=== PATIENT | male | born 1955 | race Caucasian/White ===

== ENCOUNTER 2016-12-11 03:25 | Emergency (ER) | payer OTHER ==
[2016-12-11 03:57] VITALS: BP 148/87; PULSE 76; TEMP 98.3; BMI 23.0
--- NOTE | 2016-12-11 05:20 | PDOC ---
History of Present Illness - General History Source: Patient Exam Limitations: No Limitations - History of Present Illness Initial Comments: 12/11/16 05:32 The patient is a 61 year old male with a PMHx of HTN, AFib, diabetes, hypercholesterolemia who presents to the ED with urinary frequency and dysuria for three days. The patient also reports constipation. He denies change in diet. He denies chest pain, SOB, headache, dizziness. He denies hematuria. He denies fever, chills, nausea, vomiting. <Ramila Hernandez - Last Filed: 12/11/16 05:32> <Kate Mcdonough - Last Filed: 12/11/16 07:34> - General Chief Complaint: Urinary Problem Stated Complaint: PROBLEM WITH URINATION Time Seen by Provider: 12/11/16 04:26 Past History <Ramila Hernandez - Last Filed: 12/11/16 05:32> - Past Medical History Cardiac Disorders: Yes (A-fib) Diabetes: Yes Disorders: Yes (urinary retention) HTN: Yes Hypercholesterolemia: Yes - Surgical History Abdominal Surgery: Yes (Hernia repair) - Immunization History Immunization Up to Date: Yes - Psycho/Social/Smoking Cessation Hx Suicidal Ideation: No Smoking History: Unknown if ever smoked Substance Use Type: None <Kate Mcdonough - Last Filed: 12/11/16 07:34> - Past Medical History Allergies/Adverse Reactions: Allergies Allergy/AdvReac Type Severity Reaction Status Date / Time No Known Allergies Allergy Verified 03/01/15 09:54 Home Medications: Ambulatory Orders Aspirin [ASA -] 81 mg PO DAILY 12/11/16 Glipizide Xl [Glucotrol Xl -] 5 mg PO DAILY 12/11/16 Insulin (Novolog 70/30) [Novolog Mix 70/30 Flexpen -] 0 units SQ DAILY 12/11/16 Insulin Detemir [Levemir Flextouch] 100 unit SQ ASDIR 12/11/16 Lisinopril/Hydrochlorothiazide [Lisinopril-Hctz 20-25 mg Tab] 1 each PO DAILY Metoprolol Succinate [Toprol Xl -] 25 mg PO DAILY 12/11/16 Oxybutynin Chloride [Oxybutynin Chloride ER] 10 mg PO DAILY 12/11/16 Phenazopyridine HCl [Pyridium] 100 mg PO TID #12 tablet 12/11/16 Prasugrel HCl [Effient] 10 mg PO DAILY 12/11/16 Simvastatin [Zocor -] 20 mg PO DAILY 12/11/16 Sulfamethoxazole/Trimethoprim [Bactrim Ds -] 1 tab PO BID #14 tablet 12/11/16 Tamsulosin HCl [Flomax] 0.4 mg PO DAILY 12/11/16 Review of Systems - Review of Systems Comments:: 12/11/16 05:32 GENERAL/CONSTITUTIONAL: No fever or chills. No weakness. HEAD, EYES, EARS, NOSE AND THROAT: No change in vision. No ear pain or discharge. No sore throat. CARDIOVASCULAR: No chest pain or shortness of breath. RESPIRATORY: No cough, wheezing, or hemoptysis. GASTROINTESTINAL: + constipation. No nausea, vomiting, diarrhea GENITOURINARY: + dysuria, frequency MUSCULOSKELETAL: No joint or muscle swelling or pain. No neck or back pain. SKIN: No rash NEUROLOGIC: No headache, vertigo, loss of consciousness, or change in strength/ sensation. ENDOCRINE: No increased thirst. No abnormal weight change. HEMATOLOGIC/LYMPHATIC: No anemia, easy bleeding, or history of blood clots. ALLERGIC/IMMUNOLOGIC: No hives or skin allergy. <Ramila Hernandez - Last Filed: 12/11/16 05:32> *Physical Exam - Vital Signs Last Vital Signs Temp Pulse Resp BP Pulse Ox 98.3 F 76 18 148/87 100 12/11/16 03:54 12/11/16 03:54 12/11/16 03:54 12/11/16 03:54 12/11/16 03:54 - Physical Exam Comments: 12/11/16 05:33 GENERAL: Awake, alert, and fully oriented, in no acute distress HEAD: No signs of trauma EYES: PERRLA, EOMI, sclera anicteric, conjunctiva clear ENT: Auricles normal inspection, hearing grossly normal, nares patent, oropharynx clear without exudates. Moist mucosa NECK: Normal ROM, supple, no lymphadenopathy, JVD, or masses LUNGS: Breath sounds equal, clear to auscultation bilaterally. No wheezes, and no crackles HEART: Regular rate and rhythm, normal S1 and S2, no murmurs, rubs or gallops ABDOMEN: Soft, nontender, normoactive bowel sounds. No guarding, no rebound. No masses EXTREMITIES: Normal range of motion, no edema. No clubbing or cyanosis. No cords, erythema, or tenderness NEUROLOGICAL: Cranial nerves II through XII grossly intact. Normal speech, normal gait SKIN: Warm, Dry, normal turgor, no rashes or lesions noted. <Ramila Hernandez - Last Filed: 12/11/16 05:32> - Vital Signs Last Vital Signs Temp Pulse Resp BP Pulse Ox 98.3 F 76 18 148/87 100 12/11/16 03:54 12/11/16 03:54 12/11/16 03:54 12/11/16 03:54 12/11/16 03:54 <Kate Mcdonough - Last Filed: 12/11/16 07:34> Medical Decision Making - Medical Decision Making 12/11/16 07:33 Pt comes with dysuria; no retention. He has a UTI. He will be treated with bactrim and pyridium; he can follow with Dr. Maurice, as needed. He wears contact lenses and understands that they may be stained by the pyridium. <Kate Mcdonough - Last Filed: 12/11/16 07:34> *DC/Admit/Observation/Transfer - Attestations Scribe Attestion: 12/11/16 05:33 Documentation prepared by Ramila Hernandez, acting as medical oncologist for Kate Mcdonough MD. <Ramila Hernandez - Last Filed: 12/11/16 05:32> - Discharge Dispostion Admit: No <Kate Mcdonough - Last Filed: 12/11/16 07:34> Diagnosis at time of Disposition: UTI (urinary tract infection) - Discharge Dispostion Disposition: HOME Condition at time of disposition: Stable - Prescriptions Prescriptions: Sulfamethoxazole/Trimethoprim [Bactrim Ds -] 1 tab PO BID #14 tablet Phenazopyridine HCl [Pyridium] 100 mg PO TID #12 tablet - Referrals Referrals: Saleem Harvey MD [Staff Physician] - - Patient Instructions Printed Discharge Instructions: DI for Urinary Tract Infection (UTI)
[2016-12-11] MEDS ORDERED: ACETAMINOPHEN 325 MG TABLET (FP) PO ONE (05:31)
[2016-12-11] MEDS ORDERED: SULFAMETHOXAZOLE/TRIMETHOPRIM 800MG/160MG D.S. TABLET PO ONE (05:31)
[2016-12-11] MEDS ORDERED: ACETAMINOPHEN 325 MG TABLET (FP) ONE (05:39)
[2016-12-11] MEDS ORDERED: SULFAMETHOXAZOLE/TRIMETHOPRIM 800MG/160MG D.S. TABLET ONE (05:39)
[2016-12-11 06:04] LABS: URINE APPEARANCE TURBID; URINE BILIRUBIN NEGATIVE (NEGATIVE); URINE COLOR YELLOW; URINE GLUCOSE (UA) 3+ (NEGATIVE); URINE KETONE NEGATIVE (NEGATIVE); URINE NITRITE NEGATIVE (NEGATIVE); URINE UROBILINOGEN NEGATIVE E.U./dl (0.2-1.0)
[2016-12-11 06:50] LABS: URINE BLOOD 3+ (NEGATIVE); URINE LEUK ESTERASE 3+ (NEGATIVE); URINE PROTEIN 2+ (NEGATIVE)
[2016-12-11 06:55] LABS: URINE BACTERIA FEW /hpf (NONE SEEN); URINE MUCUS FEW; URINE RBC 280 /hpf (0-3); URINE WBC 3164 /hpf (3-5); YEAST MANY
[2016-12-11] MEDS ORDERED: PHENAZOPYRIDINE HCL 100 MG TABLET (FP) PO ONE (07:01)
== END 2016-12-11 08:07 | disposition home or self-care (01) ==
LOC: JER 03:25
DX: N39.0 Urinary tract infection, site not specified (principal); I10 Essential (primary) hypertension; E11.9 Type 2 diabetes mellitus without complications; Z79.4 Long term (current) use of insulin; Z79.84 Long term (current) use of oral hypoglycemic drugs; E78.00 Pure hypercholesterolemia, unspecified; I48.91 Unspecified atrial fibrillation
CPT/HCPCS: 81003; 81015; 87086; 87186; 99282-25

== ENCOUNTER 2017-04-25 21:41 | Inpatient (IN) | payer OTHER ==
[2017-04-25] MEDS ORDERED: ALBUTEROL SO4 2.5/IPRATROPIUM 0.5 INH SOL 3 ML VIAL.NEB. NEB STA ×2 (22:17→22:18)
--- NOTE | 2017-04-25 22:17 | PDOC ---
History of Present Illness - General History Source: Patient <Cristobal Sanchez - Last Filed: 04/26/17 01:27> - General History Source: Patient Exam Limitations: No Limitations - History of Present Illness Initial Comments: 04/25/17 22:31 The patient is a 62 year old male with significant past medical history of a-fib , hypertension, hyperlipidemia, and diabetes who presents to the ED for several days of SOB and productive cough. Patient reports productive cough with yellow sputum. Denies conversational dyspnea or dyspnea on exertion. No exacerbating or alleviating factors. Patient also has complaints of chest congestion. Denies chest pain, lightheadedness, diaphoresis, jaw pain, shoulder pain, arm pain, leg swelling, nausea, or vomiting. No h/o of asthma or COPD reported. Denies any recent travels or sick contacts. The patient denies fever, chills, abdominal pain, and diarrhea. Allergies: NKDA Social History: Current smoker (half ppd). No alcohol or drug use reported. Past Surgical History: hernia repair PCP: Dr. Harinder Hardy Urologist: Dr. Romulo Candelario <Anjali Jaime - Last Filed: 04/26/17 02:45> - General Chief Complaint: Shortness of Breath Stated Complaint: SHORTNESS OF BREATH Time Seen by Provider: 04/25/17 22:02 Past History - Past Medical History Cardiac Disorders: Yes (A-fib) Diabetes: Yes Disorders: Yes (urinary retention) HTN: Yes Hypercholesterolemia: Yes - Surgical History Abdominal Surgery: Yes (Hernia repair) - Immunization History Immunization Up to Date: Yes - Psycho/Social/Smoking Cessation Hx Suicidal Ideation: No Smoking History: Current every day smoker Have you smoked in the past 12 months: Yes Number of Cigarettes Smoked Daily: 4 Information on smoking cessation initiated: No Hx Alcohol Use: No Drug/Substance Use Hx: No Substance Use Type: None <Cristobal Sanchez - Last Filed: 04/26/17 01:27> <Anjali Jaime - Last Filed: 04/26/17 02:45> - Past Medical History Allergies/Adverse Reactions: Allergies Allergy/AdvReac Type Severity Reaction Status Date / Time No Known Allergies Allergy Verified 04/25/17 22:01 Home Medications: Ambulatory Orders Aspirin [ASA -] 81 mg PO DAILY 12/11/16 Insulin (Novolog 70/30) [Novolog Mix 70/30 Flexpen -] 0 units SQ DAILY 12/11/16 Insulin Detemir [Levemir Flextouch] 100 unit SQ ASDIR 12/11/16 Lisinopril/Hydrochlorothiazide [Lisinopril-Hctz 20-25 mg Tab] 1 each PO DAILY Metoprolol Succinate [Toprol Xl -] 25 mg PO DAILY 12/11/16 Oxybutynin Chloride [Oxybutynin Chloride ER] 10 mg PO DAILY 12/11/16 Prasugrel HCl [Effient] 10 mg PO DAILY 12/11/16 Simvastatin [Zocor -] 20 mg PO DAILY 12/11/16 Tamsulosin HCl [Flomax] 0.4 mg PO DAILY 12/11/16 Glimepiride [Amaryl -] 4 mg PO DAILY@0700 03/01/17 Levofloxacin [Levaquin] 750 mg PO DAILY #9 tablet 03/02/17 Review of Systems - Review of Systems Able to Perform ROS?: Yes Comments:: 04/25/17 22:31 CONSTITUTIONAL: Absent: fever, chills, diaphoresis, generalized weakness, malaise, loss of appetite HEENT: Absent: rhinorrhea, nasal congestion, throat pain, throat swelling, difficulty swallowing, mouth swelling, ear pain, eye pain, visual Changes CARDIOVASCULAR: Absent: chest pain, syncope, palpitations, irregular heart rate, lightheadedness , peripheral edema RESPIRATORY: +productive cough with yellow sputum, SOB, chest congestion Absent: dyspnea with exertion, orthopnea, wheezing, stridor, hemoptysis GASTROINTESTINAL: Absent: abdominal pain, abdominal distension, nausea, vomiting, diarrhea, constipation, melena, hematochezia GENITOURINARY: Absent: dysuria, frequency, urgency, hesitancy, hematuria, flank pain, genital pain MUSCULOSKELETAL: Absent: myalgia, arthralgia, joint swelling SKIN: Absent: rash, itching, pallor NEUROLOGIC: Absent: headache, focal weakness or paresthesias, dizziness, unsteady gait, seizure, mental status changes, bladder or bowel incontinence <Anjali Jaime - Last Filed: 04/26/17 02:45> *Physical Exam - Vital Signs Last Vital Signs Temp Pulse Resp BP Pulse Ox 98.5 F 88 18 162/97 89 L 04/25/17 21:59 04/25/17 21:59 04/25/17 21:59 04/25/17 21:59 04/25/17 21:59 <Cristobal Sanchez - Last Filed: 04/26/17 01:27> - Vital Signs Last Vital Signs Temp Pulse Resp BP Pulse Ox 98.5 F 88 18 162/97 89 L 04/25/17 21:59 04/25/17 21:59 04/25/17 21:59 04/25/17 21:59 04/25/17 21:59 - Physical Exam Comments: 04/25/17 22:31 GENERAL: Well developed, well nourished. Awake and alert. No acute distress. HEENT: Normocephalic, atraumatic. PERRLA, EOMI. No conjunctival pallor. Sclera are non- icteric. Moist mucous membranes. Oropharynx is clear. NECK: Supple. Full ROM. No JVD. Carotid pulses 2+ and symmetric, without bruits. No thyromegaly. No lymphadenopathy. CARDIOVASCULAR: Regular rate and rhythm. No murmurs, rubs, or gallops. Distal pulses are 2+ and symmetric. PULMONARY: Mild respiratory distress. Decreased breath sounds with scattered wheezing. No conversational dyspnea. No retractions. No rales or rhonchi. ABDOMINAL: Soft. Non-tender. Non-distended. No rebound or guarding. No organomegaly. Normoactive bowel sounds. MUSCULOSKELETAL Normal range of motion at all joints. No bony deformities or tenderness. No CVA tenderness. EXTREMITIES: No cyanosis. No clubbing. No edema. No calf tenderness. SKIN: Warm and dry. Normal capillary refill. No rashes. No jaundice. NEUROLOGICAL: Alert, awake, appropriate. Cranial nerves 2-12 intact. Moving all extremities. No gross neurological deficits. <Anjali Jaime - Last Filed: 04/26/17 02:45> Heart Score/ECG Review - ECG Impressions Comment:: 04/26/17 01:29 NSR @89bpm <Anjali Jaime - Last Filed: 04/26/17 02:45> ED Treatment Course - LABORATORY CBC & Chemistry Diagram: 04/26/17 00:12 04/26/17 00:12 <Cristobal Sanchez - Last Filed: 04/26/17 01:27> - LABORATORY CBC & Chemistry Diagram: 04/26/17 00:12 04/26/17 00:12 - RADIOLOGY Radiograph Interpretation: 04/26/17 00:09 EXAM: X-ray chest Reviewed by Imaging calibration laboratory technician: FINDINGS: Heart size is normal. Bilateral interstitial opacities likely represents mild pulmonary edema. Right-sided calcified granulomas are also noted. There is a trace left pleural effusion. Bones and soft tissues are normal. IMPRESSION: Mild pulmonary edema and trace left pleural effusion, although an interstitial pneumonia is also considered. - Medications Given in the ED: ED Medications Discontinued Medications Generic Name Dose Route Start Last Admin Trade Name Freq PRN Reason Stop Dose Admin Azithromycin 500 mg 04/25/17 22:18 04/25/17 22:26 Zithromax - PO 04/25/17 22:19 500 mg ONCE STA Administration Prednisone 60 mg 04/25/17 22:18 04/25/17 22:26 Deltasone - PO 04/25/17 22:19 60 mg ONCE ONE Administration <Anjali Jaime - Last Filed: 04/26/17 02:45> Medical Decision Making - Medical Decision Making 04/26/17 01:27 Dr. Sanchez: The scribe's documentation has been prepared under my direction and personally reviewed by me in its entirery. I confirm that the note above accurately reflects all work, treatment, procedures, and medical decision making performed by me. <Cristobal Sanchez - Last Filed: 04/26/17 01:27> - Medical Decision Making 04/26/17 01:[address] Aisha Amaya (via answering service) Awaiting call back 04/26/17 01:46 Second call placed to Dr. Amaya (via answering service) Awaiting call back 04/26/17 02:44 Third call placed to Dr. Amaya (via answering service) and patient's case was discussed. <Anjali Jaime - Last Filed: 04/26/17 02:45> *DC/Admit/Observation/Transfer - Discharge Dispostion Admit: Yes <Cristobal Sanchez - Last Filed: 04/26/17 01:27> - Attestations Scribe Attestion: 04/25/17 22:31 Documentation prepared by Anjali Jaime, acting as spanish medical interpreter for Cristobal Sanchez MD/. <Anjali Jaime - Last Filed: 04/26/17 02:45> Diagnosis at time of Disposition: Elevated troponin Pneumonia Qualifiers: Pneumonia type: due to unspecified organism Laterality: left Lung location: lower lobe of lung Qualified Code(s): J18.1 - Lobar pneumonia, unspecified organism Dyspnea Qualifiers: Dyspnea type: shortness of breath Qualified Code(s): R06.02 - Shortness of breath - Referrals
[2017-04-25] MEDS ORDERED: predniSONE 20 MG TABLET (UD) PO ONE (22:18)
[2017-04-25] MEDS ORDERED: AZITHROMYCIN 250 MG TABLET (FP) PO STA (22:18)
[2017-04-25] MEDS ORDERED: AZITHROMYCIN 250 MG TABLET (FP) ONE (22:23)
[2017-04-25] MEDS ORDERED: predniSONE 20 MG TABLET (UD) ONE (22:23)
[2017-04-26] MEDS ORDERED: ALBUTEROL SO4 2.5/IPRATROPIUM 0.5 INH SOL 3 ML VIAL.NEB. NEB STA ×2 (00:01→00:45)
[2017-04-26] MEDS ORDERED: MAGNESIUM SULF 50% (8.12 MEQ/2 ML-1 GM VIAL) IVPB ONE (00:03)
[2017-04-26] MEDS ORDERED: MAGNESIUM SULF 50% (8.12 MEQ/2 ML-1 GM VIAL) ONE (00:06)
[2017-04-26] MEDS ORDERED: CEFTRIAXONE 50 ML ONE (00:07)
[2017-04-26 00:31] LABS: BASOPHIL 0.6 % (0-2.0); EOSINOPHIL 0.8 % (0-4.5); MCH 26.5 pg (25.7-33.7); MCHC 32.2 g/dl (32.0-35.9); MEAN CELL VOLUME 82.4 fl (80-96); MEAN PLT VOLUME 9.7 fl (7.5-11.1); NEUTROPHILS 79.4 % (42.8-82.8); PLATELET COUNT 228 K/MM3 (134-434); RDW 13.5 % (11.9-15.9); WHITE BLOOD COUNT 11.1 K/mm3 (4.0-10.0)
[2017-04-26 00:44] LABS: INR 1.12 (0.82-1.09); PROTHROMBIN TIME (PATIENT) 12.3 SEC (9.98-11.88)
[2017-04-26 00:55] LABS: ALBUMIN 3.4 g/dl (3.4-5.0); ANION GAP 8 (8-16); BILIRUBIN,TOTAL 3.1 mg/dL (0.2-1.0); CALCIUM 8.6 mg/dL (8.5-10.1); CO2 29 mmol/L (21-32); CREATININE 1.3 mg/dL (0.7-1.3); SGOT/AST 21 U/L (15-37); SGPT/ALT 45 U/L (12-78); TOT PROT 6.6 g/dl (6.4-8.2)
[2017-04-26 00:57] LABS: ALK PHOS 79 U/L (45-117); TROPONIN I 0.21 ng/ml (0.00-0.05)
[2017-04-26 01:00] LABS: GLUCOSE,RANDOM 400 mg/dL (74-106)
[2017-04-26] MEDS ORDERED: INSULIN REGULAR HUMAN 100 UNITS/ML *VIAL IVPUSH ONE (01:08)
[2017-04-26 05:15] VITALS: BMI 22.9
[2017-04-26] MEDS ORDERED: ACETAMINOPHEN 325 MG TABLET (FP) PO PRN (07:55)
[2017-04-26] MEDS ORDERED: INSULIN (NOVOLOG) ASPART 100 UNITS/ML 10ML VIAL ONE ×2 (08:55→22:30)
[2017-04-26] MEDS ORDERED: PT OWN MED DRAWER 7, Y5N ONE (09:01)
[2017-04-26] MEDS: LISINOPRIL 10 MG TABLET (FP) PO SCH (09:14)
[2017-04-26] MEDS: OXYBUTYNIN CHLORIDE 5 MG TABLET PO SCH ×2 (09:14→22:32)
[2017-04-26] MEDS: INSULIN SLIDING SCALE (NOVOLOG) 1 VIAL SQ SCH ×4 (09:14→22:36)
[2017-04-26] MEDS: TAMSULOSIN HCL 0.4 MG CAP.ER.24H (FP) PO SCH (09:14)
[2017-04-26] MEDS: ASPIRIN 81 MG CHEWABLE TABLETS PO SCH (09:14)
[2017-04-26] MEDS ORDERED: METOPROLOL SUCCINATE 25 MG TAB.SR.24H (FP) PO SCH (10:00)
[2017-04-26 10:57] LABS: TROPONIN I 0.16 ng/ml (0.00-0.05)
--- NOTE | 2017-04-26 11:29 | EKG ---
Test Reason : Blood Pressure : / mmHG Vent. Rate : 089 BPM Atrial Rate : 089 BPM P-R Int : 198 ms QRS Dur : 076 ms QT Int : 378 ms P-R-T Axes : 066 033 071 degrees QTc Int : 459 ms NORMAL SINUS RHYTHM NORMAL ECG NO PREVIOUS ECGS AVAILABLE Confirmed by AMELIA OLMSTEAD MD ([id number]) on 04/26/2017 11:28:26 AM Referred By: Confirmed By:AMELIA OLMSTEAD MD
--- NOTE | 2017-04-26 11:44 | HP ---
Admitting History and Physical - Primary Care Physician PCP: Aisha Amaya - Admission Chief Complaint: CHEST PAIN History of Present Illness: The patient is a 62 year old male with significant past medical history of a-fib , hypertension, hyperlipidemia, and diabetes who presents to the ED for several days of SOB and productive cough. Patient reports productive cough with yellow sputum. Denies conversational dyspnea or dyspnea on exertion. No exacerbating or alleviating factors. Patient also has complaints of chest congestion. Denies chest pain, lightheadedness, diaphoresis, jaw pain, shoulder pain, arm pain, leg swelling, nausea, or vomiting. No h/o of asthma or COPD reported. Denies any recent travels or sick contacts. The patient denies fever, chills, abdominal pain, and diarrhea. History Source: Patient, Medical Record - Smoking History Smoking history: Current every day smoker Have you smoked in the past 12 months: Yes Aproximately how many cigarettes per day: 4 - Alcohol/Substance Use Hx Alcohol Use: No Home Medications - Allergies Allergies/Adverse Reactions: Allergies Allergy/AdvReac Type Severity Reaction Status Date / Time No Known Allergies Allergy Verified 04/25/17 22:01 - Home Medications Home Medications: Ambulatory Orders Aspirin [ASA -] 81 mg PO DAILY 12/11/16 Insulin (Novolog 70/30) [Novolog Mix 70/30 Flexpen -] 0 units SQ DAILY 12/11/16 Insulin Detemir [Levemir Flextouch] 100 unit SQ ASDIR 12/11/16 Lisinopril/Hydrochlorothiazide [Lisinopril-Hctz 20-25 mg Tab] 1 each PO DAILY Metoprolol Succinate [Toprol Xl -] 25 mg PO DAILY 12/11/16 Oxybutynin Chloride [Oxybutynin Chloride ER] 10 mg PO DAILY 12/11/16 Prasugrel HCl [Effient] 10 mg PO DAILY 12/11/16 Simvastatin [Zocor -] 20 mg PO DAILY 12/11/16 Tamsulosin HCl [Flomax] 0.4 mg PO DAILY 12/11/16 Glimepiride [Amaryl -] 4 mg PO DAILY@0700 03/01/17 Levofloxacin [Levaquin] 750 mg PO DAILY #9 tablet 03/02/17 Review of Systems - Review of Systems Constitutional: reports: No Symptoms Eyes: reports: No Symptoms HENT: reports: No Symptoms Neck: reports: No Symptoms Cardiovascular: reports: Chest Pain Respiratory: reports: No Symptoms Gastrointestinal: reports: No Symptoms Genitourinary: reports: No Symptoms Musculoskeletal: reports: No Symptoms Integumentary: reports: No Symptoms Hematology/Lymphatic: reports: No Symptoms Psychiatric: reports: No Symptoms Physical Examination Vital Signs: Vital Signs Temperature 98.4 F 04/26/17 09:00 Pulse Rate 80 04/26/17 09:00 Respiratory Rate 20 04/26/17 09:00 Blood Pressure 143/91 04/26/17 09:00 O2 Sat by Pulse Oximetry (%) 95 04/26/17 09:00 Constitutional: Yes: Mild Distress Eyes: Yes: WNL HENT: Yes: WNL Neck: Yes: WNL Cardiovascular: Yes: WNL Respiratory: Yes: WNL Gastrointestinal: Yes: WNL Renal/: Yes: WNL Musculoskeletal: Yes: WNL Extremities: Yes: WNL Edema: No Peripheral Pulses WNL: Yes Integumentary: Yes: WNL Wound/Incision: Yes: Clean/Dry Neurological: Yes: WNL ...Motor Strength: WNL Psychiatric: Yes: WNL Problem List - Problems (1) Dyspnea Code(s): R06.00 - DYSPNEA, UNSPECIFIED Qualifiers: Dyspnea type: shortness of breath Qualified Code(s): R06.02 - Shortness of breath (2) Elevated troponin Code(s): R74.8 - ABNORMAL LEVELS OF OTHER SERUM ENZYMES (3) Uncontrolled diabetes mellitus Code(s): E11.65 - TYPE 2 DIABETES MELLITUS WITH HYPERGLYCEMIA Qualifiers: Diabetes mellitus type: type 2 Diabetes mellitus complication status: with unspecified complications (4) H/O heart artery stent Code(s): Z95.5 - PRESENCE OF CORONARY ANGIOPLASTY IMPLANT AND GRAFT Assessment/Plan CARDIOLOGY WORKUP LABS TELE CARDIO CONSULT ENDOCRINE CONSULT
[2017-04-26] MEDS ORDERED: MAGNESIUM HYDROX 2400MG/30ML ORAL SUSPENSION 30 ML CUP PO ONE (13:30)
[2017-04-26] MEDS: PRASUGREL HCL 10 MG TAB PO SCH (13:39)
--- NOTE | 2017-04-26 13:53 | CON.CARD ---
Consult Consult Specialty:: Cardiology Referred by:: Dr Amaya Reason for Consultation:: nstemi, chf - History of Present Illness Chief Complaint: sob History of Present Illness: 62M history of PAF, HTN, NIDDM poorly controlled, hyperlipidemia, smoker, CAD s/ p stent unknown vessel at [facility] 2014 (after abnormal stress test with small area IW ischemia normal EF) now admitted with sudden onset of SOB, orthopnea without chest pain. Noted with bilateral interstitial infiltrates and with elevated troponin. No ecg changes. Last EF 2014 was normal. - History Source History Provided By: Patient, Medical Record Limitations to Obtaining History: No Limitations - Past Medical History Cardio/Vascular: Yes: AFIB (paroxysmal), CAD, HTN, Hyperlipdemia Endocrine: Yes: Diabetes Mellitus - Alcohol/Substance Use Hx Alcohol Use: No - Smoking History Smoking history: Current every day smoker Have you smoked in the past 12 months: Yes Aproximately how many cigarettes per day: 4 Home Medications - Allergies Allergies/Adverse Reactions: Allergies Allergy/AdvReac Type Severity Reaction Status Date / Time No Known Allergies Allergy Verified 04/25/17 22:01 - Home Medications Home Medications: Ambulatory Orders Aspirin [ASA -] 81 mg PO DAILY 12/11/16 Insulin (Novolog 70/30) [Novolog Mix 70/30 Flexpen -] 0 units SQ DAILY 12/11/16 Insulin Detemir [Levemir Flextouch] 100 unit SQ ASDIR 12/11/16 Lisinopril/Hydrochlorothiazide [Lisinopril-Hctz 20-25 mg Tab] 1 each PO DAILY Metoprolol Succinate [Toprol Xl -] 25 mg PO DAILY 12/11/16 Oxybutynin Chloride [Oxybutynin Chloride ER] 10 mg PO DAILY 12/11/16 Prasugrel HCl [Effient] 10 mg PO DAILY 12/11/16 Simvastatin [Zocor -] 20 mg PO DAILY 12/11/16 Tamsulosin HCl [Flomax] 0.4 mg PO DAILY 12/11/16 Glimepiride [Amaryl -] 4 mg PO DAILY@0700 03/01/17 Levofloxacin [Levaquin] 750 mg PO DAILY #9 tablet 03/02/17 Review of Systems - Review of Systems Constitutional: reports: No Symptoms Eyes: reports: No Symptoms HENT: reports: No Symptoms Neck: reports: No Symptoms Cardiovascular: reports: Shortness of Breath Respiratory: reports: SOB, SOB on Exertion Gastrointestinal: reports: No Symptoms Genitourinary: reports: No Symptoms - Risk Factors Known Risk Factors: Yes: Diabetes Mellitus, Hypercholesterolemia, Smoking Vital Signs: Vital Signs Temperature 98.4 F 04/26/17 09:00 Pulse Rate 80 04/26/17 09:00 Respiratory Rate 20 04/26/17 09:00 Blood Pressure 143/91 04/26/17 09:00 O2 Sat by Pulse Oximetry (%) 95 04/26/17 09:00 Constitutional: Yes: Well Nourished, No Distress Eyes: Yes: Conjunctiva Clear, EOM Intact HENT: Yes: Atraumatic, Normocephalic Neck: Yes: Supple, Trachea Midline Respiratory: Yes: Rales (bilat bases) Gastrointestinal: Yes: Normal Bowel Sounds Cardiovascular: Yes: Regular Rate and Rhythm JVD: Yes Carotid Bruit: No PMI: Non-Displaced Heart Sounds: Yes: S1, S2 Musculoskeletal: Yes: WNL Extremities: Yes: WNL Edema: No Peripheral Pulses WNL: Yes Neurological: Yes: WNL - Other Data Labs, Other Data: INR, PTT INR 1.12 (0.82-1.09) 04/26/17 00:12 Troponin, BNP 04/26/17 08:25 Troponin I 0.16 H Troponin, BNP 04/26/17 08:25 Troponin I 0.16 H nsr, nl axis, intervals, no st or t wave changes. Ejection Fraction %: LVEF > or = 40 % Imaging - Results Chest X-ray: Report Reviewed (bilat inc markings, small nodules.) EKG: Report Reviewed (normal ecg) Problem List - Problems (1) Elevated troponin Assessment/Plan: He has known CAD and likely elevated tnI is due to small nstemi. continue asa and effient for now. continue home medications. Plan is for transfer to [facility] for cardiac cath poss PCI 04/27/17. Code(s): R74.8 - ABNORMAL LEVELS OF OTHER SERUM ENZYMES (2) Dyspnea Assessment/Plan: he is in mild chf on examination. check bnp, start low dose lasix. needs cardiac cath to evaluate nstemi in the setting of chf and known CAD. Code(s): R06.00 - DYSPNEA, UNSPECIFIED Qualifiers: Dyspnea type: shortness of breath Qualified Code(s): R06.02 - Shortness of breath (3) PAF (paroxysmal atrial fibrillation) Assessment/Plan: NSR at present. no AC for now. Code(s): I48.0 - PAROXYSMAL ATRIAL FIBRILLATION
[2017-04-26] MEDS ORDERED: METOPROLOL SUCCINATE 25 MG TAB.SR.24H (FP) PO ONE (15:14)
[2017-04-26] MEDS ORDERED: INSULIN DETEMIR 100 UNITS/ML MDV SQ SCH (22:00)
[2017-04-26] MEDS ORDERED: ATORVASTATIN CA 20 MG TABLET (FP) PO SCH (22:00)
[2017-04-27] MEDS: INSULIN SLIDING SCALE (NOVOLOG) 1 VIAL SQ SCH ×2 (06:33→11:06)
[2017-04-27] MEDS ORDERED: GLIMEPIRIDE 4 MG TABLET (FP) PO SCH (07:00)
[2017-04-27 07:25] LABS: MCH 27.3 pg (25.7-33.7); MCHC 33.3 g/dl (32.0-35.9); MEAN PLT VOLUME 9.5 fl (7.5-11.1); PLATELET COUNT 224 K/MM3 (134-434); RDW 13.5 % (11.9-15.9)
[2017-04-27 08:00] LABS: ALBUMIN 2.9 g/dl (3.4-5.0); ANION GAP 8 (8-16); CALCIUM 8.6 mg/dL (8.5-10.1); CO2 29 mmol/L (21-32); GLUCOSE,RANDOM 105 mg/dL (74-106)
[2017-04-27 08:05] LABS: ALK PHOS 63 U/L (45-117); BILIRUBIN,TOTAL 3.3 mg/dL (0.2-1.0); CREATININE 0.6 mg/dL (0.7-1.3); SGOT/AST 12 U/L (15-37); SGPT/ALT 34 U/L (12-78); TOT PROT 5.5 g/dl (6.4-8.2)
[2017-04-27] MEDS: LISINOPRIL 10 MG TABLET (FP) PO SCH ×2 (08:43→10:56)
[2017-04-27] MEDS: OXYBUTYNIN CHLORIDE 5 MG TABLET PO SCH ×2 (08:43→10:56)
[2017-04-27] MEDS: METOPROLOL SUCCINATE 25 MG TAB.SR.24H (FP) PO SCH ×2 (08:43→10:56)
[2017-04-27] MEDS: TAMSULOSIN HCL 0.4 MG CAP.ER.24H (FP) PO SCH (08:43)
[2017-04-27] MEDS: ASPIRIN 81 MG CHEWABLE TABLETS PO SCH ×2 (08:44→10:56)
[2017-04-27] MEDS: PRASUGREL HCL 10 MG TAB PO SCH ×2 (08:44→10:56)
--- NOTE | 2017-04-27 10:52 | DS ---
Physical Examination Vital Signs: Vital Signs Temperature 98.4 F 04/27/17 08:30 Pulse Rate 73 04/27/17 08:30 Respiratory Rate 20 04/27/17 08:30 Blood Pressure 140/81 04/27/17 08:30 O2 Sat by Pulse Oximetry (%) 94 L 04/27/17 09:00 Constitutional: Yes: Mild Distress Eyes: Yes: WNL HENT: Yes: WNL Neck: Yes: WNL Cardiovascular: Yes: WNL Respiratory: Yes: WNL Gastrointestinal: Yes: WNL Renal/: Yes: WNL Musculoskeletal: Yes: WNL Extremities: Yes: WNL Edema: No Peripheral Pulses WNL: Yes Integumentary: Yes: WNL Wound/Incision: Yes: Clean/Dry Neurological: Yes: WNL ...Motor Strength: WNL Psychiatric: Yes: WNL Labs: CBC, BMP 04/27/17 06:07 04/27/17 06:07 Discharge Summary Reason For Visit: PNEUMONIA ELEVATED TROPONIN Current Active Problems Dyspnea (Acute) Elevated troponin (Acute) H/O heart artery stent (Acute) PAF (paroxysmal atrial fibrillation) (Acute) Pneumonia (Acute) Uncontrolled diabetes mellitus (Acute) Procedures: Principal: LABS Hospital Course: ADMITTED TO TELEMETRY AND POSITIVE ACUTE CORONARY SYNDROME DIAGNOSED, TRANSFER TO [facility] FOR CARDIAC CATH Condition: Fair - Instructions Diet, Activity, Other Instructions: LOW SODIUM/FAT Referrals: Harinder Hardy MD [Primary Care Provider] - Disposition: TRANSFER ACUTE CARE/OTHER HOSP - Home Medications Comprehensive Discharge Medication List: Ambulatory Orders Aspirin [ASA -] 81 mg PO DAILY 12/11/16 Insulin (Novolog 70/30) [Novolog Mix 70/30 Flexpen -] 0 units SQ DAILY 12/11/16 Insulin Detemir [Levemir Flextouch] 100 unit SQ ASDIR 12/11/16 Lisinopril/Hydrochlorothiazide [Lisinopril-Hctz 20-25 mg Tab] 1 each PO DAILY Metoprolol Succinate [Toprol Xl -] 25 mg PO DAILY 12/11/16 Oxybutynin Chloride [Oxybutynin Chloride ER] 10 mg PO DAILY 12/11/16 Prasugrel HCl [Effient] 10 mg PO DAILY 12/11/16 Simvastatin [Zocor -] 20 mg PO DAILY 12/11/16 Tamsulosin HCl [Flomax] 0.4 mg PO DAILY 12/11/16 Glimepiride [Amaryl -] 4 mg PO DAILY@0700 03/01/17 Levofloxacin [Levaquin] 750 mg PO DAILY #9 tablet 03/02/17
[2017-04-27 13:58] VITALS: BP 132/79; PULSE 76; TEMP 98.5
== END 2017-04-27 14:35 | disposition short-term general hospital (02) | DRG 139 ==
LOC: JER 21:41 → JERBED 04-26 01:25 → J4W 04-26 04:47
PROVIDERS: ADMIT Family Medicine; ATTEND Family Medicine
DX: J18.1 Lobar pneumonia, unspecified organism (principal); E11.65 Type 2 diabetes mellitus with hyperglycemia; Z79.4 Long term (current) use of insulin; E78.00 Pure hypercholesterolemia, unspecified; I10 Essential (primary) hypertension; Z72.0 Tobacco use; I25.10 Atherosclerotic heart disease of native coronary artery without angina pectoris; Z95.5 Presence of coronary angioplasty implant and graft; I21.4 Non-ST elevation (NSTEMI) myocardial infarction; I48.0 Paroxysmal atrial fibrillation; J90 Pleural effusion, not elsewhere classified; Z79.82 Long term (current) use of aspirin
CPT/HCPCS: 36415; 71020-TC; 80053; 80061; 82550; 82553; 83036; 83721; 84484; 85025; 85027; 85610; 87040; 93005; 93010; 99285-25

== ENCOUNTER 2017-05-04 01:45 | Emergency (ER) | payer OTHER ==
[2017-05-04 01:52] VITALS: TEMP 97.8; BMI 24.5
[2017-05-04] MEDS ORDERED: ASPIRIN 81 MG CHEWABLE TABLETS PO ONE (01:55)
--- NOTE | 2017-05-04 01:55 | PDOC ---
History of Present Illness - General History Source: Patient Exam Limitations: No Limitations - History of Present Illness Initial Comments: 05/04/17 02:29 The patient is a 62 year old male, with significant past medical history of a- fib, hypertension, hyperlipidemia, and diabetes, who presents to the ED with shortness of breath and cough. Pt was seen in the ED on 04/25/17 for several days of shortness of breath and productive cough. He was a smoker at the time. He has no diagnosed history of asthma or copd. Pt was admitted for suspicion of pneumonia and elevation of troponins (nstemi [place]). Pt was transferred to [facility] for cardiac catheterization and was told that everything was negative. He was discharged a few days later. He presents to the ED today with continued shortness of breath. Pt has not smoked since. Pt denies having any chest pain or fever. He reports that his cough is now nonproductive. Pt denies any recent travel or sick contacts. <Melanie Perkins - Last Filed: 05/04/17 03:48> - General History Source: Patient <Cristobal Sanchez - Last Filed: 05/04/17 05:45> - General Chief Complaint: Shortness of Breath Stated Complaint: DIFFICULTY BREATHING Time Seen by Provider: 05/04/17 01:47 Past History <Melanie Perkins - Last Filed: 05/04/17 03:48> - Past Medical History Anemia: No Asthma: No Cancer: No Cardiac Disorders: Yes (A-fib) CVA: No COPD: No CHF: No Dementia: Yes (TYPE 2) Diabetes: Yes GI Disorders: No Disorders: Yes (urinary retention) HTN: Yes Hypercholesterolemia: Yes Liver Disease: Yes (CHI JOHN SYNDROME) Seizures: No Thyroid Disease: No - Surgical History Abdominal Surgery: Yes (Hernia repair) Appendectomy: No Cardiac Surgery: Yes (1 STENT 1/2 YRS AGO) Cholecystectomy: No Lung Surgery: No Neurologic Surgery: No Orthopedic Surgery: No - Immunization History Immunization Up to Date: Yes - Psycho/Social/Smoking Cessation Hx Suicidal Ideation: No Smoking History: Former smoker Have you smoked in the past 12 months: No Number of Cigarettes Smoked Daily: 4 If you are a former smoker, when did you quit?: 2 weeks Information on smoking cessation initiated: No Hx Alcohol Use: No Drug/Substance Use Hx: No Substance Use Type: None Hx Substance Use Treatment: No <Cristobal Sanchez - Last Filed: 05/04/17 05:45> - Past Medical History Allergies/Adverse Reactions: Allergies Allergy/AdvReac Type Severity Reaction Status Date / Time No Known Allergies Allergy Verified 05/04/17 01:49 Home Medications: Ambulatory Orders Aspirin [ASA -] 81 mg PO DAILY 12/11/16 Insulin (Novolog 70/30) [Novolog Mix 70/30 Flexpen -] 0 units SQ DAILY 12/11/16 Insulin Detemir [Levemir Flextouch] 100 unit SQ ASDIR 12/11/16 Lisinopril/Hydrochlorothiazide [Lisinopril-Hctz 20-25 mg Tab] 1 each PO DAILY Metoprolol Succinate [Toprol XL -] 25 mg PO DAILY 12/11/16 Oxybutynin Chloride [Oxybutynin Chloride ER] 10 mg PO DAILY 12/11/16 Prasugrel HCl [Effient] 10 mg PO DAILY 12/11/16 Simvastatin [Zocor -] 20 mg PO DAILY 12/11/16 Tamsulosin HCl [Flomax -] 0.4 mg PO DAILY 12/11/16 Glimepiride [Amaryl -] 4 mg PO DAILY@0700 03/01/17 Albuterol Sulfate Inhaler - [Ventolin HFA Inhaler -] 2 inh IH Q6H #1 inh Azithromycin [Zithromax -] 250 mg PO UTDICT #6 tab 05/04/17 Methylprednisolone [Medrol Dose Cas] 4 mg PO ASDIR #21 tablet 05/04/17 Tadalafil [Cialis] 5 mg PO DAILY 05/04/17 Review of Systems - Review of Systems Comments:: 05/04/17 02:32 CONSTITUTIONAL: Absent: fever, no chills, no fatigue EYES: Absent: visual changes ENT: Absent: ear pain, no sore throat CARDIOVASCULAR: Absent: chest pain, no palpitations RESPIRATORY: Present: cough, no SOB GI: Absent: abdominal pain, no nausea, no vomiting, no constipation, no diarrhea GENITOURINARY: Absent: dysuria, no frequency, no hematuria MUSKULOSKELETAL: Absent: back pain, no arthralgia, no myalgia SKIN: Absent: rash NEURO: Absent: headache <Melanie Perkins - Last Filed: 05/04/17 03:48> *Physical Exam - Vital Signs Last Vital Signs Temp Pulse Resp BP Pulse Ox 97.8 F 78 24 163/93 93 L 05/04/17 01:49 05/04/17 01:49 05/04/17 01:49 05/04/17 01:49 05/04/17 01:49 - Physical Exam Comments: 05/04/17 02:32 GENERAL: Well-appearing, well-nourished. No apparent distress. HEENT: Normocephalic, atraumatic. PERRL, EOM intact. CARDIOVASCULAR: Normal S1, S2. Regular rate and rhythm. PULMONARY: +Decreased breath sounds at the bases. ABDOMEN: Soft, non-distended, non-tender. EXTREMITIES: Normal ROM in all four extremities. No gross deformities. SKIN: Warm, dry. No rash NEUROLOGICAL: No focal neurological deficits. <Melanie Perkins - Last Filed: 05/04/17 03:48> - Vital Signs Last Vital Signs Temp Pulse Resp BP Pulse Ox 97.8 F 78 24 163/93 93 L 05/04/17 01:49 05/04/17 01:49 05/04/17 01:49 05/04/17 01:49 05/04/17 01:49 <Cristobal Sanchez - Last Filed: 05/04/17 05:45> Heart Score/ECG Review - ECG Intrepretation Comment:: 05/04/17 03:48 EKG was reviewed by Dr. Sanchez a 3:14. Impression: Normal sinus rhythm. <Melanie Perkins - Last Filed: 05/04/17 03:48> ED Treatment Course - LABORATORY CBC & Chemistry Diagram: 05/04/17 02:03 05/04/17 02:03 - ADDITIONAL ORDERS Additional order review: 05/04/17 02:03 RBC 4.24 MCV 82.5 MCHC 32.5 RDW 13.9 MPV 9.1 Neutrophils % 61.1 D Lymphocytes % 27.9 D Monocytes % 8.1 Eosinophils % 2.0 D Basophils % 0.9 <Melanie Perkins - Last Filed: 05/04/17 03:48> - LABORATORY CBC & Chemistry Diagram: 05/04/17 02:03 05/04/17 02:03 <Cristobal Sanchez Last Filed: 05/04/17 05:45> Medical Decision Making - Medical Decision Making 05/04/17 05:44 Dr. Sanchez: The scribe's documentation has been prepared under my direction and personally reviewed by me in its entirery. I confirm that the note above accurately reflects all work, treatment, procedures, and medical decision making performed by me. Patient feels better and would like to go home. Pt to follow up with Dr. Amaya on Sunday for re-evaluation. Pt troponin has improved since his last admission last week. <Cristobal Sanchez - Last Filed: 05/04/17 05:45> *DC/Admit/Observation/Transfer - Attestations Scribe Attestion: 05/04/17 02:3 Documentation prepared by Melanie Perkins, acting as medical editor for Cristobal Sanchez MD. <Melanie Perkins - Last Filed: 05/04/17 03:48> - Discharge Dispostion Admit: No <Cristobal Sanchez - Last Filed: 05/04/17 05:45> Diagnosis at time of Disposition: Dyspnea - Discharge Dispostion Disposition: HOME Condition at time of disposition: Stable - Prescriptions Prescriptions: Methylprednisolone [Medrol Dose Cas] 4 mg PO ASDIR #21 tablet Albuterol Sulfate Inhaler - [Ventolin HFA Inhaler -] 2 inh IH Q6H #1 inh Azithromycin [Zithromax -] 250 mg PO UTDICT #6 tab - Referrals Referrals: Harinder Hardy MD [Primary Care Provider] - Emil Scherer MD [Staff Physician] - Aisha Amaya MD [Staff Physician] - - Patient Instructions Printed Discharge Instructions: DI for Shortness of Breath
[2017-05-04] MEDS ORDERED: ALBUTEROL SO4 2.5/IPRATROPIUM 0.5 INH SOL 3 ML VIAL.NEB. NEB STA (01:59)
[2017-05-04] MEDS ORDERED: MAGNESIUM SULF 50% (8.12 MEQ/2 ML-1 GM VIAL) IVPB ONE (01:59)
[2017-05-04] MEDS ORDERED: methylPREDNISolone NA SUCC 125 MG/2 ML VIAL IVPB ONE (01:59)
[2017-05-04] MEDS ORDERED: MAGNESIUM SULF 50% (8.12 MEQ/2 ML-1 GM VIAL) ONE (02:08)
[2017-05-04] MEDS ORDERED: ASPIRIN 81 MG CHEWABLE TABLETS ONE (02:08)
[2017-05-04] MEDS ORDERED: ALBUTEROL SO4 2.5/IPRATROPIUM 0.5 INH SOL 3 ML VIAL.NEB. NEB ONE (02:09)
[2017-05-04] MEDS ORDERED: methylPREDNISolone NA SUCC 125 MG/2 ML VIAL ONE (02:09)
[2017-05-04 02:11] LABS: BASOPHIL 0.9 % (0-2.0); MCH 26.8 pg (25.7-33.7); MCHC 32.5 g/dl (32.0-35.9); MEAN CELL VOLUME 82.5 fl (80-96); MEAN PLT VOLUME 9.1 fl (7.5-11.1); NEUTROPHILS 61.1 % (42.8-82.8); PLATELET COUNT 280 K/MM3 (134-434); RDW 13.9 % (11.9-15.9)
[2017-05-04 02:27] LABS: INR 1.06 (0.82-1.09); PROTHROMBIN TIME (PATIENT) 11.7 SEC (9.98-11.88)
[2017-05-04 02:37] LABS: ALBUMIN 3.2 g/dl (3.4-5.0); ANION GAP 10 (8-16); CALCIUM 8.5 mg/dL (8.5-10.1); CO2 26 mmol/L (21-32); CREATININE 1.1 mg/dL (0.7-1.3); MAGNESIUM 1.8 mg/dL (1.8-2.4); SGOT/AST 27 U/L (15-37); SGPT/ALT 49 U/L (12-78); TOT PROT 6.2 g/dl (6.4-8.2)
[2017-05-04 02:40] LABS: ALK PHOS 68 U/L (45-117); TROPONIN I 0.07 ng/ml (0.00-0.05)
[2017-05-04 02:51] LABS: GLUCOSE,RANDOM 399 mg/dL (74-106)
[2017-05-04 03:18] LABS: URINE APPEARANCE CLEAR; URINE BILIRUBIN NEGATIVE (NEGATIVE); URINE BLOOD NEGATIVE (NEGATIVE); URINE COLOR YELLOW; URINE GLUCOSE (UA) 3+ (NEGATIVE); URINE KETONE NEGATIVE (NEGATIVE); URINE LEUK ESTERASE NEGATIVE (NEGATIVE); URINE NITRITE NEGATIVE (NEGATIVE)
[2017-05-04 03:23] LABS: URINE PROTEIN 1+ (NEGATIVE)
[2017-05-04 03:26] LABS: URINE BACTERIA RARE /hpf (NONE SEEN); URINE HYALINE CAST 1 /lpf; URINE MUCUS RARE; URINE RBC 1 /hpf (0-3); URINE WBC 1 /hpf (3-5)
[2017-05-04 05:14] VITALS: BP 156/89; PULSE 80
--- NOTE | 2017-05-04 09:13 | EKG ---
Test Reason : Blood Pressure : / mmHG Vent. Rate : 075 BPM Atrial Rate : 075 BPM P-R Int : 206 ms QRS Dur : 084 ms QT Int : 404 ms P-R-T Axes : 083 036 059 degrees QTc Int : 451 ms NORMAL SINUS RHYTHM RSR' OR QR PATTERN IN V1 SUGGESTS RIGHT VENTRICULAR CONDUCTION DELAY WHEN COMPARED WITH ECG OF 26-APR-2017 01:13, NO SIGNIFICANT CHANGE WAS FOUND Confirmed by JOLENE KELLEY MD ([id number]) on 05/04/2017 9:12:54 AM Referred By: Confirmed By:JOLENE KELLEY MD
== END 2017-05-04 05:57 | disposition home or self-care (01) ==
LOC: JER 01:45
PROC: 3E0F7GC Introduction of Other Therapeutic Substance into Respiratory Tract, Via Natural or Artificial Opening (ICD-10-PCS; principal; 2017-05-04)
PROC: 3E0333Z Introduction of Anti-inflammatory into Peripheral Vein, Percutaneous Approach (ICD-10-PCS; 2017-05-04)
PROC: 3E033GC Introduction of Other Therapeutic Substance into Peripheral Vein, Percutaneous Approach (ICD-10-PCS; 2017-05-04)
DX: R06.02 Shortness of breath (principal); I25.10 Atherosclerotic heart disease of native coronary artery without angina pectoris; I10 Essential (primary) hypertension; Z95.5 Presence of coronary angioplasty implant and graft; Z87.891 Personal history of nicotine dependence; I48.91 Unspecified atrial fibrillation; E11.9 Type 2 diabetes mellitus without complications; Z79.4 Long term (current) use of insulin; E78.5 Hyperlipidemia, unspecified; R33.8 Other retention of urine; E80.6 Other disorders of bilirubin metabolism
CPT/HCPCS: 36415; 71020-TC; 80053; 81003; 81015; 82550; 82553; 83735; 84484; 85025; 85610; 93005; 93010; 94640; 96374; 96375; 99284-25

== ENCOUNTER 2017-05-15 10:07 | Emergency (ER) | payer OTHER ==
[2017-05-15 10:14] VITALS: TEMP 98; BMI 24.5
--- NOTE | 2017-05-15 11:43 | PDOC ---
*Physical Exam - Vital Signs Last Vital Signs Temp Pulse Resp BP Pulse Ox 98 F 82 18 149/96 97 05/15/17 10:09 05/15/17 10:09 05/15/17 10:09 05/15/17 10:09 05/15/17 10:09 ED Treatment Course - LABORATORY CBC & Chemistry Diagram: 05/15/17 11:23 05/15/17 11:23 Medical Decision Making - Medical Decision Making 05/15/17 11:43 Pt seen by the Advanced Practice Provider under my direct supervision Ancillary studies reviewed I agree with plan as outlined by the Advanced Practice Provider GRADY Mccoy *DC/Admit/Observation/Transfer Diagnosis at time of Disposition: Cough - Discharge Dispostion Disposition: AGAINST MEDICAL ADVICE Condition at time of disposition: Fair - Referrals Referrals: Willian Lund MD [Staff Physician] - - Patient Instructions Printed Discharge Instructions: DI for Emphysema, Emphysema: How You Get It and How to Fight It Additional Instructions: Today, you are signing out AGAINST MEDICAL ADVICE I do want you to follow up with referred compressor service technician. Please also notify your physician of today's visit and today's findings. Please bring copy of your CAT scan report with you.
[2017-05-15 11:55] LABS: CALCIUM 9.3 mg/dL (8.5-10.1)
[2017-05-15 12:02] LABS: ALBUMIN 3.3 g/dl (3.4-5.0); ANION GAP 7 (8-16); BILIRUBIN,TOTAL 2.6 mg/dL (0.2-1.0); CO2 30 mmol/L (21-32); CREATININE 0.8 mg/dL (0.7-1.3); GLUCOSE,RANDOM 255 mg/dL (74-106); SGOT/AST 30 U/L (15-37); SGPT/ALT 51 U/L (12-78); TOT PROT 6.2 g/dl (6.4-8.2)
[2017-05-15 12:04] LABS: ALK PHOS 66 U/L (45-117)
--- NOTE | 2017-05-15 12:12 | PDOC ---
History of Present Illness - General Chief Complaint: Shortness of Breath Stated Complaint: CONGESTION Time Seen by Provider: 05/15/17 10:38 History Source: Patient Exam Limitations: No Limitations - History of Present Illness Initial Comments: 05/15/17 11:07 62-year-old male with history of diabetes, A. fib, and ex-smoker (4 weeks ago ) presents with continual dry cough causing him difficulty taking a deep breath and mild shortness of breath during coughing episodes. Patient states symptoms are not worse at a certain time of the day and is not aggravated by certain activity. Patient denies lower extremity edema, chest pain, palpitations, fever , productive cough, abdominal pain, back pain, or weakness. Patient does state has had intermittent chills since onset which began approximately 4 weeks ago. Patient states was treated with IV antibiotics initially due to a pneumonia and then treated with antibiotics by mouth for bronchitis which he completed including the prednisone. Timing/Duration: reports: changing over time Severity: reports: mild Possible Cause: Yes: occasional episodes Associated Symptoms: reports: cough, fever/chills (chills only), shortness of breath. denies: wheezing Past History - Travel Traveled outside of the country in the last 30 days: No Close contact w/someone who was outside of country & ill: No - Past Medical History Allergies/Adverse Reactions: Allergies Allergy/AdvReac Type Severity Reaction Status Date / Time No Known Allergies Allergy Verified 05/15/17 10:14 Home Medications: Ambulatory Orders Aspirin [ASA -] 81 mg PO DAILY 12/11/16 Insulin (Novolog 70/30) [Novolog Mix 70/30 Flexpen -] 0 units SQ DAILY 12/11/16 Insulin Detemir [Levemir Flextouch] 100 unit SQ ASDIR 12/11/16 Lisinopril/Hydrochlorothiazide [Lisinopril-Hctz 20-25 mg Tab] 1 each PO DAILY Metoprolol Succinate [Toprol XL -] 25 mg PO DAILY 12/11/16 Oxybutynin Chloride [Oxybutynin Chloride ER] 10 mg PO DAILY 12/11/16 Prasugrel HCl [Effient] 10 mg PO DAILY 12/11/16 Simvastatin [Zocor -] 20 mg PO DAILY 12/11/16 Tamsulosin HCl [Flomax -] 0.4 mg PO DAILY 12/11/16 Glimepiride [Amaryl -] 4 mg PO DAILY@0700 03/01/17 Albuterol Sulfate Inhaler - [Ventolin HFA Inhaler -] 2 inh IH Q6H #1 inh Azithromycin [Zithromax -] 250 mg PO UTDICT #6 tab 05/04/17 Methylprednisolone [Medrol Dose Cas] 4 mg PO ASDIR #21 tablet 05/04/17 Tadalafil [Cialis] 5 mg PO DAILY 05/04/17 Anemia: No Asthma: No Cancer: No Cardiac Disorders: Yes (A-fib) CVA: No COPD: No CHF: No Dementia: Yes (TYPE 2) Diabetes: Yes GI Disorders: No Disorders: Yes (urinary retention) HTN: Yes Hypercholesterolemia: Yes Liver Disease: Yes (CHI JOHN SYNDROME) Seizures: No Thyroid Disease: No - Surgical History Abdominal Surgery: Yes (Hernia repair) Appendectomy: No Cardiac Surgery: Yes (1 STENT 1/2 YRS AGO) Cholecystectomy: No Lung Surgery: No Neurologic Surgery: No Orthopedic Surgery: No - Immunization History Immunization Up to Date: Yes - Psycho/Social/Smoking Cessation Hx Suicidal Ideation: No Smoking History: Current every day smoker Have you smoked in the past 12 months: Yes Number of Cigarettes Smoked Daily: 4 If you are a former smoker, when did you quit?: 2 weeks Information on smoking cessation initiated: No Hx Alcohol Use: No Drug/Substance Use Hx: No Substance Use Type: None Hx Substance Use Treatment: No Patient Lives Alone: No Respiratory Specific PMHX - Complaint Specific PMHX Bronchitis: Yes Pneumonia: Yes Review of Systems - Review of Systems Able to Perform ROS?: Yes Constitutional: Yes: Chills HEENTM: No: Symptoms Reported Respiratory: Yes: Cough. No: Orthopnea, Wheezing Cardiac (ROS): No: Symptoms Reported ABD/GI: No: Symptoms Reported : No: Symptoms Reported Musculoskeletal: No: Symptoms Reported Integumentary: No: Symptoms Reported Neurological: No: Symptoms reported *Physical Exam - Vital Signs Last Vital Signs Temp Pulse Resp BP Pulse Ox 98 F 82 18 149/96 97 05/15/17 10:09 05/15/17 10:09 05/15/17 10:09 05/15/17 10:05/15/17 10:09 - Physical Exam General Appearance: Yes: Nourished, Appropriately Dressed. No: Apparent Distress HEENT: positive: EOMI, LAINE, TMs Normal, Pharynx Normal. negative: Pale Conjunctivae Neck: positive: Supple Respiratory/Chest: positive: Lungs Clear, Normal Breath Sounds. negative: Respiratory Distress, Accessory Muscle Use Cardiovascular: positive: Regular Rhythm, Regular Rate. negative: Murmur Gastrointestinal/Abdominal: negative: Distended, Tenderness Extremity: positive: Normal Capillary Refill. negative: Pedal Edema Integumentary: positive: Normal Color, Warm, Moist Neurologic: positive: Motor Strength 5/5 (ambulatory) ED Treatment Course - LABORATORY CBC & Chemistry Diagram: 05/15/17 11:23 05/15/17 11:23 - ADDITIONAL ORDERS Additional order review: Laboratory Results 05/15/17 11:23 Sodium 139 Potassium 4.2 Chloride 102 Carbon Dioxide 30 Anion Gap 7 L BUN 20 H Creatinine 0.8 D Creat Clearance w eGFR > 60 Random Glucose 255 H D Calcium 9.3 Total Bilirubin 2.6 H D AST 30 ALT 51 Alkaline Phosphatase 66 Creatine Kinase 239 Troponin I 0.10 H D Total Protein 6.2 L Albumin 3.3 L - RADIOLOGY Radiology Studies Ordered: Category Date Time Status CHEST CT WITHOUT CONTRAST [CT] Stat CT Scan 05/15/17 11:04 Taken Medical Decision Making - Medical Decision Making 05/15/17 12:00 Patient with continual dry cough despite being on antibiotics 2. Patient on exam had a normal O2 sat of 98% on room air with no lower extremity edema or abnormal lung sounds. Patient's previous chest x-ray reviewed and labs were improved. Patient ordered for CT of the chest without contrast. Patient also ordered for labs including troponin and EKG. 05/15/17 13:11 Laboratory Tests 04/26/17 05/04/17 05/15/17 08:25 02:03 11:23 WBC 8.5 Hgb 12.1 Hct 36.4 Plt Count 237 Neutrophils % 73.2 Sodium Potassium Chloride Carbon Dioxide Anion Gap BUN Creatinine Random Glucose 399 H* D Calcium Total Bilirubin AST ALT CK-MB (CK-2) 2.53 Troponin I 0.16 H 0.07 H D 05/15/17 11:23 WBC Hgb Hct Plt Count Neutrophils % Sodium 139 Potassium 4.2 Chloride 102 Carbon Dioxide 30 Anion Gap 7 L BUN 20 H Creatinine 0.8 D Random Glucose 255 H D Calcium 9.3 Total Bilirubin 2.6 H D AST 30 ALT 51 CK-MB (CK-2) 5.912 H Troponin I 0.10 H D 05/15/17 13:[address] Amaya to admit for Dr. Emanuel 05/15/17 13:49 CT of the chest shows emphysema changes to the central lobular region. There is also mild bronchiolectasis present at the bases. There is noted fine granuloma in the right base right middle lobe and right upper lobe. Patient also noncalcified 4.9 mm nodule present within the left upper lobe. A 3.8 mm subpleural nodule noted in the left upper lobe and a 4.4 mm subpleural nodule noted within the lateral segment of the right middle lobe. Is also noted a small pleural effusions present bilateral larger on the right. Patient will be given a DuoNeb and will be admitted for COPD exacerbation and elevated troponin. 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 Patient states cannot loose this income. Patient stands he has to sign out AGAINST MEDICAL ADVICE and is fully aware that he may develop respiratory distress and then he has elevated troponins. Patient will complete the AMA forms. *DC/Admit/Observation/Transfer Diagnosis at time of Disposition: Cough - Discharge Dispostion Disposition: AGAINST MEDICAL ADVICE Condition at time of disposition: Fair - Referrals Referrals: Willian Lund MD [Staff Physician] - - Patient Instructions Printed Discharge Instructions: DI for Emphysema, Emphysema: How You Get It and How to Fight It Additional Instructions: Today, you are signing out AGAINST MEDICAL ADVICE I do want you to follow up with referred veterinarian helper. Please also notify your physician of today's visit and today's findings. Please bring copy of your CAT scan report with you.
[2017-05-15 12:13] LABS: MEAN PLT VOLUME 9.8 fl (7.5-11.1); WHITE BLOOD COUNT 8.5 K/mm3 (4.0-10.0)
[2017-05-15 12:15] LABS: BASOPHIL 0.6 % (0-2.0); EOSINOPHIL 1.3 % (0-4.5); MCH 27.4 pg (25.7-33.7); MCHC 33.3 g/dl (32.0-35.9); MEAN CELL VOLUME 82.3 fl (80-96); NEUTROPHILS 73.2 % (42.8-82.8); PLATELET COUNT 237 K/MM3 (134-434); RDW 14.2 % (11.9-15.9)
[2017-05-15 12:37] LABS: CK INDEX FOR DOBBS 2.5 % (0.0-5.0)
[2017-05-15] MEDS ORDERED: ALBUTEROL SO4 2.5/IPRATROPIUM 0.5 INH SOL 3 ML VIAL.NEB. NEB ONE ×2 (13:42→13:49)
--- NOTE | 2017-05-15 13:46 | EKG ---
Test Reason : Blood Pressure : / mmHG Vent. Rate : 075 BPM Atrial Rate : 075 BPM P-R Int : 200 ms QRS Dur : 078 ms QT Int : 390 ms P-R-T Axes : 082 032 079 degrees QTc Int : 435 ms NORMAL SINUS RHYTHM RSR' INV1-V2 COMPATIBLE WITH INCOMPLETE RBBB LEFT ATRIAL ABNORMALITY ABNORMAL ECG WHEN COMPARED WITH ECG OF 04-MAY-2017 03:14, NO SIGNIFICANT CHANGE WAS FOUND Confirmed by MARISABEL CHANCE MD ([id number]) on 05/15/2017 1:46:07 PM Referred By: Confirmed By:MARISABEL CHANCE MD
[2017-05-15 15:10] VITALS: BP 150/70; PULSE 80
== END 2017-05-15 15:09 | disposition left against medical advice (07) ==
LOC: JER 10:07
PROC: 3E0F7GC Introduction of Other Therapeutic Substance into Respiratory Tract, Via Natural or Artificial Opening (ICD-10-PCS; principal; 2017-05-15)
DX: J43.8 Other emphysema (principal); Z87.891 Personal history of nicotine dependence; Z79.4 Long term (current) use of insulin; Z79.84 Long term (current) use of oral hypoglycemic drugs; I10 Essential (primary) hypertension; I48.91 Unspecified atrial fibrillation; R33.8 Other retention of urine; Z95.5 Presence of coronary angioplasty implant and graft
CPT/HCPCS: 36415; 71250-TC; 80053; 82550; 82553; 84484; 85025; 93005; 93010; 94640; 99282-25

== ENCOUNTER 2017-07-09 08:41 | Observation (INO) | payer OTHER ==
--- NOTE | 2017-07-09 09:02 | PDOC ---
History of Present Illness - General Chief Complaint: Shortness of Breath Stated Complaint: DIFFICULTY BREATHING, LEG PAIN Time Seen by Provider: 07/09/17 09:01 - History of Present Illness Initial Comments: The patient is a 62 year old male, with significant past medical history of a- fib, hypertension, hyperlipidemia, and diabetes who presents to the ED with shortness of breath and cough for the past few weeks that has progressively worsening. States that he has also had orthopnea and has been sleeping on more pillows than usual. Denies PND. His SOB has decreased his walking capacity from over a mile to less than a block. 07/09/17 09:06 Past History - Past Medical History Allergies/Adverse Reactions: Allergies Allergy/AdvReac Type Severity Reaction Status Date / Time No Known Allergies Allergy Verified 07/09/17 08:47 Home Medications: Ambulatory Orders Aspirin [ASA -] 81 mg PO DAILY 12/11/16 Insulin (Novolog 70/30) [Novolog Mix 70/30 Flexpen -] 0 units SQ DAILY 12/11/16 Lisinopril/Hydrochlorothiazide [Lisinopril-Hctz 20-25 mg Tab] 1 each PO DAILY Metoprolol Succinate [Toprol XL -] 25 mg PO DAILY 12/11/16 Oxybutynin Chloride [Oxybutynin Chloride ER] 10 mg PO DAILY 12/11/16 Prasugrel HCl [Effient] 10 mg PO DAILY 12/11/16 Simvastatin [Zocor -] 20 mg PO DAILY 12/11/16 Tamsulosin HCl [Flomax -] 0.4 mg PO DAILY 12/11/16 Glimepiride [Amaryl -] 4 mg PO DAILY@0700 03/01/17 Albuterol Sulfate Inhaler - [Ventolin HFA Inhaler -] 2 inh IH Q6H #1 inh Tadalafil [Cialis] 5 mg PO DAILY 05/04/17 Insulin Glargine,Hum.rec.anlog [Basaglar Kwikpen U-100] 30 unit SQ HS 07/09/17 Anemia: No Asthma: No Cancer: No Cardiac Disorders: Yes (A-fib) CVA: No COPD: No CHF: No Dementia: Yes (TYPE 2) Diabetes: Yes GI Disorders: No Disorders: Yes (urinary retention) HTN: Yes Hypercholesterolemia: Yes Liver Disease: Yes (CHI JOHN SYNDROME) Seizures: No Thyroid Disease: No - Surgical History Abdominal Surgery: Yes (Hernia repair) Appendectomy: No Cardiac Surgery: Yes (1 STENT) Cholecystectomy: Yes Lung Surgery: No Neurologic Surgery: No Orthopedic Surgery: No - Immunization History Immunization Up to Date: Yes - Suicide/Smoking/Psychosocial Hx Anxiety: No Suicidal Ideation: No Smoking History: Former smoker Have you smoked in the past 12 months: Yes Number of Cigarettes Smoked Daily: 4 If you are a former smoker, when did you quit?: 2 weeks Information on smoking cessation initiated: Yes 'Breaking Loose' booklet given: 07/09/17 Hx Alcohol Use: No Drug/Substance Use Hx: No Substance Use Type: None Hx Substance Use Treatment: No *Physical Exam - Vital Signs Last Vital Signs Temp Pulse Resp BP Pulse Ox 98.3 F 69 18 152/100 100 07/09/17 08:48 07/09/17 08:48 07/09/17 08:48 07/09/17 08:48 07/09/17 08:48 ED Treatment Course - LABORATORY CBC & Chemistry Diagram: 07/09/17 09:30 07/09/17 09:30 Medical Decision Making - Medical Decision Making 62 ear old male with signs of volume overload. BNP returned at 3500 with electrolytes WNL. Gave 20 IV lasix and 40 meq of oral potassium. Will reevaluate in an hour. 07/09/17 12:14 Patient had 1.5 Liter output within 2 hours and pitting edema improved with subjective SOB improvement. However, troponin returned at 0.21 which it has been elevated to in the past but will touch base with Dr. Hardy regarding admission. 07/09/17 14:13 07/09/17 14:[address] Amaya are OK with admittign the patient under tele obs. 07/09/17 14:36 *DC/Admit/Observation/Transfer Diagnosis at time of Disposition: Elevated troponin - Discharge Dispostion Condition at time of disposition: Stable Admit: Yes - Referrals Referrals: Harinder Hardy MD [Primary Care Provider] -
--- NOTE | 2017-07-09 09:14 | PDOC ---
Attending Attestation - Resident Resident Name: Diana Conteh - ED Attending Attestation I have performed the following: I have examined & evaluated the patient, The case was reviewed & discussed with the resident, I agree w/resident's findings & plan, Exceptions are as noted - HPI HPI: 07/15/17 09:49 62 yo with A-Fib and CHF presents with PICKETT and orthopnea - Physicial Exam PE: 07/15/17 09:50 VSS, Oxygenating well, JVD and Rales - Medical Decision Making 07/15/17 09:[address] Conteh's assessment and plan
[2017-07-09 09:54] LABS: BASOPHIL 0.8 % (0-2.0); EOSINOPHIL 1.7 % (0-4.5); MCH 26.4 pg (25.7-33.7); MCHC 32.7 g/dl (32.0-35.9); MEAN CELL VOLUME 80.9 fl (80-96); MEAN PLT VOLUME 9.3 fl (7.5-11.1); NEUTROPHILS 66.7 % (42.8-82.8); PLATELET COUNT 208 K/MM3 (134-434); RDW 14.4 % (11.9-15.9); WHITE BLOOD COUNT 6.9 K/mm3 (4.0-10.0)
[2017-07-09 10:22] LABS: ALBUMIN 3.1 g/dl (3.4-5.0); ANION GAP 6 (8-16); BILIRUBIN,TOTAL 3.3 mg/dL (0.2-1.0); CALCIUM 8.3 mg/dL (8.5-10.1); CO2 29 mmol/L (21-32); CREATININE 0.8 mg/dL (0.7-1.3); GLUCOSE,RANDOM 182 mg/dL (74-106); MAGNESIUM 1.8 mg/dL (1.8-2.4); PHOSPHOROUS 3.6 mg/dL (2.5-4.9); SGOT/AST 22 U/L (15-37); SGPT/ALT 45 U/L (12-78); TOT PROT 5.9 g/dl (6.4-8.2)
[2017-07-09 10:25] LABS: ALK PHOS 72 U/L (45-117)
[2017-07-09] MEDS ORDERED: FUROSEMIDE 40 MG/4 ML INJECTABLE VIAL IVPUSH ONE (11:11)
[2017-07-09] MEDS ORDERED: POTASSIUM CHLORIDE TABS 20 MEQ TABLET.ER (FP) PO ONE ×2 (11:13→11:29)
[2017-07-09 11:25] LABS: CPK 252 IU/L (39-308)
[2017-07-09 11:26] LABS: TROPONIN I 0.21 ng/ml (0.00-0.05)
[2017-07-09] MEDS ORDERED: FUROSEMIDE 40 MG/4 ML INJECTABLE VIAL ONE (11:29)
[2017-07-09 12:57] LABS: URINE APPEARANCE CLEAR; URINE BILIRUBIN NEGATIVE (NEGATIVE); URINE BLOOD 1+ (NEGATIVE); URINE COLOR YELLOW; URINE GLUCOSE (UA) 1+ (NEGATIVE); URINE KETONE NEGATIVE (NEGATIVE); URINE LEUK ESTERASE NEGATIVE (NEGATIVE); URINE NITRITE NEGATIVE (NEGATIVE); URINE UROBILINOGEN NEGATIVE mg/dL (0.2-1.0)
[2017-07-09 12:58] LABS: URINE PROTEIN 2+ (NEGATIVE)
[2017-07-09 13:00] LABS: URINE MUCUS RARE; URINE RBC 5 /hpf (0-3); URINE WBC 1 /hpf (3-5)
--- NOTE | 2017-07-09 13:52 | EKG ---
Test Reason : Blood Pressure : / mmHG Vent. Rate : 092 BPM Atrial Rate : 108 BPM P-R Int : 000 ms QRS Dur : 076 ms QT Int : 366 ms P-R-T Axes : 000 018 019 degrees QTc Int : 452 ms ATRIAL FIBRILLATION NONSPECIFIC T WAVE ABNORMALITY ABNORMAL ECG WHEN COMPARED WITH ECG OF 15-MAY-2017 11:18, ATRIAL FIBRILLATION HAS REPLACED SINUS RHYTHM T WAVE VARIATION Confirmed by DO LILLY MD ([id number]) on 07/09/2017 1:51:40 PM Referred By: Confirmed By:DO LILLY MD
[2017-07-09] MEDS ORDERED: BACITRACIN 0.9 GM PACKET ONE (15:39)
[2017-07-09 16:09] LABS: TROPONIN I 0.2 ng/ml (0.00-0.05)
[2017-07-09 16:15] VITALS: BMI 25.0
--- NOTE | 2017-07-09 17:57 | HP ---
Admitting History and Physical - Primary Care Physician PCP: Aisha Amaya - Admission Chief Complaint: DYSPNEA/RESP DISTRESS History of Present Illness: The patient is a 62 year old male, with significant past medical history of a- fib, hypertension, hyperlipidemia, and diabetes who presents to the ED with shortness of breath and cough for the past few weeks that has progressively worsening. States that he has also had orthopnea and has been sleeping on more pillows than usual. Denies PND. His SOB has decreased his walking capacity from over a mile to less than a block. History Source: Patient - Past Medical History Cardiovascular: Yes: AFIB (paroxysmal), CAD, HTN, Hyperlipdemia Endocrine: Yes: Diabetes Mellitus - Smoking History Smoking history: Former smoker Have you smoked in the past 12 months: Yes Aproximately how many cigarettes per day: 4 If you are a former smoker, when did you quit?: 2 weeks - Alcohol/Substance Use Hx Alcohol Use: No Home Medications - Allergies Allergies/Adverse Reactions: Allergies Allergy/AdvReac Type Severity Reaction Status Date / Time No Known Allergies Allergy Verified 07/09/17 08:47 - Home Medications Home Medications: Ambulatory Orders Aspirin [ASA -] 81 mg PO DAILY 12/11/16 Insulin (Novolog 70/30) [Novolog Mix 70/30 Flexpen -] 0 units SQ DAILY 12/11/16 Lisinopril/Hydrochlorothiazide [Lisinopril-Hctz 20-25 mg Tab] 1 each PO DAILY Metoprolol Succinate [Toprol XL -] 25 mg PO DAILY 12/11/16 Oxybutynin Chloride [Oxybutynin Chloride ER] 10 mg PO DAILY 12/11/16 Prasugrel HCl [Effient] 10 mg PO DAILY 12/11/16 Simvastatin [Zocor -] 20 mg PO DAILY 12/11/16 Tamsulosin HCl [Flomax -] 0.4 mg PO DAILY 12/11/16 Glimepiride [Amaryl -] 4 mg PO DAILY@0700 03/01/17 Albuterol Sulfate Inhaler - [Ventolin HFA Inhaler -] 2 inh IH Q6H #1 inh Tadalafil [Cialis] 5 mg PO DAILY 05/04/17 Insulin Glargine,Hum.rec.anlog [Basaglar Kwikpen U-100] 30 unit SQ HS 07/09/17 Review of Systems - Review of Systems Constitutional: reports: Weakness Eyes: reports: No Symptoms HENT: reports: No Symptoms Neck: reports: No Symptoms Cardiovascular: reports: No Symptoms Respiratory: reports: Cough, SOB on Exertion Gastrointestinal: reports: No Symptoms Genitourinary: reports: No Symptoms Musculoskeletal: reports: No Symptoms Integumentary: reports: No Symptoms Neurological: reports: No Symptoms Endocrine: reports: No Symptoms Hematology/Lymphatic: reports: No Symptoms Psychiatric: reports: No Symptoms Physical Examination Vital Signs: Vital Signs Temperature 98.8 F 07/09/17 17:11 Pulse Rate 92 H 07/09/17 17:11 Respiratory Rate 18 07/09/17 17:11 Blood Pressure 158/105 07/09/17 17:11 O2 Sat by Pulse Oximetry (%) 98 07/09/17 16:15 Constitutional: Yes: Mild Distress Eyes: Yes: WNL HENT: Yes: WNL Neck: Yes: WNL Cardiovascular: Yes: WNL Respiratory: Yes: Cough, On Nasal O2, Poor Air Entry, Rhonchi Gastrointestinal: Yes: WNL Renal/: Yes: WNL Musculoskeletal: Yes: Muscle Weakness Extremities: Yes: WNL Edema: No Peripheral Pulses WNL: Yes Integumentary: Yes: WNL Wound/Incision: Yes: Clean/Dry Neurological: Yes: WNL ...Motor Strength: WNL Psychiatric: Yes: WNL Imaging - Results Chest X-ray: Report Reviewed Problem List - Problems (1) Elevated troponin Code(s): R74.8 - ABNORMAL LEVELS OF OTHER SERUM ENZYMES (2) Cough Code(s): R05 - COUGH (3) Dyspnea Code(s): R06.00 - DYSPNEA, UNSPECIFIED (4) H/O heart artery stent Code(s): Z95.5 - PRESENCE OF CORONARY ANGIOPLASTY IMPLANT AND GRAFT (5) Acute exacerbation of chronic obstructive pulmonary disease (COPD) Code(s): J44.1 - CHRONIC OBSTRUCTIVE PULMONARY DISEASE W (ACUTE) EXACERBATION Assessment/Plan IV ABX NEBS PULM EVAL CARDIO EVAL DIABETIC SSI
[2017-07-09] MEDS ORDERED: ACETAMINOPHEN 325 MG TABLET (FP) PO PRN (18:00)
[2017-07-09] MEDS ORDERED: cefTRIAXone SODIUM 1 GM VIAL ONE (18:48)
[2017-07-09] MEDS ORDERED: DEXTROSE 5%-WATER - 50 ML IVPB ONE (18:48)
[2017-07-09] MEDS: methylPREDNISolone NA SUCC 40 MG/1 ML VIAL IVPB SCH (18:52)
[2017-07-09] MEDS: CEFTRIAXONE 1 GM in DEXTROSE 5%-WATER - 50 ML IVPB SCH (18:53)
[2017-07-09] MEDS ORDERED: PT OWN MED DRAWER 7, Y5N ONE ×2 (19:27→21:02)
[2017-07-09] MEDS ORDERED: INSULIN (NOVOLOG) ASPART 100 UNITS/ML 10ML VIAL ONE (21:03)
[2017-07-09] MEDS: ATORVASTATIN CA 10 MG TABLET (FP) PO SCH (21:14)
[2017-07-09] MEDS: OXYBUTYNIN CHLORIDE 5 MG TABLET PO SCH (21:14)
[2017-07-09] MEDS: AZITHROMYCIN 500 MG TABLET PO SCH (21:15)
[2017-07-09] MEDS: INSULIN SLIDING SCALE (NOVOLOG) 1 VIAL SQ SCH (21:19)
[2017-07-09] MEDS: traMADol HCL 50 MG TABLET PO PRN (22:10)
[2017-07-09] MEDS: ALBUTEROL SO4 2.5/IPRATROPIUM 0.5 INH SOL 3 ML VIAL.NEB. NEB PRN (23:00)
[2017-07-10] MEDS: methylPREDNISolone NA SUCC 40 MG/1 ML VIAL IVPB SCH ×2 (02:14→09:29)
[2017-07-10] MEDS: GLIMEPIRIDE 4 MG TABLET (FP) PO SCH (06:28)
[2017-07-10] MEDS: INSULIN SLIDING SCALE (NOVOLOG) 1 VIAL SQ SCH ×4 (06:29→23:39)
[2017-07-10] MEDS ORDERED: INSULIN (NOVOLOG MIX 70/30) 100 UNITS/ML MDV SQ SCH (07:00)
[2017-07-10 08:25] LABS: MCH 26.3 pg (25.7-33.7); MCHC 32.6 g/dl (32.0-35.9); MEAN CELL VOLUME 80.7 fl (80-96); MEAN PLT VOLUME 10.4 fl (7.5-11.1); PLATELET COUNT 207 K/MM3 (134-434); RDW 14.1 % (11.9-15.9); WHITE BLOOD COUNT 8.5 K/mm3 (4.0-10.0)
[2017-07-10] MEDS ORDERED: TAMSULOSIN HCL 0.4 MG CAP.ER.24H (FP) PO SCH (08:30)
[2017-07-10 09:00] LABS: ALBUMIN 3.2 g/dl (3.4-5.0); ALK PHOS 77 U/L (45-117); ANION GAP 8 (8-16); BILIRUBIN,TOTAL 4.1 mg/dL (0.2-1.0); CHOLESTEROL 95 mg/dL (50-200); CO2 27 mmol/L (21-32); CREATININE 0.9 mg/dL (0.7-1.3); SGOT/AST 21 U/L (15-37); SGPT/ALT 43 U/L (12-78); TOT PROT 6.2 g/dl (6.4-8.2)
[2017-07-10] MEDS ORDERED: PT OWN MED DRAWER 7, Y5N ONE (09:22)
[2017-07-10] MEDS ORDERED: DEXTROSE 5%-WATER - 50 ML IVPB ONE (09:22)
[2017-07-10] MEDS ORDERED: cefTRIAXone SODIUM 1 GM VIAL ONE (09:22)
[2017-07-10 09:27] LABS: GLUCOSE,RANDOM 371 mg/dL (74-106)
[2017-07-10] MEDS: FUROSEMIDE 40 MG/4 ML INJECTABLE VIAL IVPB SCH (09:29)
[2017-07-10] MEDS: ASPIRIN COATED 81 MG TABLET.EC PO SCH (09:29)
[2017-07-10] MEDS: CEFTRIAXONE 1 GM in DEXTROSE 5%-WATER - 50 ML IVPB SCH (09:29)
[2017-07-10] MEDS: OXYBUTYNIN CHLORIDE 5 MG TABLET PO SCH ×2 (09:29→22:46)
[2017-07-10] MEDS: LISINOPRIL 10 MG TABLET (FP) PO SCH (09:30)
[2017-07-10] MEDS: METOPROLOL SUCCINATE 25 MG TAB.SR.24H (FP) PO SCH (09:30)
[2017-07-10] MEDS: traMADol HCL 50 MG TABLET PO PRN ×2 (09:30→18:48)
[2017-07-10] MEDS: AZITHROMYCIN 500 MG TABLET PO SCH (09:31)
[2017-07-10] MEDS: PRASUGREL HCL 10 MG TAB PO SCH (09:31)
[2017-07-10] MEDS ORDERED: methylPREDNISolone NA SUCC 40 MG/1 ML VIAL IVPB SCH ×2 (10:00→22:00)
[2017-07-10] MEDS: ALBUTEROL SO4 2.5/IPRATROPIUM 0.5 INH SOL 3 ML VIAL.NEB. NEB PRN ×2 (10:41→21:30)
[2017-07-10] MEDS ORDERED: INSULIN (NOVOLOG) ASPART 100 UNITS/ML 10ML VIAL ONE ×4 (12:14→22:33)
--- NOTE | 2017-07-10 13:47 | CONSULT ---
Consult Consult Specialty:: Nephrology Reason for Consultation:: proteinuria - History of Present Illness Chief Complaint: shortness of breath History of Present Illness: Pt is a 62 year old male with pmhx of a-fib, HTN, chol and DM who presents to the ER with shortness of breath and cough. He also complains of lower extremity edema. He says he needs several pillows under his head to breath comfortably at night. He denies chest pain or palpitations. He was found to have proteinuria and I was called to evaluate him. He denies history of CKD. He says his father was on dialysis. He denies nsaid use. - History Source History Provided By: Patient, Medical Record - Past Medical History Cardio/Vascular: Yes: AFIB (paroxysmal), CAD, HTN, Hyperlipdemia Endocrine: Yes: Diabetes Mellitus - Alcohol/Substance Use Hx Alcohol Use: No - Smoking History Smoking history: Former smoker Have you smoked in the past 12 months: Yes Aproximately how many cigarettes per day: 4 If you are a former smoker, when did you quit?: 2 weeks Home Medications - Allergies Allergies/Adverse Reactions: Allergies Allergy/AdvReac Type Severity Reaction Status Date / Time No Known Allergies Allergy Verified 07/09/17 08:47 - Home Medications Home Medications: Ambulatory Orders Aspirin [ASA -] 81 mg PO DAILY 12/11/16 Insulin (Novolog 70/30) [Novolog Mix 70/30 Flexpen -] 0 units SQ DAILY 12/11/16 Lisinopril/Hydrochlorothiazide [Lisinopril-Hctz 20-25 mg Tab] 1 each PO DAILY Metoprolol Succinate [Toprol XL -] 25 mg PO DAILY 12/11/16 Oxybutynin Chloride [Oxybutynin Chloride ER] 10 mg PO DAILY 12/11/16 Prasugrel HCl [Effient] 10 mg PO DAILY 12/11/16 Simvastatin [Zocor -] 20 mg PO DAILY 12/11/16 Tamsulosin HCl [Flomax -] 0.4 mg PO DAILY 12/11/16 Glimepiride [Amaryl -] 4 mg PO DAILY@0700 03/01/17 Albuterol Sulfate Inhaler - [Ventolin HFA Inhaler -] 2 inh IH Q6H #1 inh Tadalafil [Cialis] 5 mg PO DAILY 05/04/17 Insulin Glargine,Hum.rec.anlog [[place] U-100] 30 unit SQ HS 07/09/17 Family Disease History - Family Disease History Family Disease History: Other: Father (dialysis) Review of Systems - Review of Systems Constitutional: reports: No Symptoms Eyes: reports: No Symptoms HENT: reports: No Symptoms Neck: reports: No Symptoms Cardiovascular: reports: Edema, Shortness of Breath Respiratory: reports: Cough, SOB, SOB on Exertion Gastrointestinal: reports: No Symptoms Genitourinary: reports: No Symptoms Musculoskeletal: reports: No Symptoms Integumentary: reports: No Symptoms Neurological: reports: No Symptoms Endocrine: reports: No Symptoms Hematology/Lymphatic: reports: No Symptoms Psychiatric: reports: No Symptoms Physical Exam Vital Signs: Vital Signs Temperature 98.6 F 07/10/17 10:00 Pulse Rate 98 H 07/10/17 10:00 Respiratory Rate 18 07/10/17 10:00 Blood Pressure 158/90 07/10/17 10:00 O2 Sat by Pulse Oximetry (%) 95 07/10/17 09:00 Constitutional: Yes: Calm Eyes: Yes: Conjunctiva Clear HENT: Yes: Atraumatic Cardiovascular: Yes: S1, S2 Respiratory: Yes: CTA Bilaterally Gastrointestinal: Yes: Normal Bowel Sounds, Soft Renal/: Yes: WNL Musculoskeletal: Yes: WNL Edema: Yes Edema: LLE: 1+, RLE: 1+ Neurological: Yes: Oriented Psychiatric: Yes: Oriented Labs: CBC, BMP 07/10/17 06:00 07/10/17 06:00 Laboratory Tests 07/09/17 07/09/17 07/09/17 09:30 09:30 12:50 WBC Hgb 12.3 Sodium Potassium Chloride Carbon Dioxide Anion Gap BUN Creatinine 0.8 Urine Protein 2+ H Urine Glucose (UA) 1+ H Urine Blood 1+ H 07/10/17 07/10/17 06:00 06:00 WBC 8.5 Hgb 12.8 Sodium 136 Potassium 4.3 Chloride 101 Carbon Dioxide 27 Anion Gap 8 BUN 21 H D Creatinine 0.9 Urine Protein Urine Glucose (UA) Urine Blood Imaging - Results Ultrasound: Report Reviewed Problem List - Problems (1) Acute exacerbation of chronic obstructive pulmonary disease (COPD) Code(s): J44.1 - CHRONIC OBSTRUCTIVE PULMONARY DISEASE W (ACUTE) EXACERBATION (2) Diabetes mellitus Code(s): E11.9 - TYPE 2 DIABETES MELLITUS WITHOUT COMPLICATIONS (3) Proteinuria Code(s): R80.9 - PROTEINURIA, UNSPECIFIED Assessment/Plan Current Medications Generic Name Dose Route Start Last Admin Trade Name Freq PRN Reason Stop Dose Admin Acetaminophen 650 mg 07/09/17 18:00 Tylenol - PO Q6H PRN FEVER OR PAIN Albuterol/Ipratropium 1 amp 07/09/17 18:00 07/10/17 10:41 Duoneb - NEB 1 amp Q6H PRN Administration SHORTNESS OF BREATH Aspirin 81 mg 07/10/17 10:00 07/10/17 09:29 Ecotrin - PO 81 mg DAILY KENYON Administration Atorvastatin Calcium 10 mg 07/09/17 22:00 07/09/17 21:14 Lipitor - PO 10 mg HS KENYON Administration Azithromycin 500 mg 07/09/17 18:00 07/10/17 09:31 Azithromycin PO 07/11/17 10:01 500 mg DAILY KENYON Administration Furosemide 40 mg 07/10/17 10:00 07/10/17 09:29 Lasix Injection - IVPB 40 mg DAILY KENYON Administration Glimepiride 4 mg 07/10/17 07:00 07/10/17 06:28 Amaryl - PO 4 mg DAILY@0700 KENYON Administration Ceftriaxone Sodium 1 gm/ 50 mls @ 100 mls/hr 07/09/17 18:00 07/10/17 09:29 Dextrose IVPB 100 mls/hr DAILY KENYON Administration Insulin Aspart 1 vial 07/09/17 22:00 07/10/17 12:17 Novolog Vial Sliding Scale - SQ 6 units ACHS KENYON Administration Protocol Insulin Aspart 25 units 07/10/17 16:30 Novolog Mix 70/30 Vial SQ BIDAC [facility]ON Lisinopril 10 mg 07/10/17 10:00 07/10/17 09:30 Prinivil PO 10 mg DAILY K[facility]YON Administration Methylprednisolone Sodium Succinate 40 mg 07/10/17 22:00 Solu-Medrol - IVPB BID K[facility]YON Metoprolol Succinate 25 mg 07/10/17 10:00 07/10/17 09:30 Toprol Xl - PO 25 mg DAILY [facility] Administration Oxybutynin Chloride 5 mg 07/09/17 22:00 07/10/17 09:29 Ditropan - PO 5 mg BID [facility] Administration Prasugrel 10 mg 07/10/17 10:00 07/10/17 09:31 Effient - PO 10 mg DAILY [facility] Administration Tamsulosin HCl 0.4 mg 07/10/17 08:30 07/10/17 09:30 Flomax - PO 0.4 mg DAILY@0830 [facility] Administration Tramadol HCl 50 mg 07/09/17 21:59 07/10/17 09:30 Ultram - PO 50 mg Q6H PRN Administration Impression 1. proteinuria 2. DM 3. HTN 4. COPD 5. high post void residual Plan - urology eval for elevated PVR, can increase flomax to 0.8 - will need ckd workup as outpt - check urine prt to organ assembler ration to quantify proteinuria - cont with lasix - renal ultrasound reviewed - cont with lisinopril Dr Munguia
--- NOTE | 2017-07-10 14:07 | CON.CARD ---
Consult Consult Specialty:: cardiology Referred by:: Jose Luis Reason for Consultation:: CHF, atrial fibrillation - History of Present Illness Chief Complaint: Shortness of breath or leg edema History of Present Illness: The patient is a 62-year-old man, with a history of hypertension, diabetes, paroxysmal atrial fibrillation, not on anticoagulation (?), Coronary artery disease and prior LAD stent, now presenting with shortness of breath and leg edema. The patient denies chest pains, and palpitations. The patient is back in atrial fibrillation. Cardiac catheterization 04/27/2017 showed a patent LAD stent, with nonobstructive disease of the RCA and circumflex arteries, a small radius intermedius with a 95% narrowing. No intervention was needed. 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: No: Alzheimer's, CVA, Dementia, Migraine, Multiple Sclerosis, Peripheral Neuropathy, Parkinson's, Seizure, Syncope, TIA, Vertigo, Other Cardio/Vascular: Yes: AFIB (paroxysmal), CAD, CHF, HTN, Hyperlipdemia Gastrointestinal: No: Ascites, Cancer, Constipation, Crohn's Disease, Diverticulitis, Diverticulosis, Esophageal Varices, Gastritis, GERD, GI Bleed, Hemorrhoids, Hiatal Hernia, Inflamatory Bowel Disease, Irritable Bowel Disease, Pancreatitis, Peptic Ulcer Disease, Ulcerative Colitis, Other Hepatobiliary: No: Cirrhosis, Cholelithiasis, Cholecystitis, Choledocholithiasis , Hepatitis A, Hepatitis B, Hepatitis C, Other Renal/: No: Renal Failure, Renal Inusuff, BPH, Cancer, Hematuria, Hemodialysis , Neurogenic Bladder, Renal Calculi, UTI, Other Heme/Onc: No: Anemia, B12 Deficiency, Bleeding Disorder, Cancer, Current Chemotherapy, Current Radiation Therapy, Hemochromatosis, Hypercoaguable State, Myeloproliferative Synd, Sickle Cell Disease, Sickle Cell Trait, Thrombocytopenia, Other Infectious Disease: No: AIDS, C-Diff, Herpes Zoster, HIV, MRSA, STD's, Tuberculosis, VREF, Other Psych: No: Addictions, Anxiety, Bipolar, Depression, Panic, Psychosis, Schizophrenia, Other Musculoskeletal: No: Bursitis, Chronic low back pain, Hemiparesis, Hemiplegia, Osteoarthritis, Paraplegia, Other Endocrine: Yes: Diabetes Mellitus - Alcohol/Substance Use Hx Alcohol Use: No - Smoking History Smoking history: Former smoker Have you smoked in the past 12 months: Yes Aproximately how many cigarettes per day: 4 If you are a former smoker, when did you quit?: 2 weeks Home Medications - Allergies Allergies/Adverse Reactions: Allergies Allergy/AdvReac Type Severity Reaction Status Date / Time No Known Allergies Allergy Verified 07/09/17 08:47 - Home Medications Home Medications: Ambulatory Orders Aspirin [ASA -] 81 mg PO DAILY 12/11/16 Insulin (Novolog 70/30) [Novolog Mix 70/30 Flexpen -] 0 units SQ DAILY 12/11/16 Lisinopril/Hydrochlorothiazide [Lisinopril-Hctz 20-25 mg Tab] 1 each PO DAILY Metoprolol Succinate [Toprol XL -] 25 mg PO DAILY 12/11/16 Oxybutynin Chloride [Oxybutynin Chloride ER] 10 mg PO DAILY 12/11/16 Prasugrel HCl [Effient] 10 mg PO DAILY 12/11/16 Simvastatin [Zocor -] 20 mg PO DAILY 12/11/16 Tamsulosin HCl [Flomax -] 0.4 mg PO DAILY 12/11/16 Glimepiride [Amaryl -] 4 mg PO DAILY@0700 03/01/17 Albuterol Sulfate Inhaler - [Ventolin HFA Inhaler -] 2 inh IH Q6H #1 inh Tadalafil [Cialis] 5 mg PO DAILY 05/04/17 Insulin Glargine,Hum.rec.anlog [Basaglar Kwikpen U-100] 30 unit SQ HS 07/09/17 Family Disease History - Family Disease History Family Disease History: Other: Father (dialysis) Review of Systems - Review of Systems Constitutional: reports: No Symptoms Eyes: reports: No Symptoms HENT: reports: No Symptoms Neck: reports: No Symptoms Cardiovascular: reports: Edema, Shortness of Breath Respiratory: reports: SOB Gastrointestinal: reports: No Symptoms Genitourinary: reports: No Symptoms Breasts: reports: No Symptoms Reported Musculoskeletal: reports: No Symptoms Integumentary: reports: No Symptoms Neurological: reports: No Symptoms Endocrine: reports: No Symptoms Hematology/Lymphatic: reports: No Symptoms Psychiatric: reports: No Symptoms Vital Signs: Vital Signs Temperature 98.9 F 07/10/17 13:44 Pulse Rate 72 07/10/17 13:44 Respiratory Rate 18 09/19/17 13:44 Blood Pressure 113/58 07/10/17 13:44 O2 Sat by Pulse Oximetry (%) 95 07/10/17 09:00 Constitutional: Yes: Well Nourished, No Distress, Calm Eyes: Yes: WNL HENT: Yes: WNL, Atraumatic, Normocephalic Neck: Yes: WNL, Supple Respiratory: Yes: WNL, Regular Gastrointestinal: Yes: WNL, Normal Bowel Sounds, Soft Renal/: Yes: WNL Cardiovascular: Yes: Pulse Irregular JVD: No Carotid Bruit: No PMI: Non-Displaced Heart Sounds: Yes: S1, S2 Murmur: Yes: Systolic Murmur, Grade 2 Musculoskeletal: Yes: WNL Edema: Yes Edema: LLE: 1+, RLE: 1+ Peripheral Pulses WNL: Yes Integumentary: Yes: WNL Neurological: Yes: WNL ...Motor Strength: WNL Psychiatric: Yes: WNL - Other Data Labs, Other Data: CBC, BMP 07/10/17 06:00 07/10/17 06:00 Troponin, BNP 07/09/17 15:24 Troponin I 0.20 H Troponin, BNP 07/09/17 15:24 Troponin I 0.20 H Assessment/Plan 62-year-old man with a history of diabetes, hypertension, hyperlipidemia, coronary artery disease and prior stent, paroxysmal atrial fibrillation, not on anticoagulation, now presenting with shortness of breath and mild acute on chronic diastolic heart failure, in atrial fibrillation. The patient reports no chest pains nor palpitations. Respiratory status and leg edema improved. Continue Lasix and metoprolol as currently. May increase lisinopril to 20 mg daily. The patient needs anticoagulation, in addition to Effient, for paroxysmal atrial fibrillation, unless contraindicated. There is no need for further cardiac workup at this point. The patient is comfortable and stable. Please do not hesitate to call us PRN.
--- NOTE | 2017-07-10 14:27 | PN ---
Progress Note, Physician Chief Complaint: AWAKE ALERT BREATHING BETTER ON 02 NC - Current Medication List Current Medications: Active Medications Acetaminophen (Tylenol -) 650 mg PO Q6H PRN PRN Reason: FEVER OR PAIN Albuterol/Ipratropium (Duoneb -) 1 amp NEB Q6H PRN PRN Reason: SHORTNESS OF BREATH Last Admin: 07/10/17 10:41 Dose: 1 amp Aspirin (Ecotrin -) 81 mg PO DAILY [facility] Last Admin: 07/10/17 09:29 Dose: 81 mg Atorvastatin Calcium (Lipitor -) 10 mg PO HS [facility] Last Admin: 07/09/17 21:14 Dose: 10 mg Azithromycin (Azithromycin) 500 mg PO DAILY [facility] Stop: 07/11/17 10:01 Last Admin: 07/10/17 09:31 Dose: 500 mg Furosemide (Lasix Injection -) 40 mg IVPB DAILY [facility] Last Admin: 07/10/17 09:29 Dose: 40 mg Glimepiride (Amaryl -) 4 mg PO DAILY@0700 [facility] Last Admin: 07/10/17 06:28 Dose: 4 mg Ceftriaxone Sodium 1 gm/ (Dextrose) 50 mls @ 100 mls/hr IVPB DAILY [facility] Last Admin: 07/10/17 09:29 Dose: 100 mls/hr Insulin Aspart (Novolog Vial Sliding Scale -) 1 vial SQ ACHS [facility] PRN Reason: Protocol Last Admin: 07/10/17 12:17 Dose: 6 units Insulin Aspart (Novolog Mix 70/30 Vial) 25 units SQ BIDAC [facility] Lisinopril (Prinivil) 10 mg PO DAILY [facility] Last Admin: 07/10/17 09:30 Dose: 10 mg Methylprednisolone Sodium Succinate (Solu-Medrol -) 40 mg IVPB BID [facility] Metoprolol Succinate (Toprol Xl -) 25 mg PO DAILY [facility] Last Admin: 07/10/17 09:30 Dose: 25 mg Oxybutynin Chloride (Ditropan -) 5 mg PO BID [facility] Last Admin: 07/10/17 09:29 Dose: 5 mg Prasugrel (Effient -) 10 mg PO DAILY [facility] Last Admin: 07/10/17 09:31 Dose: 10 mg Tamsulosin HCl (Flomax -) 0.8 mg PO DAILY@0830 [facility] Tramadol HCl (Ultram -) 50 mg PO Q6H PRN Last Admin: 07/10/17 09:30 Dose: 50 mg - Objective Vital Signs: Vital Signs Temperature 98.9 F 07/10/17 13:44 Pulse Rate 72 07/10/17 13:44 Respiratory Rate 18 07/10/17 13:44 Blood Pressure 113/58 07/10/17 13:44 O2 Sat by Pulse Oximetry (%) 95 07/10/17 09:00 Constitutional: Yes: Mild Distress Eyes: Yes: WNL HENT: Yes: WNL Neck: Yes: WNL Cardiovascular: Yes: WNL Respiratory: Yes: On Nasal O2, Rhonchi Gastrointestinal: Yes: WNL Genitourinary: Yes: WNL Musculoskeletal: Yes: WNL Extremities: Yes: WNL Edema: No Peripheral Pulses WNL: Yes Integumentary: Yes: WNL Wound/Incision: Yes: Clean/Dry Neurological: Yes: WNL ...Motor Strength: WNL Psychiatric: Yes: WNL Labs: CBC, BMP 07/10/17 06:00 07/10/17 06:00 Problem List - Problems (1) Elevated troponin Code(s): R74.8 - ABNORMAL LEVELS OF OTHER SERUM ENZYMES (2) Cough Code(s): R05 - COUGH (3) Dyspnea Code(s): R06.00 - DYSPNEA, UNSPECIFIED (4) H/O heart artery stent Code(s): Z95.5 - PRESENCE OF CORONARY ANGIOPLASTY IMPLANT AND GRAFT (5) Acute exacerbation of chronic obstructive pulmonary disease (COPD) Code(s): J44.1 - CHRONIC OBSTRUCTIVE PULMONARY DISEASE W (ACUTE) EXACERBATION (6) Proteinuria Code(s): R80.9 - PROTEINURIA, UNSPECIFIED Qualifiers: Isolated proteinuria type: with unspecified morphologic lesion (7) Hematuria Code(s): R31.9 - HEMATURIA, UNSPECIFIED Qualifiers: Hematuria type: unspecified type Qualified Code(s): R31.9 - Hematuria, unspecified Assessment/Plan RENAL SONO SHOWS CHRONIC KIDNEY DISEASE WITH PROTEINUREA/HEMATUREA ON NIC INHIBITOR STEROIDS BID IV WITH SSI AND BID 70/30 NOVOLOG OOB TO CHAIR PULM/CARDIO EVAL APPRECIATED CHANGE PO PREDNISONE AND DC PLANNING FOR TOMORROW
[2017-07-10] MEDS ORDERED: MAGNESIUM HYDROX 2400MG/30ML ORAL SUSPENSION 30 ML CUP PO PRN (14:37)
[2017-07-10] MEDS: POLYETHYLENE GLYCOL 3350 119 GM BTL PO SCH (15:26)
[2017-07-10 16:11] LABS: URINE CREATININE 20.4 mg/dL (20-370)
[2017-07-10] MEDS: INSULIN (NOVOLOG MIX 70/30) 100 UNITS/ML MDV SQ SCH (17:09)
[2017-07-10] MEDS ORDERED: SENNOSIDES 8.6MG TABLET (FP) PO SCH (22:00)
[2017-07-10] MEDS: ATORVASTATIN CA 10 MG TABLET (FP) PO SCH (22:46)
--- NOTE | 2017-07-11 | CONSULT ---
Consult Consult Specialty:: endocrine Referred by:: dr.rabadi cisse Reason for Consultation:: hyperglycmeia - History of Present Illness Chief Complaint: high sugar History of Present Illness: 62 y m diabetes mellitus,htn,hyperlipidemia,admitted with progressive dyspnea, cough,wheezing and chest heaviness,elevated blood sugars,denies nausea, vomiting fever or chill. 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: No: Alzheimer's, CVA, Dementia, Migraine, Multiple Sclerosis, Peripheral Neuropathy, Parkinson's, Seizure, Syncope, TIA, Vertigo, Other Cardio/Vascular: Yes: AFIB (paroxysmal), CAD, CHF, HTN, Hyperlipdemia Gastrointestinal: No: Ascites, Cancer, Constipation, Crohn's Disease, Diverticulitis, Diverticulosis, Esophageal Varices, Gastritis, GERD, GI Bleed, Hemorrhoids, Hiatal Hernia, Inflamatory Bowel Disease, Irritable Bowel Disease, Pancreatitis, Peptic Ulcer Disease, Ulcerative Colitis, Other Hepatobiliary: No: Cirrhosis, Cholelithiasis, Cholecystitis, Choledocholithiasis , Hepatitis A, Hepatitis B, Hepatitis C, Other Renal/: No: Renal Failure, Renal Inusuff, BPH, Cancer, Hematuria, Hemodialysis , Neurogenic Bladder, Renal Calculi, UTI, Other Infectious Disease: No: AIDS, C-Diff, Herpes Zoster, HIV, MRSA, STD's, Tuberculosis, VREF, Other Psych: No: Addictions, Anxiety, Bipolar, Depression, Panic, Psychosis, Schizophrenia, Other Musculoskeletal: No: Bursitis, Chronic low back pain, Hemiparesis, Hemiplegia, Osteoarthritis, Paraplegia, Other Endocrine: Yes: Diabetes Mellitus - Alcohol/Substance Use Hx Alcohol Use: No - Smoking History Smoking history: Former smoker Have you smoked in the past 12 months: Yes Aproximately how many cigarettes per day: 4 If you are a former smoker, when did you quit?: 2 weeks Home Medications - Allergies Allergies/Adverse Reactions: Allergies Allergy/AdvReac Type Severity Reaction Status Date / Time No Known Allergies Allergy Verified 07/09/17 08:47 - Home Medications Home Medications: Ambulatory Orders Aspirin [ASA -] 81 mg PO DAILY 12/11/16 Insulin (Novolog 70/30) [Novolog Mix 70/30 Flexpen -] 0 units SQ DAILY 12/11/16 Lisinopril/Hydrochlorothiazide [Lisinopril-Hctz 20-25 mg Tab] 1 each PO DAILY Metoprolol Succinate [Toprol XL -] 25 mg PO DAILY 12/11/16 Oxybutynin Chloride [Oxybutynin Chloride ER] 10 mg PO DAILY 12/11/16 Prasugrel HCl [Effient] 10 mg PO DAILY 12/11/16 Simvastatin [Zocor -] 20 mg PO DAILY 12/11/16 Tamsulosin HCl [Flomax -] 0.4 mg PO DAILY 12/11/16 Glimepiride [Amaryl -] 4 mg PO DAILY@0700 03/01/17 Albuterol Sulfate Inhaler - [Ventolin HFA Inhaler -] 2 inh IH Q6H #1 inh Tadalafil [Cialis] 5 mg PO DAILY 05/04/17 Insulin Glargine,Hum.rec.anlog [Basaglar Kwikpen U-100] 30 unit SQ HS 07/09/17 Family Disease History - Family Disease History Family Disease History: Other: Father (dialysis) Review of Systems - Review of Systems Constitutional: reports: Lethargy, Weakness Eyes: reports: No Symptoms HENT: reports: No Symptoms Neck: reports: No Symptoms Cardiovascular: reports: Shortness of Breath Respiratory: reports: Exercise Intolerance, SOB, SOB on Exertion Gastrointestinal: reports: Constipation Genitourinary: reports: No Symptoms Breasts: reports: No Symptoms Reported Musculoskeletal: reports: No Symptoms Integumentary: reports: Incision Neurological: reports: No Symptoms Endocrine: reports: Unexplained Weight Gain Hematology/Lymphatic: reports: No Symptoms Psychiatric: reports: No Symptoms Physical Exam Vital Signs: Vital Signs Temperature 98.6 F 07/10/17 22:00 Pulse Rate 74 07/10/17 22:00 Respiratory Rate 18 07/10/17 22:00 Blood Pressure 152/64 07/10/17 22:00 O2 Sat by Pulse Oximetry (%) 100 07/10/17 22:00 Constitutional: Yes: Anxious Eyes: Yes: EOM Intact HENT: Yes: Normocephalic Neck: Yes: Trachea Midline Cardiovascular: Yes: Tachycardia Respiratory: Yes: Cough, Rhonchi, Tachypnea, Wheezes Gastrointestinal: Yes: Normal Bowel Sounds ...Rectal Exam: Yes: Deferred Renal/: Yes: WNL Breast(s): Yes: WNL Musculoskeletal: Yes: WNL Extremities: Yes: WNL Neurological: Yes: Alert, Oriented ...Motor Strength: WNL Psychiatric: Yes: WNL, Alert Labs: CBC, BMP 07/10/17 06:00 07/10/17 06:00 Problem List - Problems (1) Acute exacerbation of chronic obstructive pulmonary disease (COPD) Code(s): J44.1 - CHRONIC OBSTRUCTIVE PULMONARY DISEASE W (ACUTE) EXACERBATION (2) Diabetes mellitus Code(s): E11.9 - TYPE 2 DIABETES MELLITUS WITHOUT COMPLICATIONS (3) Elevated troponin Code(s): R74.8 - ABNORMAL LEVELS OF OTHER SERUM ENZYMES (4) Cough Code(s): R05 - COUGH (5) Dyspnea Code(s): R06.00 - DYSPNEA, UNSPECIFIED Assessment/Plan Current Active Problems Acute exacerbation of chronic obstructive pulmonary disease (COPD) (Acute) Diabetes mellitus (Acute) Elevated troponin (Acute) Hematuria (Acute) Proteinuria (Acute) diabetic neuropathy hyperglycemia,insulin resistant Abnormal Lab Results 07/09/17 07/10/17 07/10/17 19:10 06:00 15:15 BUN 21 H D Random Glucose 371 H* D Hemoglobin A1c % 10.0 H D Total Bilirubin 4.1 H D Total Protein 6.2 L Albumin 3.2 L U Random Total Protein 88 H Laboratory Results - last 24 hr 07/09/17 07/10/17 07/10/17 19:10 06:00 06:00 WBC 8.5 RBC 4.89 Hgb 12.8 Hct 39.5 MCV 80.7 MCH 26.3 MCHC 32.6 RDW 14.1 Plt Count 207 MPV 10.4 D Sodium 136 Potassium 4.3 Chloride 101 Carbon Dioxide 27 Anion Gap 8 BUN 21 H D Creatinine 0.9 Creat Clearance w eGFR > 60 POC Glucometer Random Glucose 371 H* D Hemoglobin A1c % 10.0 H D Calcium 9.0 Total Bilirubin 4.1 H D AST 21 ALT 43 Alkaline Phosphatase 77 Total Protein 6.2 L Albumin 3.2 L Triglycerides 75 D Cholesterol 95 D Total LDL Cholesterol 48 D HDL Cholesterol 44 U Random Total Protein Urine Creatinine 07/10/17 07/10/17 07/10/17 06:20 12:11 15:15 WBC RBC Hgb Hct MCV MCH MCHC RDW Plt Count MPV Sodium Potassium Chloride Carbon Dioxide Anion Gap BUN Creatinine Creat Clearance w eGFR POC Glucometer 372 309 Random Glucose Hemoglobin A1c % Calcium Total Bilirubin AST ALT Alkaline Phosphatase Total Protein Albumin Triglycerides Cholesterol Total LDL Cholesterol HDL Cholesterol U Random Total Protein 88 H Urine Creatinine 20.4 07/10/17 07/10/17 16:38 22:44 WBC RBC Hgb Hct MCV MCH MCHC RDW Plt Count MPV Sodium Potassium Chloride Carbon Dioxide Anion Gap BUN Creatinine Creat Clearance w eGFR POC Glucometer 382 188 Random Glucose Hemoglobin A1c % Calcium Total Bilirubin AST ALT Alkaline Phosphatase Total Protein Albumin Triglycerides Cholesterol Total LDL Cholesterol HDL Cholesterol U Random Total Protein Urine Creatinine plan: bgm qid novolog scale novolog 70/30 bid dosing Current Medications Generic Name Dose Route Start Last Admin Trade Name Freq PRN Reason Stop Dose Admin Acetaminophen 650 mg 07/09/17 18:00 Tylenol - PO Q6H PRN FEVER OR PAIN Albuterol/Ipratropium 1 amp 07/09/17 18:00 07/10/17 10:41 Duoneb - NEB 1 amp Q6H PRN Administration SHORTNESS OF BREATH Aspirin 81 mg 07/10/17 10:00 07/10/17 09:29 Ecotrin - PO 81 mg DAILY KENYON Administration Atorvastatin Calcium 10 mg 07/09/17 22:00 07/10/17 22:46 Lipitor - PO 10 mg HS KENYON Administration Azithromycin 500 mg 07/09/17 18:00 07/10/17 09:31 Azithromycin PO 07/11/17 10:01 500 mg DAILY KENYON Administration Furosemide 40 mg 07/10/17 10:00 07/10/17 09:29 Lasix Injection - IVPB 40 mg DAILY KENYON Administration Glimepiride 4 mg 07/10/17 07:00 07/10/17 06:28 Amaryl - PO 4 mg DAILY@0700 KENYON Administration Ceftriaxone Sodium 1 gm/ 50 mls @ 100 mls/hr 07/09/17 18:00 07/10/17 09:29 Dextrose IVPB 100 mls/hr DAILY KENYON Administration Insulin Aspart 25 units 07/10/17 16:30 07/10/17 17:09 Novolog Mix 70/30 Vial SQ 25 units BIDAC KENYON Administration Insulin Aspart 1 vial 07/10/17 23:53 Novolog Vial Sliding Scale - SQ ACHS KENYON Protocol Lisinopril 10 mg 07/10/17 10:00 07/10/17 09:30 Prinivil PO 10 mg DAILY KENYON Administration Magnesium Hydroxide 30 ml 07/10/17 14:37 07/10/17 18:48 Milk Of Magnesia - PO 30 ml Q8H PRN Administration INDIGESTION Methylprednisolone Sodium Succinate 40 mg 07/10/17 22:00 07/10/17 22:47 Solu-Medrol - IVPB 40 mg BID KENYON Administration Metoprolol Succinate 25 mg 07/10/17 10:00 07/10/17 09:30 Toprol Xl - PO 25 mg DAILY KENYON Administration Oxybutynin Chloride 5 mg 07/09/17 22:00 07/10/17 22:46 Ditropan - PO 5 mg BID KENYON Administration Polyethylene Glycol 17 gm 07/10/17 14:45 07/10/17 15:26 Miralax (For Daily Use) - PO 17 gm DAILY KENYON Administration Prasugrel 10 mg 07/10/17 10:00 07/10/17 09:31 Effient - PO 10 mg DAILY KENYON Administration Senna 1 tab 07/10/17 22:00 07/10/17 22:47 Senna - PO 1 tab HS KENYON Administration Tamsulosin HCl 0.8 mg 07/11/17 08:30 Flomax - PO DAILY@0830 KENYON Tramadol HCl 50 mg 07/09/17 21:59 07/10/17 18:48 Ultram - PO 50 mg Q6H PRN Administration ck [id number]
[2017-07-11] MEDS: traMADol HCL 50 MG TABLET PO PRN (01:03)
[2017-07-11] MEDS: INSULIN SLIDING SCALE (NOVOLOG) 1 VIAL SQ SCH ×2 (06:54→11:36)
[2017-07-11] MEDS: GLIMEPIRIDE 4 MG TABLET (FP) PO SCH (06:54)
[2017-07-11] MEDS: INSULIN (NOVOLOG MIX 70/30) 100 UNITS/ML MDV SQ SCH (06:54)
[2017-07-11] MEDS ORDERED: TAMSULOSIN HCL 0.4 MG CAP.ER.24H (FP) PO SCH (08:30)
[2017-07-11] MEDS ORDERED: predniSONE 20 MG TABLET (UD) PO SCH (10:00)
[2017-07-11] MEDS ORDERED: DEXTROSE 5%-WATER - 50 ML IVPB ONE (10:03)
[2017-07-11] MEDS ORDERED: cefTRIAXone SODIUM 1 GM VIAL ONE (10:03)
[2017-07-11] MEDS: FUROSEMIDE 40 MG/4 ML INJECTABLE VIAL IVPB SCH (10:08)
[2017-07-11] MEDS: ASPIRIN COATED 81 MG TABLET.EC PO SCH (10:08)
[2017-07-11] MEDS: OXYBUTYNIN CHLORIDE 5 MG TABLET PO SCH (10:08)
[2017-07-11] MEDS: METOPROLOL SUCCINATE 25 MG TAB.SR.24H (FP) PO SCH (10:08)
[2017-07-11] MEDS: LISINOPRIL 10 MG TABLET (FP) PO SCH (10:08)
[2017-07-11] MEDS: POLYETHYLENE GLYCOL 3350 119 GM BTL PO SCH (10:09)
[2017-07-11] MEDS: CEFTRIAXONE 1 GM in DEXTROSE 5%-WATER - 50 ML IVPB SCH (10:09)
[2017-07-11] MEDS: PRASUGREL HCL 10 MG TAB PO SCH (10:11)
--- NOTE | 2017-07-11 10:44 | DS ---
Physical Examination Vital Signs: Vital Signs Temperature 98 F 07/11/17 06:00 Pulse Rate 104 H 07/11/17 06:00 Respiratory Rate 18 07/11/17 06:00 Blood Pressure 158/97 07/11/17 06:00 O2 Sat by Pulse Oximetry (%) 100 07/10/17 22:00 Constitutional: Yes: No Distress Eyes: Yes: WNL HENT: Yes: WNL Neck: Yes: WNL Cardiovascular: Yes: WNL Respiratory: Yes: WNL Gastrointestinal: Yes: WNL Renal/: Yes: WNL Musculoskeletal: Yes: WNL Extremities: Yes: WNL Edema: No Peripheral Pulses WNL: Yes Integumentary: Yes: WNL Wound/Incision: Yes: Clean/Dry Neurological: Yes: WNL ...Motor Strength: WNL Psychiatric: Yes: WNL Labs: CBC, BMP 07/10/17 06:00 07/10/17 06:00 Discharge Summary Reason For Visit: SOB; ELEVATED TROPONIN LEVEL Current Active Problems Acute exacerbation of chronic obstructive pulmonary disease (COPD) (Acute) Diabetes mellitus (Acute) Elevated troponin (Acute) Hematuria (Acute) Proteinuria (Acute) Procedures: Principal: CHEST XRAY Other Procedures: SONO RENAL AND BLADDER Hospital Course: ADMITTED FOR ACUTE ASTHMA/COPD EXACERBATION AND PROTEINUREA/HEMATUREA WORKERD UP IV STEROIDS, IV ABX, BERNA CAN CONTINUE AZITHROMYCIN FOR 3 DAYS, AND PREDNISONE FOR 6 DAYS TAPER 20MG DAILY FOR 3 DAYS THEN 10MG DAILY FOR 3 DAYS Condition: Stable - Instructions Diet, Activity, Other Instructions: PREDNISONE 20MG DAILY FOR 3 DAYS THEN 1/2 TABLET FOR 3 DAYS THEN STOP DIABETIC LOW SODIUM Referrals: Harinder Hardy MD [Primary Care Provider] - Disposition: [facility] - Home Medications Comprehensive Discharge Medication List: Ambulatory Orders Albuterol Sulfate Inhaler - [Ventolin HFA Inhaler -] 2 inh IH Q6H #1 inh Insulin Glargine,Hum.rec.anlog [Basaglar Kwikpen U-100] 30 unit SQ HS 07/09/17 Acetaminophen [Tylenol .Regular Strength -] 650 mg PO Q6H PRN #0 tablet Albuterol 2.5/Ipratropium 0.5 [Duoneb -] 1 amp NEB Q6H PRN #0 amp 07/11/17 Aspirin Coated [Ecotrin -] 81 mg PO DAILY tab 07/11/17 Aspirin [ASA -] 81 mg PO DAILY #0 tab 07/11/17 Azithromycin 250 mg PO DAILY #3 tablet 07/11/17 Azithromycin 250 mg PO DAILY 3 Days 07/11/17 Glimepiride [Amaryl -] 4 mg PO DAILY@0700 tablet 07/11/17 Glimepiride [Amaryl -] 4 mg PO DAILY@0700 #0 tab 07/11/17 Insulin (Novolog 70/30) [Novolog Mix 70/30 Vial -] 25 units SQ BIDAC vial 07/11 Insulin Sliding Scale [Novolog Vial Sliding Scale -] 1 vial SQ ACHS units 07/11 Lisinopril/Hydrochlorothiazide [Lisinopril-Hctz 20-25 mg Tab] 1 each PO DAILY # 0 tab 07/11/17 Magnesium Hydrox 2400MG/30Ml [Milk of Magnesia -] 30 ml PO Q8H PRN #360 bottle 07/11/17 Metoprolol Succinate [Toprol XL -] 25 mg PO DAILY #0 tab 07/11/17 Oxybutynin Chloride [Oxybutynin Chloride ER] 10 mg PO DAILY #0 tab 07/11/17 Polyethylene Glycol 3350 [Miralax 119 gm Btl -] 17 gm PO DAILY #1 bottle Prasugrel HCl [Effient] 10 mg PO DAILY #0 tab 07/11/17 Prasugrel Hydrochloride [Effient -] 10 mg PO DAILY tab 07/11/17 Prednisone [Deltasone -] 20 mg PO DAILY #6 tablet 07/11/17 Sennosides [Senna -] 1 tab PO HS #30 tablet 07/11/17 Simvastatin [Zocor -] 20 mg PO DAILY #0 tab 07/11/17 Tadalafil [Cialis] 5 mg PO DAILY #0 tab 07/11/17 Tamsulosin HCl [Flomax -] 0.8 mg PO DAILY #0 tab 07/11/17 Tamsulosin HCl [Flomax -] 0.8 mg PO DAILY@0830 tab 07/11/17 Tramadol HCl [Ultram -] 50 mg PO Q6H PRN #0 tablet MDD 3 07/11/17
[2017-07-11 11:13] VITALS: BP 147/81; PULSE 89; TEMP 98.6
[2017-07-11] MEDS: AZITHROMYCIN 500 MG TABLET PO SCH (11:23)
== END 2017-07-11 11:42 | disposition home or self-care (01) ==
LOC: JER 08:41 → JERBED 14:49 → J4S 16:44
PROVIDERS: ADMIT Family Medicine; ATTEND Family Medicine
PROC: 3E033GC Introduction of Other Therapeutic Substance into Peripheral Vein, Percutaneous Approach (ICD-10-PCS; principal; 2017-07-09)
PROC: 3E013VG Introduction of Insulin into Subcutaneous Tissue, Percutaneous Approach (ICD-10-PCS; 2017-07-09)
PROC: 3E0F7GC Introduction of Other Therapeutic Substance into Respiratory Tract, Via Natural or Artificial Opening (ICD-10-PCS; 2017-07-09)
DX: R77.8 Other specified abnormalities of plasma proteins (principal); J44.1 Chronic obstructive pulmonary disease with (acute) exacerbation; I48.0 Paroxysmal atrial fibrillation; I10 Essential (primary) hypertension; I50.9 Heart failure, unspecified; E78.5 Hyperlipidemia, unspecified; E11.9 Type 2 diabetes mellitus without complications; F03.90 Unspecified dementia, unspecified severity, without behavioral disturbance, psychotic disturbance, mood disturbance, and anxiety; E80.6 Other disorders of bilirubin metabolism; R80.9 Proteinuria, unspecified; R31.9 Hematuria, unspecified; R05 Cough; R06.00 Dyspnea, unspecified; Z79.82 Long term (current) use of aspirin; Z79.4 Long term (current) use of insulin; Z95.5 Presence of coronary angioplasty implant and graft; Z87.891 Personal history of nicotine dependence
CPT/HCPCS: 36415; 71020-TC; 76775-TC; 76856-TC; 80053; 80061; 81003; 81015; 82553; 82570; 83036; 83721; 83735; 83880; 84100; 84156; 84484; 85025; 85027; 87086; 93005; 93010; 94640; 99285-25; G0378

== ENCOUNTER 2017-10-26 12:20 | Inpatient (IN) | payer OTHER ==
--- NOTE | 2017-10-26 14:01 | PDOC ---
History of Present Illness - History of Present Illness Initial Comments: 10/26/17 16:13 The patient is a 62 year old male, with a significant past medical history of a- fib, hypertension, hyperlipidemia, COPD and diabetes mellitus, who presents to the emergency department with, productive cough and congestion for approx. 2-3 days and progressively worsening shortness of breath. The patent reports he was diagnosed with COPD in April of 2017 and states he can walk approx. 10 steps before feeling short of breath. He states in the past couple of days he can only walk 3-4 steps now before feeling short of breath. The patient reports associated symptoms of chest tightness when coughing and palpitations. He denies chest pain. The patient reports leg swelling beginning approx. 4 months ago with slight increase in the past couple days. Patient reports he is compliant with his Xarelto medication. He denies any recent fevers, chills, headache or dizziness. He denies any recent nausea, vomit, diarrhea or constipation. Allergies: NKA Primary Care Physician: Dr. Hardy <Allan Garcia - Last Filed: 10/26/17 18:56> - General History Source: Patient Exam Limitations: No Limitations <Que Loza - Last Filed: 10/26/17 19:39> - General Chief Complaint: Shortness of Breath Stated Complaint: SOB Time Seen by Provider: 10/26/17 13:20 Past History <Allan Garcia - Last Filed: 10/26/17 18:56> - Past Medical History Anemia: No Asthma: No Cancer: No Cardiac Disorders: Yes (A-fib) CVA: No COPD: Yes CHF: No Dementia: Yes (TYPE 2) Diabetes: Yes (niddm) GI Disorders: No Disorders: Yes (urinary retention) HTN: Yes Hypercholesterolemia: Yes Liver Disease: Yes (CHI JOHN SYNDROME) Seizures: No Thyroid Disease: No - Surgical History Abdominal Surgery: Yes (Hernia repair x2) Appendectomy: No Cardiac Surgery: Yes (1 STENT) Cholecystectomy: Yes Lung Surgery: No Neurologic Surgery: No Orthopedic Surgery: No - Immunization History Immunization Up to Date: Yes - Suicide/Smoking/Psychosocial Hx Smoking History: Former smoker Have you smoked in the past 12 months: Yes Number of Cigarettes Smoked Daily: 4 If you are a former smoker, when did you quit?: 04/2017 Information on smoking cessation initiated: Yes 'Breaking Loose' booklet given: 10/26/17 Hx Alcohol Use: No Drug/Substance Use Hx: No Substance Use Type: None Hx Substance Use Treatment: No <Que Loza - Last Filed: 10/26/17 19:39> - Past Medical History Allergies/Adverse Reactions: Allergies Allergy/AdvReac Type Severity Reaction Status Date / Time No Known Allergies Allergy Verified 10/26/17 12:21 Home Medications: Ambulatory Orders Insulin Glargine,Hum.rec.anlog [Basaglar Kwikpen U-100] 30 unit SQ HS 07/09/17 Aspirin [ASA -] 81 mg PO DAILY #0 tab 07/11/17 Glimepiride [Amaryl -] 4 mg PO DAILY@0700 #0 tab 07/11/17 Simvastatin [Zocor -] 20 mg PO DAILY #0 tab 07/11/17 Furosemide [Lasix] 40 mg PO BID 10/26/17 Gabapentin 300 mg PO DAILY 10/26/17 Insulin (Novolog 70/30) [Novolog Mix 70/30 Vial -] 10 units SQ BIDAC 10/26/17 Metoprolol Succinate [Toprol XL -] 100 mg PO DAILY 10/26/17 Rivaroxaban [Xarelto -] 20 mg PO DAILY 10/26/17 Sacubitril/Valsartan [Entresto 24 mg-26 mg Tablet] 1 each PO BID 10/26/17 Tamsulosin HCl [Flomax -] 0.4 mg PO DAILY 10/26/17 Respiratory Specific PMHX - Complaint Specific PMHX Bronchitis: Yes Pneumonia: Yes <Que Loza - Last Filed: 10/26/17 19:39> Review of Systems - Review of Systems Comments:: 10/26/17 16:13 Constitutional - Pt denies Fever, Chills, weakness, HEENT: +Congestion. denies vision changes, sore throat Respiratory: +Cough. +Shortness of breath. No hemoptysis Cardiac: denies chest pain, light headedness, Abd/GI: denies abd pain, nausea, vomiting, blood per rectum, melena, diarrhea : denies dysuria, frequency, discharge Musculskelatal: denies back pain, joint swelling skin - denies bruising, erythema, rash neurological: denies headache, numbness, focal weakness, tingling, ataxia, weakness hematologic: denies anemia, easy bruising, easy bleeding <Allan Garcia - Last Filed: 10/26/17 18:56> *Physical Exam - Vital Signs Last Vital Signs Temp Pulse Resp BP Pulse Ox 98.0 F 102 H 22 142/89 98 10/26/17 12:22 10/26/17 14:18 10/26/17 14:18 10/26/17 14:18 10/26/17 14:18 - Physical Exam Comments: 10/26/17 16:13 GENERAL: The patient is awake, alert, and fully oriented, Nontoxic - in no acute distress. HEAD: Normocephalic, atraumatic. EYES: extraocular movements intact, sclera anicteric, conjunctiva clear. ENT: Normal voice, Moist mucous membranes. NECK: Normal range of motion, supple without lymphadenopathy, JVD, or masses. LUNGS: Breath sounds equal, clear to auscultation bilaterally. No wheezes, no crackles, no rales. HEART: Regular rate and rhythm, normal S1 and S2 without murmur, rub or gallop. ABDOMEN: Soft, nontender, normoactive bowel sounds. No guarding, no rebound. No masses. EXTREMITIES: +Bilateral pedal edema no calf tenderness. Normal range of motion. NEUROLOGICAL: No facial assymetry, Normal speech, normal gait. PSYCH: Normal mood, normal affect. SKIN: Warm, Dry, normal turgor, no rashes or lesions noted. <Allan Garcia - Last Filed: 10/26/17 18:56> - Vital Signs Last Vital Signs Temp Pulse Resp BP Pulse Ox 98.0 F 101 H 18 164/104 98 10/26/17 12:22 10/26/17 12:22 10/26/17 12:22 10/26/17 12:22 10/26/17 13:33 <Que Loza - Last Filed: 10/26/17 19:39> Heart Score/ECG Review - ECG Impressions Comment:: 10/26/17 14:48 Twelve-lead EKG was performed and reviewed by me. Irregularly irregular Rate of 104 Nonspecific T wave abnormality Impression a flutter with variable AV block <Que oLza - Last Filed: 10/26/17 19:39> ED Treatment Course - LABORATORY CBC & Chemistry Diagram: 10/26/17 14:00 10/26/17 14:00 - ADDITIONAL ORDERS Additional order review: Laboratory Results 10/26/17 10/26/17 14:06 14:00 Sodium 141 Potassium 4.2 Chloride 102 Carbon Dioxide 30 Anion Gap 9 BUN 23 H Creatinine 0.8 Creat Clearance w eGFR > 60 POC Glucometer 118.95068 Random Glucose 102 D Calcium 8.5 Total Bilirubin 4.5 H AST 34 D ALT 46 Alkaline Phosphatase 194 H D B-Natriuretic Peptide 9039.23 H Total Protein 6.4 Albumin 2.7 L 10/26/17 10/26/17 14:06 14:00 RBC 4.69 MCV 77.4 L MCHC 31.5 L RDW 18.2 H D MPV 9.1 D Neutrophils % 74.1 Lymphocytes % 12.8 D Monocytes % 8.6 Eosinophils % 1.5 Basophils % 3.0 H D POC Glucometer 118.68659 - RADIOLOGY Radiograph Interpretation: 10/26/17 15:46 EXAM#: TYPE/EXAM: RESULT: [id number] RAD/CHEST X-RAY PORTABLE* EXAM: Chest x-ray - single AP portable view INDICATION: Shortness of breath. COMPARISON: 07/09/2017 chest x-ray. FINDINGS: New opacity in the right lower lobe. Calcified granulomas in the right midlung and right lung base are unchanged. Stable enlargement of the cardiac silhouette. There is no significant pulmonary vascular congestion or pleural effusion. There is no definable pneumothorax. IMPRESSION: Consolidative opacity in the right lower lobe is compatible with pneumonia in the proper clinical setting. Follow-up 2 view chest x-ray is recommended after completion of therapy to exclude other processes. Reported By: Elif England DO <Allan Garcia - Last Filed: 10/26/17 18:56> - LABORATORY CBC & Chemistry Diagram: 10/26/17 14:00 10/26/17 14:00 - RADIOLOGY Radiology Studies Ordered: Category Date Time Status CHEST X-RAY PORTABLE* [RAD] Stat Radiology 10/26/17 14:00 Ordered <Que Loza - Last Filed: 10/26/17 19:39> Medical Decision Making - Medical Decision Making 10/26/17 18:[address] Hardy at 6:13 pm. Pending call back. Second page sent to Dr. Hardy at 6:35 pm. Page returned at 6:55 pm. <Allan Garcia - Last Filed: 10/26/17 18:56> - Medical Decision Making 10/26/17 14:37 62y M hx of afib on xeralto, copd, dm, HTN, HL, chi john syndrome presents with complaint of sob, cough x 3 days, no associated fever/chills, pt does endorse some tightness with his cough. no increased leg swelling, hemoptysis, pleuritic cp. pts exam unremarkable beside irregular HR Differential for the patient's shortness of breath includes COPD, CHF, viral syndrome, pneumonia Will obtain blood work including a BNP, will check a chest x-ray The patient's vital signs unremarkable Will reassess A portion of this note was documented by scribe services under my direction. I have reviewed the details of the note, within reason, and agree with the documentation with the following case summary and management plan written by me 10/26/17 16:09 labs reviewed cxr noted for consolidated process will treat with azithromycin will ambulate the pt and check his sats - if hypoxic will admit for further management 10/26/17 18:02 pts stil feels very sob after ambulating. HR increases to 120s after ambuating. will give nebs labs noted for +bnp suspect chf/copd exacerbation will give some lasix will dw dr. hardy regarding admission for further management 10/26/17 19:[address] hardy - requests admission under dr. belle - who admits to hospitalists dw [employer] Lyndsay Ball. agree with management and accpeted under dr. Rider service. stable for med/surg <Que Loza - Last Filed: 10/26/17 19:39> *DC/Admit/Observation/Transfer - Attestations Scribe Attestion: 10/26/17 15:47 Documentation prepared by Allan Garcia, acting as medical insurance coder for Que Loza MD. <Allan Garcia - Last Filed: 10/26/17 18:56> - Discharge Dispostion Admit: Yes <Que Loza - Last Filed: 10/26/17 19:39> Diagnosis at time of Disposition: COPD (chronic obstructive pulmonary disease) Qualifiers: COPD type: unspecified COPD Qualified Code(s): J44.9 - Chronic obstructive pulmonary disease, unspecified CHF (congestive heart failure) Qualifiers: Congestive heart failure type: unspecified congestive heart failure type Congestive heart failure chronicity: acute on chronic Qualified Code(s): I50.9 - Heart failure, unspecified Atrial fibrillation Qualifiers: Atrial fibrillation type: chronic Qualified Code(s): I48.2 - Chronic atrial fibrillation - Discharge Dispostion Condition at time of disposition: Guarded - Referrals Referrals: Harinder Hardy MD [Primary Care Provider] -
[2017-10-26 14:14] LABS: EOS % 1.5 % (0-4.5); HEMATOCRIT 36.2 % (35.4-49); HEMOGLOBIN 11.4 GM/dL (11.7-16.9); LYMPH % 12.8 % (8-40); MCH 24.3 pg (25.7-33.7); MCHC 31.5 g/dl (32.0-35.9); MEAN CELL VOLUME 77.4 fl (80-96); MEAN PLT VOLUME 9.1 fl (7.5-11.1); MONO % 8.6 % (3.8-10.2); NEUT % 74.1 % (42.8-82.8); PLATELET COUNT 364 K/MM3 (134-434); RBC 4.69 M/mm3 (4.00-5.60); RDW 18.2 % (11.9-15.9); WHITE BLOOD COUNT 10.5 K/mm3 (4.0-10.0)
[2017-10-26 14:37] LABS: ALBUMIN 2.7 g/dl (3.4-5.0); ANION GAP 9 (8-16); BILIRUBIN,TOTAL 4.5 mg/dL (0.2-1.0); BLOOD UREA NITROGEN 23 mg/dL (7-18); CALCIUM 8.5 mg/dL (8.5-10.1); CHLORIDE 102 mmol/L (98-107); CO2 30 mmol/L (21-32); CREATININE 0.8 mg/dL (0.7-1.3); GLUCOSE,RANDOM 102 mg/dL (74-106); POTASSIUM 4.2 mmol/L (3.5-5.1); SGOT/AST 34 U/L (15-37); SGPT/ALT 46 U/L (12-78); SODIUM 141 mmol/L (136-145); TOT PROT 6.4 g/dl (6.4-8.2)
[2017-10-26 14:40] LABS: ALK PHOS 194 U/L (45-117); N-TERMINAL BNP 9039.23 pg/ml (5-125)
[2017-10-26] MEDS ORDERED: AZITHROMYCIN IVPB 500 MG in DEXTROSE 5%-WATER - 250 ML IVPB ONE (16:15)
[2017-10-26] MEDS ORDERED: AZITHROMYCIN IVPB 250 ML IVPB ONE (16:43)
[2017-10-26] MEDS ORDERED: FUROSEMIDE 40 MG/4 ML INJECTABLE VIAL IVPUSH ONE (18:01)
[2017-10-26] MEDS ORDERED: ALBUTEROL SO4 2.5/IPRATROPIUM 0.5 INH SOL 3 ML VIAL.NEB. NEB ONE ×2 (18:02→18:29)
[2017-10-26] MEDS ORDERED: FUROSEMIDE 40 MG/4 ML INJECTABLE VIAL ONE (18:26)
[2017-10-26] MEDS ORDERED: traMADol HCL 50 MG TABLET PO ONE (18:40)
[2017-10-26] MEDS ORDERED: traMADol HCL 50 MG TABLET ONE (18:49)
[2017-10-26] MEDS ORDERED: methylPREDNISolone NA SUCC 125 MG/2 ML VIAL IVPUSH ONE (18:56)
[2017-10-26] MEDS ORDERED: methylPREDNISolone NA SUCC 125 MG/2 ML VIAL ONE (19:07)
--- NOTE | 2017-10-26 20:13 | HP ---
Admitting History and Physical - Primary Care Physician PCP: Aisha Amaya - Admission Chief Complaint: SOB, Productive Cough History of Present Illness: This is a 62 y/o man with a significant past medical history of Afib (on Eliquis ), COPD, HTN, HLD, DM. Who presents to the ED with SOB, PICKETT, Orthopnea, and a productive cough x 2-3 days. Patient reports having increased SOB, worse after taking 5 steps. Patient reports having chest tightness after coughing. He reports having increased b/l leg swelling x 4 months worse over the last few days. Patient denies fever, dizziness, RUIZ, CP, AP, N/V/D, constipation, dysuria. History Source: Patient, Medical Record Limitations to Obtaining History: No Limitations - Past Medical History Cardiovascular: Yes: AFIB (paroxysmal), CAD, CHF, HTN, Hyperlipdemia Endocrine: Yes: Diabetes Mellitus - Past Surgical History Past Surgical History: Yes: Cholecystectomy, Hernia Repair (x2), Stent Additional Past Surgical History: Cardiac Ablation - Smoking History Smoking history: Former smoker Have you smoked in the past 12 months: Yes Aproximately how many cigarettes per day: 4 If you are a former smoker, when did you quit?: 04/2017 - Alcohol/Substance Use Hx Alcohol Use: No History of Substance Use: reports: None - Social History Usual Living Arrangement: Yes: With Spouse ADL: Independent 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, 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 History of Recent Travel: No Home Medications - Allergies Allergies/Adverse Reactions: Allergies Allergy/AdvReac Type Severity Reaction Status Date / Time No Known Allergies Allergy Verified 10/26/17 12:21 - Home Medications Home Medications: Ambulatory Orders Insulin Glargine,Hum.rec.anlog [Basaglar Kwikpen U-100] 30 unit SQ HS 07/09/17 Aspirin [ASA -] 81 mg PO DAILY #0 tab 07/11/17 Glimepiride [Amaryl -] 4 mg PO DAILY@0700 #0 tab 07/11/17 Simvastatin [Zocor -] 20 mg PO DAILY #0 tab 07/11/17 Furosemide [Lasix] 40 mg PO BID 10/26/17 Gabapentin 300 mg PO DAILY 10/26/17 Insulin (Novolog 70/30) [Novolog Mix 70/30 Vial -] 10 units SQ BIDAC 10/26/17 Metoprolol Succinate [Toprol XL -] 100 mg PO DAILY 10/26/17 Rivaroxaban [Xarelto -] 20 mg PO DAILY 10/26/17 Sacubitril/Valsartan [Entresto 24 mg-26 mg Tablet] 1 each PO BID 10/26/17 Tamsulosin HCl [Flomax -] 0.4 mg PO DAILY 10/26/17 Family Disease History - Family Disease History Family Disease History: Other: Father (dialysis) Review of Systems - Review of Systems Constitutional: reports: Chills Eyes: reports: No Symptoms HENT: reports: No Symptoms Neck: reports: No Symptoms Cardiovascular: reports: Edema, Shortness of Breath Respiratory: reports: Cough, SOB, SOB on Exertion Gastrointestinal: reports: No Symptoms Genitourinary: reports: No Symptoms Breasts: reports: No Symptoms Reported Musculoskeletal: reports: No Symptoms Integumentary: reports: No Symptoms Neurological: reports: No Symptoms Endocrine: reports: No Symptoms Hematology/Lymphatic: reports: No Symptoms Psychiatric: reports: No Symptoms Physical Examination Vital Signs: Vital Signs Temperature 98.3 F 10/26/17 18:40 Pulse Rate 102 H 10/26/17 18:37 Respiratory Rate 22 10/26/17 18:37 Blood Pressure 138/92 10/26/17 18:37 O2 Sat by Pulse Oximetry (%) 98 10/26/17 18:37 Constitutional: Yes: Well Nourished, Mild Distress Eyes: Yes: WNL, Conjunctiva Clear, EOM Intact, PERRL HENT: Yes: WNL, Atraumatic, Normocephalic Neck: Yes: WNL, Supple, Trachea Midline Cardiovascular: Yes: Pulse Irregular, S1, S2 Respiratory: Yes: Diminished (RLL), On Nasal O2, Rhonchi, SOB, Wheezes Gastrointestinal: Yes: WNL, Normal Bowel Sounds, Soft ...Rectal Exam: Yes: Deferred Renal/: Yes: WNL Breast(s): Yes: WNL Musculoskeletal: Yes: WNL Edema: Yes Edema: LLE: 2+, RLE: 2+ Peripheral Pulses WNL: Yes Integumentary: Yes: Venous Stasis Changes (b/l lower legs) Neurological: Yes: WNL, Alert, Oriented, Cran Nerves II-XII Intact ...Motor Strength: WNL Psychiatric: Yes: WNL, Alert, Oriented Labs: CBC, BMP 10/26/17 14:00 10/26/17 14:00 Imaging - Results Chest X-ray: Report Reviewed, Image Reviewed EKG: Image Reviewed Problem List - Problems (1) CHF (congestive heart failure) Code(s): I50.9 - HEART FAILURE, UNSPECIFIED Qualifiers: Congestive heart failure type: unspecified congestive heart failure type Congestive heart failure chronicity: acute on chronic Qualified Code(s): I50.9 - Heart failure, unspecified (2) Pneumonia Code(s): J18.9 - PNEUMONIA, UNSPECIFIED ORGANISM Qualifiers: Pneumonia type: due to unspecified organism Laterality: left Lung location: lower lobe of lung Qualified Code(s): J18.1 - Lobar pneumonia, unspecified organism (3) Acute exacerbation of chronic obstructive pulmonary disease (COPD) Code(s): J44.1 - CHRONIC OBSTRUCTIVE PULMONARY DISEASE W (ACUTE) EXACERBATION (4) Dyspnea Code(s): R06.00 - DYSPNEA, UNSPECIFIED (5) Cough Code(s): R05 - COUGH (6) PAF (paroxysmal atrial fibrillation) Code(s): I48.0 - PAROXYSMAL ATRIAL FIBRILLATION (7) Diabetes mellitus Code(s): E11.9 - TYPE 2 DIABETES MELLITUS WITHOUT COMPLICATIONS (8) H/O heart artery stent Code(s): Z95.5 - PRESENCE OF CORONARY ANGIOPLASTY IMPLANT AND GRAFT Assessment/Plan This is a 62 y/o man with a PMHx of: Afib (Eliquis), COPD, DM, HTN, HLD. Admitted for CHF Exacerbation, Pneumonia, COPD Exacerbation. Plan: 1. Acute CHF Exacerbation- Lasix given in ED, will continue. Appreciate Cardiology Consult, Strict INOs, Elevate extremities, BNP 9039 greater than baseline 3424- 06/2017, Chest Xray reviewed. 2. Community Acquired Pneumonia- [id number] Score- 1, Chest xray report- consolidative opacity RLL- consistent with Pneumonia calcified granulomas right midlung and right lung base unchanged. Azithromycin given in ED. Will add Ceftriaxone and continue for CAP. Blood Cultures-pending, Urine Legionella, Appreciate ID Consult. Monitor CBC, Monitor vitals. Visit type - Emergency Visit Emergency Visit: Yes ED Registration Date: 10/26/17 Care time: The patient presented to the Emergency Department on the above date and was hospitalized for further evaluation of their emergent condition. - New Patient This patient is new to me today: Yes Date on this admission: 10/26/17 - Critical Care Critical Care patient: No
[2017-10-26] MEDS: SACUBITRIL/VALSARTAN 24 MG-26 MG TABLET PO SCH (23:05)
[2017-10-27 00:16] VITALS: BMI 28.8
[2017-10-27] MEDS ORDERED: CEFTRIAXONE 1 G/50 ML PREMIX 50 ML IVPB ONE (02:24)
[2017-10-27] MEDS: methylPREDNISolone NA SUCC 40 MG/1 ML VIAL IVPUSH SCH ×4 (02:59→21:35)
[2017-10-27] MEDS ORDERED: METOPROLOL TARTRATE 25 MG TABLET (FP) PO ONE (03:14)
[2017-10-27] MEDS ORDERED: HEPARIN NA (PORCINE) 5,000 UNITS/ML 1ML VIAL SQ SCH (06:00)
[2017-10-27] MEDS: FUROSEMIDE 40 MG/4 ML INJECTABLE VIAL IVPUSH SCH ×2 (06:09→15:08)
[2017-10-27] MEDS: IPRATROPIUM BR 0.02% 0.5 MG/2.5 ML VIAL.NEB. NEB SCH ×4 (06:17→23:45)
[2017-10-27] MEDS: INSULIN SLIDING SCALE (NOVOLOG) 1 VIAL SQ SCH ×3 (06:46→16:57)
--- NOTE | 2017-10-27 08:03 | PN ---
Progress Note, Physician History of Present Illness: 62 y/o man with a significant past medical history of Afib (on Eliquis), COPD, HTN, HLD, DM. Who presents to the ED with SOB, PICKETT, Orthopnea, and a productive cough x 2-3 days. Patient reports having increased SOB, worse after taking 5 steps. Patient reports having chest tightness after coughing. He reports having increased b/l leg swelling x 4 months worse over the last few days. - Current Medication List Current Medications: Active Medications Aspirin (Asa -) 81 mg PO DAILY [facility] Atorvastatin Calcium (Lipitor -) 10 mg PO HS [facility] Furosemide (Lasix Injection -) 40 mg IVPUSH BID@0600,1400 [facility] Last Admin: 10/27/17 06:09 Dose: 40 mg Gabapentin (Neurontin -) 300 mg PO DAILY [facility] Insulin Aspart (Novolog Vial Sliding Scale -) 1 vial SQ ACHS [facility] PRN Reason: Protocol Last Admin: 10/27/17 06:46 Dose: 8 units Ipratropium [place] (Atrovent 0.02% Nebulizer -) 1 amp NEB QIDR [facility] Last Admin: 10/27/17 06:17 Dose: 1 amp Methylprednisolone Sodium Succinate (Solu-Medrol -) 40 mg IVPUSH Q6H-IV [facility] Last Admin: 10/27/17 02:59 Dose: 40 mg Metoprolol Succinate (Toprol Xl -) 100 mg PO DAILY [facility] Rivaroxaban (Xarelto -) 20 mg PO DAILY [facility] Tamsulosin HCl (Flomax -) 0.4 mg PO DAILY@0830 [facility] - Objective Vital Signs: Vital Signs Temperature 97.9 F 10/27/17 06:00 Pulse Rate 97 H 10/27/17 06:00 Respiratory Rate 20 10/27/17 06:00 Blood Pressure 170/110 10/27/17 06:00 O2 Sat by Pulse Oximetry (%) 96 10/26/17 23:56 Cardiovascular: Yes: Pulse Irregular, S1, S2 Respiratory: Yes: Rales Gastrointestinal: Yes: Normal Bowel Sounds, Soft Edema: Yes Labs: CBC, BMP 10/26/17 14:00 10/26/17 14:00 Assessment/Plan - Problems (1) CHF (congestive heart failure) IV LASIX MONITOR LABS CARDIOLOGY CONSULT Code(s): I50.9 - HEART FAILURE, UNSPECIFIED Qualifiers: Congestive heart failure type: unspecified congestive heart failure type Congestive heart failure chronicity: acute on chronic Qualified Code(s): I50.9 - Heart failure, unspecified (2) Pneumonia IV ABX ID CONSULT CULTURES Code(s): J18.9 - PNEUMONIA, UNSPECIFIED ORGANISM Qualifiers: Pneumonia type: due to unspecified organism Laterality: left Lung location: lower lobe of lung Qualified Code(s): J18.1 - Lobar pneumonia, unspecified organism (3) Acute exacerbation of chronic obstructive pulmonary disease (COPD) NEBS PULM CONSULT Code(s): J44.1 - CHRONIC OBSTRUCTIVE PULMONARY DISEASE W (ACUTE) EXACERBATION (4) Dyspnea Code(s): R06.00 - DYSPNEA, UNSPECIFIED (5) Cough Code(s): R05 - COUGH (6) PAF (paroxysmal atrial fibrillation) ON ELIQUIS MONITOR RATE Code(s): I48.0 - PAROXYSMAL ATRIAL FIBRILLATION (7) Diabetes mellitus BGM WITH SS ENDO Code(s): E11.9 - TYPE 2 DIABETES MELLITUS WITHOUT COMPLICATIONS (8) H/O heart artery stent FOLLOW CE EKG CARDIO Code(s): Z95.5 - PRESENCE OF CORONARY ANGIOPLASTY IMPLANT AND GRAFT
--- NOTE | 2017-10-27 08:04 | PN ---
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 Known COPD history of cardiac ablation [facility] weeks ago. States had a productive couph for few days before coming in now but no fever or chills Selected Entries 10/27/17 06:00 Temperature 97.9 F Pulse Rate 97 H Respiratory 20 Rate Blood Pressure 170/110 Laboratory Tests 10/26/17 10/26/17 14:00 14:00 WBC 10.5 H Hgb 11.4 L D Hct 36.2 Plt Count 364 D BUN 23 H Creatinine 0.8 Assessment ? Pneumonia RLL would give benefit of doubt though cannot rule out CHF COPD ( smoker) Atrial fibrillation post ablation [facility] DM Plan Screen for Influenza Cardiology evaluation Reasonable to give Ceftriaxone for day or 2 HIV testing Shanon MORE Problem List - Problems (1) Atrial fibrillation Code(s): I48.91 - UNSPECIFIED ATRIAL FIBRILLATION Qualifiers: Atrial fibrillation type: chronic Qualified Code(s): I48.2 - Chronic atrial fibrillation (2) CHF (congestive heart failure) Code(s): I50.9 - HEART FAILURE, UNSPECIFIED Qualifiers: Congestive heart failure type: unspecified congestive heart failure type Congestive heart failure chronicity: acute on chronic Qualified Code(s): I50.9 - Heart failure, unspecified (3) COPD (chronic obstructive pulmonary disease) Code(s): J44.9 - CHRONIC OBSTRUCTIVE PULMONARY DISEASE, UNSPECIFIED Qualifiers: COPD type: unspecified COPD Qualified Code(s): J44.9 - Chronic obstructive pulmonary disease, unspecified (4) Pneumonia Code(s): J18.9 - PNEUMONIA, UNSPECIFIED ORGANISM Qualifiers: Pneumonia type: due to unspecified organism Laterality: left Lung location: lower lobe of lung Qualified Code(s): J18.1 - Lobar pneumonia, unspecified organism
[2017-10-27 08:15] LABS: BASO % 0.2 % (0-2.0); HEMATOCRIT 37.4 % (35.4-49); HEMOGLOBIN 11.8 GM/dL (11.7-16.9); LYMPH % 9.5 % (8-40); MCH 24.2 pg (25.7-33.7); MCHC 31.4 g/dl (32.0-35.9); MEAN CELL VOLUME 76.9 fl (80-96); MEAN PLT VOLUME 9.9 fl (7.5-11.1); MONO % 1.3 % (3.8-10.2); PLATELET COUNT 376 K/MM3 (134-434); RBC 4.86 M/mm3 (4.00-5.60); RDW 17.9 % (11.9-15.9); WHITE BLOOD COUNT 9.4 K/mm3 (4.0-10.0)
--- NOTE | 2017-10-27 08:50 | CONS ---
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 He also noted associated cough which he said was productive but not associated with any fever, chills, body aches or other systemic complaints. He was unable to move more than 5 steps before becoming short of breath and apparently experienced some chest tightness after coughing. He has also had increasing leg edema over the last 4 months. He has a history of known coronary artery disease with congestive heart failure, hypertension, hyperlipidemia, diabetes and paroxysmal atrial fibrillation, noting that he underwent a cardiac ablative procedure at [facility] several weeks ago. Here a chest x-ray showed a possible infiltrate in the right lower lobe. I do not see where blood cultures were drawn on admission, but he was given a dose of ceftriaxone and azithromycin and currently is lying in bed appearing quite comfortable and without any fever since admission. PAST MEDICAL HISTORY: As noted above. Additionally cholecystectomy, hernia repair, coronary stents. MEDICATIONS: Insulin, aspirin, Amaryl, Zocor, Lasix, gabapentin, metoprolol, Xarelto, Entresto, Flomax. ALLERGIES: None known. SOCIAL HISTORY: Lives with friends. States has children but not . HIV status unknown. 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 No recent travel. Pets include a dog. Many years of smoking, including still now. No alcohol or substance abuse. FAMILY HISTORY: Noncontributory, though has a father on dialysis. REVIEW OF SYSTEMS:Respiratory: Exertional dyspnea with productive cough. No hemoptysis. Cardiac: Positive chest pain, none currently. No palpitations, syncope. History of atrial fibrillation with ablation. Gastrointestinal: No nausea, abdominal pain, weight loss, diarrhea, vomiting. Genitourinary: No dysuria, hematuria, urinary frequency. PHYSICAL EXAMINATION:General: He was an alert male, lying in bed in no acute distress. Vital Signs: The temperature was 98, pulse 102, blood pressure 138/92, respirations 20, oxygen saturation 98%. Neck: Supple. No adenopathy. Lungs: With diminished breath sounds. No rales or rhonchi. Heart: S1, S2 irregular. No audible murmur. Abdomen: Soft, nontender, without hepatosplenomegaly. Extremities: Reveal bilateral edema in the lower legs. LABORATORY DATA: The white count is 10.5, hemoglobin 11.4, platelets 364 with a normal differential. The BUN 23, creatinine 0.8, bilirubin 4.5, AST 34, ALT 46, alkaline phosphatase 194. Chest x-ray shows possible infiltrate in the right lower lobe. ASSESSMENT: A 62-year-old male with history of diabetes, heart failure, hypertension, atrial fibrillation with recent ablation procedure, presents with severe exertional dyspnea consistent with a diagnosis of exacerbation of chronic obstructive pulmonary disease. A possible underlying precipitating cause of congestive heart failure considered with possible pneumonia as the reason, thought the x-ray findings could also be consistent with congestive heart failure. He has no fever or other signs of toxicity. He does have elevated liver functions noted and the absence of any abdominal pain. Would suggest treating him with ceftriaxone 1 g daily. Obtain influenza screening. As he has been already treated with antibiotics, I would not get blood cultures at this point. Will order a sonogram of the liver and Cardiology evaluation. SONYA KASPER M.D. [id number]
[2017-10-27 08:54] LABS: ANION GAP 14 (8-16); BLOOD UREA NITROGEN 31 mg/dL (7-18); CALCIUM 8.4 mg/dL (8.5-10.1); CHLORIDE 98 mmol/L (98-107); CO2 24 mmol/L (21-32); PHOSPHOROUS 4.3 mg/dL (2.5-4.9); POTASSIUM 4.7 mmol/L (3.5-5.1); SODIUM 136 mmol/L (136-145)
[2017-10-27] MEDS: TAMSULOSIN HCL 0.4 MG CAP.ER.24H (FP) PO SCH (08:54)
[2017-10-27] MEDS: INSULIN DETEMIR 100 UNITS/ML MDV SQ SCH ×3 (08:54→23:02)
[2017-10-27] MEDS ORDERED: PT OWN MED DRAWER 7, Y5N ONE ×3 (09:12→19:00)
[2017-10-27 09:32] LABS: GLUCOSE,RANDOM 359 mg/dL (74-106)
[2017-10-27] MEDS: ASPIRIN 81 MG CHEWABLE TABLETS PO SCH (09:36)
[2017-10-27] MEDS: GABAPENTIN 300 MG CAPSULE (FP) PO SCH (09:36)
[2017-10-27] MEDS: SACUBITRIL/VALSARTAN 24 MG-26 MG TABLET PO SCH ×2 (09:36→21:36)
[2017-10-27] MEDS: RIVAROXABAN 20 MG TABLET PO SCH (09:37)
[2017-10-27] MEDS ORDERED: METOPROLOL SUCCINATE 100 MG TAB.SR.24H (FP) PO SCH (10:00)
[2017-10-27] MEDS ORDERED: VALSARTAN 160 MG TABLET (UD) PO SCH ×2 (10:00)
[2017-10-27 10:40] LABS: URINE APPEARANCE CLEAR; URINE BILIRUBIN NEGATIVE (NEGATIVE); URINE BLOOD 1+ (NEGATIVE); URINE COLOR YELLOW; URINE GLUCOSE (UA) 3+ (NEGATIVE); URINE KETONE 1+ (NEGATIVE); URINE LEUK ESTERASE NEGATIVE (NEGATIVE); URINE NITRITE NEGATIVE (NEGATIVE); URINE UROBILINOGEN NEGATIVE mg/dL (0.2-1.0)
[2017-10-27 10:58] LABS: URINE PROTEIN 2+ (NEGATIVE)
[2017-10-27] MEDS: CEFTRIAXONE 1 GM in DEXTROSE 5%-WATER - 50 ML IVPB SCH (11:21)
[2017-10-27 11:47] LABS: URINE HYALINE CAST 1 /lpf; URINE MUCUS RARE
--- NOTE | 2017-10-27 13:25 | EKG ---
Test Reason : Blood Pressure : / mmHG Vent. Rate : 117 BPM Atrial Rate : 249 BPM P-R Int : 000 ms QRS Dur : 084 ms QT Int : 308 ms P-R-T Axes : 086 -04 077 degrees QTc Int : 429 ms ATRIAL FLUTTER WITH VARIABLE A-V BLOCK WITH PREMATURE VENTRICULAR OR ABERRANTLY CONDUCTED COMPLEXES NONSPECIFIC T WAVE ABNORMALITY ABNORMAL ECG WHEN COMPARED WITH ECG OF 26-OCT-2017 13:08, NO SIGNIFICANT CHANGE WAS FOUND Confirmed by JOLENE KELLEY MD ([id number]) on 10/27/2017 1:25:19 PM Referred By: Confirmed By:JOLENE KELLEY MD
--- NOTE | 2017-10-27 13:31 | EKG ---
Test Reason : Blood Pressure : / mmHG Vent. Rate : 104 BPM Atrial Rate : 258 BPM P-R Int : 000 ms QRS Dur : 082 ms QT Int : 366 ms P-R-T Axes : 000 009 071 degrees QTc Int : 481 ms ATRIAL FLUTTER WITH VARIABLE A-V BLOCK NONSPECIFIC T WAVE ABNORMALITY ABNORMAL ECG WHEN COMPARED WITH ECG OF 09-JUL-2017 08:58, ATRIAL FLUTTER HAS REPLACED ATRIAL FIBRILLATION NONSPECIFIC T WAVE ABNORMALITY, IMPROVED IN INFERIOR LEADS Confirmed by JOLENE KELLEY MD ([id number]) on 10/27/2017 1:31:29 PM Referred By: Confirmed By:JOLENE KELLEY MD
--- NOTE | 2017-10-27 13:44 | PN ---
Progress Note (short form) - Note Progress Note: PULMONARY CONSULTATION DICTATED 10/27/17 IMP DYSPNEA PNEUMONIA ACUTE ON CHRONIC CHF ASHD S/P STENT AFIB S/P RECENT ABLATION DM + TROPONIN PLAN IV ANTIBIOTICS LASIX TREND TROPONINS O2 INHALED BRONCHODILATORS CARDIOLOGY EVAL CHEST CT F/U CHEST X-RAYS DR GOMEZ Problem List - Problems (1) Atrial fibrillation Code(s): I48.91 - UNSPECIFIED ATRIAL FIBRILLATION Qualifiers: Atrial fibrillation type: chronic Qualified Code(s): I48.2 - Chronic atrial fibrillation (2) CHF (congestive heart failure) Code(s): I50.9 - HEART FAILURE, UNSPECIFIED Qualifiers: Congestive heart failure type: unspecified congestive heart failure type Congestive heart failure chronicity: acute on chronic Qualified Code(s): I50.9 - Heart failure, unspecified (3) COPD (chronic obstructive pulmonary disease) Code(s): J44.9 - CHRONIC OBSTRUCTIVE PULMONARY DISEASE, UNSPECIFIED Qualifiers: COPD type: unspecified COPD Qualified Code(s): J44.9 - Chronic obstructive pulmonary disease, unspecified (4) Acute exacerbation of chronic obstructive pulmonary disease (COPD) Code(s): J44.1 - CHRONIC OBSTRUCTIVE PULMONARY DISEASE W (ACUTE) EXACERBATION (5) Cough Code(s): R05 - COUGH (6) Diabetes mellitus Code(s): E11.9 - TYPE 2 DIABETES MELLITUS WITHOUT COMPLICATIONS (7) Elevated troponin Code(s): R74.8 - ABNORMAL LEVELS OF OTHER SERUM ENZYMES (8) H/O heart artery stent Code(s): Z95.5 - PRESENCE OF CORONARY ANGIOPLASTY IMPLANT AND GRAFT (9) Pneumonia Code(s): J18.9 - PNEUMONIA, UNSPECIFIED ORGANISM Qualifiers: Pneumonia type: due to unspecified organism Laterality: left Lung location: lower lobe of lung Qualified Code(s): J18.1 - Lobar pneumonia, unspecified organism (10) Dyspnea Code(s): R06.00 - DYSPNEA, UNSPECIFIED
--- NOTE | 2017-10-27 14:11 | CONS ---
PULMONARY CONSULTATION DATE OF CONSULTATION: 10/27/2017 REFERRING PHYSICIAN: Britany Weaver MD HISTORY OF PRESENT ILLNESS: The patient is a 62-year-old male known to me from previous office visit with past medical history of atrial fibrillation status post recent ablation, hypertension, hyperlipidemia, COPD, diabetes, history of tobacco use, about 1-1/2 packs every 2 weeks since age 4, quit recently, admitted to [facility] with complaint of 2-3 day history of increased shortness of breath, cough, and chest congestion. Patient denied any fever, chills. He states that he can only walk a few steps he is short of breath. The past couple of days, though, he stated 3-4 steps, feels short of breath. Denies any chest pain complains of chest tightness and coughing with palpitations. Denies any nausea, vomiting, or diaphoresis. Denied hemoptysis. There is no history of recent travel. He denies any history of DVT or PE in the past. Patient presented to the emergency room. In the ER, he had chest x-ray performed which revealed a new right lower lobe consolidation. He was admitted to floor and started on broad-spectrum antibiotics for possible pneumonia. PAST MEDICAL HISTORY: Again includes COPD, atrial fibrillation status post recent ablation, hypertension, hyperlipidemia, diabetes, ASHD status post stent. REVIEW OF SYSTEMS: Positive shortness of breath. Positive cough. Positive chest congestion. No fever. No chills. No hemoptysis. No abdominal pain. No lower extremity edema. SOCIAL HISTORY: No occupational exposures. History of smoking, quit April 2017. CURRENT MEDICATIONS: Include Solu-Medrol, Flomax, ceftriaxone, Xarelto, Neurontin, Toprol, Atrovent, Lipitor, NovoLog, Levemir, Lasix, aspirin, Amaryl. PHYSICAL EXAMINATION: General: The patient is a thin male, well developed, awake, alert, in no acute distress. Vital Signs: He is currently afebrile. Heart rate is 84. Blood pressure 150/97, respiratory rate is 20, O2 saturation is 93% on room air. HEENT: Normocephalic, atraumatic. Neck: Supple. Heart: Irregular, irregular. Normal S1, S2. Chest: A few crackles at the right base. Abdomen: Soft. Bowel sounds are positive. Extremities: No signs of edema. LABORATORY DATA: WBC is 9.4, hemoglobin 11.8, hematocrit 37.4, and a platelet count of 376,000. INR is 1.06. BUN 31, creatinine 1.0. Troponin 0.17. BNP is 9039. Chest x-ray: Right lower lobe consolidation. IMPRESSION: 1. Dyspnea, shortness of breath, multiple factors; rule out pneumonia, right lower lobe. 2. Congestive heart failure. 3. Atrial fibrillation status post ablation. 4. Diabetes mellitus. PLAN: IV antibiotics, supplemental O2, diuretics, CT scan of the chest, obtain cultures, cardiology evaluation. KISHAN GOMEZ M.D. [id number]
--- NOTE | 2017-10-27 19:28 | CON.CARD ---
Consult Consult Specialty:: Cardiology Referred by:: Dr. Weaver Reason for Consultation:: CHF and atrial flutter - History of Present Illness Chief Complaint: Shortness of breath and palpitation History of Present Illness: 62 year-old man with a PMH of paroxysmal atrial fibrillation, s/p atrial fibrillation in 10/04/2017 at [facility], COPD, HTN, HLD, DM and CAD s/p LAD PCI/stent in 2014, NSTEMI s/p cardiac cath at [facility] 05/07/2017 which revealed patent LAD stent, non-obstructive LCx and RCA. But the small ramus has severre 95% stenosis, not amendable for PCI because of the size of the vessel admitted 2017 for pneumonia and CHF. The patient had SOB, PICKETT, orthopnea, and a productive cough x 2-3 days. Patient reports having increased SOB, worse after taking 5 steps. Patient reports palpitation, chest tightness and b/l leg swelling x 4 months worse over the last few days. Patient denies fever, dizziness, RUIZ, CP, AP, N/V/D, constipation , dysuria. He was seen by Pulmonary for pneumonia and receiving Lasix for CHF. Tele shows atrial flutter with variable AV block and rapid VR. He is ruling in for NSTEMI. - History Source History Provided By: Patient Limitations to Obtaining History: No Limitations - Past Medical History Cardio/Vascular: Yes: AFIB (paroxysmal), CAD, CHF, HTN, Hyperlipdemia Endocrine: Yes: Diabetes Mellitus - Past Surgical History Past Surgical History: Yes: Cholecystectomy, Hernia Repair (x2), Stent - Alcohol/Substance Use Hx Alcohol Use: No History of Substance Use: reports: None - Smoking History Smoking history: Former smoker Have you smoked in the past 12 months: Yes Aproximately how many cigarettes per day: 4 If you are a former smoker, when did you quit?: 04/2017 - Social History ADL: Independent 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, 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 History of Recent Travel: No Home Medications - Allergies Allergies/Adverse Reactions: Allergies Allergy/AdvReac Type Severity Reaction Status Date / Time No Known Allergies Allergy Verified 10/26/17 12:21 - Home Medications Home Medications: Ambulatory Orders Insulin Glargine,Hum.rec.anlog [[place] U-100] 30 unit SQ HS 07/09/17 Aspirin [ASA -] 81 mg PO DAILY #0 tab 07/11/17 Glimepiride [Amaryl -] 4 mg PO DAILY@0700 #0 tab 07/11/17 Simvastatin [Zocor -] 20 mg PO DAILY #0 tab 07/11/17 Furosemide [Lasix] 40 mg PO BID 10/26/17 Gabapentin 300 mg PO DAILY 10/26/17 Insulin (Novolog 70/30) [Novolog Mix 70/30 Vial -] 10 units SQ BIDAC 10/26/17 Metoprolol Succinate [Toprol XL -] 100 mg PO DAILY 10/26/17 Rivaroxaban [Xarelto -] 20 mg PO DAILY 10/26/17 Sacubitril/Valsartan [Entresto 24 mg-26 mg Tablet] 1 each PO BID 10/26/17 Tamsulosin HCl [Flomax -] 0.4 mg PO DAILY 10/26/17 Family Disease History - Family Disease History Family Disease History: Other: Father (dialysis) Review of Systems - Review of Systems Constitutional: reports: Chills, Fever Eyes: reports: No Symptoms HENT: reports: No Symptoms Neck: reports: No Symptoms Cardiovascular: reports: Chest Pain, Edema, Palpitations, Shortness of Breath Respiratory: reports: Cough, Exercise Intolerance, Orthopnea, PND, SOB, SOB on Exertion Gastrointestinal: reports: No Symptoms Genitourinary: reports: No Symptoms Musculoskeletal: reports: No Symptoms Neurological: reports: No Symptoms Endocrine: reports: No Symptoms Hematology/Lymphatic: reports: No Symptoms Psychiatric: reports: No Symptoms - Risk Factors Known Risk Factors: Yes: Age, Diabetes Mellitus Vital Signs: Vital Signs Temperature 97.5 F L 10/27/17 17:23 Pulse Rate 92 H 10/27/17 17:23 Respiratory Rate 20 10/27/17 17:23 Blood Pressure 154/94 10/27/17 17:23 O2 Sat by Pulse Oximetry (%) 93 L 10/27/17 09:00 Constitutional: Yes: Well Nourished, No Distress, Calm Eyes: Yes: Conjunctiva Clear, EOM Intact HENT: Yes: Atraumatic, Normocephalic Neck: Yes: Supple, Trachea Midline Respiratory: Yes: Regular, Diminished, Dullness, Rales, SOB Gastrointestinal: Yes: Normal Bowel Sounds, Soft Cardiovascular: Yes: Tachycardia, Pulse Irregular JVD: No Carotid Bruit: No Heart Sounds: Yes: S1, S2 Murmur: Yes: Systolic Murmur, Grade 2 Musculoskeletal: Yes: WNL Edema: Yes Edema: LLE: 1+, RLE: Trace Peripheral Pulses WNL: No - Other Data Labs, Other Data: CBC, BMP 10/27/17 07:47 Troponin, BNP 10/27/17 09:00 Troponin I 0.17 H D Troponin, BNP 10/27/17 09:00 Troponin I 0.17 H D Atrial flutter with variable AVB. Normal axis. Non-specific T wave abnormalities. Imaging - Results EKG: Image Reviewed (Atrial flutter with variable AVB. Normal axis. Non- specific T wave abnormalities.) Assessment/Plan 62 year-old man with a PMH of paroxysmal atrial fibrillation, s/p atrial fibrillation in 10/04/2017 at [facility], COPD, HTN, HLD, DM and CAD s/p LAD PCI/stent in 2014, NSTEMI s/p cardiac cath at [facility] 05/07/2017 which revealed patent LAD stent, non-obstructive LCx and RCA. But the small ramus has severre 95% stenosis, not amendable for PCI because of the size of the vessel admitted 2017 for pneumonia and CHF. He was seen by Pulmonary for pneumonia and receiving Lasix for CHF. Tele shows atrial flutter with variable AV block and rapid VR. He is ruling in for NSTEMI. 1) CHF, likely acute diastolic CHF with physical signs of fluid overload and elevated pro-BNP. Increase IV Lasix to 40 mg q12 hours to keep Os > Is. Monitor electrolytes and renal function. Obtain an echo 2) Atrial fibrillation and flutter: S/p atrial fibrillation in 10/04/2017 at [facility]. Now he has atrial flutter with rapid VR. VR control: Transfer to tele Increase Metoprolol succinate to 150 mg daily Add Digoxin 0.25 mg daily for 4 days and decrease it 0.125 mg daily Continue Xarelto for stroke prevention. 3) NSTEMI: likely type II CA with underline CAD with tight small ramus. Conservative cardiac care. Add Imdur 30 mg daily. Continue Aspirin 81 mg daily, Metoprolol and restart simvastatin. VR control as above. We will follow with you.
[2017-10-27] MEDS: ATORVASTATIN CA 10 MG TABLET (FP) PO SCH (21:36)
[2017-10-27] MEDS: traMADol HCL 50 MG TABLET PO PRN (21:46)
[2017-10-28] MEDS: MELATONIN 5 MG TABLETS PO PRN ×2 (00:29→23:19)
[2017-10-28] MEDS: INSULIN SLIDING SCALE (NOVOLOG) 1 VIAL SQ SCH ×5 (00:32→23:18)
[2017-10-28] MEDS: methylPREDNISolone NA SUCC 40 MG/1 ML VIAL IVPUSH SCH ×4 (02:14→21:30)
[2017-10-28] MEDS: IPRATROPIUM BR 0.02% 0.5 MG/2.5 ML VIAL.NEB. NEB SCH ×4 (06:23→23:31)
[2017-10-28] MEDS: FUROSEMIDE 40 MG/4 ML INJECTABLE VIAL IVPUSH SCH ×2 (06:25→14:39)
[2017-10-28] MEDS ORDERED: GLIMEPIRIDE 4 MG TABLET (FP) PO SCH (07:00)
[2017-10-28 07:18] LABS: BASO % 0.1 % (0-2.0); HEMOGLOBIN 11.3 GM/dL (11.7-16.9); LYMPH % 5.5 % (8-40); MCH 24.5 pg (25.7-33.7); MCHC 32.3 g/dl (32.0-35.9); MEAN CELL VOLUME 75.7 fl (80-96); MEAN PLT VOLUME 9.7 fl (7.5-11.1); MONO % 2.2 % (3.8-10.2); NEUT % 92.2 % (42.8-82.8); PLATELET COUNT 419 K/MM3 (134-434); RBC 4.63 M/mm3 (4.00-5.60); RDW 18.1 % (11.9-15.9)
[2017-10-28 08:51] LABS: ALBUMIN 2.2 g/dl (3.4-5.0); ANION GAP 6 (8-16); BILIRUBIN,TOTAL 4.2 mg/dL (0.2-1.0); BLOOD UREA NITROGEN 35 mg/dL (7-18); CALCIUM 8.3 mg/dL (8.5-10.1); CHLORIDE 98 mmol/L (98-107); CO2 31 mmol/L (21-32); CREATININE 1.1 mg/dL (0.7-1.3); GLUCOSE,RANDOM 278 mg/dL (74-106); POTASSIUM 4.4 mmol/L (3.5-5.1); SGOT/AST 15 U/L (15-37); SGPT/ALT 35 U/L (12-78); SODIUM 135 mmol/L (136-145)
[2017-10-28 08:55] LABS: ALK PHOS 166 U/L (45-117); TOT PROT 5.8 g/dl (6.4-8.2)
--- NOTE | 2017-10-28 09:41 | PN ---
Progress Note, Physician History of Present Illness: 62 y/o man with a significant past medical history of Afib (on Eliquis), COPD, HTN, HLD, DM. Who presents to the ED with SOB, PICKETT, Orthopnea, and a productive cough x 2-3 days. Patient reports having increased SOB, worse after taking 5 steps. Patient reports having chest tightness after coughing. He reports having increased b/l leg swelling x 4 months worse over the last few days. feels better this am - Current Medication List Current Medications: Active Medications Aspirin (Asa -) 81 mg PO DAILY [facility] Last Admin: 10/27/17 09:36 Dose: 81 mg Atorvastatin Calcium (Lipitor -) 10 mg PO HS [facility] Last Admin: 10/27/17 21:36 Dose: 10 mg Digoxin (Lanoxin -) 0.25 mg PO DAILY [facility] Furosemide (Lasix Injection -) 40 mg IVPUSH BID@0600,1400 [facility] Last Admin: 10/28/17 06:25 Dose: 40 mg Gabapentin (Neurontin -) 300 mg PO DAILY [facility] Last Admin: 10/27/17 09:36 Dose: 300 mg Glimepiride (Amaryl -) 4 mg PO DAILY@0700 [facility] Last Admin: 10/28/17 06:25 Dose: 4 mg Ceftriaxone Sodium 1 gm/ (Dextrose) 50 mls @ 100 mls/hr IVPB DAILY [facility] Stop: 10/30/17 10:59 Last Admin: 10/27/17 11:21 Dose: 100 mls/hr Insulin Aspart (Novolog Vial Sliding Scale -) 1 vial SQ ACHS [facility] PRN Reason: Protocol Last Admin: 10/28/17 06:24 Dose: 6 units Insulin Detemir (Levemir Vial) 15 units SQ BID [facility] Last Admin: 10/27/17 23:02 Dose: 15 units Ipratropium [place] (Atrovent 0.02% Nebulizer -) 1 amp NEB QIDR [facility] Last Admin: 10/28/17 06:23 Dose: 1 amp Melatonin (Melatonin) 5 mg PO PRN PRN Reason: INSOMNIA Last Admin: 10/28/17 00:29 Dose: 5 mg Methylprednisolone Sodium Succinate (Solu-Medrol -) 40 mg IVPUSH Q6H-IV [facility] Last Admin: 10/28/17 02:14 Dose: 40 mg Metoprolol Succinate (Toprol Xl -) 150 mg PO DAILY [facility] Rivaroxaban (Xarelto -) 20 mg PO DAILY [facility] Last Admin: 10/27/17 09:37 Dose: 20 mg Tamsulosin HCl (Flomax -) 0.4 mg PO DAILY@0830 [facility] Last Admin: 10/27/17 08:54 Dose: 0.4 mg Tramadol HCl (Ultram -) 50 mg PO Q6H PRN Last Admin: 10/27/17 21:46 Dose: 50 mg - Objective Vital Signs: Vital Signs Temperature 97.7 F 10/28/17 05:00 Pulse Rate 93 H 10/28/17 05:00 Respiratory Rate 20 10/28/17 05:00 Blood Pressure 147/98 10/28/17 05:00 O2 Sat by Pulse Oximetry (%) 93 L 10/27/17 21:00 Cardiovascular: Yes: S1, S2 Respiratory: Yes: Diminished, Rhonchi Gastrointestinal: Yes: Normal Bowel Sounds, Soft Edema: Yes Labs: CBC, BMP 10/28/17 06:17 10/28/17 06:17 Assessment/Plan - Problems (1) CHF (congestive heart failure) IV LASIX MONITOR LABS CARDIOLOGY CONSULT TELE Code(s): I50.9 - HEART FAILURE, UNSPECIFIED Qualifiers: Congestive heart failure type: unspecified congestive heart failure type Congestive heart failure chronicity: acute on chronic Qualified Code(s): I50.9 - Heart failure, unspecified (2) Pneumonia IV ABX ID CONSULT CULTURES Code(s): J18.9 - PNEUMONIA, UNSPECIFIED ORGANISM Qualifiers: Pneumonia type: due to unspecified organism Laterality: left Lung location: lower lobe of lung Qualified Code(s): J18.1 - Lobar pneumonia, unspecified organism (3) Acute exacerbation of chronic obstructive pulmonary disease (COPD) NEBS PULM CONSULT IV STEROIDS Code(s): J44.1 - CHRONIC OBSTRUCTIVE PULMONARY DISEASE W (ACUTE) EXACERBATION (4) Dyspnea Code(s): R06.00 - DYSPNEA, UNSPECIFIED (5) Cough Code(s): R05 - COUGH (6) PAF (paroxysmal atrial fibrillation) ON XARELTO INCREASE [id number] DIG ADDED CARDIO ON BOARD MONITOR RATE Code(s): I48.0 - PAROXYSMAL ATRIAL FIBRILLATION (7) Diabetes mellitus BGM WITH SS ENDO Code(s): E11.9 - TYPE 2 DIABETES MELLITUS WITHOUT COMPLICATIONS (8) H/O heart artery stent FOLLOW CE EKG CARDIO Code(s): Z95.5 - PRESENCE OF CORONARY ANGIOPLASTY IMPLANT AND GRAFT
[2017-10-28] MEDS: INSULIN DETEMIR 100 UNITS/ML MDV SQ SCH ×2 (10:04→22:13)
[2017-10-28] MEDS: RIVAROXABAN 20 MG TABLET PO SCH (10:05)
[2017-10-28] MEDS: GABAPENTIN 300 MG CAPSULE (FP) PO SCH (10:05)
[2017-10-28] MEDS: TAMSULOSIN HCL 0.4 MG CAP.ER.24H (FP) PO SCH (10:05)
[2017-10-28] MEDS: ASPIRIN 81 MG CHEWABLE TABLETS PO SCH (10:05)
[2017-10-28] MEDS: CEFTRIAXONE 1 GM in DEXTROSE 5%-WATER - 50 ML IVPB SCH (10:06)
--- NOTE | 2017-10-28 10:13 | PN ---
Progress Note, Physician Chief Complaint: ID Steroids and Ceftraixone day 2 Exertional dyspnea improved able to ambulate - Current Medication List Current Medications: Active Medications Aspirin (Asa -) 81 mg PO DAILY [facility] Last Admin: 10/27/17 09:36 Dose: 81 mg Atorvastatin Calcium (Lipitor -) 10 mg PO HS [facility] Last Admin: 10/27/17 21:36 Dose: 10 mg Digoxin (Lanoxin -) 0.25 mg PO DAILY [facility] Furosemide (Lasix Injection -) 40 mg IVPUSH BID@0600,1400 [facility] Last Admin: 10/28/17 06:25 Dose: 40 mg Gabapentin (Neurontin -) 300 mg PO DAILY [facility] Last Admin: 10/27/17 09:36 Dose: 300 mg Glimepiride (Amaryl -) 4 mg PO DAILY@0700 [facility] Last Admin: 10/28/17 06:25 Dose: 4 mg Ceftriaxone Sodium 1 gm/ (Dextrose) 50 mls @ 100 mls/hr IVPB DAILY [facility] Stop: 10/30/17 10:59 Last Admin: 10/27/17 11:21 Dose: 100 mls/hr Insulin Aspart (Novolog Vial Sliding Scale -) 1 vial SQ ACHS [facility] PRN Reason: Protocol Last Admin: 10/28/17 06:24 Dose: 6 units Insulin Detemir (Levemir Vial) 15 units SQ BID [facility] Last Admin: 10/27/17 23:02 Dose: 15 units Ipratropium [place] (Atrovent 0.02% Nebulizer -) 1 amp NEB QIDR [facility] Last Admin: 10/28/17 06:23 Dose: 1 amp Melatonin (Melatonin) 5 mg PO PRN PRN Reason: INSOMNIA Last Admin: 10/28/17 00:29 Dose: 5 mg Methylprednisolone Sodium Succinate (Solu-Medrol -) 40 mg IVPUSH Q6H-IV [facility] Last Admin: 10/28/17 02:14 Dose: 40 mg Metoprolol Succinate (Toprol Xl -) 150 mg PO DAILY [facility] Rivaroxaban (Xarelto -) 20 mg PO DAILY [facility] Last Admin: 10/27/17 09:37 Dose: 20 mg Tamsulosin HCl (Flomax -) 0.4 mg PO DAILY@0830 [facility] Last Admin: 10/27/17 08:54 Dose: 0.4 mg Tramadol HCl (Ultram -) 50 mg PO Q6H PRN Last Admin: 10/27/17 21:46 Dose: 50 mg - Objective Vital Signs: Vital Signs Temperature 97.7 F 10/28/17 05:00 Pulse Rate 93 H 10/28/17 05:00 Respiratory Rate 20 10/28/17 05:00 Blood Pressure 147/98 10/28/17 05:00 O2 Sat by Pulse Oximetry (%) 93 L 10/27/17 21:00 Constitutional: Yes: No Distress Neck: Yes: WNL, Supple Cardiovascular: Yes: Regular Rate and Rhythm, S1, S2 Respiratory: Yes: WNL, Regular, CTA Bilaterally. No: Rales, Rhonchi Gastrointestinal: Yes: WNL, Normal Bowel Sounds, Soft. No: Tenderness, Tenderness, Epigastrium Edema: Yes (LE ) Labs: CBC, BMP 10/28/17 06:17 10/28/17 06:17 Problem List - Problems (1) Atrial fibrillation Code(s): I48.91 - UNSPECIFIED ATRIAL FIBRILLATION Qualifiers: Atrial fibrillation type: chronic Qualified Code(s): I48.2 - Chronic atrial fibrillation (2) CHF (congestive heart failure) Code(s): I50.9 - HEART FAILURE, UNSPECIFIED Qualifiers: Congestive heart failure type: unspecified congestive heart failure type Congestive heart failure chronicity: acute on chronic Qualified Code(s): I50.9 - Heart failure, unspecified (3) COPD (chronic obstructive pulmonary disease) Code(s): J44.9 - CHRONIC OBSTRUCTIVE PULMONARY DISEASE, UNSPECIFIED Qualifiers: COPD type: unspecified COPD Qualified Code(s): J44.9 - Chronic obstructive pulmonary disease, unspecified (4) Pneumonia Code(s): J18.9 - PNEUMONIA, UNSPECIFIED ORGANISM Qualifiers: Pneumonia type: due to unspecified organism Laterality: left Lung location: lower lobe of lung Qualified Code(s): J18.1 - Lobar pneumonia, unspecified organism Assessment/Plan Microbiology 10/27/17 12:25 Nasopharyngeal Swab Influenza Types A,B Antigen (KRIS) - Final 10/27/17 12:25 Nasopharyngeal Swab - Final 10/27/17 06:50 Urine For Antigen Detection Legionella Antigen - Final 10/27/17 06:50 Urine For Antigen Detection Streptococcus pneumoniae Antigen (M - Final 10/27/17 06:25 Blood - Peripheral Venous Blood Culture - Preliminary NO GROWTH OBTAINED AFTER 24 HOURS, INCUBATION TO CONTINUE FOR 4 DAYS. 10/27/17 06:25 Blood - Peripheral Venous Blood Culture - Preliminary NO GROWTH OBTAINED AFTER 24 HOURS, INCUBATION TO CONTINUE FOR 4 DAYS. Laboratory Tests 10/27/17 10/27/17 10/27/17 09:00 09:00 17:45 WBC Hgb Plt Count BUN Creatinine Random Glucose 404 H* Hepatitis C Antibody 0.1 HIV 1&2 Antibody Screen Negative HIV P24 Antigen Negative 10/27/17 10/28/17 10/28/17 23:00 06:17 06:17 WBC 20.0 H D Hgb 11.3 L Plt Count 419 BUN 35 H Creatinine 1.1 Random Glucose 449 H* Hepatitis C Antibody HIV 1&2 Antibody Screen HIV P24 Antigen Assessment Pneumonia CHF COPD Atrial fibrillation Plan Continue current antibiotic as ordered Shanon MORE
[2017-10-28] MEDS: METOPROLOL SUCCINATE 100 MG TAB.SR.24H (FP) PO SCH (10:34)
[2017-10-28] MEDS: DIGOXIN 0.25 MG TABLET (FP) PO SCH (10:34)
[2017-10-28] MEDS ORDERED: PT OWN MED DRAWER 7, Y5N ONE ×3 (10:36→23:17)
[2017-10-28] MEDS: SACUBITRIL/VALSARTAN 24 MG-26 MG TABLET PO SCH ×2 (10:36→21:59)
--- NOTE | 2017-10-28 10:36 | PN ---
Progress Note, Physician History of Present Illness: PULMONARY ALERT,FEELING BETTER,LESS DYSPNEIC,+COUGH.TRANSFERRED TO TELEMETRY +TROPONINS - Current Medication List Current Medications: Active Medications Aspirin (Asa -) 81 mg PO DAILY [facility] Last Admin: 10/28/17 10:05 Dose: 81 mg Atorvastatin Calcium (Lipitor -) 10 mg PO HS [facility] Last Admin: 10/27/17 21:36 Dose: 10 mg Digoxin (Lanoxin -) 0.25 mg PO DAILY [facility] Furosemide (Lasix Injection -) 40 mg IVPUSH BID@0600,1400 [facility] Last Admin: 10/28/17 06:25 Dose: 40 mg Gabapentin (Neurontin -) 300 mg PO DAILY [facility] Last Admin: 10/28/17 10:05 Dose: 300 mg Glimepiride (Amaryl -) 4 mg PO DAILY@0700 [facility] Last Admin: 10/28/17 06:25 Dose: 4 mg Ceftriaxone Sodium 1 gm/ (Dextrose) 50 mls @ 100 mls/hr IVPB DAILY [facility] Stop: 10/30/17 10:59 Last Admin: 10/28/17 10:06 Dose: 100 mls/hr Insulin Aspart (Novolog Vial Sliding Scale -) 1 vial SQ ACHS [facility] PRN Reason: Protocol Last Admin: 10/28/17 06:24 Dose: 6 units Insulin Detemir (Levemir Vial) 15 units SQ BID [facility] Last Admin: 10/28/17 10:04 Dose: 15 units Ipratropium [place] (Atrovent 0.02% Nebulizer -) 1 amp NEB QIDR [facility] Last Admin: 10/28/17 06:23 Dose: 1 amp Melatonin (Melatonin) 5 mg PO PRN PRN Reason: INSOMNIA Last Admin: 10/28/17 00:29 Dose: 5 mg Methylprednisolone Sodium Succinate (Solu-Medrol -) 40 mg IVPUSH Q6H-IV [facility] Last Admin: 10/28/17 10:04 Dose: 40 mg Metoprolol Succinate (Toprol Xl -) 150 mg PO DAILY [facility] Rivaroxaban (Xarelto -) 20 mg PO DAILY [facility] Last Admin: 10/28/17 10:05 Dose: 20 mg Tamsulosin HCl (Flomax -) 0.4 mg PO DAILY@0830 [facility] Last Admin: 10/28/17 10:05 Dose: 0.4 mg Tramadol HCl (Ultram -) 50 mg PO Q6H PRN Last Admin: 10/27/17 21:46 Dose: 50 mg - Objective Vital Signs: Vital Signs Temperature 97.7 F 10/28/17 05:00 Pulse Rate 93 H 10/28/17 05:00 Respiratory Rate 20 10/28/17 05:00 Blood Pressure 147/98 10/28/17 05:00 O2 Sat by Pulse Oximetry (%) 93 L 10/27/17 21:00 Constitutional: Yes: Well Nourished, Calm Eyes: Yes: WNL HENT: Yes: WNL Neck: Yes: WNL Cardiovascular: Yes: Pulse Irregular, S1, S2 Respiratory: Yes: Diminished Gastrointestinal: Yes: Normal Bowel Sounds, Soft Extremities: Yes: WNL Edema: Yes Labs: CBC, BMP 10/28/17 06:17 10/28/17 06:17 Problem List - Problems (1) Atrial fibrillation Code(s): I48.91 - UNSPECIFIED ATRIAL FIBRILLATION Qualifiers: Atrial fibrillation type: chronic Qualified Code(s): I48.2 - Chronic atrial fibrillation (2) CHF (congestive heart failure) Code(s): I50.9 - HEART FAILURE, UNSPECIFIED Qualifiers: Congestive heart failure type: unspecified congestive heart failure type Congestive heart failure chronicity: acute on chronic Qualified Code(s): I50.9 - Heart failure, unspecified (3) COPD (chronic obstructive pulmonary disease) Code(s): J44.9 - CHRONIC OBSTRUCTIVE PULMONARY DISEASE, UNSPECIFIED Qualifiers: COPD type: unspecified COPD Qualified Code(s): J44.9 - Chronic obstructive pulmonary disease, unspecified (4) Acute exacerbation of chronic obstructive pulmonary disease (COPD) Code(s): J44.1 - CHRONIC OBSTRUCTIVE PULMONARY DISEASE W (ACUTE) EXACERBATION (5) Cough Code(s): R05 - COUGH (6) Diabetes mellitus Code(s): E11.9 - TYPE 2 DIABETES MELLITUS WITHOUT COMPLICATIONS (7) Elevated troponin Code(s): R74.8 - ABNORMAL LEVELS OF OTHER SERUM ENZYMES (8) H/O heart artery stent Code(s): Z95.5 - PRESENCE OF CORONARY ANGIOPLASTY IMPLANT AND GRAFT (9) Pneumonia Code(s): J18.9 - PNEUMONIA, UNSPECIFIED ORGANISM Qualifiers: Pneumonia type: due to unspecified organism Laterality: left Lung location: lower lobe of lung Qualified Code(s): J18.1 - Lobar pneumonia, unspecified organism (10) Dyspnea Code(s): R06.00 - DYSPNEA, UNSPECIFIED Assessment/Plan IMP DYSPNEA IMPROVING PNEUMONIA ACUTE ON CHRONIC CHF ASHD S/P STENT AFIB S/P RECENT ABLATION DM + TROPONIN PLAN IV ANTIBIOTICS PER ID LASIX TREND TROPONINS O2 INHALED BRONCHODILATORS CHEST CT F/U CHEST X-RAYS DAILY WTS DR GOMEZ Problem List - Problems (1) Atrial fibrillation Code(s): I48.91 - UNSPECIFIED ATRIAL FIBRILLATION Qualifiers: Atrial fibrillation type: chronic Qualified Code(s): I48.2 - Chronic atrial fibrillation (2) CHF (congestive heart failure) Code(s): I50.9 - HEART FAILURE, UNSPECIFIED Qualifiers: Congestive heart failure type: unspecified congestive heart failure type Congestive heart failure chronicity: acute on chronic Qualified Code(s): I50.9 - Heart failure, unspecified (3) COPD (chronic obstructive pulmonary disease) Code(s): J44.9 - CHRONIC OBSTRUCTIVE PULMONARY DISEASE, UNSPECIFIED Qualifiers: COPD type: unspecified COPD Qualified Code(s): J44.9 - Chronic obstructive pulmonary disease, unspecified (4) Acute exacerbation of chronic obstructive pulmonary disease (COPD) Code(s): J44.1 - CHRONIC OBSTRUCTIVE PULMONARY DISEASE W (ACUTE) EXACERBATION (5) Cough Code(s): R05 - COUGH (6) Diabetes mellitus Code(s): E11.9 - TYPE 2 DIABETES MELLITUS WITHOUT COMPLICATIONS (7) Elevated troponin Code(s): R74.8 - ABNORMAL LEVELS OF OTHER SERUM ENZYMES (8) H/O heart artery stent Code(s): Z95.5 - PRESENCE OF CORONARY ANGIOPLASTY IMPLANT AND GRAFT (9) Pneumonia Code(s): J18.9 - PNEUMONIA, UNSPECIFIED ORGANISM Qualifiers: Pneumonia type: due to unspecified organism Laterality: left Lung location: lower lobe of lung Qualified Code(s): J18.1 - Lobar pneumonia, unspecified organism (10) Dyspnea Code(s): R06.00 - DYSPNEA, UNSPECIFIED
--- NOTE | 2017-10-28 18:27 | PN ---
Progress Note, Physician Chief Complaint: Patient has improved SOB. No recurrent chest pain or palpitation. Tele shows persistent atrial flutter with improved VR control and rare VPCs. History of Present Illness: 62 year-old man with a PMH of paroxysmal atrial fibrillation, s/p atrial fibrillation in 10/04/2017 at [facility], COPD, HTN, HLD, DM and CAD s/p LAD PCI/stent in 2014, NSTEMI s/p cardiac cath at [facility] 05/07/2017 which revealed patent LAD stent, non-obstructive LCx and RCA. But the small ramus has severre 95% stenosis, not amendable for PCI because of the size of the vessel admitted 2017 for pneumonia and CHF. The patient had SOB, PICKETT, orthopnea, and a productive cough x 2-3 days. Patient reports having increased SOB, worse after taking 5 steps. Patient reports palpitation, chest tightness and b/l leg swelling x 4 months worse over the last few days. Patient denies fever, dizziness, RUIZ, CP, AP, N/V/D, constipation , dysuria. He was seen by Pulmonary for pneumonia and receiving Lasix for CHF. Tele shows atrial flutter with variable AV block and rapid VR. He is ruling in for NSTEMI. - Current Medication List Current Medications: Active Medications Aspirin (Asa -) 81 mg PO DAILY [facility] Last Admin: 10/28/17 10:05 Dose: 81 mg Atorvastatin Calcium (Lipitor -) 10 mg PO HS [facility] Last Admin: 10/27/17 21:36 Dose: 10 mg Digoxin (Lanoxin -) 0.25 mg PO DAILY [facility] Last Admin: 10/28/17 10:34 Dose: 0.25 mg Furosemide (Lasix Injection -) 40 mg IVPUSH BID@0600,1400 [facility] Last Admin: 10/28/17 14:39 Dose: 40 mg Gabapentin (Neurontin -) 300 mg PO DAILY [facility] Last Admin: 10/28/17 10:05 Dose: 300 mg Glimepiride (Amaryl -) 4 mg PO DAILY@0700 [facility] Last Admin: 10/28/17 06:25 Dose: 4 mg Ceftriaxone Sodium 1 gm/ (Dextrose) 50 mls @ 100 mls/hr IVPB DAILY [facility] Stop: 10/30/17 10:59 Last Admin: 10/28/17 10:06 Dose: 100 mls/hr Insulin Aspart (Novolog Vial Sliding Scale -) 1 vial SQ ACHS [facility] PRN Reason: Protocol Last Admin: 10/28/17 16:50 Dose: 6 units Insulin Detemir (Levemir Vial) 15 units SQ BID [facility] Last Admin: 10/28/17 10:04 Dose: 15 units Ipratropium [place] (Atrovent 0.02% Nebulizer -) 1 amp NEB QIDR [facility] Last Admin: 10/28/17 12:00 Dose: 1 amp Melatonin (Melatonin) 5 mg PO HS PRN PRN Reason: INSOMNIA Last Admin: 10/28/17 00:29 Dose: 5 mg Methylprednisolone Sodium Succinate (Solu-Medrol -) 40 mg IVPUSH Q6H-IV [facility] Last Admin: 10/28/17 15:17 Dose: 40 mg Metoprolol Succinate (Toprol Xl -) 150 mg PO DAILY [facility] Last Admin: 10/28/17 10:34 Dose: 150 mg Rivaroxaban (Xarelto -) 20 mg PO DAILY [facility] Last Admin: 10/28/17 10:05 Dose: 20 mg Tamsulosin HCl (Flomax -) 0.4 mg PO DAILY@0830 [facility] Last Admin: 10/28/17 10:05 Dose: 0.4 mg Tramadol HCl (Ultram -) 50 mg PO Q6H PRN Last Admin: 10/27/17 21:46 Dose: 50 mg - Objective Vital Signs: Vital Signs Temperature 97.8 F 10/28/17 17:00 Pulse Rate 99 H 10/28/17 17:00 Respiratory Rate 20 10/28/17 17:00 Blood Pressure 144/96 10/28/17 17:00 O2 Sat by Pulse Oximetry (%) 93 L 10/28/17 09:00 Constitutional: Yes: Well Nourished, No Distress, Calm Eyes: Yes: Conjunctiva Clear, EOM Intact HENT: Yes: Atraumatic, Normocephalic Neck: Yes: Supple, Trachea Midline Cardiovascular: Yes: Pulse Irregular Respiratory: Yes: Regular, Diminished, Rhonchi Gastrointestinal: Yes: Normal Bowel Sounds, Soft ...Rectal Exam: Yes: Deferred Edema: Yes Edema: LLE: 1+, RLE: 1+ Peripheral Pulses WNL: Yes Labs: CBC, BMP 10/28/17 06:17 10/28/17 06:17 Assessment/Plan 62 year-old man with a PMH of paroxysmal atrial fibrillation, s/p atrial fibrillation in 10/04/2017 at [facility], COPD, HTN, HLD, DM and CAD s/p LAD PCI/stent in 2014, NSTEMI s/p cardiac cath at [facility] 05/07/2017 which revealed patent LAD stent, non-obstructive LCx and RCA. But the small ramus has severre 95% stenosis, not amendable for PCI because of the size of the vessel admitted 2017 for pneumonia and CHF. He was seen by Pulmonary for pneumonia and receiving Lasix for CHF. Tele shows atrial flutter with variable AV block and rapid VR. He is ruling in for NSTEMI. 1) CHF, likely acute diastolic CHF with physical signs of fluid overload and elevated pro-BNP. Increase IV Lasix to 40 mg q12 hours to keep Os > Is. Monitor electrolytes and renal function. Obtain an echo 2) Atrial fibrillation and flutter: S/p atrial fibrillation in 10/04/2017 at [facility]. Now he has atrial flutter with improved VR control. VR control: Increase Metoprolol succinate to 200 mg daily Continue Digoxin 0.25 mg daily for 4 days and decrease it 0.125 mg daily Continue Xarelto for stroke prevention. 3) NSTEMI: likely type II OR with underline CAD with tight small ramus. Conservative cardiac care. Add Imdur 30 mg daily. Continue Aspirin 81 mg daily, Metoprolol and restart simvastatin. VR control as above. We will follow with you.
[2017-10-28] MEDS: traMADol HCL 50 MG TABLET PO PRN (21:29)
[2017-10-28] MEDS: ATORVASTATIN CA 10 MG TABLET (FP) PO SCH (21:29)
[2017-10-28] MEDS ORDERED: INSULIN (NOVOLOG) ASPART 100 UNITS/ML 10ML VIAL SQ ONE (22:15)
--- NOTE | 2017-10-29 00:34 | CONSULT ---
Consult Consult Specialty:: endocrine Referred by:: dr.iyad hobson Reason for Consultation:: diabetes mellitus - History of Present Illness Chief Complaint: high sugars History of Present Illness: 62 y/o man with a significant past medical history of Afib (on Eliquis), COPD, HTN, HLD, DM. Who presents to the ED with SOB, PICKETT, Orthopnea, and a productive cough x 2-3 days. Patient reports having increased SOB, worse after taking 5 steps. Patient reports having chest tightness has had higher sugars,. in recent days despite checking sugar levels, he has tried adjusting blood sugars but has not succeeded - History Source History Provided By: Patient Limitations to Obtaining History: Clinical Condition - Past Medical History Cardio/Vascular: Yes: AFIB (paroxysmal), CAD, CHF, HTN, Hyperlipdemia Endocrine: Yes: Diabetes Mellitus - Past Surgical History Past Surgical History: Yes: Cholecystectomy, Hernia Repair (x2), Stent - Alcohol/Substance Use Hx Alcohol Use: No History of Substance Use: reports: None - Smoking History Smoking history: Former smoker Have you smoked in the past 12 months: Yes Aproximately how many cigarettes per day: 4 If you are a former smoker, when did you quit?: 04/2017 - Social History ADL: Independent 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, 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 History of Recent Travel: No Home Medications - Allergies Allergies/Adverse Reactions: Allergies Allergy/AdvReac Type Severity Reaction Status Date / Time No Known Allergies Allergy Verified 10/26/17 12:21 - Home Medications Home Medications: Ambulatory Orders Insulin Glargine,Hum.rec.anlog [Basaglar Kwikpen U-100] 30 unit SQ HS 07/09/17 Aspirin [ASA -] 81 mg PO DAILY #0 tab 07/11/17 Glimepiride [Amaryl -] 4 mg PO DAILY@0700 #0 tab 07/11/17 Simvastatin [Zocor -] 20 mg PO DAILY #0 tab 07/11/17 Furosemide [Lasix] 40 mg PO BID 10/26/17 Gabapentin 300 mg PO DAILY 10/26/17 Insulin (Novolog 70/30) [Novolog Mix 70/30 Vial -] 10 units SQ BIDAC 10/26/17 Metoprolol Succinate [Toprol XL -] 100 mg PO DAILY 10/26/17 Rivaroxaban [Xarelto -] 20 mg PO DAILY 10/26/17 Sacubitril/Valsartan [Entresto 24 mg-26 mg Tablet] 1 each PO BID 10/26/17 Tamsulosin HCl [Flomax -] 0.4 mg PO DAILY 10/26/17 Family Disease History - Family Disease History Family Disease History: Other: Father (dialysis) Review of Systems - Review of Systems Constitutional: reports: Lethargy, Loss of Appetite, Weakness Eyes: reports: Blurred Vision HENT: reports: No Symptoms Neck: reports: No Symptoms Cardiovascular: reports: Shortness of Breath Respiratory: reports: Exercise Intolerance, SOB on Exertion Gastrointestinal: reports: No Symptoms Genitourinary: reports: No Symptoms Breasts: reports: No Symptoms Reported Musculoskeletal: reports: Muscle Pain, Muscle Weakness Integumentary: reports: No Symptoms Neurological: reports: Unsteady Gait, Weakness Physical Exam Vital Signs: Vital Signs Temperature 97.4 F L 10/28/17 20:47 Pulse Rate 97 H 10/28/17 20:47 Respiratory Rate 20 10/28/17 20:47 Blood Pressure 147/92 10/28/17 20:47 O2 Sat by Pulse Oximetry (%) 97 10/28/17 20:45 Constitutional: Yes: Anxious Eyes: Yes: EOM Intact HENT: Yes: Normocephalic Neck: Yes: Trachea Midline Cardiovascular: Yes: Regular Rate and Rhythm Respiratory: Yes: CTA Bilaterally Gastrointestinal: Yes: Normal Bowel Sounds ...Rectal Exam: Yes: Deferred Renal/: Yes: WNL Breast(s): Yes: WNL Musculoskeletal: Yes: Joint Stiffness, Muscle Pain, Muscle Weakness Extremities: Yes: Delayed Capillary Refill, Erythema Edema: Yes Edema: LLE: 2+, RLE: 2+ Peripheral Pulses WNL: Yes Labs: CBC, BMP 10/28/17 06:17 10/28/17 06:17 Problem List - Problems (1) Atrial fibrillation Code(s): I48.91 - UNSPECIFIED ATRIAL FIBRILLATION Qualifiers: Atrial fibrillation type: chronic Qualified Code(s): I48.2 - Chronic atrial fibrillation (2) COPD (chronic obstructive pulmonary disease) Code(s): J44.9 - CHRONIC OBSTRUCTIVE PULMONARY DISEASE, UNSPECIFIED Qualifiers: COPD type: unspecified COPD Qualified Code(s): J44.9 - Chronic obstructive pulmonary disease, unspecified (3) Diabetes mellitus Code(s): E11.9 - TYPE 2 DIABETES MELLITUS WITHOUT COMPLICATIONS (4) Dyspnea Code(s): R06.00 - DYSPNEA, UNSPECIFIED (5) Elevated troponin Code(s): R74.8 - ABNORMAL LEVELS OF OTHER SERUM ENZYMES Assessment/Plan Current Active Problems Atrial fibrillation (Acute) CHF (congestive heart failure) (Acute) COPD (chronic obstructive pulmonary disease) (Acute) diabetes mellitus hyperglycemia insulin resistant hyperinsulinemia copd,related steroid sensitivity Laboratory Results - last 24 hr 10/27/17 10/28/17 10/28/17 09:00 04:28 06:04 WBC RBC Hgb Hct MCV MCH MCHC RDW Plt Count MPV Neutrophils % Lymphocytes % Monocytes % Eosinophils % Basophils % Sodium Potassium Chloride Carbon Dioxide Anion Gap BUN Creatinine Creat Clearance w eGFR POC Glucometer 261 296 Random Glucose Calcium Total Bilirubin AST ALT Alkaline Phosphatase Creatine Kinase Troponin I Total Protein Albumin Hepatitis C Antibody 0.1 10/28/17 10/28/17 10/28/17 06:17 06:17 11:50 WBC 20.0 H D RBC 4.63 Hgb 11.3 L Hct 35.0 L MCV 75.7 L MCH 24.5 L MCHC 32.3 RDW 18.1 H Plt Count 419 MPV 9.7 Neutrophils % 92.2 H Lymphocytes % 5.5 L D Monocytes % 2.2 L Eosinophils % 0.0 Basophils % 0.1 Sodium 135 L Potassium 4.4 Chloride 98 Carbon Dioxide 31 D Anion Gap 6 L BUN 35 H Creatinine 1.1 Creat Clearance w eGFR > 60 POC Glucometer 396 Random Glucose 278 H D Calcium 8.3 L Total Bilirubin 4.2 H AST 15 D ALT 35 D Alkaline Phosphatase 166 H Creatine Kinase 148 Troponin I 0.14 H Total Protein 5.8 L Albumin 2.2 L Hepatitis C Antibody 10/28/17 10/28/17 10/28/17 16:48 21:20 22:01 WBC RBC Hgb Hct MCV MCH MCHC RDW Plt Count MPV Neutrophils % Lymphocytes % Monocytes % Eosinophils % Basophils % Sodium Potassium Chloride Carbon Dioxide Anion Gap BUN Creatinine Creat Clearance w eGFR POC Glucometer 293 422 426 Random Glucose Calcium Total Bilirubin AST ALT Alkaline Phosphatase Creatine Kinase Troponin I Total Protein Albumin Hepatitis C Antibody plan: bgm qid novolog insulin coverage novolog 70/30 bid dosing levemir 20 unit bid dc amaryl
[2017-10-29] MEDS: methylPREDNISolone NA SUCC 40 MG/1 ML VIAL IVPUSH SCH ×3 (03:46→17:25)
[2017-10-29] MEDS: FUROSEMIDE 40 MG/4 ML INJECTABLE VIAL IVPUSH SCH ×2 (05:25→14:47)
[2017-10-29] MEDS: METOPROLOL SUCCINATE 100 MG TAB.SR.24H (FP) PO SCH ×2 (06:14→11:31)
[2017-10-29] MEDS: INSULIN (NOVOLOG MIX 70/30) 100 UNITS/ML MDV SQ SCH ×2 (06:16→17:25)
[2017-10-29] MEDS: INSULIN SLIDING SCALE (NOVOLOG) 1 VIAL SQ SCH ×5 (06:21→21:53)
[2017-10-29] MEDS: IPRATROPIUM BR 0.02% 0.5 MG/2.5 ML VIAL.NEB. NEB SCH ×3 (06:53→16:40)
[2017-10-29] MEDS ORDERED: PT OWN MED DRAWER 7, Y5N ONE (09:42)
[2017-10-29] MEDS ORDERED: ISOSORBIDE MONONITRATE 30 MG TAB.SR.24H (FP) PO SCH (10:00)
[2017-10-29] MEDS: GABAPENTIN 300 MG CAPSULE (FP) PO SCH (10:21)
[2017-10-29] MEDS: ASPIRIN 81 MG CHEWABLE TABLETS PO SCH (10:22)
[2017-10-29] MEDS: CEFTRIAXONE 1 GM in DEXTROSE 5%-WATER - 50 ML IVPB SCH (10:22)
[2017-10-29] MEDS: RIVAROXABAN 20 MG TABLET PO SCH (10:22)
[2017-10-29] MEDS: TAMSULOSIN HCL 0.4 MG CAP.ER.24H (FP) PO SCH (10:22)
[2017-10-29] MEDS: DIGOXIN 0.25 MG TABLET (FP) PO SCH (10:23)
[2017-10-29] MEDS: SACUBITRIL/VALSARTAN 24 MG-26 MG TABLET PO SCH ×2 (10:23→21:51)
--- NOTE | 2017-10-29 11:24 | PN ---
Progress Note, Physician Chief Complaint: paTIENT SEEN GETTING nebulizer treatment says his breathing is slightly better - Current Medication List Current Medications: Active Medications Aspirin (Asa -) 81 mg PO DAILY [facility] Last Admin: 10/29/17 10:22 Dose: 81 mg Atorvastatin Calcium (Lipitor -) 10 mg PO HS [facility] Last Admin: 10/28/17 21:29 Dose: 10 mg Digoxin (Lanoxin -) 0.25 mg PO DAILY [facility] Last Admin: 10/29/17 10:23 Dose: 0.25 mg Furosemide (Lasix Injection -) 40 mg IVPUSH BID@0600,1400 [facility] Last Admin: 10/29/17 05:25 Dose: 40 mg Gabapentin (Neurontin -) 300 mg PO DAILY [facility] Last Admin: 10/29/17 10:21 Dose: 300 mg Ceftriaxone Sodium 1 gm/ (Dextrose) 50 mls @ 100 mls/hr IVPB DAILY [facility] Stop: 10/30/17 10:59 Last Admin: 10/29/17 10:22 Dose: 100 mls/hr Insulin Aspart (Novolog Vial Sliding Scale -) 1 vial SQ ACHS [facility] PRN Reason: Protocol Last Admin: 10/29/17 06:40 Dose: 6 units Insulin Aspart (Novolog Mix 70/30 Vial) 20 units SQ BIDAC [facility] Last Admin: 10/29/17 06:16 Dose: 20 units Insulin Detemir (Levemir Vial) 15 units SQ BID [facility] Last Admin: 10/28/17 22:13 Dose: 15 units Ipratropium [place] (Atrovent 0.02% Nebulizer -) 1 amp NEB QIDR [facility] Last Admin: 10/29/17 06:53 Dose: 1 amp Isosorbide Mononitrate (Imdur -) 30 mg PO DAILY [facility] Melatonin (Melatonin) 5 mg PO PRN PRN Reason: INSOMNIA Last Admin: 10/28/17 23:19 Dose: 5 mg Methylprednisolone Sodium Succinate (Solu-Medrol -) 40 mg IVPUSH Q8H-IV [facility] Metoprolol Succinate (Toprol Xl -) 200 mg PO DAILY [facility] Metoprolol Succinate (Toprol Xl -) 50 mg PO ONCE ONE Stop: 10/29/17 11:19 Rivaroxaban (Xarelto -) 20 mg PO DAILY [facility] Last Admin: 10/29/17 10:22 Dose: 20 mg Tamsulosin HCl (Flomax -) 0.4 mg PO DAILY@0830 [facility] Last Admin: 10/29/17 10:22 Dose: 0.4 mg Tramadol HCl (Ultram -) 50 mg PO Q6H PRN Last Admin: 10/28/17 21:29 Dose: 50 mg - Objective Vital Signs: Vital Signs Temperature 98.2 F 10/29/17 09:00 Pulse Rate 98 H 10/29/17 10:23 Respiratory Rate 16 10/29/17 09:00 Blood Pressure 154/86 10/29/17 09:00 O2 Sat by Pulse Oximetry (%) 97 10/28/17 20:45 Constitutional: Yes: Calm Cardiovascular: Yes: Pulse Irregular, S1, S2 Respiratory: Yes: Diminished Gastrointestinal: Yes: Normal Bowel Sounds, Soft Neurological: Yes: Alert, Oriented Labs: CBC, BMP 10/28/17 06:17 10/28/17 06:17 Problem List - Problems (1) Atrial fibrillation Assessment/Plan: digoxin o.25mg daily f or another 2 days then 0.125mg daily on xarelto on BB Code(s): I48.91 - UNSPECIFIED ATRIAL FIBRILLATION Qualifiers: Atrial fibrillation type: chronic Qualified Code(s): I48.2 - Chronic atrial fibrillation (2) CHF (congestive heart failure) Assessment/Plan: iv lasix Code(s): I50.9 - HEART FAILURE, UNSPECIFIED Qualifiers: Congestive heart failure type: unspecified congestive heart failure type Congestive heart failure chronicity: acute on chronic Qualified Code(s): I50.9 - Heart failure, unspecified (3) COPD (chronic obstructive pulmonary disease) Assessment/Plan: nebulizer Ct chest done - report is pending pulmo non baord steroids taper Code(s): J44.9 - CHRONIC OBSTRUCTIVE PULMONARY DISEASE, UNSPECIFIED Qualifiers: COPD type: unspecified COPD Qualified Code(s): J44.9 - Chronic obstructive pulmonary disease, unspecified (4) Elevated troponin Assessment/Plan: imdur started atorvastatin ,aspirin and BB increased to 200mg Code(s): R74.8 - ABNORMAL LEVELS OF OTHER SERUM ENZYMES (5) Cough Assessment/Plan: pneumonia on rocephin day [address] report pending Code(s): R05 - COUGH
--- NOTE | 2017-10-29 11:26 | PN ---
Progress Note, Physician History of Present Illness: PULMONARY ALERT,LESS DYSPNEIC,-CP - Current Medication List Current Medications: Active Medications Aspirin (Asa -) 81 mg PO DAILY [facility] Last Admin: 10/29/17 10:22 Dose: 81 mg Atorvastatin Calcium (Lipitor -) 10 mg PO HS [facility] Last Admin: 10/28/17 21:29 Dose: 10 mg Digoxin (Lanoxin -) 0.25 mg PO DAILY [facility] Last Admin: 10/29/17 10:23 Dose: 0.25 mg Furosemide (Lasix Injection -) 40 mg IVPUSH BID@0600,1400 [facility] Last Admin: 10/29/17 05:25 Dose: 40 mg Gabapentin (Neurontin -) 300 mg PO DAILY [facility] Last Admin: 10/29/17 10:21 Dose: 300 mg Ceftriaxone Sodium 1 gm/ (Dextrose) 50 mls @ 100 mls/hr IVPB DAILY [facility] Stop: 10/30/17 10:59 Last Admin: 10/29/17 10:22 Dose: 100 mls/hr Insulin Aspart (Novolog Vial Sliding Scale -) 1 vial SQ ACHS [facility] PRN Reason: Protocol Last Admin: 10/29/17 06:40 Dose: 6 units Insulin Aspart (Novolog Mix 70/30 Vial) 20 units SQ BIDAC [facility] Last Admin: 10/29/17 06:16 Dose: 20 units Insulin Detemir (Levemir Vial) 15 units SQ BID [facility] Last Admin: 10/28/17 22:13 Dose: 15 units Ipratropium [place] (Atrovent 0.02% Nebulizer -) 1 amp NEB QIDR [facility] Last Admin: 10/29/17 06:53 Dose: 1 amp Isosorbide Mononitrate (Imdur -) 30 mg PO DAILY [facility] Melatonin (Melatonin) 5 mg PO PRN PRN Reason: INSOMNIA Last Admin: 10/28/17 23:19 Dose: 5 mg Methylprednisolone Sodium Succinate (Solu-Medrol -) 40 mg IVPUSH Q8H-IV [facility] Metoprolol Succinate (Toprol Xl -) 200 mg PO DAILY [facility] Metoprolol Succinate (Toprol Xl -) 50 mg PO ONCE ONE Stop: 10/29/17 11:19 Rivaroxaban (Xarelto -) 20 mg PO DAILY [facility] Last Admin: 10/29/17 10:22 Dose: 20 mg Tamsulosin HCl (Flomax -) 0.4 mg PO DAILY@0830 [facility] Last Admin: 10/29/17 10:22 Dose: 0.4 mg Tramadol HCl (Ultram -) 50 mg PO Q6H PRN Last Admin: 10/28/17 21:29 Dose: 50 mg - Objective Vital Signs: Vital Signs Temperature 98.2 F 10/29/17 09:00 Pulse Rate 98 H 10/29/17 10:23 Respiratory Rate 16 10/29/17 09:00 Blood Pressure 154/86 10/29/17 09:00 O2 Sat by Pulse Oximetry (%) 97 10/28/17 20:45 Constitutional: Yes: Well Nourished, Calm Eyes: Yes: WNL HENT: Yes: WNL Neck: Yes: WNL Cardiovascular: Yes: Pulse Irregular, S1, S2 Respiratory: Yes: Rales (BIBASILAR RALES ,DIMINISHED BS R BASE) Gastrointestinal: Yes: Normal Bowel Sounds, Soft Extremities: Yes: WNL Edema: Yes Edema: LLE: Trace, RLE: Trace Labs: CBC, BMP 10/28/17 06:17 10/28/17 06:17 - ....Imaging Cat Scan: Report Reviewed, Image Reviewed (R PLEURAL EFFUSION) Problem List - Problems (1) Atrial fibrillation Code(s): I48.91 - UNSPECIFIED ATRIAL FIBRILLATION Qualifiers: Qualified Code(s): I48.2 - Chronic atrial fibrillation (2) CHF (congestive heart failure) Code(s): I50.9 - HEART FAILURE, UNSPECIFIED Qualifiers: Qualified Code(s): I50.9 - Heart failure, unspecified (3) COPD (chronic obstructive pulmonary disease) Code(s): J44.9 - CHRONIC OBSTRUCTIVE PULMONARY DISEASE, UNSPECIFIED Qualifiers: Qualified Code(s): J44.9 - Chronic obstructive pulmonary disease, unspecified (4) Acute exacerbation of chronic obstructive pulmonary disease (COPD) Code(s): J44.1 - CHRONIC OBSTRUCTIVE PULMONARY DISEASE W (ACUTE) EXACERBATION (5) Cough Code(s): R05 - COUGH (6) Diabetes mellitus Code(s): E11.9 - TYPE 2 DIABETES MELLITUS WITHOUT COMPLICATIONS (7) Elevated troponin Code(s): R74.8 - ABNORMAL LEVELS OF OTHER SERUM ENZYMES (8) H/O heart artery stent Code(s): Z95.5 - PRESENCE OF CORONARY ANGIOPLASTY IMPLANT AND GRAFT (9) Pneumonia Code(s): J18.9 - PNEUMONIA, UNSPECIFIED ORGANISM Qualifiers: Qualified Code(s): J18.1 - Lobar pneumonia, unspecified organism (10) Dyspnea Code(s): R06.00 - DYSPNEA, UNSPECIFIED Assessment/Plan IMP DYSPNEA IMPROVING PNEUMONIA R PLEURAL EFFUSION ACUTE ON CHRONIC CHF ASHD S/P STENT AFIB S/P RECENT ABLATION DM + TROPONIN PLAN ANTIBIOTICS PER ID LASIX TREND TROPONINS STEROID TAPER O2 INHALED BRONCHODILATORS F/U CHEST X-RAYS DAILY WTS DR GOMEZ Problem List - Problems (1) Atrial fibrillation Code(s): I48.91 - UNSPECIFIED ATRIAL FIBRILLATION Qualifiers: Atrial fibrillation type: chronic Qualified Code(s): I48.2 - Chronic atrial fibrillation (2) CHF (congestive heart failure) Code(s): I50.9 - HEART FAILURE, UNSPECIFIED Qualifiers: Congestive heart failure type: unspecified congestive heart failure type Congestive heart failure chronicity: acute on chronic Qualified Code(s): I50.9 - Heart failure, unspecified (3) COPD (chronic obstructive pulmonary disease) Code(s): J44.9 - CHRONIC OBSTRUCTIVE PULMONARY DISEASE, UNSPECIFIED Qualifiers: COPD type: unspecified COPD Qualified Code(s): J44.9 - Chronic obstructive pulmonary disease, unspecified (4) Acute exacerbation of chronic obstructive pulmonary disease (COPD) Code(s): J44.1 - CHRONIC OBSTRUCTIVE PULMONARY DISEASE W (ACUTE) EXACERBATION (5) Cough Code(s): R05 - COUGH (6) Diabetes mellitus Code(s): E11.9 - TYPE 2 DIABETES MELLITUS WITHOUT COMPLICATIONS (7) Elevated troponin Code(s): R74.8 - ABNORMAL LEVELS OF OTHER SERUM ENZYMES (8) H/O heart artery stent Code(s): Z95.5 - PRESENCE OF CORONARY ANGIOPLASTY IMPLANT AND GRAFT (9) Pneumonia Code(s): J18.9 - PNEUMONIA, UNSPECIFIED ORGANISM Qualifiers: Pneumonia type: due to unspecified organism Laterality: left Lung location: lower lobe of lung Qualified Code(s): J18.1 - Lobar pneumonia, unspecified organism (10) Dyspnea Code(s): R06.00 - DYSPNEA, UNSPECIFIED
--- NOTE | 2017-10-29 11:26 | PN ---
Progress Note (short form) - Note Progress Note: ID Clinical improvement noted and discussed with Dr Lund who feels findings more c /s congestive heart failure On Ceftriaxone day 3 Selected Entries 10/29/17 09:00 Temperature 98.2 F Pulse Rate 102 H Respiratory 16 Rate Blood Pressure 154/86 Bilateral rales Microbiology 10/27/17 12:25 Nasopharyngeal Swab Influenza Types A,B Antigen (KRIS) - Final 10/27/17 12:25 Nasopharyngeal Swab - Final 10/27/17 06:50 Urine For Antigen Detection Legionella Antigen - Final 10/27/17 06:50 Urine For Antigen Detection Streptococcus pneumoniae Antigen (M - Final 10/27/17 06:50 Urine - Urine Clean Catch Urine Culture - Final NO GROWTH OBTAINED Laboratory Tests 10/28/17 06:17 WBC 20.0 H D Hgb 11.3 L Plt Count [address] reviewed shows pleural efffusion no infiltrate seen No fever WBC up steroids Plan WIll stop antibiotics Shanon MORE Problem List - Problems (1) Atrial fibrillation Code(s): I48.91 - UNSPECIFIED ATRIAL FIBRILLATION Qualifiers: Qualified Code(s): I48.2 - Chronic atrial fibrillation (2) CHF (congestive heart failure) Code(s): I50.9 - HEART FAILURE, UNSPECIFIED Qualifiers: Qualified Code(s): I50.9 - Heart failure, unspecified (3) COPD (chronic obstructive pulmonary disease) Code(s): J44.9 - CHRONIC OBSTRUCTIVE PULMONARY DISEASE, UNSPECIFIED Qualifiers: Qualified Code(s): J44.9 - Chronic obstructive pulmonary disease, unspecified (4) Pneumonia Code(s): J18.9 - PNEUMONIA, UNSPECIFIED ORGANISM Qualifiers: Qualified Code(s): J18.1 - Lobar pneumonia, unspecified organism
[2017-10-29] MEDS: INSULIN DETEMIR 100 UNITS/ML MDV SQ SCH ×2 (11:36→21:53)
[2017-10-29] MEDS: traMADol HCL 50 MG TABLET PO PRN ×2 (11:45→21:50)
[2017-10-29] MEDS ORDERED: METOPROLOL SUCCINATE 50 MG TAB.SR.24H (FP) PO ONE (12:00)
--- NOTE | 2017-10-29 15:05 | PN ---
Progress Note, Physician Chief Complaint: sob, edema History of Present Illness: 62 year-old man with a PMH of paroxysmal atrial fibrillation, s/p atrial fibrillation in 10/04/2017 at [facility], COPD, HTN, HLD, DM and CAD s/p LAD PCI/stent in 2014, NSTEMI s/p cardiac cath at [facility] 05/07/2017 which revealed patent LAD stent, non-obstructive LCx and RCA. But the small ramus has severre 95% stenosis, not amendable for PCI because of the size of the vessel admitted 2017 for pneumonia and CHF. He was seen by Pulmonary for pneumonia and receiving Lasix for CHF. Tele shows atrial flutter with variable AV block and rapid VR. He is ruling in for NSTEMI. - Current Medication List Current Medications: Active Medications Aspirin (Asa -) 81 mg PO DAILY [facility] Last Admin: 10/29/17 10:22 Dose: 81 mg Atorvastatin Calcium (Lipitor -) 10 mg PO HS [facility] Last Admin: 10/28/17 21:29 Dose: 10 mg Digoxin (Lanoxin -) 0.25 mg PO DAILY [facility] Last Admin: 10/29/17 10:23 Dose: 0.25 mg Furosemide (Lasix Injection -) 40 mg IVPUSH BID@0600,1400 [facility] Last Admin: 10/29/17 14:47 Dose: 40 mg Gabapentin (Neurontin -) 300 mg PO DAILY [facility] Last Admin: 10/29/17 10:21 Dose: 300 mg Ceftriaxone Sodium 1 gm/ (Dextrose) 50 mls @ 100 mls/hr IVPB DAILY [facility] Stop: 10/30/17 10:59 Last Admin: 10/29/17 10:22 Dose: 100 mls/hr Insulin Aspart (Novolog Vial Sliding Scale -) 1 vial SQ [facility] PRN Reason: Protocol Last Admin: 10/29/17 11:37 Dose: 6 units Insulin Aspart (Novolog Mix 70/30 Vial) 20 units SQ BIDAC [facility] Last Admin: 10/29/17 06:16 Dose: 20 units Insulin Detemir (Levemir Vial) 15 units SQ BID [facility] Last Admin: 10/29/17 11:36 Dose: 15 units Ipratropium [place] (Atrovent 0.02% Nebulizer -) 1 amp NEB QIDR [facility] Last Admin: 10/29/17 11:10 Dose: 1 amp Isosorbide Mononitrate (Imdur -) 30 mg PO DAILY [facility] Last Admin: 10/29/17 11:36 Dose: 30 mg Melatonin (Melatonin) 5 mg PO HS PRN PRN Reason: INSOMNIA Last Admin: 10/28/17 23:19 Dose: 5 mg Methylprednisolone Sodium Succinate (Solu-Medrol -) 40 mg IVPUSH Q8H-IV [facility] Metoprolol Succinate (Toprol Xl -) 200 mg PO DAILY [facility] Last Admin: 10/29/17 11:31 Dose: Not Given Rivaroxaban (Xarelto -) 20 mg PO DAILY [facility] Last Admin: 10/29/17 10:22 Dose: 20 mg Tamsulosin HCl (Flomax -) 0.4 mg PO DAILY@0830 [facility] Last Admin: 10/29/17 10:22 Dose: 0.4 mg Tramadol HCl (Ultram -) 50 mg PO Q6H PRN Last Admin: 10/29/17 11:45 Dose: 50 mg - Objective Vital Signs: Vital Signs Temperature 98.2 F 10/29/17 09:00 Pulse Rate 98 H 10/29/17 10:23 Respiratory Rate 16 10/29/17 09:00 Blood Pressure 154/86 10/29/17 09:00 O2 Sat by Pulse Oximetry (%) 96 10/29/17 09:00 Constitutional: Yes: Well Nourished, No Distress Eyes: Yes: Conjunctiva Clear, EOM Intact HENT: Yes: Atraumatic, Normocephalic Neck: Yes: Trachea Midline Cardiovascular: Yes: Pulse Irregular Respiratory: Yes: Rales (bilat bases) Gastrointestinal: Yes: Normal Bowel Sounds, Soft Musculoskeletal: Yes: WNL Extremities: Yes: WNL Edema: Yes Edema: LLE: 2+, RLE: 2+ Peripheral Pulses WNL: Yes Labs: CBC, BMP 10/28/17 06:17 10/28/17 06:17 Problem List - Problems (1) Atrial fibrillation Assessment/Plan: S/p atrial fibrillation in 10/04/2017 at [facility]. Now he has atrial flutter with improved VR control. Increase Metoprolol succinate to 200 mg daily Continue Digoxin 0.25 mg daily for 4 days and decrease it 0.125 mg daily Continue Xarelto for stroke prevention. 3) NSTEMI: likely type II [place] with underline CAD with tight small ramus. Conservative cardiac care. Add Imdur 30 mg daily. Continue Aspirin 81 mg daily, Metoprolol and restart simvastatin. VR control as above. We will follow with you. Code(s): I48.91 - UNSPECIFIED ATRIAL FIBRILLATION Qualifiers: Atrial fibrillation type: chronic Qualified Code(s): I48.2 - Chronic atrial fibrillation (2) CHF (congestive heart failure) Assessment/Plan: 1) CHF, likely acute diastolic CHF with physical signs of fluid overload and elevated pro-BNP. Increase IV Lasix to 40 mg q12 hours to keep Os > Is. Monitor electrolytes and renal function. Obtain an echo Code(s): I50.9 - HEART FAILURE, UNSPECIFIED Qualifiers: Congestive heart failure type: unspecified congestive heart failure type Congestive heart failure chronicity: acute on chronic Qualified Code(s): I50.9 - Heart failure, unspecified (3) Elevated troponin Assessment/Plan: Medical management for now. Echo pending. Code(s): R74.8 - ABNORMAL LEVELS OF OTHER SERUM ENZYMES
[2017-10-29] MEDS ORDERED: ISOSORBIDE MONONITRATE 30 MG TAB.SR.24H (FP) PO ONE (18:30)
[2017-10-29] MEDS ORDERED: INSULIN (NOVOLOG) ASPART 100 UNITS/ML 10ML VIAL ONE (21:30)
[2017-10-29] MEDS: ATORVASTATIN CA 10 MG TABLET (FP) PO SCH (21:51)
[2017-10-29] MEDS: MELATONIN 5 MG TABLETS PO PRN (21:51)
[2017-10-30] MEDS: IPRATROPIUM BR 0.02% 0.5 MG/2.5 ML VIAL.NEB. NEB SCH ×5 (00:10→20:22)
[2017-10-30] MEDS: methylPREDNISolone NA SUCC 40 MG/1 ML VIAL IVPUSH SCH (02:35)
[2017-10-30] MEDS: FUROSEMIDE 40 MG/4 ML INJECTABLE VIAL IVPUSH SCH ×2 (06:36→13:56)
[2017-10-30] MEDS: INSULIN (NOVOLOG MIX 70/30) 100 UNITS/ML MDV SQ SCH ×2 (06:36→17:31)
[2017-10-30] MEDS: INSULIN SLIDING SCALE (NOVOLOG) 1 VIAL SQ SCH ×4 (06:37→22:23)
[2017-10-30 07:41] LABS: ALBUMIN 2.2 g/dl (3.4-5.0); ALK PHOS 142 U/L (45-117); ANION GAP 10 (8-16); BILIRUBIN,TOTAL 3.2 mg/dL (0.2-1.0); BLOOD UREA NITROGEN 32 mg/dL (7-18); CALCIUM 8.5 mg/dL (8.5-10.1); CHLORIDE 97 mmol/L (98-107); CO2 29 mmol/L (21-32); CREATININE 0.9 mg/dL (0.7-1.3); GLUCOSE,RANDOM 276 mg/dL (74-106); POTASSIUM 4.1 mmol/L (3.5-5.1); SGOT/AST 22 U/L (15-37); SGPT/ALT 45 U/L (12-78); SODIUM 136 mmol/L (136-145); TOT PROT 5.5 g/dl (6.4-8.2)
[2017-10-30 07:52] LABS: BASO % 0.2 % (0-2.0); HEMATOCRIT 37.5 % (35.4-49); HEMOGLOBIN 11.7 GM/dL (11.7-16.9); LYMPH % 5.6 % (8-40); MCH 23.7 pg (25.7-33.7); MCHC 31.2 g/dl (32.0-35.9); MEAN PLT VOLUME 9.4 fl (7.5-11.1); MONO % 3.8 % (3.8-10.2); NEUT % 90.4 % (42.8-82.8); PLATELET COUNT 443 K/MM3 (134-434); RBC 4.94 M/mm3 (4.00-5.60); RDW 18.1 % (11.9-15.9); WHITE BLOOD COUNT 19.6 K/mm3 (4.0-10.0)
--- NOTE | 2017-10-30 08:38 | PN ---
Progress Note, Physician - Current Medication List Current Medications: Active Medications Aspirin (Asa -) 81 mg PO DAILY [facility] Last Admin: 10/29/17 10:22 Dose: 81 mg Atorvastatin Calcium (Lipitor -) 10 mg PO HS [facility] Last Admin: 10/29/17 21:51 Dose: 10 mg Digoxin (Lanoxin -) 0.25 mg PO DAILY [facility] Last Admin: 10/29/17 10:23 Dose: 0.25 mg Furosemide (Lasix Injection -) 40 mg IVPUSH BID@0600,1400 [facility] Last Admin: 10/30/17 06:36 Dose: 40 mg Gabapentin (Neurontin -) 300 mg PO DAILY [facility] Last Admin: 10/29/17 10:21 Dose: 300 mg Ceftriaxone Sodium 1 gm/ (Dextrose) 50 mls @ 100 mls/hr IVPB DAILY [facility] Stop: 10/30/17 10:59 Last Admin: 10/29/17 10:22 Dose: 100 mls/hr Insulin Aspart (Novolog Vial Sliding Scale -) 1 vial SQ ACHS [facility] PRN Reason: Protocol Last Admin: 10/30/17 06:37 Dose: 6 units Insulin Aspart (Novolog Mix 70/30 Vial) 20 units SQ BIDAC [facility] Last Admin: 10/30/17 06:36 Dose: 20 units Insulin Detemir (Levemir Vial) 15 units SQ BID [facility] Last Admin: 10/29/17 21:53 Dose: 15 units Ipratropium [place] (Atrovent 0.02% Nebulizer -) 1 amp NEB QIDR [facility] Last Admin: 10/30/17 06:05 Dose: 1 amp Isosorbide Mononitrate (Imdur -) 60 mg PO DAILY [facility] Melatonin (Melatonin) 5 mg PO HS PRN PRN Reason: INSOMNIA Last Admin: 10/29/17 21:51 Dose: 5 mg Metoprolol Succinate (Toprol Xl -) 200 mg PO DAILY [facility] Last Admin: 10/29/17 11:31 Dose: Not Given Rivaroxaban (Xarelto -) 20 mg PO DAILY [facility] Last Admin: 10/29/17 10:22 Dose: 20 mg Tamsulosin HCl (Flomax -) 0.4 mg PO DAILY@0830 [facility] Last Admin: 10/29/17 10:22 Dose: 0.4 mg Tramadol HCl (Ultram -) 50 mg PO Q6H PRN Last Admin: 10/29/17 21:50 Dose: 50 mg - Objective Vital Signs: Vital Signs Temperature 97.0 F L 10/30/17 05:53 Pulse Rate 75 10/30/17 05:53 Respiratory Rate 20 10/30/17 05:53 Blood Pressure 150/98 10/30/17 05:53 O2 Sat by Pulse Oximetry (%) 94 L 10/29/17 21:00 Labs: CBC, BMP 10/30/17 06:50 10/30/17 06:50 Assessment/Plan - Problems (1) Atrial fibrillation Assessment/Plan: digoxin o.25mg daily f or another day then 0.125mg daily on xarelto on BB Code(s): I48.91 - UNSPECIFIED ATRIAL FIBRILLATION Qualifiers: Atrial fibrillation type: chronic Qualified Code(s): I48.2 - Chronic atrial fibrillation (2) CHF (congestive heart failure) Assessment/Plan: iv lasix Code(s): I50.9 - HEART FAILURE, UNSPECIFIED Qualifiers: Congestive heart failure type: unspecified congestive heart failure type Congestive heart failure chronicity: acute on chronic Qualified Code(s): I50.9 - Heart failure, unspecified (3) COPD (chronic obstructive pulmonary disease) Assessment/Plan: nebulizer Ct chest done - report is pending pulmo non baord steroids taper Code(s): J44.9 - CHRONIC OBSTRUCTIVE PULMONARY DISEASE, UNSPECIFIED Qualifiers: COPD type: unspecified COPD Qualified Code(s): J44.9 - Chronic obstructive pulmonary disease, unspecified (4) Elevated troponin Assessment/Plan: imdur started atorvastatin ,aspirin and BB increased to 200mg Code(s): R74.8 - ABNORMAL LEVELS OF OTHER SERUM ENZYMES (5) Cough Assessment/Plan: pneumonia on rocephin day [address] report pending Code(s): R05 - COUGH
[2017-10-30] MEDS: METOPROLOL SUCCINATE 100 MG TAB.SR.24H (FP) PO SCH (09:23)
[2017-10-30] MEDS: ASPIRIN 81 MG CHEWABLE TABLETS PO SCH (09:23)
[2017-10-30] MEDS: SACUBITRIL/VALSARTAN 24 MG-26 MG TABLET PO SCH ×2 (09:24→22:23)
[2017-10-30] MEDS: CEFTRIAXONE 1 GM in DEXTROSE 5%-WATER - 50 ML IVPB SCH (09:24)
[2017-10-30] MEDS: GABAPENTIN 300 MG CAPSULE (FP) PO SCH (09:24)
[2017-10-30] MEDS: ISOSORBIDE MONONITRATE 60 MG TAB.SR.24H (FP) PO SCH (09:24)
[2017-10-30] MEDS: TAMSULOSIN HCL 0.4 MG CAP.ER.24H (FP) PO SCH (09:24)
[2017-10-30] MEDS: DIGOXIN 0.25 MG TABLET (FP) PO SCH (09:24)
[2017-10-30] MEDS: RIVAROXABAN 20 MG TABLET PO SCH (09:25)
[2017-10-30] MEDS ORDERED: predniSONE 10 MG TABLET (UD) PO SCH (10:00)
--- NOTE | 2017-10-30 11:02 | PN ---
Progress Note, Physician History of Present Illness: PULMONARY ALERT,LESS DYSPNEIC,-CP - Current Medication List Current Medications: Active Medications Aspirin (Asa -) 81 mg PO DAILY [facility] Last Admin: 10/30/17 09:23 Dose: 81 mg Atorvastatin Calcium (Lipitor -) 10 mg PO HS [facility] Last Admin: 10/29/17 21:51 Dose: 10 mg Digoxin (Lanoxin -) 0.25 mg PO DAILY [facility] Last Admin: 10/30/17 09:24 Dose: 0.25 mg Furosemide (Lasix Injection -) 40 mg IVPUSH BID@0600,1400 [facility] Last Admin: 10/30/17 06:36 Dose: 40 mg Gabapentin (Neurontin -) 300 mg PO DAILY [facility] Last Admin: 10/30/17 09:24 Dose: 300 mg Insulin Aspart (Novolog Vial Sliding Scale -) 1 vial SQ ACHS [facility] PRN Reason: Protocol Last Admin: 10/30/17 06:37 Dose: 6 units Insulin Aspart (Novolog Mix 70/30 Vial) 20 units SQ BIDAC [facility] Last Admin: 10/30/17 06:36 Dose: 20 units Insulin Detemir (Levemir Vial) 15 units SQ BID [facility] Last Admin: 10/29/17 21:53 Dose: 15 units Ipratropium [place] (Atrovent 0.02% Nebulizer -) 1 amp NEB RQID [facility] Isosorbide Mononitrate (Imdur -) 60 mg PO DAILY [facility] Last Admin: 10/30/17 09:24 Dose: 60 mg Melatonin (Melatonin) 5 mg PO HS PRN PRN Reason: INSOMNIA Last Admin: 10/29/17 21:51 Dose: 5 mg Metoprolol Succinate (Toprol Xl -) 200 mg PO DAILY [facility] Last Admin: 10/30/17 09:23 Dose: 200 mg Prednisone (Deltasone -) 30 mg PO BID [facility] Last Admin: 10/30/17 09:26 Dose: 30 mg Rivaroxaban (Xarelto -) 20 mg PO DAILY [facility] Last Admin: 10/30/17 09:25 Dose: 20 mg Tamsulosin HCl (Flomax -) 0.4 mg PO DAILY@0830 [facility] Last Admin: 10/30/17 09:24 Dose: 0.4 mg Tramadol HCl (Ultram -) 50 mg PO Q6H PRN Last Admin: 10/29/17 21:50 Dose: 50 mg - Objective Vital Signs: Vital Signs Temperature 98.2 F 10/30/17 09:00 Pulse Rate 88 10/30/17 09:24 Respiratory Rate 14 10/30/17 09:00 Blood Pressure 152/86 10/30/17 09:00 O2 Sat by Pulse Oximetry (%) 94 L 10/29/17 21:00 Constitutional: Yes: Well Nourished, Calm Eyes: Yes: WNL HENT: Yes: WNL Neck: Yes: WNL Cardiovascular: Yes: Pulse Irregular, S1, S2 Respiratory: Yes: Rales (BIBASILAR RALES) Gastrointestinal: Yes: Normal Bowel Sounds, Soft Extremities: Yes: WNL Edema: Yes Labs: CBC, BMP 10/30/17 06:50 10/30/17 06:50 Problem List - Problems (1) Atrial fibrillation Code(s): I48.91 - UNSPECIFIED ATRIAL FIBRILLATION Qualifiers: Atrial fibrillation type: chronic Qualified Code(s): I48.2 - Chronic atrial fibrillation (2) CHF (congestive heart failure) Code(s): I50.9 - HEART FAILURE, UNSPECIFIED Qualifiers: Congestive heart failure type: unspecified congestive heart failure type Congestive heart failure chronicity: acute on chronic (3) COPD (chronic obstructive pulmonary disease) Code(s): J44.9 - CHRONIC OBSTRUCTIVE PULMONARY DISEASE, UNSPECIFIED Qualifiers: COPD type: unspecified COPD Qualified Code(s): J44.9 - Chronic obstructive pulmonary disease, unspecified (4) Acute exacerbation of chronic obstructive pulmonary disease (COPD) Code(s): J44.1 - CHRONIC OBSTRUCTIVE PULMONARY DISEASE W (ACUTE) EXACERBATION (5) Cough Code(s): R05 - COUGH (6) Diabetes mellitus Code(s): E11.9 - TYPE 2 DIABETES MELLITUS WITHOUT COMPLICATIONS (7) Elevated troponin Code(s): R74.8 - ABNORMAL LEVELS OF OTHER SERUM ENZYMES (8) H/O heart artery stent Code(s): Z95.5 - PRESENCE OF CORONARY ANGIOPLASTY IMPLANT AND GRAFT (9) Pneumonia Code(s): J18.9 - PNEUMONIA, UNSPECIFIED ORGANISM Qualifiers: Pneumonia type: due to unspecified organism Laterality: left Lung location: lower lobe of lung Qualified Code(s): J18.1 - Lobar pneumonia, unspecified organism (10) Dyspnea Code(s): R06.00 - DYSPNEA, UNSPECIFIED Assessment/Plan IMP DYSPNEA IMPROVING R PLEURAL EFFUSION ACUTE ON CHRONIC CHF ASHD S/P STENT AFIB S/P RECENT ABLATION DM + TROPONIN PLAN ANTIBIOTICS PER ID LASIX TREND TROPONINS STEROID TAPER O2 INHALED BRONCHODILATORS F/U CHEST X-RAYS DAILY WTS DR GOMEZ Problem List - Problems (1) Atrial fibrillation Code(s): I48.91 - UNSPECIFIED ATRIAL FIBRILLATION Qualifiers: Atrial fibrillation type: chronic Qualified Code(s): I48.2 - Chronic atrial fibrillation (2) CHF (congestive heart failure) Code(s): I50.9 - HEART FAILURE, UNSPECIFIED Qualifiers: Congestive heart failure type: unspecified congestive heart failure type Congestive heart failure chronicity: acute on chronic Qualified Code(s): I50.9 - Heart failure, unspecified (3) COPD (chronic obstructive pulmonary disease) Code(s): J44.9 - CHRONIC OBSTRUCTIVE PULMONARY DISEASE, UNSPECIFIED Qualifiers: COPD type: unspecified COPD Qualified Code(s): J44.9 - Chronic obstructive pulmonary disease, unspecified (4) Acute exacerbation of chronic obstructive pulmonary disease (COPD) Code(s): J44.1 - CHRONIC OBSTRUCTIVE PULMONARY DISEASE W (ACUTE) EXACERBATION (5) Cough Code(s): R05 - COUGH (6) Diabetes mellitus Code(s): E11.9 - TYPE 2 DIABETES MELLITUS WITHOUT COMPLICATIONS (7) Elevated troponin Code(s): R74.8 - ABNORMAL LEVELS OF OTHER SERUM ENZYMES (8) H/O heart artery stent Code(s): Z95.5 - PRESENCE OF CORONARY ANGIOPLASTY IMPLANT AND GRAFT (9) Pneumonia Code(s): J18.9 - PNEUMONIA, UNSPECIFIED ORGANISM Qualifiers: Pneumonia type: due to unspecified organism Laterality: left Lung location: lower lobe of lung Qualified Code(s): J18.1 - Lobar pneumonia, unspecified organism (10) Dyspnea Code(s): R06.00 - DYSPNEA, UNSPECIFIED
[2017-10-30] MEDS ORDERED: SODIUM CHLORIDE NASAL SPRAY 44 ML BOTTLE NS PRN (11:43)
[2017-10-30] MEDS: INSULIN DETEMIR 100 UNITS/ML MDV SQ SCH ×2 (11:48→22:23)
--- NOTE | 2017-10-30 11:56 | PN ---
Progress Note, Physician Chief Complaint: sob, edema History of Present Illness: 62 year-old man with a PMH of paroxysmal atrial fibrillation, s/p atrial fibrillation in 10/04/2017 at [facility], COPD, HTN, HLD, DM and CAD s/p LAD PCI/stent in 2014, NSTEMI s/p cardiac cath at [facility] 05/07/2017 which revealed patent LAD stent, non-obstructive LCx and RCA. But the small ramus has severre 95% stenosis, not amendable for PCI because of the size of the vessel admitted 2017 for pneumonia and CHF. He was seen by Pulmonary for pneumonia and receiving Lasix for CHF. Tele shows atrial flutter with variable AV block and rapid VR. He is ruling in for NSTEMI. - Current Medication List Current Medications: Active Medications Aspirin (Asa -) 81 mg PO DAILY [facility] Last Admin: 10/30/17 09:23 Dose: 81 mg Atorvastatin Calcium (Lipitor -) 10 mg PO HS [facility] Last Admin: 10/29/17 21:51 Dose: 10 mg Digoxin (Lanoxin -) 0.25 mg PO DAILY [facility] Last Admin: 10/30/17 09:24 Dose: 0.25 mg Furosemide (Lasix Injection -) 40 mg IVPUSH BID@0600,1400 [facility] Last Admin: 10/30/17 06:36 Dose: 40 mg Gabapentin (Neurontin -) 300 mg PO DAILY [facility] Last Admin: 10/30/17 09:24 Dose: 300 mg Insulin Aspart (Novolog Vial Sliding Scale -) 1 vial SQ ACHS [facility] PRN Reason: Protocol Last Admin: 10/30/17 11:49 Dose: 6 units Insulin Aspart (Novolog Mix 70/30 Vial) 20 units SQ BIDAC [facility] Last Admin: 10/30/17 06:36 Dose: 20 units Insulin Detemir (Levemir Vial) 15 units SQ BID [facility] Last Admin: 10/30/17 11:48 Dose: 15 units Ipratropium [place] (Atrovent 0.02% Nebulizer -) 1 amp NEB RQID [facility] Isosorbide Mononitrate (Imdur -) 60 mg PO DAILY [facility] Last Admin: 10/30/17 09:24 Dose: 60 mg Melatonin (Melatonin) 5 mg PO HS PRN PRN Reason: INSOMNIA Last Admin: 10/29/17 21:51 Dose: 5 mg Metoprolol Succinate (Toprol Xl -) 200 mg PO DAILY [facility] Last Admin: 10/30/17 09:23 Dose: 200 mg Prednisone (Deltasone -) 30 mg PO DAILY [facility] Rivaroxaban (Xarelto -) 20 mg PO DAILY [facility] Last Admin: 10/30/17 09:25 Dose: 20 mg Sodium Chloride ([place] Nasal [place] -) 2 spray NS Q6H PRN PRN Reason: NASAL CONGESTION Tamsulosin HCl (Flomax -) 0.4 mg PO DAILY@0830 [facility] Last Admin: 10/30/17 09:24 Dose: 0.4 mg Tramadol HCl (Ultram -) 50 mg PO Q6H PRN Last Admin: 10/29/17 21:50 Dose: 50 mg - Objective Vital Signs: Vital Signs Temperature 98.2 F 10/30/17 09:00 Pulse Rate 88 10/30/17 09:24 Respiratory Rate 14 10/30/17 09:00 Blood Pressure 152/86 10/30/17 09:00 O2 Sat by Pulse Oximetry (%) 94 L 10/30/17 09:00 Constitutional: Yes: No Distress Eyes: Yes: Conjunctiva Clear HENT: Yes: Atraumatic, Normocephalic Neck: Yes: Supple, Trachea Midline Cardiovascular: Yes: Regular Rate and Rhythm Respiratory: Yes: Dullness (bilat bases) Gastrointestinal: Yes: Normal Bowel Sounds, Soft Extremities: Yes: WNL Edema: Yes Edema: LLE: 2+, RLE: 2+ Labs: CBC, BMP 10/30/17 06:50 10/30/17 06:50 Problem List - Problems (1) Atrial fibrillation Assessment/Plan: S/p atrial fibrillation in 10/04/2017 at [facility]. Now he has atrial flutter with improved VR control. Increase Metoprolol succinate to 200 mg daily Continue Digoxin 0.25 mg daily for 4 days and decrease it 0.125 mg daily Continue Xarelto for stroke prevention. We will follow with you. Code(s): I48.91 - UNSPECIFIED ATRIAL FIBRILLATION Qualifiers: Atrial fibrillation type: chronic Qualified Code(s): I48.2 - Chronic atrial fibrillation (2) CHF (congestive heart failure) Assessment/Plan: 1) CHF, likely acute diastolic CHF with physical signs of fluid overload and elevated pro-BNP. Increase IV Lasix to 40 mg q12 hours to keep Os > Is. Monitor electrolytes and renal function. Echo results pending. Code(s): I50.9 - HEART FAILURE, UNSPECIFIED Qualifiers: Congestive heart failure type: unspecified congestive heart failure type Congestive heart failure chronicity: acute on chronic (3) Elevated troponin Assessment/Plan: Medical management for now. Echo pending. Code(s): R74.8 - ABNORMAL LEVELS OF OTHER SERUM ENZYMES
[2017-10-30] MEDS ORDERED: PT OWN MED DRAWER 7, Y5N ONE ×2 (17:46→21:53)
[2017-10-30] MEDS: traMADol HCL 50 MG TABLET PO PRN (18:28)
[2017-10-30] MEDS ORDERED: INSULIN (NOVOLOG) ASPART 100 UNITS/ML 10ML VIAL ONE (21:52)
[2017-10-30] MEDS: MELATONIN 5 MG TABLETS PO PRN (22:23)
[2017-10-30] MEDS: ATORVASTATIN CA 10 MG TABLET (FP) PO SCH (22:23)
[2017-10-31] MEDS: FUROSEMIDE 40 MG/4 ML INJECTABLE VIAL IVPUSH SCH ×2 (06:23→13:20)
[2017-10-31] MEDS: INSULIN (NOVOLOG MIX 70/30) 100 UNITS/ML MDV SQ SCH ×2 (06:23→17:25)
[2017-10-31] MEDS: INSULIN SLIDING SCALE (NOVOLOG) 1 VIAL SQ SCH ×4 (06:24→21:50)
[2017-10-31] MEDS: IPRATROPIUM BR 0.02% 0.5 MG/2.5 ML VIAL.NEB. NEB SCH ×4 (08:20→22:00)
[2017-10-31] MEDS: TAMSULOSIN HCL 0.4 MG CAP.ER.24H (FP) PO SCH (08:59)
[2017-10-31] MEDS: predniSONE 10 MG TABLET (UD) PO SCH (09:05)
[2017-10-31] MEDS: GABAPENTIN 300 MG CAPSULE (FP) PO SCH (09:06)
[2017-10-31] MEDS: METOPROLOL SUCCINATE 100 MG TAB.SR.24H (FP) PO SCH (09:06)
[2017-10-31] MEDS: ASPIRIN 81 MG CHEWABLE TABLETS PO SCH (09:06)
[2017-10-31] MEDS: RIVAROXABAN 20 MG TABLET PO SCH (09:06)
[2017-10-31] MEDS: ISOSORBIDE MONONITRATE 60 MG TAB.SR.24H (FP) PO SCH (09:06)
[2017-10-31] MEDS: SACUBITRIL/VALSARTAN 24 MG-26 MG TABLET PO SCH ×2 (09:07→21:49)
[2017-10-31] MEDS: DIGOXIN 0.25 MG TABLET (FP) PO SCH (09:08)
[2017-10-31] MEDS: INSULIN DETEMIR 100 UNITS/ML MDV SQ SCH ×2 (09:14→21:50)
--- NOTE | 2017-10-31 11:07 | PN ---
Progress Note, Physician Chief Complaint: STILL FATIGUED SOB CHEST PAIN THIS AM - Current Medication List Current Medications: Active Medications Aspirin (Asa -) 81 mg PO DAILY [facility] Last Admin: 10/31/17 09:06 Dose: 81 mg Atorvastatin Calcium (Lipitor -) 10 mg PO HS [facility] Last Admin: 10/30/17 22:23 Dose: 10 mg Digoxin (Lanoxin -) 0.25 mg PO DAILY [facility] Last Admin: 10/31/17 09:08 Dose: 0.25 mg Furosemide (Lasix Injection -) 40 mg IVPUSH BID@0600,1400 [facility] Last Admin: 10/31/17 06:23 Dose: 40 mg Gabapentin (Neurontin -) 300 mg PO DAILY [facility] Last Admin: 10/31/17 09:06 Dose: 300 mg Insulin Aspart (Novolog Vial Sliding Scale -) 1 vial SQ ACHS [facility] PRN Reason: Protocol Last Admin: 10/31/17 06:24 Dose: Not Given Insulin Aspart (Novolog Mix 70/30 Vial) 30 units SQ BIDAC [facility] Last Admin: 10/31/17 06:23 Dose: 30 units Insulin Detemir (Levemir Vial) 10 units SQ BID [facility] Last Admin: 10/31/17 09:14 Dose: Not Given Ipratropium [place] (Atrovent 0.02% Nebulizer -) 1 amp NEB RQID [facility] Last Admin: 10/31/17 08:20 Dose: 1 amp Isosorbide Mononitrate (Imdur -) 60 mg PO DAILY [facility] Last Admin: 10/31/17 09:06 Dose: 60 mg Melatonin (Melatonin) 5 mg PO HS PRN PRN Reason: INSOMNIA Last Admin: 10/30/17 22:23 Dose: 5 mg Metoprolol Succinate (Toprol Xl -) 200 mg PO DAILY [facility] Last Admin: 10/31/17 09:06 Dose: 200 mg Prednisone (Deltasone -) 30 mg PO DAILY [facility] Last Admin: 10/31/17 09:05 Dose: 30 mg Rivaroxaban (Xarelto -) 20 mg PO DAILY [facility] Last Admin: 10/31/17 09:06 Dose: 20 mg Sodium Chloride ([address] [address] [place] Nasal [place] -) 2 spray NS Q6H PRN PRN Reason: NASAL CONGESTION Last Admin: 10/30/17 13:55 Dose: 2 spray Tamsulosin HCl (Flomax -) 0.4 mg PO DAILY@0830 [facility] Last Admin: 10/31/17 08:59 Dose: 0.4 mg Tramadol HCl (Ultram -) 50 mg PO Q6H PRN Last Admin: 10/30/17 18:28 Dose: 50 mg - Objective Vital Signs: Vital Signs Temperature 97.5 F L 10/31/17 05:00 Pulse Rate 86 10/31/17 09:08 Respiratory Rate 20 10/31/17 05:00 Blood Pressure 138/90 10/31/17 05:00 O2 Sat by Pulse Oximetry (%) 99 10/30/17 21:00 Constitutional: Yes: Mild Distress Eyes: Yes: WNL HENT: Yes: WNL Neck: Yes: WNL Cardiovascular: Yes: Pulse Irregular Respiratory: Yes: On Nasal O2, Poor Air Entry Gastrointestinal: Yes: WNL Genitourinary: Yes: WNL Musculoskeletal: Yes: Muscle Weakness Extremities: Yes: WNL Edema: Yes Edema: LLE: 1+, RLE: 1+ Peripheral Pulses WNL: Yes Integumentary: Yes: WNL Wound/Incision: Yes: Clean/Dry Neurological: Yes: Other ...Motor Strength: LLE, RLE Psychiatric: Yes: Other Labs: CBC, BMP 10/30/17 06:50 10/30/17 06:50 Problem List - Problems (1) Atrial fibrillation Code(s): I48.91 - UNSPECIFIED ATRIAL FIBRILLATION Qualifiers: Atrial fibrillation type: chronic Qualified Code(s): I48.2 - Chronic atrial fibrillation (2) CHF (congestive heart failure) Code(s): I50.9 - HEART FAILURE, UNSPECIFIED Qualifiers: Congestive heart failure type: unspecified congestive heart failure type Congestive heart failure chronicity: acute on chronic (3) COPD (chronic obstructive pulmonary disease) Code(s): J44.9 - CHRONIC OBSTRUCTIVE PULMONARY DISEASE, UNSPECIFIED Qualifiers: COPD type: unspecified COPD Qualified Code(s): J44.9 - Chronic obstructive pulmonary disease, unspecified (4) Acute exacerbation of chronic obstructive pulmonary disease (COPD) Code(s): J44.1 - CHRONIC OBSTRUCTIVE PULMONARY DISEASE W (ACUTE) EXACERBATION (5) Diabetes mellitus Code(s): E11.9 - TYPE 2 DIABETES MELLITUS WITHOUT COMPLICATIONS (6) Dyspnea Code(s): R06.00 - DYSPNEA, UNSPECIFIED (7) Elevated troponin Code(s): R74.8 - ABNORMAL LEVELS OF OTHER SERUM ENZYMES (8) H/O heart artery stent Code(s): Z95.5 - PRESENCE OF CORONARY ANGIOPLASTY IMPLANT AND GRAFT Assessment/Plan RANEXA STARTED FOR CONSTANT ANGINA LABS REVIEWED DISCUSSED WITH DR RIVERA POSSIBLY MAY TRANSFER FOR CARDIAC CATH.. OOB TO CHAIR ON AC
--- NOTE | 2017-10-31 11:23 | PN ---
Progress Note, Physician History of Present Illness: pulmonary alert,weak,+ mild chest discomfort,+palacios - Current Medication List Current Medications: Active Medications Aspirin (Asa -) 81 mg PO DAILY [facility] Last Admin: 10/31/17 09:06 Dose: 81 mg Atorvastatin Calcium (Lipitor -) 10 mg PO HS [facility] Last Admin: 10/30/17 22:23 Dose: 10 mg Digoxin (Lanoxin -) 0.25 mg PO DAILY [facility] Last Admin: 10/31/17 09:08 Dose: 0.25 mg Furosemide (Lasix Injection -) 40 mg IVPUSH BID@0600,1400 [facility] Last Admin: 10/31/17 06:23 Dose: 40 mg Gabapentin (Neurontin -) 300 mg PO DAILY [facility] Last Admin: 10/31/17 09:06 Dose: 300 mg Insulin Aspart (Novolog Vial Sliding Scale -) 1 vial SQ ACHS [facility] PRN Reason: Protocol Last Admin: 10/31/17 06:24 Dose: Not Given Insulin Aspart (Novolog Mix 70/30 Vial) 30 units SQ BIDAC [facility] Last Admin: 10/31/17 06:23 Dose: 30 units Insulin Detemir (Levemir Vial) 10 units SQ BID [facility] Last Admin: 10/31/17 09:14 Dose: Not Given Ipratropium [place] (Atrovent 0.02% Nebulizer -) 1 amp NEB RQID [facility] Last Admin: 10/31/17 08:20 Dose: 1 amp Isosorbide Mononitrate (Imdur -) 60 mg PO DAILY [facility] Last Admin: 10/31/17 09:06 Dose: 60 mg Melatonin (Melatonin) 5 mg PO HS PRN PRN Reason: INSOMNIA Last Admin: 10/30/17 22:23 Dose: 5 mg Metoprolol Succinate (Toprol Xl -) 200 mg PO DAILY [facility] Last Admin: 10/31/17 09:06 Dose: 200 mg Prednisone (Deltasone -) 30 mg PO DAILY [facility] Last Admin: 10/31/17 09:05 Dose: 30 mg Ranolazine (Ranexa -) 500 mg PO BID [facility] Rivaroxaban (Xarelto -) 20 mg PO DAILY [facility] Last Admin: 10/31/17 09:06 Dose: 20 mg Sodium Chloride ([place] Nasal [place] -) 2 spray NS Q6H PRN PRN Reason: NASAL CONGESTION Last Admin: 10/30/17 13:55 Dose: 2 spray Tamsulosin HCl (Flomax -) 0.4 mg PO DAILY@0830 [facility] Last Admin: 10/31/17 08:59 Dose: 0.4 mg Tramadol HCl (Ultram -) 50 mg PO Q6H PRN Last Admin: 10/30/17 18:28 Dose: 50 mg - Objective Vital Signs: Vital Signs Temperature 97.5 F L 10/31/17 05:00 Pulse Rate 86 10/31/17 09:08 Respiratory Rate 20 10/31/17 05:00 Blood Pressure 138/90 10/31/17 05:00 O2 Sat by Pulse Oximetry (%) 99 10/30/17 21:00 Constitutional: Yes: Well Nourished, Calm Eyes: Yes: WNL HENT: Yes: WNL Neck: Yes: WNL Cardiovascular: Yes: Pulse Irregular, S1, S2 Respiratory: Yes: Rales (bibasilar crackles) Gastrointestinal: Yes: Normal Bowel Sounds, Soft Extremities: Yes: WNL Edema: Yes Labs: CBC, BMP Problem List - Problems (1) Atrial fibrillation Code(s): I48.91 - UNSPECIFIED ATRIAL FIBRILLATION Qualifiers: Atrial fibrillation type: chronic Qualified Code(s): I48.2 - Chronic atrial fibrillation (2) CHF (congestive heart failure) Code(s): I50.9 - HEART FAILURE, UNSPECIFIED Qualifiers: Congestive heart failure type: unspecified congestive heart failure type Congestive heart failure chronicity: acute on chronic (3) COPD (chronic obstructive pulmonary disease) Code(s): J44.9 - CHRONIC OBSTRUCTIVE PULMONARY DISEASE, UNSPECIFIED Qualifiers: COPD type: unspecified COPD Qualified Code(s): J44.9 - Chronic obstructive pulmonary disease, unspecified (4) Acute exacerbation of chronic obstructive pulmonary disease (COPD) Code(s): J44.1 - CHRONIC OBSTRUCTIVE PULMONARY DISEASE W (ACUTE) EXACERBATION (5) Cough Code(s): R05 - COUGH (6) Diabetes mellitus Code(s): E11.9 - TYPE 2 DIABETES MELLITUS WITHOUT COMPLICATIONS (7) Elevated troponin Code(s): R74.8 - ABNORMAL LEVELS OF OTHER SERUM ENZYMES (8) H/O heart artery stent Code(s): Z95.5 - PRESENCE OF CORONARY ANGIOPLASTY IMPLANT AND GRAFT (9) Pneumonia Code(s): J18.9 - PNEUMONIA, UNSPECIFIED ORGANISM Qualifiers: Pneumonia type: due to unspecified organism Laterality: left Lung location: lower lobe of lung Qualified Code(s): J18.1 - Lobar pneumonia, unspecified organism (10) Dyspnea Code(s): R06.00 - DYSPNEA, UNSPECIFIED Assessment/Plan IMP DYSPNEA IMPROVING R PLEURAL EFFUSION ACUTE ON CHRONIC CHF ASHD S/P STENT AFIB S/P RECENT ABLATION DM + TROPONIN PLAN LASIX STEROID TAPER O2 INHALED BRONCHODILATORS F/U CHEST X-RAYS DAILY WTS DR GOMEZ Problem List - Problems (1) Atrial fibrillation Code(s): I48.91 - UNSPECIFIED ATRIAL FIBRILLATION Qualifiers: Atrial fibrillation type: chronic Qualified Code(s): I48.2 - Chronic atrial fibrillation (2) CHF (congestive heart failure) Code(s): I50.9 - HEART FAILURE, UNSPECIFIED Qualifiers: Congestive heart failure type: unspecified congestive heart failure type Congestive heart failure chronicity: acute on chronic Qualified Code(s): I50.9 - Heart failure, unspecified (3) COPD (chronic obstructive pulmonary disease) Code(s): J44.9 - CHRONIC OBSTRUCTIVE PULMONARY DISEASE, UNSPECIFIED Qualifiers: COPD type: unspecified COPD Qualified Code(s): J44.9 - Chronic obstructive pulmonary disease, unspecified (4) Acute exacerbation of chronic obstructive pulmonary disease (COPD) Code(s): J44.1 - CHRONIC OBSTRUCTIVE PULMONARY DISEASE W (ACUTE) EXACERBATION (5) Cough Code(s): R05 - COUGH (6) Diabetes mellitus Code(s): E11.9 - TYPE 2 DIABETES MELLITUS WITHOUT COMPLICATIONS (7) Elevated troponin Code(s): R74.8 - ABNORMAL LEVELS OF OTHER SERUM ENZYMES (8) H/O heart artery stent Code(s): Z95.5 - PRESENCE OF CORONARY ANGIOPLASTY IMPLANT AND GRAFT (9) Pneumonia Code(s): J18.9 - PNEUMONIA, UNSPECIFIED ORGANISM Qualifiers: Pneumonia type: due to unspecified organism Laterality: left Lung location: lower lobe of lung Qualified Code(s): J18.1 - Lobar pneumonia, unspecified organism (10) Dyspnea Code(s): R06.00 - DYSPNEA, UNSPECIFIED
[2017-10-31] MEDS: RANOLAZINE E.R. 500 MG TABLET (FP) PO SCH ×2 (13:40→21:50)
--- NOTE | 2017-10-31 15:07 | PN ---
Progress Note, Physician Chief Complaint: sob, edema improving he had left upper chest pain this am. tele neg History of Present Illness: 62 year-old man with a PMH of paroxysmal atrial fibrillation, s/p atrial fibrillation in 10/04/2017 at [facility], COPD, HTN, HLD, DM and CAD s/p LAD PCI/stent in 2014, NSTEMI s/p cardiac cath at [facility] [place] 05/07/2017 which revealed patent LAD stent, non-obstructive LCx and RCA. But the small ramus has severre 95% stenosis, not amendable for PCI because of the size of the vessel admitted 2017 for pneumonia and CHF. He was seen by Pulmonary for pneumonia and receiving Lasix for CHF. Tele shows atrial flutter with variable AV block and rapid VR. He is ruling in for NSTEMI. He had brief left upper chest pain different from his usual ischemia pain this am. Better now. Echo 10/30/17 borderline EF mild mr small basilio effusion, pl effusion. - Current Medication List Current Medications: Active Medications Aspirin (Asa -) 81 mg PO DAILY [facility] Last Admin: 10/31/17 09:06 Dose: 81 mg Atorvastatin Calcium (Lipitor -) 10 mg PO HS [facility] Last Admin: 10/30/17 22:23 Dose: 10 mg Digoxin (Lanoxin -) 0.25 mg PO DAILY [facility] Last Admin: 10/31/17 09:08 Dose: 0.25 mg Furosemide (Lasix Injection -) 40 mg IVPUSH BID@0600,1400 [facility] Last Admin: 10/31/17 13:20 Dose: 40 mg Gabapentin (Neurontin -) 300 mg PO DAILY [facility] Last Admin: 10/31/17 09:06 Dose: 300 mg Insulin Aspart (Novolog Vial Sliding Scale -) 1 vial SQ [facility] PRN Reason: Protocol Last Admin: 10/31/17 11:43 Dose: Not Given Insulin Aspart (Novolog Mix 70/30 Vial) 30 units SQ BIDAC [facility] Last Admin: 10/31/17 06:23 Dose: 30 units Insulin Detemir (Levemir Vial) 10 units SQ BID [facility] Last Admin: 10/31/17 09:14 Dose: Not Given Ipratropium [place] (Atrovent 0.02% Nebulizer -) 1 amp NEB RQID [facility] Last Admin: 10/31/17 12:50 Dose: 1 amp Isosorbide Mononitrate (Imdur -) 60 mg PO DAILY [facility] Last Admin: 10/31/17 09:06 Dose: 60 mg Metoprolol Succinate (Toprol Xl -) 200 mg PO DAILY [facility] Last Admin: 10/31/17 09:06 Dose: 200 mg Prednisone (Deltasone -) 30 mg PO DAILY [facility] Last Admin: 10/31/17 09:05 Dose: 30 mg Ranolazine (Ranexa -) 500 mg PO BID [facility] Last Admin: 10/31/17 13:40 Dose: 500 mg Rivaroxaban (Xarelto -) 20 mg PO DAILY [facility] Last Admin: 10/31/17 09:06 Dose: 20 mg Sodium Chloride ([place] Nasal [place] -) 2 spray NS Q6H PRN PRN Reason: NASAL CONGESTION Last Admin: 10/30/17 13:55 Dose: 2 spray Tamsulosin HCl (Flomax -) 0.4 mg PO DAILY@0830 [facility] Last Admin: 10/31/17 08:59 Dose: 0.4 mg Tramadol HCl (Ultram -) 50 mg PO Q6H PRN Last Admin: 10/30/17 18:28 Dose: 50 mg Zolpidem Tartrate (Ambien -) 5 mg PO HS PRN PRN Reason: INSOMNIA - Objective Vital Signs: Vital Signs Temperature 98.2 F 10/31/17 14:28 Pulse Rate 51 L 10/31/17 14:28 Respiratory Rate 18 10/31/17 14:28 Blood Pressure 114/67 10/31/17 14:28 O2 Sat by Pulse Oximetry (%) 98 10/31/17 09:00 Constitutional: Yes: Well Nourished, No Distress Eyes: Yes: Conjunctiva Clear, EOM Intact HENT: Yes: Normocephalic Neck: Yes: Trachea Midline Cardiovascular: Yes: Pulse Irregular Respiratory: Yes: Dullness (bilat bases) Extremities: Yes: WNL Edema: Yes Edema: LLE: 1+, RLE: 1+ Peripheral Pulses WNL: Yes Labs: CBC, BMP 10/30/17 06:50 10/30/17 06:50 Problem List - Problems (1) Atrial fibrillation Assessment/Plan: S/p atrial fibrillation in 10/04/2017 at [facility]. Now he has atrial flutter with improved VR control. Continue Metoprolol succinate 200 mg daily Continue Xarelto for stroke prevention. We will follow with you. Code(s): I48.91 - UNSPECIFIED ATRIAL FIBRILLATION Qualifiers: Atrial fibrillation type: chronic Qualified Code(s): I48.2 - Chronic atrial fibrillation (2) CHF (congestive heart failure) Assessment/Plan: 1) CHF, likely acute diastolic CHF with physical signs of fluid overload and elevated pro-BNP. Increase IV Lasix to 40 mg q12 hours to keep Os > Is. Monitor electrolytes and renal function. Echo borderline EF, small pericardial effusion mild mr. Code(s): I50.9 - HEART FAILURE, UNSPECIFIED Qualifiers: Congestive heart failure type: unspecified congestive heart failure type Congestive heart failure chronicity: acute on chronic (3) Elevated troponin Assessment/Plan: Medical management for now. I have reviewed his cath films from April and he has a small ramus with a tight lesion not amenable to PCI. Code(s): R74.8 - ABNORMAL LEVELS OF OTHER SERUM ENZYMES
[2017-10-31] MEDS ORDERED: INSULIN (NOVOLOG) ASPART 100 UNITS/ML 10ML VIAL ONE (17:24)
[2017-10-31] MEDS ORDERED: PT OWN MED DRAWER 7, Y5N ONE (21:45)
[2017-10-31] MEDS: traMADol HCL 50 MG TABLET PO PRN (21:49)
[2017-10-31] MEDS: ZOLPIDEM TARTRATE 5 MG TABLET PO PRN (21:50)
[2017-10-31] MEDS: ATORVASTATIN CA 10 MG TABLET (FP) PO SCH (21:50)
[2017-11-01] MEDS: FUROSEMIDE 40 MG/4 ML INJECTABLE VIAL IVPUSH SCH ×2 (06:32→13:13)
[2017-11-01] MEDS: INSULIN (NOVOLOG MIX 70/30) 100 UNITS/ML MDV SQ SCH ×2 (07:31→16:41)
[2017-11-01] MEDS: INSULIN SLIDING SCALE (NOVOLOG) 1 VIAL SQ SCH ×4 (07:32→21:54)
[2017-11-01] MEDS: IPRATROPIUM BR 0.02% 0.5 MG/2.5 ML VIAL.NEB. NEB SCH ×4 (07:50→20:45)
[2017-11-01] MEDS: TAMSULOSIN HCL 0.4 MG CAP.ER.24H (FP) PO SCH (08:55)
[2017-11-01] MEDS: GABAPENTIN 300 MG CAPSULE (FP) PO SCH (09:14)
[2017-11-01] MEDS: METOPROLOL SUCCINATE 100 MG TAB.SR.24H (FP) PO SCH (09:15)
[2017-11-01] MEDS: predniSONE 10 MG TABLET (UD) PO SCH (09:15)
[2017-11-01] MEDS: RANOLAZINE E.R. 500 MG TABLET (FP) PO SCH ×2 (09:15→21:52)
[2017-11-01] MEDS: SACUBITRIL/VALSARTAN 24 MG-26 MG TABLET PO SCH ×2 (09:15→21:51)
[2017-11-01] MEDS: ISOSORBIDE MONONITRATE 60 MG TAB.SR.24H (FP) PO SCH (09:15)
[2017-11-01] MEDS: ASPIRIN 81 MG CHEWABLE TABLETS PO SCH (09:15)
[2017-11-01] MEDS: DIGOXIN 0.25 MG TABLET (FP) PO SCH (09:16)
[2017-11-01] MEDS: INSULIN DETEMIR 100 UNITS/ML MDV SQ SCH (09:16)
[2017-11-01] MEDS: RIVAROXABAN 20 MG TABLET PO SCH (09:16)
--- NOTE | 2017-11-01 13:57 | PN ---
Progress Note (short form) - Note Progress Note: PULMONARY States breathing is improving. Leg swelling also decreasing. Occasional nonproductive cough. Last Vital Signs Temp Pulse Resp BP Pulse Ox 98 F 70 20 126/80 97 11/01/17 10:00 11/01/17 10:00 11/01/17 10:00 11/01/17 10:00 11/01/17 09:00 Gen: NAD at rest Heart: irregular Lung: decreased breath sounds at the bases Abd: soft, nontender Ext: + edema CBC, BMP 10/30/17 06:50 10/30/17 06:50 Active Medications Aspirin (Asa -) 81 mg PO DAILY [facility] Last Admin: 11/01/17 09:15 Dose: 81 mg Atorvastatin Calcium (Lipitor -) 10 mg PO HS [facility] Last Admin: 10/31/17 21:50 Dose: 10 mg Digoxin (Lanoxin -) 0.25 mg PO DAILY [facility] Last Admin: 11/01/17 09:16 Dose: 0.25 mg Furosemide (Lasix Injection -) 40 mg IVPUSH BID@0600,1400 [facility] Last Admin: 11/01/17 13:13 Dose: 40 mg Gabapentin (Neurontin -) 300 mg PO DAILY [facility] Last Admin: 11/01/17 09:14 Dose: 300 mg Insulin Aspart (Novolog Vial Sliding Scale -) 1 vial SQ ACHS [facility] PRN Reason: Protocol Last Admin: 11/01/17 11:35 Dose: Not Given Insulin Aspart (Novolog Mix 70/30 Vial) 30 units SQ BIDAC [facility] Last Admin: 11/01/17 07:31 Dose: 30 units Ipratropium [place] (Atrovent 0.02% Nebulizer -) 1 amp NEB RQID [facility] Last Admin: 11/01/17 07:50 Dose: 1 amp Isosorbide Mononitrate (Imdur -) 60 mg PO DAILY [facility] Last Admin: 11/01/17 09:15 Dose: 60 mg Metoprolol Succinate (Toprol Xl -) 200 mg PO DAILY [facility] Last Admin: 11/01/17 09:15 Dose: 200 mg Prednisone (Deltasone -) 30 mg PO DAILY [facility] Last Admin: 11/01/17 09:15 Dose: 30 mg Ranolazine (Ranexa -) 500 mg PO BID [facility] Last Admin: 11/01/17 09:15 Dose: 500 mg Rivaroxaban (Xarelto -) 20 mg PO DAILY [facility] Last Admin: 11/01/17 09:16 Dose: 20 mg Sodium Chloride ([place] Nasal [place] -) 2 spray NS Q6H PRN PRN Reason: NASAL CONGESTION Last Admin: 10/30/17 13:55 Dose: 2 spray Tamsulosin HCl (Flomax -) 0.4 mg PO DAILY@0830 [facility] Last Admin: 11/01/17 08:55 Dose: 0.4 mg Tramadol HCl (Ultram -) 50 mg PO Q6H PRN Last Admin: 10/31/17 21:49 Dose: 50 mg Zolpidem Tartrate (Ambien -) 5 mg PO HS PRN PRN Reason: INSOMNIA Last Admin: 10/31/17 21:50 Dose: 5 mg A/P Acute on Chronic Diastolic Heart Failure Pleural Effusion Atiral Fibrillation CAD DM +Troponins likely Demand Ischemia - continue lasix - monitor urine output, creatinine - taper off steroids - repeat CXR in AM - O2 to keep Spo2 >90% - rate controlled - continue anticoagulation
--- NOTE | 2017-11-01 14:35 | PN ---
Progress Note, Physician Chief Complaint: sob, edema improving he had left upper chest pain this am, pulsating lasted 2-3 hours. tele aflutter with controlled VR History of Present Illness: 62 year-old man with a PMH of paroxysmal atrial fibrillation, s/p atrial fibrillation in 10/04/2017 at [facility], COPD, HTN, HLD, DM and CAD s/p LAD PCI/stent in 2014, NSTEMI s/p cardiac cath at [facility] 05/07/2017 which revealed patent LAD stent, non-obstructive LCx and RCA. But the small ramus has severre 95% stenosis, not amendable for PCI because of the size of the vessel admitted 2017 for pneumonia and CHF. He was seen by Pulmonary for pneumonia and receiving Lasix for CHF. Tele shows atrial flutter with variable AV block and rapid VR. He is ruling in for NSTEMI. He had brief left upper chest pain different from his usual ischemia pain this am. Better now. Echo 10/30/17 borderline EF mild mr small basilio effusion, pl effusion. - Current Medication List Current Medications: Active Medications Aspirin (Asa -) 81 mg PO DAILY [facility] Last Admin: 11/01/17 09:15 Dose: 81 mg Atorvastatin Calcium (Lipitor -) 10 mg PO HS [facility] Last Admin: 10/31/17 21:50 Dose: 10 mg Digoxin (Lanoxin -) 0.25 mg PO DAILY [facility] Last Admin: 11/01/17 09:16 Dose: 0.25 mg Furosemide (Lasix Injection -) 40 mg IVPUSH BID@0600,1400 [facility] Last Admin: 11/01/17 13:13 Dose: 40 mg Gabapentin (Neurontin -) 300 mg PO DAILY [facility] Last Admin: 11/01/17 09:14 Dose: 300 mg Insulin Aspart (Novolog Vial Sliding Scale -) 1 vial SQ ACHS [facility] PRN Reason: Protocol Last Admin: 11/01/17 11:35 Dose: Not Given Insulin Aspart (Novolog Mix 70/30 Vial) 30 units SQ BIDAC [facility] Last Admin: 11/01/17 07:31 Dose: 30 units Ipratropium [place] (Atrovent 0.02% Nebulizer -) 1 amp NEB RQID [facility] Last Admin: 11/01/17 07:50 Dose: 1 amp Isosorbide Mononitrate (Imdur -) 60 mg PO DAILY [facility] Last Admin: 11/01/17 09:15 Dose: 60 mg Metoprolol Succinate (Toprol Xl -) 200 mg PO DAILY [facility] Last Admin: 11/01/17 09:15 Dose: 200 mg Prednisone (Deltasone -) 30 mg PO DAILY [facility] Last Admin: 11/01/17 09:15 Dose: 30 mg Ranolazine (Ranexa -) 500 mg PO BID [facility] Last Admin: 11/01/17 09:15 Dose: 500 mg Rivaroxaban (Xarelto -) 20 mg PO DAILY [facility] Last Admin: 11/01/17 09:16 Dose: 20 mg Sodium Chloride ([place] Nasal [place] -) 2 spray NS Q6H PRN PRN Reason: NASAL CONGESTION Last Admin: 10/30/17 13:55 Dose: 2 spray Tamsulosin HCl (Flomax -) 0.4 mg PO DAILY@0830 [facility] Last Admin: 11/01/17 08:55 Dose: 0.4 mg Tramadol HCl (Ultram -) 50 mg PO Q6H PRN Last Admin: 10/31/17 21:49 Dose: 50 mg Zolpidem Tartrate (Ambien -) 5 mg PO HS PRN PRN Reason: INSOMNIA Last Admin: 10/31/17 21:50 Dose: 5 mg - Objective Vital Signs: Vital Signs Temperature 98 F 11/01/17 10:00 Pulse Rate 70 11/01/17 10:00 Respiratory Rate 20 11/01/17 10:00 Blood Pressure 126/80 11/01/17 10:00 O2 Sat by Pulse Oximetry (%) 97 11/01/17 09:00 Constitutional: Yes: No Distress Eyes: Yes: Conjunctiva Clear HENT: Yes: Normocephalic Neck: Yes: Trachea Midline Cardiovascular: Yes: Pulse Irregular Respiratory: Yes: CTA Bilaterally Gastrointestinal: Yes: Normal Bowel Sounds Edema: Yes Edema: LLE: Trace, RLE: Trace Peripheral Pulses WNL: Yes Labs: CBC, BMP 10/30/17 06:50 10/30/17 06:50 Problem List - Problems (1) Atrial fibrillation Assessment/Plan: S/p atrial fibrillation in 10/04/2017 at [facility]. Now he has atrial flutter with improved VR control. Continue Metoprolol succinate 200 mg daily Continue Xarelto for stroke prevention. Code(s): I48.91 - UNSPECIFIED ATRIAL FIBRILLATION Qualifiers: Atrial fibrillation type: chronic Qualified Code(s): I48.2 - Chronic atrial fibrillation (2) CHF (congestive heart failure) Assessment/Plan: 1) CHF, likely acute diastolic CHF with physical signs of fluid overload and elevated pro-BNP. Change lasix to PO 40 mg bid. Monitor electrolytes and renal function. Echo borderline EF, small pericardial effusion mild mr. repeat cxr tomorrow. Code(s): I50.9 - HEART FAILURE, UNSPECIFIED Qualifiers: Congestive heart failure type: unspecified congestive heart failure type Congestive heart failure chronicity: acute on chronic (3) Elevated troponin Assessment/Plan: Medical management for now. I have reviewed his cath films from April and he has a small ramus with a tight lesion not amenable to PCI. Code(s): R74.8 - ABNORMAL LEVELS OF OTHER SERUM ENZYMES
--- NOTE | 2017-11-01 19:25 | PN ---
Progress Note, Physician Chief Complaint: AWAKE ALERT STILL EPISODED OF CHEST PAIN - Current Medication List Current Medications: Active Medications Aspirin (Asa -) 81 mg PO DAILY [facility] Last Admin: 11/01/17 09:15 Dose: 81 mg Atorvastatin Calcium (Lipitor -) 10 mg PO HS [facility] Last Admin: 10/31/17 21:50 Dose: 10 mg Digoxin (Lanoxin -) 0.25 mg PO DAILY [facility] Last Admin: 11/01/17 09:16 Dose: 0.25 mg Furosemide (Lasix Injection -) 40 mg IVPUSH BID@0600,1400 [facility] Last Admin: 11/01/17 13:13 Dose: 40 mg Gabapentin (Neurontin -) 300 mg PO DAILY [facility] Last Admin: 11/01/17 09:14 Dose: 300 mg Insulin Aspart (Novolog Vial Sliding Scale -) 1 vial SQ ACHS [facility] PRN Reason: Protocol Last Admin: 11/01/17 16:41 Dose: 2 units Insulin Aspart (Novolog Mix 70/30 Vial) 30 units SQ BIDAC [facility] Last Admin: 11/01/17 16:41 Dose: 30 units Ipratropium [place] (Atrovent 0.02% Nebulizer -) 1 amp NEB RQID [facility] Last Admin: 11/01/17 16:10 Dose: 1 amp Isosorbide Mononitrate (Imdur -) 60 mg PO DAILY [facility] Last Admin: 11/01/17 09:15 Dose: 60 mg Metoprolol Succinate (Toprol Xl -) 200 mg PO DAILY [facility] Last Admin: 11/01/17 09:15 Dose: 200 mg Prednisone (Deltasone -) 30 mg PO DAILY [facility] Last Admin: 11/01/17 09:15 Dose: 30 mg Ranolazine (Ranexa -) 500 mg PO BID [facility] Last Admin: 11/01/17 09:15 Dose: 500 mg Rivaroxaban (Xarelto -) 20 mg PO DAILY [facility] Last Admin: 11/01/17 09:16 Dose: 20 mg Sodium Chloride ([place] Nasal [place] -) 2 spray NS Q6H PRN PRN Reason: NASAL CONGESTION Last Admin: 10/30/17 13:55 Dose: 2 spray Tamsulosin HCl (Flomax -) 0.4 mg PO DAILY@0830 [facility] Last Admin: 11/01/17 08:55 Dose: 0.4 mg Tramadol HCl (Ultram -) 50 mg PO Q6H PRN Last Admin: 10/31/17 21:49 Dose: 50 mg Zolpidem Tartrate (Ambien -) 5 mg PO HS PRN PRN Reason: INSOMNIA Last Admin: 10/31/17 21:50 Dose: 5 mg - Objective Vital Signs: Vital Signs Temperature 98.0 F 11/01/17 17:00 Pulse Rate 46 L 11/01/17 17:00 Respiratory Rate 18 11/01/17 17:00 Blood Pressure 115/60 11/01/17 17:00 O2 Sat by Pulse Oximetry (%) 97 11/01/17 09:00 Constitutional: Yes: Mild Distress Eyes: Yes: WNL HENT: Yes: WNL Neck: Yes: WNL Cardiovascular: Yes: WNL Respiratory: Yes: WNL Gastrointestinal: Yes: WNL Genitourinary: Yes: WNL Musculoskeletal: Yes: WNL Extremities: Yes: WNL Edema: No Peripheral Pulses WNL: Yes Integumentary: Yes: WNL Wound/Incision: Yes: Clean/Dry Neurological: Yes: WNL ...Motor Strength: WNL Psychiatric: Yes: WNL Labs: CBC, BMP 10/30/17 06:50 10/30/17 06:50 Problem List - Problems (1) Atrial fibrillation Code(s): I48.91 - UNSPECIFIED ATRIAL FIBRILLATION Qualifiers: Atrial fibrillation type: chronic Qualified Code(s): I48.2 - Chronic atrial fibrillation (2) CHF (congestive heart failure) Code(s): I50.9 - HEART FAILURE, UNSPECIFIED Qualifiers: Congestive heart failure type: unspecified congestive heart failure type Congestive heart failure chronicity: acute on chronic (3) COPD (chronic obstructive pulmonary disease) Code(s): J44.9 - CHRONIC OBSTRUCTIVE PULMONARY DISEASE, UNSPECIFIED Qualifiers: COPD type: unspecified COPD Qualified Code(s): J44.9 - Chronic obstructive pulmonary disease, unspecified (4) Acute exacerbation of chronic obstructive pulmonary disease (COPD) Code(s): J44.1 - CHRONIC OBSTRUCTIVE PULMONARY DISEASE W (ACUTE) EXACERBATION (5) Diabetes mellitus Code(s): E11.9 - TYPE 2 DIABETES MELLITUS WITHOUT COMPLICATIONS (6) Dyspnea Code(s): R06.00 - DYSPNEA, UNSPECIFIED (7) Elevated troponin Code(s): R74.8 - ABNORMAL LEVELS OF OTHER SERUM ENZYMES (8) H/O heart artery stent Code(s): Z95.5 - PRESENCE OF CORONARY ANGIOPLASTY IMPLANT AND GRAFT Assessment/Plan CARDIOLOGY F/U PATIENT ON RANEXA FOR CHEST PAIN ANGINA TELE NO SIGNIFICANT ALARMS MAY NEED CARDIAC CATH
[2017-11-01] MEDS ORDERED: PT OWN MED DRAWER 7, Y5N ONE (21:49)
[2017-11-01] MEDS ORDERED: INSULIN (NOVOLOG) ASPART 100 UNITS/ML 10ML VIAL ONE (21:50)
[2017-11-01] MEDS: ATORVASTATIN CA 10 MG TABLET (FP) PO SCH (21:52)
[2017-11-01] MEDS: traMADol HCL 50 MG TABLET PO PRN (21:52)
[2017-11-01] MEDS: ZOLPIDEM TARTRATE 5 MG TABLET PO PRN (21:52)
[2017-11-02] MEDS: INSULIN (NOVOLOG MIX 70/30) 100 UNITS/ML MDV SQ SCH (06:34)
[2017-11-02] MEDS: FUROSEMIDE 40 MG/4 ML INJECTABLE VIAL IVPUSH SCH (06:34)
[2017-11-02] MEDS: INSULIN SLIDING SCALE (NOVOLOG) 1 VIAL SQ SCH ×2 (06:34→12:18)
[2017-11-02 06:42] VITALS: TEMP 98.8
[2017-11-02] MEDS: IPRATROPIUM BR 0.02% 0.5 MG/2.5 ML VIAL.NEB. NEB SCH ×2 (07:02→11:42)
[2017-11-02] MEDS: TAMSULOSIN HCL 0.4 MG CAP.ER.24H (FP) PO SCH (07:55)
[2017-11-02] MEDS ORDERED: PT OWN MED DRAWER 7, Y5N ONE ×2 (08:27→10:01)
[2017-11-02 09:02] VITALS: BP 127/88; PULSE 73
[2017-11-02 09:41] LABS: HEMATOCRIT 40.2 % (35.4-49); HEMOGLOBIN 12.5 GM/dL (11.7-16.9); MCH 23.6 pg (25.7-33.7); MEAN CELL VOLUME 76.2 fl (80-96); MEAN PLT VOLUME 8.7 fl (7.5-11.1); PLATELET COUNT 448 K/MM3 (134-434); RBC 5.28 M/mm3 (4.00-5.60); RDW 17.8 % (11.9-15.9); WHITE BLOOD COUNT 15.6 K/mm3 (4.0-10.0)
[2017-11-02] MEDS: RIVAROXABAN 20 MG TABLET PO SCH (09:57)
[2017-11-02] MEDS: predniSONE 10 MG TABLET (UD) PO SCH (09:57)
[2017-11-02] MEDS: DIGOXIN 0.25 MG TABLET (FP) PO SCH (09:58)
[2017-11-02] MEDS: GABAPENTIN 300 MG CAPSULE (FP) PO SCH (09:58)
[2017-11-02] MEDS: ASPIRIN 81 MG CHEWABLE TABLETS PO SCH (09:58)
[2017-11-02] MEDS: METOPROLOL SUCCINATE 100 MG TAB.SR.24H (FP) PO SCH (09:59)
[2017-11-02] MEDS: SACUBITRIL/VALSARTAN 24 MG-26 MG TABLET PO SCH (09:59)
[2017-11-02] MEDS: RANOLAZINE E.R. 500 MG TABLET (FP) PO SCH (09:59)
[2017-11-02] MEDS: ISOSORBIDE MONONITRATE 60 MG TAB.SR.24H (FP) PO SCH (09:59)
[2017-11-02] MEDS: traMADol HCL 50 MG TABLET PO PRN (10:01)
[2017-11-02 10:27] LABS: CHLORIDE 97 mmol/L (98-107); POTASSIUM 3.6 mmol/L (3.5-5.1); SODIUM 137 mmol/L (136-145)
[2017-11-02 10:40] LABS: ALBUMIN 2.4 g/dl (3.4-5.0); ALK PHOS 133 U/L (45-117); ANION GAP 9 (8-16); BILIRUBIN,TOTAL 3.5 mg/dL (0.2-1.0); BLOOD UREA NITROGEN 40 mg/dL (7-18); CALCIUM 8.5 mg/dL (8.5-10.1); CO2 31 mmol/L (21-32); CREATININE 1.1 mg/dL (0.7-1.3); GLUCOSE,RANDOM 234 mg/dL (74-106); MAGNESIUM 1.9 mg/dL (1.8-2.4); SGOT/AST 30 U/L (15-37); SGPT/ALT 78 U/L (12-78); TOT PROT 5.6 g/dl (6.4-8.2)
--- NOTE | 2017-11-02 11:16 | PN ---
Progress Note, Physician History of Present Illness: pulmonary alert,feeling better,less dyspneic,cp improving - Current Medication List Current Medications: Active Medications Aspirin (Asa -) 81 mg PO DAILY [facility] Last Admin: 11/02/17 09:58 Dose: 81 mg Atorvastatin Calcium (Lipitor -) 10 mg PO HS [facility] Last Admin: 11/01/17 21:52 Dose: 10 mg Digoxin (Lanoxin -) 0.25 mg PO DAILY [facility] Last Admin: 11/02/17 09:58 Dose: 0.25 mg Furosemide (Lasix Injection -) 40 mg IVPUSH BID@0600,1400 [facility] Last Admin: 11/02/17 06:34 Dose: 40 mg Gabapentin (Neurontin -) 300 mg PO DAILY [facility] Last Admin: 11/02/17 09:58 Dose: 300 mg Insulin Aspart (Novolog Vial Sliding Scale -) 1 vial SQ ACHS [facility] PRN Reason: Protocol Last Admin: 11/02/17 06:34 Dose: 8 units Insulin Aspart (Novolog Mix 70/30 Vial) 30 units SQ BIDAC [facility] Last Admin: 11/02/17 06:34 Dose: 30 units Ipratropium [place] (Atrovent 0.02% Nebulizer -) 1 amp NEB RQID [facility] Last Admin: 11/02/17 07:02 Dose: 1 amp Isosorbide Mononitrate (Imdur -) 60 mg PO DAILY [facility] Last Admin: 11/02/17 09:59 Dose: 60 mg Metoprolol Succinate (Toprol Xl -) 200 mg PO DAILY [facility] Last Admin: 11/02/17 09:59 Dose: 200 mg Prednisone (Deltasone -) 30 mg PO DAILY [facility] Last Admin: 11/02/17 09:57 Dose: 30 mg Ranolazine (Ranexa -) 500 mg PO BID [facility] Last Admin: 11/02/17 09:59 Dose: 500 mg Rivaroxaban (Xarelto -) 20 mg PO DAILY [facility] Last Admin: 11/02/17 09:57 Dose: 20 mg Sodium Chloride ([place] Bal[place] Nasal Balm -) 2 spray NS Q6H PRN PRN Reason: NASAL CONGESTION Last Admin: 10/30/17 13:55 Dose: 2 spray Tamsulosin HCl (Flomax -) 0.4 mg PO DAILY@0830 [facility] Last Admin: 11/02/17 07:55 Dose: 0.4 mg Tramadol HCl (Ultram -) 50 mg PO Q6H PRN Last Admin: 11/02/17 10:01 Dose: 50 mg Zolpidem Tartrate (Ambien -) 5 mg PO HS PRN PRN Reason: INSOMNIA Last Admin: 11/01/17 21:52 Dose: 5 mg - Objective Vital Signs: Vital Signs Temperature 98.8 F 11/02/17 06:00 Pulse Rate 73 11/02/17 09:58 Respiratory Rate 22 11/02/17 06:00 Blood Pressure 127/88 11/02/17 08:56 O2 Sat by Pulse Oximetry (%) 97 11/01/17 21:00 Constitutional: Yes: Well Nourished, Calm Eyes: Yes: WNL HENT: Yes: WNL Neck: Yes: WNL Cardiovascular: Yes: Pulse Irregular, S1, S2 Respiratory: Yes: Diminished Gastrointestinal: Yes: Normal Bowel Sounds, Soft Extremities: Yes: WNL Edema: Yes Labs: CBC, BMP 11/02/17 09:25 11/02/17 09:25 - ....Imaging Chest X-ray: Report Reviewed, Image Reviewed (no change) Problem List - Problems (1) Atrial fibrillation Code(s): I48.91 - UNSPECIFIED ATRIAL FIBRILLATION Qualifiers: Atrial fibrillation type: chronic Qualified Code(s): I48.2 - Chronic atrial fibrillation (2) CHF (congestive heart failure) Code(s): I50.9 - HEART FAILURE, UNSPECIFIED Qualifiers: Congestive heart failure type: unspecified congestive heart failure type Congestive heart failure chronicity: acute on chronic (3) COPD (chronic obstructive pulmonary disease) Code(s): J44.9 - CHRONIC OBSTRUCTIVE PULMONARY DISEASE, UNSPECIFIED Qualifiers: COPD type: unspecified COPD Qualified Code(s): J44.9 - Chronic obstructive pulmonary disease, unspecified (4) Acute exacerbation of chronic obstructive pulmonary disease (COPD) Code(s): J44.1 - CHRONIC OBSTRUCTIVE PULMONARY DISEASE W (ACUTE) EXACERBATION (5) Cough Code(s): R05 - COUGH (6) Diabetes mellitus Code(s): E11.9 - TYPE 2 DIABETES MELLITUS WITHOUT COMPLICATIONS (7) Elevated troponin Code(s): R74.8 - ABNORMAL LEVELS OF OTHER SERUM ENZYMES (8) H/O heart artery stent Code(s): Z95.5 - PRESENCE OF CORONARY ANGIOPLASTY IMPLANT AND GRAFT (9) Pneumonia Code(s): J18.9 - PNEUMONIA, UNSPECIFIED ORGANISM Qualifiers: Pneumonia type: due to unspecified organism Laterality: left Lung location: lower lobe of lung Qualified Code(s): J18.1 - Lobar pneumonia, unspecified organism (10) Dyspnea Code(s): R06.00 - DYSPNEA, UNSPECIFIED Assessment/Plan IMP DYSPNEA IMPROVING R PLEURAL EFFUSION ACUTE ON CHRONIC CHF ASHD S/P STENT AFIB S/P RECENT ABLATION DM + TROPONIN PLAN LASIX TAPER STEROIDS O2 INHALED BRONCHODILATORS F/U CHEST X-RAYS DAILY WTS DR GOMEZ Problem List - Problems (1) Atrial fibrillation Code(s): I48.91 - UNSPECIFIED ATRIAL FIBRILLATION Qualifiers: Atrial fibrillation type: chronic Qualified Code(s): I48.2 - Chronic atrial fibrillation (2) CHF (congestive heart failure) Code(s): I50.9 - HEART FAILURE, UNSPECIFIED Qualifiers: Congestive heart failure type: unspecified congestive heart failure type Congestive heart failure chronicity: acute on chronic Qualified Code(s): I50.9 - Heart failure, unspecified (3) COPD (chronic obstructive pulmonary disease) Code(s): J44.9 - CHRONIC OBSTRUCTIVE PULMONARY DISEASE, UNSPECIFIED Qualifiers: COPD type: unspecified COPD Qualified Code(s): J44.9 - Chronic obstructive pulmonary disease, unspecified (4) Acute exacerbation of chronic obstructive pulmonary disease (COPD) Code(s): J44.1 - CHRONIC OBSTRUCTIVE PULMONARY DISEASE W (ACUTE) EXACERBATION (5) Cough Code(s): R05 - COUGH (6) Diabetes mellitus Code(s): E11.9 - TYPE 2 DIABETES MELLITUS WITHOUT COMPLICATIONS (7) Elevated troponin Code(s): R74.8 - ABNORMAL LEVELS OF OTHER SERUM ENZYMES (8) H/O heart artery stent Code(s): Z95.5 - PRESENCE OF CORONARY ANGIOPLASTY IMPLANT AND GRAFT (9) Pneumonia Code(s): J18.9 - PNEUMONIA, UNSPECIFIED ORGANISM Qualifiers: Pneumonia type: due to unspecified organism Laterality: left Lung location: lower lobe of lung Qualified Code(s): J18.1 - Lobar pneumonia, unspecified organism (10) Dyspnea Code(s): R06.00 - DYSPNEA, UNSPECIFIED
--- NOTE | 2017-11-02 13:23 | PN ---
Progress Note, Physician Chief Complaint: sob, edema improving No further chest pain tele aflutter with controlled VR History of Present Illness: 62 year-old man with a PMH of paroxysmal atrial fibrillation, s/p atrial fibrillation in 10/04/2017 at [facility], COPD, HTN, HLD, DM and CAD s/p LAD PCI/stent in 2014, NSTEMI s/p cardiac cath at [facility] 05/07/2017 which revealed patent LAD stent, non-obstructive LCx and RCA. But the small ramus has severre 95% stenosis, not amendable for PCI because of the size of the vessel admitted 2017 for pneumonia and CHF. He was seen by Pulmonary for pneumonia and receiving Lasix for CHF. Tele shows atrial flutter with variable AV block and rapid VR. He is ruling in for NSTEMI. He had brief left upper chest pain different from his usual ischemia pain this am. Better now. Echo 10/30/17 borderline EF mild mr small basilio effusion, pl effusion. - Current Medication List Current Medications: Active Medications Aspirin (Asa -) 81 mg PO DAILY [facility] Last Admin: 11/02/17 09:58 Dose: 81 mg Atorvastatin Calcium (Lipitor -) 10 mg PO HS [facility] Last Admin: 11/01/17 21:52 Dose: 10 mg Digoxin (Lanoxin -) 0.25 mg PO DAILY [facility] Last Admin: 11/02/17 09:58 Dose: 0.25 mg Gabapentin (Neurontin -) 300 mg PO DAILY [facility] Last Admin: 11/02/17 09:58 Dose: 300 mg Insulin Aspart (Novolog Vial Sliding Scale -) 1 vial SQ ACHS [facility] PRN Reason: Protocol Last Admin: 11/02/17 12:18 Dose: Not Given Insulin Aspart (Novolog Mix 70/30 Vial) 30 units SQ BIDAC [facility] Last Admin: 11/02/17 06:34 Dose: 30 units Ipratropium [place] (Atrovent 0.02% Nebulizer -) 1 amp NEB RQID [facility] Last Admin: 11/02/17 11:42 Dose: Not Given Isosorbide Mononitrate (Imdur -) 60 mg PO DAILY [facility] Last Admin: 11/02/17 09:59 Dose: 60 mg Metoprolol Succinate (Toprol Xl -) 200 mg PO DAILY [facility] Last Admin: 11/02/17 09:59 Dose: 200 mg Prednisone (Deltasone -) 20 mg PO DAILY [facility] Ranolazine (Ranexa -) 500 mg PO BID [facility] Last Admin: 11/02/17 09:59 Dose: 500 mg Rivaroxaban (Xarelto -) 20 mg PO DAILY [facility] Last Admin: 11/02/17 09:57 Dose: 20 mg Sodium Chloride ([place] Nasal [place] -) 2 spray NS Q6H PRN PRN Reason: NASAL CONGESTION Last Admin: 10/30/17 13:55 Dose: 2 spray Tamsulosin HCl (Flomax -) 0.4 mg PO DAILY@0830 [facility] Last Admin: 11/02/17 07:55 Dose: 0.4 mg Tramadol HCl (Ultram -) 50 mg PO Q6H PRN Last Admin: 11/02/17 10:01 Dose: 50 mg Zolpidem Tartrate (Ambien -) 5 mg PO HS PRN PRN Reason: INSOMNIA Last Admin: 11/01/17 21:52 Dose: 5 mg - Objective Vital Signs: Vital Signs Temperature 98.8 F 11/02/17 06:00 Pulse Rate 73 11/02/17 09:58 Respiratory Rate 22 11/02/17 06:00 Blood Pressure 127/88 11/02/17 08:56 O2 Sat by Pulse Oximetry (%) 97 11/01/17 21:00 Constitutional: Yes: No Distress Eyes: Yes: Conjunctiva Clear HENT: Yes: Atraumatic, Normocephalic Neck: Yes: Supple, Trachea Midline Cardiovascular: Yes: Pulse Irregular Respiratory: Yes: Regular, CTA Bilaterally Gastrointestinal: Yes: Normal Bowel Sounds, Soft Edema: Yes Edema: LLE: Trace, RLE: Trace Peripheral Pulses WNL: Yes Labs: CBC, BMP 11/02/17 09:25 11/02/17 09:25 Problem List - Problems (1) Atrial fibrillation Assessment/Plan: S/p atrial fibrillation in 10/04/2017 at [facility]. Now he has atrial flutter with improved VR control. Continue Metoprolol succinate 200 mg daily Continue Xarelto for stroke prevention. No need for telemetry. Code(s): I48.91 - UNSPECIFIED ATRIAL FIBRILLATION Qualifiers: Atrial fibrillation type: chronic Qualified Code(s): I48.2 - Chronic atrial fibrillation (2) CHF (congestive heart failure) Assessment/Plan: 1) CHF, likely acute diastolic CHF with physical signs of fluid overload and elevated pro-BNP. Change lasix to PO 40 mg bid. Monitor electrolytes and renal function. Echo borderline EF, small pericardial effusion mild mr. cxr rt pl eff small with atalectasis, no congestive changes. stable for DC with out patient fu from a cardiologic standpoint. Code(s): I50.9 - HEART FAILURE, UNSPECIFIED Qualifiers: Congestive heart failure type: unspecified congestive heart failure type Congestive heart failure chronicity: acute on chronic (3) Elevated troponin Assessment/Plan: Medical management for now. I have reviewed his cath films from April and he has a small ramus with a tight lesion not amenable to PCI. Code(s): R74.8 - ABNORMAL LEVELS OF OTHER SERUM ENZYMES
--- NOTE | 2017-11-02 14:17 | DS ---
Physical Examination Vital Signs: Vital Signs Temperature 98.8 F 11/02/17 06:00 Pulse Rate 73 11/02/17 09:58 Respiratory Rate 22 11/02/17 06:00 Blood Pressure 127/88 11/02/17 08:56 O2 Sat by Pulse Oximetry (%) 97 11/01/17 21:00 Constitutional: Yes: No Distress Eyes: Yes: WNL HENT: Yes: WNL Neck: Yes: WNL Cardiovascular: Yes: WNL Respiratory: Yes: WNL Gastrointestinal: Yes: WNL Renal/: Yes: WNL Musculoskeletal: Yes: WNL Extremities: Yes: WNL Edema: No Peripheral Pulses WNL: Yes Integumentary: Yes: WNL Wound/Incision: Yes: Clean/Dry Neurological: Yes: WNL ...Motor Strength: WNL Psychiatric: Yes: WNL Labs: CBC, BMP 11/02/17 09:25 11/02/17 09:25 Discharge Summary Reason For Visit: CHRONIC OBSTRUCTIVE PULMONARY DISEQSE WITH ACUTE Current Active Problems Atrial fibrillation (Acute) CHF (congestive heart failure) (Acute) COPD (chronic obstructive pulmonary disease) (Acute) Hospital Course: ADMITTED CHF ACUTE ON CHRONIC WITH COPD, TREATED IV LASIX AND STEROIDS, CARDIAC WORKUP COMPLETED [facility] HOME Condition: Guarded - Instructions Diet, Activity, Other Instructions: LOW SALT WATER 2 LITER DAILY RESTRICTION Referrals: Harinder Hardy MD [Primary Care Provider] - Randy Manuel MD [Staff Physician] - Disposition: VNS/HOME HEALTH CARE - Home Medications Comprehensive Discharge Medication List: Ambulatory Orders Insulin Glargine,Hum.rec.anlog [Basaglar Kwikpen U-100] 30 unit SQ HS 07/09/17 Aspirin [ASA -] 81 mg PO DAILY #0 tab 07/11/17 Glimepiride [Amaryl -] 4 mg PO DAILY@0700 #0 tab 07/11/17 Simvastatin [Zocor -] 20 mg PO DAILY #0 tab 07/11/17 Furosemide [Lasix] 40 mg PO BID 10/26/17 Gabapentin 300 mg PO DAILY 10/26/17 Insulin (Novolog 70/30) [Novolog Mix 70/30 Vial -] 10 units SQ BIDAC 10/26/17 Metoprolol Succinate [Toprol XL -] 100 mg PO DAILY 10/26/17 Rivaroxaban [Xarelto -] 20 mg PO DAILY 10/26/17 Sacubitril/Valsartan [Entresto 24 mg-26 mg Tablet] 1 each PO BID 10/26/17 Tamsulosin HCl [Flomax -] 0.4 mg PO DAILY 10/26/17 Digoxin [Lanoxin -] 0.25 mg PO DAILY #30 tablet 11/02/17 Insulin (Levemir) [Levemir Vial] 10 units SQ BID ml 11/02/17 Insulin (Novolog 70/30) [Novolog Mix 70/30 Vial -] 30 units SQ BIDAC vial 11/02 Ipratropium 0.02% Nebulizer [Atrovent 0.02% Nebulizer -] 1 amp NEB RQID #120 amp 11/02/17 Isosorbide Mononitrate [Imdur -] 60 mg PO DAILY #30 tab.sr.24h 11/02/17 Prednisone [Deltasone -] 20 mg PO DAILY #10 tablet 11/02/17 Ranolazine [Ranexa -] 500 mg PO BID #60 tab 11/02/17
[2017-11-03] MEDS ORDERED: predniSONE 20 MG TABLET (UD) PO SCH (10:00)
== END 2017-11-02 14:59 | disposition home health service (06) | DRG 194 ==
LOC: JER 12:20 → JERBED 18:59 → J8W 23:40 → J4W 10-27 19:17
PROVIDERS: ADMIT Family Medicine; ATTEND Family Medicine
DX: I11.0 Hypertensive heart disease with heart failure (principal); I50.33 Acute on chronic diastolic (congestive) heart failure; I21.A1 Myocardial infarction type 2; J18.9 Pneumonia, unspecified organism; J44.1 Chronic obstructive pulmonary disease with (acute) exacerbation; Z79.01 Long term (current) use of anticoagulants; I48.0 Paroxysmal atrial fibrillation; E78.5 Hyperlipidemia, unspecified; Z95.5 Presence of coronary angioplasty implant and graft; Z87.891 Personal history of nicotine dependence; Z79.4 Long term (current) use of insulin; E80.6 Other disorders of bilirubin metabolism; I25.10 Atherosclerotic heart disease of native coronary artery without angina pectoris; I48.92 Unspecified atrial flutter; E11.65 Type 2 diabetes mellitus with hyperglycemia; E88.81 Metabolic syndrome and other insulin resistance
CPT/HCPCS: 36415; 71045-TC; 71250-TC; 76705-TC; 80048; 80053; 81003; 81015; 82550; 82553; 82947; 82962; 83735; 83880; 84100; 84443; 84484; 85025; 85027; 86803; 87040; 87086; 87389; 87804; 87899; 93005; 93010; 93306-TC; 93970-TC; 94640; 99284-25

== ENCOUNTER 2018-08-27 07:34 | Inpatient (IN) | payer OTHER ==
--- NOTE | 2018-08-27 08:29 | PDOC ---
History of Present Illness - General Chief Complaint: Respiratory Stated Complaint: COUGHING BLOOD Time Seen by Provider: 08/27/18 07:51 History Source: Patient Exam Limitations: No Limitations - History of Present Illness Initial Comments: 08/27/18 08:22 Pt is a 63yo m with PMH of COPD, CAD s/p stent, diastolic CHF, Afib (s/p ablation), DM, HTN, HLD, BPH presenting to ED with complaint of hemoptysis x3days. Pt said he has had cold like symptoms for about 3 weeks with cough productive of green/yellow phlegm but noticed dark red streaks 3 days ago with every cough. He denies fever, weight loss, recent travel, abdominal pain, n/v/d , blood in stools or hematuria. He admits to chest pain from cough, headaches and thigh swelling which pt says he has had for months. He was hospitalized here in April for MRSA cellulitis and still has open wounds on his legs. He admits to SOB with exertion, not at rest. He has an inhaler and nebulizer but it has not helped out with his symptoms. He is not on oxygen at home. Pt quit smoking 1.5 years ago (was smoking around 2-3 cigarettes daily for more than 40 years). PMD: Hayley Harvey: [place] Cardioloist: T PMH: see hpi PSH: ablation, hernia repair, cholecystectomy Meds: ASA, Xarelto, Novolog, simvastatin, metoprolol, gabapentin, tramadol, lasix, flomax Social: quit smoking 1.5 years ago Allergies: nkda Past History - Past Medical History Allergies/Adverse Reactions: Allergies Allergy/AdvReac Type Severity Reaction Status Date / Time No Known Allergies Allergy Verified 08/27/18 07:42 Home Medications: Ambulatory Orders Insulin Glargine,Hum.rec.anlog [Basaglar Kwikpen U-100] 30 unit SQ HS 07/09/17 Aspirin [ASA -] 81 mg PO DAILY #0 tab 07/11/17 Glimepiride [Amaryl -] 4 mg PO DAILY@0700 #0 tab 07/11/17 Simvastatin [Zocor -] 20 mg PO DAILY #0 tab 07/11/17 Furosemide [Lasix] 40 mg PO BID 10/26/17 Gabapentin 300 mg PO DAILY 10/26/17 Metoprolol Succinate [Toprol XL -] 100 mg PO DAILY 10/26/17 Rivaroxaban [Xarelto -] 20 mg PO DAILY 10/26/17 Tamsulosin HCl [Flomax -] 0.4 mg PO DAILY 10/26/17 Ipratropium 0.02% Nebulizer [Atrovent 0.02% Nebulizer -] 1 amp NEB RQID #120 amp 11/02/17 Isosorbide Mononitrate [Imdur -] 60 mg PO DAILY #30 tab.sr.24h 11/02/17 Digoxin [Lanoxin -] 0.125 mg PO DAILY #30 tablet MDD 1 05/09/18 Potassium Chloride [K-Dur -] 20 meq PO DAILY #20 tablet.er MDD 1 05/09/18 traMADol HCL [Ultram -] 50 mg PO Q6H PRN #10 tablet MDD 4 05/09/18 Insulin NPH Hum/Reg Insulin Hm [Novolin 70-30 100 Unit/ml Vial] 10 unit SQ BID 08/27/18 Sacubitril/Valsartan [Entresto 49 mg-51 mg Tablet] 1 tab PO DAILY 08/27/18 Anemia: No Asthma: No Cancer: No Cardiac Disorders: Yes (A-fib) CVA: No COPD: Yes CHF: No Dementia: Yes (TYPE 2) Diabetes: Yes (niddm) GI Disorders: No Disorders: Yes (urinary retention) HTN: Yes Hypercholesterolemia: Yes Liver Disease: Yes ([facility] JOHN SYNDROME) Seizures: No Thyroid Disease: No - Surgical History Abdominal Surgery: Yes (Hernia repair x2) Appendectomy: No Cardiac Surgery: Yes (1 STENT) Cholecystectomy: Yes Lung Surgery: No Neurologic Surgery: No Orthopedic Surgery: No - Immunization History Immunization Up to Date: Yes - Suicide/Smoking/Psychosocial Hx Smoking History: Former smoker Have you smoked in the past 12 months: No Number of Cigarettes Smoked Daily: 4 If you are a former smoker, when did you quit?: 2017 Information on smoking cessation initiated: No 'Breaking Loose' booklet given: 10/26/17 Hx Alcohol Use: No Drug/Substance Use Hx: No Substance Use Type: None Hx Substance Use Treatment: No Review of Systems - Review of Systems Constitutional: Yes: Chills. No: Fever, Unintentional Wgt. Loss HEENTM: Yes: Nose Congestion, Nose Bleeding. No: Ear Pain, Throat Pain Respiratory: Yes: See HPI, Cough, SOB with Exertion, Productive cough, Hemoptysis Cardiac (ROS): Yes: Chest Pain. No: Lightheadedness, Palpitations, Syncope ABD/GI: Yes: Constipated. No: Diarrhea, Nausea, Rectal Bleeding, Vomiting, Tarry Stools : Yes: Frequency. No: Burning, Dysuria, Flank Pain, Hematuria Musculoskeletal: No: Back Pain, Joint Pain, Muscle Weakness Integumentary: Yes: Erythema, Lesions (BLE erythema with open lesions), Rash Neurological: Yes: Headache, Numbness (BLE from neuropathy) Hematologic/Lymphatic: No: Blood Clots *Physical Exam - Vital Signs Last Vital Signs Temp Pulse Resp BP Pulse Ox 98.6 F 77 20 169/90 97 08/27/18 07:35 08/27/18 07:35 08/27/18 07:35 08/27/18 07:35 08/27/18 07:35 - Physical Exam General Appearance: Yes: Nourished, Appropriately Dressed. No: Apparent Distress HEENT: positive: EOMI, LAINE. negative: Pale Conjunctivae, Scleral Icterus (R), Scleral Icterus (L), Sinus Tenderness Neck: positive: Trachea midline, Supple. negative: Lymphadenopathy (R), Lymphadenopathy (L) Respiratory/Chest: positive: Decreased Breath Sounds (decreased breath sounds in L field). negative: Labored Respiration, Crackles, Rales, Rhonchi, Stridor, Wheezing Cardiovascular: positive: Regular Rhythm, Regular Rate, S1, S2. negative: Edema , JVD, Murmur Vascular Pulses: Carotid (R): 2+, Carotid (L): 2+, Dorsalis-Pedis (R): 0, Doralis-Pedis (L): 0 Gastrointestinal/Abdominal: positive: Normal Bowel Sounds, Soft. negative: Distended, Guarding, Rebound Musculoskeletal: negative: CVA Tenderness Extremity: positive: Normal Capillary Refill, Swelling (non pitting thigh swelling, not erythematous), Erythema (calf erythem without warmth with open wounds). negative: Pedal Edema, Calf Tenderness Integumentary: positive: Normal Color, Dry, Warm. 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 Pt said he has had cold like symptoms for about 3 weeks with cough productive of green/yellow phlegm but noticed dark red streaks 3 days ago Vitals: Selected Entries 08/27/18 07:35 Temperature 98.6 F Pulse Rate 77 Respiratory 20 Rate Blood Pressure 169/90 O2 Sat by Pulse 97 Oximetry (%) PE: decreased breath sounds in L lung saucedo DDx: COPD exacerbation, malignancy, TB, PE, pna, ACS -Pt is on xarelto, vitals stable. low suspicion for PE TB possible however lower suspicion give pt is afebrile, no recent travel, lives alone. Will order CXR, EKG, cbc, cmp 08/27/18 09:10 EKG: sinus with 1st degree AV block. normal axis, T wave inversions in I, II, aVR, aVL, aVF, V2, V3, V5, V6. T wave flattened in III, V4, V2. MI 212, QTc 435 CXR: prominent angel and well expanded lung saucedo, nodular denisyt in R rinku demonstrated on CT from 05/05/2018. Prominent sclerotic knob. No acute pathology Laboratory Tests 08/27/18 08/27/18 08:40 08:40 WBC 7.7 Hgb 12.4 Hct 36.8 RDW 16.5 H Plt Count 274 BUN 24 H Creatinine 1.2 Random Glucose 277 H Calcium 8.4 L Total Bilirubin 4.3 H Alkaline Phosphatase 133 H Troponin I 0.44 H Albumin 3.2 L Previous 10 months ago in October was 0.14. Previous EKG April 2018: Flattened T in I, aVR, aVL, V4, V5, V6. MI 140 QTc 496 Pt took 81mg ASA this morning. Will give 162mg ASA. Paged Dr. Amaya, will be admitted for elevated troponin. Problem List: NSTEMI MRSA Cough/congestion Hemoptysis *DC/Admit/Observation/Transfer Diagnosis at time of Disposition: Elevated troponin, NSTEMI (non-ST elevated myocardial infarction), Hemoptysis - Discharge Dispostion Condition at time of disposition: Good Decision to Admit order: Yes - Referrals Referrals: Harinder Hardy MD [Primary Care Provider] - - Patient Instructions - Post Discharge Activity
[2018-08-27 08:45] LABS: EOS % 1.7 % (0-4.5); HEMATOCRIT 36.8 % (35.4-49); HEMOGLOBIN 12.4 GM/dL (11.7-16.9); MCHC 33.6 g/dl (32.0-35.9); MEAN CELL VOLUME 80.3 fl (80-96); MONO % 7.6 % (3.8-10.2); NEUT % 74.7 % (42.8-82.8); PLATELET COUNT 274 K/MM3 (134-434); RBC 4.58 M/mm3 (4.00-5.60); RDW 16.5 % (11.9-15.9); WHITE BLOOD COUNT 7.7 K/mm3 (4.0-10.0)
[2018-08-27 09:13] LABS: ALBUMIN 3.2 g/dl (3.4-5.0); ALK PHOS 133 U/L (45-117); ANION GAP 9 MMOL/L (8-16); BILIRUBIN,TOTAL 4.3 mg/dL (0.2-1); BLOOD UREA NITROGEN 24 mg/dL (7-18); CALCIUM 8.4 mg/dL (8.5-10.1); CHLORIDE 101 mmol/L (98-107); CO2 29 mmol/L (21-32); CREATININE 1.2 mg/dL (0.55-1.3); GLUCOSE,RANDOM 277 mg/dL (74-106); POTASSIUM 3.8 mmol/L (3.5-5.1); SGOT/AST 30 U/L (15-37); SGPT/ALT 52 U/L (13-61); SODIUM 139 mmol/L (136-145); TOT PROT 6.8 g/dl (6.4-8.2)
[2018-08-27] MEDS ORDERED: ASPIRIN 81 MG CHEWABLE TABLETS PO ONE (09:51)
--- NOTE | 2018-08-27 09:57 | PDOC ---
Attending Attestation - Resident Resident Name: Meg Villafana - ED Attending Attestation I have performed the following: I have examined & evaluated the patient, The case was reviewed & discussed with the resident, I agree w/resident's findings & plan - HPI HPI: 08/27/18 09:57 63-year-old male with multiple medical problems including COPD presents with cough and chest congestion and wheezing for 3 weeks, now with occasional blood- tinged sputum for 3 days. Chills but no fever, no night sweats, no chest pain or lung pain. Has been taking his home nebulizers only temporary improvement, presents today for evaluation given the blood-tinged sputum. He is on xarelto for afib, had an episode of epistaxis that was brief yesterday, otherwise denies any other bleeding dyscrasias No exertional or positional chest pain, no nausea or vomiting. - Physicial Exam PE: 08/27/18 10:04 I'll signs stable Well-appearing, speaking full sentences Slight crackles at the right base, lungs are otherwise clear with only slight and expiratory wheeze, no prolonged expiration, no accessory muscle use Nonpitting edema which is chronic - Medical Decision Making 08/27/18 10:04 63-year-old male with cardiac history and COPD presents with cough and wheezing for 3 weeks and now mild hemoptysis, no acute respiratory distress here. Presentation seems most consistent with COPD exacerbation, rule out pneumonia. History is less consistent with ACS. Labs notable for troponin more elevated than usual, baseline is 0.15-0.2 but today is 0.4. EKG shows no acute ST changes but some T wave inversions in the lateral leads Chest x-ray showed no acute infectious process Will need admission for further cardiac workup, will start on steroids for persistent COPD exacerbation Heart Score/ECG Review #1 ECG reviewed & interpreted by me at: 08:42 General ECG Interpretation: Sinus Rhythm, Normal Rate (75), Normal Intervals ( qtc 435), No acute ischemic changes (twi inf and lateral leads) Compared to previous ECG there are: Changes noted (c/w 05/08, prior t wave flattening, now inverted)
[2018-08-27] MEDS ORDERED: methylPREDNISolone NA SUCC 125 MG/2 ML VIAL IVPB ONE (10:07)
[2018-08-27] MEDS ORDERED: AZITHROMYCIN 500 MG TABLET PO ONE (10:07)
[2018-08-27] MEDS ORDERED: ASPIRIN 81 MG CHEWABLE TABLETS ONE (10:36)
[2018-08-27] MEDS ORDERED: methylPREDNISolone NA SUCC 125 MG/2 ML VIAL ONE (10:36)
[2018-08-27] MEDS ORDERED: AZITHROMYCIN 500 MG TABLET ONE (10:36)
[2018-08-27 11:19] LABS: URINE APPEARANCE CLEAR; URINE COLOR AMBER; URINE GLUCOSE (UA) 3+ (NEGATIVE); URINE KETONE NEGATIVE (NEGATIVE); URINE LEUK ESTERASE NEGATIVE (NEGATIVE); URINE NITRITE NEGATIVE (NEGATIVE); URINE PROTEIN 3+ (NEGATIVE); URINE UROBILINOGEN 4.0 E.U/dl mg/dL (0.2-1.0)
[2018-08-27 11:32] LABS: EPI CELLS RARE /HPF (FEW)
--- NOTE | 2018-08-27 12:49 | HP ---
Admitting History and Physical - Primary Care Physician PCP: Aisha Amaya - Admission Chief Complaint: came in for coughing History of Present Illness: 63-year-old male with multiple medical problems including COPD presents with cough and chest congestion and wheezing for 3 weeks, now with occasional blood- tinged sputum for 3 days. Chills but no fever, no night sweats, no chest pain or lung pain. Has been taking his home nebulizers only temporary improvement, presents today for evaluation given the blood-tinged sputum. He is on xarelto for afib, had an episode of epistaxis that was brief yesterday, otherwise denies any other bleeding dyscrasias No exertional or positional chest pain, no nausea or vomiting. History Source: Patient, Medical Record - Past Medical History Cardiovascular: Yes: AFIB, CAD, CHF, HTN, Hyperlipdemia, NC Pulmonary: Yes: COPD, Other (pleural effusion). 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 History of Recent Travel: No Home Medications - Allergies Allergies/Adverse Reactions: Allergies Allergy/AdvReac Type Severity Reaction Status Date / Time No Known Allergies Allergy Verified 08/27/18 07:42 - Home Medications Home Medications: Ambulatory Orders Insulin Glargine,Hum.rec.anlog [Basaglar Tracyikpen U-100] 30 unit SQ HS 07/09/17 Aspirin [ASA -] 81 mg PO DAILY #0 tab 07/11/17 Glimepiride [Amaryl -] 4 mg PO DAILY@0700 #0 tab 07/11/17 Simvastatin [Zocor -] 20 mg PO DAILY #0 tab 07/11/17 Furosemide [Lasix] 40 mg PO BID 10/26/17 Gabapentin 300 mg PO DAILY 10/26/17 Metoprolol Succinate [Toprol XL -] 100 mg PO DAILY 10/26/17 Rivaroxaban [Xarelto -] 20 mg PO DAILY 10/26/17 Tamsulosin HCl [Flomax -] 0.4 mg PO DAILY 10/26/17 Ipratropium 0.02% Nebulizer [Atrovent 0.02% Nebulizer -] 1 amp NEB RQID #120 amp 11/02/17 Isosorbide Mononitrate [Imdur -] 60 mg PO DAILY #30 tab.sr.24h 11/02/17 Digoxin [Lanoxin -] 0.125 mg PO DAILY #30 tablet MDD 1 05/09/18 Potassium Chloride [K-Dur -] 20 meq PO DAILY #20 tablet.er MDD 1 05/09/18 traMADol HCL [Ultram -] 50 mg PO Q6H PRN #10 tablet MDD 4 05/09/18 Insulin NPH Hum/Reg Insulin Hm [Novolin 70-30 100 Unit/ml Vial] 10 unit SQ BID 08/27/18 Sacubitril/Valsartan [Entresto 49 mg-51 mg Tablet] 1 tab PO DAILY 08/27/18 Family Disease History - Family Disease History Family Disease History: Other: Father (dialysis) Review of Systems - Review of Systems Respiratory: reports: Cough Physical Examination Vital Signs: Vital Signs Temperature 98.6 F 08/27/18 11:59 Pulse Rate 68 08/27/18 11:59 Respiratory Rate 18 08/27/18 11:59 Blood Pressure 177/113 H 08/27/18 11:59 O2 Sat by Pulse Oximetry (%) 96 08/27/18 11:59 Constitutional: Yes: Calm Cardiovascular: Yes: Regular Rate and Rhythm, S1, S2 Respiratory: Yes: Diminished Gastrointestinal: Yes: Normal Bowel Sounds, Soft Extremities: Yes: Other (wound on the left leg noted) Edema: Yes Labs: CBC, BMP 08/27/18 08:40 08/27/18 08:40 Imaging - Results Chest X-ray: Report Reviewed (lung nodules) Problem List - Problems (1) Elevated troponin Assessment/Plan: trend troponin telemetry echo cardiology eval got aspirin in ER Code(s): R74.8 - ABNORMAL LEVELS OF OTHER SERUM ENZYMES (2) Hemoptysis Assessment/Plan: is on AC for afib possible pna got zithromycin in ERiv abx ct scan chest Code(s): R04.2 - HEMOPTYSIS (3) Acute exacerbation of chronic obstructive pulmonary disease (COPD) Assessment/Plan: nebulizer iv steroids oxygen as needed pulm consult ct lung without contrast to look at lung nodule Code(s): J44.1 - CHRONIC OBSTRUCTIVE PULMONARY DISEASE W (ACUTE) EXACERBATION (4) Atrial fibrillation Assessment/Plan: digoxin,toprol xarelto- will hold given hemoptysis till seen by cardiology Code(s): I48.91 - UNSPECIFIED ATRIAL FIBRILLATION (5) Diabetes mellitus Assessment/Plan: insulin hgba1c,bgm sliding scale Code(s): E11.9 - TYPE 2 DIABETES MELLITUS WITHOUT COMPLICATIONS Qualifiers: Diabetes mellitus type: type 2
--- NOTE | 2018-08-27 14:05 | ECHO ---
Name: VERA TOLBERT Exam:Adult Echocardiogram Study Date: 08/27/2018 01:19 PM Age: 63 yrs Reason For Study: Wall Motion Height: 72 in Weight: 199 lb BSA: 2.1 m2 MMode/2D Measurements & Calculations IVSd: 1.3 cm Ao root diam: 3.4 cm LVIDd: 4.0 cm ACS: 1.8 cm LVIDs: 3.1 cm LVPWd: 1.4 cm EDV(Teich): 70.3 ml LVOT diam: 2.2 cm ESV(Teich): 37.2 ml RV S Lan: 11.1 cm/sec Doppler Measurements & Calculations TR max lan: 257.0 cm/sec PI end-d lan: 171.3 cm/sec TR max P.4 mmHg Med Peak E' Lan: 5.9 cm/sec Lat Peak E' Lan: 7.3 cm/sec Procedure A complete two-dimensional transthoracic echocardiogram was performed (2D, M-mode, Doppler and color flow Doppler). The study was technically difficult with many images being suboptimal in quality. Left Ventricle There is mild concentric left ventricular hypertrophy. The left ventricular ejection fraction is norm al. Ejection Fraction = 55%. Right Ventricle The right ventricle is normal size. There is normal right ventricular wall thickness. The right ventr icular systolic function is mildly reduced. Atria The left atrial size is normal. The right atrium is mildly dilated. Mitral Valve The mitral valve is normal in structure and function. Tricuspid Valve The tricuspid valve is not well visualized, but is grossly normal. There is mild tricuspid regurgitat ion. Right ventricular systolic pressure is elevated at 46 mmhg. There is mild pulmonary hypertension. Aortic Valve There is mild aortic sclerosis.;. Pulmonic Valve The pulmonic valve is normal in structure and function. Mild pulmonic valvular regurgitation. Great Vessels The aortic root is normal size. Pericardium/Pleura Small pericardial effusion (<1cm). Interpretation Summary The study was technically difficult with many images being suboptimal in quality. The left ventricular ejection fraction is normal. The right ventricular systolic function is mildly reduced. The right atrium is mildly dilated. There is mild pulmonary hypertension. Small pericardial effusion (<1cm) Luther Reynoso 08/27/2018 02:05 PM
[2018-08-27] MEDS ORDERED: IPRATROPIUM BR 0.02% 0.5 MG/2.5 ML VIAL.NEB. NEB ONE (14:41)
[2018-08-27] MEDS: IPRATROPIUM BR 0.02% 0.5 MG/2.5 ML VIAL.NEB. NEB PRN ×2 (14:42→21:18)
--- NOTE | 2018-08-27 15:31 | CONSULT ---
Consultation: REQUESTING PROVIDER: CONSULT REQUEST: We have been asked to medically evaluate this patient for elevated troponins HISTORY OF PRESENT ILLNESS: The patient is a 63 year old man with a PMHx of recent ablation for A.Fib at [facility], HTN, diastolic CHF with borderline reduced LVEF from echocardiogram on 10/2017, CAD s/p LAD PCI/stent in 2014, NSTEMI s/p cardiac cath at [facility] 04/2017 which revealed patent LAD stent, non-obstructive LCx paroxysmal atrial fibrillation, s/p atrial fibrillation in 10/04/2017 at [facility], atrial flutter in October 2017. The patient is admitted to the hospital for URI with hemoptysis and was found to have elevated troponin. When I saw the patient he has been complaining of cough that has been present for the past 3 weeks. He is bringing up yellowish phlegm and for the past 3 days noticed small amounts of blood also coming from his nose. He also reports feeling "hot" but denies having fever, chills. He denies chest pain, palpitation, syncope. He is compliant with his home medications. PMH: DM-II, hyperlipidemia, COPD, lower extremities wounds due to MRSA PSH: ablation, hernia repair, cholecystectomy SH: quit smoking in 2017, used to smoke 2-3 cigs/40 years, no alsohol/drugs REVIEW OF SYSTEMS: CONSTITUTIONAL: Absent: fever, chills, diaphoresis, generalized weakness, malaise HEENT: Absent: rhinorrhea, nasal congestion, throat pain CARDIOVASCULAR: Absent: chest pain, syncope, palpitations, irregular heart rate, lightheadedness , peripheral edema RESPIRATORY: hemoptysis, cough, Absent: shortness of breath, dyspnea with exertion, orthopnea, wheezing GASTROINTESTINAL: Absent: abdominal pain, abdominal distension, nausea, vomiting NEUROLOGIC: Absent: headache, focal weakness o PHYSICAL EXAMINATION Vital Signs - 24 hr 08/27/18 08/27/18 08/27/18 07:35 08:53 11:59 Temperature 98.6 F 98.6 F Pulse Rate 77 Pulse Rate [ 68 Left Radial] Respiratory 20 18 Rate Blood Pressure 169/90 Blood Pressure 177/113 H [Right Arm] O2 Sat by Pulse 97 97 96 Oximetry (%) GENERAL: Awake, alert, and fully oriented, in no acute distress. HEAD: Normal with no signs of trauma. EYES: Extraocular movements intact, sclera anicteric, conjunctiva clear. EARS, NOSE, THROAT: Ears normal, nares patent, oropharynx clear without exudates. Moist mucous membranes. NECK: Normal range of motion, supple without lymphadenopathy, JVD, or masses. LUNGS: Occasional crackles and rhonchi bilaterally. no wheezes. No accessory muscle use. HEART: Regular rate and rhythm, normal S1 and S2 without murmur, rub or gallop. ABDOMEN: Soft, nontender, not distended, normoactive bowel sounds, no guarding, no rebound, no masses. UPPER EXTREMITIES: No peripheral edema. LOWER EXTREMITIES: 2+ pulses, warm, 1+ peripheral edema. PSYCHIATRIC: Cooperative. Good eye contact. SKIN: Warm, dry, normal turgor, hyperpigmentation on lower extremities with m ultiple open wounds, no tenderness to palpation, no drainage. Laboratory Results - last 24 hr 08/27/18 08/27/18 08/27/18 08:40 08:40 10:50 WBC 7.7 RBC 4.58 Hgb 12.4 Hct 36.8 MCV 80.3 MCH 27.0 MCHC 33.6 RDW 16.5 H Plt Count 274 MPV 9.0 Absolute Neuts (auto) 5.8 Neutrophils % 74.7 Lymphocytes % 15.0 Monocytes % 7.6 Eosinophils % 1.7 Basophils % 1.0 Nucleated RBC % 0 Sodium 139 Potassium 3.8 Chloride 101 Carbon Dioxide 29 Anion Gap 9 BUN 24 H Creatinine 1.2 Creat Clearance w eGFR > 60 Random Glucose 277 H Calcium 8.4 L Total Bilirubin 4.3 H AST 30 ALT 52 Alkaline Phosphatase 133 H Troponin I 0.44 H Total Protein 6.8 Albumin 3.2 L Urine Color Alexia Urine Appearance Clear Urine pH 6.0 Ur Specific [place] 1.026 Urine Protein 3+ H Urine Glucose (UA) 3+ H Urine Ketones Negative Urine Blood 1+ H Urine Nitrite Negative Urine Bilirubin 2.0 Urine Urobilinogen 4.0 e.u/dl Ur Leukocyte Esterase Negative Urine WBC (Auto) 3 Urine RBC (Auto) 25 Ur Epithelial Cells Rare Active Medications Generic Name Dose Route Start Last Admin Trade Name Freq PRN Reason Stop Dose Admin Atorvastatin Calcium 20 mg 08/27/18 22:00 Lipitor - PO HS [place] Digoxin 0.125 mg 08/28/18 10:00 Lanoxin - PO DAILY [facility] Gabapentin 300 mg 08/28/18 08:00 Neurontin - PO DAILY@0800 [facility] Ceftriaxone Sodium 1 gm/ 50 mls @ 200 mls/hr 08/28/18 10:00 Dextrose IVPB DAILY [facility] Protocol Insulin Aspart 1 vial 08/27/18 16:30 Novolog Vial Sliding Scale - SQ ACHS [facility] Protocol Insulin Detemir 30 units 08/27/18 22:00 Levemir Vial SQ HS [facility] Ipratropium [place] 1 amp 08/27/18 13:05 08/27/18 14:42 Atrovent 0.02% Nebulizer - NEB 09/03/18 13:05 1 amp Q6H PRN Administration DYSPEPSIA Isosorbide Mononitrate 60 mg 08/28/18 10:00 Imdur - PO DAILY [facility] Methylprednisolone Sodium Succinate 40 mg 08/27/18 18:00 Solu-Medrol - IVPUSH Q8H-IV [facility] Metoprolol Succinate 100 mg 08/28/18 10:00 Toprol Xl - PO DAILY [facility] Sacubitril/Valsartan 1 tab 08/27/18 22:00 Entresto 49 Mg-51 Mg Tablet PO BID [facility] Tamsulosin HCl 0.4 mg 08/28/18 08:30 Flomax - PO DAILY@0830 [facility] ASSESSMENT/PLAN: The patient is a 63 year old man with a significant PMH of CAD s/p 1 stent, diastolic CHFHTN, A/Fib. s/p ablation x 2 admitted to the hospital for URI with hemoptysis for 3 days and was found to have elevated troponin. Elevated troponin diastolic CHF A.Fib/A.flutter hemoptysis COPD DM II HLD h/o of MRSA cellulitis urinary retention Plan: Elevated troponin: Most likely caused by demand ischemia considering that the patient has URI for the past 3 weeks. Less likely NSTEMI but needs to be followed by serial troponins, EKGs. -f/u ECHo results -EKG with NSR, normal axis, non specific t wave inversions in aVL, II, V1, V2, V3, V5, V6, -continue Xarelto 20 mg, Metoprolol 100 mg daily, Entresto 49/51 daily. -continue treatment for possible URI/PNA/COPD Diastiolic CHF: -it doesn't look that the patient is in acute exacerbation of his HF -continue current home medications A.Fib/A.Flutter: -continue home medications: Xarelto daily -Metoprolol 100 mg qd Hemoptysis: -f/u CT chest -cont current medications Discussed with Dr Angeles Jackson PGY 3 Dispo: We will continue to follow the patient. Thank you for this consultative opportunity. <ManuelSimran - Last Filed: 08/27/18 15:32> Consultation: REQUESTING PROVIDER: CONSULT REQUEST: We have been asked to medically evaluate this patient for ( specify). HISTORY OF PRESENT ILLNESS: 63 year old man with a PMHx of recent ablation for A.Fib 07/05/18 at [facility], HTN, diastolic CHF with borderline reduced LVEF from echocardiogram on 10/2017, CAD s/ p LAD PCI/stent in 2014, NSTEMI s/p cardiac cath at [facility] 04/2017 which revealed patent LAD stent, severe ramus intermedius (small caliber), non- obstructive LCx paroxysmal atrial fibrillation, s/p atrial fibrillation in 10/04 at [facility], atrial flutter in October 2017. The patient is admitted to the hospital for URI with hemoptysis and was found to have elevated troponin.Has been complaining of cough that has been present for the past 3 weeks. He is bringing up yellowish phlegm and for the past 3 days noticed small amounts of blood also coming from his nose. He also reports feeling "hot" but denies having fever, chills. He denies chest pain, palpitation , syncope. He is compliant with his home medications. REVIEW OF SYSTEMS: CONSTITUTIONAL: Absent: fever, chills, diaphoresis, generalized weakness, malaise, loss of appetite, weight change HEENT: Absent: rhinorrhea, nasal congestion, throat pain, throat swelling, difficulty swallowing, mouth swelling, ear pain, eye pain, visual changes CARDIOVASCULAR: Absent: chest pain, syncope, palpitations, irregular heart rate, lightheadedness , peripheral edema RESPIRATORY: Absent: cough, shortness of breath, dyspnea with exertion, orthopnea, wheezing, stridor, hemoptysis GASTROINTESTINAL: Absent: abdominal pain, abdominal distension, nausea, vomiting, diarrhea, constipation, melena, hematochezia GENITOURINARY: Absent: dysuria, frequency, urgency, hesitancy, hematuria, flank pain, genital pain MUSCULOSKELETAL: Absent: myalgia, arthralgia, joint swelling, back pain, neck pain SKIN: Absent: rash, itching, pallor HEMATOLOGIC/IMMUNOLOGIC: Absent: easy bleeding, easy bruising, lymphadenopathy, frequent infections ENDOCRINE: Absent: unexplained weight gain, unexplained weight loss, heat intolerance, cold intolerance NEUROLOGIC: Absent: headache, focal weakness or paresthesias, dizziness, unsteady gait, seizure, mental status changes, bladder or bowel incontinence PSYCHIATRIC: Absent: anxiety, depression, suicidal or homicidal ideation, hallucinations. PHYSICAL EXAMINATION Vital Signs - 24 hr 08/27/18 08/27/18 08/27/18 07:35 08:53 11:59 Temperature 98.6 F 98.6 F Pulse Rate 77 Pulse Rate [ 68 Left Radial] Respiratory 20 18 Rate Blood Pressure 169/90 Blood Pressure 177/113 H [Right Arm] O2 Sat by Pulse 97 97 96 Oximetry (%) GENERAL: Awake, alert, and fully oriented, in no acute distress. HEAD: Normal with no signs of trauma. EYES: Pupils equal, round and reactive to light, extraocular movements intact, sclera anicteric, conjunctiva clear. No lid lag. EARS, NOSE, THROAT: Ears normal, nares patent, oropharynx clear without exudates. Moist mucous membranes. NECK: Normal range of motion, supple without lymphadenopathy, JVD, or masses. LUNGS: Breath sounds equal, clear to auscultation bilaterally. No wheezes, and no crackles. No accessory muscle use. HEART: Regular rate and rhythm, normal S1 and S2 without murmur, rub or gallop. ABDOMEN: Soft, nontender, not distended, normoactive bowel sounds, no guarding, no rebound, no masses. No hepatomegaly or splenomegaly. MUSCULOSKELETAL: Normal range of motion at all joints. No bony deformities or tenderness. No CVA tenderness. UPPER EXTREMITIES: 2+ pulses, warm, well-perfused. No cyanosis. No clubbing. Cap refill <2 seconds. No peripheral edema. LOWER EXTREMITIES: 2+ pulses, warm, well-perfused. No calf tenderness. Trace peripheral edema. NEUROLOGICAL: Cranial nerves II-XII intact. Normal speech. Normal gait. PSYCHIATRIC: Cooperative. Good eye contact. Appropriate mood and affect. SKIN: Warm, dry, normal turgor, no rashes or lesions noted. Laboratory Results - last 24 hr 08/27/18 08/27/18 08/27/18 08:40 08:40 10:50 WBC 7.7 RBC 4.58 Hgb 12.4 Hct 36.8 MCV 80.3 MCH 27.0 MCHC 33.6 RDW 16.5 H Plt Count 274 MPV 9.0 Absolute Neuts (auto) 5.8 Neutrophils % 74.7 Lymphocytes % 15.0 Monocytes % 7.6 Eosinophils % 1.7 Basophils % 1.0 Nucleated RBC % 0 Sodium 139 Potassium 3.8 Chloride 101 Carbon Dioxide 29 Anion Gap 9 BUN 24 H Creatinine 1.2 Creat Clearance w eGFR > 60 Random Glucose 277 H Calcium 8.4 L Total Bilirubin 4.3 H AST 30 ALT 52 Alkaline Phosphatase 133 H Creatine Kinase Creatine Kinase Index CK-MB (CK-2) Troponin I 0.44 H Total Protein 6.8 Albumin 3.2 L Urine Color Alexia Urine Appearance Clear Urine pH 6.0 Ur Specific [place] 1.026 Urine Protein 3+ H Urine Glucose (UA) 3+ H Urine Ketones Negative Urine Blood 1+ H Urine Nitrite Negative Urine Bilirubin 2.0 Urine Urobilinogen 4.0 e.u/dl Ur Leukocyte Esterase Negative Urine WBC (Auto) 3 Urine RBC (Auto) 25 Ur Epithelial Cells Rare 08/27/18 14:10 WBC RBC Hgb Hct MCV MCH MCHC RDW Plt Count MPV Absolute Neuts (auto) Neutrophils % Lymphocytes % Monocytes % Eosinophils % Basophils % Nucleated RBC % Sodium Potassium Chloride Carbon Dioxide Anion Gap BUN Creatinine Creat Clearance w eGFR Random Glucose Calcium Total Bilirubin AST ALT Alkaline Phosphatase Creatine Kinase 271 Creatine Kinase Index 2.2 CK-MB (CK-2) 6.1 H Troponin I 0.42 H Total Protein Albumin Urine Color Urine Appearance Urine pH Ur Specific [place] Urine Protein Urine Glucose (UA) Urine Ketones Urine Blood Urine Nitrite Urine Bilirubin Urine Urobilinogen Ur Leukocyte Esterase Urine WBC (Auto) Urine RBC (Auto) Ur Epithelial Cells Active Medications Generic Name Dose Route Start Last Admin Trade Name Freq PRN Reason Stop Dose Admin Atorvastatin Calcium 20 mg 08/27/18 22:00 Lipitor - PO HS [place] Digoxin 0.125 mg 08/28/18 10:00 Lanoxin - PO DAILY [facility] Gabapentin 300 mg 08/28/18 08:00 Neurontin - PO DAILY@0800 [facility] Ceftriaxone Sodium 1 gm/ 50 mls @ 200 mls/hr 08/28/18 10:00 Dextrose IVPB DAILY [facility] Protocol Insulin Aspart 1 vial 08/27/18 16:30 Novolog Vial Sliding Scale - SQ ACHS [facility] Protocol Insulin Detemir 30 units 08/27/18 22:00 Levemir Vial SQ HS [facility] Ipratropium [place] 1 amp 08/27/18 13:05 08/27/18 14:42 Atrovent 0.02% Nebulizer - NEB 09/03/18 13:05 1 amp Q6H PRN Administration DYSPEPSIA Isosorbide Mononitrate 60 mg 08/28/18 10:00 Imdur - PO DAILY [facility] Methylprednisolone Sodium Succinate 40 mg 08/27/18 18:00 Solu-Medrol - IVPUSH Q8H-IV [place] Metoprolol Succinate 100 mg 08/28/18 10:00 Toprol Xl - PO DAILY [facility] Sacubitril/Valsartan 1 tab 08/27/18 22:00 Entresto 49 Mg-51 Mg Tablet PO BID [facility] Tamsulosin HCl 0.4 mg 08/28/18 08:30 Flomax - PO DAILY@0830 [facility] ASSESSMENT/PLAN: I reviewed the history exam and plan with the resident and examined the patient independnetly. I agree with the plan as reported. My independent findings are as follows. 63 yo M with stable CAD and unrevascularized disease involving the ramus branch , Afib post ablation and ho heart failure was admitted with persistent cough and mild TP elevation. Echocardiogram showed normal LV function Likely demand mediated ischemia. Continue to trend cardiac enzyme and repeat ECG. Add ASA, cont beta serena and statin therapy. Would resume Xarelto. Dispo: We will continue to follow the patient. Thank you for this consultative opportunity. <Luther Reynoso - Last Filed: 08/27/18 16:33> Problem List - Problems (1) Elevated troponin Code(s): R74.8 - ABNORMAL LEVELS OF OTHER SERUM ENZYMES (2) NSTEMI (non-ST elevated myocardial infarction) Code(s): I21.4 - NON-ST ELEVATION (NSTEMI) MYOCARDIAL INFARCTION (3) Acute exacerbation of chronic obstructive pulmonary disease (COPD) Code(s): J44.1 - CHRONIC OBSTRUCTIVE PULMONARY DISEASE W (ACUTE) EXACERBATION (4) Atrial fibrillation Code(s): I48.91 - UNSPECIFIED ATRIAL FIBRILLATION (5) CHF (congestive heart failure) Code(s): I50.9 - HEART FAILURE, UNSPECIFIED (6) COPD (chronic obstructive pulmonary disease) Code(s): J44.9 - CHRONIC OBSTRUCTIVE PULMONARY DISEASE, UNSPECIFIED <Simran Jackson - Last Filed: 08/27/18 15:32> Visit type - Emergency Visit Emergency Visit: Yes ED Registration Date: 08/27/18 Care time: The patient presented to the Emergency Department on the above date and was hospitalized for further evaluation of their emergent condition. - New Patient This patient is new to me today: Yes Date on this admission: 08/27/18 - Critical Care Critical Care patient: No <Simran Jackson - Last Filed: 08/27/18 15:32>
--- NOTE | 2018-08-27 15:33 | PN ---
Progress Note (short form) - Note Progress Note: PULMONARY CONSULTATION DICTATED 08/27/18 IMP COPD EXACERBATION URI DIASTOLIC CHF + TROPONINS AFIB HEMOPTYSIS PULMONARY HTN HTN PLAN ABX O2 INHALED BRONCHODILATORS MEDROL TREND TROPONIN QUANTIFY HEMOPTYSIS BNP TITRATE BP MEDS DR GOMEZ Problem List - Problems (1) Elevated troponin Code(s): R74.8 - ABNORMAL LEVELS OF OTHER SERUM ENZYMES (2) Hemoptysis Code(s): R04.2 - HEMOPTYSIS (3) Acute exacerbation of chronic obstructive pulmonary disease (COPD) Code(s): J44.1 - CHRONIC OBSTRUCTIVE PULMONARY DISEASE W (ACUTE) EXACERBATION (4) Atrial fibrillation Code(s): I48.91 - UNSPECIFIED ATRIAL FIBRILLATION (5) CAD S/P percutaneous coronary angioplasty Code(s): I25.10 - ATHSCL HEART DISEASE OF [place] CORONARY ARTERY W/O ANG PCTRS; Z98.61 - CORONARY ANGIOPLASTY STATUS (6) CHF (congestive heart failure) Code(s): I50.9 - HEART FAILURE, UNSPECIFIED (7) Diabetes mellitus Code(s): E11.9 - TYPE 2 DIABETES MELLITUS WITHOUT COMPLICATIONS Qualifiers: Diabetes mellitus type: type 2 (8) Dyspnea Code(s): R06.00 - DYSPNEA, UNSPECIFIED (9) H/O heart artery stent Code(s): Z95.5 - PRESENCE OF CORONARY ANGIOPLASTY IMPLANT AND GRAFT
--- NOTE | 2018-08-27 15:56 | EKG ---
Test Reason : Blood Pressure : / mmHG Vent. Rate : 075 BPM Atrial Rate : 075 BPM P-R Int : 212 ms QRS Dur : 086 ms QT Int : 390 ms P-R-T Axes : 000 033 192 degrees QTc Int : 435 ms SINUS RHYTHM WITH 1ST DEGREE A-V BLOCK POSSIBLE INFERIOR INFARCT , AGE UNDETERMINED ABNORMAL ECG WHEN COMPARED WITH ECG OF 02-MAY-2018 20:38, SIGNIFICANT CHANGES HAVE OCCURRED Confirmed by Luther Reynoso ([id number]) on 08/27/2018 3:55:57 PM Referred By: Confirmed By:Luther Reynoso
[2018-08-27] MEDS ORDERED: INSULIN (NOVOLOG) ASPART 100 UNITS/ML 10ML VIAL ONE (16:05)
[2018-08-27] MEDS ORDERED: INSULIN (NOVOLOG MIX 70/30) 100 UNITS/ML MDV SQ SCH (16:30)
[2018-08-27] MEDS: INSULIN SLIDING SCALE (NOVOLOG) 1 VIAL SQ SCH ×2 (16:37→22:09)
[2018-08-27] MEDS: methylPREDNISolone NA SUCC 40 MG/1 ML VIAL IVPUSH SCH (17:32)
[2018-08-27 18:12] VITALS: BMI 26.6
--- NOTE | 2018-08-27 21:00 | CONS ---
DATE OF CONSULTATION: 08/27/2018 REFERRING PHYSICIAN: Britany Weaver MD The patient is a 63-year-old male known to me from previous hospitalization as well as office followup, with past medical history of chronic obstructive pulmonary disease, atrial fibrillation, status post ablation, congestive heart failure, ASHD, status post stent, hypertension, hyperlipidemia, status post CA, diabetes, admitted to [facility] with a complaint of 3-week history of increasing shortness of breath, cough productive of yellow sputum, past 3 days of hemoptysis, and chest congestion and wheezing. The patient states he initially did not take any medication for the above symptoms. Approximately 3 days ago, he started coughing blood-tinged sputum. He states that he had chills but no fever, no night sweats. No chest pain, nausea, vomiting or diaphoresis. He has been taking his home nebs with often minimal improvement. His symptoms and persisted with hemoptysis, at which time he presented to the emergency room. In the ER, he underwent a CT scan of the chest, which revealed small bilateral pleural effusions, bibasilar atelectatic changes, small pericardial effusion. He has a history of tobacco use, quit approximately a year and a half ago. There is no history of occupational exposure to chemicals or fumes. Past medical history, again, includes atrial fibrillation, ASHD, congestive heart failure, hypertension, hyperlipidemia, history of CA, diabetes. PAST SURGICAL HISTORY: Cholecystectomy and hernia repair and a cardiac stent. Medications prior to admission include insulin, aspirin, Amaryl, simvastatin, Lasix, gabapentin, Toprol, Xarelto, Flomax, Atrovent, Imdur, Lanoxin, K-Dur, Ultram, NovoLog, and Entresto. SOCIAL HISTORY: Tobacco use, quit a year and a half ago. No occupational exposures. REVIEW OF SYSTEMS: Positive hemoptysis, chest congestion. No cough. Positive hemoptysis. No fever. Positive chills. No chest pain, no palpitation, no abdominal pain. PHYSICAL EXAMINATION: General: The patient is a well-developed, well-nourished male, awake, alert, currently in no acute distress. Vital Signs: He is currently afebrile. Blood pressure is 134/76. Respiratory rate 17. O2 saturation is 98% on room air. HEENT: Normocephalic, atraumatic. Neck: Supple. Heart: Irregularly irregular, S1, S2. Chest: Few bibasilar crackles. Abdomen: Soft. Bowel sounds positive. Extremities: No cyanosis, edema. LABORATORY DATA: WBC 7.7, hemoglobin 12.4, hematocrit 36.8, with a platelet count 274,000. BUN is 24, creatinine 1.2, bilirubin is 4.3. CK is 271, troponin is about a 0.44. Chest CT as noted earlier. Echocardiogram reveals normal LV function, RV systolic function mildly reduced, right atrial dilatation, mild pulmonary hypertension, small pericardial effusion. IMPRESSION: Cough and chest congestion, dyspnea, most likely secondary to: 1. Mild chronic obstructive pulmonary disease exacerbation. 2. Upper respiratory infection, likely bronchitis. 3. Atrial fibrillation. 4. Positive troponin, rule out myocardial infarction. 5. History of congestive heart failure. 6. Hyperlipidemia. 7. Hypertension. PLAN: Continue antibiotic therapy, sputum for C&S, obtain cultures, quantify hemoptysis, trend troponins, check BNP. Short course of Medrol. Supplemental O2. Monitor BP. Hypertensive medications as per Cardiology and PMD. KISHAN GOMEZ M.D. [id number]
[2018-08-27] MEDS ORDERED: PT OWN MED DRAWER 7, Y5N ONE (21:12)
[2018-08-27] MEDS: INSULIN (LEVEMIR) 100 UNITS/ML UNITS SQ SCH (22:07)
[2018-08-27] MEDS: ATORVASTATIN CA 20 MG TABLET (FP) PO SCH (22:09)
[2018-08-27] MEDS: SACUBITRIL/VALSARTAN 49 MG-51 MG TABLET PO SCH (23:24)
[2018-08-27] MEDS: traMADol HCL 50 MG TABLET PO PRN (23:24)
[2018-08-28] MEDS: methylPREDNISolone NA SUCC 40 MG/1 ML VIAL IVPUSH SCH ×3 (04:01→17:15)
[2018-08-28] MEDS: INSULIN SLIDING SCALE (NOVOLOG) 1 VIAL SQ SCH ×4 (06:07→22:19)
[2018-08-28 06:28] LABS: BASO % 0.2 % (0-2.0); HEMOGLOBIN 10.8 GM/dL (11.7-16.9); LYMPH % 10.4 % (8-40); MCH 25.9 pg (25.7-33.7); MCHC 32.6 g/dl (32.0-35.9); MEAN CELL VOLUME 79.4 fl (80-96); MEAN PLT VOLUME 9.2 fl (7.5-11.1); MONO % 4.4 % (3.8-10.2); PLATELET COUNT 240 K/MM3 (134-434); RBC 4.15 M/mm3 (4.00-5.60); RDW 15.9 % (11.9-15.9); WHITE BLOOD COUNT 10.4 K/mm3 (4.0-10.0)
[2018-08-28 07:10] LABS: ALBUMIN 2.4 g/dl (3.4-5.0); ALK PHOS 106 U/L (45-117); ANION GAP 9 MMOL/L (8-16); BILIRUBIN,TOTAL 3.5 mg/dL (0.2-1); BLOOD UREA NITROGEN 30 mg/dL (7-18); CALCIUM 8.1 mg/dL (8.5-10.1); CHLORIDE 104 mmol/L (98-107); CHOLESTEROL 104 mg/dL (50-200); CO2 27 mmol/L (21-32); CREATININE 1.2 mg/dL (0.55-1.3); GLUCOSE,RANDOM 288 mg/dL (74-106); HDL CHOLESTEROL 38 mg/dL (40-60); MAGNESIUM 1.8 mg/dL (1.8-2.4); PHOSPHOROUS 3.3 mg/dL (2.5-4.9); POTASSIUM 3.6 mmol/L (3.5-5.1); SGOT/AST 19 U/L (15-37); SGPT/ALT 36 U/L (13-61); SODIUM 139 mmol/L (136-145); TOT PROT 5.5 g/dl (6.4-8.2); TRIGLYCERIDES 67 mg/dL (0-150)
[2018-08-28] MEDS: GABAPENTIN 300 MG CAPSULE (FP) PO SCH (08:02)
[2018-08-28] MEDS: TAMSULOSIN HCL 0.4 MG CAP PO SCH (08:02)
--- NOTE | 2018-08-28 08:52 | PN ---
Progress Note, Physician - Current Medication List Current Medications: Active Medications Atorvastatin Calcium (Lipitor -) 20 mg PO HS [facility] Last Admin: 08/27/18 22:09 Dose: 20 mg Digoxin (Lanoxin -) 0.125 mg PO DAILY [facility] Gabapentin (Neurontin -) 300 mg PO DAILY@0800 [facility] Last Admin: 08/28/18 08:02 Dose: 300 mg Ceftriaxone Sodium 1 gm/ (Dextrose) 50 mls @ 200 mls/hr IVPB DAILY [facility]; Protocol Insulin Aspart (Novolog Vial Sliding Scale -) 1 vial SQ ACHS [facility]; Protocol Last Admin: 08/28/18 06:07 Dose: 4 units Insulin Detemir (Levemir Vial) 30 units SQ [facility] Last Admin: 08/27/18 22:07 Dose: 30 unit Ipratropium [place] (Atrovent 0.02% Nebulizer -) 1 amp NEB Q6H PRN PRN Reason: DYSPEPSIA Stop: 09/03/18 13:05 Last Admin: 08/27/18 21:18 Dose: 1 amp Isosorbide Mononitrate (Imdur -) 60 mg PO DAILY [facility] Methylprednisolone Sodium Succinate (Solu-Medrol -) 40 mg IVPUSH Q8H-IV [facility] Last Admin: 08/28/18 04:01 Dose: 40 mg Metoprolol Succinate (Toprol Xl -) 100 mg PO DAILY [facility] Sacubitril/Valsartan (Entresto 49 Mg-51 Mg Tablet) 1 tab PO BID [facility] Last Admin: 08/27/18 23:24 Dose: 1 tab Tamsulosin HCl (Flomax -) 0.4 mg PO DAILY@0830 [facility] Last Admin: 08/28/18 08:02 Dose: 0.4 mg Tramadol HCl (Ultram -) 50 mg PO Q8H PRN PRN Reason: PAIN LEVEL 7 - 10 Last Admin: 08/27/18 23:24 Dose: 50 mg - Objective Vital Signs: Vital Signs Temperature 98.2 F 08/28/18 06:00 Pulse Rate 89 08/28/18 06:00 Respiratory Rate 18 08/28/18 06:00 Blood Pressure 164/86 08/28/18 06:00 O2 Sat by Pulse Oximetry (%) 97 08/27/18 21:00 Cardiovascular: Yes: S1, S2 Respiratory: Yes: Diminished, On Nasal O2, Rhonchi Gastrointestinal: Yes: Normal Bowel Sounds, Soft Integumentary: Yes: Venous Stasis Changes Wound/Incision: Yes: Dressing Removed, Draining (on dressing) Labs: CBC, BMP 08/28/18 05:30 08/28/18 05:30 Assessment/Plan - Problems (1) Elevated troponin Assessment/Plan: trend troponin Troponin, BNP 08/27/18 08/27/18 08/28/18 14:10 20:15 05:30 Troponin I 0.42 H 0.38 H B-Natriuretic Peptide 7382.5 H maybe demand due to copd telemetry echo cardiology eval got aspirin in ER Code(s): R74.8 - ABNORMAL LEVELS OF OTHER SERUM ENZYMES (2) Hemoptysis Assessment/Plan: pt on AC for afib possible pna on rocephin id consult ct scan chest no infiltrate Code(s): R04.2 - HEMOPTYSIS (3) Acute exacerbation of chronic obstructive pulmonary disease (COPD) Assessment/Plan: nebulizer iv steroids oxygen as needed pulm consult ct lung without contrast to look at lung nodule Code(s): J44.1 - CHRONIC OBSTRUCTIVE PULMONARY DISEASE W (ACUTE) EXACERBATION (4) Atrial fibrillation Assessment/Plan: digoxin,toprol s/p ablation xarelto- will hold given hemoptysis till seen by cardiology Code(s): I48.91 - UNSPECIFIED ATRIAL FIBRILLATION (5) Diabetes mellitus Assessment/Plan: insulin hgba1c,bgm sliding scale endo Code(s): E11.9 - TYPE 2 DIABETES MELLITUS WITHOUT COMPLICATIONS Qualifiers: Diabetes mellitus type: type 2
[2018-08-28] MEDS ORDERED: DEXTROSE 5%-WATER - 50 ML IVPB ONE (09:45)
[2018-08-28] MEDS ORDERED: cefTRIAXone SODIUM 1 GM VIAL ONE (09:45)
[2018-08-28] MEDS ORDERED: PT OWN MED DRAWER 7, Y5N ONE (09:45)
[2018-08-28] MEDS: DIGOXIN 0.125 MG TABLET (FP) PO SCH (09:49)
[2018-08-28] MEDS: ISOSORBIDE MONONITRATE 60 MG TAB.SR.24H (FP) PO SCH (09:49)
[2018-08-28] MEDS: SACUBITRIL/VALSARTAN 49 MG-51 MG TABLET PO SCH ×2 (09:50→22:17)
[2018-08-28] MEDS: CEFTRIAXONE 1 GM in DEXTROSE 5%-WATER - 50 ML IVPB SCH (09:50)
--- NOTE | 2018-08-28 11:24 | PN ---
Progress Note, Physician History of Present Illness: pulmonary alert,feeling better,trace hemoptysis(dark heme),-cp. BNP 7382 - Current Medication List Current Medications: Active Medications Atorvastatin Calcium (Lipitor -) 20 mg PO HS [facility] Last Admin: 08/27/18 22:09 Dose: 20 mg Digoxin (Lanoxin -) 0.125 mg PO DAILY [facility] Last Admin: 08/28/18 09:49 Dose: 0.125 mg Gabapentin (Neurontin -) 300 mg PO DAILY@0800 [facility] Last Admin: 08/28/18 08:02 Dose: 300 mg Ceftriaxone Sodium 1 gm/ (Dextrose) 50 mls @ 200 mls/hr IVPB DAILY [facility]; Protocol Last Admin: 08/28/18 09:50 Dose: 200 mls/hr Insulin Aspart (Novolog Vial Sliding Scale -) 1 vial SQ ACHS [facility]; Protocol Last Admin: 08/28/18 06:07 Dose: 4 units Insulin Detemir (Levemir Vial) 30 units SQ HS [facility] Last Admin: 08/27/18 22:07 Dose: 30 unit Ipratropium [place] (Atrovent 0.02% Nebulizer -) 1 amp NEB Q6H PRN PRN Reason: DYSPEPSIA Stop: 09/03/18 13:05 Last Admin: 08/27/18 21:18 Dose: 1 amp Isosorbide Mononitrate (Imdur -) 60 mg PO DAILY [facility] Last Admin: 08/28/18 09:49 Dose: 60 mg Methylprednisolone Sodium Succinate (Solu-Medrol -) 40 mg IVPUSH Q8H-IV [facility] Last Admin: 08/28/18 10:39 Dose: 40 mg Metoprolol Succinate (Toprol Xl -) 100 mg PO DAILY [facility] Last Admin: 08/28/18 09:49 Dose: 100 mg Sacubitril/Valsartan (Entresto 49 Mg-51 Mg Tablet) 1 tab PO BID [facility] Last Admin: 08/28/18 09:50 Dose: 1 tab Tamsulosin HCl (Flomax -) 0.4 mg PO DAILY@0830 [facility] Last Admin: 08/28/18 08:02 Dose: 0.4 mg Tramadol HCl (Ultram -) 50 mg PO Q8H PRN PRN Reason: PAIN LEVEL 7 - 10 Last Admin: 08/27/18 23:24 Dose: 50 mg - Objective Vital Signs: Vital Signs Temperature 98.4 F 08/28/18 08:55 Pulse Rate 73 08/28/18 09:49 Respiratory Rate 20 08/28/18 08:55 Blood Pressure 177/95 H 08/28/18 08:55 O2 Sat by Pulse Oximetry (%) 96 08/28/18 08:52 Constitutional: Yes: Well Nourished, Calm Eyes: Yes: WNL HENT: Yes: WNL Neck: Yes: WNL Cardiovascular: Yes: Regular Rate and Rhythm, S1, S2 Respiratory: Yes: Rales (few basilar crackles) Gastrointestinal: Yes: Normal Bowel Sounds, Soft Extremities: Yes: WNL Edema: No Labs: CBC, BMP 08/28/18 05:30 08/28/18 05:30 Laboratory Tests 08/27/18 20:15 B-Natriuretic Peptide 7382.5 H Problem List - Problems (1) Elevated troponin Code(s): R74.8 - ABNORMAL LEVELS OF OTHER SERUM ENZYMES (2) Hemoptysis Code(s): R04.2 - HEMOPTYSIS (3) Acute exacerbation of chronic obstructive pulmonary disease (COPD) Code(s): J44.1 - CHRONIC OBSTRUCTIVE PULMONARY DISEASE W (ACUTE) EXACERBATION (4) Atrial fibrillation Code(s): I48.91 - UNSPECIFIED ATRIAL FIBRILLATION (5) CAD S/P percutaneous coronary angioplasty Code(s): I25.10 - ATHSCL HEART DISEASE OF [place] CORONARY ARTERY W/O ANG PCTRS; Z98.61 - CORONARY ANGIOPLASTY STATUS (6) CHF (congestive heart failure) Code(s): I50.9 - HEART FAILURE, UNSPECIFIED (7) Diabetes mellitus Code(s): E11.9 - TYPE 2 DIABETES MELLITUS WITHOUT COMPLICATIONS Qualifiers: Diabetes mellitus type: type 2 (8) Dyspnea Code(s): R06.00 - DYSPNEA, UNSPECIFIED (9) H/O heart artery stent Code(s): Z95.5 - PRESENCE OF CORONARY ANGIOPLASTY IMPLANT AND GRAFT Assessment/Plan IMP COPD EXACERBATION URI DIASTOLIC CHF + TROPONINS AFIB HEMOPTYSIS PULMONARY HTN HTN PLAN ABX O2 INHALED BRONCHODILATORS MEDROL TAPER TREND TROPONIN QUANTIFY HEMOPTYSIS TITRATE BP MEDS ECHO DR GOMEZ Problem List - Problems (1) Elevated troponin Code(s): R74.8 - ABNORMAL LEVELS OF OTHER SERUM ENZYMES (2) Hemoptysis Code(s): R04.2 - HEMOPTYSIS (3) Acute exacerbation of chronic obstructive pulmonary disease (COPD) Code(s): J44.1 - CHRONIC OBSTRUCTIVE PULMONARY DISEASE W (ACUTE) EXACERBATION (4) Atrial fibrillation Code(s): I48.91 - UNSPECIFIED ATRIAL FIBRILLATION (5) CAD S/P percutaneous coronary angioplasty Code(s): I25.10 - ATHSCL HEART DISEASE OF [place] CORONARY ARTERY W/O ANG PCTRS; Z98.61 - CORONARY ANGIOPLASTY STATUS (6) CHF (congestive heart failure) Code(s): I50.9 - HEART FAILURE, UNSPECIFIED (7) Diabetes mellitus Code(s): E11.9 - TYPE 2 DIABETES MELLITUS WITHOUT COMPLICATIONS Qualifiers: Diabetes mellitus type: type 2 (8) Dyspnea Code(s): R06.00 - DYSPNEA, UNSPECIFIED (9) H/O heart artery stent Code(s): Z95.5 - PRESENCE OF CORONARY ANGIOPLASTY IMPLANT AND GRAFT
--- NOTE | 2018-08-28 11:40 | CONSULT ---
- Consultation REQUESTING PROVIDER: CONSULT REQUEST: We have been asked to surgically evaluate this patient for ( LLE ulcer). PCP:Aisha Amaya HISTORY OF PRESENT ILLNESS: 63 y/o M w/ male with PMHx COPD not on home O2, CAD s/p stent, diastolic CHF, Afib (s/p ablation), DM, HTN, HLD, BPH now admitted with hemoptysis x3days. Vascular consulted for evaluation of LLE ulcer. Pt reports ulcer initially started as a blister due to severe edema of his le's in the middle of April. Pt was admitted to [facility] at that time and was seen by Vascular, Dr Herman who recommended trtmt for pts edema and local wound care for the ulcer. Pt reports ulcer has decreased significantly in size and has nearly healed. Pt has been cleaning the ulcer daily with NS and using Aquacel and 4x4's for dressings. Denies fevers, chills at home. Reports using compression socks 20-30mmHg daily, elevating b.l le's at rest. Ambulates without assistance, quit smoking 1.5 years ago (prior smoker 3cigs-1/2 ppd since teens). PMHx: as above PSHx: denies Home Medications Medication Instructions Recorded Insulin Glargine,Hum.rec.anlog 30 unit SQ HS 07/09/17 [Basaglar Funmipen U-100] Aspirin [ASA -] 81 mg PO DAILY #0 tab 07/11/17 Glimepiride [Amaryl -] 4 mg PO DAILY@0700 #0 tab 07/11/17 Simvastatin [Zocor -] 20 mg PO DAILY #0 tab 07/11/17 Furosemide [Lasix] 40 mg PO BID 10/26/17 Gabapentin 300 mg PO DAILY 10/26/17 Metoprolol Succinate [Toprol XL -] 100 mg PO DAILY 10/26/17 Rivaroxaban [Xarelto -] 20 mg PO DAILY 10/26/17 Tamsulosin HCl [Flomax -] 0.4 mg PO DAILY 10/26/17 Ipratropium 0.02% Nebulizer 1 amp NEB RQID #120 amp 11/02/17 [Atrovent 0.02% Nebulizer -] Isosorbide Mononitrate [Imdur -] 60 mg PO DAILY #30 tab.sr.24h 11/02/17 Digoxin [Lanoxin -] 0.125 mg PO DAILY #30 tablet MDD 1 05/09/18 Potassium Chloride [K-Dur -] 20 meq PO DAILY #20 tablet.er MDD 1 05/09/18 traMADol HCL [Ultram -] 50 mg PO Q6H PRN #10 tablet MDD 4 05/09/18 Insulin NPH Hum/Reg Insulin Hm 10 unit SQ BID 08/27/18 [Novolin 70-30 100 Unit/ml Vial] Sacubitril/Valsartan [Entresto 49 1 tab PO DAILY 08/27/18 mg-51 mg Tablet] Allergies Allergy/AdvReac Type Severity Reaction Status Date / Time No Known Allergies Allergy Verified 08/27/18 07:42 REVIEW OF SYSTEMS: CONSTITUTIONAL: Absent: fever, chills CARDIOVASCULAR: Absent: chest pain PHYSICAL EXAM: GENERAL: Awake, alert, and fully oriented, in no acute distress. HEAD: Normal with no signs of trauma. LOWER EXTREMITIES: LLE with 1-2+ pitting edema to mid calf. Approx 1x1cm ulcer on inner calf, clean based minimal serous drainage. Mild erythema of from L ankle to mid calf. No crepitus, no fluctuance. RLE with no ulcers. 1+ pitting edema to mid calf. No ulcers on b/l feet, + onychomycosis, prior Avulsed L 2nd toenail, well healed. Vasc: 2+ b/l fem/dp/pt Vital Signs Temperature 98.4 F 08/28/18 08:55 Pulse Rate 73 08/28/18 09:49 Respiratory Rate 20 08/28/18 08:55 Blood Pressure 177/95 H 08/28/18 08:55 O2 Sat by Pulse Oximetry (%) 96 08/28/18 08:52 Lab Results WBC 10.4 K/mm3 (4.0-10.0) H 08/28/18 05:30 RBC 4.15 M/mm3 (4.00-5.60) 08/28/18 05:30 Hgb 10.8 GM/dL (11.7-16.9) L 08/28/18 05:30 Hct 33.0 % (35.4-49) L 08/28/18 05:30 MCV 79.4 fl (80-96) L 08/28/18 05:30 MCHC 32.6 g/dl (32.0-35.9) 08/28/18 05:30 RDW 15.9 % (11.9-15.9) 08/28/18 05:30 Plt Count 240 K/MM3 (134-434) 08/28/18 05:30 Sodium 139 mmol/L (136-145) 08/28/18 05:30 Potassium 3.6 mmol/L (3.5-5.1) 08/28/18 05:30 Chloride 104 mmol/L (98-107) 08/28/18 05:30 Carbon Dioxide 27 mmol/L (21-32) 08/28/18 05:30 Anion Gap 9 MMOL/L (8-16) 08/28/18 05:30 BUN 30 mg/dL (7-18) H 08/28/18 05:30 Creatinine 1.2 mg/dL (0.55-1.3) 08/28/18 05:30 Random Glucose 288 mg/dL (74-106) H 08/28/18 05:30 Calcium 8.1 mg/dL (8.5-10.1) L 08/28/18 05:30 A/P: 63 y/o M w/ male with PMHx COPD not on home O2, CAD s/p stent, diastolic CHF, Afib (s/p ablation), DM, HTN, HLD, BPH now admitted with hemoptysis x3days. Vascular consulted for evaluation of LLE ulcer. Afebrile, VSS. Leukocytosis trending up from with L shift. LLE with clean based wound with no s/s of infection. Elevate the lower extremity above the level of the heart at all times while at rest Accuseal dressing to LLE cover with 4x4. Continue diuretics per medicine Care per primary team will d/w attending Dr Mendoza
--- NOTE | 2018-08-28 11:44 | CON.ID ---
Consult Consult Specialty:: infectious disease Referred by:: jazlyn Reason for Consultation:: hemoptysis - History of Present Illness Chief Complaint: cough and wheezing for 3 weeks History of Present Illness: 63 yo man history of afib, [facility] history of copd history of ulcer RLE this summer that Healed (polymicrobial including MRSA) 3 week history of cough productive of yellow sputum wheezing no fevers, no weight loss, no night sweats several days of blood tinged sputum he is on xeralto also recent epistaxis chest ct in ED no infiltrate, bilateral pleural effusions leg ulcer had healed and then another blister had appeared which is now a small ulcer chronic lower extremity edema - History Source History Provided By: Caregiver Limitations to Obtaining History: No Limitations - Past Medical History Cardio/Vascular: Yes: AFIB, CAD, CHF, HTN, Hyperlipdemia, PA Pulmonary: Yes: COPD, Other (pleural effusion). No: O2 Dependent Infectious Disease: Yes: MRSA. 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 History of Recent Travel: No Home Medications - Allergies Allergies/Adverse Reactions: Allergies Allergy/AdvReac Type Severity Reaction Status Date / Time No Known Allergies Allergy Verified 08/27/18 07:42 - Home Medications Home Medications: Ambulatory Orders Insulin Glargine,Hum.rec.anlog [Basaglar Kwikpen U-100] 30 unit SQ HS 07/09/17 Aspirin [ASA -] 81 mg PO DAILY #0 tab 07/11/17 Glimepiride [Amaryl -] 4 mg PO DAILY@0700 #0 tab 07/11/17 Simvastatin [Zocor -] 20 mg PO DAILY #0 tab 07/11/17 Furosemide [Lasix] 40 mg PO BID 10/26/17 Gabapentin 300 mg PO DAILY 10/26/17 Metoprolol Succinate [Toprol XL -] 100 mg PO DAILY 10/26/17 Rivaroxaban [Xarelto -] 20 mg PO DAILY 10/26/17 Tamsulosin HCl [Flomax -] 0.4 mg PO DAILY 10/26/17 Ipratropium 0.02% Nebulizer [Atrovent 0.02% Nebulizer -] 1 amp NEB RQID #120 amp 11/02/17 Isosorbide Mononitrate [Imdur -] 60 mg PO DAILY #30 tab.sr.24h 11/02/17 Digoxin [Lanoxin -] 0.125 mg PO DAILY #30 tablet MDD 1 05/09/18 Potassium Chloride [K-Dur -] 20 meq PO DAILY #20 tablet.er MDD 1 05/09/18 traMADol HCL [Ultram -] 50 mg PO Q6H PRN #10 tablet MDD 4 05/09/18 Insulin NPH Hum/Reg Insulin Hm [Novolin 70-30 100 Unit/ml Vial] 10 unit SQ BID 08/27/18 Sacubitril/Valsartan [Entresto 49 mg-51 mg Tablet] 1 tab PO DAILY 08/27/18 Family Disease History - Family Disease History Family Disease History: Other: Father (dialysis) Review of Systems - Review of Systems Constitutional: reports: No Symptoms Eyes: reports: No Symptoms HENT: reports: Epistaxis Neck: reports: No Symptoms Cardiovascular: reports: Edema. denies: Chest Pain Respiratory: reports: Cough, Hemoptysis, Wheezing Gastrointestinal: reports: No Symptoms Genitourinary: reports: No Symptoms Integumentary: reports: Wound Physical Exam Vital Signs: Vital Signs Temperature 98.4 F 08/28/18 08:55 Pulse Rate 73 08/28/18 09:49 Respiratory Rate 20 08/28/18 08:55 Blood Pressure 177/95 H 08/28/18 08:55 O2 Sat by Pulse Oximetry (%) 96 08/28/18 08:52 Constitutional: Yes: Well Nourished, No Distress, Calm Eyes: Yes: Conjunctiva Clear HENT: Yes: Atraumatic, Normocephalic Neck: Yes: Supple, Trachea Midline Cardiovascular: Yes: Regular Rate and Rhythm Respiratory: Yes: Regular, Diminished (at bases) Gastrointestinal: Yes: Normal Bowel Sounds, Soft Edema: Yes Edema: LLE: 1+, RLE: 1+ Integumentary: Yes: Other (1 by 1 cm ulcer LLE no erythema no purulence +serous drainage) Neurological: Yes: Alert, Oriented Labs: CBC, BMP 08/28/18 05:30 08/28/18 05:30 Imaging - Results X-ray: Report Reviewed, Image Reviewed Cat Scan: Report Reviewed, Image Reviewed Problem List - Problems (1) Acute exacerbation of chronic obstructive pulmonary disease (COPD) Code(s): J44.1 - CHRONIC OBSTRUCTIVE PULMONARY DISEASE W (ACUTE) EXACERBATION (2) Bronchitis Code(s): J40 - BRONCHITIS, NOT SPECIFIED ACUTE OR CHRONIC (3) Cough with hemoptysis Code(s): R04.2 - HEMOPTYSIS (4) NSTEMI (non-ST elevated myocardial infarction) Code(s): I21.4 - NON-ST ELEVATION (NSTEMI) MYOCARDIAL INFARCTION (5) Leg ulcer, left Code(s): L97.929 - NON-PRS CHRONIC ULC UNSP PRT OF L LOW LEG W UNSP SEVERITY Assessment/Plan given lack of infiltrate on cxray and lack of fever most c/w copd exacerbation with bronchitis suspect blood tinged sputum due to xeralto cardiology to see for elevated troponins would continue rocephin for bronchitis improved on steroids local wound care to leg ulcer
[2018-08-28] MEDS ORDERED: FUROSEMIDE 40 MG/4 ML INJECTABLE VIAL IVPUSH ONE (13:58)
--- NOTE | 2018-08-28 15:13 | PN ---
Progress Note, Physician History of Present Illness: seen and examined today in nad. very mild blood tinged sputum today. feeling better. no overnight events. no new complaints. no chest pain. - Current Medication List Current Medications: Active Medications Atorvastatin Calcium (Lipitor -) 20 mg PO HS [facility] Last Admin: 08/27/18 22:09 Dose: 20 mg Digoxin (Lanoxin -) 0.125 mg PO DAILY [facility] Last Admin: 08/28/18 09:49 Dose: 0.125 mg Furosemide (Lasix -) 40 mg PO DAILY [facility] Gabapentin (Neurontin -) 300 mg PO DAILY@0800 [facility] Last Admin: 08/28/18 08:02 Dose: 300 mg Ceftriaxone Sodium 1 gm/ (Dextrose) 50 mls @ 200 mls/hr IVPB DAILY [facility]; Protocol Last Admin: 08/28/18 09:50 Dose: 200 mls/hr Insulin Aspart (Novolog Vial Sliding Scale -) 1 vial SQ ACHS [facility]; Protocol Last Admin: 08/28/18 12:19 Dose: 4 units Insulin Detemir (Levemir Vial) 30 units SQ [facility] Last Admin: 08/27/18 22:07 Dose: 30 unit Ipratropium [place] (Atrovent 0.02% Nebulizer -) 1 amp NEB Q6H PRN PRN Reason: DYSPEPSIA Stop: 09/03/18 13:05 Last Admin: 08/27/18 21:18 Dose: 1 amp Isosorbide Mononitrate (Imdur -) 60 mg PO DAILY [facility] Last Admin: 08/28/18 09:49 Dose: 60 mg Methylprednisolone Sodium Succinate (Solu-Medrol -) 40 mg IVPUSH Q8H-IV [facility] Last Admin: 08/28/18 10:39 Dose: 40 mg Metoprolol Succinate (Toprol Xl -) 100 mg PO DAILY [facility] Last Admin: 08/28/18 09:49 Dose: 100 mg Rivaroxaban (Xarelto -) 20 mg PO DAILY@1800 [facility] Sacubitril/Valsartan (Entresto 49 Mg-51 Mg Tablet) 1 tab PO BID [facility] Last Admin: 08/28/18 09:50 Dose: 1 tab Tamsulosin HCl (Flomax -) 0.4 mg PO DAILY@0830 [facility] Last Admin: 08/28/18 08:02 Dose: 0.4 mg Tramadol HCl (Ultram -) 50 mg PO Q8H PRN PRN Reason: PAIN LEVEL 7 - 10 Last Admin: 08/27/18 23:24 Dose: 50 mg - Objective Vital Signs: Vital Signs Temperature 98.4 F 08/28/18 08:55 Pulse Rate 73 08/28/18 09:49 Respiratory Rate 20 08/28/18 08:55 Blood Pressure 177/95 H 08/28/18 08:55 O2 Sat by Pulse Oximetry (%) 96 08/28/18 08:52 Constitutional: Yes: No Distress, Calm Eyes: Yes: Conjunctiva Clear, EOM Intact, PERRL HENT: Yes: Atraumatic, Normocephalic Neck: Yes: Supple, Trachea Midline Cardiovascular: Yes: Regular Rate and Rhythm, S1, S2. No: Bradycardia, Tachycardia, Pulse Irregular, Bruit, JVD, Gallop, Murmur, Rub, S3, S4, Varicosities Respiratory: Yes: Regular, Diminished. No: Rales, Rhonchi, SOB, Wheezes Gastrointestinal: Yes: Normal Bowel Sounds, Soft. No: Distention, Tenderness Edema: Yes Edema: LLE: 1+, RLE: 1+ Peripheral Pulses WNL: Yes Peripheral Pulses: Left Doralis Pedis: 2+, Right Dorsalis Pedis: 2+ Neurological: Yes: Alert, Oriented Psychiatric: Yes: Alert, Oriented Labs: CBC, BMP 08/28/18 05:30 08/28/18 05:30 - ....Imaging Chest X-ray: Report Reviewed, Image Reviewed EKG: Report Reviewed, Image Reviewed Other: Report Reviewed, Image Reviewed Assessment/Plan 63 year old man with a PMHx of recent repeat ablation for A.Fib 07/05/18 at [facility], HTN, diastolic CHF with borderline reduced LVEF from echocardiogram on 10/2017, CAD s/p LAD PCI/stent in 2014, NSTEMI s/p cardiac cath at [facility] 04/2017 which revealed patent LAD stent, severe ramus intermedius (small caliber), non- obstructive LCx paroxysmal atrial fibrillation, s/p atrial fibrillation in 10/04 at [facility], atrial flutter in October 2017. Admitted to the hospital for URI with mild hemoptysis and was found to have a mildly elevated troponin with normal CK level States he was taken off Lasix 1-2 weeks ago and his Entresto dose was increased. states he has not been urinating as much as he was when he was on Lasix. Elevated troponin: known h/o CAD Most likely caused by demand ischemia considering that the patient has URI for the past 3 weeks. Less likely NSTEMI -troponin did not significantly trend up and CK levels are wnl -ECHO 08/27/18 showed normal LVEF, mild RV dysfunction, mild JUANA, small pericardial effusion -EKG with NSR, normal axis, non specific t wave inversions in aVL, II, V1, V2, V3, V5, V6, -recent cardiac cath showed patent LAD stent, otherwise non-obstructive and small vessel disease -cont Toprol and Lipitor -clarify if pt on ASA at home -no additional ischemic work up needed at this time. Afib/aflutter-with prior ablations for both and recent repeat AFib ablation a few months ago at [facility] -nsr now -continue Xarelto 20 mg, Metoprolol 100 mg daily -continue treatment for possible URI/PNA/COPD Diastiolic CHF:mild volume overload with pleural effusion, LE edema, small pericardial effusion -give 1 dose IV Lasix today then would restart Lasix 40mg po daily (previously on 40mg bid) starting tomorrow -cont Entresto 49/51 daily. -should confirm indication for Entresto as LV function normal this admission -continue current home medications A.Fib/A.Flutter: -continue home medications: Xarelto daily -Metoprolol 100 mg qd Hemoptysis: -f/u pulmonary work up -can cont Xarelto at this time
[2018-08-28] MEDS: traMADol HCL 50 MG TABLET PO PRN (16:18)
[2018-08-28] MEDS: RIVAROXABAN 20 MG TABLET PO SCH (17:03)
[2018-08-28] MEDS ORDERED: INSULIN (NOVOLOG) ASPART 100 UNITS/ML 10ML VIAL ONE (21:17)
[2018-08-28] MEDS: INSULIN (LEVEMIR) 100 UNITS/ML UNITS SQ SCH (22:18)
[2018-08-28] MEDS: ATORVASTATIN CA 20 MG TABLET (FP) PO SCH (22:18)
--- NOTE | 2018-08-29 00:49 | CONSULT ---
Consult Consult Specialty:: endocrine Referred by:: maria elena warren md Reason for Consultation:: diabetes mellitus uncontrolled - History of Present Illness Chief Complaint: high sugars History of Present Illness: 63-year-old male with dm 2 ,diabetic neuropathy,pad, COPD presents with cough and chest congestion and wheezing for 3 weeks, now with occasional blood-tinged sputum for 3 days. Chills but no fever, no night sweats, no chest pain or lung pain. Has been taking his home nebulizers only temporary improvement, presents today for evaluation given the blood-tinged sputum. he has difficulty controlling blood sugars with frequent high sugars despite taking insulin doses frequently. he feels his diet is to blame. - History Source History Provided By: Patient - Past Medical History Cardio/Vascular: Yes: AFIB, CAD, CHF, HTN, Hyperlipdemia, MS Pulmonary: Yes: COPD, Other (pleural effusion). No: O2 Dependent Infectious Disease: Yes: MRSA. 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 History of Recent Travel: No Home Medications - Allergies Allergies/Adverse Reactions: Allergies Allergy/AdvReac Type Severity Reaction Status Date / Time No Known Allergies Allergy Verified 08/27/18 07:42 - Home Medications Home Medications: Ambulatory Orders Insulin Glargine,Hum.rec.anlog [Basaglar Kwikpen U-100] 30 unit SQ HS 07/09/17 Aspirin [ASA -] 81 mg PO DAILY #0 tab 07/11/17 Glimepiride [Amaryl -] 4 mg PO DAILY@0700 #0 tab 07/11/17 Simvastatin [Zocor -] 20 mg PO DAILY #0 tab 07/11/17 Furosemide [Lasix] 40 mg PO BID 10/26/17 Gabapentin 300 mg PO DAILY 10/26/17 Metoprolol Succinate [Toprol XL -] 100 mg PO DAILY 10/26/17 Rivaroxaban [Xarelto -] 20 mg PO DAILY 10/26/17 Tamsulosin HCl [Flomax -] 0.4 mg PO DAILY 10/26/17 Ipratropium 0.02% Nebulizer [Atrovent 0.02% Nebulizer -] 1 amp NEB RQID #120 amp 11/02/17 Isosorbide Mononitrate [Imdur -] 60 mg PO DAILY #30 tab.sr.24h 11/02/17 Digoxin [Lanoxin -] 0.125 mg PO DAILY #30 tablet MDD 1 05/09/18 Potassium Chloride [K-Dur -] 20 meq PO DAILY #20 tablet.er MDD 1 05/09/18 traMADol HCL [Ultram -] 50 mg PO Q6H PRN #10 tablet MDD 4 05/09/18 Insulin NPH Hum/Reg Insulin Hm [Novolin 70-30 100 Unit/ml Vial] 10 unit SQ BID 08/27/18 Sacubitril/Valsartan [Entresto 49 mg-51 mg Tablet] 1 tab PO DAILY 08/27/18 Family Disease History - Family Disease History Family Disease History: Other: Father (dialysis) Review of Systems - Review of Systems Constitutional: reports: Weakness Eyes: reports: Blurred Vision HENT: reports: No Symptoms Neck: reports: No Symptoms Cardiovascular: reports: Palpitations, Shortness of Breath Respiratory: reports: Exercise Intolerance, SOB, SOB on Exertion Gastrointestinal: reports: Bloating, Nausea Breasts: reports: No Symptoms Reported Musculoskeletal: reports: Extremity Pain, Joint Pain, Joint Swelling, Muscle Pain, Muscle Cramps, Muscle Weakness Integumentary: reports: Blister, Lesions, Wound Neurological: reports: Numbness, Weakness Endocrine: reports: Unexplained Weight Gain Physical Exam Vital Signs: Vital Signs Temperature 97.3 F L 08/28/18 18:00 Pulse Rate 69 08/28/18 18:00 Respiratory Rate 20 08/28/18 18:00 Blood Pressure 160/94 08/28/18 18:00 O2 Sat by Pulse Oximetry (%) 96 08/28/18 08:52 Constitutional: Yes: Calm Eyes: Yes: EOM Intact HENT: Yes: Normocephalic Neck: Yes: Trachea Midline Cardiovascular: Yes: Pulse Irregular, Murmur Respiratory: Yes: Rhonchi, SOB, Tachypnea, Wheezes Gastrointestinal: Yes: Normal Bowel Sounds ...Rectal Exam: Yes: Deferred Renal/: Yes: WNL Musculoskeletal: Yes: Joint Stiffness Extremities: Yes: Cool, Delayed Capillary Refill, Erythema Edema: Yes Edema: LLE: 1+, RLE: 1+ Integumentary: Yes: Venous Stasis Changes Neurological: Yes: Alert, Oriented ...Motor Strength: WNL Psychiatric: Yes: Alert, Oriented Labs: CBC, BMP 08/28/18 05:30 08/28/18 05:30 Problem List - Problems (1) Type 2 diabetes mellitus with diabetic polyneuropathy Code(s): E11.42 - TYPE 2 DIABETES MELLITUS WITH DIABETIC POLYNEUROPATHY (2) Bronchitis Code(s): J40 - BRONCHITIS, NOT SPECIFIED ACUTE OR CHRONIC (3) Leg ulcer, left Code(s): L97.929 - NON-PRS CHRONIC ULC UNSP PRT OF L LOW LEG W UNSP SEVERITY (4) Acute exacerbation of chronic obstructive pulmonary disease (COPD) Code(s): J44.1 - CHRONIC OBSTRUCTIVE PULMONARY DISEASE W (ACUTE) EXACERBATION Assessment/Plan Current Active Problems diabetes mellitus neuropathy/pad Bronchitis (Acute) Cough with hemoptysis (Acute) Elevated troponin (Acute) Hemoptysis (Acute) Leg ulcer, left (Acute) NSTEMI (non-ST elevated myocardial infarction) (Acute) Abnormal Lab Results 08/28/18 08/28/18 08/28/18 05:30 05:30 05:30 WBC 10.4 H Hgb 10.8 L Hct 33.0 L MCV 79.4 L Absolute Neuts (auto) 8.8 H Neutrophils % 85.0 H BUN 30 H Random Glucose 288 H Hemoglobin A1c % 8.2 H Calcium 8.1 L Total Bilirubin 3.5 H CK-MB (CK-2) 3.9 H Troponin I 0.38 H Total Protein 5.5 L Albumin 2.4 L HDL Cholesterol 38 L Digoxin 0.14 L Laboratory Results - last 24 hr 08/28/18 08/28/18 08/28/18 03:22 05:30 05:30 WBC 10.4 H RBC 4.15 Hgb 10.8 L Hct 33.0 L MCV 79.4 L MCH 25.9 MCHC 32.6 RDW 15.9 Plt Count 240 MPV 9.2 Absolute Neuts (auto) 8.8 H Neutrophils % 85.0 H Lymphocytes % 10.4 D Monocytes % 4.4 Eosinophils % 0.0 D Basophils % 0.2 Nucleated RBC % 0 Sodium 139 Potassium 3.6 Chloride 104 Carbon Dioxide 27 Anion Gap 9 BUN 30 H Creatinine 1.2 Creat Clearance w eGFR > 60 POC Glucometer 380 Random Glucose 288 H Hemoglobin A1c % Calcium 8.1 L Phosphorus 3.3 Magnesium 1.8 Total Bilirubin 3.5 H AST 19 ALT 36 Alkaline Phosphatase 106 Creatine Kinase 153 Creatine Kinase Index 2.5 CK-MB (CK-2) 3.9 H Troponin I 0.38 H Total Protein 5.5 L Albumin 2.4 L Triglycerides 67 Cholesterol 104 Total LDL Cholesterol 68 HDL Cholesterol 38 L Digoxin 0.14 L 08/28/18 08/28/18 08/28/18 05:30 05:30 05:56 WBC RBC Hgb Hct MCV MCH MCHC RDW Plt Count MPV Absolute Neuts (auto) Neutrophils % Lymphocytes % Monocytes % Eosinophils % Basophils % Nucleated RBC % Sodium Potassium Chloride Carbon Dioxide Anion Gap BUN Creatinine Creat Clearance w eGFR POC Glucometer 260 Random Glucose Hemoglobin A1c % 8.2 H Calcium Phosphorus Magnesium Total Bilirubin AST ALT Alkaline Phosphatase Creatine Kinase Creatine Kinase Index Cancelled CK-MB (CK-2) Cancelled Troponin I Total Protein Albumin Triglycerides Cholesterol Total LDL Cholesterol HDL Cholesterol Digoxin 08/28/18 08/28/18 08/28/18 11:53 16:50 22:12 WBC RBC Hgb Hct MCV MCH MCHC RDW Plt Count MPV Absolute Neuts (auto) Neutrophils % Lymphocytes % Monocytes % Eosinophils % Basophils % Nucleated RBC % Sodium Potassium Chloride Carbon Dioxide Anion Gap BUN Creatinine Creat Clearance w eGFR POC Glucometer 254 328 418 Random Glucose Hemoglobin A1c % Calcium Phosphorus Magnesium Total Bilirubin AST ALT Alkaline Phosphatase Creatine Kinase Creatine Kinase Index CK-MB (CK-2) Troponin I Total Protein Albumin Triglycerides Cholesterol Total LDL Cholesterol HDL Cholesterol Digoxin plan bgm qid novolog scale adjustment while on steroid levemir 30 units bid while on steroid
[2018-08-29] MEDS: methylPREDNISolone NA SUCC 40 MG/1 ML VIAL IVPUSH SCH ×3 (03:09→17:29)
[2018-08-29] MEDS: traMADol HCL 50 MG TABLET PO PRN ×3 (06:14→22:24)
[2018-08-29] MEDS: INSULIN SLIDING SCALE (NOVOLOG) 1 VIAL SQ SCH ×5 (06:16→22:17)
[2018-08-29] MEDS: INSULIN (LEVEMIR) 100 UNITS/ML UNITS SQ SCH ×2 (06:17→22:11)
[2018-08-29] MEDS: GABAPENTIN 300 MG CAPSULE (FP) PO SCH (10:03)
[2018-08-29] MEDS: ISOSORBIDE MONONITRATE 60 MG TAB.SR.24H (FP) PO SCH (10:03)
[2018-08-29] MEDS: FUROSEMIDE 40 MG TABLET (FP) PO SCH (10:03)
[2018-08-29] MEDS: TAMSULOSIN HCL 0.4 MG CAP PO SCH (10:03)
[2018-08-29] MEDS: DIGOXIN 0.125 MG TABLET (FP) PO SCH (10:04)
[2018-08-29] MEDS ORDERED: cefTRIAXone SODIUM 1 GM VIAL ONE (10:20)
[2018-08-29] MEDS ORDERED: DEXTROSE 5%-WATER - 50 ML IVPB ONE (10:21)
[2018-08-29] MEDS: CEFTRIAXONE 1 GM in DEXTROSE 5%-WATER - 50 ML IVPB SCH (10:23)
[2018-08-29] MEDS: SACUBITRIL/VALSARTAN 49 MG-51 MG TABLET PO SCH ×2 (10:26→22:01)
--- NOTE | 2018-08-29 11:27 | PN ---
Progress Note, Physician Chief Complaint: COPD exacerbation CHF History of Present Illness: NAD Seen by Pulmonary, cardiology and ID On medrol 40 mg Q8h IVP On ceftriaxone 1 gm daily - Current Medication List Current Medications: Active Medications Atorvastatin Calcium (Lipitor -) 20 mg PO HS [facility] Last Admin: 08/28/18 22:18 Dose: 20 mg Digoxin (Lanoxin -) 0.125 mg PO DAILY [facility] Last Admin: 08/29/18 10:04 Dose: 0.125 mg Furosemide (Lasix -) 40 mg PO DAILY [facility] Last Admin: 08/29/18 10:03 Dose: 40 mg Gabapentin (Neurontin -) 300 mg PO DAILY@0800 [facility] Last Admin: 08/29/18 10:03 Dose: 300 mg Ceftriaxone Sodium 1 gm/ (Dextrose) 50 mls @ 200 mls/hr IVPB DAILY [facility]; Protocol Last Admin: 08/29/18 10:23 Dose: 200 mls/hr Insulin Aspart (Novolog Vial Sliding Scale -) 1 vial SQ ACHS [facility]; Protocol Last Admin: 08/29/18 06:16 Dose: 5 units Insulin Detemir (Levemir Vial) 30 units SQ BID@0700,2200 [facility] Last Admin: 08/29/18 06:17 Dose: 30 units Ipratropium [place] (Atrovent 0.02% Nebulizer -) 1 amp NEB Q6H PRN PRN Reason: DYSPEPSIA Stop: 09/03/18 13:05 Last Admin: 08/27/18 21:18 Dose: 1 amp Isosorbide Mononitrate (Imdur -) 60 mg PO DAILY [facility] Last Admin: 08/29/18 10:03 Dose: 60 mg Methylprednisolone Sodium Succinate (Solu-Medrol -) 40 mg IVPUSH Q8H-IV [facility] Last Admin: 08/29/18 10:02 Dose: 40 mg Metoprolol Succinate (Toprol Xl -) 100 mg PO DAILY [facility] Last Admin: 08/29/18 10:03 Dose: 100 mg Rivaroxaban (Xarelto -) 20 mg PO DAILY@1800 [facility] Last Admin: 08/28/18 17:03 Dose: 20 mg Sacubitril/Valsartan (Entresto 49 Mg-51 Mg Tablet) 1 tab PO BID [facility] Last Admin: 08/29/18 10:26 Dose: 1 tab Tamsulosin HCl (Flomax -) 0.4 mg PO DAILY@0830 [facility] Last Admin: 08/29/18 10:03 Dose: 0.4 mg Tramadol HCl (Ultram -) 50 mg PO Q8H PRN PRN Reason: PAIN LEVEL 7 - 10 Last Admin: 08/29/18 06:14 Dose: 50 mg - Objective Vital Signs: Vital Signs Temperature 98.1 F 08/29/18 08:53 Pulse Rate 98 H 08/29/18 10:04 Respiratory Rate 18 08/29/18 08:53 Blood Pressure 172/97 H 08/29/18 08:53 O2 Sat by Pulse Oximetry (%) 98 08/29/18 08:49 Constitutional: Yes: Well Nourished, No Distress, Calm Cardiovascular: Yes: Pulse Irregular Respiratory: Yes: Regular Gastrointestinal: Yes: Normal Bowel Sounds, Soft Musculoskeletal: Yes: WNL Extremities: Yes: WNL Edema: Yes Edema: LLE: Trace, RLE: Trace Peripheral Pulses WNL: Yes Wound/Incision: Yes: Open to air (LLE) Neurological: Yes: Alert, Oriented Psychiatric: Yes: Alert, Oriented Labs: CBC, BMP 08/28/18 05:30 08/28/18 05:30 Problem List - Problems (1) Bronchitis Assessment/Plan: -Bronchodilators -iv steroids -oxygen as needed -pulmonary consult -ct lung without contrast to look at lung nodule- follow up outpatient with pulmonary -ID on board -IV abx Code(s): J40 - BRONCHITIS, NOT SPECIFIED ACUTE OR CHRONIC (2) Elevated troponin Assessment/Plan: -2/2 to demand ischemia due to COPD -Cardiology on board -troponins trending down Code(s): R74.8 - ABNORMAL LEVELS OF OTHER SERUM ENZYMES (3) Acute exacerbation of chronic obstructive pulmonary disease (COPD) Assessment/Plan: -Bronchodilators -iv steroids -oxygen as needed -pulmonary consult -ct lung without contrast to look at lung nodule- follow up outpatient with pulmonary -ID on board -IV abx Code(s): J44.1 - CHRONIC OBSTRUCTIVE PULMONARY DISEASE W (ACUTE) EXACERBATION (4) Atrial fibrillation Assessment/Plan: -On Xarelto -Cardiology consult -Rate controlled -Tele monitoring Code(s): I48.91 - UNSPECIFIED ATRIAL FIBRILLATION (5) Diabetes mellitus Assessment/Plan: -A1c at 8.2 -BGM AC HS -Diabetic low sodium diet -endocrinology consult -Insulin novolog and levemir 30 U BID -takes Basalgar 30 U in AM at home- would change to 30 U BID upon discharge Code(s): E11.9 - TYPE 2 DIABETES MELLITUS WITHOUT COMPLICATIONS Qualifiers: Diabetes mellitus type: type 2 Assessment/Plan see problem list self ambulatory
--- NOTE | 2018-08-29 14:31 | PN ---
Progress Note (short form) - Note Progress Note: PULMONARY States breathing is slowly improving. Leg swelling improving. Vital Signs Period Temp Pulse Resp BP Sys/Cohen Pulse Ox Last 24 Hr 97.3 F-98.1 F 66-98 18-20 141-178/79-97 7-98 Intake & Output 08/26/18 08/27/18 08/28/18 08/29/18 23:59 23:59 23:59 23:59 Intake Total 10 35 10 Balance 10 35 10 Weight 89.074 kg 88.904 kg 89.721 kg Gen: NAD at rest Heart: RRR Lung: decreased breath sounds at the bases, no wheezes Abd: soft, nontender Ext: + edema CBC, BMP 08/28/18 05:30 08/28/18 05:30 Active Medications Atorvastatin Calcium (Lipitor -) 20 mg PO HS [facility] Last Admin: 08/28/18 22:18 Dose: 20 mg Digoxin (Lanoxin -) 0.125 mg PO DAILY [facility] Last Admin: 08/29/18 10:04 Dose: 0.125 mg Furosemide (Lasix -) 40 mg PO DAILY [facility] Last Admin: 08/29/18 10:03 Dose: 40 mg Gabapentin (Neurontin -) 300 mg PO DAILY@0800 [facility] Last Admin: 08/29/18 10:03 Dose: 300 mg Ceftriaxone Sodium 1 gm/ (Dextrose) 50 mls @ 200 mls/hr IVPB DAILY [facility]; Protocol Last Admin: 08/29/18 10:23 Dose: 200 mls/hr Insulin Aspart (Novolog Vial Sliding Scale -) 1 vial SQ ACHS [facility]; Protocol Last Admin: 08/29/18 11:39 Dose: Not Given Insulin Detemir (Levemir Vial) 30 units SQ BID@0700,2200 [facility] Last Admin: 08/29/18 06:17 Dose: 30 units Ipratropium [place] (Atrovent 0.02% Nebulizer -) 1 amp NEB Q6H PRN PRN Reason: DYSPEPSIA Stop: 09/03/18 13:05 Last Admin: 08/27/18 21:18 Dose: 1 amp Isosorbide Mononitrate (Imdur -) 60 mg PO DAILY [facility] Last Admin: 08/29/18 10:03 Dose: 60 mg Methylprednisolone Sodium Succinate (Solu-Medrol -) 40 mg IVPUSH Q8H-IV [facility] Last Admin: 08/29/18 10:02 Dose: 40 mg Metoprolol Succinate (Toprol Xl -) 100 mg PO DAILY [facility] Last Admin: 08/29/18 10:03 Dose: 100 mg Rivaroxaban (Xarelto -) 20 mg PO DAILY@1800 [facility] Last Admin: 08/28/18 17:03 Dose: 20 mg Sacubitril/Valsartan (Entresto 49 Mg-51 Mg Tablet) 1 tab PO BID [facility] Last Admin: 08/29/18 10:26 Dose: 1 tab Tamsulosin HCl (Flomax -) 0.4 mg PO DAILY@0830 [facility] Last Admin: 08/29/18 10:03 Dose: 0.4 mg Tramadol HCl (Ultram -) 50 mg PO Q8H PRN PRN Reason: PAIN LEVEL 7 - 10 Last Admin: 08/29/18 14:14 Dose: 50 mg A/P Acute on Chronic Diastolic Heart Failure +Troponins likely Demand Ischemia Pulmonary HTN Atrial Fibrillation COPD HTN Hemoptysis - continue lasix - monitor urine output, creatinine - daily weights - O2 to keep SpO2 >90% - rate control - continue anticoagulation - monitor hemoptysis - inhaled bronchodilators - can decrease medrol to daily
--- NOTE | 2018-08-29 14:38 | PN ---
Progress Note, Physician Chief Complaint: Cardilogy FU Cough is better. Telem NSR - Current Medication List Current Medications: Active Medications Atorvastatin Calcium (Lipitor -) 20 mg PO HS [facility] Last Admin: 08/28/18 22:18 Dose: 20 mg Digoxin (Lanoxin -) 0.125 mg PO DAILY [facility] Last Admin: 08/29/18 10:04 Dose: 0.125 mg Furosemide (Lasix -) 40 mg PO DAILY [facility] Last Admin: 08/29/18 10:03 Dose: 40 mg Gabapentin (Neurontin -) 300 mg PO DAILY@0800 [facility] Last Admin: 08/29/18 10:03 Dose: 300 mg Ceftriaxone Sodium 1 gm/ (Dextrose) 50 mls @ 200 mls/hr IVPB DAILY [facility]; Protocol Last Admin: 08/29/18 10:23 Dose: 200 mls/hr Insulin Aspart (Novolog Vial Sliding Scale -) 1 vial SQ ACHS [facility]; Protocol Last Admin: 08/29/18 11:39 Dose: Not Given Insulin Detemir (Levemir Vial) 30 units SQ BID@0700,2200 [facility] Last Admin: 08/29/18 06:17 Dose: 30 units Ipratropium [place] (Atrovent 0.02% Nebulizer -) 1 amp NEB Q6H PRN PRN Reason: DYSPEPSIA Stop: 09/03/18 13:05 Last Admin: 08/27/18 21:18 Dose: 1 amp Isosorbide Mononitrate (Imdur -) 60 mg PO DAILY [facility] Last Admin: 08/29/18 10:03 Dose: 60 mg Methylprednisolone Sodium Succinate (Solu-Medrol -) 40 mg IVPUSH Q8H-IV [facility] Last Admin: 08/29/18 10:02 Dose: 40 mg Metoprolol Succinate (Toprol Xl -) 100 mg PO DAILY [facility] Last Admin: 08/29/18 10:03 Dose: 100 mg Rivaroxaban (Xarelto -) 20 mg PO DAILY@1800 [facility] Last Admin: 08/28/18 17:03 Dose: 20 mg Sacubitril/Valsartan (Entresto 49 Mg-51 Mg Tablet) 1 tab PO BID [facility] Last Admin: 08/29/18 10:26 Dose: 1 tab Tamsulosin HCl (Flomax -) 0.4 mg PO DAILY@0830 [facility] Last Admin: 08/29/18 10:03 Dose: 0.4 mg Tramadol HCl (Ultram -) 50 mg PO Q8H PRN PRN Reason: PAIN LEVEL 7 - 10 Last Admin: 08/29/18 14:14 Dose: 50 mg - Objective Vital Signs: Vital Signs Temperature 97.6 F 08/29/18 14:00 Pulse Rate 89 08/29/18 14:00 Respiratory Rate 20 08/29/18 14:00 Blood Pressure 141/79 08/29/18 14:00 O2 Sat by Pulse Oximetry (%) 98 08/29/18 08:49 Constitutional: Yes: Well Nourished, No Distress Eyes: Yes: Conjunctiva Clear, EOM Intact HENT: Yes: Atraumatic, Normocephalic Neck: Yes: Supple, Trachea Midline Cardiovascular: Yes: Regular Rate and Rhythm. No: JVD Respiratory: Yes: Regular, CTA Bilaterally Gastrointestinal: Yes: Normal Bowel Sounds, Soft Edema: Yes Edema: LLE: 1+, RLE: 1+ Labs: CBC, BMP 08/28/18 05:30 08/28/18 05:30 Problem List - Problems (1) Elevated troponin Code(s): R74.8 - ABNORMAL LEVELS OF OTHER SERUM ENZYMES Assessment/Plan 63 year old man with a PMHx of recent repeat ablation for A.Fib 07/05/18 at [facility], HTN, diastolic CHF with borderline reduced LVEF from echocardiogram on 10/2017, CAD s/p LAD PCI/stent in 2014, NSTEMI s/p cardiac cath at [facility] 04/2017 which revealed patent LAD stent, severe ramus intermedius (small caliber), non- obstructive LCx paroxysmal atrial fibrillation, s/p atrial fibrillation in 10/04 at [facility], atrial flutter in October 2017. Admitted to the hospital for URI with mild hemoptysis and was found to have a mildly elevated troponin with normal CK level States he was taken off Lasix 1-2 weeks ago and his Entresto dose was increased. states he has not been urinating as much as he was when he was on Lasix. Elevated troponin: known h/o CAD Most likely caused by demand ischemia considering that the patient has URI for the past 3 weeks. Less likely NSTEMI -troponin did not significantly trend up and CK levels are wnl -ECHO 08/27/18 showed normal LVEF, mild RV dysfunction, mild JUANA, small pericardial effusion -EKG with NSR, normal axis, non specific t wave inversions in aVL, II, V1, V2, V3, V5, V6, -recent cardiac cath showed patent LAD stent, otherwise non-obstructive and small vessel disease -cont Toprol and Lipitor -no additional ischemic work up needed at this time. Afib/aflutter-with prior ablations for both and recent repeat AFib ablation a few months ago at [facility] -nsr now -continue Xarelto 20 mg, Metoprolol 100 mg daily -continue treatment for possible URI/PNA/COPD Diastiolic CHF:mild volume overload with pleural effusion, LE edema, small pericardial effusion -Continue lasix 40mg daily A.Fib/A.Flutter: -continue home medications: Xarelto daily -Metoprolol 100 mg qd Hemoptysis: -f/u pulmonary work up -can cont Xarelto at this time will see as needed.
[2018-08-29] MEDS ORDERED: INSULIN (NOVOLOG) ASPART 100 UNITS/ML 10ML VIAL ONE (17:08)
[2018-08-29] MEDS: RIVAROXABAN 20 MG TABLET PO SCH (17:29)
--- NOTE | 2018-08-29 18:03 | PN ---
Progress Note (short form) - Note Progress Note: clinically improved less leg swelling cough resolved sob improving Vital Signs Period Temp Pulse Resp BP Sys/Cohen Pulse Ox Last 24 Hr 97.4 F-98.1 F 66-98 18-20 141-178/79-97 7-98 cor-rrr lungs decreeased bs at bases abd soft,nt ext +edema CBC, BMP 08/28/18 05:30 08/28/18 05:30 Current Medications Atorvastatin Calcium (Lipitor -) 20 mg PO HS [facility] Last Admin: 08/28/18 22:18 Dose: 20 mg Digoxin (Lanoxin -) 0.125 mg PO DAILY [facility] Last Admin: 08/29/18 10:04 Dose: 0.125 mg Furosemide (Lasix -) 40 mg PO DAILY [facility] Last Admin: 08/29/18 10:03 Dose: 40 mg Gabapentin (Neurontin -) 300 mg PO DAILY@0800 [facility] Last Admin: 08/29/18 10:03 Dose: 300 mg Ceftriaxone Sodium 1 gm/ (Dextrose) 50 mls @ 200 mls/hr IVPB DAILY [facility]; Protocol Last Admin: 08/29/18 10:23 Dose: 200 mls/hr Insulin Aspart (Novolog Vial Sliding Scale -) 1 vial SQ ACHS [facility]; Protocol Last Admin: 08/29/18 17:28 Dose: 5 units Insulin Detemir (Levemir Vial) 30 units SQ BID@0700,2200 [facility] Last Admin: 08/29/18 06:17 Dose: 30 units Ipratropium [place] (Atrovent 0.02% Nebulizer -) 1 amp NEB Q6H PRN PRN Reason: DYSPEPSIA Stop: 09/03/18 13:05 Last Admin: 08/27/18 21:18 Dose: 1 amp Isosorbide Mononitrate (Imdur -) 60 mg PO DAILY [facility] Last Admin: 08/29/18 10:03 Dose: 60 mg Methylprednisolone Sodium Succinate (Solu-Medrol -) 40 mg IVPUSH Q8H-IV [facility] Last Admin: 08/29/18 17:29 Dose: 40 mg Metoprolol Succinate (Toprol Xl -) 100 mg PO DAILY [facility] Last Admin: 08/29/18 10:03 Dose: 100 mg Rivaroxaban (Xarelto -) 20 mg PO DAILY@1800 [facility] Last Admin: 08/29/18 17:29 Dose: 20 mg Sacubitril/Valsartan (Entresto 49 Mg-51 Mg Tablet) 1 tab PO BID [facility] Last Admin: 08/29/18 10:26 Dose: 1 tab Tamsulosin HCl (Flomax -) 0.4 mg PO DAILY@0830 [facility] Last Admin: 08/29/18 10:03 Dose: 0.4 mg Tramadol HCl (Ultram -) 50 mg PO Q8H PRN PRN Reason: PAIN LEVEL 7 - 10 Last Admin: 08/29/18 14:14 Dose: 50 mg a/p copd exacerbation bronchitis chf exacerbation clinically improving can switch to po ceftin 500 bid in am for 5 days please call back if needed Problem List - Problems (1) Acute exacerbation of chronic obstructive pulmonary disease (COPD) Code(s): J44.1 - CHRONIC OBSTRUCTIVE PULMONARY DISEASE W (ACUTE) EXACERBATION (2) Bronchitis Code(s): J40 - BRONCHITIS, NOT SPECIFIED ACUTE OR CHRONIC (3) Cough with hemoptysis Code(s): R04.2 - HEMOPTYSIS (4) NSTEMI (non-ST elevated myocardial infarction) Code(s): I21.4 - NON-ST ELEVATION (NSTEMI) MYOCARDIAL INFARCTION (5) Leg ulcer, left Code(s): L97.929 - NON-PRS CHRONIC ULC UNSP PRT OF L LOW LEG W UNSP SEVERITY
[2018-08-29] MEDS ORDERED: PT OWN MED DRAWER 7, Y5N ONE (21:59)
[2018-08-29] MEDS: ATORVASTATIN CA 20 MG TABLET (FP) PO SCH (22:01)
[2018-08-30] MEDS ORDERED: INSULIN (NOVOLOG) ASPART 100 UNITS/ML 10ML VIAL ONE (06:21)
[2018-08-30] MEDS ORDERED: INSULIN (LEVEMIR) 100 UNITS/ML UNITS SQ ONE (06:21)
[2018-08-30] MEDS: INSULIN (LEVEMIR) 100 UNITS/ML UNITS SQ SCH (06:29)
[2018-08-30] MEDS: INSULIN SLIDING SCALE (NOVOLOG) 1 VIAL SQ SCH ×4 (06:30→21:54)
[2018-08-30] MEDS ORDERED: PT OWN MED DRAWER 7, Y5N ONE ×2 (07:23→09:22)
[2018-08-30] MEDS: GABAPENTIN 300 MG CAPSULE (FP) PO SCH (08:44)
[2018-08-30] MEDS: TAMSULOSIN HCL 0.4 MG CAP PO SCH (08:44)
[2018-08-30] MEDS: predniSONE 20 MG TABLET (UD) PO SCH (09:32)
[2018-08-30] MEDS: CEFUROXIME AXETIL 500 MG TABLET PO SCH ×2 (09:32→21:52)
[2018-08-30] MEDS: ISOSORBIDE MONONITRATE 60 MG TAB.SR.24H (FP) PO SCH (09:33)
[2018-08-30] MEDS: SACUBITRIL/VALSARTAN 49 MG-51 MG TABLET PO SCH (09:33)
[2018-08-30] MEDS: DIGOXIN 0.125 MG TABLET (FP) PO SCH (09:33)
[2018-08-30] MEDS: FUROSEMIDE 40 MG TABLET (FP) PO SCH (09:34)
[2018-08-30] MEDS: traMADol HCL 50 MG TABLET PO PRN ×2 (09:35→18:18)
--- NOTE | 2018-08-30 11:16 | DS ---
Physical Examination Vital Signs: Vital Signs Temperature 98.5 F 08/30/18 05:53 Pulse Rate 68 08/30/18 09:33 Respiratory Rate 18 08/30/18 05:53 Blood Pressure 178/95 H 08/30/18 05:53 O2 Sat by Pulse Oximetry (%) 98 08/29/18 21:00 Findings/Remarks: 63-year-old male with multiple medical problems including COPD presents with cough and chest congestion and wheezing for 3 weeks, now with occasional blood- tinged sputum for 3 days. Chills but no fever, no night sweats, no chest pain or lung pain. Has been taking his home nebulizers only temporary improvement, presents today for evaluation given the blood-tinged sputum. He is on xarelto for afib, had an episode of epistaxis that was brief yesterday, otherwise denies any other bleeding dyscrasias No exertional or positional chest pain, no nausea or vomiting. Constitutional: Yes: Well Nourished, No Distress, Calm Cardiovascular: Yes: Pulse Irregular Respiratory: Yes: Regular Gastrointestinal: Yes: Normal Bowel Sounds, Soft Musculoskeletal: Yes: WNL Extremities: Yes: WNL Edema: Yes Edema: LLE: Trace, RLE: Trace Peripheral Pulses WNL: Yes Wound/Incision: Yes: Open to air Neurological: Yes: Alert, Oriented Psychiatric: Yes: Alert, Oriented Labs: CBC, BMP 08/28/18 05:30 08/28/18 05:30 Discharge Summary Reason For Visit: ELEVATED TROPONIN LEVEL Current Active Problems Bronchitis (Acute) Cough with hemoptysis (Acute) Elevated troponin (Acute) Hemoptysis (Acute) Leg ulcer, left (Acute) NSTEMI (non-ST elevated myocardial infarction) (Acute) Type 2 diabetes mellitus with diabetic polyneuropathy (Acute) Hospital Course: Laboratory Last Values WBC 10.4 K/mm3 (4.0-10.0) H 08/28/18 05:30 RBC 4.15 M/mm3 (4.00-5.60) 08/28/18 05:30 Hgb 10.8 GM/dL (11.7-16.9) L 08/28/18 05:30 Hct 33.0 % (35.4-49) L 08/28/18 05:30 MCV 79.4 fl (80-96) L 08/28/18 05:30 MCH 25.9 pg (25.7-33.7) 08/28/18 05:30 MCHC 32.6 g/dl (32.0-35.9) 08/28/18 05:30 RDW 15.9 % (11.9-15.9) 08/28/18 05:30 Plt Count 240 K/MM3 (134-434) 08/28/18 05:30 MPV 9.2 fl (7.5-11.1) 08/28/18 05:30 Absolute Neuts (auto) 8.8 K/mm3 (1.5-8.0) H 08/28/18 05:30 Neutrophils % 85.0 % (42.8-82.8) H 08/28/18 05:30 Lymphocytes % 10.4 % (8-40) D 08/28/18 05:30 Monocytes % 4.4 % (3.8-10.2) 08/28/18 05:30 Eosinophils % 0.0 % (0-4.5) D 08/28/18 05:30 Basophils % 0.2 % (0-2.0) 08/28/18 05:30 Nucleated RBC % 0 % (0-0) 08/28/18 05:30 Sodium 139 mmol/L (136-145) 08/28/18 05:30 Potassium 3.6 mmol/L (3.5-5.1) 08/28/18 05:30 Chloride 104 mmol/L (98-107) 08/28/18 05:30 Carbon Dioxide 27 mmol/L (21-32) 08/28/18 05:30 Anion Gap 9 MMOL/L (8-16) 08/28/18 05:30 BUN 30 mg/dL (7-18) H 08/28/18 05:30 Creatinine 1.2 mg/dL (0.55-1.3) 08/28/18 05:30 Creat Clearance w eGFR > 60 (>60) 08/28/18 05:30 POC Glucometer 166 UNITS (80-120) 08/30/18 05:27 Random Glucose 288 mg/dL (74-106) H 08/28/18 05:30 Hemoglobin A1c % 8.2 % (4.2-6.3) H 08/28/18 05:30 Calcium 8.1 mg/dL (8.5-10.1) L 08/28/18 05:30 Phosphorus 3.3 mg/dL (2.5-4.9) 08/28/18 05:30 Magnesium 1.8 mg/dL (1.8-2.4) 08/28/18 05:30 Total Bilirubin 3.5 mg/dL (0.2-1) H 08/28/18 05:30 AST 19 U/L (15-37) 08/28/18 05:30 ALT 36 U/L (13-61) 08/28/18 05:30 Alkaline Phosphatase 106 U/L (45-117) 08/28/18 05:30 Creatine Kinase 153 IU/L (26-308) 08/28/18 05:30 Creatine Kinase Index 2.5 % (0.0-5.0) 08/28/18 05:30 CK-MB (CK-2) 3.9 ng/mL (0.5-3.6) H 08/28/18 05:30 Troponin I 0.38 ng/ml (0.00-0.05) H 08/28/18 05:30 B-Natriuretic Peptide 7382.5 pg/ml (5-125) H 08/27/18 20:15 Total Protein 5.5 g/dl (6.4-8.2) L 08/28/18 05:30 Albumin 2.4 g/dl (3.4-5.0) L 08/28/18 05:30 Triglycerides 67 mg/dL (0-150) 08/28/18 05:30 Cholesterol 104 mg/dL (50-200) 08/28/18 05:30 Total LDL Cholesterol 68 mg/dL (5-100) 08/28/18 05:30 HDL Cholesterol 38 mg/dL (40-60) L 08/28/18 05:30 Urine Color Alexia 08/27/18 10:50 Urine Appearance Clear 08/27/18 10:50 Urine pH 6.0 (5.0-8.0) 08/27/18 10:50 Ur Specific [place] 1.026 (1.010-1.035) 08/27/18 10:50 Urine Protein 3+ (NEGATIVE) H 08/27/18 10:50 Urine Glucose (UA) 3+ (NEGATIVE) H 08/27/18 10:50 Urine Ketones Negative (NEGATIVE) 08/27/18 10:50 Urine Blood 1+ (NEGATIVE) H 08/27/18 10:50 Urine Nitrite Negative (NEGATIVE) 08/27/18 10:50 Urine Bilirubin 2.0 (<2.0 mg/dL) 08/27/18 10:50 Urine Urobilinogen 4.0 e.u/dl mg/dL (0.2-1.0) 08/27/18 10:50 Ur Leukocyte Esterase Negative (NEGATIVE) 08/27/18 10:50 Urine WBC (Auto) 3 /hpf (3-5) 08/27/18 10:50 Urine RBC (Auto) 25 /hpf (0-3) 08/27/18 10:50 Ur Epithelial Cells Rare /HPF (FEW) 08/27/18 10:50 Digoxin 0.14 ng/ml (0.8-2.0) L 08/28/18 05:30 Microbiology 08/28/18 18:20 Sputum - Expectorated Gram Stain - Final Condition: Stable - Instructions Diet, Activity, Other Instructions: Prednisone directions: 40 mg daily x 2 days, then 30 mg daily x 2 days, then 20 mg daily for 2 days, then 10 mg daily x 2 days, then 5 mg daily x 2 days, then stop -Change basalgar to 30 U 2 x day -Ceftin 500 mg 2 x day for 7 days -Follow up with PCP, endocrinology and cardiology within 2 weeks Referrals: Harinder Hardy MD [Primary Care Provider] - Randy Manuel MD [Staff Physician] - Luther Reynoso MD [Staff Physician] - Disposition: VNS/HOME HEALTH CARE - Home Medications Comprehensive Discharge Medication List: Ambulatory Orders Aspirin [ASA -] 81 mg PO DAILY #0 tab 07/11/17 Glimepiride [Amaryl -] 4 mg PO DAILY@0700 #0 tab 07/11/17 Simvastatin [Zocor -] 20 mg PO DAILY #0 tab 07/11/17 Gabapentin 300 mg PO DAILY 10/26/17 Metoprolol Succinate [Toprol XL -] 100 mg PO DAILY 10/26/17 Rivaroxaban [Xarelto -] 20 mg PO DAILY 10/26/17 Tamsulosin HCl [Flomax -] 0.4 mg PO DAILY 10/26/17 Ipratropium 0.02% Nebulizer [Atrovent 0.02% Nebulizer -] 1 amp NEB RQID #120 amp 11/02/17 Isosorbide Mononitrate [Imdur -] 60 mg PO DAILY #30 tab.sr.24h 11/02/17 Digoxin [Lanoxin -] 0.125 mg PO DAILY #30 tablet MDD 1 05/09/18 Potassium Chloride [K-Dur -] 20 meq PO DAILY #20 tablet.er MDD 1 05/09/18 traMADol HCL [Ultram -] 50 mg PO Q6H PRN #10 tablet MDD 4 05/09/18 Sacubitril/Valsartan [Entresto 49 mg-51 mg Tablet] 1 tab PO DAILY 08/27/18 Cefuroxime Axetil [Ceftin -] 500 mg PO BID #14 tablet 08/30/18 Furosemide [Lasix] 40 mg PO DAILY #30 tab 08/30/18 Insulin Glargine,Hum.rec.anlog [Basaglar Kwikpen U-100] 30 unit SQ BID #1 ea 07/09 predniSONE [Deltasone -] 10 mg PO ASDIR #30 tab 08/30/18
--- NOTE | 2018-08-30 12:28 | PN ---
Progress Note, Physician History of Present Illness: pulmonary alert,feeling better,-cp,-sob - Current Medication List Current Medications: Active Medications Atorvastatin Calcium (Lipitor -) 20 mg PO HS [facility] Last Admin: 08/29/18 22:01 Dose: 20 mg Cefuroxime Axetil (Ceftin -) 500 mg PO BID [facility] Last Admin: 08/30/18 09:32 Dose: 500 mg Digoxin (Lanoxin -) 0.125 mg PO DAILY [facility] Last Admin: 08/30/18 09:33 Dose: 0.125 mg Furosemide (Lasix -) 40 mg PO DAILY [facility] Last Admin: 08/30/18 09:34 Dose: 40 mg Gabapentin (Neurontin -) 300 mg PO DAILY@0800 [facility] Last Admin: 08/30/18 08:44 Dose: 300 mg Insulin Aspart (Novolog Vial Sliding Scale -) 1 vial SQ [facility]; Protocol Last Admin: 08/30/18 11:13 Dose: Not Given Insulin Detemir (Levemir Vial) 30 units SQ BID@0700,2200 [facility] Last Admin: 08/30/18 06:29 Dose: 30 units Ipratropium [place] (Atrovent 0.02% Nebulizer -) 1 amp NEB Q6H PRN PRN Reason: DYSPEPSIA Stop: 09/03/18 13:05 Last Admin: 08/27/18 21:18 Dose: 1 amp Isosorbide Mononitrate (Imdur -) 60 mg PO DAILY [facility] Last Admin: 08/30/18 09:33 Dose: 60 mg Metoprolol Succinate (Toprol Xl -) 100 mg PO DAILY [facility] Last Admin: 08/30/18 09:34 Dose: 100 mg Prednisone (Deltasone -) 40 mg PO DAILY [facility] Last Admin: 08/30/18 09:32 Dose: 40 mg Rivaroxaban (Xarelto -) 20 mg PO DAILY@1800 [facility] Last Admin: 08/29/18 17:29 Dose: 20 mg Sacubitril/Valsartan (Entresto 49 Mg-51 Mg Tablet) 1 tab PO BID [facility] Last Admin: 08/30/18 09:33 Dose: 1 tab Tamsulosin HCl (Flomax -) 0.4 mg PO DAILY@0830 [facility] Last Admin: 08/30/18 08:44 Dose: 0.4 mg Tramadol HCl (Ultram -) 50 mg PO Q8H PRN PRN Reason: PAIN LEVEL 7 - 10 Last Admin: 08/30/18 09:35 Dose: 50 mg - Objective Vital Signs: Vital Signs Temperature 97.8 F 08/30/18 09:00 Pulse Rate 73 08/30/18 11:58 Respiratory Rate 20 08/30/18 11:58 Blood Pressure 194/122 H 08/30/18 11:58 O2 Sat by Pulse Oximetry (%) 98 08/30/18 09:00 Constitutional: Yes: Well Nourished, Calm Eyes: Yes: WNL HENT: Yes: WNL Neck: Yes: WNL Cardiovascular: Yes: Pulse Irregular, S1, S2 Respiratory: Yes: CTA Bilaterally Gastrointestinal: Yes: Normal Bowel Sounds, Soft Extremities: Yes: WNL Edema: Yes Labs: CBC, BMP Problem List - Problems (1) Elevated troponin Code(s): R74.8 - ABNORMAL LEVELS OF OTHER SERUM ENZYMES (2) Hemoptysis Code(s): R04.2 - HEMOPTYSIS (3) Acute exacerbation of chronic obstructive pulmonary disease (COPD) Code(s): J44.1 - CHRONIC OBSTRUCTIVE PULMONARY DISEASE W (ACUTE) EXACERBATION (4) Atrial fibrillation Code(s): I48.91 - UNSPECIFIED ATRIAL FIBRILLATION (5) CAD S/P percutaneous coronary angioplasty Code(s): I25.10 - ATHSCL HEART DISEASE OF [place] CORONARY ARTERY W/O ANG PCTRS; Z98.61 - CORONARY ANGIOPLASTY STATUS (6) CHF (congestive heart failure) Code(s): I50.9 - HEART FAILURE, UNSPECIFIED (7) Diabetes mellitus Code(s): E11.9 - TYPE 2 DIABETES MELLITUS WITHOUT COMPLICATIONS Qualifiers: Diabetes mellitus type: type 2 (8) Dyspnea Code(s): R06.00 - DYSPNEA, UNSPECIFIED (9) H/O heart artery stent Code(s): Z95.5 - PRESENCE OF CORONARY ANGIOPLASTY IMPLANT AND GRAFT Assessment/Plan IMP COPD EXACERBATION URI DIASTOLIC CHF + TROPONINS AFIB HEMOPTYSIS PULMONARY HTN HTN PLAN ABX O2 INHALED BRONCHODILATORS TREND TROPONIN QUANTIFY HEMOPTYSIS TITRATE BP MEDS PREDNISONE DR GOMEZ Problem List - Problems (1) Elevated troponin Code(s): R74.8 - ABNORMAL LEVELS OF OTHER SERUM ENZYMES (2) Hemoptysis Code(s): R04.2 - HEMOPTYSIS (3) Acute exacerbation of chronic obstructive pulmonary disease (COPD) Code(s): J44.1 - CHRONIC OBSTRUCTIVE PULMONARY DISEASE W (ACUTE) EXACERBATION (4) Atrial fibrillation Code(s): I48.91 - UNSPECIFIED ATRIAL FIBRILLATION (5) CAD S/P percutaneous coronary angioplasty Code(s): I25.10 - ATHSCL HEART DISEASE OF [place] CORONARY ARTERY W/O ANG PCTRS; Z98.61 - CORONARY ANGIOPLASTY STATUS (6) CHF (congestive heart failure) Code(s): I50.9 - HEART FAILURE, UNSPECIFIED (7) Diabetes mellitus Code(s): E11.9 - TYPE 2 DIABETES MELLITUS WITHOUT COMPLICATIONS Qualifiers: Diabetes mellitus type: type 2 (8) Dyspnea Code(s): R06.00 - DYSPNEA, UNSPECIFIED (9) H/O heart artery stent Code(s): Z95.5 - PRESENCE OF CORONARY ANGIOPLASTY IMPLANT AND GRAFT
[2018-08-30] MEDS: LOSARTAN POTASSIUM 50 MG TABLET (FP) PO SCH (12:59)
[2018-08-30] MEDS: RIVAROXABAN 20 MG TABLET PO SCH (17:09)
[2018-08-30] MEDS ORDERED: INSULIN (LEVEMIR) 100 UNITS/ML UNITS SQ SCH ×2 (20:23→22:00)
--- NOTE | 2018-08-30 20:26 | PN ---
Progress Note (short form) - Note Progress Note: as sugar are improving will need less insulin doses Current Active Problems Bronchitis (Acute) Cough with hemoptysis (Acute) Elevated troponin (Acute) Hemoptysis (Acute) Leg ulcer, left (Acute) NSTEMI (non-ST elevated myocardial infarction) (Acute) Type 2 diabetes mellitus with diabetic polyneuropathy (Acute) Laboratory Results - last 24 hr 08/29/18 08/30/18 08/30/18 22:10 05:27 11:09 POC Glucometer 168 166 65 08/30/18 16:32 POC Glucometer 136 plan: levemir dose down 20 units am levemir 10 units hs less as dose of steroids decrease Problem List - Problems (1) Type 2 diabetes mellitus with diabetic polyneuropathy Code(s): E11.42 - TYPE 2 DIABETES MELLITUS WITH DIABETIC POLYNEUROPATHY (2) Bronchitis Code(s): J40 - BRONCHITIS, NOT SPECIFIED ACUTE OR CHRONIC (3) Leg ulcer, left Code(s): L97.929 - NON-PRS CHRONIC ULC UNSP PRT OF L LOW LEG W UNSP SEVERITY (4) Acute exacerbation of chronic obstructive pulmonary disease (COPD) Code(s): J44.1 - CHRONIC OBSTRUCTIVE PULMONARY DISEASE W (ACUTE) EXACERBATION
[2018-08-30] MEDS: ATORVASTATIN CA 20 MG TABLET (FP) PO SCH (21:52)
[2018-08-31] MEDS: INSULIN SLIDING SCALE (NOVOLOG) 1 VIAL SQ SCH (06:40)
[2018-08-31] MEDS ORDERED: INSULIN (LEVEMIR) 100 UNITS/ML UNITS SQ SCH (07:00)
[2018-08-31] MEDS ORDERED: PT OWN MED DRAWER 7, Y5N ONE (08:45)
--- NOTE | 2018-08-31 08:57 | PN ---
Progress Note, Physician Chief Complaint: COPD exacerbation CHF History of Present Illness: NAD Seen by Pulmonary, cardiology and ID BP much better On ceftin 500 mg po BID - Current Medication List Current Medications: Active Medications Atorvastatin Calcium (Lipitor -) 20 mg PO HS [facility] Last Admin: 08/30/18 21:52 Dose: 20 mg Cefuroxime Axetil (Ceftin -) 500 mg PO BID [facility] Last Admin: 08/30/18 21:52 Dose: 500 mg Digoxin (Lanoxin -) 0.125 mg PO DAILY [facility] Last Admin: 08/30/18 09:33 Dose: 0.125 mg Furosemide (Lasix -) 40 mg PO DAILY [facility] Last Admin: 08/30/18 09:34 Dose: 40 mg Gabapentin (Neurontin -) 300 mg PO DAILY@0800 [facility] Last Admin: 08/30/18 08:44 Dose: 300 mg Insulin Aspart (Novolog Vial Sliding Scale -) 1 vial SQ [facility]; Protocol Last Admin: 08/31/18 06:40 Dose: 3 units Insulin Detemir (Levemir Vial) 20 units SQ AM [facility] Last Admin: 08/31/18 06:39 Dose: 20 units Insulin Detemir (Levemir Vial) 10 units SQ HS [facility] Last Admin: 08/30/18 21:53 Dose: 10 units Ipratropium [place] (Atrovent 0.02% Nebulizer -) 1 amp NEB Q6H PRN PRN Reason: DYSPEPSIA Stop: 09/03/18 13:05 Last Admin: 08/27/18 21:18 Dose: 1 amp Isosorbide Mononitrate (Imdur -) 60 mg PO DAILY [facility] Last Admin: 08/30/18 09:33 Dose: 60 mg Losartan Potassium (Cozaar -) 50 mg PO DAILY [facility] Last Admin: 08/30/18 12:59 Dose: 50 mg Metoprolol Succinate (Toprol Xl -) 100 mg PO DAILY [facility] Last Admin: 08/30/18 09:34 Dose: 100 mg Prednisone (Deltasone -) 40 mg PO DAILY [facility] Last Admin: 08/30/18 09:32 Dose: 40 mg Rivaroxaban (Xarelto -) 20 mg PO DAILY@1800 [facility] Last Admin: 08/30/18 17:09 Dose: 20 mg Tamsulosin HCl (Flomax -) 0.4 mg PO DAILY@0830 [facility] Last Admin: 08/30/18 08:44 Dose: 0.4 mg Tramadol HCl (Ultram -) 50 mg PO Q8H PRN PRN Reason: PAIN LEVEL 7 - 10 Last Admin: 08/30/18 18:18 Dose: 50 mg - Objective Vital Signs: Vital Signs Temperature 97.8 F 08/31/18 06:00 Pulse Rate 74 08/31/18 06:00 Respiratory Rate 18 08/31/18 06:00 Blood Pressure 144/83 08/31/18 06:00 O2 Sat by Pulse Oximetry (%) 98 08/30/18 21:00 Constitutional: Yes: Well Nourished, No Distress, Calm Cardiovascular: Yes: Regular Rate and Rhythm Respiratory: Yes: Regular Musculoskeletal: Yes: WNL Extremities: Yes: WNL Edema: Yes Edema: LLE: Trace, RLE: Trace Peripheral Pulses WNL: Yes Neurological: Yes: Alert, Oriented Psychiatric: Yes: Alert, Oriented Labs: CBC, BMP 08/28/18 05:30 08/28/18 05:30 Problem List - Problems (1) Bronchitis Assessment/Plan: -Bronchodilators -Prednisone tapering dose upon discharge -oxygen as needed -pulmonary consult -ct lung without contrast to look at lung nodule- follow up outpatient with pulmonary -ID on board -PO ceftin 500 mg BID for 5 more days Code(s): J40 - BRONCHITIS, NOT SPECIFIED ACUTE OR CHRONIC (2) Elevated troponin Assessment/Plan: -2/2 to demand ischemia due to COPD -Cardiology on board -troponins trending down Code(s): R74.8 - ABNORMAL LEVELS OF OTHER SERUM ENZYMES (3) Acute exacerbation of chronic obstructive pulmonary disease (COPD) Assessment/Plan: -Bronchodilators -Prednisone tapering dose upon discharge -oxygen as needed -pulmonary consult -ct lung without contrast to look at lung nodule- follow up outpatient with pulmonary -ID on board -PO ceftin 500 mg BID for 5 more days Code(s): J44.1 - CHRONIC OBSTRUCTIVE PULMONARY DISEASE W (ACUTE) EXACERBATION (4) Atrial fibrillation Assessment/Plan: -On Xarelto -Cardiology consult -Rate controlled -Tele monitoring Code(s): I48.91 - UNSPECIFIED ATRIAL FIBRILLATION (5) Diabetes mellitus Assessment/Plan: -A1c at 8.2 -BGM AC HS -Diabetic low sodium diet -endocrinology consult -Insulin novolog and levemir 30 U BID -takes Basalgar 30 U in AM at home- would change to 30 U BID upon discharge Code(s): E11.9 - TYPE 2 DIABETES MELLITUS WITHOUT COMPLICATIONS Qualifiers: Diabetes mellitus type: type 2 Assessment/Plan see problem list self ambulatory D/C home
[2018-08-31] MEDS: predniSONE 20 MG TABLET (UD) PO SCH (09:01)
[2018-08-31] MEDS: FUROSEMIDE 40 MG TABLET (FP) PO SCH (09:01)
[2018-08-31] MEDS: ISOSORBIDE MONONITRATE 60 MG TAB.SR.24H (FP) PO SCH (09:01)
[2018-08-31] MEDS: GABAPENTIN 300 MG CAPSULE (FP) PO SCH (09:02)
[2018-08-31] MEDS: TAMSULOSIN HCL 0.4 MG CAP PO SCH (09:02)
[2018-08-31] MEDS: LOSARTAN POTASSIUM 50 MG TABLET (FP) PO SCH (09:02)
[2018-08-31] MEDS: DIGOXIN 0.125 MG TABLET (FP) PO SCH (09:02)
[2018-08-31 09:03] VITALS: PULSE 70
[2018-08-31] MEDS: CEFUROXIME AXETIL 500 MG TABLET PO SCH (09:03)
[2018-08-31 09:06] VITALS: BP 153/77; TEMP 98.1
[2018-08-31] MEDS: traMADol HCL 50 MG TABLET PO PRN (09:13)
== END 2018-08-31 10:53 | disposition home health service (06) | DRG 140 ==
LOC: JER 07:34 → JERBED 09:55 → J4W 17:00
PROVIDERS: ADMIT Family Medicine; ATTEND Family Medicine
DX: J44.1 Chronic obstructive pulmonary disease with (acute) exacerbation (principal); J44.0 Chronic obstructive pulmonary disease with (acute) lower respiratory infection; I24.8 Other forms of acute ischemic heart disease; I48.91 Unspecified atrial fibrillation; I11.0 Hypertensive heart disease with heart failure; I50.32 Chronic diastolic (congestive) heart failure; I48.92 Unspecified atrial flutter; E11.40 Type 2 diabetes mellitus with diabetic neuropathy, unspecified; I31.3 Pericardial effusion (noninflammatory); I27.20 Pulmonary hypertension, unspecified; L97.829 Non-pressure chronic ulcer of other part of left lower leg with unspecified severity; R04.2 Hemoptysis; E78.5 Hyperlipidemia, unspecified; J20.9 Acute bronchitis, unspecified; N40.0 Benign prostatic hyperplasia without lower urinary tract symptoms; I25.10 Atherosclerotic heart disease of native coronary artery without angina pectoris; Z79.4 Long term (current) use of insulin; Z95.5 Presence of coronary angioplasty implant and graft
CPT/HCPCS: 36415; 71046-TC-FY; 71250-TC; 80053; 80061; 80162; 81003; 81015; 82550; 82553; 82947; 82962; 83036; 83721; 83735; 83880; 84100; 84484; 85025; 85027; 87070; 87186; 87205; 93005; 93010; 93306-TC; 94640; 99282-25

== ENCOUNTER 2018-09-23 08:01 | Inpatient (IN) | payer OTHER ==
--- NOTE | 2018-09-23 08:50 | PDOC ---
History of Present Illness - General Chief Complaint: Edema Stated Complaint: Edema Time Seen by Provider: 09/23/18 08:13 History Source: Patient Exam Limitations: No Limitations - History of Present Illness Initial Comments: Sadiq is a 63 yo M with a PMH of recent MRSA and admission, COPD not on home oxygen, CAD s/p stent, diastolic CHF, Afib (s/p ablation), DM, HTN, HLD, BPH who presents to the ED with the chief complaints of chronic leg pain and edema despite wearing compression stockings as well as chest pain, productive cough with significant phlegm but no blood, and subjective fevers and night sweats. He reports that 2 nights ago he woke up and his sheets were full of sweat so he needed to change them. He also endorses significant SOB and difficulty breathing. He denies any current chest pain. PMD: Dr. Hardy + [employer] Consultant: Dr. Lund Social hx: former 30 pack year smoker. Stopped smoking 1 year ago when diagnosed with COPD Allergies: NKA, NKDA Past History - Past Medical History Allergies/Adverse Reactions: Allergies Allergy/AdvReac Type Severity Reaction Status Date / Time No Known Allergies Allergy Verified 09/23/18 08:15 Home Medications: Ambulatory Orders Aspirin [ASA -] 81 mg PO DAILY #0 tab 07/11/17 Glimepiride [Amaryl -] 4 mg PO DAILY@0700 #0 tab 07/11/17 Simvastatin [Zocor -] 20 mg PO DAILY #0 tab 07/11/17 Gabapentin 300 mg PO DAILY 10/26/17 Metoprolol Succinate [Toprol XL -] 100 mg PO DAILY 10/26/17 Rivaroxaban [Xarelto -] 20 mg PO DAILY 10/26/17 Tamsulosin HCl [Flomax -] 0.4 mg PO DAILY 10/26/17 Ipratropium 0.02% Nebulizer [Atrovent 0.02% Nebulizer -] 1 amp NEB RQID #120 amp 11/02/17 Isosorbide Mononitrate [Imdur -] 60 mg PO DAILY #30 tab.sr.24h 11/02/17 Digoxin [Lanoxin -] 0.125 mg PO DAILY #30 tablet MDD 1 05/09/18 Potassium Chloride [K-Dur -] 20 meq PO DAILY #20 tablet.er MDD 1 05/09/18 traMADol HCL [Ultram -] 50 mg PO Q6H PRN #10 tablet MDD 4 05/09/18 Sacubitril/Valsartan [Entresto 49 mg-51 mg Tablet] 1 tab PO DAILY 08/27/18 Furosemide [Lasix] 40 mg PO DAILY #30 tab 08/30/18 Insulin Glargine,Hum.rec.anlog [Basaglar Kwikpen U-100] 30 unit SQ BID #1 ea 07/09 Anemia: No Asthma: No Cancer: No Cardiac Disorders: Yes (A-fib) CVA: No COPD: Yes CHF: Yes Dementia: No Diabetes: Yes (niddm) GI Disorders: No Disorders: Yes (ENLARGE PROSTATE) HTN: Yes Hypercholesterolemia: Yes Liver Disease: Yes (CHI JOHN SYNDROME) Seizures: No Thyroid Disease: No - Surgical History Abdominal Surgery: Yes (Hernia repair x2) Appendectomy: No Cardiac Surgery: Yes (,ABLATION FOR AFIB ON 07/05/18) Cholecystectomy: Yes Lung Surgery: No Neurologic Surgery: No Orthopedic Surgery: No - Immunization History Immunization Up to Date: Yes - Suicide/Smoking/Psychosocial Hx Smoking History: Never smoked Have you smoked in the past 12 months: No Number of Cigarettes Smoked Daily: 4 If you are a former smoker, when did you quit?: 2017 'Breaking Loose' booklet given: 10/26/17 Hx Alcohol Use: No Drug/Substance Use Hx: No Substance Use Type: None Hx Substance Use Treatment: No Review of Systems - Review of Systems Able to Perform ROS?: Yes Comments:: CONSTITUTIONAL: Present: Fever, chills, diaphoresis Absent: generalized weakness, malaise, loss of appetite HEENT: Absent: rhinorrhea, nasal congestion, throat pain, throat swelling, difficulty swallowing, mouth swelling, ear pain, eye pain, visual Changes CARDIOVASCULAR: Present: irregular HR, peripheral edema Absent: chest pain, syncope, palpitations, lightheadedness RESPIRATORY: Present: Cough, SOB Absent: dyspnea with exertion, orthopnea, wheezing, stridor, hemoptysis GASTROINTESTINAL: Absent: abdominal pain, abdominal distension, nausea, vomiting, diarrhea, constipation, melena, hematochezia GENITOURINARY: Absent: dysuria, frequency, urgency, hesitancy, hematuria, flank pain, genital pain MUSCULOSKELETAL: Present: Myalgia Absent: arthralgia, joint swelling SKIN: Present: Rash Absent: itching, pallor HEMATOLOGIC/IMMUNOLOGIC: Absent: easy bleeding, easy bruising, lymphadenopathy, frequent infections ENDOCRINE: Absent: unexplained weight gain, unexplained weight loss, heat intolerance, cold intolerance NEUROLOGIC: Present: unsteady gait Absent: headache, focal weakness or paresthesias, dizziness, seizure, mental status changes, bladder or bowel incontinence PSYCHIATRIC: Absent: anxiety, depression, suicidal or homicidal ideation, hallucinations. *Physical Exam - Vital Signs Last Vital Signs Temp Pulse Resp BP Pulse Ox 100 F H 96 H 18 156/79 96 09/23/18 08:11 09/23/18 08:11 09/23/18 08:11 09/23/18 08:11 09/23/18 08:11 - Physical Exam Comments: Rectal Temp measured at bedside: 101.6 GENERAL: Well developed, well nourished. Awake and alert. No acute distress. HEENT: Normocephalic, atraumatic. PERRLA, EOMI. No conjunctival pallor. Sclera are non- icteric. dry mucous membranes. Oropharynx is clear. NECK: Supple. Full ROM. No JVD. Carotid pulses 2+ and symmetric, without bruits. No lymphadenopathy. CARDIOVASCULAR: Regular rate of 96 and regular rhythm. No murmurs, rubs, or gallops. Distal pulses are faint, 1+ and symmetric. PULMONARY: bilateral crackles at the bases. No rales or rhonchi. ABDOMINAL: Soft. Non-tender. Non-distended. No rebound or guarding. No organomegaly. Normoactive bowel sounds. MUSCULOSKELETAL Normal range of motion at all joints. No bony deformities or tenderness. No CVA tenderness. EXTREMITIES: No cyanosis. No clubbing. minimal bilateral edema. No calf tenderness. SKIN: Bilateral venous stasis ulcers. [place]a on r leg. Warm and dry. Normal capillary refill. No jaundice. NEUROLOGICAL: Alert, awake, appropriate. Cranial nerves 2-12 intact. No deficits to light touch in face, upper extremities and lower extremities. No motor deficits in the in face, upper extremities and lower extremities. Normal speech. Gait is wobbly. PSYCHIATRIC: Cooperative. Good eye contact. Appropriate mood and affect. Moderate Sedation - Procedure Monitoring Vital Signs: Procedure Monitoring Vital Signs Temperature 100 F H 09/23/18 08:11 Pulse Rate 96 H 09/23/18 08:11 Respiratory Rate 18 09/23/18 08:11 Blood Pressure 156/79 09/23/18 08:11 O2 Sat by Pulse Oximetry (%) 96 09/23/18 08:11 ED Treatment Course - LABORATORY CBC & Chemistry Diagram: 09/23/18 09:15 09/23/18 09:15 Medical Decision Making - Medical Decision Making Sadiq is a 63 yo M with a PMH of recent MRSA and admission, COPD not on home oxygen, CAD s/p stent, diastolic CHF, Afib (s/p ablation) + Aflutter on xorelto , DM, HTN, HLD, BPH who presents to the ED with the chief complaints of chronic leg pain and edema despite wearing compression stockings as well as chest pain, productive cough with significant phlegm but no blood, and subjective fevers and night sweats. He reports that 2 nights ago he woke up and his sheets were full of sweat so he needed to change them. He also endorses significant SOB and difficulty breathing. Patient meets SIRS criteria with a HR of 96 and a rectal temp of 101.6 with a likely source in the lungs. DD includes but not limited to: Sepsis, PNA, Copd exacerbation, influenza, DVT, PE, ACS, MRSA. Plan: Ed adult spesis workup, labs, cultures, Duplex, cxr, ABX, duoneb, re- assess, probable admit. Trop and BNP both elevated. Likely demand ischemia given chronic trop elevation. Bright has a clinical HCAP PNA so were starting broad spectrum Abx. Spoke with Dr. May and will admit patient to hospital for PNA. - Consults placed to Dr. Lund, Marcel, and Racquel. *DC/Admit/Observation/Transfer Diagnosis at time of Disposition: CHF (congestive heart failure), COPD (chronic obstructive pulmonary disease), Pneumonia, Elevated troponin, Sepsis - Referrals - Patient Instructions - Post Discharge Activity
[2018-09-23] MEDS ORDERED: ACETAMINOPHEN 325 MG TABLET (FP) PO ONE (09:04)
[2018-09-23] MEDS ORDERED: ACETAMINOPHEN 325 MG TABLET (FP) ONE (09:06)
[2018-09-23] MEDS ORDERED: SODIUM CHLORIDE 0.9% 1000 ML INFUS.BAG IV ONE (09:07)
[2018-09-23] MEDS ORDERED: ALBUTEROL SO4 2.5/IPRATROPIUM 0.5 INH SOL 3 ML VIAL.NEB. NEB ONE ×3 (09:07→10:26)
[2018-09-23] MEDS ORDERED: VANCOMYCIN 1,000 MG in DEXTROSE 5%-WATER - 250 ML IVPB ONE (09:12)
[2018-09-23] MEDS ORDERED: PIPERACILLIN/TAZOB 3.375 GM 3.375 GM in DEXTROSE 5%-WATER - 50 ML IVPB ONE (09:12)
[2018-09-23 09:40] LABS: BASO % 0.7 % (0-2.0); EOS % 2.1 % (0-4.5); HEMATOCRIT 32.5 % (35.4-49); HEMOGLOBIN 11.1 GM/dL (11.7-16.9); LYMPH % 15.4 % (8-40); MCH 27.1 pg (25.7-33.7); MCHC 34.2 g/dl (32.0-35.9); MEAN CELL VOLUME 79.2 fl (80-96); MEAN PLT VOLUME 9.4 fl (7.5-11.1); NEUT % 70.8 % (42.8-82.8); PLATELET COUNT 322 K/MM3 (134-434); RDW 15.7 % (11.9-15.9); WHITE BLOOD COUNT 7.5 K/mm3 (4.0-10.0)
[2018-09-23 09:46] LABS: INR 2.14 (0.83-1.09); PROTHROMBIN TIME (PATIENT) 25.4 SEC (9.7-13.0)
[2018-09-23 09:49] LABS: ACTIVATED PTT 31.2 SECONDS (25.2-36.5)
[2018-09-23] MEDS ORDERED: VANCOMYCIN 1 GRAM (PRE-DOCKED) 1,000 MG/250 ML BAG IVPB ONE (09:50)
[2018-09-23 09:53] LABS: URINE APPEARANCE CLEAR; URINE BILIRUBIN NEGATIVE (<2.0 mg/dL); URINE COLOR YELLOW; URINE GLUCOSE (UA) 1+ (NEGATIVE); URINE KETONE NEGATIVE (NEGATIVE); URINE LEUK ESTERASE NEGATIVE (NEGATIVE); URINE NITRITE NEGATIVE (NEGATIVE); URINE PROTEIN 2+ (NEGATIVE); URINE UROBILINOGEN NEGATIVE mg/dL (0.2-1.0)
[2018-09-23 09:55] LABS: URINE HYALINE CAST 4 /lpf; URINE MUCUS RARE
[2018-09-23 10:06] LABS: ALBUMIN 2.3 g/dl (3.4-5.0); ALK PHOS 135 U/L (45-117); ANION GAP 5 MMOL/L (8-16); BILIRUBIN,TOTAL 2.7 mg/dL (0.2-1); BLOOD UREA NITROGEN 24 mg/dL (7-18); CHLORIDE 106 mmol/L (98-107); CO2 30 mmol/L (21-32); CREATININE 1.2 mg/dL (0.55-1.3); GLUCOSE,RANDOM 118 mg/dL (74-106); POTASSIUM 4.5 mmol/L (3.5-5.1); SGOT/AST 22 U/L (15-37); SGPT/ALT 39 U/L (13-61); SODIUM 140 mmol/L (136-145); TOT PROT 5.6 g/dl (6.4-8.2)
[2018-09-23 10:14] LABS: N-TERMINAL BNP 10011.6 pg/ml (5-125)
[2018-09-23] MEDS ORDERED: PIPERACILLIN/TAZOB 3.375 GM 3.375 GM/50 ML BAG IVPB ONE (10:27)
--- NOTE | 2018-09-23 12:24 | PDOC ---
Attending Attestation - HPI HPI: 09/23/18 12:24 CC: chest pain, productive cough, subjective fever, chills, and chronic lower extremity pain. HPI: The patient is a 63 year old male, with a significant past medical history of recent MRSA and admission, COPD not on home oxygen, CAD s/p stent, diastolic CHF , Afib (s/p ablation), DM, HTN, HLD, BPH, who presents to the emergency department with, chest pain, productive cough, subjective fever, chills, and chronic lower extremity pain. He denies any recent fevers, chills, headache or dizziness. He denies any recent nausea, vomit, diarrhea or constipation. He denies any recent chest pain or shortness of breath. He denies any recent dysuria, frequency, urgency or hematuria. Allergies: NKA Past surgical history: None reported. Primary Care Physician: Dr. Amaya Merchandise Deliverer: Dr. Lund - Physicial Exam PE: 09/23/18 12:26 Exam: Vitals: Triage Vital signs reviewed General Appearance: no acute distress, well nourished well developed, Head: Atraumatic, normocephalic Neck: Supple;No Nuchal rigidity Chest Wall: Nontender Cardiac: Regular rate and rhythm, no murmurs, no rubs, no gallops, Lungs: Bilateral crackles. Abdomen: Soft, nondistended, normal bowel sounds, nontender to palpation Rectal: Exam deferred Neuro: AOX3; Cranial Nerves 2-12 grossly intact, Strength intact to all extremities, Sensation intact to all extremities Psych: normal mood, normal affect <Phil Bonilla - Last Filed: 09/23/18 12:24> - Resident Resident Name: Allan Trinidad - ED Attending Attestation I have performed the following: I have examined & evaluated the patient, The case was reviewed & discussed with the resident, I agree w/resident's findings & plan, Exceptions are as noted - Medical Decision Making 09/23/18 12:38 Examination consistent with CHF exacerbation complicated by clinical pneumonia Given fever tachycardia and recent admission to hospital sepsis protocol initiated patient covered with broad-spectrum antibiotics as well as diuretics Labs notable for elevated troponin and significant for elevated BNP most likely demand ischemia however patient will require trending of his troponins cardiology consultation Full dose aspirin ordered Lasix ordered. We'll admit to hospital for further management. 09/23/18 12:41 <Kj Lakhani - Last Filed: 09/23/18 12:42> Heart Score/ECG Review - ECG Impressions Comment:: 09/23/18 12:39 EKG performed at 9:10 AM demonstrates normal sinus rhythm T-wave inversions laterally no ST elevations. <Kj Lakhani - Last Filed: 09/23/18 12:42> Attestations - Attestations 09/23/18 12:26 Documentation prepared by Phil Bonilla, acting as medical doctor for Kj Lakhani MD. <Phil Bonilla - Last Filed: 09/23/18 12:24>
[2018-09-23] MEDS ORDERED: FUROSEMIDE 40 MG/4 ML INJECTABLE VIAL IVPUSH ONE (12:40)
[2018-09-23] MEDS ORDERED: ASPIRIN 325 MG TABLET PO ONE (12:49)
--- NOTE | 2018-09-23 13:29 | CON.CARD ---
Consult Consult Specialty:: cardiology Referred by:: Jose Luis Reason for Consultation:: Leg edema and URI symptoms - History of Present Illness Chief Complaint: Leg edema and shortness of breath History of Present Illness: The patient is a 63-year-old man, we have a history of diabetes, hypertension, hyperlipidemia, coronary artery disease and myocardial infarction, prior stents , status post atrial fibrillation ablation 10/04/2017, atrial flutter, COPD, systolic heart failure, chronic leg edema, now presenting with URI symptoms, fevers, leg edema and shortness of breath. No chest pains. The patient seems to be quite comfortable. His breathing improved. - History Source History Provided By: Patient, Medical Record Limitations to Obtaining History: No Limitations - Past Medical History Cardio/Vascular: Yes: AFIB, CAD, CHF, HTN, Hyperlipdemia, [place] Pulmonary: Yes: COPD, Other (pleural effusion). No: O2 Dependent Infectious Disease: Yes: MRSA. 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 History of Recent Travel: No Home Medications - Allergies Allergies/Adverse Reactions: Allergies Allergy/AdvReac Type Severity Reaction Status Date / Time No Known Allergies Allergy Verified 09/23/18 08:15 - Home Medications Home Medications: Ambulatory Orders Aspirin [ASA -] 81 mg PO DAILY #0 tab 07/11/17 Glimepiride [Amaryl -] 4 mg PO DAILY@0700 #0 tab 07/11/17 Simvastatin [Zocor -] 20 mg PO DAILY #0 tab 07/11/17 Gabapentin 300 mg PO DAILY 10/26/17 Metoprolol Succinate [Toprol XL -] 100 mg PO DAILY 10/26/17 Rivaroxaban [Xarelto -] 20 mg PO DAILY 10/26/17 Tamsulosin HCl [Flomax -] 0.4 mg PO DAILY 10/26/17 Ipratropium 0.02% Nebulizer [Atrovent 0.02% Nebulizer -] 1 amp NEB RQID #120 amp 11/02/17 Isosorbide Mononitrate [Imdur -] 60 mg PO DAILY #30 tab.sr.24h 11/02/17 Digoxin [Lanoxin -] 0.125 mg PO DAILY #30 tablet MDD 1 05/09/18 Potassium Chloride [K-Dur -] 20 meq PO DAILY #20 tablet.er MDD 1 05/09/18 traMADol HCL [Ultram -] 50 mg PO Q6H PRN #10 tablet MDD 4 05/09/18 Sacubitril/Valsartan [Entresto 49 mg-51 mg Tablet] 1 tab PO DAILY 08/27/18 Furosemide [Lasix] 40 mg PO DAILY #30 tab 08/30/18 Insulin Glargine,Hum.rec.anlog [Basaglar Kwikpen U-100] 30 unit SQ BID #1 ea 07/09 Family Disease History - Family Disease History Family Disease History: Other: Father (dialysis) Review of Systems - Review of Systems Constitutional: reports: Fever, Malaise, Night Sweats Eyes: reports: No Symptoms HENT: reports: No Symptoms Neck: reports: No Symptoms Cardiovascular: reports: Edema, Shortness of Breath Respiratory: reports: Cough, SOB Gastrointestinal: reports: No Symptoms Genitourinary: reports: No Symptoms Breasts: reports: No Symptoms Reported Musculoskeletal: reports: No Symptoms Integumentary: reports: No Symptoms Neurological: reports: No Symptoms Endocrine: reports: No Symptoms Hematology/Lymphatic: reports: No Symptoms Psychiatric: reports: No Symptoms Vital Signs: Vital Signs Temperature 101.6 F H 09/23/18 09:02 Pulse Rate 96 H 09/23/18 09:02 Respiratory Rate 20 09/23/18 09:02 Blood Pressure 156/79 09/23/18 08:11 O2 Sat by Pulse Oximetry (%) 99 09/23/18 09:02 Constitutional: Yes: Well Nourished, No Distress, Calm Eyes: Yes: WNL, Conjunctiva Clear, EOM Intact HENT: Yes: WNL, Atraumatic, Normocephalic Neck: Yes: WNL, Supple, Trachea Midline Respiratory: Yes: Cough, Rhonchi, SOB Gastrointestinal: Yes: WNL, Normal Bowel Sounds, Soft Renal/: Yes: WNL Cardiovascular: Yes: WNL, Regular Rate and Rhythm JVD: No Carotid Bruit: No PMI: Non-Displaced Heart Sounds: Yes: S1, S2 Murmur: Yes: Systolic Murmur, Grade 2 Musculoskeletal: Yes: WNL Edema: LLE: Trace, RLE: Trace Peripheral Pulses: 1+ Left Carotid, 1+ Right Carotid, 1+ Left Femoral, 1+ Right Femoral, 1+ Left Popliteal, 1+ Right Popliteal, 1+ Left Doralis Pedis, 1+ Right Dorsalis Pedis Neurological: Yes: WNL, Alert, Oriented ...Motor Strength: WNL Psychiatric: Yes: WNL - Other Data Labs, Other Data: CBC, BMP 09/23/18 09:15 09/23/18 09:15 INR, PTT INR 2.14 (0.83-1.09) H 09/23/18 09:15 Troponin, BNP 09/23/18 09:15 Troponin I 0.56 H B-Natriuretic Peptide 71236.6 H Troponin, BNP 09/23/18 09:15 Troponin I 0.56 H B-Natriuretic Peptide 80761.6 H Assessment/Plan The patient is a 63-year-old man, we have a history of diabetes, hypertension, hyperlipidemia, coronary artery disease and myocardial infarction, prior stents , status post atrial fibrillation ablation 10/04/2017, atrial flutter, COPD, systolic heart failure, chronic leg edema, now presenting with URI symptoms, fevers, leg edema and shortness of breath. No chest pains. The patient seems to be quite comfortable. His breathing improved. Mild acute on chronic systolic heart failure. Elevated troponins. No chest pains. ECG is not available at this point. Start Lasix 40 mg IV twice daily. Continue home medications. Aggressive respiratory toilet. Cardiac monitoring. No need for further cardiac testing at this point. We'll follow with you.
[2018-09-23] MEDS ORDERED: FUROSEMIDE 40 MG/4 ML INJECTABLE VIAL ONE (13:38)
[2018-09-23] MEDS ORDERED: ASPIRIN 81 MG CHEWABLE TABLETS ONE (13:44)
--- NOTE | 2018-09-23 14:19 | PN ---
Progress Note (short form) - Note Progress Note: ID Consult dictated CHf ? pneumonia LE Cellulitis Fever lung v. skin source Hx + wound c/s MRSA Pending c/s empiric ceftriaxone/ vancomycin
--- NOTE | 2018-09-23 14:58 | HP ---
Admitting History and Physical - Primary Care Physician PCP: Aisha Amaya - Admission Chief Complaint: DYSPNEA/ACUTE ON CHRONIC CHF History of Present Illness: HISTORY OF AFIB, HTN, CHF, PVD,PAD, DM HERE WITH PROGRESSIVELY WORSENING OF SOB WITH COUGH, FEVER AND HEADACHE FOR 2 DAYS. History Source: Patient - Past Medical History Cardiovascular: Yes: AFIB, CAD, CHF, HTN, Hyperlipdemia, CT Pulmonary: Yes: COPD, Other (pleural effusion). No: O2 Dependent Heme/Onc: Yes: Anemia Infectious Disease: Yes: MRSA. 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 of Recent Travel: No Home Medications - Allergies Allergies/Adverse Reactions: Allergies Allergy/AdvReac Type Severity Reaction Status Date / Time No Known Allergies Allergy Verified 09/23/18 08:15 - Home Medications Home Medications: Ambulatory Orders Aspirin [ASA -] 81 mg PO DAILY #0 tab 07/11/17 Glimepiride [Amaryl -] 4 mg PO DAILY@0700 #0 tab 07/11/17 Simvastatin [Zocor -] 20 mg PO DAILY #0 tab 07/11/17 Gabapentin 300 mg PO DAILY 10/26/17 Metoprolol Succinate [Toprol XL -] 100 mg PO DAILY 10/26/17 Rivaroxaban [Xarelto -] 20 mg PO DAILY 10/26/17 Tamsulosin HCl [Flomax -] 0.4 mg PO DAILY 10/26/17 Ipratropium 0.02% Nebulizer [Atrovent 0.02% Nebulizer -] 1 amp NEB RQID #120 amp 11/02/17 Isosorbide Mononitrate [Imdur -] 60 mg PO DAILY #30 tab.sr.24h 11/02/17 Digoxin [Lanoxin -] 0.125 mg PO DAILY #30 tablet MDD 1 05/09/18 Potassium Chloride [K-Dur -] 20 meq PO DAILY #20 tablet.er MDD 1 05/09/18 traMADol HCL [Ultram -] 50 mg PO Q6H PRN #10 tablet MDD 4 05/09/18 Sacubitril/Valsartan [Entresto 49 mg-51 mg Tablet] 1 tab PO DAILY 08/27/18 Furosemide [Lasix] 40 mg PO DAILY #30 tab 08/30/18 Insulin Glargine,Hum.rec.anlog [Basaglar Kwikpen U-100] 30 unit SQ BID #1 ea 07/09 Family Disease History - Family Disease History Family Disease History: Other: Father (dialysis) Review of Systems - Review of Systems Constitutional: reports: Weakness Eyes: reports: No Symptoms HENT: reports: No Symptoms Neck: reports: No Symptoms Cardiovascular: reports: Shortness of Breath Respiratory: reports: Cough, Orthopnea, SOB, SOB on Exertion, Wheezing Gastrointestinal: reports: No Symptoms Genitourinary: reports: No Symptoms Musculoskeletal: reports: Joint Pain, Muscle Pain Integumentary: reports: No Symptoms Neurological: reports: No Symptoms Endocrine: reports: No Symptoms Hematology/Lymphatic: reports: No Symptoms, Other Psychiatric: reports: No Symptoms Physical Examination Vital Signs: Vital Signs Temperature 101.6 F H 09/23/18 09:02 Pulse Rate 96 H 09/23/18 09:02 Respiratory Rate 20 09/23/18 09:02 Blood Pressure 156/79 09/23/18 08:11 O2 Sat by Pulse Oximetry (%) 99 09/23/18 09:02 Constitutional: Yes: Mild Distress Eyes: Yes: WNL HENT: Yes: Hoarseness, Nasal Congestion Neck: Yes: WNL Cardiovascular: Yes: Regular Rate and Rhythm Respiratory: Yes: Cough, On Nasal O2, Rhonchi, SOB Gastrointestinal: Yes: WNL Renal/: Yes: WNL Musculoskeletal: Yes: WNL Extremities: Yes: WNL Edema: Yes Edema: LLE: 1+, RLE: 1+ Peripheral Pulses WNL: Yes Integumentary: Yes: WNL Wound/Incision: Yes: Clean/Dry Neurological: Yes: WNL ...Motor Strength: WNL Psychiatric: Yes: WNL Labs: CBC, BMP 09/23/18 09:15 09/23/18 09:15 Problem List - Problems (1) CHF (congestive heart failure) Code(s): I50.9 - HEART FAILURE, UNSPECIFIED (2) COPD (chronic obstructive pulmonary disease) Code(s): J44.9 - CHRONIC OBSTRUCTIVE PULMONARY DISEASE, UNSPECIFIED (3) Elevated troponin Code(s): R74.8 - ABNORMAL LEVELS OF OTHER SERUM ENZYMES (4) Pneumonia Code(s): J18.9 - PNEUMONIA, UNSPECIFIED ORGANISM Qualifiers: (5) Sepsis Code(s): A41.9 - SEPSIS, UNSPECIFIED ORGANISM (6) Acute exacerbation of chronic obstructive pulmonary disease (COPD) Code(s): J44.1 - CHRONIC OBSTRUCTIVE PULMONARY DISEASE W (ACUTE) EXACERBATION (7) Acute on chronic systolic heart failure Code(s): I50.23 - ACUTE ON CHRONIC SYSTOLIC (CONGESTIVE) HEART FAILURE (8) Atrial fibrillation Code(s): I48.91 - UNSPECIFIED ATRIAL FIBRILLATION (9) CAD S/P percutaneous coronary angioplasty Code(s): I25.10 - ATHSCL HEART DISEASE OF [place] CORONARY ARTERY W/O ANG PCTRS; Z98.61 - CORONARY ANGIOPLASTY STATUS (10) Cough Code(s): R05 - COUGH (11) Diabetes mellitus Code(s): E11.9 - TYPE 2 DIABETES MELLITUS WITHOUT COMPLICATIONS Qualifiers: Diabetes mellitus type: type 2 (12) Dyspnea Code(s): R06.00 - DYSPNEA, UNSPECIFIED (13) Peripheral vascular disease of lower extremity with ulceration Code(s): I73.9 - PERIPHERAL VASCULAR DISEASE, UNSPECIFIED; L97.909 - NON-PRS CHRONIC ULC UNSP PRT OF UNSP LOW LEG W UNSP SEVERITY (14) Type 2 diabetes mellitus with diabetic polyneuropathy Code(s): E11.42 - TYPE 2 DIABETES MELLITUS WITH DIABETIC POLYNEUROPATHY Assessment/Plan IV ABX PER ID NEBS STEROIDS MONITOR BGM SWAB FOR FLU 02 SUPPORT CARDIO/PULM EVAL TELEMETRY BGM/CHECK
[2018-09-23] MEDS ORDERED: ACETAMINOPHEN 325 MG TABLET (FP) PO PRN (15:00)
--- NOTE | 2018-09-23 16:27 | CONS ---
DATE OF CONSULTATION: 09/23/2018 The patient is a 63-year-old diabetic male evaluated for fever. He was recently hospitalized at [facility] from August 27 through August 31 for COPD exacerbation and congestive heart failure. He now returns with increasing lower extremity pain, shortness of breath, cough, and chest discomfort. He also reports subjective fever and night sweats. In the emergency room, temperature was 101.6 and patient was tachycardic. Chest x-ray shows congestive heart failure. Patient reports occasional cough productive of whitish sputum. He denies any hemoptysis. He denies any ill contacts. He was recently hospitalized as noted. He is a nonsmoker. Of note, the patient reports increasing bilateral lower extremity pain and swelling, as well as increased edema. He denies any traumatic injury. Wound cultures in the past have been positive for mixed organisms including MRSA. PAST MEDICAL HISTORY: Positive for coronary artery disease, status post stent, COPD, congestive heart failure, atrial fibrillation, diabetes mellitus, hypertension, hyperlipidemia, BPH. No known allergies. Medications include aspirin, Amaryl, Zocor, gabapentin, Toprol, Xarelto, Flomax, Imdur, Lanoxin, Lasix. SOCIAL HISTORY: Nonsmoker. LABORATORY DATA: White count 7.5, hematocrit 32.5, platelet count 322, BUN 24, creatinine 1.2. Urinalysis: Less than 1 white cell. Flu swab negative. Total bilirubin 2.7, alkaline phosphatase 135, AST 22. Blood and urine cultures pending. Chest x-ray shows increased markings bilaterally. PHYSICAL EXAMINATION: General: He is slightly short of breath at rest. Vital Signs: Temperature 101.6. Blood pressure 156/79. Pulse 96, regular. Respirations 20 per minute. Eyes: Sclerae anicteric. Heart Sounds: S1, S2. Lungs: A few crepitations at the bases bilaterally. Abdomen: Soft. No tenderness elicited. Extremities: Bilateral lower extremity edema 2+, with confluent erythema and warmth, both lower extremities. Superficial ulcers, without purulent drainage. IMPRESSION: 1. Congestive heart failure, possible superimposed pneumonia. 2. Bilateral lower extremity cellulitis. 3. Fever, lung versus skin source. 4. History of positive wound culture, methicillin-resistant Staphylococcus aureus. Await culture results. Obtain urine Legionella and pneumococcal antigen, sputum culture. Empiric antibiotic coverage with ceftriaxone and vancomycin. Cardiology followup. Will follow. Thank you for the kind referral. JOLENE THOMAS M.D. [id number]
[2018-09-23] MEDS: CEFTRIAXONE 2 GM in DEXTROSE 5%-WATER 100 ML IVPB SCH (16:39)
--- NOTE | 2018-09-23 17:10 | EKG ---
Test Reason : Blood Pressure : / mmHG Vent. Rate : 078 BPM Atrial Rate : 078 BPM P-R Int : 184 ms QRS Dur : 084 ms QT Int : 378 ms P-R-T Axes : 082 057 111 degrees QTc Int : 430 ms NORMAL SINUS RHYTHM NONSPECIFIC T WAVE ABNORMALITY ABNORMAL ECG WHEN COMPARED WITH ECG OF 27-AUG-2018 08:42, T WAVE VARIATION Confirmed by DO LILLY MD ([id number]) on 09/23/2018 5:10:15 PM Referred By: Confirmed By:DO LILLY MD
[2018-09-23] MEDS: INSULIN SLIDING SCALE (NOVOLOG) 1 VIAL SQ SCH ×2 (17:37→22:00)
[2018-09-23] MEDS ORDERED: RIVAROXABAN 15 MG TABLET PO SCH (18:00)
--- NOTE | 2018-09-23 19:02 | PN ---
Progress Note (short form) - Note Progress Note: PULMONARY CONSULTATION DICTATED 09/23/18 IMP DYSPNEA ACUTE ON CHRONIC CHF BILATERAL LOWER EXT CELLULITIS COPD COUGH,CONGESTION R/O PNEUMONIA ASHD S/P [place],S/P STENT AFIB S/P ABLATION DM HLD + TROPONIN PLAN IV LASIX INHALED BRONCHODILATORS ABX PER ID CULTURES TREND TROPONIN DAILY WT FLU SCREEN F/U CHEST X-RAYS DR GOMEZ Problem List - Problems (1) Troponin I above reference range Code(s): R74.8 - ABNORMAL LEVELS OF OTHER SERUM ENZYMES (2) CHF (congestive heart failure) Code(s): I50.9 - HEART FAILURE, UNSPECIFIED (3) COPD (chronic obstructive pulmonary disease) Code(s): J44.9 - CHRONIC OBSTRUCTIVE PULMONARY DISEASE, UNSPECIFIED (4) Elevated troponin Code(s): R74.8 - ABNORMAL LEVELS OF OTHER SERUM ENZYMES (5) Pneumonia Code(s): J18.9 - PNEUMONIA, UNSPECIFIED ORGANISM Qualifiers: (6) Acute on chronic systolic heart failure Code(s): I50.23 - ACUTE ON CHRONIC SYSTOLIC (CONGESTIVE) HEART FAILURE (7) Atrial fibrillation Code(s): I48.91 - UNSPECIFIED ATRIAL FIBRILLATION (8) CAD S/P percutaneous coronary angioplasty Code(s): I25.10 - ATHSCL HEART DISEASE OF [place] CORONARY ARTERY W/O ANG PCTRS; Z98.61 - CORONARY ANGIOPLASTY STATUS (9) Cellulitis Code(s): L03.90 - CELLULITIS, UNSPECIFIED (10) Cough Code(s): R05 - COUGH (11) Diabetes mellitus Code(s): E11.9 - TYPE 2 DIABETES MELLITUS WITHOUT COMPLICATIONS Qualifiers: Diabetes mellitus type: type 2 (12) H/O heart artery stent Code(s): Z95.5 - PRESENCE OF CORONARY ANGIOPLASTY IMPLANT AND GRAFT (13) Hematuria Code(s): R31.9 - HEMATURIA, UNSPECIFIED Qualifiers: Hematuria type: unspecified type Qualified Code(s): R31.9 - Hematuria, unspecified
--- NOTE | 2018-09-23 20:48 | CONS ---
DATE OF CONSULTATION: 09/23/2018 REFERRING PHYSICIAN: Aisha Amaya MD The patient is a 63-year-old male known to me from previous hospitalizations as well as office followup with a past medical history of COPD, ASHD status post stents, diastolic congestive heart failure, atrial fibrillation status post ablation and maintained on Coumadin, diabetes, hypertension, hyperlipidemia, BPH, admitted to [facility] with complaints of increasing lower extremity edema, chronic leg pain, as well as cough, shortness of breath, and sputum production. The patient also states that he has had subjective fevers and night sweats for the past couple of days. He states that he woke up 2 nights ago and the sheets were full of sweat. He denies any nausea, vomiting, or diaphoresis. He states that for the past couple of days, since Sunday, prior to this admission he started developing increasing edema and redness to both lower extremities. He also noted dyspnea on exertion and productive cough. He presented to the emergency room with the above. In the ER, he had a chest x-ray performed, which revealed increasing pulmonary vascular congestion. He was also noted to have fever of 101.6. He was evaluated by Infectious Disease, Dr. Rod, and placed on ceftriaxone and vancomycin to cover possible pneumonia versus cellulitis of the lower extremities. There is no history of recent trauma. He denies any history of occupational exposure to chemicals or fumes. The patient has a history of smoking one pack per day for many years, quit approximately a year ago. While in the emergency room, he was also evaluated by Cardiology. It was noted that the patient had mild [id number] systolic CHF with elevated troponins. PAST MEDICAL HISTORY: Again includes COPD, ASHD status post stents, atrial fibrillation status post ablation, history of MRSA, pleural effusions, congestive heart failure, hypertension, hyperlipidemia, history of VA as well as diabetes. PAST SURGICAL HISTORY: Includes cholecystectomy and hernia repair x2. REVIEW OF SYSTEMS: Positive for shortness of breath, positive cough, positive chest congestion, positive fever, positive chills. No nausea, no vomiting, no abdominal pain. positive lower extremity edema. Positive leg pain. CURRENT MEDICATIONS: Include Tylenol, Flomax, Entresto, ceftriaxone, vancomycin , Xarelto, Neurontin, DuoNeb, Toprol, Lanoxin, Lipitor, NovoLog, Levemir, Lasix IV 40 mg, Imdur, Ecotrin, Ultram, and Amaryl. PHYSICAL EXAMINATION: General: The patient is a well-developed, thin, white male, awake and alert, in no acute distress. Vital Signs: Temperature max is 101.6, currently 97.5, O2 saturation is 98% on room air, respiratory rate is 20, blood pressure is 160/82. HEENT: Normocephalic, atraumatic. Neck: Supple. Heart: Irregularly irregular. S1, S2. Chest: Bibasilar crackles. Abdomen: Soft. Bowel sounds are positive. Extremities: Bilateral lower extremity edema with erythema bilaterally. LABORATORY: BUN 24, creatinine 1.2, BNP is 10,011. Troponin is 0.56. WBC is 7.5, hemoglobin 11.1, hematocrit 32.5, platelet count of 222,000. UA has 2+ protein , 1+ glucose, 1+ heme. There is 1 WBC and 15 RBCs. INR is 2.14. Vascular Studies no evidence of DVT IMPRESSION: 1. Cough, chest congestion, likely multiple factors. likely [id number] congestive heart failure. 2. Possible pneumonia/bronchitis 3. Chronic obstructive pulmonary disease. 4. Atherosclerotic heart disease, status post stents, status post myocardial infarction. 5. Bilateral lower extremity cellulitis. 6. Diabetes. 7. Positive troponins. PLAN: Inhaled bronchodilators, supplemental O2, IV Lasix, daily weights. Broad-spectrum antibiotics as per Infectious Disease. Obtain cultures, obtain follow up chest x-rays, monitor electrolytes. Trend troponins. Sputum for culture and sensitivity. KISHAN GOMEZ M.D. [id number] MTDD
[2018-09-23] MEDS: SACUBITRIL/VALSARTAN 49 MG-51 MG TABLET PO SCH (21:56)
[2018-09-23] MEDS: VANCOMYCIN 1 GRAM (PRE-DOCKED) 1,000 MG/250 ML BAG IVPB SCH (21:56)
[2018-09-23] MEDS: ATORVASTATIN CA 20 MG TABLET (FP) PO SCH (22:00)
[2018-09-23] MEDS: INSULIN (LEVEMIR) 100 UNITS/ML UNITS SQ SCH (22:00)
[2018-09-23] MEDS: GABAPENTIN 300 MG CAPSULE (FP) PO SCH (22:00)
[2018-09-24] MEDS ORDERED: LABETALOL HCL 5 MG/1 ML (100MG/20 ML VIAL) IVPUSH ONE (01:18)
[2018-09-24] MEDS: ALBUTEROL SO4 2.5/IPRATROPIUM 0.5 INH SOL 3 ML VIAL.NEB. NEB PRN (03:44)
[2018-09-24] MEDS: INSULIN SLIDING SCALE (NOVOLOG) 1 VIAL SQ SCH ×4 (06:09→22:00)
[2018-09-24] MEDS: GLIMEPIRIDE 4 MG TABLET (FP) PO SCH (06:09)
[2018-09-24 06:44] LABS: HEMATOCRIT 32.1 % (35.4-49); HEMOGLOBIN 10.2 GM/dL (11.7-16.9); MCH 25.6 pg (25.7-33.7); MCHC 31.9 g/dl (32.0-35.9); MEAN CELL VOLUME 80.3 fl (80-96); MEAN PLT VOLUME 9.2 fl (7.5-11.1); PLATELET COUNT 298 K/MM3 (134-434); RDW 15.8 % (11.9-15.9); WHITE BLOOD COUNT 8.5 K/mm3 (4.0-10.0)
[2018-09-24 07:18] LABS: ALBUMIN 2.1 g/dl (3.4-5.0); ALK PHOS 128 U/L (45-117); ANION GAP 7 MMOL/L (8-16); BILIRUBIN,TOTAL 2.6 mg/dL (0.2-1); BLOOD UREA NITROGEN 22 mg/dL (7-18); CALCIUM 8.3 mg/dL (8.5-10.1); CHLORIDE 104 mmol/L (98-107); CO2 31 mmol/L (21-32); CREATININE 1.1 mg/dL (0.55-1.3); GLUCOSE,RANDOM 53 mg/dL (74-106); POTASSIUM 4.3 mmol/L (3.5-5.1); SGOT/AST 25 U/L (15-37); SGPT/ALT 37 U/L (13-61); SODIUM 141 mmol/L (136-145); TOT PROT 5.4 g/dl (6.4-8.2)
[2018-09-24] MEDS ORDERED: PT OWN MED DRAWER 7, Y5N ONE ×4 (10:15→21:41)
[2018-09-24] MEDS ORDERED: DEXTROSE 5%-WATER 100 ML IVPB ONE (10:16)
[2018-09-24] MEDS: TAMSULOSIN HCL 0.4 MG CAP PO SCH (10:26)
[2018-09-24] MEDS: GABAPENTIN 300 MG CAPSULE (FP) PO SCH ×2 (10:26→21:58)
[2018-09-24] MEDS: FUROSEMIDE 40 MG/4 ML INJECTABLE VIAL IVPUSH SCH (10:27)
[2018-09-24] MEDS: ASPIRIN COATED 81 MG TABLET.EC PO SCH (10:27)
[2018-09-24] MEDS: VANCOMYCIN 1 GRAM (PRE-DOCKED) 1,000 MG/250 ML BAG IVPB SCH ×2 (10:27→22:00)
[2018-09-24] MEDS: DIGOXIN 0.125 MG TABLET (FP) PO SCH (10:28)
[2018-09-24] MEDS: ISOSORBIDE MONONITRATE 30 MG TAB.SR.24H (FP) PO SCH (10:30)
[2018-09-24] MEDS: POTASSIUM CHLORIDE TABS 10 MEQ TABLET.ER (FP) PO SCH (10:30)
--- NOTE | 2018-09-24 10:30 | PN ---
Progress Note, Physician History of Present Illness: seen and examined today in [facility]. states he felt fatigued and lightheaded this am which he believes is due to low sugar level. no sob or chest pain. le edema persistent - Current Medication List Current Medications: Active Medications Acetaminophen (Tylenol -) 650 mg PO Q6H PRN PRN Reason: PAIN OR FEVER Albuterol/Ipratropium (Duoneb -) 1 amp NEB Q6H PRN PRN Reason: SHORTNESS OF BREATH Last Admin: 09/24/18 03:44 Dose: 1 amp Aspirin (Ecotrin -) 81 mg PO DAILY [facility] Atorvastatin Calcium (Lipitor -) 20 mg PO HS [facility] Last Admin: 09/23/18 22:00 Dose: 20 mg Digoxin (Lanoxin -) 0.125 mg PO DAILY [facility] Furosemide (Lasix Injection -) 40 mg IVPUSH DAILY [facility] Gabapentin (Neurontin -) 300 mg PO BID [facility] Last Admin: 09/23/18 22:00 Dose: 300 mg Glimepiride (Amaryl -) 4 mg PO DAILY@0700 [facility] Last Admin: 09/24/18 06:09 Dose: Not Given Ceftriaxone Sodium 2 gm/ (Dextrose) 100 mls @ 200 mls/hr IVPB DAILY [facility]; Protocol Last Admin: 09/23/18 16:39 Dose: 200 mls/hr Vancomycin HCl (Vancomycin (Pre-Docked)) 1,000 mg in 250 mls @ 166.667 mls/hr IVPB Q12H [facility]; Protocol Last Admin: 09/23/18 21:56 Dose: 166.667 mls/hr Insulin Aspart (Novolog Vial Sliding Scale -) 1 vial SQ [facility]; Protocol Last Admin: 09/24/18 06:09 Dose: Not Given Insulin Detemir (Levemir Vial) 30 units SQ [facility] Last Admin: 09/23/18 22:00 Dose: 30 units Isosorbide Mononitrate (Imdur -) 30 mg PO DAILY [facility] Metoprolol Succinate (Toprol Xl -) 100 mg PO DAILY [facility] Potassium Chloride (K-Dur -) 10 meq PO DAILY [facility] Rivaroxaban (Xarelto -) 20 mg PO DAILY@1800 [facility] Sacubitril/Valsartan (Entresto 49 Mg-51 Mg Tablet) 1 tab PO BID [facility] Last Admin: 12/03/18 21:56 Dose: 1 tab Tamsulosin HCl (Flomax -) 0.4 mg PO DAILY@0830 [facility] Tramadol HCl (Ultram -) 50 mg PO Q6H PRN PRN Reason: PAIN LEVEL 7 - 10 - Objective Vital Signs: Vital Signs Temperature 99.1 F 09/24/18 04:18 Pulse Rate 77 09/24/18 04:18 Respiratory Rate 20 09/24/18 04:18 Blood Pressure 153/77 09/24/18 04:18 O2 Sat by Pulse Oximetry (%) 99 09/23/18 20:00 Constitutional: Yes: No Distress, Calm Eyes: Yes: Conjunctiva Clear, EOM Intact HENT: Yes: Atraumatic, Normocephalic Neck: Yes: Supple, Trachea Midline Cardiovascular: Yes: Pulse Irregular, S1, S2. No: Regular Rate and Rhythm, Bradycardia, Tachycardia, Bruit, JVD, Gallop, Murmur, Rub, S3, S4, Varicosities Respiratory: Yes: Regular, CTA Bilaterally. No: Rales, Rhonchi, SOB, Wheezes Gastrointestinal: Yes: Normal Bowel Sounds, Soft. No: Distention, Tenderness Edema: Yes Edema: LLE: 1+, RLE: 1+ Neurological: Yes: Alert, Oriented Psychiatric: Yes: Alert, Oriented Labs: CBC, BMP 09/24/18 06:00 09/24/18 06:00 INR, PTT INR 2.14 (0.83-1.09) H 09/23/18 09:15 - ....Imaging Chest X-ray: Report Reviewed, Image Reviewed EKG: Report Reviewed, Image Reviewed Other: Report Reviewed, Image Reviewed (tele-nsr, pvcs) Assessment/Plan The patient is a 63-year-old man, we have a history of diabetes, hypertension, hyperlipidemia, coronary artery disease and myocardial infarction, prior stents , status post atrial fibrillation ablation 10/04/2017, atrial flutter, COPD, systolic heart failure, chronic leg edema, now presenting with URI symptoms, fevers, leg edema and shortness of breath. No chest pains. The patient seems to be quite comfortable. His breathing improved. Mild acute on chronic systolic heart failure. Elevated troponin, only 1 troponin checked. No chest pains. Lungs are clear Not significantly volume overloaded at this point Peripheral edema chronic likely due to venous insuff as well as CHF Cont Lasix, was not increased to bid, currently daily, can be transitioned back to po No further ischemic work up needed at this point Pt should fup closely as outpatient. Please call with any further questions.
[2018-09-24] MEDS: SACUBITRIL/VALSARTAN 49 MG-51 MG TABLET PO SCH ×2 (10:39→21:58)
--- NOTE | 2018-09-24 11:41 | PN ---
Progress Note (short form) - Note Progress Note: PULMONARY CONSULTATION DICTATED 09/23/18 IMP DYSPNEA ACUTE ON CHRONIC CHF BILATERAL LOWER EXT CELLULITIS COPD COUGH,CONGESTION R/O PNEUMONIA ASHD S/P [place],S/P STENT AFIB S/P ABLATION DM HLD + TROPONIN PLAN IV LASIX INHALED BRONCHODILATORS ABX PER ID CULTURES TREND TROPONIN DAILY WT FLU SCREEN F/U CHEST X-RAYS DR GOMEZ Problem List - Problems (1) Troponin I above reference range Code(s): R74.8 - ABNORMAL LEVELS OF OTHER SERUM ENZYMES (2) CHF (congestive heart failure) Code(s): I50.9 - HEART FAILURE, UNSPECIFIED (3) COPD (chronic obstructive pulmonary disease) Code(s): J44.9 - CHRONIC OBSTRUCTIVE PULMONARY DISEASE, UNSPECIFIED (4) Elevated troponin Code(s): R74.8 - ABNORMAL LEVELS OF OTHER SERUM ENZYMES (5) Pneumonia Code(s): J18.9 - PNEUMONIA, UNSPECIFIED ORGANISM Qualifiers: (6) Acute on chronic systolic heart failure Code(s): I50.23 - ACUTE ON CHRONIC SYSTOLIC (CONGESTIVE) HEART FAILURE (7) Atrial fibrillation Code(s): I48.91 - UNSPECIFIED ATRIAL FIBRILLATION (8) CAD S/P percutaneous coronary angioplasty Code(s): I25.10 - ATHSCL HEART DISEASE OF [place] CORONARY ARTERY W/O ANG PCTRS; Z98.61 - CORONARY ANGIOPLASTY STATUS (9) Cellulitis Code(s): L03.90 - CELLULITIS, UNSPECIFIED (10) Cough Code(s): R05 - COUGH (11) Diabetes mellitus Code(s): E11.9 - TYPE 2 DIABETES MELLITUS WITHOUT COMPLICATIONS Qualifiers: Diabetes mellitus type: type 2 (12) H/O heart artery stent Code(s): Z95.5 - PRESENCE OF CORONARY ANGIOPLASTY IMPLANT AND GRAFT (13) Hematuria Code(s): R31.9 - HEMATURIA, UNSPECIFIED Qualifiers: Hematuria type: unspecified type Qualified Code(s): R31.9 - Hematuria, unspecified
--- NOTE | 2018-09-24 11:45 | PN ---
Progress Note, Physician History of Present Illness: pulmonary alert,c/o leg pain,less dyspneic - Current Medication List Current Medications: Active Medications Acetaminophen (Tylenol -) 650 mg PO Q6H PRN PRN Reason: PAIN OR FEVER Albuterol/Ipratropium (Duoneb -) 1 amp NEB Q6H PRN PRN Reason: SHORTNESS OF BREATH Last Admin: 09/24/18 03:44 Dose: 1 amp Aspirin (Ecotrin -) 81 mg PO DAILY [facility] Last Admin: 09/24/18 10:27 Dose: 81 mg Atorvastatin Calcium (Lipitor -) 20 mg PO HS [facility] Last Admin: 09/23/18 22:00 Dose: 20 mg Digoxin (Lanoxin -) 0.125 mg PO DAILY [facility] Last Admin: 09/24/18 10:28 Dose: 0.125 mg Furosemide (Lasix Injection -) 40 mg IVPUSH DAILY [facility] Last Admin: 09/24/18 10:27 Dose: 40 mg Gabapentin (Neurontin -) 300 mg PO BID [facility] Last Admin: 09/24/18 10:26 Dose: 300 mg Glimepiride (Amaryl -) 4 mg PO DAILY@0700 [facility] Last Admin: 09/24/18 06:09 Dose: Not Given Ceftriaxone Sodium 2 gm/ (Dextrose) 100 mls @ 200 mls/hr IVPB DAILY [facility]; Protocol Last Admin: 09/23/18 16:39 Dose: 200 mls/hr Vancomycin HCl (Vancomycin (Pre-Docked)) 1,000 mg in 250 mls @ 166.667 mls/hr IVPB Q12H [facility]; Protocol Last Admin: 09/24/18 10:27 Dose: 166.667 mls/hr Insulin Aspart (Novolog Vial Sliding Scale -) 1 vial SQ [facility]; Protocol Last Admin: 09/24/18 06:09 Dose: Not Given Insulin Detemir (Levemir Vial) 30 units SQ [facility] Last Admin: 09/23/18 22:00 Dose: 30 units Isosorbide Mononitrate (Imdur -) 30 mg PO DAILY [facility] Last Admin: 09/24/18 10:30 Dose: 30 mg Metoprolol Succinate (Toprol Xl -) 100 mg PO DAILY [facility] Last Admin: 09/24/18 10:26 Dose: 100 mg Potassium Chloride (K-Dur -) 10 meq PO DAILY [facility] Last Admin: 09/24/18 10:30 Dose: 10 meq Rivaroxaban (Xarelto -) 20 mg PO DAILY@1800 [facility] Sacubitril/Valsartan (Entresto 49 Mg-51 Mg Tablet) 1 tab PO BID [facility] Last Admin: 09/24/18 10:39 Dose: 1 tab Tamsulosin HCl (Flomax -) 0.4 mg PO DAILY@0830 [facility] Last Admin: 09/24/18 10:26 Dose: 0.4 mg Tramadol HCl (Ultram -) 50 mg PO Q6H PRN PRN Reason: PAIN LEVEL 7 - 10 - Objective Vital Signs: Vital Signs Temperature 99.1 F 09/24/18 04:18 Pulse Rate 72 09/24/18 10:28 Respiratory Rate 20 09/24/18 04:18 Blood Pressure 153/77 09/24/18 04:18 O2 Sat by Pulse Oximetry (%) 99 09/23/18 20:00 Constitutional: Yes: Well Nourished, Calm Eyes: Yes: WNL HENT: Yes: WNL Neck: Yes: WNL Cardiovascular: Yes: Pulse Irregular, S1, S2 Respiratory: Yes: Diminished Gastrointestinal: Yes: Normal Bowel Sounds, Soft Extremities: Yes: WNL, Erythema Edema: Yes Labs: CBC, BMP 09/24/18 06:00 09/24/18 06:00 INR, PTT INR 2.14 (0.83-1.09) H 09/23/18 09:15 Problem List - Problems (1) Troponin I above reference range Code(s): R74.8 - ABNORMAL LEVELS OF OTHER SERUM ENZYMES (2) CHF (congestive heart failure) Code(s): I50.9 - HEART FAILURE, UNSPECIFIED (3) COPD (chronic obstructive pulmonary disease) Code(s): J44.9 - CHRONIC OBSTRUCTIVE PULMONARY DISEASE, UNSPECIFIED (4) Elevated troponin Code(s): R74.8 - ABNORMAL LEVELS OF OTHER SERUM ENZYMES (5) Pneumonia Code(s): J18.9 - PNEUMONIA, UNSPECIFIED ORGANISM Qualifiers: (6) Acute on chronic systolic heart failure Code(s): I50.23 - ACUTE ON CHRONIC SYSTOLIC (CONGESTIVE) HEART FAILURE (7) Atrial fibrillation Code(s): I48.91 - UNSPECIFIED ATRIAL FIBRILLATION (8) CAD S/P percutaneous coronary angioplasty Code(s): I25.10 - ATHSCL HEART DISEASE OF [place] CORONARY ARTERY W/O ANG PCTRS; Z98.61 - CORONARY ANGIOPLASTY STATUS (9) Cellulitis Code(s): L03.90 - CELLULITIS, UNSPECIFIED (10) Cough Code(s): R05 - COUGH (11) Diabetes mellitus Code(s): E11.9 - TYPE 2 DIABETES MELLITUS WITHOUT COMPLICATIONS Qualifiers: Diabetes mellitus type: type 2 (12) H/O heart artery stent Code(s): Z95.5 - PRESENCE OF CORONARY ANGIOPLASTY IMPLANT AND GRAFT (13) Hematuria Code(s): R31.9 - HEMATURIA, UNSPECIFIED Qualifiers: Hematuria type: unspecified type Qualified Code(s): R31.9 - Hematuria, unspecified Assessment/Plan IMP DYSPNEA ACUTE ON CHRONIC CHF BILATERAL LOWER EXT CELLULITIS COPD COUGH,CONGESTION R/O PNEUMONIA ASHD S/P AL,S/P STENT AFIB S/P ABLATION DM HLD + TROPONIN PLAN IV LASIX INHALED BRONCHODILATORS ABX PER ID TREND TROPONIN DAILY WT F/U CHEST X-RAYS DR GOMEZ Problem List - Problems (1) Troponin I above reference range Code(s): R74.8 - ABNORMAL LEVELS OF OTHER SERUM ENZYMES (2) CHF (congestive heart failure) Code(s): I50.9 - HEART FAILURE, UNSPECIFIED (3) COPD (chronic obstructive pulmonary disease) Code(s): J44.9 - CHRONIC OBSTRUCTIVE PULMONARY DISEASE, UNSPECIFIED (4) Elevated troponin Code(s): R74.8 - ABNORMAL LEVELS OF OTHER SERUM ENZYMES (5) Pneumonia Code(s): J18.9 - PNEUMONIA, UNSPECIFIED ORGANISM Qualifiers: (6) Acute on chronic systolic heart failure Code(s): I50.23 - ACUTE ON CHRONIC SYSTOLIC (CONGESTIVE) HEART FAILURE (7) Atrial fibrillation Code(s): I48.91 - UNSPECIFIED ATRIAL FIBRILLATION (8) CAD S/P percutaneous coronary angioplasty Code(s): I25.10 - ATHSCL HEART DISEASE OF [place] CORONARY ARTERY W/O ANG PCTRS; Z98.61 - CORONARY ANGIOPLASTY STATUS (9) Cellulitis Code(s): L03.90 - CELLULITIS, UNSPECIFIED (10) Cough Code(s): R05 - COUGH (11) Diabetes mellitus Code(s): E11.9 - TYPE 2 DIABETES MELLITUS WITHOUT COMPLICATIONS Qualifiers: Diabetes mellitus type: type 2 (12) H/O heart artery stent Code(s): Z95.5 - PRESENCE OF CORONARY ANGIOPLASTY IMPLANT AND GRAFT (13) Hematuria Code(s): R31.9 - HEMATURIA, UNSPECIFIED Qualifiers: Hematuria type: unspecified type Qualified Code(s): R31.9 - Hematuria, unspecified
[2018-09-24] MEDS: CEFTRIAXONE 2 GM in DEXTROSE 5%-WATER 100 ML IVPB SCH (13:23)
[2018-09-24] MEDS: traMADol HCL 50 MG TABLET PO PRN (13:35)
--- NOTE | 2018-09-24 15:27 | PN ---
Progress Note, Physician Chief Complaint: AWAKE ALERT FEELING BETTER - Current Medication List Current Medications: Active Medications Acetaminophen (Tylenol -) 650 mg PO Q6H PRN PRN Reason: PAIN OR FEVER Albuterol/Ipratropium (Duoneb -) 1 amp NEB Q6H PRN PRN Reason: SHORTNESS OF BREATH Last Admin: 09/24/18 03:44 Dose: 1 amp Aspirin (Ecotrin -) 81 mg PO DAILY [facility] Last Admin: 09/24/18 10:27 Dose: 81 mg Atorvastatin Calcium (Lipitor -) 20 mg PO HS [facility] Last Admin: 09/23/18 22:00 Dose: 20 mg Digoxin (Lanoxin -) 0.125 mg PO DAILY [facility] Last Admin: 09/24/18 10:28 Dose: 0.125 mg Furosemide (Lasix Injection -) 40 mg IVPUSH DAILY [facility] Last Admin: 09/24/18 10:27 Dose: 40 mg Gabapentin (Neurontin -) 300 mg PO BID [facility] Last Admin: 09/24/18 10:26 Dose: 300 mg Glimepiride (Amaryl -) 4 mg PO DAILY@0700 [facility] Last Admin: 09/24/18 06:09 Dose: Not Given Ceftriaxone Sodium 2 gm/ (Dextrose) 100 mls @ 200 mls/hr IVPB DAILY [facility]; Protocol Last Admin: 09/24/18 13:23 Dose: 200 mls/hr Vancomycin HCl (Vancomycin (Pre-Docked)) 1,000 mg in 250 mls @ 166.667 mls/hr IVPB Q12H [facility]; Protocol Last Admin: 09/24/18 10:27 Dose: 166.667 mls/hr Insulin Aspart (Novolog Vial Sliding Scale -) 1 vial SQ ACHS [facility]; Protocol Last Admin: 09/24/18 12:22 Dose: Not Given Insulin Detemir (Levemir Vial) [address] [facility] Last Admin: 09/23/18 22:00 Dose: 30 units Isosorbide Mononitrate (Imdur -) 30 mg PO DAILY [facility] Last Admin: 09/24/18 10:30 Dose: 30 mg Metoprolol Succinate (Toprol Xl -) 100 mg PO DAILY [facility] Last Admin: 09/24/18 10:26 Dose: 100 mg Potassium Chloride (K-Dur -) 10 meq PO DAILY [facility] Last Admin: 09/24/18 10:30 Dose: 10 meq Rivaroxaban (Xarelto -) 20 mg PO DAILY@1800 [facility] Sacubitril/Valsartan (Entresto 49 Mg-51 Mg Tablet) 1 tab PO BID [facility] Last Admin: 09/24/18 10:39 Dose: 1 tab Tamsulosin HCl (Flomax -) 0.4 mg PO DAILY@0830 [facility] Last Admin: 09/24/18 10:26 Dose: 0.4 mg Tramadol HCl (Ultram -) 50 mg PO Q6H PRN PRN Reason: PAIN LEVEL 7 - 10 Last Admin: 09/24/18 13:35 Dose: 50 mg - Objective Vital Signs: Vital Signs Temperature 97.2 F L 09/24/18 10:00 Pulse Rate 72 09/24/18 10:28 Respiratory Rate 20 09/24/18 10:00 Blood Pressure 136/72 09/24/18 10:00 O2 Sat by Pulse Oximetry (%) 97 09/24/18 09:00 Constitutional: Yes: Mild Distress Eyes: Yes: WNL HENT: Yes: WNL Neck: Yes: WNL Cardiovascular: Yes: Pulse Irregular Respiratory: Yes: Rhonchi Gastrointestinal: Yes: WNL Genitourinary: Yes: WNL Musculoskeletal: Yes: WNL Extremities: Yes: WNL Edema: No Peripheral Pulses WNL: Yes Integumentary: Yes: WNL Wound/Incision: Yes: Clean/Dry Neurological: Yes: Numbness, Tingling ...Motor Strength: WNL Psychiatric: Yes: WNL Labs: CBC, BMP 09/24/18 06:00 09/24/18 06:00 INR, PTT INR 2.14 (0.83-1.09) H 09/23/18 09:15 Problem List - Problems (1) CHF (congestive heart failure) Code(s): I50.9 - HEART FAILURE, UNSPECIFIED (2) COPD (chronic obstructive pulmonary disease) Code(s): J44.9 - CHRONIC OBSTRUCTIVE PULMONARY DISEASE, UNSPECIFIED (3) Elevated troponin Code(s): R74.8 - ABNORMAL LEVELS OF OTHER SERUM ENZYMES (4) Pneumonia Code(s): J18.9 - PNEUMONIA, UNSPECIFIED ORGANISM Qualifiers: (5) Sepsis Code(s): A41.9 - SEPSIS, UNSPECIFIED ORGANISM (6) Acute exacerbation of chronic obstructive pulmonary disease (COPD) Code(s): J44.1 - CHRONIC OBSTRUCTIVE PULMONARY DISEASE W (ACUTE) EXACERBATION (7) Acute on chronic systolic heart failure Code(s): I50.23 - ACUTE ON CHRONIC SYSTOLIC (CONGESTIVE) HEART FAILURE (8) Atrial fibrillation Code(s): I48.91 - UNSPECIFIED ATRIAL FIBRILLATION (9) CAD S/P percutaneous coronary angioplasty Code(s): I25.10 - ATHSCL HEART DISEASE OF [place] CORONARY ARTERY W/O ANG PCTRS; Z98.61 - CORONARY ANGIOPLASTY STATUS (10) Cough Code(s): R05 - COUGH (11) Diabetes mellitus Code(s): E11.9 - TYPE 2 DIABETES MELLITUS WITHOUT COMPLICATIONS Qualifiers: Diabetes mellitus type: type 2 (12) Dyspnea Code(s): R06.00 - DYSPNEA, UNSPECIFIED (13) Peripheral vascular disease of lower extremity with ulceration Code(s): I73.9 - PERIPHERAL VASCULAR DISEASE, UNSPECIFIED; L97.909 - NON-PRS CHRONIC ULC UNSP PRT OF UNSP LOW LEG W UNSP SEVERITY (14) Type 2 diabetes mellitus with diabetic polyneuropathy Code(s): E11.42 - TYPE 2 DIABETES MELLITUS WITH DIABETIC POLYNEUROPATHY Assessment/Plan IV ABX PER ID NEBS STEROIDS MONITOR BGM SWAB FOR FLU NEGATIVE 02 SUPPORT CARDIO/PULM EVAL TELEMETRY BGM/CHECK DIABETIC NEUROPATHY OUTPATIENT WORKUP
[2018-09-24] MEDS: RIVAROXABAN 20 MG TABLET PO SCH (17:37)
[2018-09-24] MEDS: ATORVASTATIN CA 20 MG TABLET (FP) PO SCH (21:58)
[2018-09-24] MEDS: INSULIN (LEVEMIR) 100 UNITS/ML UNITS SQ SCH (21:59)
[2018-09-25] MEDS: INSULIN SLIDING SCALE (NOVOLOG) 1 VIAL SQ SCH ×4 (06:21→21:24)
[2018-09-25] MEDS: GLIMEPIRIDE 4 MG TABLET (FP) PO SCH (06:22)
[2018-09-25] MEDS: TAMSULOSIN HCL 0.4 MG CAP PO SCH (08:38)
--- NOTE | 2018-09-25 09:40 | PN ---
Progress Note, Physician Chief Complaint: AWAKE ALERT FEELING BETTER - Current Medication List Current Medications: Active Medications Acetaminophen (Tylenol -) 650 mg PO Q6H PRN PRN Reason: PAIN OR FEVER Albuterol/Ipratropium (Duoneb -) 1 amp NEB Q6H PRN PRN Reason: SHORTNESS OF BREATH Last Admin: 09/24/18 03:44 Dose: 1 amp Aspirin (Ecotrin -) 81 mg PO DAILY [facility] Last Admin: 09/24/18 10:27 Dose: 81 mg Atorvastatin Calcium (Lipitor -) 20 mg PO HS [facility] Last Admin: 09/24/18 21:58 Dose: 20 mg Digoxin (Lanoxin -) 0.125 mg PO DAILY [facility] Last Admin: 09/24/18 10:28 Dose: 0.125 mg Furosemide (Lasix Injection -) 40 mg IVPUSH DAILY [facility] Last Admin: 09/24/18 10:27 Dose: 40 mg Gabapentin (Neurontin -) 300 mg PO BID [facility] Last Admin: 09/24/18 21:58 Dose: 300 mg Glimepiride (Amaryl -) 4 mg PO DAILY@0700 [facility] Last Admin: 09/25/18 06:22 Dose: 4 mg Ceftriaxone Sodium 2 gm/ (Dextrose) 100 mls @ 200 mls/hr IVPB DAILY [facility]; Protocol Last Admin: 09/24/18 13:23 Dose: 200 mls/hr Vancomycin HCl (Vancomycin (Pre-Docked)) 1,000 mg in 250 mls @ 166.667 mls/hr IVPB Q12H [facility]; Protocol Last Admin: 09/24/18 22:00 Dose: 166.667 mls/hr Insulin Aspart (Novolog Vial Sliding Scale -) 1 vial SQ ACHS [facility]; Protocol Last Admin: 09/25/18 06:21 Dose: Not Given Insulin Detemir (Levemir Vial) 30 units SQ [facility] Last Admin: 09/24/18 21:59 Dose: 30 units Isosorbide Mononitrate (Imdur -) 30 mg PO DAILY [facility] Last Admin: 09/24/18 10:30 Dose: 30 mg Metoprolol Succinate (Toprol Xl -) 100 mg PO DAILY [facility] Last Admin: 09/24/18 10:26 Dose: 100 mg Potassium Chloride (K-Dur -) 10 meq PO DAILY [facility] Last Admin: 09/24/18 10:30 Dose: 10 meq Rivaroxaban (Xarelto -) 20 mg PO DAILY@1800 [facility] Last Admin: 09/24/18 17:37 Dose: 20 mg Sacubitril/Valsartan (Entresto 49 Mg-51 Mg Tablet) 1 tab PO BID [facility] Last Admin: 09/24/18 21:58 Dose: 1 tab Tamsulosin HCl (Flomax -) 0.4 mg PO DAILY@0830 [facility] Last Admin: 09/25/18 08:38 Dose: 0.4 mg Tramadol HCl (Ultram -) 50 mg PO Q6H PRN PRN Reason: PAIN LEVEL 7 - 10 Last Admin: 09/24/18 13:35 Dose: 50 mg - Objective Vital Signs: Vital Signs Temperature 98.6 F 09/25/18 06:00 Pulse Rate 73 09/25/18 06:00 Respiratory Rate 20 09/25/18 06:00 Blood Pressure 152/85 09/25/18 06:00 O2 Sat by Pulse Oximetry (%) 97 09/24/18 21:00 Constitutional: Yes: Mild Distress Eyes: Yes: WNL HENT: Yes: WNL Neck: Yes: WNL Cardiovascular: Yes: Pulse Irregular Respiratory: Yes: WNL Gastrointestinal: Yes: WNL Genitourinary: Yes: WNL Musculoskeletal: Yes: WNL Extremities: Yes: WNL Edema: No Peripheral Pulses WNL: Yes Integumentary: Yes: WNL Wound/Incision: Yes: Clean/Dry Neurological: Yes: WNL ...Motor Strength: WNL Psychiatric: Yes: WNL Labs: CBC, BMP 09/24/18 06:00 09/24/18 06:00 INR, PTT INR 2.14 (0.83-1.09) H 09/23/18 09:15 Problem List - Problems (1) CHF (congestive heart failure) Code(s): I50.9 - HEART FAILURE, UNSPECIFIED (2) COPD (chronic obstructive pulmonary disease) Code(s): J44.9 - CHRONIC OBSTRUCTIVE PULMONARY DISEASE, UNSPECIFIED (3) Elevated troponin Code(s): R74.8 - ABNORMAL LEVELS OF OTHER SERUM ENZYMES (4) Pneumonia Code(s): J18.9 - PNEUMONIA, UNSPECIFIED ORGANISM Qualifiers: (5) Sepsis Code(s): A41.9 - SEPSIS, UNSPECIFIED ORGANISM (6) Acute exacerbation of chronic obstructive pulmonary disease (COPD) Code(s): J44.1 - CHRONIC OBSTRUCTIVE PULMONARY DISEASE W (ACUTE) EXACERBATION (7) Acute on chronic systolic heart failure Code(s): I50.23 - ACUTE ON CHRONIC SYSTOLIC (CONGESTIVE) HEART FAILURE (8) Atrial fibrillation Code(s): I48.91 - UNSPECIFIED ATRIAL FIBRILLATION (9) CAD S/P percutaneous coronary angioplasty Code(s): I25.10 - ATHSCL HEART DISEASE OF [place] CORONARY ARTERY W/O ANG PCTRS; Z98.61 - CORONARY ANGIOPLASTY STATUS (10) Cough Code(s): R05 - COUGH (11) Diabetes mellitus Code(s): E11.9 - TYPE 2 DIABETES MELLITUS WITHOUT COMPLICATIONS Qualifiers: Diabetes mellitus type: type 2 (12) Dyspnea Code(s): R06.00 - DYSPNEA, UNSPECIFIED (13) Peripheral vascular disease of lower extremity with ulceration Code(s): I73.9 - PERIPHERAL VASCULAR DISEASE, UNSPECIFIED; L97.909 - NON-PRS CHRONIC ULC UNSP PRT OF UNSP LOW LEG W UNSP SEVERITY (14) Type 2 diabetes mellitus with diabetic polyneuropathy Code(s): E11.42 - TYPE 2 DIABETES MELLITUS WITH DIABETIC POLYNEUROPATHY Assessment/Plan IV ABX PER ID NEBS STEROIDS MONITOR BGM SWAB FOR FLU NEGATIVE 02 SUPPORT CARDIO/PULM EVAL TELEMETRY BGM/CHECK DIABETIC NEUROPATHY OUTPATIENT WORKUP
[2018-09-25] MEDS ORDERED: DEXTROSE 5%-WATER 100 ML IVPB ONE (09:55)
[2018-09-25] MEDS ORDERED: PT OWN MED DRAWER 7, Y5N ONE ×3 (09:55→20:59)
[2018-09-25] MEDS: CEFTRIAXONE 2 GM in DEXTROSE 5%-WATER 100 ML IVPB SCH (10:10)
[2018-09-25] MEDS: ASPIRIN COATED 81 MG TABLET.EC PO SCH (10:17)
[2018-09-25] MEDS: ISOSORBIDE MONONITRATE 30 MG TAB.SR.24H (FP) PO SCH (10:17)
[2018-09-25] MEDS: VANCOMYCIN 1 GRAM (PRE-DOCKED) 1,000 MG/250 ML BAG IVPB SCH ×2 (10:17→21:25)
[2018-09-25] MEDS: GABAPENTIN 300 MG CAPSULE (FP) PO SCH ×2 (10:17→21:24)
[2018-09-25] MEDS: POTASSIUM CHLORIDE TABS 10 MEQ TABLET.ER (FP) PO SCH (10:18)
[2018-09-25] MEDS: DIGOXIN 0.125 MG TABLET (FP) PO SCH (10:18)
[2018-09-25] MEDS: FUROSEMIDE 40 MG/4 ML INJECTABLE VIAL IVPUSH SCH (10:20)
[2018-09-25] MEDS: SACUBITRIL/VALSARTAN 49 MG-51 MG TABLET PO SCH ×2 (10:20→21:25)
--- NOTE | 2018-09-25 11:50 | PN ---
Progress Note, Physician History of Present Illness: PULMONARY FEELING BETTER,LESS DYSPNEIC - Current Medication List Current Medications: Active Medications Acetaminophen (Tylenol -) 650 mg PO Q6H PRN PRN Reason: PAIN OR FEVER Albuterol/Ipratropium (Duoneb -) 1 amp NEB Q6H PRN PRN Reason: SHORTNESS OF BREATH Last Admin: 09/24/18 03:44 Dose: 1 amp Aspirin (Ecotrin -) 81 mg PO DAILY [facility] Last Admin: 09/25/18 10:17 Dose: 81 mg Atorvastatin Calcium (Lipitor -) 20 mg PO HS [facility] Last Admin: 09/24/18 21:58 Dose: 20 mg Digoxin (Lanoxin -) 0.125 mg PO DAILY [facility] Last Admin: 09/25/18 10:18 Dose: 0.125 mg Furosemide (Lasix Injection -) 40 mg IVPUSH DAILY [facility] Last Admin: 09/25/18 10:20 Dose: 40 mg Gabapentin (Neurontin -) 300 mg PO BID [facility] Last Admin: 09/25/18 10:17 Dose: 300 mg Glimepiride (Amaryl -) 4 mg PO DAILY@0700 [facility] Last Admin: 09/25/18 06:22 Dose: 4 mg Ceftriaxone Sodium 2 gm/ (Dextrose) 100 mls @ 200 mls/hr IVPB DAILY [facility]; Protocol Last Admin: 09/24/18 13:23 Dose: 200 mls/hr Vancomycin HCl (Vancomycin (Pre-Docked)) 1,000 mg in 250 mls @ 166.667 mls/hr IVPB Q12H [facility]; Protocol Last Admin: 09/25/18 10:17 Dose: 166.667 mls/hr Insulin Aspart (Novolog Vial Sliding Scale -) 1 vial SQ ACHS [facility]; Protocol Last Admin: 09/25/18 06:21 Dose: Not Given Insulin Detemir (Levemir Vial) 30 units SQ HS [facility] Last Admin: 09/24/18 21:59 Dose: 30 units Isosorbide Mononitrate (Imdur -) 30 mg PO DAILY [facility] Last Admin: 09/25/18 10:17 Dose: 30 mg Metoprolol Succinate (Toprol Xl -) 100 mg PO DAILY [facility] Last Admin: 09/25/18 10:17 Dose: 100 mg Potassium Chloride (K-Dur -) 10 meq PO DAILY [facility] Last Admin: 09/25/18 10:18 Dose: 10 meq Rivaroxaban (Xarelto -) 20 mg PO DAILY@1800 [facility] Last Admin: 09/24/18 17:37 Dose: 20 mg Sacubitril/Valsartan (Entresto 49 Mg-51 Mg Tablet) 1 tab PO BID [facility] Last Admin: 09/25/18 10:20 Dose: 1 tab Tamsulosin HCl (Flomax -) 0.4 mg PO DAILY@0830 [facility] Last Admin: 09/25/18 08:38 Dose: 0.4 mg Tramadol HCl (Ultram -) 50 mg PO Q6H PRN PRN Reason: PAIN LEVEL 7 - 10 Last Admin: 09/24/18 13:35 Dose: 50 mg - Objective Vital Signs: Vital Signs Temperature 98.6 F 09/25/18 06:00 Pulse Rate 73 09/25/18 10:18 Respiratory Rate 20 09/25/18 09:00 Blood Pressure 152/85 09/25/18 06:00 O2 Sat by Pulse Oximetry (%) 97 09/25/18 09:00 Constitutional: Yes: Well Nourished, Calm Eyes: Yes: WNL HENT: Yes: WNL Neck: Yes: WNL Cardiovascular: Yes: Pulse Irregular, S1, S2 Respiratory: Yes: Diminished Gastrointestinal: Yes: Normal Bowel Sounds, Soft Extremities: Yes: Erythema Edema: Yes Problem List - Problems (1) Troponin I above reference range Code(s): R74.8 - ABNORMAL LEVELS OF OTHER SERUM ENZYMES (2) CHF (congestive heart failure) Code(s): I50.9 - HEART FAILURE, UNSPECIFIED (3) COPD (chronic obstructive pulmonary disease) Code(s): J44.9 - CHRONIC OBSTRUCTIVE PULMONARY DISEASE, UNSPECIFIED (4) Elevated troponin Code(s): R74.8 - ABNORMAL LEVELS OF OTHER SERUM ENZYMES (5) Pneumonia Code(s): J18.9 - PNEUMONIA, UNSPECIFIED ORGANISM Qualifiers: (6) Acute on chronic systolic heart failure Code(s): I50.23 - ACUTE ON CHRONIC SYSTOLIC (CONGESTIVE) HEART FAILURE (7) Atrial fibrillation Code(s): I48.91 - UNSPECIFIED ATRIAL FIBRILLATION (8) CAD S/P percutaneous coronary angioplasty Code(s): I25.10 - ATHSCL HEART DISEASE OF [place] CORONARY ARTERY W/O ANG PCTRS; Z98.61 - CORONARY ANGIOPLASTY STATUS (9) Cellulitis Code(s): L03.90 - CELLULITIS, UNSPECIFIED (10) Cough Code(s): R05 - COUGH (11) Diabetes mellitus Code(s): E11.9 - TYPE 2 DIABETES MELLITUS WITHOUT COMPLICATIONS Qualifiers: Diabetes mellitus type: type 2 (12) H/O heart artery stent Code(s): Z95.5 - PRESENCE OF CORONARY ANGIOPLASTY IMPLANT AND GRAFT (13) Hematuria Code(s): R31.9 - HEMATURIA, UNSPECIFIED Qualifiers: Hematuria type: unspecified type Qualified Code(s): R31.9 - Hematuria, unspecified Assessment/Plan IMP DYSPNEA ACUTE ON CHRONIC CHF BILATERAL LOWER EXT CELLULITIS COPD COUGH,CONGESTION R/O PNEUMONIA ASHD S/P TX,S/P STENT AFIB S/P ABLATION DM HLD + TROPONIN PLAN IV LASIX INHALED BRONCHODILATORS ABX PER ID DAILY WT F/U CHEST X-RAY DR GOMEZ Problem List - Problems (1) Troponin I above reference range Code(s): R74.8 - ABNORMAL LEVELS OF OTHER SERUM ENZYMES (2) CHF (congestive heart failure) Code(s): I50.9 - HEART FAILURE, UNSPECIFIED (3) COPD (chronic obstructive pulmonary disease) Code(s): J44.9 - CHRONIC OBSTRUCTIVE PULMONARY DISEASE, UNSPECIFIED (4) Elevated troponin Code(s): R74.8 - ABNORMAL LEVELS OF OTHER SERUM ENZYMES (5) Pneumonia Code(s): J18.9 - PNEUMONIA, UNSPECIFIED ORGANISM Qualifiers: (6) Acute on chronic systolic heart failure Code(s): I50.23 - ACUTE ON CHRONIC SYSTOLIC (CONGESTIVE) HEART FAILURE (7) Atrial fibrillation Code(s): I48.91 - UNSPECIFIED ATRIAL FIBRILLATION (8) CAD S/P percutaneous coronary angioplasty Code(s): I25.10 - ATHSCL HEART DISEASE OF [place] CORONARY ARTERY W/O ANG PCTRS; Z98.61 - CORONARY ANGIOPLASTY STATUS (9) Cellulitis Code(s): L03.90 - CELLULITIS, UNSPECIFIED (10) Cough Code(s): R05 - COUGH (11) Diabetes mellitus Code(s): E11.9 - TYPE 2 DIABETES MELLITUS WITHOUT COMPLICATIONS Qualifiers: Diabetes mellitus type: type 2 (12) H/O heart artery stent Code(s): Z95.5 - PRESENCE OF CORONARY ANGIOPLASTY IMPLANT AND GRAFT (13) Hematuria Code(s): R31.9 - HEMATURIA, UNSPECIFIED Qualifiers: Hematuria type: unspecified type Qualified Code(s): R31.9 - Hematuria, unspecified
[2018-09-25] MEDS: traMADol HCL 50 MG TABLET PO PRN (16:58)
[2018-09-25] MEDS: RIVAROXABAN 20 MG TABLET PO SCH (18:09)
--- NOTE | 2018-09-25 21:03 | PN ---
Progress Note, Physician History of Present Illness: Awake, alert No acute distress Afebrile - Current Medication List Current Medications: Active Medications Acetaminophen (Tylenol -) 650 mg PO Q6H PRN PRN Reason: PAIN OR FEVER Albuterol/Ipratropium (Duoneb -) 1 amp NEB Q6H PRN PRN Reason: SHORTNESS OF BREATH Last Admin: 09/24/18 03:44 Dose: 1 amp Aspirin (Ecotrin -) 81 mg PO DAILY [facility] Last Admin: 09/25/18 10:17 Dose: 81 mg Atorvastatin Calcium (Lipitor -) 20 mg PO HS [facility] Last Admin: 09/24/18 21:58 Dose: 20 mg Digoxin (Lanoxin -) 0.125 mg PO DAILY [facility] Last Admin: 09/25/18 10:18 Dose: 0.125 mg Furosemide (Lasix Injection -) 40 mg IVPUSH DAILY [facility] Last Admin: 09/25/18 10:20 Dose: 40 mg Gabapentin (Neurontin -) 300 mg PO BID [facility] Last Admin: 09/25/18 10:17 Dose: 300 mg Glimepiride (Amaryl -) 4 mg PO DAILY@0700 [facility] Last Admin: 09/25/18 06:22 Dose: 4 mg Ceftriaxone Sodium 2 gm/ (Dextrose) 100 mls @ 200 mls/hr IVPB DAILY [facility]; Protocol Last Admin: 09/25/18 10:10 Dose: 200 mls/hr Vancomycin HCl (Vancomycin (Pre-Docked)) 1,000 mg in 250 mls @ 166.667 mls/hr IVPB Q12H [facility]; Protocol Last Admin: 09/25/18 10:17 Dose: 166.667 mls/hr Insulin Aspart (Novolog Vial Sliding Scale -) 1 vial SQ ACHS [facility]; Protocol Last Admin: 09/25/18 16:49 Dose: 4 units Insulin Detemir (Levemir Vial) 30 units SQ HS [facility] Last Admin: 09/24/18 21:59 Dose: 30 units Isosorbide Mononitrate (Imdur -) 30 mg PO DAILY [facility] Last Admin: 09/25/18 10:17 Dose: 30 mg Metoprolol Succinate (Toprol Xl -) 100 mg PO DAILY [facility] Last Admin: 09/25/18 10:17 Dose: 100 mg Potassium Chloride (K-Dur -) 10 meq PO DAILY [facility] Last Admin: 09/25/18 10:18 Dose: 10 meq Rivaroxaban (Xarelto -) 20 mg PO DAILY@1800 [facility] Last Admin: 09/25/18 18:09 Dose: 20 mg Sacubitril/Valsartan (Entresto 49 Mg-51 Mg Tablet) 1 tab PO BID [facility] Last Admin: 09/25/18 10:20 Dose: 1 tab Tamsulosin HCl (Flomax -) 0.4 mg PO DAILY@0830 [facility] Last Admin: 09/25/18 08:38 Dose: 0.4 mg Tramadol HCl (Ultram -) 50 mg PO Q6H PRN PRN Reason: PAIN LEVEL 7 - 10 Last Admin: 09/25/18 16:58 Dose: 50 mg - Objective Vital Signs: Vital Signs Temperature 98.5 F 09/25/18 18:00 Pulse Rate 80 09/25/18 18:00 Respiratory Rate 20 09/25/18 18:00 Blood Pressure 154/92 09/25/18 18:00 O2 Sat by Pulse Oximetry (%) 96 09/25/18 12:52 Constitutional: Yes: No Distress Cardiovascular: Yes: Regular Rate and Rhythm, S1, S2 Respiratory: Yes: CTA Bilaterally Gastrointestinal: Yes: Normal Bowel Sounds, Soft. No: Tenderness Edema: Yes Edema: LLE: 1+, RLE: 1+ Integumentary: Yes: Other (+ bilateral LE erythema) Labs: CBC, BMP 09/24/18 06:00 09/24/18 06:00 INR, PTT INR 2.14 (0.83-1.09) H 09/23/18 09:15 Assessment/Plan Cellulitis LE bilaterally CHF ? pneumonia Hx MRSA Continue empiric ceftriaxone/ vancomycin
[2018-09-25] MEDS: ATORVASTATIN CA 20 MG TABLET (FP) PO SCH (21:24)
[2018-09-25] MEDS: INSULIN (LEVEMIR) 100 UNITS/ML UNITS SQ SCH (21:24)
[2018-09-26] MEDS: INSULIN SLIDING SCALE (NOVOLOG) 1 VIAL SQ SCH ×4 (06:09→21:05)
[2018-09-26] MEDS ORDERED: PT OWN MED DRAWER 7, Y5N ONE ×4 (06:16→20:10)
[2018-09-26] MEDS: GLIMEPIRIDE 4 MG TABLET (FP) PO SCH (06:18)
[2018-09-26] MEDS: ALBUTEROL SO4 2.5/IPRATROPIUM 0.5 INH SOL 3 ML VIAL.NEB. NEB PRN (07:25)
[2018-09-26] MEDS: TAMSULOSIN HCL 0.4 MG CAP PO SCH (08:30)
[2018-09-26] MEDS ORDERED: DEXTROSE 5%-WATER 100 ML IVPB ONE (09:49)
[2018-09-26] MEDS: CEFTRIAXONE 2 GM in DEXTROSE 5%-WATER 100 ML IVPB SCH (10:15)
[2018-09-26] MEDS: ASPIRIN COATED 81 MG TABLET.EC PO SCH (10:17)
[2018-09-26] MEDS: DIGOXIN 0.125 MG TABLET (FP) PO SCH (10:17)
[2018-09-26] MEDS: FUROSEMIDE 40 MG/4 ML INJECTABLE VIAL IVPUSH SCH (10:17)
[2018-09-26] MEDS: GABAPENTIN 300 MG CAPSULE (FP) PO SCH ×2 (10:17→21:04)
[2018-09-26] MEDS: SACUBITRIL/VALSARTAN 49 MG-51 MG TABLET PO SCH ×2 (10:18→21:05)
[2018-09-26] MEDS: ISOSORBIDE MONONITRATE 30 MG TAB.SR.24H (FP) PO SCH (10:18)
[2018-09-26] MEDS: POTASSIUM CHLORIDE TABS 10 MEQ TABLET.ER (FP) PO SCH (10:18)
[2018-09-26] MEDS: traMADol HCL 50 MG TABLET PO PRN (10:35)
[2018-09-26] MEDS: VANCOMYCIN 1 GRAM (PRE-DOCKED) 1,000 MG/250 ML BAG IVPB SCH ×2 (12:02→21:05)
--- NOTE | 2018-09-26 12:32 | PN ---
Progress Note, Physician Chief Complaint: patient seen and examined no distress - Current Medication List Current Medications: Active Medications Acetaminophen (Tylenol -) 650 mg PO Q6H PRN PRN Reason: PAIN OR FEVER Albuterol/Ipratropium (Duoneb -) 1 amp NEB Q6H PRN PRN Reason: SHORTNESS OF BREATH Last Admin: 09/26/18 07:25 Dose: 1 amp Aspirin (Ecotrin -) 81 mg PO DAILY [facility] Last Admin: 09/26/18 10:17 Dose: 81 mg Atorvastatin Calcium (Lipitor -) 20 mg PO HS [facility] Last Admin: 09/25/18 21:24 Dose: 20 mg Digoxin (Lanoxin -) 0.125 mg PO DAILY [facility] Last Admin: 09/26/18 10:17 Dose: 0.125 mg Furosemide (Lasix Injection -) 40 mg IVPUSH DAILY [facility] Last Admin: 09/26/18 10:17 Dose: 40 mg Gabapentin (Neurontin -) 300 mg PO BID [facility] Last Admin: 09/26/18 10:17 Dose: 300 mg Glimepiride (Amaryl -) 4 mg PO DAILY@0700 [facility] Last Admin: 09/26/18 06:18 Dose: 4 mg Ceftriaxone Sodium 2 gm/ (Dextrose) 100 mls @ 200 mls/hr IVPB DAILY [facility]; Protocol Last Admin: 09/26/18 10:15 Dose: 200 mls/hr Vancomycin HCl (Vancomycin (Pre-Docked)) 1,000 mg in 250 mls @ 166.667 mls/hr IVPB Q12H [facility]; Protocol Last Admin: 09/26/18 12:02 Dose: 166.667 mls/hr Insulin Aspart (Novolog Vial Sliding Scale -) 1 vial SQ ACHS [facility]; Protocol Last Admin: 09/26/18 12:01 Dose: 2 units Insulin Detemir (Levemir Vial) 30 units SQ [facility] Last Admin: 09/25/18 21:24 Dose: 30 units Isosorbide Mononitrate (Imdur -) 30 mg PO DAILY [facility] Last Admin: 09/26/18 10:18 Dose: 30 mg Metoprolol Succinate (Toprol Xl -) 100 mg PO DAILY [facility] Last Admin: 09/26/18 10:17 Dose: 100 mg Potassium Chloride (K-Dur -) 10 meq PO DAILY [facility] Last Admin: 09/26/18 10:18 Dose: 10 meq Rivaroxaban (Xarelto -) 20 mg PO DAILY@1800 [facility] Last Admin: 09/25/18 18:09 Dose: 20 mg Sacubitril/Valsartan (Entresto 49 Mg-51 Mg Tablet) 1 tab PO BID [facility] Last Admin: 09/26/18 10:18 Dose: 1 tab Tamsulosin HCl (Flomax -) 0.4 mg PO DAILY@0830 [facility] Last Admin: 09/26/18 08:30 Dose: 0.4 mg Tramadol HCl (Ultram -) 50 mg PO Q6H PRN PRN Reason: PAIN LEVEL 7 - 10 Last Admin: 09/26/18 10:35 Dose: 50 mg - Objective Vital Signs: Vital Signs Temperature 98.6 F 09/26/18 10:00 Pulse Rate 77 09/26/18 10:17 Respiratory Rate 20 09/26/18 10:00 Blood Pressure 157/81 09/26/18 10:00 O2 Sat by Pulse Oximetry (%) 96 09/25/18 22:00 Constitutional: Yes: Calm Cardiovascular: Yes: Pulse Irregular, S1, S2 Respiratory: Yes: Diminished Gastrointestinal: Yes: Normal Bowel Sounds, Soft Labs: CBC, BMP 09/24/18 06:00 09/24/18 06:00 INR, PTT INR 2.14 (0.83-1.09) H 09/23/18 09:15 Problem List - Problems (1) CHF (congestive heart failure) Assessment/Plan: iv lasix check bmp Code(s): I50.9 - HEART FAILURE, UNSPECIFIED (2) Cellulitis Assessment/Plan: iv abx per ID Code(s): L03.90 - CELLULITIS, UNSPECIFIED (3) Atrial fibrillation Assessment/Plan: metoprolol and xarelto Code(s): I48.91 - UNSPECIFIED ATRIAL FIBRILLATION (4) Diabetes mellitus Assessment/Plan: insulin and amaryl Code(s): E11.9 - TYPE 2 DIABETES MELLITUS WITHOUT COMPLICATIONS Qualifiers: Diabetes mellitus type: type 2
[2018-09-26 13:28] LABS: ALBUMIN 2.1 g/dl (3.4-5.0); ALK PHOS 142 U/L (45-117); ANION GAP 6 MMOL/L (8-16); BILIRUBIN,TOTAL 2.1 mg/dL (0.2-1); BLOOD UREA NITROGEN 24 mg/dL (7-18); CALCIUM 7.9 mg/dL (8.5-10.1); CHLORIDE 102 mmol/L (98-107); CO2 30 mmol/L (21-32); CREATININE 1.1 mg/dL (0.55-1.3); GLUCOSE,RANDOM 156 mg/dL (74-106); POTASSIUM 3.8 mmol/L (3.5-5.1); SGOT/AST 22 U/L (15-37); SGPT/ALT 35 U/L (13-61); SODIUM 138 mmol/L (136-145); TOT PROT 5.7 g/dl (6.4-8.2)
--- NOTE | 2018-09-26 14:24 | PN ---
Progress Note (short form) - Note Progress Note: PULMONARY Breathing about the same. Still with dyspnea on exertion. Leg swelling better with stockings. Vital Signs Period Temp Pulse Resp BP Sys/Cohen Pulse Ox Last 24 Hr 98.0 F-98.7 F 77-82 20-20 145-162/81-92 96 Intake & Output 09/23/18 09/24/18 09/25/18 09/26/18 23:59 23:59 23:59 23:59 Intake Total 570 1440 940 520 Output Total 1100 1950 1650 1100 Balance -530 -510 -710 -580 Weight 92.351 kg 92.351 kg 90.945 kg 90.628 kg Gen: NAD in chair Heart: RRR Lung: decreased breath sounds at the bases Abd: soft, nontender Ext: compression stockings in place CBC, BMP 09/24/18 06:00 09/26/18 12:51 Active Medications Acetaminophen (Tylenol -) 650 mg PO Q6H PRN PRN Reason: PAIN OR FEVER Albuterol/Ipratropium (Duoneb -) 1 amp NEB Q6H PRN PRN Reason: SHORTNESS OF BREATH Last Admin: 09/26/18 07:25 Dose: 1 amp Aspirin (Ecotrin -) 81 mg PO DAILY [facility] Last Admin: 09/26/18 10:17 Dose: 81 mg Atorvastatin Calcium (Lipitor -) 20 mg PO HS [facility] Last Admin: 09/25/18 21:24 Dose: 20 mg Digoxin (Lanoxin -) 0.125 mg PO DAILY [facility] Last Admin: 09/26/18 10:17 Dose: 0.125 mg Furosemide (Lasix Injection -) 40 mg IVPUSH DAILY [facility] Last Admin: 09/26/18 10:17 Dose: 40 mg Gabapentin (Neurontin -) 300 mg PO BID [facility] Last Admin: 09/26/18 10:17 Dose: 300 mg Glimepiride (Amaryl -) 4 mg PO DAILY@0700 [facility] Last Admin: 09/26/18 06:18 Dose: 4 mg Ceftriaxone Sodium 2 gm/ (Dextrose) 100 mls @ 200 mls/hr IVPB DAILY [facility]; Protocol Last Admin: 09/26/18 10:15 Dose: 200 mls/hr Vancomycin HCl (Vancomycin (Pre-Docked)) 1,000 mg in 250 mls @ 166.667 mls/hr IVPB Q12H [facility]; Protocol Last Admin: 09/26/18 12:02 Dose: 166.667 mls/hr Insulin Aspart (Novolog Vial Sliding Scale -) 1 vial SQ ACHS [facility]; Protocol Last Admin: 09/26/18 12:01 Dose: 2 units Insulin Detemir (Levemir Vial) 30 units SQ HS [facility] Last Admin: 09/25/18 21:24 Dose: 30 units Isosorbide Mononitrate (Imdur -) 30 mg PO DAILY [facility] Last Admin: 09/26/18 10:18 Dose: 30 mg Metoprolol Succinate (Toprol Xl -) 100 mg PO DAILY [facility] Last Admin: 09/26/18 10:17 Dose: 100 mg Potassium Chloride (K-Dur -) 10 meq PO DAILY [facility] Last Admin: 09/26/18 10:18 Dose: 10 meq Rivaroxaban (Xarelto -) 20 mg PO DAILY@1800 [facility] Last Admin: 09/25/18 18:09 Dose: 20 mg Sacubitril/Valsartan (Entresto 49 Mg-51 Mg Tablet) 1 tab PO BID [facility] Last Admin: 09/26/18 10:18 Dose: 1 tab Tamsulosin HCl (Flomax -) 0.4 mg PO DAILY@0830 [facility] Last Admin: 09/26/18 08:30 Dose: 0.4 mg Tramadol HCl (Ultram -) 50 mg PO Q6H PRN PRN Reason: PAIN LEVEL 7 - 10 Last Admin: 09/26/18 10:35 Dose: 50 mg A/P Acute on Chronic Systolic Heart Failure COPD Cellulitis CAD Atrial Fibrillation +Troponins likely Demand Ischemia DM Hyperlipidemia - continue lasix - monitor urine output, creatinine - daily weights - inhaled bronchodilators - O2 to keep Spo2 >90% - rate control - continue anticoagulation
[2018-09-26] MEDS: RIVAROXABAN 20 MG TABLET PO SCH (17:56)
[2018-09-26] MEDS: ATORVASTATIN CA 20 MG TABLET (FP) PO SCH (21:04)
[2018-09-26] MEDS: INSULIN (LEVEMIR) 100 UNITS/ML UNITS SQ SCH (21:05)
[2018-09-27] MEDS: traMADol HCL 50 MG TABLET PO PRN ×2 (05:54→15:00)
[2018-09-27] MEDS: INSULIN SLIDING SCALE (NOVOLOG) 1 VIAL SQ SCH ×4 (06:02→21:13)
[2018-09-27] MEDS ORDERED: PT OWN MED DRAWER 7, Y5N ONE ×2 (06:24→09:55)
[2018-09-27] MEDS: GLIMEPIRIDE 4 MG TABLET (FP) PO SCH (06:38)
[2018-09-27] MEDS: ALBUTEROL SO4 2.5/IPRATROPIUM 0.5 INH SOL 3 ML VIAL.NEB. NEB PRN (08:19)
[2018-09-27] MEDS ORDERED: DEXTROSE 5%-WATER 100 ML IVPB ONE (09:53)
[2018-09-27] MEDS: VANCOMYCIN 1 GRAM (PRE-DOCKED) 1,000 MG/250 ML BAG IVPB SCH ×2 (10:02→21:14)
[2018-09-27] MEDS: CEFTRIAXONE 2 GM in DEXTROSE 5%-WATER 100 ML IVPB SCH (10:02)
[2018-09-27] MEDS: FUROSEMIDE 40 MG/4 ML INJECTABLE VIAL IVPUSH SCH (10:02)
[2018-09-27] MEDS: POTASSIUM CHLORIDE TABS 10 MEQ TABLET.ER (FP) PO SCH (10:02)
[2018-09-27] MEDS: DIGOXIN 0.125 MG TABLET (FP) PO SCH (10:03)
[2018-09-27] MEDS: ISOSORBIDE MONONITRATE 30 MG TAB.SR.24H (FP) PO SCH (10:03)
[2018-09-27] MEDS: GABAPENTIN 300 MG CAPSULE (FP) PO SCH ×2 (10:03→21:12)
[2018-09-27] MEDS: TAMSULOSIN HCL 0.4 MG CAP PO SCH (10:03)
[2018-09-27] MEDS: ASPIRIN COATED 81 MG TABLET.EC PO SCH (10:03)
[2018-09-27] MEDS: SACUBITRIL/VALSARTAN 49 MG-51 MG TABLET PO SCH ×2 (10:03→21:10)
--- NOTE | 2018-09-27 12:14 | PN ---
Progress Note, Physician - Current Medication List Current Medications: Active Medications Acetaminophen (Tylenol -) 650 mg PO Q6H PRN PRN Reason: PAIN OR FEVER Albuterol/Ipratropium (Duoneb -) 1 amp NEB Q6H PRN PRN Reason: SHORTNESS OF BREATH Last Admin: 09/27/18 08:19 Dose: 1 amp Aspirin (Ecotrin -) 81 mg PO DAILY [facility] Last Admin: 09/27/18 10:03 Dose: 81 mg Atorvastatin Calcium (Lipitor -) 20 mg PO HS [facility] Last Admin: 09/26/18 21:04 Dose: 20 mg Digoxin (Lanoxin -) 0.125 mg PO DAILY [facility] Last Admin: 09/27/18 10:03 Dose: 0.125 mg Furosemide (Lasix Injection -) 40 mg IVPUSH DAILY [facility] Last Admin: 09/27/18 10:02 Dose: 40 mg Gabapentin (Neurontin -) 300 mg PO BID [facility] Last Admin: 09/27/18 10:03 Dose: 300 mg Glimepiride (Amaryl -) 4 mg PO DAILY@0700 [facility] Last Admin: 09/27/18 06:38 Dose: 4 mg Ceftriaxone Sodium 2 gm/ (Dextrose) 100 mls @ 200 mls/hr IVPB DAILY [facility]; Protocol Last Admin: 09/27/18 10:02 Dose: 200 mls/hr Vancomycin HCl (Vancomycin (Pre-Docked)) 1,000 mg in 250 mls @ 166.667 mls/hr IVPB Q12H [facility]; Protocol Last Admin: 09/27/18 10:02 Dose: 166.667 mls/hr Insulin Aspart (Novolog Vial Sliding Scale -) 1 vial SQ [facility]; Protocol Last Admin: 09/27/18 11:20 Dose: 2 units Insulin Detemir (Levemir Vial) [address] [facility] Last Admin: 09/26/18 21:05 Dose: 30 units Isosorbide Mononitrate (Imdur -) 30 mg PO DAILY [facility] Last Admin: 09/27/18 10:03 Dose: 30 mg Metoprolol Succinate (Toprol Xl -) 100 mg PO DAILY [facility] Last Admin: 09/27/18 10:02 Dose: 100 mg Potassium Chloride (K-Dur -) 10 meq PO DAILY [facility] Last Admin: 09/27/18 10:02 Dose: 10 meq Rivaroxaban (Xarelto -) 20 mg PO DAILY@1800 [facility] Last Admin: 09/26/18 17:56 Dose: 20 mg Sacubitril/Valsartan (Entresto 49 Mg-51 Mg Tablet) 1 tab PO BID [facility] Last Admin: 09/27/18 10:03 Dose: 1 tab Tamsulosin HCl (Flomax -) 0.4 mg PO DAILY@0830 [facility] Last Admin: 09/27/18 10:03 Dose: 0.4 mg Tramadol HCl (Ultram -) 50 mg PO Q6H PRN PRN Reason: PAIN LEVEL 7 - 10 Last Admin: 09/27/18 05:54 Dose: 50 mg - Objective Vital Signs: Vital Signs Temperature 98.3 F 09/27/18 09:00 Pulse Rate 80 09/27/18 10:03 Respiratory Rate 18 09/27/18 09:00 Blood Pressure 152/87 09/27/18 09:00 O2 Sat by Pulse Oximetry (%) 96 09/26/18 21:00 Cardiovascular: Yes: S1, S2 Respiratory: Yes: Regular, CTA Bilaterally Gastrointestinal: Yes: Normal Bowel Sounds, Soft Extremities: Yes: Erythema Edema: Yes Integumentary: Yes: Venous Stasis Changes Labs: CBC, BMP 09/24/18 06:00 09/26/18 12:51 INR, PTT INR 2.14 (0.83-1.09) H 09/23/18 09:15 Problem List - Problems (1) CHF (congestive heart failure) Assessment/Plan: -IV LASIX -CARDIO ON BOARD -FOLLOW LABS Code(s): I50.9 - HEART FAILURE, UNSPECIFIED (2) Atrial fibrillation Assessment/Plan: -RATE CONTROLLED -ON XARELTO Code(s): I48.91 - UNSPECIFIED ATRIAL FIBRILLATION (3) Cellulitis Assessment/Plan: -IV ABX Code(s): L03.90 - CELLULITIS, UNSPECIFIED
[2018-09-27 13:10] LABS: BASO % 0.7 % (0-2.0); EOS % 1.8 % (0-4.5); HEMATOCRIT 37.3 % (35.4-49); HEMOGLOBIN 11.7 GM/dL (11.7-16.9); LYMPH % 18.6 % (8-40); MCH 25.3 pg (25.7-33.7); MCHC 31.2 g/dl (32.0-35.9); MEAN CELL VOLUME 81.2 fl (80-96); MEAN PLT VOLUME 8.6 fl (7.5-11.1); MONO % 8.2 % (3.8-10.2); NEUT % 70.7 % (42.8-82.8); PLATELET COUNT 496 K/MM3 (134-434); WHITE BLOOD COUNT 10.1 K/mm3 (4.0-10.0)
--- NOTE | 2018-09-27 13:18 | PN ---
Progress Note, Physician History of Present Illness: pulmonary alert,no distress,sob improving - Current Medication List Current Medications: Active Medications Acetaminophen (Tylenol -) 650 mg PO Q6H PRN PRN Reason: PAIN OR FEVER Albuterol/Ipratropium (Duoneb -) 1 amp NEB Q6H PRN PRN Reason: SHORTNESS OF BREATH Last Admin: 09/27/18 08:19 Dose: 1 amp Aspirin (Ecotrin -) 81 mg PO DAILY [facility] Last Admin: 09/27/18 10:03 Dose: 81 mg Atorvastatin Calcium (Lipitor -) 20 mg PO HS [facility] Last Admin: 09/26/18 21:04 Dose: 20 mg Digoxin (Lanoxin -) 0.125 mg PO DAILY [facility] Last Admin: 09/27/18 10:03 Dose: 0.125 mg Furosemide (Lasix Injection -) 40 mg IVPUSH DAILY [facility] Last Admin: 09/27/18 10:02 Dose: 40 mg Gabapentin (Neurontin -) 300 mg PO BID [facility] Last Admin: 09/27/18 10:03 Dose: 300 mg Glimepiride (Amaryl -) 4 mg PO DAILY@0700 [facility] Last Admin: 09/27/18 06:38 Dose: 4 mg Ceftriaxone Sodium 2 gm/ (Dextrose) 100 mls @ 200 mls/hr IVPB DAILY [facility]; Protocol Last Admin: 09/27/18 10:02 Dose: 200 mls/hr Vancomycin HCl (Vancomycin (Pre-Docked)) 1,000 mg in 250 mls @ 166.667 mls/hr IVPB Q12H [facility]; Protocol Last Admin: 09/27/18 10:02 Dose: 166.667 mls/hr Insulin Aspart (Novolog Vial Sliding Scale -) 1 vial SQ ACHS [facility]; Protocol Last Admin: 09/27/18 11:20 Dose: 2 units Insulin Detemir (Levemir Vial) 30 units SQ HS [facility] Last Admin: 09/26/18 21:05 Dose: 30 units Isosorbide Mononitrate (Imdur -) 30 mg PO DAILY [facility] Last Admin: 09/27/18 10:03 Dose: 30 mg Metoprolol Succinate (Toprol Xl -) 100 mg PO DAILY [facility] Last Admin: 09/27/18 10:02 Dose: 100 mg Potassium Chloride (K-Dur -) 10 meq PO DAILY [facility] Last Admin: 09/27/18 10:02 Dose: 10 meq Rivaroxaban (Xarelto -) 20 mg PO DAILY@1800 [facility] Last Admin: 09/26/18 17:56 Dose: 20 mg Sacubitril/Valsartan (Entresto 49 Mg-51 Mg Tablet) 1 tab PO BID [facility] Last Admin: 09/27/18 10:03 Dose: 1 tab Tamsulosin HCl (Flomax -) 0.4 mg PO DAILY@0830 [facility] Last Admin: 09/27/18 10:03 Dose: 0.4 mg Tramadol HCl (Ultram -) 50 mg PO Q6H PRN PRN Reason: PAIN LEVEL 7 - 10 Last Admin: 09/27/18 05:54 Dose: 50 mg - Objective Vital Signs: Vital Signs Temperature 98.3 F 09/27/18 09:00 Pulse Rate 80 09/27/18 10:03 Respiratory Rate 18 09/27/18 09:00 Blood Pressure 152/87 09/27/18 09:00 O2 Sat by Pulse Oximetry (%) 96 09/26/18 21:00 Constitutional: Yes: Well Nourished, Calm Eyes: Yes: WNL HENT: Yes: WNL Neck: Yes: WNL Cardiovascular: Yes: Pulse Irregular, S1, S2 Respiratory: Yes: Diminished Gastrointestinal: Yes: Normal Bowel Sounds, Soft Extremities: Yes: WNL Edema: Yes Labs: INR, PTT Problem List - Problems (1) Troponin I above reference range Code(s): R74.8 - ABNORMAL LEVELS OF OTHER SERUM ENZYMES (2) CHF (congestive heart failure) Code(s): I50.9 - HEART FAILURE, UNSPECIFIED (3) COPD (chronic obstructive pulmonary disease) Code(s): J44.9 - CHRONIC OBSTRUCTIVE PULMONARY DISEASE, UNSPECIFIED (4) Elevated troponin Code(s): R74.8 - ABNORMAL LEVELS OF OTHER SERUM ENZYMES (5) Pneumonia Code(s): J18.9 - PNEUMONIA, UNSPECIFIED ORGANISM Qualifiers: (6) Acute on chronic systolic heart failure Code(s): I50.23 - ACUTE ON CHRONIC SYSTOLIC (CONGESTIVE) HEART FAILURE (7) Atrial fibrillation Code(s): I48.91 - UNSPECIFIED ATRIAL FIBRILLATION (8) CAD S/P percutaneous coronary angioplasty Code(s): I25.10 - ATHSCL HEART DISEASE OF [place] CORONARY ARTERY W/O ANG PCTRS; Z98.61 - CORONARY ANGIOPLASTY STATUS (9) Cellulitis Code(s): L03.90 - CELLULITIS, UNSPECIFIED (10) Cough Code(s): R05 - COUGH (11) Diabetes mellitus Code(s): E11.9 - TYPE 2 DIABETES MELLITUS WITHOUT COMPLICATIONS Qualifiers: Diabetes mellitus type: type 2 (12) H/O heart artery stent Code(s): Z95.5 - PRESENCE OF CORONARY ANGIOPLASTY IMPLANT AND GRAFT (13) Hematuria Code(s): R31.9 - HEMATURIA, UNSPECIFIED Qualifiers: Hematuria type: unspecified type Qualified Code(s): R31.9 - Hematuria, unspecified Assessment/Plan IMP DYSPNEA ACUTE ON CHRONIC CHF BILATERAL LOWER EXT CELLULITIS COPD COUGH,CONGESTION R/O PNEUMONIA ASHD S/P IL,S/P STENT AFIB S/P ABLATION DM HLD + TROPONIN PLAN IV LASIX INHALED BRONCHODILATORS ABX PER ID DAILY WT DR GOMEZ Problem List - Problems (1) Troponin I above reference range Code(s): R74.8 - ABNORMAL LEVELS OF OTHER SERUM ENZYMES (2) CHF (congestive heart failure) Code(s): I50.9 - HEART FAILURE, UNSPECIFIED (3) COPD (chronic obstructive pulmonary disease) Code(s): J44.9 - CHRONIC OBSTRUCTIVE PULMONARY DISEASE, UNSPECIFIED (4) Elevated troponin Code(s): R74.8 - ABNORMAL LEVELS OF OTHER SERUM ENZYMES (5) Pneumonia Code(s): J18.9 - PNEUMONIA, UNSPECIFIED ORGANISM Qualifiers: (6) Acute on chronic systolic heart failure Code(s): I50.23 - ACUTE ON CHRONIC SYSTOLIC (CONGESTIVE) HEART FAILURE (7) Atrial fibrillation Code(s): I48.91 - UNSPECIFIED ATRIAL FIBRILLATION (8) CAD S/P percutaneous coronary angioplasty Code(s): I25.10 - ATHSCL HEART DISEASE OF [place] CORONARY ARTERY W/O ANG PCTRS; Z98.61 - CORONARY ANGIOPLASTY STATUS (9) Cellulitis Code(s): L03.90 - CELLULITIS, UNSPECIFIED (10) Cough Code(s): R05 - COUGH (11) Diabetes mellitus Code(s): E11.9 - TYPE 2 DIABETES MELLITUS WITHOUT COMPLICATIONS Qualifiers: Diabetes mellitus type: type 2 (12) H/O heart artery stent Code(s): Z95.5 - PRESENCE OF CORONARY ANGIOPLASTY IMPLANT AND GRAFT (13) Hematuria Code(s): R31.9 - HEMATURIA, UNSPECIFIED Qualifiers: Hematuria type: unspecified type Qualified Code(s): R31.9 - Hematuria, unspecified
[2018-09-27 14:23] LABS: ALK PHOS 173 U/L (45-117); ANION GAP 26 MMOL/L (8-16); BILIRUBIN,TOTAL 2.4 mg/dL (0.2-1); BLOOD UREA NITROGEN 24 mg/dL (7-18); CHLORIDE 95 mmol/L (98-107); CO2 13 mmol/L (21-32); CREATININE 1.3 mg/dL (0.55-1.3); GLUCOSE,RANDOM 61 mg/dL (74-106); POTASSIUM 3.4 mmol/L (3.5-5.1); SGOT/AST 30 U/L (15-37); SGPT/ALT 39 U/L (13-61); SODIUM 134 mmol/L (136-145); TOT PROT 6.5 g/dl (6.4-8.2)
[2018-09-27] MEDS: RIVAROXABAN 20 MG TABLET PO SCH (17:30)
[2018-09-27] MEDS: INSULIN (LEVEMIR) 100 UNITS/ML UNITS SQ SCH (21:11)
[2018-09-27] MEDS: ATORVASTATIN CA 20 MG TABLET (FP) PO SCH (21:12)
[2018-09-28] MEDS: traMADol HCL 50 MG TABLET PO PRN ×3 (03:07→23:38)
[2018-09-28] MEDS: INSULIN SLIDING SCALE (NOVOLOG) 1 VIAL SQ SCH ×4 (06:24→21:39)
[2018-09-28] MEDS: ALBUTEROL SO4 2.5/IPRATROPIUM 0.5 INH SOL 3 ML VIAL.NEB. NEB PRN (06:46)
[2018-09-28] MEDS: GLIMEPIRIDE 4 MG TABLET (FP) PO SCH (08:30)
[2018-09-28] MEDS: TAMSULOSIN HCL 0.4 MG CAP PO SCH (08:33)
[2018-09-28] MEDS ORDERED: DEXTROSE 5%-WATER 100 ML IVPB ONE (09:27)
[2018-09-28] MEDS ORDERED: PT OWN MED DRAWER 7, Y5N ONE ×2 (09:28→21:21)
[2018-09-28] MEDS: VANCOMYCIN 1 GRAM (PRE-DOCKED) 1,000 MG/250 ML BAG IVPB SCH ×2 (09:39→21:34)
[2018-09-28] MEDS: FUROSEMIDE 40 MG/4 ML INJECTABLE VIAL IVPUSH SCH (09:39)
[2018-09-28] MEDS: CEFTRIAXONE 2 GM in DEXTROSE 5%-WATER 100 ML IVPB SCH (09:40)
[2018-09-28] MEDS: DIGOXIN 0.125 MG TABLET (FP) PO SCH (09:41)
[2018-09-28] MEDS: ISOSORBIDE MONONITRATE 30 MG TAB.SR.24H (FP) PO SCH (09:41)
[2018-09-28] MEDS: GABAPENTIN 300 MG CAPSULE (FP) PO SCH ×2 (09:41→21:34)
[2018-09-28] MEDS: SACUBITRIL/VALSARTAN 49 MG-51 MG TABLET PO SCH ×2 (09:42→21:34)
[2018-09-28] MEDS: POTASSIUM CHLORIDE TABS 10 MEQ TABLET.ER (FP) PO SCH (09:42)
[2018-09-28] MEDS: ASPIRIN COATED 81 MG TABLET.EC PO SCH (09:42)
--- NOTE | 2018-09-28 12:55 | PN ---
Progress Note, Physician - Current Medication List Current Medications: Active Medications Acetaminophen (Tylenol -) 650 mg PO Q6H PRN PRN Reason: PAIN OR FEVER Albuterol/Ipratropium (Duoneb -) 1 amp NEB Q6H PRN PRN Reason: SHORTNESS OF BREATH Last Admin: 09/28/18 06:46 Dose: 1 amp Aspirin (Ecotrin -) 81 mg PO DAILY [facility] Last Admin: 09/28/18 09:42 Dose: 81 mg Atorvastatin Calcium (Lipitor -) 20 mg PO HS [facility] Last Admin: 09/27/18 21:12 Dose: 20 mg Digoxin (Lanoxin -) 0.125 mg PO DAILY [facility] Last Admin: 09/28/18 09:41 Dose: 0.125 mg Furosemide (Lasix Injection -) 40 mg IVPUSH DAILY [facility] Last Admin: 09/28/18 09:39 Dose: 40 mg Gabapentin (Neurontin -) 300 mg PO BID [facility] Last Admin: 09/28/18 09:41 Dose: 300 mg Glimepiride (Amaryl -) 4 mg PO DAILY@0700 [facility] Last Admin: 09/28/18 08:30 Dose: 4 mg Ceftriaxone Sodium 2 gm/ (Dextrose) 100 mls @ 200 mls/hr IVPB DAILY [facility]; Protocol Last Admin: 09/28/18 09:40 Dose: 200 mls/hr Vancomycin HCl (Vancomycin (Pre-Docked)) 1,000 mg in 250 mls @ 166.667 mls/hr IVPB Q12H [facility]; Protocol Last Admin: 09/28/18 09:39 Dose: 166.667 mls/hr Insulin Aspart (Novolog Vial Sliding Scale -) 1 vial SQ [facility]; Protocol Last Admin: 09/28/18 11:59 Dose: 2 units Insulin Detemir (Levemir Vial) 30 units SQ [facility] Last Admin: 09/27/18 21:11 Dose: 30 units Isosorbide Mononitrate (Imdur -) 30 mg PO DAILY [facility] Last Admin: 09/28/18 09:41 Dose: 30 mg Metoprolol Succinate (Toprol Xl -) 100 mg PO DAILY [facility] Last Admin: 09/28/18 09:41 Dose: 100 mg Potassium Chloride (K-Dur -) 10 meq PO DAILY [facility] Last Admin: 09/28/18 09:42 Dose: 10 meq Rivaroxaban (Xarelto -) 20 mg PO DAILY@1800 [facility] Last Admin: 09/27/18 17:30 Dose: 20 mg Sacubitril/Valsartan (Entresto 49 Mg-51 Mg Tablet) 1 tab PO BID [facility] Last Admin: 09/28/18 09:42 Dose: 1 tab Tamsulosin HCl (Flomax -) 0.4 mg PO DAILY@0830 [facility] Last Admin: 09/28/18 08:33 Dose: 0.4 mg Tramadol HCl (Ultram -) 50 mg PO Q6H PRN PRN Reason: PAIN LEVEL 7 - 10 Last Admin: 09/28/18 03:07 Dose: 50 mg - Objective Vital Signs: Vital Signs Temperature 97.6 F 09/28/18 10:00 Pulse Rate 78 09/28/18 10:00 Respiratory Rate 18 09/28/18 10:00 Blood Pressure 115/98 09/28/18 10:00 O2 Sat by Pulse Oximetry (%) 95 09/28/18 09:00 Cardiovascular: Yes: S1, S2 Respiratory: Yes: Regular, CTA Bilaterally Gastrointestinal: Yes: Normal Bowel Sounds, Soft Extremities: Yes: Erythema Edema: Yes Labs: CBC, BMP 09/27/18 13:00 09/27/18 13:00 INR, PTT INR 2.14 (0.83-1.09) H 09/23/18 09:15 Problem List - Problems (1) CHF (congestive heart failure) Assessment/Plan: -IV LASIX -CARDIO ON BOARD -FOLLOW LABS Code(s): I50.9 - HEART FAILURE, UNSPECIFIED (2) Atrial fibrillation Assessment/Plan: -RATE CONTROLLED -ON XARELTO Code(s): I48.91 - UNSPECIFIED ATRIAL FIBRILLATION (3) Cellulitis Assessment/Plan: -IV ABX Code(s): L03.90 - CELLULITIS, UNSPECIFIED
--- NOTE | 2018-09-28 13:47 | PN ---
Progress Note (short form) - Note Progress Note: Resting in NAD. No CP or SOB. No acute events overnight. Intake & Output 09/25/18 09/26/18 09/27/18 09/28/18 23:59 23:59 23:59 23:59 Intake Total 773 404 4138 260 Output Total 1650 1100 480 300 Balance -710 -210 1710 -40 Weight 200 lb 8 oz 199 lb 12.8 oz 199 lb 12.8 oz 200 lb Last Vital Signs Temp Pulse Resp BP Pulse Ox 97.6 F 78 18 115/98 95 09/28/18 10:00 09/28/18 10:00 09/28/18 10:00 09/28/18 10:00 09/28/18 09:00 Active Medications Acetaminophen (Tylenol -) 650 mg PO Q6H PRN PRN Reason: PAIN OR FEVER Albuterol/Ipratropium (Duoneb -) 1 amp NEB Q6H PRN PRN Reason: SHORTNESS OF BREATH Last Admin: 09/28/18 06:46 Dose: 1 amp Aspirin (Ecotrin -) 81 mg PO DAILY [facility] Last Admin: 09/28/18 09:42 Dose: 81 mg Atorvastatin Calcium (Lipitor -) 20 mg PO HS [facility] Last Admin: 09/27/18 21:12 Dose: 20 mg Digoxin (Lanoxin -) 0.125 mg PO DAILY [facility] Last Admin: 09/28/18 09:41 Dose: 0.125 mg Furosemide (Lasix Injection -) 40 mg IVPUSH DAILY [facility] Last Admin: 09/28/18 09:39 Dose: 40 mg Gabapentin (Neurontin -) 300 mg PO BID [facility] Last Admin: 09/28/18 09:41 Dose: 300 mg Glimepiride (Amaryl -) 4 mg PO DAILY@0700 [facility] Last Admin: 09/28/18 08:30 Dose: 4 mg Ceftriaxone Sodium 2 gm/ (Dextrose) 100 mls @ 200 mls/hr IVPB DAILY [facility]; Protocol Last Admin: 09/28/18 09:40 Dose: 200 mls/hr Vancomycin HCl (Vancomycin (Pre-Docked)) 1,000 mg in 250 mls @ 166.667 mls/hr IVPB Q12H [facility]; Protocol Last Admin: 09/28/18 09:39 Dose: 166.667 mls/hr Insulin Aspart (Novolog Vial Sliding Scale -) 1 vial SQ [facility]; Protocol Last Admin: 09/28/18 11:59 Dose: 2 units Insulin Detemir (Levemir Vial) 30 units SQ [facility] Last Admin: 09/27/18 21:11 Dose: 30 units Isosorbide Mononitrate (Imdur -) 30 mg PO DAILY [facility] Last Admin: 09/28/18 09:41 Dose: 30 mg Metoprolol Succinate (Toprol Xl -) 100 mg PO DAILY [facility] Last Admin: 09/28/18 09:41 Dose: 100 mg Potassium Chloride (K-Dur -) 10 meq PO DAILY [facility] Last Admin: 09/28/18 09:42 Dose: 10 meq Rivaroxaban (Xarelto -) 20 mg PO DAILY@1800 [facility] Last Admin: 09/27/18 17:30 Dose: 20 mg Sacubitril/Valsartan (Entresto 49 Mg-51 Mg Tablet) 1 tab PO BID [facility] Last Admin: 09/28/18 09:42 Dose: 1 tab Tamsulosin HCl (Flomax -) 0.4 mg PO DAILY@0830 [facility] Last Admin: 09/28/18 08:33 Dose: 0.4 mg Tramadol HCl (Ultram -) 50 mg PO Q6H PRN PRN Reason: PAIN LEVEL 7 - 10 Last Admin: 09/28/18 03:07 Dose: 50 mg Constitutional: Yes: NAD Eyes: Yes: WNL HENT: Yes: WNL Neck: Yes: WNL Cardiovascular: Yes: Pulse Irregular, S1, S2 Respiratory: Yes: Diminished Gastrointestinal: Yes: Normal Bowel Sounds, Soft Extremities: Yes: WNL Edema: Yes Labs: Laboratory Results - last 24 hr 09/27/18 09/27/18 09/27/18 13:00 16:58 21:09 Sodium 134 L Potassium 3.4 L Chloride 95 L Carbon Dioxide 13 L Anion Gap 26 H BUN 24 H Creatinine 1.3 Creat Clearance w eGFR 55.58 POC Glucometer 215 369 Random Glucose 61 L Calcium Total Bilirubin 2.4 H AST 30 ALT 39 Alkaline Phosphatase 173 H Total Protein 6.5 Albumin 0.0 L 09/28/18 09/28/18 05:26 11:21 Sodium Potassium Chloride Carbon Dioxide Anion Gap BUN Creatinine Creat Clearance w eGFR POC Glucometer 71 236 Random Glucose Calcium Total Bilirubin AST ALT Alkaline Phosphatase Total Protein Albumin Problem List - Problems (1) Troponin I above reference range Code(s): R74.8 - ABNORMAL LEVELS OF OTHER SERUM ENZYMES (2) CHF (congestive heart failure) Code(s): I50.9 - HEART FAILURE, UNSPECIFIED (3) COPD (chronic obstructive pulmonary disease) Code(s): J44.9 - CHRONIC OBSTRUCTIVE PULMONARY DISEASE, UNSPECIFIED (4) Elevated troponin Code(s): R74.8 - ABNORMAL LEVELS OF OTHER SERUM ENZYMES (5) Pneumonia Code(s): J18.9 - PNEUMONIA, UNSPECIFIED ORGANISM Qualifiers: (6) Acute on chronic systolic heart failure Code(s): I50.23 - ACUTE ON CHRONIC SYSTOLIC (CONGESTIVE) HEART FAILURE (7) Atrial fibrillation Code(s): I48.91 - UNSPECIFIED ATRIAL FIBRILLATION (8) CAD S/P percutaneous coronary angioplasty Code(s): I25.10 - ATHSCL HEART DISEASE OF [place] CORONARY ARTERY W/O ANG PCTRS; Z98.61 - CORONARY ANGIOPLASTY STATUS (9) Cellulitis Code(s): L03.90 - CELLULITIS, UNSPECIFIED (10) Cough Code(s): R05 - COUGH (11) Diabetes mellitus Code(s): E11.9 - TYPE 2 DIABETES MELLITUS WITHOUT COMPLICATIONS Qualifiers: Diabetes mellitus type: type 2 (12) H/O heart artery stent Code(s): Z95.5 - PRESENCE OF CORONARY ANGIOPLASTY IMPLANT AND GRAFT (13) Hematuria Code(s): R31.9 - HEMATURIA, UNSPECIFIED Qualifiers: Hematuria type: unspecified type Qualified Code(s): R31.9 - Hematuria, unspecified Assessment/Plan IMP DYSPNEA ACUTE ON CHRONIC CHF BILATERAL LOWER EXT CELLULITIS COPD COUGH,CONGESTION R/O PNEUMONIA ASHD S/P MT,S/P STENT AFIB S/P ABLATION DM HLD + TROPONIN PLAN IV LASIX INHALED BRONCHODILATORS ABX PER ID DAILY WT DOMINIC Smith
[2018-09-28 15:00] LABS: ANION GAP 10 MMOL/L (8-16); BLOOD UREA NITROGEN 30 mg/dL (7-18); CALCIUM 8.1 mg/dL (8.5-10.1); CHLORIDE 100 mmol/L (98-107); CO2 28 mmol/L (21-32); CREATININE 1.3 mg/dL (0.55-1.3); GLUCOSE,RANDOM 189 mg/dL (74-106); POTASSIUM 3.9 mmol/L (3.5-5.1); SODIUM 138 mmol/L (136-145)
[2018-09-28] MEDS: RIVAROXABAN 20 MG TABLET PO SCH (17:34)
[2018-09-28] MEDS: ATORVASTATIN CA 20 MG TABLET (FP) PO SCH (21:34)
[2018-09-28] MEDS: INSULIN (LEVEMIR) 100 UNITS/ML UNITS SQ SCH (21:39)
[2018-09-29] MEDS: INSULIN SLIDING SCALE (NOVOLOG) 1 VIAL SQ SCH ×4 (06:08→21:27)
[2018-09-29] MEDS: GLIMEPIRIDE 4 MG TABLET (FP) PO SCH (06:08)
[2018-09-29 06:51] LABS: BASO % 0.7 % (0-2.0); EOS % 1.8 % (0-4.5); HEMATOCRIT 32.4 % (35.4-49); HEMOGLOBIN 10.3 GM/dL (11.7-16.9); LYMPH % 17.1 % (8-40); MCH 25.3 pg (25.7-33.7); MCHC 31.9 g/dl (32.0-35.9); MEAN CELL VOLUME 79.3 fl (80-96); MEAN PLT VOLUME 9.1 fl (7.5-11.1); MONO % 12.4 % (3.8-10.2); PLATELET COUNT 415 K/MM3 (134-434); RBC 4.08 M/mm3 (4.00-5.60); RDW 15.9 % (11.9-15.9); WHITE BLOOD COUNT 8.4 K/mm3 (4.0-10.0)
[2018-09-29 08:28] LABS: ALBUMIN 2.2 g/dl (3.4-5.0); ALK PHOS 148 U/L (45-117); ANION GAP 10 MMOL/L (8-16); BILIRUBIN,TOTAL 1.8 mg/dL (0.2-1); BLOOD UREA NITROGEN 31 mg/dL (7-18); CALCIUM 8.3 mg/dL (8.5-10.1); CHLORIDE 100 mmol/L (98-107); CO2 29 mmol/L (21-32); CREATININE 1.4 mg/dL (0.55-1.3); GLUCOSE,RANDOM 292 mg/dL (74-106); POTASSIUM 4.7 mmol/L (3.5-5.1); SGOT/AST 21 U/L (15-37); SGPT/ALT 32 U/L (13-61); SODIUM 139 mmol/L (136-145); TOT PROT 5.7 g/dl (6.4-8.2)
[2018-09-29] MEDS ORDERED: PT OWN MED DRAWER 7, Y5N ONE ×4 (09:53→21:12)
[2018-09-29] MEDS ORDERED: DEXTROSE 5%-WATER 100 ML IVPB ONE (09:54)
[2018-09-29] MEDS: POTASSIUM CHLORIDE TABS 10 MEQ TABLET.ER (FP) PO SCH (10:20)
[2018-09-29] MEDS: TAMSULOSIN HCL 0.4 MG CAP PO SCH (10:21)
[2018-09-29] MEDS: GABAPENTIN 300 MG CAPSULE (FP) PO SCH ×2 (10:21→21:15)
[2018-09-29] MEDS: ASPIRIN COATED 81 MG TABLET.EC PO SCH (10:21)
[2018-09-29] MEDS: DIGOXIN 0.125 MG TABLET (FP) PO SCH (10:21)
[2018-09-29] MEDS: FUROSEMIDE 40 MG/4 ML INJECTABLE VIAL IVPUSH SCH (10:21)
[2018-09-29] MEDS: ISOSORBIDE MONONITRATE 30 MG TAB.SR.24H (FP) PO SCH (10:21)
[2018-09-29] MEDS: CEFTRIAXONE 2 GM in DEXTROSE 5%-WATER 100 ML IVPB SCH (10:22)
[2018-09-29] MEDS: SACUBITRIL/VALSARTAN 49 MG-51 MG TABLET PO SCH ×2 (10:23→21:28)
[2018-09-29] MEDS: VANCOMYCIN 1 GRAM (PRE-DOCKED) 1,000 MG/250 ML BAG IVPB SCH ×2 (10:23→21:15)
[2018-09-29] MEDS: traMADol HCL 50 MG TABLET PO PRN ×2 (12:23→21:30)
--- NOTE | 2018-09-29 13:56 | PN ---
Progress Note, Physician - Current Medication List Current Medications: Active Medications Acetaminophen (Tylenol -) 650 mg PO Q6H PRN PRN Reason: PAIN OR FEVER Aspirin (Ecotrin -) 81 mg PO DAILY [facility] Last Admin: 09/29/18 10:21 Dose: 81 mg Atorvastatin Calcium (Lipitor -) 20 mg PO HS [facility] Last Admin: 09/28/18 21:34 Dose: 20 mg Digoxin (Lanoxin -) 0.125 mg PO DAILY [facility] Last Admin: 09/29/18 10:21 Dose: 0.125 mg Furosemide (Lasix Injection -) 40 mg IVPUSH DAILY [facility] Last Admin: 09/29/18 10:21 Dose: 40 mg Gabapentin (Neurontin -) 300 mg PO BID [facility] Last Admin: 09/29/18 10:21 Dose: 300 mg Glimepiride (Amaryl -) 4 mg PO DAILY@0700 [facility] Last Admin: 09/29/18 06:08 Dose: 4 mg Ceftriaxone Sodium 2 gm/ (Dextrose) 100 mls @ 200 mls/hr IVPB DAILY [facility]; Protocol Last Admin: 09/29/18 10:22 Dose: 200 mls/hr Vancomycin HCl (Vancomycin (Pre-Docked)) 1,000 mg in 250 mls @ 166.667 mls/hr IVPB Q12H [facility]; Protocol Last Admin: 09/29/18 10:23 Dose: 166.667 mls/hr Insulin Aspart (Novolog Vial Sliding Scale -) 1 vial SQ ACHS [facility]; Protocol Last Admin: 09/29/18 12:10 Dose: Not Given Insulin Detemir (Levemir Vial) [address] [facility] Last Admin: 09/28/18 21:39 Dose: 30 units Isosorbide Mononitrate (Imdur -) 30 mg PO DAILY [facility] Last Admin: 09/29/18 10:21 Dose: 30 mg Metoprolol Succinate (Toprol Xl -) 100 mg PO DAILY [facility] Last Admin: 09/29/18 10:21 Dose: 100 mg Potassium Chloride (K-Dur -) 10 meq PO DAILY [facility] Last Admin: 09/29/18 10:20 Dose: 10 meq Rivaroxaban (Xarelto -) 20 mg PO DAILY@1800 [facility] Last Admin: 09/28/18 17:34 Dose: 20 mg Sacubitril/Valsartan (Entresto 49 Mg-51 Mg Tablet) 1 tab PO BID [facility] Last Admin: 09/29/18 10:23 Dose: 1 tab Tamsulosin HCl (Flomax -) 0.4 mg PO DAILY@0830 [facility] Last Admin: 09/29/18 10:21 Dose: 0.4 mg - Objective Vital Signs: Vital Signs Temperature 98.7 F 09/29/18 06:00 Pulse Rate 84 09/29/18 10:21 Respiratory Rate 18 09/29/18 06:00 Blood Pressure 137/71 09/29/18 06:00 O2 Sat by Pulse Oximetry (%) 95 09/28/18 20:54 Cardiovascular: Yes: S1, S2 Respiratory: Yes: Regular, CTA Bilaterally Gastrointestinal: Yes: Normal Bowel Sounds, Soft Extremities: Yes: Erythema Edema: Yes Labs: CBC, BMP 09/29/18 06:30 09/29/18 06:30 INR, PTT INR 2.14 (0.83-1.09) H 09/23/18 09:15 Problem List - Problems (1) CHF (congestive heart failure) Assessment/Plan: -IV LASIX--TO PO -CARDIO ON BOARD -FOLLOW LABS Code(s): I50.9 - HEART FAILURE, UNSPECIFIED (2) Atrial fibrillation Assessment/Plan: -RATE CONTROLLED -ON XARELTO Code(s): I48.91 - UNSPECIFIED ATRIAL FIBRILLATION (3) Cellulitis Assessment/Plan: -IV ABX -Follow labs -Vanco level Code(s): L03.90 - CELLULITIS, UNSPECIFIED (4) Anemia Assessment/Plan: -Monitor -W/U Ordered Code(s): D64.9 - ANEMIA, UNSPECIFIED
--- NOTE | 2018-09-29 14:06 | PN ---
Progress Note (short form) - Note Progress Note: Resting in NAD. No CP or SOB. No acute events overnight. Intake & Output 09/26/18 09/27/18 09/28/18 09/29/18 23:59 23:59 23:59 23:59 Intake Total 890 2190 1060 Output Total 1100 480 750 Balance -210 1710 310 Weight 199 lb 12.8 oz 199 lb 12.8 oz 200 lb 201 lb Last Vital Signs Temp Pulse Resp BP Pulse Ox 98.7 F 84 18 137/71 95 09/29/18 06:00 09/29/18 10:21 09/29/18 06:00 09/29/18 06:00 09/28/18 20:54 Active Medications Acetaminophen (Tylenol -) 650 mg PO Q6H PRN PRN Reason: PAIN OR FEVER Albuterol/Ipratropium (Duoneb -) 1 amp NEB RQID [facility] Aspirin (Ecotrin -) 81 mg PO DAILY [facility] Last Admin: 09/29/18 10:21 Dose: 81 mg Atorvastatin Calcium (Lipitor -) 20 mg PO HS [facility] Last Admin: 09/28/18 21:34 Dose: 20 mg Digoxin (Lanoxin -) 0.125 mg PO DAILY [facility] Last Admin: 09/29/18 10:21 Dose: 0.125 mg Gabapentin (Neurontin -) 300 mg PO BID [facility] Last Admin: 09/29/18 10:21 Dose: 300 mg Glimepiride (Amaryl -) 4 mg PO DAILY@0700 [facility] Last Admin: 09/29/18 06:08 Dose: 4 mg Ceftriaxone Sodium 2 gm/ (Dextrose) 100 mls @ 200 mls/hr IVPB DAILY [facility]; Protocol Last Admin: 09/29/18 10:22 Dose: 200 mls/hr Vancomycin HCl (Vancomycin (Pre-Docked)) 1,000 mg in 250 mls @ 166.667 mls/hr IVPB Q12H [facility]; Protocol Last Admin: 09/29/18 10:23 Dose: 166.667 mls/hr Insulin Aspart (Novolog Vial Sliding Scale -) 1 vial SQ ACHS [facility]; Protocol Last Admin: 09/29/18 12:10 Dose: Not Given Insulin Detemir (Levemir Vial) 30 units SQ [facility] Last Admin: 09/28/18 21:39 Dose: 30 units Isosorbide Mononitrate (Imdur -) 30 mg PO DAILY [facility] Last Admin: 09/29/18 10:21 Dose: 30 mg Metoprolol Succinate (Toprol Xl -) 100 mg PO DAILY [facility] Last Admin: 09/29/18 10:21 Dose: 100 mg Potassium Chloride (K-Dur -) 10 meq PO DAILY [facility] Last Admin: 09/29/18 10:20 Dose: 10 meq Rivaroxaban (Xarelto -) 20 mg PO DAILY@1800 [facility] Last Admin: 09/28/18 17:34 Dose: 20 mg Sacubitril/Valsartan (Entresto 49 Mg-51 Mg Tablet) 1 tab PO BID [facility] Last Admin: 09/29/18 10:23 Dose: 1 tab Tamsulosin HCl (Flomax -) 0.4 mg PO DAILY@0830 [facility] Last Admin: 09/29/18 10:21 Dose: 0.4 mg Tramadol HCl (Ultram -) 50 mg PO Q8H PRN PRN Reason: PAIN LEVEL 6-10 Constitutional: Yes: NAD Eyes: Yes: WNL HENT: Yes: WNL Neck: Yes: WNL Cardiovascular: Yes: Pulse Irregular, S1, S2 Respiratory: Yes: Diminished Gastrointestinal: Yes: Normal Bowel Sounds, Soft Extremities: Yes: WNL Edema: Yes Labs: Laboratory Results - last 24 hr 09/28/18 09/28/18 09/28/18 13:45 16:58 21:25 WBC RBC Hgb Hct MCV MCH MCHC RDW Plt Count MPV Absolute Neuts (auto) Neutrophils % Lymphocytes % Monocytes % Eosinophils % Basophils % Nucleated RBC % Sodium 138 Potassium 3.9 Chloride 100 Carbon Dioxide 28 Anion Gap 10 BUN 30 H Creatinine 1.3 Creat Clearance w eGFR 55.58 POC Glucometer 191 289 Random Glucose 189 H Calcium 8.1 L Total Bilirubin AST ALT Alkaline Phosphatase Total Protein Albumin 09/29/18 09/29/18 09/29/18 05:14 06:30 06:30 WBC 8.4 RBC 4.08 Hgb 10.3 L Hct 32.4 L MCV 79.3 L MCH 25.3 L MCHC 31.9 L RDW 15.9 Plt Count 415 MPV 9.1 Absolute Neuts (auto) 5.7 Neutrophils % 68.0 Lymphocytes % 17.1 Monocytes % 12.4 H Eosinophils % 1.8 Basophils % 0.7 Nucleated RBC % 0 Sodium 139 Potassium 4.7 Chloride 100 Carbon Dioxide 29 Anion Gap 10 BUN 31 H Creatinine 1.4 H Creat Clearance w eGFR 51.02 POC Glucometer 334 Random Glucose 292 H Calcium 8.3 L Total Bilirubin 1.8 H AST 21 ALT 32 Alkaline Phosphatase 148 H Total Protein 5.7 L Albumin 2.2 L 09/29/18 11:27 WBC RBC Hgb Hct MCV MCH MCHC RDW Plt Count MPV Absolute Neuts (auto) Neutrophils % Lymphocytes % Monocytes % Eosinophils % Basophils % Nucleated RBC % Sodium Potassium Chloride Carbon Dioxide Anion Gap BUN Creatinine Creat Clearance w eGFR POC Glucometer 154 Random Glucose Calcium Total Bilirubin AST ALT Alkaline Phosphatase Total Protein Albumin Problem List - Problems (1) Troponin I above reference range Code(s): R74.8 - ABNORMAL LEVELS OF OTHER SERUM ENZYMES (2) CHF (congestive heart failure) Code(s): I50.9 - HEART FAILURE, UNSPECIFIED (3) COPD (chronic obstructive pulmonary disease) Code(s): J44.9 - CHRONIC OBSTRUCTIVE PULMONARY DISEASE, UNSPECIFIED (4) Elevated troponin Code(s): R74.8 - ABNORMAL LEVELS OF OTHER SERUM ENZYMES (5) Pneumonia Code(s): J18.9 - PNEUMONIA, UNSPECIFIED ORGANISM Qualifiers: (6) Acute on chronic systolic heart failure Code(s): I50.23 - ACUTE ON CHRONIC SYSTOLIC (CONGESTIVE) HEART FAILURE (7) Atrial fibrillation Code(s): I48.91 - UNSPECIFIED ATRIAL FIBRILLATION (8) CAD S/P percutaneous coronary angioplasty Code(s): I25.10 - ATHSCL HEART DISEASE OF [place] CORONARY ARTERY W/O ANG PCTRS; Z98.61 - CORONARY ANGIOPLASTY STATUS (9) Cellulitis Code(s): L03.90 - CELLULITIS, UNSPECIFIED (10) Cough Code(s): R05 - COUGH (11) Diabetes mellitus Code(s): E11.9 - TYPE 2 DIABETES MELLITUS WITHOUT COMPLICATIONS Qualifiers: Diabetes mellitus type: type 2 (12) H/O heart artery stent Code(s): Z95.5 - PRESENCE OF CORONARY ANGIOPLASTY IMPLANT AND GRAFT (13) Hematuria Code(s): R31.9 - HEMATURIA, UNSPECIFIED Qualifiers: Hematuria type: unspecified type Qualified Code(s): R31.9 - Hematuria, unspecified Assessment/Plan IMP DYSPNEA ACUTE ON CHRONIC CHF BILATERAL LOWER EXT CELLULITIS COPD COUGH,CONGESTION R/O PNEUMONIA ASHD S/P [place],S/P STENT AFIB S/P ABLATION DM HLD + TROPONIN PLAN IV LASIX INHALED BRONCHODILATORS ABX PER ID DAILY WT XARELJUANA Smith
[2018-09-29] MEDS: ALBUTEROL SO4 2.5/IPRATROPIUM 0.5 INH SOL 3 ML VIAL.NEB. NEB SCH ×2 (16:08→20:31)
[2018-09-29] MEDS: RIVAROXABAN 20 MG TABLET PO SCH (17:52)
[2018-09-29] MEDS: ATORVASTATIN CA 20 MG TABLET (FP) PO SCH (21:15)
[2018-09-29] MEDS: INSULIN (LEVEMIR) 100 UNITS/ML UNITS SQ SCH (21:27)
[2018-09-30] MEDS ORDERED: PT OWN MED DRAWER 7, Y5N ONE ×4 (05:47→20:12)
[2018-09-30] MEDS: INSULIN SLIDING SCALE (NOVOLOG) 1 VIAL SQ SCH ×4 (06:10→22:11)
[2018-09-30] MEDS: GLIMEPIRIDE 4 MG TABLET (FP) PO SCH (06:10)
[2018-09-30] MEDS: traMADol HCL 50 MG TABLET PO PRN ×2 (06:11→16:30)
[2018-09-30 06:56] LABS: BASO % 0.6 % (0-2.0); EOS % 1.9 % (0-4.5); HEMATOCRIT 30.2 % (35.4-49); HEMOGLOBIN 9.6 GM/dL (11.7-16.9); LYMPH % 16.8 % (8-40); MCH 24.8 pg (25.7-33.7); MCHC 31.7 g/dl (32.0-35.9); MEAN CELL VOLUME 78.4 fl (80-96); MONO % 10.8 % (3.8-10.2); NEUT % 69.9 % (42.8-82.8); PLATELET COUNT 392 K/MM3 (134-434); RBC 3.85 M/mm3 (4.00-5.60); RDW 15.4 % (11.9-15.9); WHITE BLOOD COUNT 7.8 K/mm3 (4.0-10.0)
[2018-09-30] MEDS: ALBUTEROL SO4 2.5/IPRATROPIUM 0.5 INH SOL 3 ML VIAL.NEB. NEB SCH ×4 (07:30→20:46)
[2018-09-30 08:12] LABS: ALK PHOS 147 U/L (45-117); ANION GAP 7 MMOL/L (8-16); BILIRUBIN,TOTAL 1.9 mg/dL (0.2-1); BLOOD UREA NITROGEN 28 mg/dL (7-18); CALCIUM 7.8 mg/dL (8.5-10.1); CHLORIDE 103 mmol/L (98-107); CO2 27 mmol/L (21-32); CREATININE 1.3 mg/dL (0.55-1.3); GLUCOSE,RANDOM 142 mg/dL (74-106); POTASSIUM 4.2 mmol/L (3.5-5.1); SGOT/AST 25 U/L (15-37); SGPT/ALT 37 U/L (13-61); SODIUM 137 mmol/L (136-145); TOT PROT 5.7 g/dl (6.4-8.2)
[2018-09-30] MEDS ORDERED: DEXTROSE 5%-WATER 100 ML IVPB ONE (09:20)
[2018-09-30] MEDS: TAMSULOSIN HCL 0.4 MG CAP PO SCH (09:25)
[2018-09-30] MEDS: ASPIRIN COATED 81 MG TABLET.EC PO SCH (09:25)
[2018-09-30] MEDS: DIGOXIN 0.125 MG TABLET (FP) PO SCH (09:26)
[2018-09-30] MEDS: POTASSIUM CHLORIDE TABS 10 MEQ TABLET.ER (FP) PO SCH (09:26)
[2018-09-30] MEDS: ISOSORBIDE MONONITRATE 30 MG TAB.SR.24H (FP) PO SCH (09:26)
[2018-09-30] MEDS: GABAPENTIN 300 MG CAPSULE (FP) PO SCH ×2 (09:26→21:20)
[2018-09-30] MEDS: VANCOMYCIN 1 GRAM (PRE-DOCKED) 1,000 MG/250 ML BAG IVPB SCH ×2 (09:27→21:20)
[2018-09-30] MEDS: CEFTRIAXONE 2 GM in DEXTROSE 5%-WATER 100 ML IVPB SCH (09:27)
[2018-09-30] MEDS: SACUBITRIL/VALSARTAN 49 MG-51 MG TABLET PO SCH ×2 (09:28→21:20)
--- NOTE | 2018-09-30 10:38 | PN ---
Progress Note, Physician Chief Complaint: AWAKE ALERT LEGS SWELLING WITH INFECTIONS EVENTS AND NOTES REVIEWED - Current Medication List Current Medications: Active Medications Acetaminophen (Tylenol -) 650 mg PO Q6H PRN PRN Reason: PAIN OR FEVER Albuterol/Ipratropium (Duoneb -) 1 amp NEB RQID [facility]PL[facility] BY [facility] Last Admin: 09/30/18 07:30 Dose: Not Given Aspirin (Ecotrin -) 81 mg PO DAILY [facility] Last Admin: 09/30/18 09:25 Dose: 81 mg Atorvastatin Calcium (Lipitor -) 20 mg PO HS [facility] Last Admin: 09/29/18 21:15 Dose: 20 mg Digoxin (Lanoxin -) 0.125 mg PO DAILY [facility] Last Admin: 09/30/18 09:26 Dose: 0.125 mg Gabapentin (Neurontin -) 300 mg PO BID [facility] Last Admin: 09/30/18 09:26 Dose: 300 mg Glimepiride (Amaryl -) 4 mg PO DAILY@0700 [facility] Last Admin: 09/30/18 06:10 Dose: 4 mg Ceftriaxone Sodium 2 gm/ (Dextrose) 100 mls @ 200 mls/hr IVPB DAILY [facility]; Protocol Last Admin: 09/30/18 09:27 Dose: 200 mls/hr Vancomycin HCl (Vancomycin (Pre-Docked)) 1,000 mg in 250 mls @ 166.667 mls/hr IVPB Q12H [facility]; Protocol Last Admin: 09/30/18 09:27 Dose: 166.667 mls/hr Insulin Aspart (Novolog Vial Sliding Scale -) 1 vial SQ ACHS [facility]; Protocol Last Admin: 09/30/18 06:10 Dose: Not Given Insulin Detemir (Levemir Vial) 30 units SQ [facility] Last Admin: 09/29/18 21:27 Dose: 30 units Isosorbide Mononitrate (Imdur -) 30 mg PO DAILY [facility] Last Admin: 09/30/18 09:26 Dose: 30 mg Metoprolol Succinate (Toprol Xl -) 100 mg PO DAILY [facility] Last Admin: 09/30/18 09:25 Dose: 100 mg Potassium Chloride (K-Dur -) 10 meq PO DAILY [facility] Last Admin: 09/30/18 09:26 Dose: 10 meq Rivaroxaban (Xarelto -) 20 mg PO DAILY@1800 [facility] Last Admin: 09/29/18 17:52 Dose: 20 mg Sacubitril/Valsartan (Entresto 49 Mg-51 Mg Tablet) 1 tab PO BID [facility] Last Admin: 09/30/18 09:28 Dose: 1 tab Tamsulosin HCl (Flomax -) 0.4 mg PO DAILY@0830 [facility] Last Admin: 09/30/18 09:25 Dose: 0.4 mg Tramadol HCl (Ultram -) 50 mg PO Q8H PRN PRN Reason: PAIN LEVEL 6-10 Last Admin: 09/30/18 06:11 Dose: 50 mg - Objective Vital Signs: Vital Signs Temperature 97.4 F L 09/30/18 08:44 Pulse Rate 81 09/30/18 09:26 Respiratory Rate 18 09/30/18 09:00 Blood Pressure 155/86 09/30/18 08:44 O2 Sat by Pulse Oximetry (%) 95 09/30/18 09:00 Constitutional: Yes: Mild Distress Eyes: Yes: WNL HENT: Yes: WNL Neck: Yes: WNL Cardiovascular: Yes: Pulse Irregular Respiratory: Yes: Diminished, On Nasal O2 Gastrointestinal: Yes: Soft, Other Genitourinary: Yes: Incontinence Musculoskeletal: Yes: Muscle Weakness Extremities: Yes: Erythema Edema: Yes Edema: LLE: 1+, RLE: 1+ Peripheral Pulses WNL: Yes Integumentary: Yes: Erythema, Pressure Ulcer, Rash, Venous Stasis Changes, Other Wound/Incision: Yes: Excoriated, Unapproximated Neurological: Yes: Pre-Existing Deficit ...Motor Strength: LLE, RLE Psychiatric: Yes: WNL Labs: CBC, BMP 09/30/18 05:45 09/30/18 05:45 INR, PTT INR 2.14 (0.83-1.09) H 09/23/18 09:15 Problem List - Problems (1) CHF (congestive heart failure) Code(s): I50.9 - HEART FAILURE, UNSPECIFIED (2) COPD (chronic obstructive pulmonary disease) Code(s): J44.9 - CHRONIC OBSTRUCTIVE PULMONARY DISEASE, UNSPECIFIED (3) Elevated troponin Code(s): R74.8 - ABNORMAL LEVELS OF OTHER SERUM ENZYMES (4) Pneumonia Code(s): J18.9 - PNEUMONIA, UNSPECIFIED ORGANISM Qualifiers: (5) Sepsis Code(s): A41.9 - SEPSIS, UNSPECIFIED ORGANISM (6) Acute exacerbation of chronic obstructive pulmonary disease (COPD) Code(s): J44.1 - CHRONIC OBSTRUCTIVE PULMONARY DISEASE W (ACUTE) EXACERBATION (7) Acute on chronic systolic heart failure Code(s): I50.23 - ACUTE ON CHRONIC SYSTOLIC (CONGESTIVE) HEART FAILURE (8) Atrial fibrillation Code(s): I48.91 - UNSPECIFIED ATRIAL FIBRILLATION (9) CAD S/P percutaneous coronary angioplasty Code(s): I25.10 - ATHSCL HEART DISEASE OF [place] CORONARY ARTERY W/O ANG PCTRS; Z98.61 - CORONARY ANGIOPLASTY STATUS (10) Cough Code(s): R05 - COUGH (11) Diabetes mellitus Code(s): E11.9 - TYPE 2 DIABETES MELLITUS WITHOUT COMPLICATIONS Qualifiers: Diabetes mellitus type: type 2 (12) Dyspnea Code(s): R06.00 - DYSPNEA, UNSPECIFIED (13) Peripheral vascular disease of lower extremity with ulceration Code(s): I73.9 - PERIPHERAL VASCULAR DISEASE, UNSPECIFIED; L97.909 - NON-PRS CHRONIC ULC UNSP PRT OF UNSP LOW LEG W UNSP SEVERITY (14) Type 2 diabetes mellitus with diabetic polyneuropathy Code(s): E11.42 - TYPE 2 DIABETES MELLITUS WITH DIABETIC POLYNEUROPATHY Assessment/Plan IV ABX FOR LEG / FOOT ULCERS ID AND SURGERY EVAL PODIATRY F/U DIETARY/ENDOCRINE FOR NUTRITION AND BETTER DIABETES MANAGEMENT. LABS REVIEWED DVT PROPHYLAXIS ON ELIQUIS FOR AFIB OOB TO CHAIR INCENTIVE SPIROMETRY
[2018-09-30] MEDS ORDERED: SODIUM CHLORIDE NASAL SPRAY 44 ML BOTTLE NS PRN (11:00)
--- NOTE | 2018-09-30 11:41 | PN ---
Progress Note, Physician History of Present Illness: pulmonary alert,,comfortable,-resp distress,oob-chair - Current Medication List Current Medications: Active Medications Acetaminophen (Tylenol -) 650 mg PO Q6H PRN PRN Reason: PAIN OR FEVER Albuterol/Ipratropium (Duoneb -) 1 amp NEB RQID [facility] Last Admin: 09/30/18 07:30 Dose: Not Given Aspirin (Ecotrin -) 81 mg PO DAILY [facility] Last Admin: 09/30/18 09:25 Dose: 81 mg Atorvastatin Calcium (Lipitor -) 20 mg PO HS [facility] Last Admin: 09/29/18 21:15 Dose: 20 mg Digoxin (Lanoxin -) 0.125 mg PO DAILY [facility] Last Admin: 09/30/18 09:26 Dose: 0.125 mg Gabapentin (Neurontin -) 300 mg PO BID [facility] Last Admin: 09/30/18 09:26 Dose: 300 mg Glimepiride (Amaryl -) 4 mg PO DAILY@0700 [facility] Last Admin: 09/30/18 06:10 Dose: 4 mg Ceftriaxone Sodium 2 gm/ (Dextrose) 100 mls @ 200 mls/hr IVPB DAILY [facility]; Protocol Last Admin: 09/30/18 09:27 Dose: 200 mls/hr Vancomycin HCl (Vancomycin (Pre-Docked)) 1,000 mg in 250 mls @ 166.667 mls/hr IVPB Q12H [facility]; Protocol Last Admin: 09/30/18 09:27 Dose: 166.667 mls/hr Insulin Aspart (Novolog Vial Sliding Scale -) 1 vial SQ ACHS [facility]; Protocol Last Admin: 09/30/18 06:10 Dose: Not Given Insulin Detemir (Levemir Vial) 30 units SQ [facility] Last Admin: 09/29/18 21:27 Dose: 30 units Isosorbide Mononitrate (Imdur -) 30 mg PO DAILY [facility] Last Admin: 09/30/18 09:26 Dose: 30 mg Metoprolol Succinate (Toprol Xl -) 100 mg PO DAILY [facility] Last Admin: 09/30/18 09:25 Dose: 100 mg Potassium Chloride (K-Dur -) 10 meq PO DAILY [facility] Last Admin: 09/30/18 09:26 Dose: 10 meq Rivaroxaban (Xarelto -) 20 mg PO DAILY@1800 [facility] Last Admin: 09/29/18 17:52 Dose: 20 mg Sacubitril/Valsartan (Entresto 49 Mg-51 Mg Tablet) 1 tab PO BID [facility] Last Admin: 09/30/18 09:28 Dose: 1 tab Sodium Chloride ([place] Nasal [place] -) 2 spray NS TID PRN PRN Reason: NASAL CONGESTION Tamsulosin HCl (Flomax -) 0.4 mg PO DAILY@0830 [facility] Last Admin: 09/30/18 09:25 Dose: 0.4 mg Tramadol HCl (Ultram -) 50 mg PO Q8H PRN PRN Reason: PAIN LEVEL 6-10 Last Admin: 09/30/18 06:11 Dose: 50 mg - Objective Vital Signs: Vital Signs Temperature 97.4 F L 09/30/18 08:44 Pulse Rate 81 09/30/18 09:26 Respiratory Rate 18 09/30/18 09:00 Blood Pressure 155/86 09/30/18 08:44 O2 Sat by Pulse Oximetry (%) 95 09/30/18 09:00 Constitutional: Yes: Well Nourished, Calm Eyes: Yes: WNL HENT: Yes: WNL, Tonsillar Exudate Cardiovascular: Yes: Pulse Irregular, S1, S2 Respiratory: Yes: Diminished Gastrointestinal: Yes: Normal Bowel Sounds, Soft Edema: Yes Labs: CBC, BMP 09/30/18 05:45 09/30/18 05:45 INR, PTT INR 2.14 (0.83-1.09) H 09/23/18 09:15 Problem List - Problems (1) Troponin I above reference range Code(s): R74.8 - ABNORMAL LEVELS OF OTHER SERUM ENZYMES (2) CHF (congestive heart failure) Code(s): I50.9 - HEART FAILURE, UNSPECIFIED (3) COPD (chronic obstructive pulmonary disease) Code(s): J44.9 - CHRONIC OBSTRUCTIVE PULMONARY DISEASE, UNSPECIFIED (4) Elevated troponin Code(s): R74.8 - ABNORMAL LEVELS OF OTHER SERUM ENZYMES (5) Pneumonia Code(s): J18.9 - PNEUMONIA, UNSPECIFIED ORGANISM Qualifiers: (6) Acute on chronic systolic heart failure Code(s): I50.23 - ACUTE ON CHRONIC SYSTOLIC (CONGESTIVE) HEART FAILURE (7) Atrial fibrillation Code(s): I48.91 - UNSPECIFIED ATRIAL FIBRILLATION (8) CAD S/P percutaneous coronary angioplasty Code(s): I25.10 - ATHSCL HEART DISEASE OF [place] CORONARY ARTERY W/O ANG PCTRS; Z98.61 - CORONARY ANGIOPLASTY STATUS (9) Cellulitis Code(s): L03.90 - CELLULITIS, UNSPECIFIED (10) Cough Code(s): R05 - COUGH (11) Diabetes mellitus Code(s): E11.9 - TYPE 2 DIABETES MELLITUS WITHOUT COMPLICATIONS Qualifiers: Diabetes mellitus type: type 2 (12) H/O heart artery stent Code(s): Z95.5 - PRESENCE OF CORONARY ANGIOPLASTY IMPLANT AND GRAFT (13) Hematuria Code(s): R31.9 - HEMATURIA, UNSPECIFIED Qualifiers: Hematuria type: unspecified type Qualified Code(s): R31.9 - Hematuria, unspecified Assessment/Plan IMP DYSPNEA improving ACUTE ON CHRONIC CHF BILATERAL LOWER EXT CELLULITIS COPD COUGH,CONGESTION R/O PNEUMONIA ASHD S/P [place],S/P STENT AFIB S/P ABLATION DM HLD + TROPONIN PLAN IV LASIX INHALED BRONCHODILATORS ABX PER ID DAILY WT DR GOMEZ Problem List - Problems (1) Troponin I above reference range Code(s): R74.8 - ABNORMAL LEVELS OF OTHER SERUM ENZYMES (2) CHF (congestive heart failure) Code(s): I50.9 - HEART FAILURE, UNSPECIFIED (3) COPD (chronic obstructive pulmonary disease) Code(s): J44.9 - CHRONIC OBSTRUCTIVE PULMONARY DISEASE, UNSPECIFIED (4) Elevated troponin Code(s): R74.8 - ABNORMAL LEVELS OF OTHER SERUM ENZYMES (5) Pneumonia Code(s): J18.9 - PNEUMONIA, UNSPECIFIED ORGANISM Qualifiers: (6) Acute on chronic systolic heart failure Code(s): I50.23 - ACUTE ON CHRONIC SYSTOLIC (CONGESTIVE) HEART FAILURE (7) Atrial fibrillation Code(s): I48.91 - UNSPECIFIED ATRIAL FIBRILLATION (8) CAD S/P percutaneous coronary angioplasty Code(s): I25.10 - ATHSCL HEART DISEASE OF [place] CORONARY ARTERY W/O ANG PCTRS; Z98.61 - CORONARY ANGIOPLASTY STATUS (9) Cellulitis Code(s): L03.90 - CELLULITIS, UNSPECIFIED (10) Cough Code(s): R05 - COUGH (11) Diabetes mellitus Code(s): E11.9 - TYPE 2 DIABETES MELLITUS WITHOUT COMPLICATIONS Qualifiers: Diabetes mellitus type: type 2 (12) H/O heart artery stent Code(s): Z95.5 - PRESENCE OF CORONARY ANGIOPLASTY IMPLANT AND GRAFT (13) Hematuria Code(s): R31.9 - HEMATURIA, UNSPECIFIED Qualifiers: Hematuria type: unspecified type Qualified Code(s): R31.9 - Hematuria, unspecified
[2018-09-30 12:38] VITALS: BMI 27.2
--- NOTE | 2018-09-30 14:53 | CONSULT ---
Consult Consult Specialty:: Podiatry Reason for Consultation:: Swelling and wounds right leg - History of Present Illness Chief Complaint: Multiple wounds right leg with fungus toe nails b/l feet History of Present Illness: chronic wounds right leg with chronic fungus toe nails - History Source History Provided By: Patient - Past Medical History Cardio/Vascular: Yes: AFIB, CAD, CHF, HTN, Hyperlipdemia, [place] Pulmonary: Yes: COPD, Other (pleural effusion). No: O2 Dependent Infectious Disease: Yes: MRSA. 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 History of Recent Travel: No Home Medications - Allergies Allergies/Adverse Reactions: Allergies Allergy/AdvReac Type Severity Reaction Status Date / Time No Known Allergies Allergy Verified 09/23/18 08:15 - Home Medications Home Medications: Ambulatory Orders Aspirin [ASA -] 81 mg PO DAILY #0 tab 07/11/17 Glimepiride [Amaryl -] 4 mg PO DAILY@0700 #0 tab 07/11/17 Simvastatin [Zocor -] 20 mg PO DAILY #0 tab 07/11/17 Gabapentin 300 mg PO DAILY 10/26/17 Metoprolol Succinate [Toprol XL -] 100 mg PO DAILY 10/26/17 Rivaroxaban [Xarelto -] 20 mg PO DAILY 10/26/17 Tamsulosin HCl [Flomax -] 0.4 mg PO DAILY 10/26/17 Ipratropium 0.02% Nebulizer [Atrovent 0.02% Nebulizer -] 1 amp NEB RQID #120 amp 11/02/17 Isosorbide Mononitrate [Imdur -] 60 mg PO DAILY #30 tab.sr.24h 11/02/17 Digoxin [Lanoxin -] 0.125 mg PO DAILY #30 tablet MDD 1 05/09/18 Potassium Chloride [K-Dur -] 20 meq PO DAILY #20 tablet.er MDD 1 05/09/18 traMADol HCL [Ultram -] 50 mg PO Q6H PRN #10 tablet MDD 4 05/09/18 Sacubitril/Valsartan [Entresto 49 mg-51 mg Tablet] 1 tab PO DAILY 08/27/18 Furosemide [Lasix] 40 mg PO DAILY #30 tab 08/30/18 Insulin Glargine,Hum.rec.anlog [Basaglar Tracyikpen U-100] 30 unit SQ BID #1 ea 07/09 Family Disease History - Family Disease History Family Disease History: Other: Father (dialysis) Physical Exam Vital Signs: Vital Signs Temperature 98.8 F 09/30/18 13:38 Pulse Rate 80 09/30/18 13:38 Respiratory Rate 18 09/30/18 13:38 Blood Pressure 146/88 09/30/18 13:38 O2 Sat by Pulse Oximetry (%) 95 09/30/18 09:00 Extremities: Yes: Other (multiple weeping wounds right leg, +onychomycosis b/l toe nails, +edema, non pitting) Labs: CBC, BMP 09/30/18 05:45 09/30/18 05:45 Assessment/Plan venous stasis ulceration x 4 right onychomycosis b/l feet Betadine dressing change daily to wounds on right leg. Foot care q 8 weeks for fungus toe nails. Topical antifungal b/l feet. Will follow.
[2018-09-30] MEDS: RIVAROXABAN 20 MG TABLET PO SCH (18:00)
[2018-09-30] MEDS: ATORVASTATIN CA 20 MG TABLET (FP) PO SCH (21:20)
[2018-09-30] MEDS: NYSTATIN/TRIAMCINOLONE TOPICAL CREAM 15 GM TUBE TP SCH (21:20)
[2018-09-30] MEDS: INSULIN (LEVEMIR) 100 UNITS/ML UNITS SQ SCH (22:11)
[2018-10-01] MEDS: traMADol HCL 50 MG TABLET PO PRN ×3 (00:41→19:38)
[2018-10-01 04:15] LABS: SERUM IRON SATURATION 12 % (15-55); TOTAL IRON BINDING CAPACITY 231 ug/dL (250-450); UIBC 203 ug/dL (111-343)
[2018-10-01] MEDS: INSULIN SLIDING SCALE (NOVOLOG) 1 VIAL SQ SCH ×4 (06:06→22:00)
[2018-10-01] MEDS ORDERED: PT OWN MED DRAWER 7, Y5N ONE ×2 (06:13→21:55)
[2018-10-01] MEDS: ALBUTEROL SO4 2.5/IPRATROPIUM 0.5 INH SOL 3 ML VIAL.NEB. NEB SCH ×4 (07:30→20:10)
--- NOTE | 2018-10-01 09:39 | PN ---
Progress Note, Physician - Current Medication List Current Medications: Active Medications Acetaminophen (Tylenol -) 650 mg PO Q6H PRN PRN Reason: PAIN OR FEVER Albuterol/Ipratropium (Duoneb -) 1 amp NEB RQID [facility] Last Admin: 10/01/18 07:30 Dose: 1 amp Aspirin (Ecotrin -) 81 mg PO DAILY [facility] Last Admin: 09/30/18 09:25 Dose: 81 mg Atorvastatin Calcium (Lipitor -) 20 mg PO HS [facility] Last Admin: 09/30/18 21:20 Dose: 20 mg Digoxin (Lanoxin -) 0.125 mg PO DAILY [facility] Last Admin: 09/30/18 09:26 Dose: 0.125 mg Furosemide (Lasix Injection -) 40 mg IVPUSH BID@0600,1400 [facility] Gabapentin (Neurontin -) 300 mg PO BID [facility] Last Admin: 09/30/18 21:20 Dose: 300 mg Glimepiride (Amaryl -) 4 mg PO DAILY@0700 [facility] Last Admin: 09/30/18 06:10 Dose: 4 mg Ceftriaxone Sodium 2 gm/ (Dextrose) 100 mls @ 200 mls/hr IVPB DAILY [facility]; Protocol Last Admin: 09/30/18 09:27 Dose: 200 mls/hr Vancomycin HCl (Vancomycin (Pre-Docked)) 1,000 mg in 250 mls @ 166.667 mls/hr IVPB Q12H [facility]; Protocol Last Admin: 09/30/18 21:20 Dose: 166.667 mls/hr Insulin Aspart (Novolog Vial Sliding Scale -) 1 vial SQ ACHS [facility]; Protocol Last Admin: 10/01/18 06:06 Dose: Not Given Insulin Detemir (Levemir Vial) 30 units SQ [facility] Last Admin: 09/30/18 22:11 Dose: 30 units Isosorbide Mononitrate (Imdur -) 30 mg PO DAILY [facility] Last Admin: 09/30/18 09:26 Dose: 30 mg Metoprolol Succinate (Toprol Xl -) 100 mg PO DAILY [facility] Last Admin: 09/30/18 09:25 Dose: 100 mg Nystatin/Triamcinolone Acetonide (Mycolog Ii Cream -) 2 applic TP BID [facility] Last Admin: 09/30/18 21:20 Dose: 1 applic Potassium Chloride (K-Dur -) 10 meq PO DAILY [facility] Last Admin: 09/30/18 09:26 Dose: 10 meq Rivaroxaban (Xarelto -) 20 mg PO DAILY@1800 [facility] Last Admin: 09/30/18 18:00 Dose: 20 mg Sacubitril/Valsartan (Entresto 49 Mg-51 Mg Tablet) 1 tab PO BID [facility] Last Admin: 09/30/18 21:20 Dose: 1 tab Sodium Chloride ([place] Nasal [place] -) 2 spray NS TID PRN PRN Reason: NASAL CONGESTION Last Admin: 09/30/18 13:38 Dose: 2 spray Tamsulosin HCl (Flomax -) 0.4 mg PO DAILY@0830 [facility] Last Admin: 09/30/18 09:25 Dose: 0.4 mg Tramadol HCl (Ultram -) 50 mg PO Q8H PRN PRN Reason: PAIN LEVEL 6-10 Last Admin: 10/01/18 00:41 Dose: 50 mg - Objective Vital Signs: Vital Signs Temperature 98.3 F 10/01/18 06:00 Pulse Rate 74 10/01/18 06:00 Respiratory Rate 20 10/01/18 06:00 Blood Pressure 137/97 10/01/18 06:00 O2 Sat by Pulse Oximetry (%) 98 09/30/18 21:00 Cardiovascular: Yes: Regular Rate and Rhythm Respiratory: Yes: Regular, CTA Bilaterally Gastrointestinal: Yes: Normal Bowel Sounds, Soft Extremities: Yes: Erythema Edema: Yes Labs: CBC, BMP 09/30/18 05:45 09/30/18 05:45 INR, PTT INR 2.14 (0.83-1.09) H 09/23/18 09:15 Problem List - Problems (1) CHF (congestive heart failure) Assessment/Plan: -IV LASIX--TO BID -CARDIO ON BOARD -FOLLOW LABS Code(s): I50.9 - HEART FAILURE, UNSPECIFIED (2) Atrial fibrillation Assessment/Plan: -RATE CONTROLLED -ON XARELTO Code(s): I48.91 - UNSPECIFIED ATRIAL FIBRILLATION (3) Cellulitis Assessment/Plan: -IV ABX -Follow labs -Vanco level Code(s): L03.90 - CELLULITIS, UNSPECIFIED (4) Anemia Assessment/Plan: -Monitor -W/U Ordered Code(s): D64.9 - ANEMIA, UNSPECIFIED
[2018-10-01] MEDS ORDERED: FUROSEMIDE 40 MG TABLET (FP) PO SCH (10:00)
[2018-10-01] MEDS ORDERED: DEXTROSE 5%-WATER 100 ML IVPB ONE (10:12)
[2018-10-01] MEDS: DIGOXIN 0.125 MG TABLET (FP) PO SCH (10:24)
[2018-10-01] MEDS: POTASSIUM CHLORIDE TABS 10 MEQ TABLET.ER (FP) PO SCH (10:24)
[2018-10-01] MEDS: TAMSULOSIN HCL 0.4 MG CAP PO SCH (10:24)
[2018-10-01] MEDS: ISOSORBIDE MONONITRATE 30 MG TAB.SR.24H (FP) PO SCH (10:24)
[2018-10-01] MEDS: GABAPENTIN 300 MG CAPSULE (FP) PO SCH ×2 (10:24→22:01)
[2018-10-01] MEDS: GLIMEPIRIDE 4 MG TABLET (FP) PO SCH (10:25)
[2018-10-01] MEDS: ASPIRIN COATED 81 MG TABLET.EC PO SCH (10:25)
[2018-10-01] MEDS: CEFTRIAXONE 2 GM in DEXTROSE 5%-WATER 100 ML IVPB SCH (10:26)
[2018-10-01] MEDS: SACUBITRIL/VALSARTAN 49 MG-51 MG TABLET PO SCH ×2 (10:26→22:01)
[2018-10-01] MEDS: NYSTATIN/TRIAMCINOLONE TOPICAL CREAM 15 GM TUBE TP SCH ×2 (10:49→22:03)
[2018-10-01] MEDS: VANCOMYCIN 1 GRAM (PRE-DOCKED) 1,000 MG/250 ML BAG IVPB SCH ×2 (11:40→22:35)
--- NOTE | 2018-10-01 12:48 | CONSULT ---
- Consultation REQUESTING PROVIDER: CONSULT REQUEST: We have been asked to surgically evaluate this patient for (le ulcers). PCP:Aisha Amaya HISTORY OF PRESENT ILLNESS: 63 y/o M w/ male with PMHx COPD not on home O2, CAD s/p stent, diastolic CHF, Afib (s/p ablation), DM, HTN, HLD, BPH now admitted with URI symptoms, fevers, leg edema and shortness of breath. Vascular consulted for evaluation of RLE ulcers. Pt reports he has developed significant b/l le's swelling followed by blisters which popped and left open wounds over the past week despite the use of compression therapy. Has been using Aquacel at home, reports it is working well for him due to the amount of drainage he has. Denies fevers, chills at home. Reports using compression socks 20-30mmHg daily, elevating b.l le's at rest. Ambulates without assistance, quit smoking 1.5 years ago (prior smoker 3cigs-1/2 ppd since teens). PMHx: as above PSHx: denies Home Medications Medication Instructions Recorded Aspirin [ASA -] 81 mg PO DAILY #0 tab 07/11/17 Glimepiride [Amaryl -] 4 mg PO DAILY@0700 #0 tab 07/11/17 Simvastatin [Zocor -] 20 mg PO DAILY #0 tab 07/11/17 Gabapentin 300 mg PO DAILY 10/26/17 Metoprolol Succinate [Toprol XL -] 100 mg PO DAILY 10/26/17 Rivaroxaban [Xarelto -] 20 mg PO DAILY 10/26/17 Tamsulosin HCl [Flomax -] 0.4 mg PO DAILY 10/26/17 Ipratropium 0.02% Nebulizer 1 amp NEB RQID #120 amp 11/02/17 [Atrovent 0.02% Nebulizer -] Isosorbide Mononitrate [Imdur -] 60 mg PO DAILY #30 tab.sr.24h 11/02/17 Digoxin [Lanoxin -] 0.125 mg PO DAILY #30 tablet MDD 1 05/09/18 Potassium Chloride [K-Dur -] 20 meq PO DAILY #20 tablet.er MDD 1 05/09/18 traMADol HCL [Ultram -] 50 mg PO Q6H PRN #10 tablet MDD 4 05/09/18 Sacubitril/Valsartan [Entresto 49 1 tab PO DAILY 08/27/18 mg-51 mg Tablet] Furosemide [Lasix] 40 mg PO DAILY #30 tab 08/30/18 Insulin Glargine,Hum.rec.anlog 30 unit SQ BID #1 ea 08/30/18 [Abneraglmagan [place] U-100] Allergies Allergy/AdvReac Type Severity Reaction Status Date / Time No Known Allergies Allergy Verified 09/23/18 08:15 REVIEW OF SYSTEMS: CONSTITUTIONAL: Absent: fever, chills MUSCULOSKELETAL: +edema of legs SKIN: +blisters/open ulcers PHYSICAL EXAM: GENERAL: Awake, alert, and fully oriented, in no acute distress. HEAD: Normal with no signs of trauma. LOWER EXTREMITIES: LLE with 1-2+ pitting edema to mid calf. + erythema, no increased warmth. Multiple superficial ulcerations on the anterior mcmanus, largest of which is approximately 3.5x3.5 cms. All ulcerations clean based with serous drainage. No purulent drainage, no foul odor. No crepitus, no fluctuance. LLE small superficial ulcers, clean based with no drainage. Compartments full but soft, no pain with dorsiflexion/plantarflexion. + onychomycosis. Vasc: 2+ b/l fem/dp/pt Vital Signs Temperature 98.1 F 10/01/18 10:00 Pulse Rate 78 10/01/18 10:24 Respiratory Rate 20 10/01/18 10:00 Blood Pressure 143/90 10/01/18 10:00 O2 Sat by Pulse Oximetry (%) 95 10/01/18 09:00 Lab Results WBC 7.8 K/mm3 (4.0-10.0) 09/30/18 05:45 RBC 3.85 M/mm3 (4.00-5.60) L 09/30/18 05:45 Hgb 9.6 GM/dL (11.7-16.9) L 09/30/18 05:45 Hct 30.2 % (35.4-49) L 09/30/18 05:45 MCV 78.4 fl (80-96) L 09/30/18 05:45 MCHC 31.7 g/dl (32.0-35.9) L 09/30/18 05:45 RDW 15.4 % (11.9-15.9) 09/30/18 05:45 Plt Count 392 K/MM3 (134-434) 09/30/18 05:45 Sodium 137 mmol/L (136-145) 09/30/18 05:45 Potassium 4.2 mmol/L (3.5-5.1) 09/30/18 05:45 Chloride 103 mmol/L (98-107) 09/30/18 05:45 Carbon Dioxide 27 mmol/L (21-32) 09/30/18 05:45 Anion Gap 7 MMOL/L (8-16) L 09/30/18 05:45 BUN 28 mg/dL (7-18) H 09/30/18 05:45 Creatinine 1.3 mg/dL (0.55-1.3) 09/30/18 05:45 Random Glucose 142 mg/dL (74-106) H 09/30/18 05:45 Calcium 7.8 mg/dL (8.5-10.1) L 09/30/18 05:45 INR 2.14 (0.83-1.09) H 09/23/18 09:15 A/P: 63 y/o M w/ male with PMHx COPD not on home O2, CAD s/p stent, diastolic CHF, Afib (s/p ablation), DM, HTN, HLD, BPH now admitted with URI symptoms, fevers, leg edema and shortness of breath. Afebrile, VSS. No leukocytosis, b/l le's with cellulitis. Clean based wounds with no s/s of infection. Elevate the lower extremity above the level of the heart at all times while at rest Accuseal dressing to LE's, do not apply tape or tegaderm to skin as this may cause skin breakdown and further ulcers. Continue diuretics and abx per medicine Remainder of care per primary team d/w attending Dr Mendoza
[2018-10-01] MEDS: FUROSEMIDE 40 MG/4 ML INJECTABLE VIAL IVPUSH SCH (14:25)
--- NOTE | 2018-10-01 15:09 | PN ---
Progress Note (short form) - Note Progress Note: Resting in NAD. No CP or SOB. No acute events overnight. Intake & Output 09/28/18 09/29/18 09/30/18 10/01/18 23:59 23:59 23:59 23:59 Intake Total 1060 1640 1570 640 Output Total 750 850 Balance 723 025 8750 640 Weight 200 lb 201 lb 201 lb 203 lb Last Vital Signs Temp Pulse Resp BP Pulse Ox 98.0 F 77 20 148/48 L 95 10/01/18 14:00 10/01/18 14:00 10/01/18 14:00 10/01/18 14:00 10/01/18 09:00 Active Medications Acetaminophen (Tylenol -) 650 mg PO Q6H PRN PRN Reason: PAIN OR FEVER Albuterol/Ipratropium (Duoneb -) 1 amp NEB RQID [facility] Last Admin: 10/01/18 11:29 Dose: Not Given Aspirin (Ecotrin -) 81 mg PO DAILY [facility] Last Admin: 10/01/18 10:25 Dose: 81 mg Atorvastatin Calcium (Lipitor -) 20 mg PO HS [facility] Last Admin: 09/30/18 21:20 Dose: 20 mg Digoxin (Lanoxin -) 0.125 mg PO DAILY [facility] Last Admin: 10/01/18 10:24 Dose: 0.125 mg Furosemide (Lasix Injection -) 40 mg IVPUSH BID@0600,1400 [facility] Last Admin: 10/01/18 14:25 Dose: 40 mg Gabapentin (Neurontin -) 300 mg PO BID [facility] Last Admin: 10/01/18 10:24 Dose: 300 mg Glimepiride (Amaryl -) 4 mg PO DAILY@0700 [facility] Last Admin: 10/01/18 10:25 Dose: 4 mg Ceftriaxone Sodium 2 gm/ (Dextrose) 100 mls @ 200 mls/hr IVPB DAILY [facility]; Protocol Last Admin: 10/01/18 10:26 Dose: 200 mls/hr Vancomycin HCl (Vancomycin (Pre-Docked)) 1,000 mg in 250 mls @ 166.667 mls/hr IVPB Q12H [facility]; Protocol Last Admin: 10/01/18 11:40 Dose: 166.667 mls/hr Insulin Aspart (Novolog Vial Sliding Scale -) 1 vial SQ ACHS [facility]; Protocol Last Admin: 10/01/18 11:52 Dose: 3 units Insulin Detemir (Levemir Vial) 30 units SQ HS [facility] Last Admin: 09/30/18 22:11 Dose: 30 units Isosorbide Mononitrate (Imdur -) 30 mg PO DAILY [facility] Last Admin: 10/01/18 10:24 Dose: 30 mg Metoprolol Succinate (Toprol Xl -) 100 mg PO DAILY [facility] Last Admin: 10/01/18 10:24 Dose: 100 mg Nystatin/Triamcinolone Acetonide (Mycolog Ii Cream -) 2 applic TP BID [facility] Last Admin: 10/01/18 10:49 Dose: 2 applic Potassium Chloride (K-Dur -) 10 meq PO DAILY [facility] Last Admin: 10/01/18 10:24 Dose: 10 meq Rivaroxaban (Xarelto -) 20 mg PO DAILY@1800 [facility] Last Admin: 09/30/18 18:00 Dose: 20 mg Sacubitril/Valsartan (Entresto 49 Mg-51 Mg Tablet) 1 tab PO BID [facility] Last Admin: 10/01/18 10:26 Dose: 1 tab Sodium Chloride ([place] Nasal [place] -) 2 spray NS TID PRN PRN Reason: NASAL CONGESTION Last Admin: 09/30/18 13:38 Dose: 2 spray Tamsulosin HCl (Flomax -) 0.4 mg PO DAILY@0830 [facility] Last Admin: 10/01/18 10:24 Dose: 0.4 mg Tramadol HCl (Ultram -) 50 mg PO Q8H PRN PRN Reason: PAIN LEVEL 6-10 Last Admin: 10/01/18 10:24 Dose: 50 mg Constitutional: Yes: NAD Eyes: Yes: WNL HENT: Yes: WNL Neck: Yes: WNL Cardiovascular: Yes: Pulse Irregular, S1, S2 Respiratory: Yes: Diminished, basilar rhonchi Gastrointestinal: Yes: Normal Bowel Sounds, Soft Extremities: Yes: WNL Edema: Yes Labs: Laboratory Results - last 24 hr 09/30/18 09/30/18 09/30/18 05:45 17:21 22:05 POC Glucometer 138 315 Hemoglobin A1c % Iron 28 L TIBC 231 L Iron Saturation 12 L 10/01/18 10/01/18 10/01/18 05:19 06:00 11:47 POC Glucometer 89 171 Hemoglobin A1c % 9.7 H Iron TIBC Iron Saturation Problem List - Problems (1) Troponin I above reference range Code(s): R74.8 - ABNORMAL LEVELS OF OTHER SERUM ENZYMES (2) CHF (congestive heart failure) Code(s): I50.9 - HEART FAILURE, UNSPECIFIED (3) COPD (chronic obstructive pulmonary disease) Code(s): J44.9 - CHRONIC OBSTRUCTIVE PULMONARY DISEASE, UNSPECIFIED (4) Elevated troponin Code(s): R74.8 - ABNORMAL LEVELS OF OTHER SERUM ENZYMES (5) Pneumonia Code(s): J18.9 - PNEUMONIA, UNSPECIFIED ORGANISM Qualifiers: (6) Acute on chronic systolic heart failure Code(s): I50.23 - ACUTE ON CHRONIC SYSTOLIC (CONGESTIVE) HEART FAILURE (7) Atrial fibrillation Code(s): I48.91 - UNSPECIFIED ATRIAL FIBRILLATION (8) CAD S/P percutaneous coronary angioplasty Code(s): I25.10 - ATHSCL HEART DISEASE OF [place] CORONARY ARTERY W/O ANG PCTRS; Z98.61 - CORONARY ANGIOPLASTY STATUS (9) Cellulitis Code(s): L03.90 - CELLULITIS, UNSPECIFIED (10) Cough Code(s): R05 - COUGH (11) Diabetes mellitus Code(s): E11.9 - TYPE 2 DIABETES MELLITUS WITHOUT COMPLICATIONS Qualifiers: Diabetes mellitus type: type 2 (12) H/O heart artery stent Code(s): Z95.5 - PRESENCE OF CORONARY ANGIOPLASTY IMPLANT AND GRAFT (13) Hematuria Code(s): R31.9 - HEMATURIA, UNSPECIFIED Qualifiers: Hematuria type: unspecified type Qualified Code(s): R31.9 - Hematuria, unspecified Assessment/Plan IMP DYSPNEA ACUTE ON CHRONIC CHF BILATERAL LOWER EXT CELLULITIS COPD COUGH,CONGESTION R/O PNEUMONIA ASHD S/P NH,S/P STENT AFIB S/P ABLATION DM HLD + TROPONIN PLAN IV LASIX BID INHALED BRONCHODILATORS ABX PER ID DAILY WT FRANCISCARELJUANA Smith
--- NOTE | 2018-10-01 15:10 | PN ---
Progress Note (short form) - Note Progress Note: fuv b/l legs. +4 wounds right 1 wound left leg, +grade 1 all wounds, -cellulitis,+weeping, + blisters right lateral leg, draining wounds b/l legs Continue betadine dressing changes. Will follow. Reviewed xray right leg report.
[2018-10-01] MEDS: RIVAROXABAN 20 MG TABLET PO SCH (17:14)
[2018-10-01] MEDS: INSULIN (LEVEMIR) 100 UNITS/ML UNITS SQ SCH (22:01)
[2018-10-01] MEDS: ATORVASTATIN CA 20 MG TABLET (FP) PO SCH (22:01)
[2018-10-02] MEDS: FUROSEMIDE 40 MG/4 ML INJECTABLE VIAL IVPUSH SCH ×2 (05:46→13:36)
[2018-10-02] MEDS: traMADol HCL 50 MG TABLET PO PRN (05:54)
[2018-10-02] MEDS: INSULIN SLIDING SCALE (NOVOLOG) 1 VIAL SQ SCH ×3 (06:05→18:14)
[2018-10-02 06:25] LABS: BASO % 0.8 % (0-2.0); EOS % 1.3 % (0-4.5); HEMATOCRIT 30.1 % (35.4-49); HEMOGLOBIN 9.6 GM/dL (11.7-16.9); LYMPH % 17.1 % (8-40); MCH 25.1 pg (25.7-33.7); MCHC 31.9 g/dl (32.0-35.9); MEAN CELL VOLUME 78.7 fl (80-96); MEAN PLT VOLUME 8.7 fl (7.5-11.1); MONO % 11.2 % (3.8-10.2); NEUT % 69.6 % (42.8-82.8); PLATELET COUNT 406 K/MM3 (134-434); RBC 3.83 M/mm3 (4.00-5.60); RDW 16.1 % (11.9-15.9); WHITE BLOOD COUNT 9.2 K/mm3 (4.0-10.0)
[2018-10-02 06:58] LABS: BLOOD UREA NITROGEN 26 mg/dL (7-18); GLUCOSE,RANDOM 52 mg/dL (74-106)
[2018-10-02 06:59] LABS: ALBUMIN 2.2 g/dl (3.4-5.0); ALK PHOS 157 U/L (45-117); ANION GAP 10 MMOL/L (8-16); CALCIUM 8.3 mg/dL (8.5-10.1); CHLORIDE 104 mmol/L (98-107); CO2 27 mmol/L (21-32); CREATININE 1.2 mg/dL (0.55-1.3); POTASSIUM 3.9 mmol/L (3.5-5.1); SGOT/AST 26 U/L (15-37); SGPT/ALT 34 U/L (13-61); SODIUM 141 mmol/L (136-145); TOT PROT 5.9 g/dl (6.4-8.2)
[2018-10-02] MEDS: ALBUTEROL SO4 2.5/IPRATROPIUM 0.5 INH SOL 3 ML VIAL.NEB. NEB SCH ×3 (07:22→16:15)
[2018-10-02] MEDS: GLIMEPIRIDE 4 MG TABLET (FP) PO SCH (08:00)
[2018-10-02] MEDS ORDERED: PT OWN MED DRAWER 7, Y5N ONE (08:12)
[2018-10-02] MEDS ORDERED: DEXTROSE 5%-WATER 100 ML IVPB ONE (09:52)
[2018-10-02] MEDS: POTASSIUM CHLORIDE TABS 10 MEQ TABLET.ER (FP) PO SCH (09:59)
[2018-10-02] MEDS: ASPIRIN COATED 81 MG TABLET.EC PO SCH (10:00)
[2018-10-02] MEDS: ISOSORBIDE MONONITRATE 30 MG TAB.SR.24H (FP) PO SCH (10:00)
[2018-10-02] MEDS: GABAPENTIN 300 MG CAPSULE (FP) PO SCH (10:00)
[2018-10-02] MEDS: TAMSULOSIN HCL 0.4 MG CAP PO SCH (10:00)
[2018-10-02] MEDS: DIGOXIN 0.125 MG TABLET (FP) PO SCH (10:00)
[2018-10-02] MEDS: CEFTRIAXONE 2 GM in DEXTROSE 5%-WATER 100 ML IVPB SCH (10:01)
[2018-10-02] MEDS: NYSTATIN/TRIAMCINOLONE TOPICAL CREAM 15 GM TUBE TP SCH (10:01)
[2018-10-02] MEDS: SACUBITRIL/VALSARTAN 49 MG-51 MG TABLET PO SCH (10:01)
--- NOTE | 2018-10-02 10:11 | PN ---
Progress Note, Physician History of Present Illness: Awake, alert No acute distress No c/o leg pain Afebrile WBC WNL - Current Medication List Current Medications: Active Medications Acetaminophen (Tylenol -) 650 mg PO Q6H PRN PRN Reason: PAIN OR FEVER Albuterol/Ipratropium (Duoneb -) 1 amp NEB RQID [facility] Last Admin: 10/02/18 07:22 Dose: 1 amp Aspirin (Ecotrin -) 81 mg PO DAILY [facility] Last Admin: 10/02/18 10:00 Dose: 81 mg Atorvastatin Calcium (Lipitor -) 20 mg PO HS [facility] Last Admin: 10/01/18 22:01 Dose: 20 mg Digoxin (Lanoxin -) 0.125 mg PO DAILY [facility] Last Admin: 10/02/18 10:00 Dose: 0.125 mg Furosemide (Lasix Injection -) 40 mg IVPUSH BID@0600,1400 [facility] Last Admin: 10/02/18 05:46 Dose: 40 mg Gabapentin (Neurontin -) 300 mg PO BID [facility] Last Admin: 10/02/18 10:00 Dose: 300 mg Glimepiride (Amaryl -) 4 mg PO DAILY@0700 [facility] Last Admin: 10/02/18 08:00 Dose: 4 mg Insulin Aspart (Novolog Vial Sliding Scale -) 1 vial SQ [facility]; Protocol Last Admin: 10/02/18 06:05 Dose: Not Given Insulin Detemir (Levemir Vial) 30 units SQ [facility] Last Admin: 10/01/18 22:01 Dose: 30 units Isosorbide Mononitrate (Imdur -) 30 mg PO DAILY [facility] Last Admin: 10/02/18 10:00 Dose: 30 mg Metoprolol Succinate (Toprol Xl -) 100 mg PO DAILY [facility] Last Admin: 10/02/18 10:00 Dose: 100 mg Nystatin/Triamcinolone Acetonide (Mycolog Ii Cream -) 2 applic TP BID [facility] Last Admin: 10/02/18 10:01 Dose: 2 applic Potassium Chloride (K-Dur -) 10 meq PO DAILY [facility] Last Admin: 10/02/18 09:59 Dose: 10 meq Rivaroxaban (Xarelto -) 20 mg PO DAILY@1800 [facility] Last Admin: 10/01/18 17:14 Dose: 20 mg Sacubitril/Valsartan (Entresto 49 Mg-51 Mg Tablet) 1 tab PO BID [facility] Last Admin: 10/02/18 10:01 Dose: 1 tab Sodium Chloride ([place] Nasal [place] -) 2 spray NS TID PRN PRN Reason: NASAL CONGESTION Last Admin: 09/30/18 13:38 Dose: 2 spray Tamsulosin HCl (Flomax -) 0.4 mg PO DAILY@0830 [facility] Last Admin: 10/02/18 10:00 Dose: 0.4 mg Tramadol HCl (Ultram -) 50 mg PO Q8H PRN PRN Reason: PAIN LEVEL 6-10 Last Admin: 10/02/18 05:54 Dose: 50 mg - Objective Vital Signs: Vital Signs Temperature 98.2 F 10/02/18 06:00 Pulse Rate 76 10/02/18 10:00 Respiratory Rate 18 10/02/18 06:00 Blood Pressure 145/78 10/02/18 06:00 O2 Sat by Pulse Oximetry (%) 95 10/01/18 20:35 Constitutional: Yes: No Distress Eyes: Yes: Conjunctiva Clear Cardiovascular: Yes: Regular Rate and Rhythm, S1, S2 Respiratory: Yes: CTA Bilaterally Gastrointestinal: Yes: Normal Bowel Sounds, Soft. No: Tenderness Extremities: Yes: Other (3cm superficial ulcer R LE no drainage; stasis dermatitis) Labs: CBC, BMP 10/02/18 06:00 10/02/18 06:00 INR, PTT INR 2.14 (0.83-1.09) H 09/23/18 09:15 Assessment/Plan Cellulitis LE bilaterally improved CHF ? pneumonia Hx MRSA Substitute po Bactrim DS bid x 7d
[2018-10-02] MEDS ORDERED: SULFAMETHOXAZOLE/TRIMETHOPRIM 800MG/160MG D.S. TABLET PO SCH (10:50)
[2018-10-02] MEDS ORDERED: INSULIN (LEVEMIR) 100 UNITS/ML UNITS SQ SCH (12:33)
--- NOTE | 2018-10-02 12:42 | PN ---
Progress Note, Physician History of Present Illness: pulmonary alert,no distress,-cp,less dyspneic - Current Medication List Current Medications: Active Medications Acetaminophen (Tylenol -) 650 mg PO Q6H PRN PRN Reason: PAIN OR FEVER Albuterol/Ipratropium (Duoneb -) 1 amp NEB RQID [facility] Last Admin: 10/02/18 11:03 Dose: 1 amp Aspirin (Ecotrin -) 81 mg PO DAILY [facility] Last Admin: 10/02/18 10:00 Dose: 81 mg Atorvastatin Calcium (Lipitor -) 20 mg PO HS [facility] Last Admin: 10/01/18 22:01 Dose: 20 mg Digoxin (Lanoxin -) 0.125 mg PO DAILY [facility] Last Admin: 10/02/18 10:00 Dose: 0.125 mg Furosemide (Lasix Injection -) 40 mg IVPUSH BID@0600,1400 [facility] Last Admin: 10/02/18 05:46 Dose: 40 mg Gabapentin (Neurontin -) 300 mg PO BID [facility] Last Admin: 10/02/18 10:00 Dose: 300 mg Glimepiride (Amaryl -) 4 mg PO DAILY@0700 [facility] Last Admin: 10/02/18 08:00 Dose: 4 mg Insulin Aspart (Novolog Vial Sliding Scale -) 1 vial SQ [facility]; Protocol Last Admin: 10/02/18 12:21 Dose: 4 units Insulin Detemir (Levemir Vial) 10 units SQ [facility] Insulin Detemir (Levemir Vial) 23 units SQ AM [facility] Isosorbide Mononitrate (Imdur -) 30 mg PO DAILY [facility] Last Admin: 10/02/18 10:00 Dose: 30 mg Metoprolol Succinate (Toprol Xl -) 100 mg PO DAILY [facility] Last Admin: 10/02/18 10:00 Dose: 100 mg Nystatin/Triamcinolone Acetonide (Mycolog Ii Cream -) 2 applic TP BID [facility] Last Admin: 10/02/18 10:01 Dose: 2 applic Potassium Chloride (K-Dur -) 10 meq PO DAILY [facility] Last Admin: 10/02/18 09:59 Dose: 10 meq Rivaroxaban (Xarelto -) 20 mg PO DAILY@1800 [facility] Last Admin: 10/01/18 17:14 Dose: 20 mg Sacubitril/Valsartan (Entresto 49 Mg-51 Mg Tablet) 1 tab PO BID [facility] Last Admin: 10/02/18 10:01 Dose: 1 tab Sodium Chloride ([place] Nasal [place] -) 2 spray NS TID PRN PRN Reason: NASAL CONGESTION Last Admin: 09/30/18 13:38 Dose: 2 spray Tamsulosin HCl (Flomax -) 0.4 mg PO DAILY@0830 [facility] Last Admin: 10/02/18 10:00 Dose: 0.4 mg Tramadol HCl (Ultram -) 50 mg PO Q8H PRN PRN Reason: PAIN LEVEL 6-10 Last Admin: 10/02/18 05:54 Dose: 50 mg Trimethoprim/Sulfamethoxazole (Bactrim Ds -) 1 each PO BID [facility] Last Admin: 10/02/18 12:02 Dose: 1 each - Objective Vital Signs: Vital Signs Temperature 98.8 F 10/02/18 10:00 Pulse Rate 78 10/02/18 10:00 Respiratory Rate 18 10/02/18 10:00 Blood Pressure 139/76 10/02/18 10:00 O2 Sat by Pulse Oximetry (%) 97 10/02/18 10:00 Constitutional: Yes: Well Nourished, Calm Eyes: Yes: WNL HENT: Yes: WNL Neck: Yes: WNL Cardiovascular: Yes: Pulse Irregular, S1, S2 Respiratory: Yes: Diminished Gastrointestinal: Yes: Normal Bowel Sounds, Soft Extremities: Yes: Erythema Edema: Yes Labs: CBC, BMP 10/02/18 06:00 10/02/18 06:00 INR, PTT INR 2.14 (0.83-1.09) H 09/23/18 09:15 Problem List - Problems (1) Troponin I above reference range Code(s): R74.8 - ABNORMAL LEVELS OF OTHER SERUM ENZYMES (2) CHF (congestive heart failure) Code(s): I50.9 - HEART FAILURE, UNSPECIFIED (3) COPD (chronic obstructive pulmonary disease) Code(s): J44.9 - CHRONIC OBSTRUCTIVE PULMONARY DISEASE, UNSPECIFIED (4) Elevated troponin Code(s): R74.8 - ABNORMAL LEVELS OF OTHER SERUM ENZYMES (5) Pneumonia Code(s): J18.9 - PNEUMONIA, UNSPECIFIED ORGANISM Qualifiers: (6) Acute on chronic systolic heart failure Code(s): I50.23 - ACUTE ON CHRONIC SYSTOLIC (CONGESTIVE) HEART FAILURE (7) Atrial fibrillation Code(s): I48.91 - UNSPECIFIED ATRIAL FIBRILLATION (8) CAD S/P percutaneous coronary angioplasty Code(s): I25.10 - ATHSCL HEART DISEASE OF [place] CORONARY ARTERY W/O ANG PCTRS; Z98.61 - CORONARY ANGIOPLASTY STATUS (9) Cellulitis Code(s): L03.90 - CELLULITIS, UNSPECIFIED (10) Cough Code(s): R05 - COUGH (11) Diabetes mellitus Code(s): E11.9 - TYPE 2 DIABETES MELLITUS WITHOUT COMPLICATIONS Qualifiers: Diabetes mellitus type: type 2 (12) H/O heart artery stent Code(s): Z95.5 - PRESENCE OF CORONARY ANGIOPLASTY IMPLANT AND GRAFT (13) Hematuria Code(s): R31.9 - HEMATURIA, UNSPECIFIED Qualifiers: Hematuria type: unspecified type Qualified Code(s): R31.9 - Hematuria, unspecified Assessment/Plan IMP DYSPNEA improving ACUTE ON CHRONIC CHF BILATERAL LOWER EXT CELLULITIS improving COPD COUGH,CONGESTION R/O PNEUMONIA ASHD S/P [place],S/P STENT AFIB S/P ABLATION DM HLD + TROPONIN PLAN IV LASIX INHALED BRONCHODILATORS ABX PER ID DAILY WT DR GOMEZ Problem List - Problems (1) Troponin I above reference range Code(s): R74.8 - ABNORMAL LEVELS OF OTHER SERUM ENZYMES (2) CHF (congestive heart failure) Code(s): I50.9 - HEART FAILURE, UNSPECIFIED (3) COPD (chronic obstructive pulmonary disease) Code(s): J44.9 - CHRONIC OBSTRUCTIVE PULMONARY DISEASE, UNSPECIFIED (4) Elevated troponin Code(s): R74.8 - ABNORMAL LEVELS OF OTHER SERUM ENZYMES (5) Pneumonia Code(s): J18.9 - PNEUMONIA, UNSPECIFIED ORGANISM Qualifiers: (6) Acute on chronic systolic heart failure Code(s): I50.23 - ACUTE ON CHRONIC SYSTOLIC (CONGESTIVE) HEART FAILURE (7) Atrial fibrillation Code(s): I48.91 - UNSPECIFIED ATRIAL FIBRILLATION (8) CAD S/P percutaneous coronary angioplasty Code(s): I25.10 - ATHSCL HEART DISEASE OF [place] CORONARY ARTERY W/O ANG PCTRS; Z98.61 - CORONARY ANGIOPLASTY STATUS (9) Cellulitis Code(s): L03.90 - CELLULITIS, UNSPECIFIED (10) Cough Code(s): R05 - COUGH (11) Diabetes mellitus Code(s): E11.9 - TYPE 2 DIABETES MELLITUS WITHOUT COMPLICATIONS Qualifiers: Diabetes mellitus type: type 2 (12) H/O heart artery stent Code(s): Z95.5 - PRESENCE OF CORONARY ANGIOPLASTY IMPLANT AND GRAFT (13) Hematuria Code(s): R31.9 - HEMATURIA, UNSPECIFIED Qualifiers: Hematuria type: unspecified type Qualified Code(s): R31.9 - Hematuria, unspecified
[2018-10-02] MEDS: VANCOMYCIN 1 GRAM (PRE-DOCKED) 1,000 MG/250 ML BAG IVPB SCH (13:29)
--- NOTE | 2018-10-02 14:20 | DS ---
Physical Examination Vital Signs: Vital Signs Temperature 98.8 F 10/02/18 10:00 Pulse Rate 78 10/02/18 10:00 Respiratory Rate 18 10/02/18 10:00 Blood Pressure 139/76 10/02/18 10:00 O2 Sat by Pulse Oximetry (%) 97 10/02/18 10:00 Findings/Remarks: The patient is a 63-year-old man, we have a history of diabetes, hypertension, hyperlipidemia, coronary artery disease and myocardial infarction, prior stents , status post atrial fibrillation ablation 10/04/2017, atrial flutter, COPD, systolic heart failure, chronic leg edema, now presenting with URI symptoms, fevers, leg edema and shortness of breath. No chest pains. Constitutional: Yes: Well Nourished, No Distress, Calm Cardiovascular: Yes: Pulse Irregular Respiratory: Yes: Regular Gastrointestinal: Yes: Normal Bowel Sounds, Soft Musculoskeletal: Yes: WNL Extremities: Yes: WNL Edema: No Peripheral Pulses WNL: Yes Neurological: Yes: Alert, Oriented Psychiatric: Yes: Alert, Oriented Labs: CBC, BMP 10/02/18 06:00 10/02/18 06:00 Discharge Summary Reason For Visit: CAD,CHF,COPD,PNA Current Active Problems Anemia (Acute) CHF (congestive heart failure) (Acute) COPD (chronic obstructive pulmonary disease) (Acute) Elevated troponin (Acute) Pneumonia (Acute) Sepsis (Acute) Troponin I above reference range (Acute) Hospital Course: Laboratory Last Values WBC 9.2 K/mm3 (4.0-10.0) 10/02/18 06:00 RBC 3.83 M/mm3 (4.00-5.60) L 10/02/18 06:00 Hgb 9.6 GM/dL (11.7-16.9) L 10/02/18 06:00 Hct 30.1 % (35.4-49) L 10/02/18 06:00 MCV 78.7 fl (80-96) L 10/02/18 06:00 MCH 25.1 pg (25.7-33.7) L 10/02/18 06:00 MCHC 31.9 g/dl (32.0-35.9) L 10/02/18 06:00 RDW 16.1 % (11.9-15.9) H 10/02/18 06:00 Plt Count 406 K/MM3 (134-434) 10/02/18 06:00 MPV 8.7 fl (7.5-11.1) 10/02/18 06:00 Absolute Neuts (auto) 6.4 K/mm3 (1.5-8.0) 10/02/18 06:00 Neutrophils % 69.6 % (42.8-82.8) 10/02/18 06:00 Lymphocytes % 17.1 % (8-40) 10/02/18 06:00 Monocytes % 11.2 % (3.8-10.2) H 10/02/18 06:00 Eosinophils % 1.3 % (0-4.5) 10/02/18 06:00 Basophils % 0.8 % (0-2.0) 10/02/18 06:00 Nucleated RBC % 0 % (0-0) 10/02/18 06:00 PT with INR 25.40 SEC (9.7-13.0) H 09/23/18 09:15 INR 2.14 (0.83-1.09) H 09/23/18 09:15 PTT (Actin FS) 31.2 SECONDS (25.2-36.5) 09/23/18 09:15 Sodium 141 mmol/L (136-145) 10/02/18 06:00 Potassium 3.9 mmol/L (3.5-5.1) 10/02/18 06:00 Chloride 104 mmol/L (98-107) 10/02/18 06:00 Carbon Dioxide 27 mmol/L (21-32) 10/02/18 06:00 Anion Gap 10 MMOL/L (8-16) 10/02/18 06:00 BUN 26 mg/dL (7-18) H 10/02/18 06:00 Creatinine 1.2 mg/dL (0.55-1.3) 10/02/18 06:00 Creat Clearance w eGFR > 60 (>60) 10/02/18 06:00 POC Glucometer 203 UNITS (80-120) 10/02/18 11:56 Random Glucose 52 mg/dL (74-106) L 10/02/18 06:00 Hemoglobin A1c % 9.7 % (4.2-6.3) H 10/01/18 06:00 Lactic Acid 0.9 mmol/L (0.4-2.0) 09/23/18 13:23 Calcium 8.3 mg/dL (8.5-10.1) L 10/02/18 06:00 Iron 28 ug/dL (38-169) L 09/30/18 05:45 TIBC 231 ug/dL (250-450) L 09/30/18 05:45 Iron Saturation 12 % (15-55) L 09/30/18 05:45 Ferritin 77.0 ng/ml (8-388) 09/30/18 05:45 Total Bilirubin 2.0 mg/dL (0.2-1) H 10/02/18 06:00 AST 26 U/L (15-37) 10/02/18 06:00 ALT 34 U/L (13-61) 10/02/18 06:00 Alkaline Phosphatase 157 U/L (45-117) H 10/02/18 06:00 Troponin I 0.37 ng/ml (0.00-0.05) H 09/24/18 15:30 B-Natriuretic Peptide 12990.6 pg/ml (5-125) H 09/23/18 09:15 Total Protein 5.9 g/dl (6.4-8.2) L 10/02/18 06:00 Albumin 2.2 g/dl (3.4-5.0) L 10/02/18 06:00 Vitamin B12 1049 pg/ml (193-986) H 09/30/18 05:45 Urine Color Yellow 09/23/18 09:15 Urine Appearance Clear 09/23/18 09:15 Urine pH 6.0 (5.0-8.0) 09/23/18 09:15 Ur Specific [place] 1.012 (1.010-1.035) 09/23/18 09:15 Urine Protein 2+ (NEGATIVE) H 09/23/18 09:15 Urine Glucose (UA) 1+ (NEGATIVE) H 09/23/18 09:15 Urine Ketones Negative (NEGATIVE) 09/23/18 09:15 Urine Blood 1+ (NEGATIVE) H 09/23/18 09:15 Urine Nitrite Negative (NEGATIVE) 09/23/18 09:15 Urine Bilirubin Negative (<2.0 mg/dL) 09/23/18 09:15 Urine Urobilinogen Negative mg/dL (0.2-1.0) 09/23/18 09:15 Ur Leukocyte Esterase Negative (NEGATIVE) 09/23/18 09:15 Urine WBC (Auto) <1 /hpf (3-5) 09/23/18 09:15 Urine RBC (Auto) 15 /hpf (0-3) 09/23/18 09:15 Hyaline Casts 4 /lpf 09/23/18 09:15 Urine Mucus Rare 09/23/18 09:15 Vancomycin Pre-Dose 18.7 ug/ml (18-26) 10/01/18 21:20 Digoxin 0.50 ng/ml (0.8-2.0) L 09/30/18 05:45 Influenza A (Rapid) Negative 09/23/18 09:17 Influenza B (Rapid) Negative 09/23/18 09:17 Microbiology 09/23/18 09:15 Blood - Peripheral Venous Blood Culture - Final NO GROWTH AFTER 5 DAYS INCUBATION 09/23/18 09:05 Blood - Peripheral Venous Blood Culture - Final NO GROWTH AFTER 5 DAYS INCUBATION 09/23/18 19:40 Sputum - Expectorated Gram Stain - Final 09/23/18 19:40 Sputum - Expectorated Sputum Culture - Final NORMAL RESPIRATORY KATI 09/23/18 19:40 Urine For Antigen Detection Legionella Antigen - Final 09/23/18 19:40 Urine For Antigen Detection Streptococcus pneumoniae Antigen (M - Final 09/23/18 09:15 Urine - Urine Clean Catch Urine Culture - Final Condition: Stable - Instructions Referrals: Harinder Hardy MD [Primary Care Provider] - Disposition: VNS/HOME HEALTH CARE - Home Medications Comprehensive Discharge Medication List: Ambulatory Orders Aspirin [ASA -] 81 mg PO DAILY #0 tab 07/11/17 Glimepiride [Amaryl -] 4 mg PO DAILY@0700 #0 tab 07/11/17 Simvastatin [Zocor -] 20 mg PO DAILY #0 tab 07/11/17 Metoprolol Succinate [Toprol XL -] 100 mg PO DAILY 10/26/17 Rivaroxaban [Xarelto -] 20 mg PO DAILY 10/26/17 Tamsulosin HCl [Flomax -] 0.4 mg PO DAILY 10/26/17 Ipratropium 0.02% Nebulizer [Atrovent 0.02% Nebulizer -] 1 amp NEB RQID #120 amp 11/02/17 Digoxin [Lanoxin -] 0.125 mg PO DAILY #30 tablet MDD 1 05/09/18 traMADol HCL [Ultram -] 50 mg PO Q6H PRN #10 tablet MDD 4 05/09/18 Sacubitril/Valsartan [Entresto 49 mg-51 mg Tablet] 1 tab PO DAILY 08/27/18 Furosemide [Lasix] 40 mg PO DAILY #30 tab 08/30/18 Insulin Glargine,Hum.rec.anlog [Basaglar Kwikpen U-100] 30 unit SQ BID #1 ea 07/09 Acetaminophen [Tylenol .Regular Strength -] 650 mg PO Q6H PRN tablet 10/02/18 Aspirin Coated [Ecotrin -] 81 mg PO DAILY tablet.ec 10/02/18 Gabapentin [Neurontin -] 300 mg PO BID #60 capsule 10/02/18 Glimepiride [Amaryl -] 4 mg PO DAILY@0700 tablet 10/02/18 Isosorbide Mononitrate [Imdur -] 30 mg PO DAILY #30 tab.sr.24h 10/02/18 Nystatin/Triamcinolone Top Cr [Mycolog II -] 2 applic TP BID #45 g 10/02/18 Potassium Chloride [K-Dur -] 10 meq PO DAILY #30 tablet.er 10/02/18 Sacubitril/Valsartan [Entresto 49 mg-51 mg Tablet] 1 tab PO BID tablet Sulfamethoxazole/Trimethoprim [Bactrim DS -] 1 each PO BID #14 tablet 10/02/18
[2018-10-02 14:33] VITALS: BP 151/87; PULSE 77; TEMP 98
[2018-10-02] MEDS: RIVAROXABAN 20 MG TABLET PO SCH (18:16)
--- NOTE | 2018-10-02 23:41 | CONSULT ---
Consult Consult Specialty:: endocrine Referred by:: dr.ammir belle Reason for Consultation:: diabetes mellitus - History of Present Illness Chief Complaint: high sugar History of Present Illness: 63 yo M with a PMH of recent MRSA and admission, COPD not on home oxygen, CAD s/ p stent, diastolic CHF, Afib (s/p ablation), DM, HTN, HLD, BPH who presented to the ED with the chief complaints of chronic leg pain and edema despite wearing compression stockings as well as chest pain, productive cough with elevated blood sugars without eating much requiring insulin adjustments. - History Source History Provided By: Patient - Past Medical History Cardio/Vascular: Yes: AFIB, CAD, CHF, HTN, Hyperlipdemia, [place] Pulmonary: Yes: COPD, Other (pleural effusion). No: O2 Dependent Infectious Disease: Yes: MRSA. 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 History of Recent Travel: No Home Medications - Allergies Allergies/Adverse Reactions: Allergies Allergy/AdvReac Type Severity Reaction Status Date / Time No Known Allergies Allergy Verified 09/23/18 08:15 - Home Medications Home Medications: Ambulatory Orders Aspirin [ASA -] 81 mg PO DAILY #0 tab 07/11/17 Glimepiride [Amaryl -] 4 mg PO DAILY@0700 #0 tab 07/11/17 Simvastatin [Zocor -] 20 mg PO DAILY #0 tab 07/11/17 Metoprolol Succinate [Toprol XL -] 100 mg PO DAILY 10/26/17 Rivaroxaban [Xarelto -] 20 mg PO DAILY 10/26/17 Tamsulosin HCl [Flomax -] 0.4 mg PO DAILY 10/26/17 Ipratropium 0.02% Nebulizer [Atrovent 0.02% Nebulizer -] 1 amp NEB RQID #120 amp 11/02/17 Digoxin [Lanoxin -] 0.125 mg PO DAILY #30 tablet MDD 1 05/09/18 traMADol HCL [Ultram -] 50 mg PO Q6H PRN #10 tablet MDD 4 05/09/18 Sacubitril/Valsartan [Entresto 49 mg-51 mg Tablet] 1 tab PO DAILY 08/27/18 Furosemide [Lasix] 40 mg PO DAILY #30 tab 08/30/18 Insulin Glargine,Hum.rec.anlog [Basaglar Kwikpen U-100] 30 unit SQ BID #1 ea 07/09 Acetaminophen [Tylenol .Regular Strength -] 650 mg PO Q6H PRN tablet 10/02/18 Aspirin Coated [Ecotrin -] 81 mg PO DAILY tablet.ec 10/02/18 Gabapentin [Neurontin -] 300 mg PO BID #60 capsule 10/02/18 Glimepiride [Amaryl -] 4 mg PO DAILY@0700 tablet 10/02/18 Isosorbide Mononitrate [Imdur -] 30 mg PO DAILY #30 tab.sr.24h 10/02/18 Nystatin/Triamcinolone Top Cr [Mycolog II -] 2 applic TP BID #45 g 10/02/18 Potassium Chloride [K-Dur -] 10 meq PO DAILY #30 tablet.er 10/02/18 Sacubitril/Valsartan [Entresto 49 mg-51 mg Tablet] 1 tab PO BID tablet Sulfamethoxazole/Trimethoprim [Bactrim DS -] 1 each PO BID #14 tablet 10/02/18 Tramadol HCl 50 mg PO BID PRN #10 tablet MDD 2 10/02/18 Family Disease History - Family Disease History Family Disease History: Other: Father (dialysis) Review of Systems - Review of Systems Constitutional: reports: Loss of Appetite, Weakness Eyes: reports: Blurred Vision HENT: reports: No Symptoms Neck: reports: No Symptoms Cardiovascular: reports: Edema, Palpitations, Shortness of Breath Respiratory: reports: Exercise Intolerance Gastrointestinal: reports: Bloating Genitourinary: reports: No Symptoms Breasts: reports: No Symptoms Reported Musculoskeletal: reports: Extremity Pain, Muscle Pain, Muscle Cramps, Muscle Weakness Integumentary: reports: Change in Color, Erythema, Pruritis, Rash Neurological: reports: Numbness, Weakness Endocrine: reports: Excessive Sweating, Unexplained Weight Gain Physical Exam Vital Signs: Vital Signs Temperature 98.0 F 10/02/18 14:10 Pulse Rate 77 10/02/18 14:10 Respiratory Rate 16 10/02/18 14:10 Blood Pressure 151/87 10/02/18 14:10 O2 Sat by Pulse Oximetry (%) 97 10/02/18 10:00 Constitutional: Yes: Anxious Eyes: Yes: EOM Intact HENT: Yes: Normocephalic Neck: Yes: Trachea Midline Cardiovascular: Yes: Tachycardia, Varicosities Respiratory: Yes: Orthopnea, Rhonchi, SOB, Tachypnea Gastrointestinal: Yes: Normal Bowel Sounds ...Rectal Exam: Yes: Deferred Renal/: Yes: WNL Breast(s): Yes: WNL Musculoskeletal: Yes: Joint Stiffness, Muscle Pain, Muscle Weakness Extremities: Yes: Cool, Delayed Capillary Refill, Erythema Edema: LLE: 1+, RLE: 1+ Neurological: Yes: Alert, Oriented Labs: CBC, BMP 10/02/18 06:00 10/02/18 06:00 Assessment/Plan diabetes mellitus hyperglycemia/diabetic neuropathy htn ashd, chf cad/ celulitis diabetic venous vascular disease Abnormal Lab Results 10/02/18 10/02/18 06:00 06:00 RBC 3.83 L Hgb 9.6 L Hct 30.1 L MCV 78.7 L MCH 25.1 L MCHC 31.9 L RDW 16.1 H Monocytes % 11.2 H BUN 26 H Random Glucose 52 L Calcium 8.3 L Total Bilirubin 2.0 H Alkaline Phosphatase 157 H Total Protein 5.9 L Albumin 2.2 L Laboratory Results - last 24 hr 10/02/18 10/02/18 10/02/18 05:34 06:00 06:00 WBC 9.2 RBC 3.83 L Hgb 9.6 L Hct 30.1 L MCV 78.7 L MCH 25.1 L MCHC 31.9 L RDW 16.1 H Plt Count 406 MPV 8.7 Absolute Neuts (auto) 6.4 Neutrophils % 69.6 Lymphocytes % 17.1 Monocytes % 11.2 H Eosinophils % 1.3 Basophils % 0.8 Nucleated RBC % 0 Sodium 141 Potassium 3.9 Chloride 104 Carbon Dioxide 27 Anion Gap 10 BUN 26 H Creatinine 1.2 Creat Clearance w eGFR > 60 POC Glucometer 68 Random Glucose 52 L Calcium 8.3 L Total Bilirubin 2.0 H AST 26 ALT 34 Alkaline Phosphatase 157 H Total Protein 5.9 L Albumin 2.2 L 10/02/18 10/02/18 10/02/18 06:04 11:56 14:33 WBC RBC Hgb Hct MCV MCH MCHC RDW Plt Count MPV Absolute Neuts (auto) Neutrophils % Lymphocytes % Monocytes % Eosinophils % Basophils % Nucleated RBC % Sodium Potassium Chloride Carbon Dioxide Anion Gap BUN Creatinine Creat Clearance w eGFR POC Glucometer 89 203 60 Random Glucose Calcium Total Bilirubin AST ALT Alkaline Phosphatase Total Protein Albumin plan: bgm qid novolog insulin doses levemir as outlined to patient am dose /pm dose follow up for cgm outpatient dexcom g6
[2018-10-03] MEDS ORDERED: INSULIN (LEVEMIR) 100 UNITS/ML UNITS SQ SCH (07:00)
== END 2018-10-02 19:15 | disposition home health service (06) | DRG 194 ==
LOC: JER 08:01 → JERBED 11:58 → J4S 19:22
PROVIDERS: ADMIT Family Medicine; ATTEND Family Medicine
DX: I11.0 Hypertensive heart disease with heart failure (principal); J44.9 Chronic obstructive pulmonary disease, unspecified; I50.23 Acute on chronic systolic (congestive) heart failure; L03.116 Cellulitis of left lower limb; L03.115 Cellulitis of right lower limb; I48.92 Unspecified atrial flutter; E11.42 Type 2 diabetes mellitus with diabetic polyneuropathy; E11.65 Type 2 diabetes mellitus with hyperglycemia; E11.51 Type 2 diabetes mellitus with diabetic peripheral angiopathy without gangrene; L97.919 Non-pressure chronic ulcer of unspecified part of right lower leg with unspecified severity; I25.10 Atherosclerotic heart disease of native coronary artery without angina pectoris; I48.91 Unspecified atrial fibrillation; E78.5 Hyperlipidemia, unspecified; N40.0 Benign prostatic hyperplasia without lower urinary tract symptoms; I25.2 Old myocardial infarction; Z79.4 Long term (current) use of insulin; Z95.5 Presence of coronary angioplasty implant and graft; I24.8 Other forms of acute ischemic heart disease; D64.9 Anemia, unspecified; B35.1 Tinea unguium; I87.2 Venous insufficiency (chronic) (peripheral)
CPT/HCPCS: 36415; 71045-TC-FY; 71046-TC-FY; 73590-TC-RT-FY; 80048; 80053; 80162; 81003; 81015; 82607; 82728; 82962; 83036; 83540; 83550; 83605; 83880; 84484; 85025; 85027; 85610; 85730; 87040; 87070; 87086; 87205; 87804; 87899; 93005; 93010; 93970-TC; 94010; 94640; 99284-25; G0480; J7030

== ENCOUNTER 2019-07-10 12:42 | Inpatient (IN) | payer OTHER ==
--- NOTE | 2019-07-10 13:30 | PDOC ---
History of Present Illness - General Chief Complaint: Shortness of Breath Stated Complaint: SOB Time Seen by Provider: 07/10/19 13:28 History Source: Patient Exam Limitations: No Limitations - History of Present Illness Initial Comments: Pt is a 64 yo M, with PMH of Chi-John syndrome, HTN, HLD, DM (with chronic venous insufficiency in b/l LE and MRSA in the past), COPD (on albuterol), dCHF (last EF 55%), CAD (s/p stent), AFib (post ablation on xarelto), and anemia, who is presenting with complaints of LE edema, chest "tightness" and worsening SOB from baseline. PT states he took his albuterol with minimal relief. PT states the SOB is worse at night "I have to turn the fan on" and on exertion ( he can now only swim "half a lap at the pool" from his usual 20). Pt denies any recent URI symptoms. PT denies any recent fevers/chills, headache, vision changes, syncope, chest pain, palpitations, nausea/vomiting, abdominal pain, urinary symptoms, or diarrhea/constipation. Allergies: NKDA PCP: Dr. Hayley Harvey: Dr. Lund No recent stress test, last echo 2018. Social: Pt smoked 15 pack-years, quit 3 years ago. Pt denies any alcohol or drug use. Pt denies any recent travel or sick contacts. Surgical: cardiac stent, recent venous ablation on R LE, A fib ablation. Family: no relevant history. 07/10/19 15:36 Past History - Travel Traveled outside of the country in the last 30 days: No Close contact w/someone who was outside of country & ill: No - Past Medical History Allergies/Adverse Reactions: Allergies Allergy/AdvReac Type Severity Reaction Status Date / Time No Known Allergies Allergy Verified 11/22/18 08:56 Home Medications: Ambulatory Orders Simvastatin [Zocor -] 20 mg PO DAILY #0 tab 07/11/17 Metoprolol Succinate [Toprol XL -] 100 mg PO DAILY 10/26/17 Rivaroxaban [Xarelto -] 20 mg PO DAILY 10/26/17 Tamsulosin HCl [Flomax -] 0.4 mg PO DAILY 10/26/17 Furosemide [Lasix] 40 mg PO DAILY #30 tab 08/30/18 Acetaminophen [Tylenol .Regular Strength -] 650 mg PO Q6H PRN tablet 10/02/18 Aspirin Coated [Ecotrin -] 81 mg PO DAILY tablet.ec 10/02/18 Glimepiride [Amaryl -] 4 mg PO DAILY@0700 tablet 10/02/18 Isosorbide Mononitrate [Imdur -] 30 mg PO DAILY #30 tab.sr.24h 10/02/18 Sacubitril/Valsartan [Entresto 49 mg-51 mg Tablet] 1 tab PO BID tablet Insulin (Novolog 70/30) [Novolog Mix 70/30 Vial] 0 ml SQ ASDIR 07/10/19 Insulin Glargine,Hum.rec.anlog [Lantus Solostar PEN (NF)] 0 units SQ ASDIR 07/10 Insulin Lispro Protamin/Lispro [Humalog Mix 75-25 Kwikpen] 0 unit SQ ASDIR 07/10 Nystatin/Triamcin [Nystatin-Triamcinolone Cream] 15 gm TP ASDIR 07/10/19 Oxybutynin Chloride [Oxybutynin Chloride ER] 10 mg PO DAILY 07/10/19 Tramadol HCl 50 mg PO BID 07/10/19 Anemia: No Asthma: No Cancer: No Cardiac Disorders: Yes (A-fib) CVA: No COPD: Yes CHF: Yes Dementia: No Diabetes: Yes (niddm) GI Disorders: No Disorders: Yes (ENLARGE PROSTATE) HTN: Yes Hypercholesterolemia: Yes Liver Disease: Yes (CHI JOHN SYNDROME) Seizures: No Thyroid Disease: No - Surgical History Abdominal Surgery: Yes (Hernia repair x2) Appendectomy: No Cardiac Surgery: Yes (,ABLATION FOR AFIB ON 07/05/18) Cholecystectomy: Yes Lung Surgery: No Neurologic Surgery: No Orthopedic Surgery: No - Immunization History Immunization Up to Date: Yes - Suicide/Smoking/Psychosocial Hx Smoking History: Former smoker Have you smoked in the past 12 months: No Number of Cigarettes Smoked Daily: 4 If you are a former smoker, when did you quit?: 2016 'Breaking Loose' booklet given: 10/26/17 Hx Alcohol Use: No Drug/Substance Use Hx: No Substance Use Type: None Hx Substance Use Treatment: No Respiratory Specific PMHX - Complaint Specific PMHX Angina: No Bronchitis: Yes Pneumonia: Yes Pulmonary Embolus: No TB (Tuberculosis): No Review of Systems - Review of Systems Able to Perform ROS?: Yes Is the patient limited Qatari proficient: No Constitutional: Yes: Weight Stable. No: Chills, Diaphoresis, Fever, Loss of Appetite, Malaise, Weakness HEENTM: No: Recent change in vision, Nose Congestion, Throat Pain, Throat Swelling, Difficulty Swallowing Respiratory: Yes: Orthopnea, Shortness of Breath, SOB with Exertion. No: Cough , SOB at Rest, Productive cough, Hemoptysis Cardiac (ROS): Yes: Chest Tightness. No: Chest Pain, Edema, Irregular Heart Rate, Lightheadedness, Palpitations, Syncope ABD/GI: No: Constipated, Diarrhea, Nausea, Poor Appetite, Poor Fluid Intake, Vomiting : No: Burning, Dysuria, Pain, Urgency Musculoskeletal: No: Back Pain, Joint Pain, Muscle Pain, Muscle Weakness Integumentary: No: Rash Neurological: No: Headache, Numbness, Weakness, Unsteady Gait, Dizziness Psychiatric: No: Sleep Pattern Change, Change in Appetite Endocrine: No: Increased Urine, Change in Weight Hematologic/Lymphatic: No: Anemia, Blood Clots, Easy Bleeding, Easy Bruising All Other Systems: Reviewed and Negative *Physical Exam - Physical Exam Comments: 07/10/19 15:41 92% on RA (improved to 98% on 2L NC), HR and BP stable, afebrile. Pt in NAD, can speak in full sentences. Normal body habitus. Pt alert and oriented x3. grants and contracts assistant generally intact, muscular strength and sensation intact. No midline spinal tenderness, step-offs, or crepitus. Head normocephalic, atraumatic. Eyes PERRLA, EOMI. Oropharynx without erythema or exudates, no LAD b/l. No nasal congestion, hearing intact. +b/l pitting edema to upper shins. Clear heart sounds, S1/S2, no JVD, or heart murmur. Coarse breath sounds b/l lung bases, with no active wheezing or accessory muscle use. C No abdominal or CVA tenderness to palpation, no rebound, no guarding. Abdomen soft, non-distended, and with normoactive bowel sounds. B/l erythema of lower extremities (baseline per pt with chronic inusfficiency), no active weeping or bleeding from recent RLE ablation site. No other rashes noted. 07/10/19 16:36 ED Treatment Course - LABORATORY CBC & Chemistry Diagram: 07/10/19 14:18 07/10/19 14:18 Medical Decision Making - Medical Decision Making Pt was seen at bedside, also will be seen by attending Dr. Lira. Pt presenting with worsening SOB from baseline x2 days, not improving with COPD medications, associated with orthopnea and exertion. Will evaluate for COPD vs CHF exacerbation vs ACS vs infection vs anemia. Pt hypoxia improved with O2, unlikely PE, no prior clots and on xarelto. Provided 2 L NC O2 for dyspnea. Will continue to reassess pt and monitor for symptomatic improvement. ECG: NSR, intervals WNL (HR 76, NJ 202, QRS 94, QTc 420). TWIs in V5-V6, I and aVL (no change from prior ECG 09/23/2018). 07/10/19 16:38 CBC/anemia WNL for pt CMP: BUN 26, Cr 1.3 (similar to pt baseline) Trop 0.24 with BNP 7729 -- improved from prior admission, pt does not clear troponin X-ray shows worsening congestion and given clinical picture, concerning for CHF exacerbation -- providing 40 mg IV lasix. Pt admitted to Dr. Weaver's service (Dr. Pritchard for Dr. Hardy). Pt stable and lying comfortably. 07/10/19 16:40 *DC/Admit/Observation/Transfer Diagnosis at time of Disposition: CAD S/P percutaneous coronary angioplasty CHF (congestive heart failure) Qualifiers: Heart failure type: unspecified Heart failure chronicity: unspecified Qualified Code(s): I50.9 - Heart failure, unspecified Dyspnea Qualifiers: Dyspnea type: orthopnea Qualified Code(s): R06.01 - Orthopnea - Discharge Dispostion Condition at time of disposition: Stable Decision to Admit order: Yes - Referrals - Patient Instructions - Post Discharge Activity
[2019-07-10 14:44] LABS: EOS % 1.7 % (0-4.5); HEMATOCRIT 28.9 % (35.4-49); HEMOGLOBIN 9.4 GM/dL (11.7-16.9); LYMPH % 20.6 % (8-40); MCHC 32.4 g/dl (32.0-35.9); MEAN CELL VOLUME 80.2 fl (80-96); MEAN PLT VOLUME 9.1 fl (7.5-11.1); MONO % 8.1 % (3.8-10.2); NEUT % 68.6 % (42.8-82.8); PLATELET COUNT 239 K/MM3 (134-434); RDW 15.2 % (11.9-15.9)
[2019-07-10 15:15] LABS: ALBUMIN 2.6 g/dl (3.4-5.0); BILIRUBIN,TOTAL 3.4 mg/dL (0.2-1); BLOOD UREA NITROGEN 26.4 mg/dL (7-18); CALCIUM 8.2 mg/dL (8.5-10.1); CREATININE 1.3 mg/dL (0.55-1.3); POTASSIUM 3.7 mmol/L (3.5-5.1); TOT PROT 5.4 g/dl (6.4-8.2)
--- NOTE | 2019-07-10 15:49 | PDOC ---
Attending Attestation - Resident Resident Name: Ginna Mello - ED Attending Attestation I have performed the following: I have examined & evaluated the patient, The case was reviewed & discussed with the resident, I agree w/resident's findings & plan, Exceptions are as noted - HPI HPI: 07/10/19 15:46 64 m with h/o becky-grabiel, HTN, HLD, DM, COPD, CHF, CAD, afib on xarelto, anemia, presenting to ED with leg swelling, chest pain, and SOB. Pt states that he has a chest tightness that is not relieved by his albuterol. Pt endorses SOB as well that is worse at night. Also reports worsening PICKETT. Denies F/C. - Physicial Exam PE: 07/10/19 15:48 GENERAL: Awake, alert, and fully oriented, in no acute distress. HEAD: No signs of trauma EYES: PERRLA, EOMI, sclera anicteric, conjunctiva clear ENT: Auricles normal inspection, hearing grossly normal, nares patent, oropharynx clear without exudates. Moist mucosa NECK: Nontender, no stepoffs, Normal ROM, supple, no lymphadenopathy, JVD, or masses LUNGS: Breath sounds equal, clear to auscultation bilaterally. No wheezes, and no crackles HEART: Regular rate and rhythm, normal S1 and S2, no murmurs, rubs or gallops ABDOMEN: Soft, nontender, normoactive bowel sounds. No guarding, no rebound. No masses EXTREMITIES: + PE BLE, No clubbing or cyanosis. No cords, erythema, or tenderness NEUROLOGICAL: Cranial nerves II through XII intact. 5/5 strength and sensation in all extremities, Normal speech, normal gait, normal cerebellar function SKIN: Warm, Dry, normal turgor, no rashes or lesions noted. - Medical Decision Making 07/10/19 15:48 64 M with SOB, chest pressure, leg swelling. Suspect CHF exacerbation. - Labs, trop, BNP - CXR
[2019-07-10] MEDS ORDERED: FUROSEMIDE 40 MG/4 ML INJECTABLE VIAL IVPUSH ONE (15:55)
[2019-07-10 16:22] LABS: INR 1.99 (0.83-1.09); PROTHROMBIN TIME (PATIENT) 23.7 SEC (9.7-13.0)
--- NOTE | 2019-07-10 16:25 | HP ---
Admitting History and Physical - Admission Chief Complaint: came in for shortness ofbreath History of Present Illness: Pt is a 64 yo M, with PMH of Emily-Js syndrome, HTN, HLD, DM (with chronic venous insufficiency in b/l LE and MRSA in the past), COPD (on albuterol), dCHF (last EF 55%), CAD (s/p stent), AFib (post ablation on xarelto), and anemia, who is presenting with complaints of LE edema, chest "tightness" and worsening SOB from baseline. PT states he took his albuterol with minimal relief. PT states the SOB is worse at night "I have to turn the fan on" and on exertion ( he can now only swim "half a lap at the pool" from his usual 20). Pt denies any recent URI symptoms. PT denies any recent fevers/chills, headache, vision changes, syncope, chest pain, palpitations, nausea/vomiting, abdominal pain, urinary symptoms, or diarrhea/constipation. in ER got iv lasix - Past Medical History Cardiovascular: Yes: AFIB, CAD, CHF, HTN, Hyperlipdemia, [place] Pulmonary: Yes: COPD, Other (pleural effusion). No: O2 Dependent Heme/Onc: Yes: Anemia Infectious Disease: Yes: MRSA. 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 of Recent Travel: No Home Medications - Allergies Allergies/Adverse Reactions: Allergies Allergy/AdvReac Type Severity Reaction Status Date / Time No Known Allergies Allergy Verified 11/22/18 08:56 - Home Medications Home Medications: Ambulatory Orders Simvastatin [Zocor -] 20 mg PO DAILY #0 tab 07/11/17 Metoprolol Succinate [Toprol XL -] 100 mg PO DAILY 10/26/17 Rivaroxaban [Xarelto -] 20 mg PO DAILY 10/26/17 Tamsulosin HCl [Flomax -] 0.4 mg PO DAILY 10/26/17 Furosemide [Lasix] 40 mg PO DAILY #30 tab 08/30/18 Acetaminophen [Tylenol .Regular Strength -] 650 mg PO Q6H PRN tablet 10/02/18 Aspirin Coated [Ecotrin -] 81 mg PO DAILY tablet.ec 10/02/18 Glimepiride [Amaryl -] 4 mg PO DAILY@0700 tablet 10/02/18 Isosorbide Mononitrate [Imdur -] 30 mg PO DAILY #30 tab.sr.24h 10/02/18 Sacubitril/Valsartan [Entresto 49 mg-51 mg Tablet] 1 tab PO BID tablet Insulin (Novolog 70/30) [Novolog Mix 70/30 Vial] 0 ml SQ ASDIR 07/10/19 Insulin Glargine,Hum.rec.anlog [Lantus Solostar PEN (NF)] 0 units SQ ASDIR 07/10 Insulin Lispro Protamin/Lispro [Humalog Mix 75-25 Kwikpen] 0 unit SQ ASDIR 07/10 Nystatin/Triamcin [Nystatin-Triamcinolone Cream] 15 gm TP ASDIR 07/10/19 Oxybutynin Chloride [Oxybutynin Chloride ER] 10 mg PO DAILY 07/10/19 Tramadol HCl 50 mg PO BID 07/10/19 Review of Systems - Review of Systems Respiratory: reports: Orthopnea, SOB, SOB on Exertion Musculoskeletal: reports: Other (leg swelling) Physical Examination Vital Signs: Vital Signs Temperature 97.4 F L 07/10/19 13:42 Pulse Rate 76 07/10/19 13:42 Respiratory Rate 16 07/10/19 13:42 Blood Pressure 166/88 07/10/19 13:42 O2 Sat by Pulse Oximetry (%) 100 07/10/19 13:42 Constitutional: Yes: Calm Cardiovascular: Yes: Regular Rate and Rhythm, S1, S2 Respiratory: Yes: Rales Gastrointestinal: Yes: Normal Bowel Sounds, Soft Extremities: Yes: Other (leg wound) Edema: Yes Neurological: Yes: Alert, Oriented Labs: CBC, BMP 07/10/19 14:18 07/10/19 14:18 Imaging - Results Chest X-ray: Report Reviewed Problem List - Problems (1) Acute on chronic systolic heart failure Assessment/Plan: iv lasix weights mentor lytes echo cardio consult Code(s): I50.23 - ACUTE ON CHRONIC SYSTOLIC (CONGESTIVE) HEART FAILURE (2) Atrial fibrillation Assessment/Plan: toprol xarelto Code(s): I48.91 - UNSPECIFIED ATRIAL FIBRILLATION (3) Diabetes mellitus Assessment/Plan: bgm levemir sliding scale [id number] Code(s): E11.9 - TYPE 2 DIABETES MELLITUS WITHOUT COMPLICATIONS Qualifiers: Diabetes mellitus type: type 2 (4) HLD (hyperlipidemia) Assessment/Plan: statin Code(s): E78.5 - HYPERLIPIDEMIA, UNSPECIFIED (5) Peripheral vascular disease of lower extremity with ulceration Assessment/Plan: dr rico Code(s): I73.9 - PERIPHERAL VASCULAR DISEASE, UNSPECIFIED; L97.909 - NON-PRS CHRONIC ULC UNSP PRT OF UNSP LOW LEG W UNSP SEVERITY
[2019-07-10] MEDS ORDERED: FUROSEMIDE 40 MG/4 ML INJECTABLE VIAL ONE (16:42)
[2019-07-10] MEDS: INSULIN SLIDING SCALE (NOVOLOG) 1 VIAL SQ SCH ×2 (16:51→21:43)
--- NOTE | 2019-07-10 17:22 | CON.CARD ---
Consult Consult Specialty:: Cardiology - History of Present Illness History of Present Illness: 64 M with dashawn COPD, Atrial flutter and fibrillation sp Ablations At [facility], DM and HTN. CAD was diagnosed in 2014 and he is post LAD stent. His last cath in 2017 showed severe small ramus intermedius and non-obstructive disease in RCA and LCx. LAD stent was patent. The patient is on chronic lasix and has occasional CHF exacerbations. For a few days reporting chest tightness with exertion after walking up a hill. symptoms resolve after resting. No orthopnea, PND but noticed more Lext swelling. He has been symptom free since presentation. He came to ER today because symptoms were worrying him. - History Source History Provided By: Patient Limitations to Obtaining History: No Limitations - Past Medical History Cardio/Vascular: Yes: AFIB, CAD, CHF, HTN, Hyperlipdemia, [place] Pulmonary: Yes: COPD, Other (pleural effusion). No: O2 Dependent Infectious Disease: Yes: MRSA. 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 History of Recent Travel: No Home Medications - Allergies Allergies/Adverse Reactions: Allergies Allergy/AdvReac Type Severity Reaction Status Date / Time No Known Allergies Allergy Verified 11/22/18 08:56 - Home Medications Home Medications: Ambulatory Orders Simvastatin [Zocor -] 20 mg PO DAILY #0 tab 07/11/17 Metoprolol Succinate [Toprol XL -] 100 mg PO DAILY 10/26/17 Rivaroxaban [Xarelto -] 20 mg PO DAILY 10/26/17 Tamsulosin HCl [Flomax -] 0.4 mg PO DAILY 10/26/17 Furosemide [Lasix] 40 mg PO DAILY #30 tab 08/30/18 Acetaminophen [Tylenol .Regular Strength -] 650 mg PO Q6H PRN tablet 10/02/18 Aspirin Coated [Ecotrin -] 81 mg PO DAILY tablet.ec 10/02/18 Glimepiride [Amaryl -] 4 mg PO DAILY@0700 tablet 10/02/18 Isosorbide Mononitrate [Imdur -] 30 mg PO DAILY #30 tab.sr.24h 10/02/18 Sacubitril/Valsartan [Entresto 49 mg-51 mg Tablet] 1 tab PO BID tablet Insulin (Novolog 70/30) [Novolog Mix 70/30 Vial] 0 ml SQ ASDIR 07/10/19 Insulin Glargine,Hum.rec.anlog [Lantus Solostar PEN (NF)] 0 units SQ ASDIR 07/10 Insulin Lispro Protamin/Lispro [Humalog Mix 75-25 Kwikpen] 0 unit SQ ASDIR 07/10 Nystatin/Triamcin [Nystatin-Triamcinolone Cream] 15 gm TP ASDIR 07/10/19 Oxybutynin Chloride [Oxybutynin Chloride ER] 10 mg PO DAILY 07/10/19 Tramadol HCl 50 mg PO BID 07/10/19 Review of Systems - Review of Systems Constitutional: reports: No Symptoms Eyes: reports: No Symptoms HENT: reports: No Symptoms Neck: reports: No Symptoms Cardiovascular: reports: Chest Pain, Edema, Shortness of Breath Respiratory: reports: Exercise Intolerance, SOB. denies: Cough Gastrointestinal: reports: No Symptoms Breasts: reports: No Symptoms Reported Musculoskeletal: reports: No Symptoms Vital Signs: Vital Signs Temperature 97.4 F L 07/10/19 13:42 Pulse Rate 76 07/10/19 13:42 Respiratory Rate 16 07/10/19 13:42 Blood Pressure 166/88 07/10/19 13:42 O2 Sat by Pulse Oximetry (%) 100 07/10/19 13:42 Constitutional: Yes: Well Nourished, No Distress, Calm Eyes: Yes: Conjunctiva Clear, EOM Intact HENT: Yes: Atraumatic, Normocephalic Neck: Yes: Supple, Trachea Midline Respiratory: Yes: Regular, CTA Bilaterally Gastrointestinal: Yes: Normal Bowel Sounds Cardiovascular: Yes: Regular Rate and Rhythm JVD: Yes Heart Sounds: Yes: S1, S2 Murmur: No: Systolic Murmur, Diastolic Murmur Edema: Yes Edema: LLE: 1+, RLE: 1+ - Other Data Labs, Other Data: CBC, BMP 07/10/19 14:18 07/10/19 14:18 INR, PTT INR 1.99 (0.83-1.09) H 07/10/19 14:18 Troponin, BNP 07/10/19 07/10/19 14:18 14:18 Troponin I 0.24 H B-Natriuretic Peptide 7729.7 H Troponin, BNP 07/10/19 07/10/19 14:18 14:18 Troponin I 0.24 H B-Natriuretic Peptide 7729.7 H Imaging - Results Chest X-ray: Report Reviewed (pulm congestion) Problem List - Problems (1) CAD S/P percutaneous coronary angioplasty Code(s): I25.10 - ATHSCL HEART DISEASE OF [place] CORONARY ARTERY W/O ANG PCTRS; Z98.61 - CORONARY ANGIOPLASTY STATUS (2) CHF (congestive heart failure) Code(s): I50.9 - HEART FAILURE, UNSPECIFIED Qualifiers: Heart failure type: unspecified Heart failure chronicity: unspecified Qualified Code(s): I50.9 - Heart failure, unspecified Assessment/Plan 64 yo M with CAD, DM, and HfPEF. Ho AF sp ablation Adm with new exertional angina. Has chronically elevated TP. Also elevated CPK- MB. 1. CAD: RO ACS Follow serial CPK and CK-MB in addition to troponin level ECG Echo Continue ASA cont Metoprolol 2. CHF Lasix 40mg qd IV Echo continue Entresto 3. Afib Resume Xarelto ECG and telemetry monitoring.
[2019-07-10 17:50] LABS: EPI CELLS 2.2 /HPF (0-5/HPF); HYALINE CASTS 8 /lpf (0-8); PH,URINE 6.5 (5.0-8.0); URINE APPEARANCE CLEAR; URINE BACTERIA 4.7 /hpf (NEGATIVE); URINE BILIRUBIN 2+ (NEGATIVE); URINE COLOR DK YELLOW; URINE GLUCOSE (UA) TRACE (NEGATIVE); URINE KETONE NEGATIVE (NEGATIVE); URINE LEUK ESTERASE NEGATIVE (NEGATIVE); URINE NITRITE NEGATIVE (NEGATIVE); URINE PROTEIN 4+ (NEGATIVE); URINE RBC 20 /hpf (0-4); URINE WBC 2 /hpf (0-5)
[2019-07-10] MEDS: RIVAROXABAN 20 MG TABLET PO SCH (19:51)
[2019-07-10] MEDS: ATORVASTATIN CA 40 MG TABLET (FP) PO SCH (21:43)
[2019-07-10] MEDS ORDERED: INSULIN (LEVEMIR) 100 UNITS/ML UNITS SQ SCH (22:00)
[2019-07-10] MEDS ORDERED: traMADol HCL 50 MG TABLET PO ONE (22:04)
[2019-07-11] MEDS: INSULIN SLIDING SCALE (NOVOLOG) 1 VIAL SQ SCH ×4 (06:51→22:22)
[2019-07-11] MEDS ORDERED: INSULIN (NOVOLOG MIX 70/30) 100 UNITS/ML MDV SQ SCH (07:00)
[2019-07-11 07:41] LABS: INR 1.19 (0.83-1.09); PROTHROMBIN TIME (PATIENT) 14.1 SEC (9.7-13.0)
[2019-07-11 07:43] LABS: ACTIVATED PTT 37.6 SECONDS (25.2-36.5)
[2019-07-11 08:02] LABS: IRON SERUM 33 ug/dL (50-175); TOTAL IRON BINDING CAPACITY 307 ug/dL (250-450)
[2019-07-11 08:03] LABS: BASO % 0.5 % (0-2.0); EOS % 1.4 % (0-4.5); HEMATOCRIT 31.9 % (35.4-49); HEMOGLOBIN 10.4 GM/dL (11.7-16.9); LYMPH % 13.7 % (8-40); MCH 26.2 pg (25.7-33.7); MCHC 32.4 g/dl (32.0-35.9); MEAN CELL VOLUME 80.6 fl (80-96); MEAN PLT VOLUME 9.7 fl (7.5-11.1); NEUT % 76.4 % (42.8-82.8); PLATELET COUNT 283 K/MM3 (134-434); RBC 3.96 M/mm3 (4.00-5.60); RDW 15.3 % (11.9-15.9); WHITE BLOOD COUNT 8.6 K/mm3 (4.0-10.0)
[2019-07-11 08:07] LABS: ALBUMIN 2.9 g/dl (3.4-5.0); BILIRUBIN,TOTAL 3.2 mg/dL (0.2-1); BLOOD UREA NITROGEN 28.9 mg/dL (7-18); CALCIUM 8.7 mg/dL (8.5-10.1); CREATININE 1.3 mg/dL (0.55-1.3); MAGNESIUM 1.8 mg/dL (1.8-2.4); N-TERMINAL BNP 7914.6 pg/ml (5-125); PHOSPHOROUS 4.4 mg/dL (2.5-4.9); POTASSIUM 3.9 mmol/L (3.5-5.1)
--- NOTE | 2019-07-11 08:41 | CONSULT ---
- Consultation REQUESTING PROVIDER: CONSULT REQUEST: We have been asked to surgically evaluate this patient for LE ulcers. PCP:Britany Weaver HISTORY OF PRESENT ILLNESS: 64 y/o M, w/ PMHX Emily-Js syndrome, HTN, HLD, DM, chronic venous insufficiency in b/l LE, H/O mrsa in the past, COPD (on albuterol), dCHF (last EF 55%), CAD (s/p stent), AFib (post ablation on xarelto), and anemia, now a/w complaints of LE edema, chest "tightness" and worsening SOB from baseline. Vascular consulted for b/l le ulcers. Pt reports he does not have any le ulcers at this time. States he had a "vein surgery" with Dr Mendoza 2 weeks ago (no documentation available in EMR). States he had some edema in his les, R>L and was seen by Dr Mendoza in the wound care clinic for a duplex 2 weeks ago. Reports duplex was negative. Denies cp/sob, n/v/d, palpitations at home. No h/o dvt. Has had multiple prior vein surgeries with Dr Mendoza in the past per pt. Has been ambulating at home though somewhat limited secondary to sob. PMHx: as above PSHx: as above Home Medications Medication Instructions Recorded Simvastatin [Zocor -] 20 mg PO DAILY #0 tab 07/11/17 Metoprolol Succinate [Toprol XL -] 100 mg PO DAILY 10/26/17 Rivaroxaban [Xarelto -] 20 mg PO DAILY 10/26/17 Tamsulosin HCl [Flomax -] 0.4 mg PO DAILY 10/26/17 Furosemide [Lasix] 40 mg PO DAILY #30 tab 08/30/18 Acetaminophen [Tylenol .Regular 650 mg PO Q6H PRN tablet 10/02/18 Strength -] Aspirin Coated [Ecotrin -] 81 mg PO DAILY tablet.ec 10/02/18 Glimepiride [Amaryl -] 4 mg PO DAILY@0700 tablet 10/02/18 Isosorbide Mononitrate [Imdur -] 30 mg PO DAILY #30 tab.sr.24h 10/02/18 Sacubitril/Valsartan [Entresto 49 1 tab PO BID tablet 10/02/18 mg-51 mg Tablet] Insulin (Novolog 70/30) [Novolog 0 ml SQ ASDIR 07/10/19 Mix 70/30 Vial] Insulin Glargine,Hum.rec.anlog 0 units SQ ASDIR 07/10/19 [Lantus Solostar PEN (NF)] Insulin Lispro Protamin/Lispro 0 unit SQ ASDIR 07/10/19 [Humalog Mix 75-25 Kwikpen] Nystatin/Triamcin 15 gm TP ASDIR 07/10/19 [Nystatin-Triamcinolone Cream] Oxybutynin Chloride [Oxybutynin 10 mg PO DAILY 07/10/19 Chloride ER] Tramadol HCl 50 mg PO BID 07/10/19 Allergies Allergy/AdvReac Type Severity Reaction Status Date / Time No Known Allergies Allergy Verified 11/22/18 08:56 REVIEW OF SYSTEMS: CONSTITUTIONAL: Absent: fever, chills CARDIOVASCULAR: Absent: syncope, palpitations RESPIRATORY: Absent: cough GASTROINTESTINAL: Absent: abdominal pain PHYSICAL EXAM: GENERAL: Awake, alert, and fully oriented, in no acute distress. HEAD: Normal with no signs of trauma. LOWER EXTREMITIES: B/L LEs with 2+ pitting edema, R>L. Mild erythema over b/l distal le's. No open ulcers. Small scab over anterior mcmanus on RLE. Compartments soft. 5/5 d/f and P/F. SILT b/l feet Vasc: 1+ b/l dp Vital Signs Temperature 97.9 F 07/11/19 06:00 Pulse Rate 69 07/11/19 06:00 Respiratory Rate 18 07/11/19 06:00 Blood Pressure 156/92 07/11/19 06:00 O2 Sat by Pulse Oximetry (%) 92 L 07/10/19 21:00 Lab Results WBC 8.6 K/mm3 (4.0-10.0) 07/11/19 06:36 RBC 3.96 M/mm3 (4.00-5.60) L 07/11/19 06:36 Hgb 10.4 GM/dL (11.7-16.9) L 07/11/19 06:36 Hct 31.9 % (35.4-49) L 07/11/19 06:36 MCV 80.6 fl (80-96) 07/11/19 06:36 MCHC 32.4 g/dl (32.0-35.9) 07/11/19 06:36 RDW 15.3 % (11.9-15.9) 07/11/19 06:36 Plt Count 283 K/MM3 (134-434) 07/11/19 06:36 Sodium 141 mmol/L (136-145) 07/11/19 06:36 Potassium 3.9 mmol/L (3.5-5.1) 07/11/19 06:36 Chloride 106 mmol/L (98-107) 07/11/19 06:36 Carbon Dioxide 29 mmol/L (21-32) 07/11/19 06:36 Anion Gap 6 MMOL/L (8-16) L 07/11/19 06:36 BUN 28.9 mg/dL (7-18) H 07/11/19 06:36 Creatinine 1.3 mg/dL (0.55-1.3) 07/11/19 06:36 Random Glucose 70 mg/dL (74-106) L 07/11/19 06:36 Calcium 8.7 mg/dL (8.5-10.1) 07/11/19 06:36 INR 1.19 (0.83-1.09) H 07/11/19 06:36 A/P: 64 y/o M, w/ PMHX Emily-Js syndrome, HTN, HLD, DM, chronic venous insufficiency in b/l LE, H/O mrsa in the past, COPD (on albuterol), dCHF (last EF 55%), CAD (s/p stent), AFib (post ablation on xarelto), and anemia, now a/w complaints of LE edema, chest "tightness" and worsening SOB from baseline. Vascular consulted for b/l le ulcers. B/L le's with edema, no ulcers -Venous duplex ordered for b/l les to r/o dvt- NEGATIVE FOR DVT B/L LES -Recommend elevation of b/l le's while at rest -Diuresis per medical team/cardiology d/w attending Dr Herman
[2019-07-11] MEDS: TAMSULOSIN HCL 0.4 MG CAP PO SCH (08:56)
[2019-07-11] MEDS ORDERED: DEXTROSE 50%-WATER 25 GM/50 ML DISP.SYRIN ONE (09:28)
[2019-07-11] MEDS: ISOSORBIDE MONONITRATE 30 MG TAB.SR.24H (FP) PO SCH (09:33)
[2019-07-11] MEDS: ASPIRIN 81 MG CHEWABLE TABLETS PO SCH (09:33)
[2019-07-11] MEDS: FUROSEMIDE 40 MG/4 ML INJECTABLE VIAL IVPUSH SCH (09:37)
--- NOTE | 2019-07-11 11:18 | PN ---
Progress Note, Physician Chief Complaint: low bgm today in ' got orange juice and then got dextrose amp sleepy in bed now BGM is 96 - Current Medication List Current Medications: Active Medications Aspirin (Asa -) 81 mg PO DAILY [facility] Last Admin: 07/11/19 09:33 Dose: 81 mg Atorvastatin Calcium (Lipitor -) 40 mg PO HS [facility] Last Admin: 07/10/19 21:43 Dose: 40 mg Furosemide (Lasix Injection -) 40 mg IVPUSH DAILY [facility] Last Admin: 07/11/19 09:37 Dose: 40 mg Insulin Aspart (Novolog Vial Sliding Scale -) 1 vial SQ ACHS [facility]; Protocol Last Admin: 07/11/19 06:51 Dose: Not Given Isosorbide Mononitrate (Imdur -) 30 mg PO DAILY [facility] Last Admin: 07/11/19 09:33 Dose: 30 mg Metoprolol Succinate (Toprol Xl -) 100 mg PO DAILY [facility] Last Admin: 07/11/19 09:33 Dose: 100 mg Rivaroxaban (Xarelto) 20 mg PO DAILY@1800 [facility] Last Admin: 07/10/19 19:51 Dose: Not Given Sacubitril/Valsartan (Entresto 49 Mg-51 Mg Tablet) 1 tab PO BID [facility] Tamsulosin HCl (Flomax -) 0.4 mg PO DAILY@0830 [facility] Last Admin: 07/11/19 08:56 Dose: 0.4 mg - Objective Vital Signs: Vital Signs Temperature 97.7 F 07/11/19 08:50 Pulse Rate 65 07/11/19 09:35 Respiratory Rate 16 07/11/19 09:35 Blood Pressure 173/79 H 07/11/19 09:35 O2 Sat by Pulse Oximetry (%) 92 L 07/10/19 21:00 Constitutional: Yes: Calm Cardiovascular: Yes: Pulse Irregular, S1, S2 Respiratory: Yes: Diminished Gastrointestinal: Yes: Normal Bowel Sounds, Soft Edema: Yes Neurological: Yes: Alert, Oriented Labs: CBC, BMP 07/11/19 06:36 07/11/19 06:36 INR, PTT INR 1.19 (0.83-1.09) H 07/11/19 06:36 Problem List - Problems (1) Acute on chronic systolic heart failure Assessment/Plan: iv lasix weights monitor lytes echo cardio consult Code(s): I50.23 - ACUTE ON CHRONIC SYSTOLIC (CONGESTIVE) HEART FAILURE (2) Atrial fibrillation Assessment/Plan: toprol xarelto Code(s): I48.91 - UNSPECIFIED ATRIAL FIBRILLATION (3) Diabetes mellitus Assessment/Plan: hypoglycemia start d510 iv fluids for a few hrs check bgm q2 hr till two reading above 120 stop levemir and novolog Code(s): E11.9 - TYPE 2 DIABETES MELLITUS WITHOUT COMPLICATIONS Qualifiers: Diabetes mellitus type: type 2 (4) HLD (hyperlipidemia) Assessment/Plan: statin Code(s): E78.5 - HYPERLIPIDEMIA, UNSPECIFIED (5) Peripheral vascular disease of lower extremity with ulceration Assessment/Plan: apprecite vasculr consult Code(s): I73.9 - PERIPHERAL VASCULAR DISEASE, UNSPECIFIED; L97.909 - NON-PRS CHRONIC ULC UNSP PRT OF UNSP LOW LEG W UNSP SEVERITY
[2019-07-11] MEDS ORDERED: DEXTROSE 5%-WATER - 1,000 ML IV SCH (11:30)
--- NOTE | 2019-07-11 11:40 | PN ---
Progress Note (short form) - Note Progress Note: PULMONARY CONSULTATION DICTATED 07/11/19 IMP DYSPNEA R/O ACS DIASTOLIC CHF COPD ASHD S/P STENT ANEMIA PULMONARY HTN AFIB S/P ABLATION DM HTN HLD PLAN LASIX O2 NEEDED ELIQUIS INHALED BRONCHODILATORS ? CARDIAC CATH F/U CHEST X-RAYS STRICT I+OS DR GOMEZ Problem List - Problems (1) Pulmonary HTN Code(s): I27.20 - PULMONARY HYPERTENSION, UNSPECIFIED (2) CHF (congestive heart failure) Code(s): I50.9 - HEART FAILURE, UNSPECIFIED Qualifiers: Heart failure type: unspecified Heart failure chronicity: unspecified Qualified Code(s): I50.9 - Heart failure, unspecified (3) Dyspnea Code(s): R06.00 - DYSPNEA, UNSPECIFIED Qualifiers: Dyspnea type: orthopnea Qualified Code(s): R06.01 - Orthopnea (4) Acute exacerbation of chronic obstructive pulmonary disease (COPD) Code(s): J44.1 - CHRONIC OBSTRUCTIVE PULMONARY DISEASE W (ACUTE) EXACERBATION (5) Anemia Code(s): D64.9 - ANEMIA, UNSPECIFIED (6) Atrial fibrillation Code(s): I48.91 - UNSPECIFIED ATRIAL FIBRILLATION (7) COPD (chronic obstructive pulmonary disease) Code(s): J44.9 - CHRONIC OBSTRUCTIVE PULMONARY DISEASE, UNSPECIFIED (8) H/O heart artery stent Code(s): Z95.5 - PRESENCE OF CORONARY ANGIOPLASTY IMPLANT AND GRAFT (9) PAF (paroxysmal atrial fibrillation) Code(s): I48.0 - PAROXYSMAL ATRIAL FIBRILLATION (10) ASHD (arteriosclerotic heart disease) Code(s): I25.10 - ATHSCL HEART DISEASE OF [place] CORONARY ARTERY W/O ANG PCTRS
[2019-07-11] MEDS ORDERED: IRON SUCROSE INJECTION 300 MG in SODIUM CHLORIDE 235 ML IVPB ONE (13:15)
--- NOTE | 2019-07-11 13:40 | ECHO ---
Name: VERA TOLBERT Exam:Adult Echocardiogram Study Date: 07/11/2019 11:13 AM Age: 64 yrs Reason For Study: ef Height: 72 in Weight: 192 lb BSA: 2.1 m2 MMode/2D Measurements & Calculations IVSd: 1.3 cm Ao root diam: 3.3 cm LVIDd: 4.6 cm LA dimension: 3.6 cm LVIDs: 3.4 cm LVPWd: 1.4 cm EDV(Teich): 97.6 ml LVOT diam: 2.0 cm ESV(Teich): 48.3 ml LAV (MOD-bp): 77.9 ml Doppler Measurements & Calculations MV E max lan: 96.0 cm/sec Ao V2 max: 111.3 cm/sec MV A max lan: 47.5 cm/sec Ao max P.0 mmHg MV E/A: 2.0 MV dec time: 0.19 sec MADY(V,D): 1.8 cm2 LV V1 max P.4 mmHg MR max lan: 345.8 cm/sec LV V1 max: 59.2 cm/sec MR max P.0 mmHg TR max lan: 366.5 cm/sec PA V2 max: 80.1 cm/sec TR max P.8 mmHg PA max P.6 mmHg Med Peak E' Lan: 7.1 cm/sec PI Vmax: 253.8 cm/sec Med E/e': 13.6 Lat Peak E' Lan: 8.5 cm/sec Lat E/e': 11.3 Left Ventricle There is mild concentric left ventricular hypertrophy. Ejection Fraction = 50-55%. Left Ventricular F illing pattern is normal for age. Right Ventricle The right ventricle is grossly normal size. The right ventricular systolic function is normal. Atria Normal left and right atrial size and function. Mitral Valve There is mild mitral valve thickening. There is no mitral valve stenosis. There is mild mitral regurg itation. Tricuspid Valve The tricuspid valve is normal in structure and function. There is mild to moderate tricuspid regurgit ation. Right ventricular systolic pressure is elevated at 40-50mmHg. Aortic Valve The aortic valve is trileaflet. No hemodynamically significant valvular aortic stenosis. No aortic regurgitation is present. Pulmonic Valve The pulmonic valve is not well seen, but is grossly normal. There is no pulmonic valvular stenosis. T race to mild pulmonic valvular regurgitation. Great Vessels The aortic root is normal size. Pericardium/Pleura There is no pericardial effusion. Interpretation Summary There is mild concentric left ventricular hypertrophy. Ejection Fraction = 50-55%. Left Ventricular Filling pattern is normal for age. The right ventricle is grossly normal size. The right ventricular systolic function is normal. There is mild mitral valve thickening. There is mild mitral regurgitation. There is mild to moderate tricuspid regurgitation. Right ventricular systolic pressure is elevated at 40-50mmHg. There is no pericardial effusion. MD Manning *Barry 07/11/2019 01:39 PM
[2019-07-11 13:41] LABS: BILIRUBIN,TOTAL 3.6 mg/dL (0.2-1); BLOOD UREA NITROGEN 27.1 mg/dL (7-18); CALCIUM 8.8 mg/dL (8.5-10.1); CREATININE 1.2 mg/dL (0.55-1.3); POTASSIUM 4.3 mmol/L (3.5-5.1); TOT PROT 6.4 g/dl (6.4-8.2)
--- NOTE | 2019-07-11 14:10 | RAPID ---
Physical Examination Vital Signs: Vital Signs Temperature 97.7 F 07/11/19 08:50 Pulse Rate 65 07/11/19 09:35 Respiratory Rate 16 07/11/19 09:35 Blood Pressure 173/79 H 07/11/19 09:35 O2 Sat by Pulse Oximetry (%) 98 07/11/19 09:00 Labs: CBC, BMP 07/11/19 06:36 07/11/19 12:10 Rapid Response - Rapid Response Assessment: Rapid response called to 4s overhead at 09:27. Rapid Response team responded immediately. Pt reported to be less responsive than usual. Pt AOx3, speaking slowly. Finger stick glucose reading 23. Pt was diaphoretic and demonstrating bp 185/85, hr 66, o2 100% on RA. Pt was not yet given daily dose of metoprolol. Pt was given 1 amp d50 and x3 orange juice. FS 160, BP 170/73. Pt returned to baseline.
[2019-07-11] MEDS: DEXTROSE 10%-WATER - 1,000 ML IV SCH (14:17)
--- NOTE | 2019-07-11 14:32 | CONS ---
DATE OF CONSULTATION: 07/11/2019 REFERRING PHYSICIAN: Britany Weaver MD HISTORY: Patient is a 64-year-old male with past medical history of atrial flutter, atrial fibrillation, status post ablation at [facility], ASHD status post stent 2014, COPD, hypertension, diabetes, remote history of tobacco use, hyperlipidemia, and status post [place]. Admitted to [facility] on July 10 with complaint of shortness of breath, chest tightness. Patient states for the past few days started noticing increasing shortness of breath, dyspnea on exertion. He says he starts to ambulates and develops shortness of breath and chest tightness, which is relieved when stopping. He denies any shortness of breath at rest. Denies any chest cough or palpitations. He has tried using inhaled bronchodilator without any improvement. He denies any orthopnea or PND. He was also noticed to have increasing lower extremity edema. He presented to the emergency room with above. In the ER, he was felt to have possible acute coronary syndrome and mild CHF. He was admitted. He was started on Lasix as well as aspirin. Patient has a history, as stated before, of smoking years ago. There is no history of occupational exposure to chemicals or fumes. PAST MEDICAL HISTORY: Again includes ASHD status post stent, hypertension, hyperlipidemia, COPD on albuterol p.r.n., atrial fibrillation/flutter status post ablations, diabetes, status post [place], , CHF, history of leg ulcer. REVIEW OF SYSTEMS: No orthopnea, no PND. Positive dyspnea on exertion and chest tightness. No dyspnea at rest. No cough, no hemoptysis, no abdominal pain. Positive lower extremity edema. CURRENT MEDICATIONS: Include Flomax, Entresto, Xarelto, Toprol, Lipitor, NovoLog, Lasix, Imdur, aspirin, and Ultram. 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 Remote history of tobacco use. No occupational exposures. PHYSICAL EXAMINATION: General: Patient is a thin male well developed, well nourished, awake, alert in no acute distress. Vital Signs: He is currently afebrile. Blood pressure is 173/79, respiratory rate is 16, O2 saturation is 98% on 2 L nasal cannula. HEENT: Normocephalic, atraumatic. Neck: Supple. Heart: Regular S1, S2. Chest: A few bibasilar crackles. Abdomen: Soft. Bowel sounds are positive. Extremities: Trace lower extremity edema. LABORATORIES: WBC is 8.6, hemoglobin 10.4, hematocrit 31.9 with a platelet count of 283,000, INR is 1.19. BUN 27, creatinine 1.2. BNP is 7914. Echocardiogram revealed normal left ventricular ejection fraction and [id number] tricuspid regurgitation with right ventricular systolic pressure of 40-50. Chest x-ray: Pulmonary vascular congestion bilaterally. IMPRESSION: Dyspnea, likely multiple factors. 1. Acute on chronic diastolic heart failure. 2. Rule out acute coronary syndrome. 3. Chronic obstructive pulmonary disease. 4. Arteriosclerotic heart disease status post stent. 5. Anemia. 6. Pulmonary hypertension. 7. Atrial fibrillation status post ablation. 8. Diabetes. 9. Hypertension. 10. Hyperlipidemia. PLAN: Continue Lasix. Supplemental oxygen. Eliquis. Aspirin as per Cardiology. Inhaled bronchodilators. Cardiac catheterization as per Cardiology. Follow up chest x-rays. Strict inputs and outputs. KISHAN GOMEZ M.D. [id number]
--- NOTE | 2019-07-11 14:38 | EKG ---
Test Reason : Blood Pressure : / mmHG Vent. Rate : 076 BPM Atrial Rate : 076 BPM P-R Int : 202 ms QRS Dur : 094 ms QT Int : 374 ms P-R-T Axes : 091 050 125 degrees QTc Int : 420 ms NORMAL SINUS RHYTHM NONSPECIFIC T WAVE ABNORMALITY ABNORMAL ECG WHEN COMPARED WITH ECG OF 23-SEP-2018 09:10, NO SIGNIFICANT CHANGE WAS FOUND Confirmed by JOLENE KELLEY MD ([id number]) on 07/11/2019 2:37:50 PM Referred By: Confirmed By:JOLENE KELLEY MD
--- NOTE | 2019-07-11 15:11 | PN ---
Progress Note, Physician Chief Complaint: Telem NSR transient AF rate controlled and 3 beats NSVT. History of Present Illness: 64 M with dashawn COPD, Atrial flutter and fibrillation sp Ablations At [facility], DM and HTN. CAD was diagnosed in 2014 and he is post LAD stent. His last cath in 2017 showed severe small ramus intermedius and non-obstructive disease in RCA and LCx. LAD stent was patent. The patient is on chronic lasix and has occasional CHF exacerbations. For a few days reporting chest tightness with exertion after walking up a hill. symptoms resolve after resting. No orthopnea, PND but noticed more Lext swelling. He has been symptom free since presentation. He came to ER today because symptoms were worrying him. - Current Medication List Current Medications: Active Medications Aspirin (Asa -) 81 mg PO DAILY [facility] Last Admin: 07/11/19 09:33 Dose: 81 mg Atorvastatin Calcium (Lipitor -) 40 mg PO HS [facility] Last Admin: 07/10/19 21:43 Dose: 40 mg Furosemide (Lasix Injection -) 40 mg IVPUSH DAILY [facility] Last Admin: 07/11/19 09:37 Dose: 40 mg Dextrose (D10w -) 1,000 mls @ 42 mls/hr IV ASDIR [facility] Last Admin: 07/11/19 14:17 Dose: 42 mls/hr Insulin Aspart (Novolog Vial Sliding Scale -) 1 vial SQ ACHS [facility]; Protocol Last Admin: 07/11/19 11:16 Dose: Not Given Isosorbide Mononitrate (Imdur -) 30 mg PO DAILY [facility] Last Admin: 07/11/19 09:33 Dose: 30 mg Metoprolol Succinate (Toprol Xl -) 100 mg PO DAILY [facility] Last Admin: 07/11/19 09:33 Dose: 100 mg Rivaroxaban (Xarelto) 20 mg PO DAILY@1800 [facility] Last Admin: 07/10/19 19:51 Dose: Not Given Sacubitril/Valsartan (Entresto 49 Mg-51 Mg Tablet) 1 tab PO BID [facility] Tamsulosin HCl (Flomax -) 0.4 mg PO DAILY@0830 [facility] Last Admin: 07/11/19 08:56 Dose: 0.4 mg Tramadol HCl (Ultram -) 50 mg PO BID PRN PRN Reason: PAIN- - Objective Vital Signs: Vital Signs Temperature 97.7 F 07/11/19 08:50 Pulse Rate 65 07/11/19 09:35 Respiratory Rate 16 07/11/19 09:35 Blood Pressure 173/79 H 07/11/19 09:35 O2 Sat by Pulse Oximetry (%) 98 07/11/19 09:00 Constitutional: Yes: Well Nourished Eyes: Yes: Conjunctiva Clear, EOM Intact HENT: Yes: Atraumatic, Normocephalic Neck: Yes: Supple, Trachea Midline Cardiovascular: Yes: Regular Rate and Rhythm, S1, S2. No: JVD Respiratory: Yes: Regular, CTA Bilaterally Gastrointestinal: Yes: Normal Bowel Sounds Edema: Yes Edema: LLE: 1+, RLE: 1+ Labs: CBC, BMP 07/11/19 06:36 07/11/19 12:10 INR, PTT INR 1.19 (0.83-1.09) H 07/11/19 06:36 Problem List - Problems (1) CAD S/P percutaneous coronary angioplasty Code(s): I25.10 - ATHSCL HEART DISEASE OF [place] CORONARY ARTERY W/O ANG PCTRS; Z98.61 - CORONARY ANGIOPLASTY STATUS (2) CHF (congestive heart failure) Code(s): I50.9 - HEART FAILURE, UNSPECIFIED Qualifiers: Heart failure type: unspecified Heart failure chronicity: unspecified Qualified Code(s): I50.9 - Heart failure, unspecified Assessment/Plan 64 yo M with CAD, DM, and HfPEF. Ho AF sp ablation Adm with new exertional angina. Has chronically elevated TP. Also elevated CPK- MB. Echo showed normal LV function without valvulopathy and mild Pulm HTN 1. CAD: Chronically elevated TP level without any real peaking. Will schedule for nuclear stress test 2. CHF Lasix 40mg qd IV Monitor lytes. 3. Afib Xarelto HR controlled.
[2019-07-11] MEDS ORDERED: PT OWN MED DRAWER 7, Y5N ONE ×3 (15:31→20:45)
[2019-07-11] MEDS ORDERED: GLUCAGON 1 MG KIT IVPUSH ONE (15:38)
[2019-07-11] MEDS ORDERED: DEXTROSE 50%-WATER - 25 GM/50 ML VIAL IVPUSH ONE ×2 (15:39→16:00)
[2019-07-11] MEDS ORDERED: DEXTROSE 50%-WATER 25 GM/50 ML DISP.SYRIN IVPUSH ONE (16:00)
[2019-07-11] MEDS: traMADol HCL 50 MG TABLET PO PRN (17:06)
[2019-07-11] MEDS: RIVAROXABAN 20 MG TABLET PO SCH (17:06)
[2019-07-11] MEDS ORDERED: hydrALAZINE HCL 20 MG/ML VIAL IVPUSH ONE (19:57)
[2019-07-11] MEDS ORDERED: SACUBITRIL/VALSARTAN 49 MG-51 MG TABLET PO SCH (22:00)
[2019-07-11] MEDS ORDERED: traMADol HCL 50 MG TABLET PO PRN (22:00)
[2019-07-11] MEDS: ATORVASTATIN CA 40 MG TABLET (FP) PO SCH (22:21)
[2019-07-11] MEDS: SACUBITRIL/VALSARTAN 49 MG-51 MG TABLET PO SCH (22:22)
[2019-07-12] MEDS: traMADol HCL 50 MG TABLET PO PRN ×2 (00:16→17:47)
[2019-07-12 07:16] LABS: ALBUMIN 2.6 g/dl (3.4-5.0); BLOOD UREA NITROGEN 25.4 mg/dL (7-18); CALCIUM 8.3 mg/dL (8.5-10.1); CREATININE 1.4 mg/dL (0.55-1.3); POTASSIUM 3.7 mmol/L (3.5-5.1); TOT PROT 5.7 g/dl (6.4-8.2)
[2019-07-12] MEDS: INSULIN SLIDING SCALE (NOVOLOG) 1 VIAL SQ SCH ×4 (07:24→21:18)
[2019-07-12] MEDS ORDERED: PT OWN MED DRAWER 7, Y5N ONE ×2 (09:37→20:05)
[2019-07-12] MEDS: ASPIRIN 81 MG CHEWABLE TABLETS PO SCH (09:57)
[2019-07-12] MEDS: SACUBITRIL/VALSARTAN 49 MG-51 MG TABLET PO SCH ×3 (09:58→21:12)
[2019-07-12] MEDS: TAMSULOSIN HCL 0.4 MG CAP PO SCH (09:58)
[2019-07-12] MEDS: FUROSEMIDE 40 MG/4 ML INJECTABLE VIAL IVPUSH SCH (09:58)
[2019-07-12] MEDS: ISOSORBIDE MONONITRATE 30 MG TAB.SR.24H (FP) PO SCH (09:58)
--- NOTE | 2019-07-12 09:59 | PN ---
Progress Note, Physician History of Present Illness: pulmonary alert,-cp,less dyspneic - Current Medication List Current Medications: Active Medications Aspirin (Asa -) 81 mg PO DAILY [facility] Last Admin: 07/11/19 09:33 Dose: 81 mg Atorvastatin Calcium (Lipitor -) 40 mg PO HS [facility] Last Admin: 07/11/19 22:21 Dose: 40 mg Furosemide (Lasix Injection -) 40 mg IVPUSH DAILY [facility] Last Admin: 07/11/19 09:37 Dose: 40 mg Dextrose (D10w -) 1,000 mls @ 42 mls/hr IV ASDIR [facility] Last Admin: 07/11/19 14:17 Dose: 42 mls/hr Insulin Aspart (Novolog Vial Sliding Scale -) 1 vial SQ ACHS [facility]; Protocol Last Admin: 07/12/19 07:24 Dose: Not Given Isosorbide Mononitrate (Imdur -) 30 mg PO DAILY [facility] Last Admin: 07/11/19 09:33 Dose: 30 mg Metoprolol Succinate (Toprol Xl -) 100 mg PO DAILY [facility] Last Admin: 07/11/19 09:33 Dose: 100 mg Rivaroxaban (Xarelto) 20 mg PO DAILY@1800 [facility] Last Admin: 07/11/19 17:06 Dose: 20 mg Sacubitril/Valsartan (Entresto 49 Mg-51 Mg Tablet) 1 tab PO BID [facility] Last Admin: 07/11/19 22:22 Dose: 1 tab Tamsulosin HCl (Flomax -) 0.4 mg PO DAILY@0830 [facility] Last Admin: 07/11/19 08:56 Dose: 0.4 mg Tramadol HCl (Ultram -) 50 mg PO Q12H PRN PRN Reason: PAIN- Last Admin: 07/12/19 00:16 Dose: 50 mg - Objective Vital Signs: Vital Signs Temperature 97.5 F L 07/12/19 06:59 Pulse Rate 71 07/12/19 06:59 Respiratory Rate 20 07/12/19 06:59 Blood Pressure 175/96 H 07/12/19 06:59 O2 Sat by Pulse Oximetry (%) 96 07/11/19 20:35 Constitutional: Yes: Well Nourished, Calm Eyes: Yes: WNL HENT: Yes: WNL Neck: Yes: WNL Cardiovascular: Yes: Pulse Irregular, S1, S2 Respiratory: Yes: Rales (few bibasilar crackles) Gastrointestinal: Yes: Normal Bowel Sounds, Soft Extremities: Yes: WNL Edema: No Labs: 07/12/19 06:36 INR, PTT Problem List - Problems (1) Pulmonary HTN Code(s): I27.20 - PULMONARY HYPERTENSION, UNSPECIFIED (2) CHF (congestive heart failure) Code(s): I50.9 - HEART FAILURE, UNSPECIFIED Qualifiers: Heart failure type: unspecified Heart failure chronicity: unspecified Qualified Code(s): I50.9 - Heart failure, unspecified (3) Dyspnea Code(s): R06.00 - DYSPNEA, UNSPECIFIED Qualifiers: Dyspnea type: orthopnea Qualified Code(s): R06.01 - Orthopnea (4) Acute exacerbation of chronic obstructive pulmonary disease (COPD) Code(s): J44.1 - CHRONIC OBSTRUCTIVE PULMONARY DISEASE W (ACUTE) EXACERBATION (5) Anemia Code(s): D64.9 - ANEMIA, UNSPECIFIED (6) Atrial fibrillation Code(s): I48.91 - UNSPECIFIED ATRIAL FIBRILLATION (7) COPD (chronic obstructive pulmonary disease) Code(s): J44.9 - CHRONIC OBSTRUCTIVE PULMONARY DISEASE, UNSPECIFIED (8) H/O heart artery stent Code(s): Z95.5 - PRESENCE OF CORONARY ANGIOPLASTY IMPLANT AND GRAFT (9) PAF (paroxysmal atrial fibrillation) Code(s): I48.0 - PAROXYSMAL ATRIAL FIBRILLATION (10) ASHD (arteriosclerotic heart disease) Code(s): I25.10 - ATHSCL HEART DISEASE OF [place] CORONARY ARTERY W/O ANG PCTRS Assessment/Plan IMP DYSPNEA R/O ACS DIASTOLIC CHF COPD ASHD S/P STENT ANEMIA PULMONARY HTN AFIB S/P ABLATION DM HTN HLD PLAN LASIX O2 NEEDED ELIQUIS INHALED BRONCHODILATORS NUCLEAR STRESS ON SUNDAY F/U CHEST X-RAYS STRICT I+OS DR GOMEZ Problem List - Problems (1) Pulmonary HTN Code(s): I27.20 - PULMONARY HYPERTENSION, UNSPECIFIED (2) CHF (congestive heart failure) Code(s): I50.9 - HEART FAILURE, UNSPECIFIED Qualifiers: Heart failure type: unspecified Heart failure chronicity: unspecified Qualified Code(s): I50.9 - Heart failure, unspecified (3) Dyspnea Code(s): R06.00 - DYSPNEA, UNSPECIFIED Qualifiers: Dyspnea type: orthopnea Qualified Code(s): R06.01 - Orthopnea (4) Acute exacerbation of chronic obstructive pulmonary disease (COPD) Code(s): J44.1 - CHRONIC OBSTRUCTIVE PULMONARY DISEASE W (ACUTE) EXACERBATION (5) Anemia Code(s): D64.9 - ANEMIA, UNSPECIFIED (6) Atrial fibrillation Code(s): I48.91 - UNSPECIFIED ATRIAL FIBRILLATION (7) COPD (chronic obstructive pulmonary disease) Code(s): J44.9 - CHRONIC OBSTRUCTIVE PULMONARY DISEASE, UNSPECIFIED (8) H/O heart artery stent Code(s): Z95.5 - PRESENCE OF CORONARY ANGIOPLASTY IMPLANT AND GRAFT (9) PAF (paroxysmal atrial fibrillation) Code(s): I48.0 - PAROXYSMAL ATRIAL FIBRILLATION (10) ASHD (arteriosclerotic heart disease) Code(s): I25.10 - ATHSCL HEART DISEASE OF [place] CORONARY ARTERY W/O ANG PCTRS
[2019-07-12] MEDS: RIVAROXABAN 20 MG TABLET PO SCH (17:10)
--- NOTE | 2019-07-12 19:36 | CONSULT ---
Consult Consult Specialty:: endocrine Referred by:: briana arredondo MD Reason for Consultation:: diabetes type 2 - History of Present Illness Chief Complaint: low sugars History of Present Illness: 64 yo M, with PMH of DM2,Emily-Js syndrome, HTN, HLD, (with chronic venous insufficiency in b/l LE and MRSA in the past), COPD (on albuterol), dCHF (last EF 55%), CAD (s/p stent), AFib (post ablation on xarelto), who is presenting with complaints of LE edema, chest discomfort, and worsening SOB from baseline. PT states he took his albuterol with minimal relief. PT states the SOB is worse at night,he is an avid swimmer and has been increasing dyspneic upon swimming. his blood sugars have been better at home since this episode he feels difficulty controlling highs and lows,he does not feel low sugars easily. - Past Medical History Cardio/Vascular: Yes: AFIB, CAD, CHF, HTN, Hyperlipdemia, [place] Pulmonary: Yes: COPD, Other (pleural effusion). No: O2 Dependent Infectious Disease: Yes: MRSA. 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, [employer] History of Recent Travel: No Home Medications - Allergies Allergies/Adverse Reactions: Allergies Allergy/AdvReac Type Severity Reaction Status Date / Time No Known Allergies Allergy Verified 11/22/18 08:56 - Home Medications Home Medications: Ambulatory Orders Simvastatin [Zocor -] 20 mg PO DAILY #0 tab 07/11/17 Metoprolol Succinate [Toprol XL -] 100 mg PO DAILY 10/26/17 Rivaroxaban [Xarelto -] 20 mg PO DAILY 10/26/17 Tamsulosin HCl [Flomax -] 0.4 mg PO DAILY 10/26/17 Furosemide [Lasix] 40 mg PO DAILY #30 tab 08/30/18 Acetaminophen [Tylenol .Regular Strength -] 650 mg PO Q6H PRN tablet 10/02/18 Aspirin Coated [Ecotrin -] 81 mg PO DAILY tablet.ec 10/02/18 Glimepiride [Amaryl -] 4 mg PO DAILY@0700 tablet 10/02/18 Isosorbide Mononitrate [Imdur -] 30 mg PO DAILY #30 tab.sr.24h 10/02/18 Sacubitril/Valsartan [Entresto 49 mg-51 mg Tablet] 1 tab PO BID tablet Insulin (Novolog 70/30) [Novolog Mix 70/30 Vial] 0 ml SQ ASDIR 07/10/19 Insulin Glargine,Hum.rec.anlog [Lantus Solostar PEN (NF)] 0 units SQ ASDIR 07/10 Insulin Lispro Protamin/Lispro [Humalog Mix 75-25 Kwikpen] 0 unit SQ ASDIR 07/10 Nystatin/Triamcin [Nystatin-Triamcinolone Cream] 15 gm TP ASDIR 07/10/19 Oxybutynin Chloride [Oxybutynin Chloride ER] 10 mg PO DAILY 07/10/19 Tramadol HCl 50 mg PO BID 07/10/19 Review of Systems - Review of Systems Constitutional: reports: Weakness Eyes: reports: Blurred Vision HENT: reports: No Symptoms Neck: reports: No Symptoms Cardiovascular: reports: Shortness of Breath Respiratory: reports: Cough, Exercise Intolerance, SOB on Exertion Gastrointestinal: reports: No Symptoms Genitourinary: reports: No Symptoms Breasts: reports: No Symptoms Reported Musculoskeletal: reports: Muscle Cramps, Muscle Weakness Endocrine: reports: Unexplained Weight Loss Physical Exam Vital Signs: Vital Signs Temperature 98.2 F 07/12/19 18:00 Pulse Rate 70 07/12/19 18:00 Respiratory Rate 18 07/12/19 18:00 Blood Pressure 164/99 07/12/19 18:00 O2 Sat by Pulse Oximetry (%) 96 07/12/19 09:00 Constitutional: Yes: Anxious Eyes: Yes: EOM Intact HENT: Yes: Normocephalic Neck: Yes: Trachea Midline Cardiovascular: Yes: Tachycardia Respiratory: Yes: Rales, SOB, Tachypnea Gastrointestinal: Yes: Normal Bowel Sounds ...Rectal Exam: Yes: Deferred Renal/: Yes: WNL Breast(s): Yes: WNL Musculoskeletal: Yes: Joint Stiffness Extremities: Yes: Delayed Capillary Refill Edema: LLE: 1+, RLE: 1+ Neurological: Yes: Alert, Oriented Labs: CBC, BMP 07/11/19 06:36 07/12/19 06:36 Problem List - Problems (1) ASHD (arteriosclerotic heart disease) Code(s): I25.10 - ATHSCL HEART DISEASE OF [place] CORONARY ARTERY W/O ANG PCTRS (2) CAD S/P percutaneous coronary angioplasty Code(s): I25.10 - ATHSCL HEART DISEASE OF [place] CORONARY ARTERY W/O ANG PCTRS; Z98.61 - CORONARY ANGIOPLASTY STATUS (3) CHF (congestive heart failure) Code(s): I50.9 - HEART FAILURE, UNSPECIFIED Qualifiers: Heart failure type: unspecified Heart failure chronicity: unspecified Qualified Code(s): I50.9 - Heart failure, unspecified (4) Dyspnea Code(s): R06.00 - DYSPNEA, UNSPECIFIED Qualifiers: Dyspnea type: orthopnea Qualified Code(s): R06.01 - Orthopnea (5) HLD (hyperlipidemia) Code(s): E78.5 - HYPERLIPIDEMIA, UNSPECIFIED (6) Pulmonary HTN Code(s): I27.20 - PULMONARY HYPERTENSION, UNSPECIFIED (7) Acute exacerbation of chronic obstructive pulmonary disease (COPD) Code(s): J44.1 - CHRONIC OBSTRUCTIVE PULMONARY DISEASE W (ACUTE) EXACERBATION (8) Acute on chronic systolic heart failure Code(s): I50.23 - ACUTE ON CHRONIC SYSTOLIC (CONGESTIVE) HEART FAILURE Assessment/Plan Current Active Problems dm nephropathy,ckd diabetic neuropathy ASHD (arteriosclerotic heart disease) (Acute) CAD S/P percutaneous coronary angioplasty (Acute) CHF (congestive heart failure) (Acute) Dyspnea (Acute) HLD (hyperlipidemia) (Acute) Pulmonary HTN (Acute) Abnormal Lab Results 07/12/19 06:36 Anion Gap 7 L BUN 25.4 H Creatinine 1.4 H Random Glucose 279 H Calcium 8.3 L Total Bilirubin 3.0 H Total Protein 5.7 L Albumin 2.6 L Laboratory Results - last 24 hr 07/11/19 07/11/19 07/11/19 19:44 21:02 22:20 Sodium Potassium Chloride Carbon Dioxide Anion Gap BUN Creatinine Est GFR (CKD-EPI)AfAm Est GFR (CKD-EPI)NonAf POC Glucometer 124 99 203 Random Glucose Calcium Total Bilirubin AST ALT Alkaline Phosphatase Total Protein Albumin 07/12/19 07/12/19 07/12/19 00:07 02:24 04:28 Sodium Potassium Chloride Carbon Dioxide Anion Gap BUN Creatinine Est GFR (CKD-EPI)AfAm Est GFR (CKD-EPI)NonAf POC Glucometer 253 251 269 Random Glucose Calcium Total Bilirubin AST ALT Alkaline Phosphatase Total Protein Albumin 07/12/19 07/12/19 07/12/19 06:36 06:43 11:53 Sodium 140 Potassium 3.7 Chloride 104 Carbon Dioxide 29 Anion Gap 7 L BUN 25.4 H Creatinine 1.4 H Est GFR (CKD-EPI)AfAm 60.68 Est GFR (CKD-EPI)NonAf 52.35 POC Glucometer 276 276 Random Glucose 279 H Calcium 8.3 L Total Bilirubin 3.0 H AST 19 ALT 31 Alkaline Phosphatase 102 Total Protein 5.7 L Albumin 2.6 L 07/12/19 07/12/19 13:22 16:36 Sodium Potassium Chloride Carbon Dioxide Anion Gap BUN Creatinine Est GFR (CKD-EPI)AfAm Est GFR (CKD-EPI)NonAf POC Glucometer 222 149 Random Glucose Calcium Total Bilirubin AST ALT Alkaline Phosphatase Total Protein Albumin plan: bgm qid novolog scale levemir 10 unit am ck hba1c nephrology
[2019-07-12] MEDS: ATORVASTATIN CA 40 MG TABLET (FP) PO SCH (21:12)
[2019-07-12] MEDS ORDERED: hydrALAZINE HCL 10 MG TABLET PO ONE (22:53)
[2019-07-12] MEDS: DEXTROSE 10%-WATER - 1,000 ML IV SCH (23:06)
[2019-07-13] MEDS: INSULIN SLIDING SCALE (NOVOLOG) 1 VIAL SQ SCH ×4 (06:59→21:32)
[2019-07-13] MEDS ORDERED: INSULIN (LEVEMIR) 100 UNITS/ML UNITS SQ SCH (07:00)
[2019-07-13] MEDS ORDERED: PT OWN MED DRAWER 7, Y5N ONE ×2 (08:58→21:28)
[2019-07-13] MEDS: TAMSULOSIN HCL 0.4 MG CAP PO SCH (09:16)
[2019-07-13] MEDS: ASPIRIN 81 MG CHEWABLE TABLETS PO SCH (09:16)
[2019-07-13] MEDS: SACUBITRIL/VALSARTAN 49 MG-51 MG TABLET PO SCH ×2 (09:16→21:30)
[2019-07-13] MEDS: FUROSEMIDE 40 MG/4 ML INJECTABLE VIAL IVPUSH SCH (09:17)
[2019-07-13] MEDS: ISOSORBIDE MONONITRATE 30 MG TAB.SR.24H (FP) PO SCH (09:17)
[2019-07-13] MEDS: traMADol HCL 50 MG TABLET PO PRN ×2 (09:19→21:33)
--- NOTE | 2019-07-13 09:53 | PN ---
Progress Note, Physician History of Present Illness: pulmonary alert,feeling better,less dyspneic - Current Medication List Current Medications: Active Medications Aspirin (Asa -) 81 mg PO DAILY [facility] Last Admin: 07/13/19 09:16 Dose: 81 mg Atorvastatin Calcium (Lipitor -) 40 mg PO HS [facility] Last Admin: 07/12/19 21:12 Dose: 40 mg Furosemide (Lasix Injection -) 40 mg IVPUSH DAILY [facility] Last Admin: 07/13/19 09:17 Dose: 40 mg Insulin Aspart (Novolog Vial Sliding Scale -) 1 vial SQ ACHS [facility]; Protocol Last Admin: 07/13/19 06:59 Dose: 2 units Insulin Detemir (Levemir Vial) 10 units SQ AM [facility] Last Admin: 07/13/19 06:59 Dose: 10 units Isosorbide Mononitrate (Imdur -) 30 mg PO DAILY [facility] Last Admin: 07/13/19 09:17 Dose: 30 mg Metoprolol Succinate (Toprol Xl -) 100 mg PO DAILY [facility] Last Admin: 07/13/19 09:17 Dose: 100 mg Rivaroxaban (Xarelto) 20 mg PO DAILY@1800 [facility] Last Admin: 07/12/19 17:10 Dose: 20 mg Sacubitril/Valsartan (Entresto 49 Mg-51 Mg Tablet) 1 tab PO BID [facility] Last Admin: 07/13/19 09:16 Dose: 1 tab Tamsulosin HCl (Flomax -) 0.4 mg PO DAILY@0830 [facility] Last Admin: 07/13/19 09:16 Dose: 0.4 mg Tramadol HCl (Ultram -) 50 mg PO Q12H PRN PRN Reason: PAIN- Last Admin: 07/13/19 09:19 Dose: 50 mg - Objective Vital Signs: Vital Signs Temperature 98.4 F 07/13/19 06:00 Pulse Rate 68 07/13/19 06:00 Respiratory Rate 20 07/13/19 06:00 Blood Pressure 164/89 07/13/19 06:00 O2 Sat by Pulse Oximetry (%) 97 07/12/19 20:27 Constitutional: Yes: Well Nourished, Calm Eyes: Yes: WNL HENT: Yes: WNL Neck: Yes: WNL Cardiovascular: Yes: Pulse Irregular, S1, S2 Respiratory: Yes: Rales (few bibasilar crackles) Gastrointestinal: Yes: Normal Bowel Sounds, Soft Extremities: Yes: WNL Edema: No Labs: CBC, BMP 07/11/19 06:36 Problem List - Problems (1) Pulmonary HTN Code(s): I27.20 - PULMONARY HYPERTENSION, UNSPECIFIED (2) CHF (congestive heart failure) Code(s): I50.9 - HEART FAILURE, UNSPECIFIED Qualifiers: Heart failure type: unspecified Heart failure chronicity: unspecified Qualified Code(s): I50.9 - Heart failure, unspecified (3) Dyspnea Code(s): R06.00 - DYSPNEA, UNSPECIFIED Qualifiers: Dyspnea type: orthopnea Qualified Code(s): R06.01 - Orthopnea (4) Acute exacerbation of chronic obstructive pulmonary disease (COPD) Code(s): J44.1 - CHRONIC OBSTRUCTIVE PULMONARY DISEASE W (ACUTE) EXACERBATION (5) Anemia Code(s): D64.9 - ANEMIA, UNSPECIFIED (6) Atrial fibrillation Code(s): I48.91 - UNSPECIFIED ATRIAL FIBRILLATION (7) COPD (chronic obstructive pulmonary disease) Code(s): J44.9 - CHRONIC OBSTRUCTIVE PULMONARY DISEASE, UNSPECIFIED (8) H/O heart artery stent Code(s): Z95.5 - PRESENCE OF CORONARY ANGIOPLASTY IMPLANT AND GRAFT (9) PAF (paroxysmal atrial fibrillation) Code(s): I48.0 - PAROXYSMAL ATRIAL FIBRILLATION (10) ASHD (arteriosclerotic heart disease) Code(s): I25.10 - ATHSCL HEART DISEASE OF [place] CORONARY ARTERY W/O ANG PCTRS Assessment/Plan IMP DYSPNEA R/O ACS DIASTOLIC CHF COPD ASHD S/P STENT ANEMIA PULMONARY HTN AFIB S/P ABLATION DM HTN HLD PLAN LASIX O2 NEEDED ELIQUIS INHALED BRONCHODILATORS NUCLEAR STRESS ON SUNDAY F/U CHEST X-RAYS STRICT I+OS DR GOMEZ Problem List - Problems (1) Pulmonary HTN Code(s): I27.20 - PULMONARY HYPERTENSION, UNSPECIFIED (2) CHF (congestive heart failure) Code(s): I50.9 - HEART FAILURE, UNSPECIFIED Qualifiers: Heart failure type: unspecified Heart failure chronicity: unspecified Qualified Code(s): I50.9 - Heart failure, unspecified (3) Dyspnea Code(s): R06.00 - DYSPNEA, UNSPECIFIED Qualifiers: Dyspnea type: orthopnea Qualified Code(s): R06.01 - Orthopnea (4) Acute exacerbation of chronic obstructive pulmonary disease (COPD) Code(s): J44.1 - CHRONIC OBSTRUCTIVE PULMONARY DISEASE W (ACUTE) EXACERBATION (5) Anemia Code(s): D64.9 - ANEMIA, UNSPECIFIED (6) Atrial fibrillation Code(s): I48.91 - UNSPECIFIED ATRIAL FIBRILLATION (7) COPD (chronic obstructive pulmonary disease) Code(s): J44.9 - CHRONIC OBSTRUCTIVE PULMONARY DISEASE, UNSPECIFIED (8) H/O heart artery stent Code(s): Z95.5 - PRESENCE OF CORONARY ANGIOPLASTY IMPLANT AND GRAFT (9) PAF (paroxysmal atrial fibrillation) Code(s): I48.0 - PAROXYSMAL ATRIAL FIBRILLATION (10) ASHD (arteriosclerotic heart disease) Code(s): I25.10 - ATHSCL HEART DISEASE OF [place] CORONARY ARTERY W/O ANG PCTRS
--- NOTE | 2019-07-13 10:34 | PN ---
Progress Note, Physician Chief Complaint: ASLEEP COMFORTABLE NO ACUTE EVENTS GIVEN HYDRALAZINE LASY NIGHT FOR ELEVATED BP - Current Medication List Current Medications: Active Medications Aspirin (Asa -) 81 mg PO DAILY [facility] Last Admin: 07/13/19 09:16 Dose: 81 mg Atorvastatin Calcium (Lipitor -) 40 mg PO HS [facility] Last Admin: 07/12/19 21:12 Dose: 40 mg Furosemide (Lasix Injection -) 40 mg IVPUSH DAILY [facility] Last Admin: 07/13/19 09:17 Dose: 40 mg Insulin Aspart (Novolog Vial Sliding Scale -) 1 vial SQ ACHS [facility]; Protocol Last Admin: 07/13/19 06:59 Dose: 2 units Insulin Detemir (Levemir Vial) 10 units SQ AM [facility] Last Admin: 07/13/19 06:59 Dose: 10 units Isosorbide Mononitrate (Imdur -) 30 mg PO DAILY [facility] Last Admin: 07/13/19 09:17 Dose: 30 mg Metoprolol Succinate (Toprol Xl -) 100 mg PO DAILY [facility] Last Admin: 07/13/19 09:17 Dose: 100 mg Rivaroxaban (Xarelto) 20 mg PO DAILY@1800 [facility] Last Admin: 07/12/19 17:10 Dose: 20 mg Sacubitril/Valsartan (Entresto 49 Mg-51 Mg Tablet) 1 tab PO BID [facility] Last Admin: 07/13/19 09:16 Dose: 1 tab Tamsulosin HCl (Flomax -) 0.4 mg PO DAILY@0830 [facility] Last Admin: 07/13/19 09:16 Dose: 0.4 mg Tramadol HCl (Ultram -) 50 mg PO Q12H PRN PRN Reason: PAIN- Last Admin: 07/13/19 09:19 Dose: 50 mg - Objective Vital Signs: Vital Signs Temperature 98 F 07/13/19 10:00 Pulse Rate 72 07/13/19 10:00 Respiratory Rate 20 07/13/19 10:00 Blood Pressure 175/94 H 07/13/19 10:00 O2 Sat by Pulse Oximetry (%) 97 07/12/19 20:27 Constitutional: Yes: No Distress Cardiovascular: Yes: Regular Rate and Rhythm Respiratory: Yes: Diminished Genitourinary: Yes: WNL Musculoskeletal: Yes: WNL Extremities: Yes: WNL Edema: Yes Integumentary: Yes: WNL Wound/Incision: Yes: Clean/Dry Neurological: Yes: Numbness ...Motor Strength: LLE, RLE Psychiatric: Yes: WNL Labs: CBC, BMP 07/11/19 06:36 07/12/19 06:36 INR, PTT INR 1.19 (0.83-1.09) H 07/11/19 06:36 Assessment/Plan STRESS TEST SUNDAY CARDIOLOGY F/U DM CONTROLL DIETARY CONSULT ENDOCRINE F/U DR TERA KERN TO CHAIR [facility] AC/HS ADD HYDRALAZINE 10MG BID
--- NOTE | 2019-07-13 13:29 | PN ---
Progress Note, Physician Chief Complaint: AWAKE ALERT DENIES CP SCHEDULED FOR STRESS TEST SUNDAY - Current Medication List Current Medications: Active Medications Aspirin (Asa -) 81 mg PO DAILY [facility] Last Admin: 07/13/19 09:16 Dose: 81 mg Atorvastatin Calcium (Lipitor -) 40 mg PO HS [facility] Last Admin: 07/12/19 21:12 Dose: 40 mg Furosemide (Lasix Injection -) 40 mg IVPUSH DAILY [facility] Last Admin: 07/13/19 09:17 Dose: 40 mg Hydralazine HCl (Apresoline -) 10 mg PO BID [facility] Insulin Aspart (Novolog Vial Sliding Scale -) 1 vial SQ ACHS [facility]; Protocol Last Admin: 07/13/19 11:47 Dose: 4 units Insulin Detemir (Levemir Vial) 10 units SQ AM [facility] Last Admin: 07/13/19 06:59 Dose: 10 units Isosorbide Mononitrate (Imdur -) 30 mg PO DAILY [facility] Last Admin: 07/13/19 09:17 Dose: 30 mg Metoprolol Succinate (Toprol Xl -) 100 mg PO DAILY [facility] Last Admin: 07/13/19 09:17 Dose: 100 mg Rivaroxaban (Xarelto) 20 mg PO DAILY@1800 [facility] Last Admin: 07/12/19 17:10 Dose: 20 mg Sacubitril/Valsartan (Entresto 49 Mg-51 Mg Tablet) 1 tab PO BID [facility] Last Admin: 07/13/19 09:16 Dose: 1 tab Tamsulosin HCl (Flomax -) 0.4 mg PO DAILY@0830 [facility] Last Admin: 07/13/19 09:16 Dose: 0.4 mg Tramadol HCl (Ultram -) 50 mg PO Q12H PRN PRN Reason: PAIN- Last Admin: 07/13/19 09:19 Dose: 50 mg - Objective Vital Signs: Vital Signs Temperature 98 F 07/13/19 10:00 Pulse Rate 72 07/13/19 10:00 Respiratory Rate 20 07/13/19 10:00 Blood Pressure 175/94 H 07/13/19 10:00 O2 Sat by Pulse Oximetry (%) 97 07/12/19 20:27 Constitutional: Yes: Mild Distress Cardiovascular: Yes: Regular Rate and Rhythm Respiratory: Yes: Diminished Genitourinary: Yes: WNL Edema: Yes Integumentary: Yes: WNL Wound/Incision: Yes: Clean/Dry Neurological: Yes: WNL ...Motor Strength: WNL Psychiatric: Yes: WNL Labs: CBC, BMP 07/11/19 06:36 07/12/19 06:36 INR, PTT INR 1.19 (0.83-1.09) H 07/11/19 06:36 Problem List - Problems (1) ASHD (arteriosclerotic heart disease) Code(s): I25.10 - ATHSCL HEART DISEASE OF [place] CORONARY ARTERY W/O ANG PCTRS (2) CAD S/P percutaneous coronary angioplasty Code(s): I25.10 - ATHSCL HEART DISEASE OF [place] CORONARY ARTERY W/O ANG PCTRS; Z98.61 - CORONARY ANGIOPLASTY STATUS (3) Dyspnea Code(s): R06.00 - DYSPNEA, UNSPECIFIED Qualifiers: Dyspnea type: orthopnea Qualified Code(s): R06.01 - Orthopnea (4) HLD (hyperlipidemia) Code(s): E78.5 - HYPERLIPIDEMIA, UNSPECIFIED (5) Pulmonary HTN Code(s): I27.20 - PULMONARY HYPERTENSION, UNSPECIFIED (6) Acute exacerbation of chronic obstructive pulmonary disease (COPD) Code(s): J44.1 - CHRONIC OBSTRUCTIVE PULMONARY DISEASE W (ACUTE) EXACERBATION (7) Acute on chronic systolic heart failure Code(s): I50.23 - ACUTE ON CHRONIC SYSTOLIC (CONGESTIVE) HEART FAILURE (8) Diabetes mellitus Code(s): E11.9 - TYPE 2 DIABETES MELLITUS WITHOUT COMPLICATIONS Qualifiers: Diabetes mellitus type: type 2 (9) Type 2 diabetes mellitus with diabetic polyneuropathy Code(s): E11.42 - TYPE 2 DIABETES MELLITUS WITH DIABETIC POLYNEUROPATHY Assessment/Plan STRESS TEST SUNDAY CARDIOLOGY F/U DM CONTROLL DIETARY CONSULT ENDOCRINE F/U DR TERA KERN TO CHAIR [facility] AC/HS
--- NOTE | 2019-07-13 14:40 | CONSULT ---
Consult Consult Specialty:: Nephrology Reason for Consultation:: CKD - History of Present Illness Chief Complaint: shortness of breath History of Present Illness: Pt is a 64 year old male with pmhx of htn, chf, hld, dm, copd, cad, and a-fib who presents to the ER with increased shortness of breath and lower ext edema. He also complains of exercise intolerance. He denies chest pain. he does feel his legs are swollen. He was found to have elevated polygraph technician and I was called to evaluate him. He was also found to have proteinuria. he denies dysuria or hematuria. he says he is compliant with low sodium diet. He denies nsaid use. - History Source History Provided By: Patient, Medical Record - Past Medical History Cardio/Vascular: Yes: AFIB, CAD, CHF, HTN, Hyperlipdemia, IN Pulmonary: Yes: COPD, Other (pleural effusion) Infectious Disease: Yes: MRSA. 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 History of Recent Travel: No Home Medications - Allergies Allergies/Adverse Reactions: Allergies Allergy/AdvReac Type Severity Reaction Status Date / Time No Known Allergies Allergy Verified 11/22/18 08:56 - Home Medications Home Medications: Ambulatory Orders Simvastatin [Zocor -] 20 mg PO DAILY #0 tab 07/11/17 Metoprolol Succinate [Toprol XL -] 100 mg PO DAILY 10/26/17 Rivaroxaban [Xarelto -] 20 mg PO DAILY 10/26/17 Tamsulosin HCl [Flomax -] 0.4 mg PO DAILY 10/26/17 Furosemide [Lasix] 40 mg PO DAILY #30 tab 08/30/18 Acetaminophen [Tylenol .Regular Strength -] 650 mg PO Q6H PRN tablet 10/02/18 Aspirin Coated [Ecotrin -] 81 mg PO DAILY tablet.ec 10/02/18 Glimepiride [Amaryl -] 4 mg PO DAILY@0700 tablet 10/02/18 Isosorbide Mononitrate [Imdur -] 30 mg PO DAILY #30 tab.sr.24h 10/02/18 Sacubitril/Valsartan [Entresto 49 mg-51 mg Tablet] 1 tab PO BID tablet Insulin (Novolog 70/30) [Novolog Mix 70/30 Vial] 0 ml SQ ASDIR 07/10/19 Insulin Glargine,Hum.rec.anlog [Lantus Solostar PEN (NF)] 0 units SQ [facility] 07/10 Insulin Lispro Protamin/Lispro [Humalog Mix 75-25 Kwikpen] 0 unit SQ [facility]IR 07/10 Nystatin/Triamcin [Nystatin-Triamcinolone Cream] 15 gm TP ASDIR 07/10/19 Oxybutynin Chloride [Oxybutynin Chloride ER] 10 mg PO DAILY 07/10/19 Tramadol HCl 50 mg PO BID 07/10/19 Family Medical History Family History: Denies Review of Systems - Review of Systems Constitutional: reports: No Symptoms Eyes: reports: No Symptoms HENT: reports: No Symptoms Neck: reports: No Symptoms Cardiovascular: reports: Edema, Shortness of Breath Respiratory: reports: SOB on Exertion Gastrointestinal: reports: No Symptoms Genitourinary: reports: No Symptoms Musculoskeletal: reports: No Symptoms Integumentary: reports: No Symptoms Neurological: reports: No Symptoms Endocrine: reports: No Symptoms Hematology/Lymphatic: reports: No Symptoms Psychiatric: reports: No Symptoms Physical Exam Vital Signs: Vital Signs Temperature 98.9 F 07/13/19 13:10 Pulse Rate 67 07/13/19 13:10 Respiratory Rate 18 07/13/19 13:10 Blood Pressure 149/86 07/13/19 13:10 O2 Sat by Pulse Oximetry (%) 97 07/13/19 09:00 Constitutional: Yes: Calm Eyes: Yes: Conjunctiva Clear HENT: Yes: Atraumatic Neck: Yes: Supple Cardiovascular: Yes: S1, S2 Respiratory: Yes: CTA Bilaterally Gastrointestinal: Yes: Normal Bowel Sounds, Soft Renal/: Yes: WNL Edema: Yes Edema: LLE: 2+, RLE: 2+ Neurological: Yes: Oriented Psychiatric: Yes: Oriented Labs: CBC, BMP 07/11/19 06:36 07/12/19 06:36 Laboratory Tests 10/02/18 07/10/19 07/10/19 06:00 14:18 14:18 Hgb 9.4 L Creatinine 1.2 1.3 Urine Protein Urine Blood 07/10/19 07/11/19 07/11/19 16:46 06:36 06:36 Hgb 10.4 L Creatinine 1.3 Urine Protein 4+ H Urine Blood 1+ H 07/11/19 07/12/19 12:10 06:36 Hgb Creatinine 1.2 1.4 H Urine Protein Urine Blood Imaging - Results Chest X-ray: Report Reviewed Problem List - Problems (1) Proteinuria Code(s): R80.9 - PROTEINURIA, UNSPECIFIED (2) CAD S/P percutaneous coronary angioplasty Code(s): I25.10 - ATHSCL HEART DISEASE OF [place] CORONARY ARTERY W/O ANG PCTRS; Z98.61 - CORONARY ANGIOPLASTY STATUS (3) CHF (congestive heart failure) Code(s): I50.9 - HEART FAILURE, UNSPECIFIED Qualifiers: Heart failure type: unspecified Heart failure chronicity: unspecified Qualified Code(s): I50.9 - Heart failure, unspecified (4) HLD (hyperlipidemia) Code(s): E78.5 - HYPERLIPIDEMIA, UNSPECIFIED (5) Pulmonary HTN Code(s): I27.20 - PULMONARY HYPERTENSION, UNSPECIFIED Assessment/Plan Current Medications Generic Name Dose Route Start Last Admin Trade Name Freq PRN Reason Stop Dose Admin Aspirin 81 mg 07/11/19 10:00 07/13/19 09:16 Asa - PO 81 mg DAILY [facility] Administration Atorvastatin Calcium 40 mg 07/10/19 22:00 07/12/19 21:12 Lipitor - PO 40 mg HS [facility] Administration Furosemide 40 mg 07/11/19 10:00 07/13/19 09:17 Lasix Injection - IVPUSH 40 mg DAILY [facility] Administration Hydralazine HCl 10 mg 07/13/19 22:00 Apresoline - PO BID [facility] Insulin Aspart 1 vial 07/12/19 19:39 07/13/19 11:47 Novolog Vial Sliding Scale - SQ 4 units ACHS [facility] Administration Protocol Insulin Detemir 10 units 07/13/19 07:00 07/13/19 06:59 Levemir Vial SQ 10 units AM [facility] Administration Isosorbide Mononitrate 30 mg 07/11/19 10:00 07/13/19 09:17 Imdur - PO 30 mg DAILY [facility] Administration Metoprolol Succinate 100 mg 07/11/19 10:00 07/13/19 09:17 Toprol Xl - PO 100 mg DAILY [facility] Administration Rivaroxaban 20 mg 07/10/19 18:00 07/12/19 17:10 Xarelto PO 20 mg DAILY@1800 [facility] Administration Sacubitril/Valsartan 1 tab 07/11/19 11:17 07/13/19 09:16 Entresto 49 Mg-51 Mg Tablet PO 1 tab BID [facility] Administration Tamsulosin HCl 0.4 mg 07/11/19 08:30 07/13/19 09:16 Flomax - PO 0.4 mg DAILY@0830 [facility] Administration Tramadol HCl 50 mg 07/11/19 17:01 07/13/19 09:19 Ultram - PO 50 mg Q12H PRN Administration PAIN- Impression 1. ckd 2. proteinuria 3. chf 4. fluid overload 5. a-fib 6. htn 7. copd 8. dm Plan - check prt to polygraph technician ration - check renal ultrasound - repeat labs in am - cont lasix - check a1c - will need more extensive renal workup as outpt
--- NOTE | 2019-07-13 15:12 | PN ---
Progress Note, Physician Chief Complaint: Dyspnea History of Present Illness: This is a 64 year old male with a history of COPD, Atrial flutter and fibrillation sp Ablations At [facility], DM and HTN. He has CAD diagnosed in 2014 and he is post LAD stent. His last cath in 2017 showed severe small ramus intermedius and non-obstructive disease in RCA and LCx. LAD stent was patent. He takes chronic Lasix and has occasional CHF exacerbations. He presents now with a few days reporting chest tightness with exertion after walking up a hill. symptoms resolve after resting. Ecchocardiogram 07/11/19: Mild concentric LFH EF 50 - 55% Mild MR Mild to Mod TR RVSP 40 - 50 mmHg - Current Medication List Current Medications: Active Medications Aspirin (Asa -) 81 mg PO DAILY [facility] Last Admin: 07/13/19 09:16 Dose: 81 mg Atorvastatin Calcium (Lipitor -) 40 mg PO HS [facility] Last Admin: 07/12/19 21:12 Dose: 40 mg Furosemide (Lasix Injection -) 40 mg IVPUSH DAILY [facility] Last Admin: 07/13/19 09:17 Dose: 40 mg Hydralazine HCl (Apresoline -) 10 mg PO BID [facility] Insulin Aspart (Novolog Vial Sliding Scale -) 1 vial SQ ACHS [facility]; Protocol Last Admin: 07/13/19 11:47 Dose: 4 units Insulin Detemir (Levemir Vial) 10 units SQ AM [facility] Last Admin: 07/13/19 06:59 Dose: 10 units Isosorbide Mononitrate (Imdur -) 30 mg PO DAILY [facility] Last Admin: 07/13/19 09:17 Dose: 30 mg Metoprolol Succinate (Toprol Xl -) 100 mg PO DAILY [facility] Last Admin: 07/13/19 09:17 Dose: 100 mg Rivaroxaban (Xarelto) 20 mg PO DAILY@1800 [facility] Last Admin: 07/12/19 17:10 Dose: 20 mg Sacubitril/Valsartan (Entresto 49 Mg-51 Mg Tablet) 1 tab PO BID [facility] Last Admin: 07/13/19 09:16 Dose: 1 tab Tamsulosin HCl (Flomax -) 0.4 mg PO DAILY@0830 [facility] Last Admin: 07/13/19 09:16 Dose: 0.4 mg Tramadol HCl (Ultram -) 50 mg PO Q12H PRN PRN Reason: PAIN- Last Admin: 07/13/19 09:19 Dose: 50 mg - Objective Vital Signs: Vital Signs Temperature 98.9 F 07/13/19 13:10 Pulse Rate 67 07/13/19 13:10 Respiratory Rate 18 07/13/19 13:10 Blood Pressure 149/86 07/13/19 13:10 O2 Sat by Pulse Oximetry (%) 97 07/13/19 09:00 Constitutional: Yes: Well Nourished HENT: Yes: WNL Neck: Yes: WNL Cardiovascular: Yes: Regular Rate and Rhythm, S1, S2 Respiratory: Yes: CTA Bilaterally Gastrointestinal: Yes: Normal Bowel Sounds Edema: Yes Edema: LLE: 1+, RLE: 1+ Neurological: Yes: Alert, Oriented Labs: CBC, BMP 07/11/19 06:36 07/12/19 06:36 INR, PTT INR 1.19 (0.83-1.09) H 07/11/19 06:36 Assessment/Plan 64 yo M with CAD, DM, and HfPEF. Ho AF sp ablation Adm with new exertional angina. Has chronically elevated TP. Also elevated CPK- MB. Echo showed normal LV function without valvulopathy and mild Pulm HTN 1. CAD: Chronically elevated TP level without any real peaking. Nuclear stress test is planned 2. CHF Lasix 40mg IVSS daily Follow I's/O's/Wt's/Lytes Continue BB/Hydralazine/Imur Would consider DC'ing Entresto since the recent PARAGON-HF trial did not show clear benefit with using Entresto on HFpEF pateints. 3. PAfib Xarelto HR controlled. Presently in NSR
[2019-07-13] MEDS: RIVAROXABAN 20 MG TABLET PO SCH (17:11)
--- NOTE | 2019-07-13 20:53 | PN ---
Progress Note (short form) - Note Progress Note: blood sugars improving,yet renal function concerning Current Active Problems ASHD (arteriosclerotic heart disease) (Acute) CAD S/P percutaneous coronary angioplasty (Acute) CHF (congestive heart failure) (Acute) Dyspnea (Acute) HLD (hyperlipidemia) (Acute) Proteinuria (Acute) Pulmonary HTN (Acute) dm 2 nephropathy Abnormal Lab Results 07/13/19 15:00 U Random Total Protein 220.3 H Laboratory Tests 07/09/17 05/03/18 05/03/18 19:10 05:53 12:35 POC Glucometer 242 194 Hemoglobin A1c % 10.0 H D 05/03/18 05/03/18 07/12/19 17:22 23:21 21:13 POC Glucometer 209 95 239 Hemoglobin A1c % 07/13/19 07/13/19 07/13/19 06:10 11:45 16:45 POC Glucometer 229 297 96 Hemoglobin A1c % plan: advance levemir 15units am nephrology consulted will need cgms as outpatient Problem List - Problems (1) ASHD (arteriosclerotic heart disease) Code(s): I25.10 - ATHSCL HEART DISEASE OF [place] CORONARY ARTERY W/O ANG PCTRS (2) CAD S/P percutaneous coronary angioplasty Code(s): I25.10 - ATHSCL HEART DISEASE OF [place] CORONARY ARTERY W/O ANG PCTRS; Z98.61 - CORONARY ANGIOPLASTY STATUS (3) CHF (congestive heart failure) Code(s): I50.9 - HEART FAILURE, UNSPECIFIED Qualifiers: Heart failure type: unspecified Heart failure chronicity: unspecified Qualified Code(s): I50.9 - Heart failure, unspecified (4) Dyspnea Code(s): R06.00 - DYSPNEA, UNSPECIFIED Qualifiers: Dyspnea type: orthopnea Qualified Code(s): R06.01 - Orthopnea (5) HLD (hyperlipidemia) Code(s): E78.5 - HYPERLIPIDEMIA, UNSPECIFIED (6) Pulmonary HTN Code(s): I27.20 - PULMONARY HYPERTENSION, UNSPECIFIED (7) Acute exacerbation of chronic obstructive pulmonary disease (COPD) Code(s): J44.1 - CHRONIC OBSTRUCTIVE PULMONARY DISEASE W (ACUTE) EXACERBATION (8) Acute on chronic systolic heart failure Code(s): I50.23 - ACUTE ON CHRONIC SYSTOLIC (CONGESTIVE) HEART FAILURE (9) Type 2 diabetes mellitus with diabetic nephropathy Code(s): E11.21 - TYPE 2 DIABETES MELLITUS WITH DIABETIC NEPHROPATHY Qualifiers: Diabetes mellitus terminal carman insulin use: with terminal carman use Qualified Code( s): E11.21 - Type 2 diabetes mellitus with diabetic nephropathy; Z79.4 - care home (current) use of insulin
[2019-07-13] MEDS: ATORVASTATIN CA 40 MG TABLET (FP) PO SCH (21:29)
[2019-07-13] MEDS: hydrALAZINE HCL 10 MG TABLET PO SCH (21:30)
[2019-07-14] MEDS: hydrALAZINE HCL 10 MG TABLET PO SCH ×4 (05:47→21:34)
[2019-07-14] MEDS: INSULIN (LEVEMIR) 100 UNITS/ML UNITS SQ SCH (06:01)
[2019-07-14] MEDS: INSULIN SLIDING SCALE (NOVOLOG) 1 VIAL SQ SCH ×4 (06:01→21:34)
[2019-07-14 06:17] LABS: BLOOD UREA NITROGEN 31.5 mg/dL (7-18); CALCIUM 8.2 mg/dL (8.5-10.1); CREATININE 1.3 mg/dL (0.55-1.3); POTASSIUM 3.4 mmol/L (3.5-5.1)
[2019-07-14] MEDS ORDERED: POTASSIUM CHLORIDE TABS 20 MEQ TABLET.ER (FP) PO ONE ×2 (07:39→12:15)
[2019-07-14] MEDS ORDERED: REGADENOSON 0.4 MG/5 ML PRE-FILLED SYRINGE IVPUSH ONE ×2 (09:34→09:45)
--- NOTE | 2019-07-14 11:13 | PN ---
Progress Note, Physician History of Present Illness: pulmonary alert,comfortable,-resp distress,-cp - Current Medication List Current Medications: Active Medications Aspirin (Asa -) 81 mg PO DAILY [facility] Last Admin: 07/13/19 09:16 Dose: 81 mg Atorvastatin Calcium (Lipitor -) 40 mg PO HS [facility] Last Admin: 07/13/19 21:29 Dose: 40 mg Furosemide (Lasix Injection -) 40 mg IVPUSH DAILY [facility] Last Admin: 07/13/19 09:17 Dose: 40 mg Hydralazine HCl (Apresoline -) 10 mg PO BID [facility] Last Admin: 07/14/19 05:47 Dose: 10 mg Insulin Aspart (Novolog Vial Sliding Scale -) 1 vial SQ ACHS [facility]; Protocol Last Admin: 07/14/19 06:01 Dose: Not Given Insulin Detemir (Levemir Vial) 15 units SQ AM [facility] Last Admin: 07/14/19 06:01 Dose: Not Given Isosorbide Mononitrate (Imdur -) 30 mg PO DAILY [facility] Last Admin: 07/13/19 09:17 Dose: 30 mg Metoprolol Succinate (Toprol Xl -) 100 mg PO DAILY [facility] Last Admin: 07/13/19 09:17 Dose: 100 mg Rivaroxaban (Xarelto) 20 mg PO DAILY@1800 [facility] Last Admin: 07/13/19 17:11 Dose: 20 mg Sacubitril/Valsartan (Entresto 49 Mg-51 Mg Tablet) 1 tab PO BID [facility] Last Admin: 07/13/19 21:30 Dose: 1 tab Tamsulosin HCl (Flomax -) 0.4 mg PO DAILY@0830 [facility] Last Admin: 07/13/19 09:16 Dose: 0.4 mg Tramadol HCl (Ultram -) 50 mg PO Q12H PRN PRN Reason: PAIN- Last Admin: 07/13/19 21:33 Dose: 50 mg - Objective Vital Signs: Vital Signs Temperature 98.0 F 07/14/19 08:00 Pulse Rate 67 07/14/19 07:57 Respiratory Rate 18 07/14/19 08:00 Blood Pressure 159/83 07/14/19 07:57 O2 Sat by Pulse Oximetry (%) 97 07/14/19 08:00 Constitutional: Yes: Well Nourished, Calm Eyes: Yes: WNL HENT: Yes: WNL Neck: Yes: WNL Cardiovascular: Yes: Pulse Irregular, S1, S2 Respiratory: Yes: CTA Bilaterally Gastrointestinal: Yes: Normal Bowel Sounds, Soft Extremities: Yes: WNL Edema: No Labs: CBC, BMP 07/14/19 05:30 INR, PTT Problem List - Problems (1) Pulmonary HTN Code(s): I27.20 - PULMONARY HYPERTENSION, UNSPECIFIED (2) CHF (congestive heart failure) Code(s): I50.9 - HEART FAILURE, UNSPECIFIED Qualifiers: Heart failure type: unspecified Heart failure chronicity: unspecified Qualified Code(s): I50.9 - Heart failure, unspecified (3) Dyspnea Code(s): R06.00 - DYSPNEA, UNSPECIFIED Qualifiers: Dyspnea type: orthopnea Qualified Code(s): R06.01 - Orthopnea (4) Acute exacerbation of chronic obstructive pulmonary disease (COPD) Code(s): J44.1 - CHRONIC OBSTRUCTIVE PULMONARY DISEASE W (ACUTE) EXACERBATION (5) Anemia Code(s): D64.9 - ANEMIA, UNSPECIFIED (6) Atrial fibrillation Code(s): I48.91 - UNSPECIFIED ATRIAL FIBRILLATION (7) COPD (chronic obstructive pulmonary disease) Code(s): J44.9 - CHRONIC OBSTRUCTIVE PULMONARY DISEASE, UNSPECIFIED (8) H/O heart artery stent Code(s): Z95.5 - PRESENCE OF CORONARY ANGIOPLASTY IMPLANT AND GRAFT (9) PAF (paroxysmal atrial fibrillation) Code(s): I48.0 - PAROXYSMAL ATRIAL FIBRILLATION (10) ASHD (arteriosclerotic heart disease) Code(s): I25.10 - ATHSCL HEART DISEASE OF [place] CORONARY ARTERY W/O ANG PCTRS Assessment/Plan IMP DYSPNEA R/O ACS DIASTOLIC CHF COPD ASHD S/P STENT ANEMIA PULMONARY HTN AFIB S/P ABLATION DM HTN HLD PLAN LASIX O2 NEEDED ELIQUIS INHALED BRONCHODILATORS results on lexiscan pending STRICT I+OS DR GOMEZ Problem List - Problems (1) Pulmonary HTN Code(s): I27.20 - PULMONARY HYPERTENSION, UNSPECIFIED (2) CHF (congestive heart failure) Code(s): I50.9 - HEART FAILURE, UNSPECIFIED Qualifiers: Heart failure type: unspecified Heart failure chronicity: unspecified Qualified Code(s): I50.9 - Heart failure, unspecified (3) Dyspnea Code(s): R06.00 - DYSPNEA, UNSPECIFIED Qualifiers: Dyspnea type: orthopnea Qualified Code(s): R06.01 - Orthopnea (4) Acute exacerbation of chronic obstructive pulmonary disease (COPD) Code(s): J44.1 - CHRONIC OBSTRUCTIVE PULMONARY DISEASE W (ACUTE) EXACERBATION (5) Anemia Code(s): D64.9 - ANEMIA, UNSPECIFIED (6) Atrial fibrillation Code(s): I48.91 - UNSPECIFIED ATRIAL FIBRILLATION (7) COPD (chronic obstructive pulmonary disease) Code(s): J44.9 - CHRONIC OBSTRUCTIVE PULMONARY DISEASE, UNSPECIFIED (8) H/O heart artery stent Code(s): Z95.5 - PRESENCE OF CORONARY ANGIOPLASTY IMPLANT AND GRAFT (9) PAF (paroxysmal atrial fibrillation) Code(s): I48.0 - PAROXYSMAL ATRIAL FIBRILLATION (10) ASHD (arteriosclerotic heart disease) Code(s): I25.10 - ATHSCL HEART DISEASE OF [place] CORONARY ARTERY W/O ANG PCTRS
[2019-07-14] MEDS ORDERED: PT OWN MED DRAWER 7, Y5N ONE (12:00)
[2019-07-14] MEDS: FUROSEMIDE 40 MG/4 ML INJECTABLE VIAL IVPUSH SCH (12:12)
[2019-07-14] MEDS: SACUBITRIL/VALSARTAN 49 MG-51 MG TABLET PO SCH (12:13)
[2019-07-14] MEDS: TAMSULOSIN HCL 0.4 MG CAP PO SCH (12:14)
[2019-07-14] MEDS: ASPIRIN 81 MG CHEWABLE TABLETS PO SCH (12:15)
[2019-07-14] MEDS: ISOSORBIDE MONONITRATE 30 MG TAB.SR.24H (FP) PO SCH (12:15)
--- NOTE | 2019-07-14 12:46 | PN ---
Progress Note, Physician History of Present Illness: Pt seen and examined at bedside. He is awake and alert. He denies shortness of breath. - Current Medication List Current Medications: Active Medications Aspirin (Asa -) 81 mg PO DAILY [facility] Last Admin: 07/14/19 12:15 Dose: 81 mg Atorvastatin Calcium (Lipitor -) 40 mg PO HS [facility] Last Admin: 07/13/19 21:29 Dose: 40 mg Furosemide (Lasix Injection -) 40 mg IVPUSH DAILY [facility] Last Admin: 07/14/19 12:12 Dose: 40 mg Hydralazine HCl (Apresoline -) 10 mg PO BID [facility] Last Admin: 07/14/19 09:00 Dose: Not Given Insulin Aspart (Novolog Vial Sliding Scale -) 1 vial SQ ACHS [facility]; Protocol Last Admin: 07/14/19 12:16 Dose: 4 units Insulin Detemir (Levemir Vial) 15 units SQ AM [facility] Last Admin: 07/14/19 06:01 Dose: Not Given Isosorbide Mononitrate (Imdur -) 30 mg PO DAILY [facility] Last Admin: 07/14/19 12:15 Dose: 30 mg Metoprolol Succinate (Toprol Xl -) 100 mg PO DAILY [facility] Last Admin: 07/14/19 12:15 Dose: 100 mg Rivaroxaban (Xarelto) 20 mg PO DAILY@1800 [facility] Last Admin: 07/13/19 17:11 Dose: 20 mg Sacubitril/Valsartan (Entresto 49 Mg-51 Mg Tablet) 1 tab PO BID [facility] Last Admin: 07/14/19 12:13 Dose: 1 tab Tamsulosin HCl (Flomax -) 0.4 mg PO DAILY@0830 [facility] Last Admin: 07/14/19 12:14 Dose: 0.4 mg Tramadol HCl (Ultram -) 50 mg PO Q12H PRN PRN Reason: PAIN- Last Admin: 07/13/19 21:33 Dose: 50 mg - Objective Vital Signs: Vital Signs Temperature 98.0 F 07/14/19 08:00 Pulse Rate 67 07/14/19 07:57 Respiratory Rate 18 07/14/19 08:00 Blood Pressure 159/83 07/14/19 07:57 O2 Sat by Pulse Oximetry (%) 97 07/14/19 08:00 Constitutional: Yes: Calm Eyes: Yes: Conjunctiva Clear HENT: Yes: Atraumatic Neck: Yes: Supple Cardiovascular: Yes: S1, S2 Respiratory: Yes: CTA Bilaterally Gastrointestinal: Yes: Soft Genitourinary: Yes: WNL Musculoskeletal: Yes: WNL Edema: Yes Edema: LLE: 2+, RLE: 2+ Neurological: Yes: Oriented Psychiatric: Yes: Oriented Labs: CBC, BMP 07/11/19 06:36 07/14/19 05:30 INR, PTT INR 1.19 (0.83-1.09) H 07/11/19 06:36 Problem List - Problems (1) Proteinuria Code(s): R80.9 - PROTEINURIA, UNSPECIFIED (2) CAD S/P percutaneous coronary angioplasty Code(s): I25.10 - ATHSCL HEART DISEASE OF [place] CORONARY ARTERY W/O ANG PCTRS; Z98.61 - CORONARY ANGIOPLASTY STATUS (3) CHF (congestive heart failure) Code(s): I50.9 - HEART FAILURE, UNSPECIFIED Qualifiers: Heart failure type: unspecified Heart failure chronicity: unspecified Qualified Code(s): I50.9 - Heart failure, unspecified (4) HLD (hyperlipidemia) Code(s): E78.5 - HYPERLIPIDEMIA, UNSPECIFIED (5) Pulmonary HTN Code(s): I27.20 - PULMONARY HYPERTENSION, UNSPECIFIED Assessment/Plan Current Medications Generic Name Dose Route Start Last Admin Trade Name Freq PRN Reason Stop Dose Admin Aspirin 81 mg 07/11/19 10:00 07/14/19 12:15 Asa - PO 81 mg DAILY [facility] Administration Atorvastatin Calcium 40 mg 07/10/19 22:00 07/13/19 21:29 Lipitor - PO 40 mg HS [facility] Administration Furosemide 40 mg 07/11/19 10:00 07/14/19 12:12 Lasix Injection - IVPUSH 40 mg DAILY [facility] Administration Hydralazine HCl 10 mg 07/13/19 22:00 07/14/19 09:00 Apresoline - PO Not Given BID [facility] Insulin Aspart 1 vial 07/12/19 19:39 07/14/19 12:16 Novolog Vial Sliding Scale - SQ 4 units ACHS [facility] Administration Protocol Insulin Detemir 15 units 07/13/19 20:46 07/14/19 06:01 Levemir Vial SQ Not Given AM [facility] Isosorbide Mononitrate 30 mg 07/11/19 10:00 07/14/19 12:15 Imdur - PO 30 mg DAILY [facility] Administration Metoprolol Succinate 100 mg 07/11/19 10:00 07/14/19 12:15 Toprol Xl - PO 100 mg DAILY [facility] Administration Rivaroxaban 20 mg 07/10/19 18:00 07/13/19 17:11 Xarelto PO 20 mg DAILY@1800 [facility] Administration Sacubitril/Valsartan 1 tab 07/11/19 11:17 07/14/19 12:13 Entresto 49 Mg-51 Mg Tablet PO 1 tab BID [facility] Administration Tamsulosin HCl 0.4 mg 07/11/19 08:30 07/14/19 12:14 Flomax - PO 0.4 mg DAILY@0830 [facility] Administration Tramadol HCl 50 mg 07/11/19 17:01 07/13/19 21:33 Ultram - PO 50 mg Q12H PRN Administration PAIN- Laboratory Tests 07/10/19 07/13/19 07/14/19 16:46 15:00 05:30 Hemoglobin A1c % 7.9 H Urine Protein 4+ H Protein/Creatinin Ratio 5.2 Impression 1. ckd 2. proteinuria - nephrotic 3. chf 4. fluid overload 5. a-fib 6. htn 7. copd 8. dm Plan - pt with nephrotic range proteinuria - will need workup, can see in office - control glucose, a1c 7.9 - cont with lasix - low sodium diet - cardiac workup ongoing
--- NOTE | 2019-07-14 13:37 | PN ---
Progress Note, Physician Chief Complaint: patient seen after stress test hypoglcemia resolved seen by endocrine mihir adjsuted PICKETT is still there and chest pain with deep breaths - Current Medication List Current Medications: Active Medications Aspirin (Asa -) 81 mg PO DAILY [facility] Last Admin: 07/14/19 12:15 Dose: 81 mg Atorvastatin Calcium (Lipitor -) 40 mg PO HS [facility] Last Admin: 07/13/19 21:29 Dose: 40 mg Furosemide (Lasix Injection -) 40 mg IVPUSH DAILY [facility] Last Admin: 07/14/19 12:12 Dose: 40 mg Hydralazine HCl (Apresoline -) 10 mg PO BID [facility] Last Admin: 07/14/19 13:26 Dose: 10 mg Insulin Aspart (Novolog Vial Sliding Scale -) [address] [facility]; Protocol Last Admin: 07/14/19 12:16 Dose: 4 units Insulin Detemir (Levemir Vial) 15 units SQ AM [facility] Last Admin: 07/14/19 06:01 Dose: Not Given Isosorbide Mononitrate (Imdur -) 30 mg PO DAILY [facility] Last Admin: 07/14/19 12:15 Dose: 30 mg Metoprolol Succinate (Toprol Xl -) 100 mg PO DAILY [facility] Last Admin: 07/14/19 12:15 Dose: 100 mg Rivaroxaban (Xarelto) 20 mg PO DAILY@1800 [facility] Last Admin: 07/13/19 17:11 Dose: 20 mg Sacubitril/Valsartan (Entresto 49 Mg-51 Mg Tablet) 1 tab PO BID [facility] Last Admin: 07/14/19 12:13 Dose: 1 tab Tamsulosin HCl (Flomax -) 0.4 mg PO DAILY@0830 [facility] Last Admin: 07/14/19 12:14 Dose: 0.4 mg Tramadol HCl (Ultram -) 50 mg PO Q12H PRN PRN Reason: PAIN- Last Admin: 07/13/19 21:33 Dose: 50 mg - Objective Vital Signs: Vital Signs Temperature 98.0 F 07/14/19 08:00 Pulse Rate 67 07/14/19 07:57 Respiratory Rate 18 07/14/19 08:00 Blood Pressure 159/83 07/14/19 07:57 O2 Sat by Pulse Oximetry (%) 97 07/14/19 08:00 Constitutional: Yes: Calm Cardiovascular: Yes: Regular Rate and Rhythm, S1, S2 Respiratory: Yes: CTA Bilaterally Gastrointestinal: Yes: Normal Bowel Sounds, Soft Edema: Yes Neurological: Yes: Alert, Oriented Labs: CBC, BMP 07/11/19 06:36 07/14/19 05:30 INR, PTT INR 1.19 (0.83-1.09) H 07/11/19 06:36 Problem List - Problems (1) Acute on chronic systolic heart failure Assessment/Plan: iv lasix weights monitor lytes echo cardio consult Code(s): I50.23 - ACUTE ON CHRONIC SYSTOLIC (CONGESTIVE) HEART FAILURE (2) Atrial fibrillation Assessment/Plan: toprol xarelto Code(s): I48.91 - UNSPECIFIED ATRIAL FIBRILLATION (3) Diabetes mellitus Assessment/Plan: hypoglycemia resolved endocrine consult noted on levemir 15 units Code(s): E11.9 - TYPE 2 DIABETES MELLITUS WITHOUT COMPLICATIONS Qualifiers: Diabetes mellitus type: type 2 (4) HLD (hyperlipidemia) Assessment/Plan: statin Code(s): E78.5 - HYPERLIPIDEMIA, UNSPECIFIED (5) Peripheral vascular disease of lower extremity with ulceration Assessment/Plan: apprecite vasculr consult (6) Proteinuria Assessment/Plan: renal work up as oupatient Code(s): R80.9 - PROTEINURIA, UNSPECIFIED (7) Dyspnea Assessment/Plan: awaitin stress test reuslt Code(s): R06.00 - DYSPNEA, UNSPECIFIED Qualifiers: Dyspnea type: orthopnea Qualified Code(s): R06.01 - Orthopnea
--- NOTE | 2019-07-14 14:47 | PN ---
Progress Note, Physician Chief Complaint: chest pain History of Present Illness: 64 yo M with CAD, DM, and HfPEF. Ho AF sp ablation Adm with new exertional angina. Has chronically elevated TP. Also elevated CPK- MB. Echo showed normal LV function without valvulopathy and mild Pulm HTN - Current Medication List Current Medications: Active Medications Aspirin (Asa -) 81 mg PO DAILY [facility] Last Admin: 07/14/19 12:15 Dose: 81 mg Atorvastatin Calcium (Lipitor -) 40 mg PO HS [facility] Last Admin: 07/13/19 21:29 Dose: 40 mg Furosemide (Lasix Injection -) 40 mg IVPUSH DAILY [facility] Last Admin: 07/14/19 12:12 Dose: 40 mg Hydralazine HCl (Apresoline -) 10 mg PO BID [facility] Last Admin: 07/14/19 13:26 Dose: 10 mg Insulin Aspart (Novolog Vial Sliding Scale -) [address] [facility]; Protocol Last Admin: 07/14/19 12:16 Dose: 4 units Insulin Detemir (Levemir Vial) 15 units SQ AM [facility] Last Admin: 07/14/19 06:01 Dose: Not Given Isosorbide Mononitrate (Imdur -) 30 mg PO DAILY [facility] Last Admin: 07/14/19 12:15 Dose: 30 mg Metoprolol Succinate (Toprol Xl -) 100 mg PO DAILY [facility] Last Admin: 07/14/19 12:15 Dose: 100 mg Rivaroxaban (Xarelto) 20 mg PO DAILY@1800 [facility] Last Admin: 07/13/19 17:11 Dose: 20 mg Tamsulosin HCl (Flomax -) 0.4 mg PO DAILY@0830 [facility] Last Admin: 07/14/19 12:14 Dose: 0.4 mg Tramadol HCl (Ultram -) 50 mg PO Q12H PRN PRN Reason: PAIN- Last Admin: 07/13/19 21:33 Dose: 50 mg - Objective Vital Signs: Vital Signs Temperature 97.2 F L 07/14/19 13:37 Pulse Rate 67 07/14/19 07:57 Respiratory Rate 18 07/14/19 08:00 Blood Pressure 159/83 07/14/19 07:57 O2 Sat by Pulse Oximetry (%) 97 07/14/19 08:00 Constitutional: Yes: Well Nourished, No Distress, Calm Eyes: Yes: WNL, Conjunctiva Clear, EOM Intact HENT: Yes: WNL, Atraumatic, Normocephalic Neck: Yes: WNL, Supple, Trachea Midline Cardiovascular: Yes: WNL, Regular Rate and Rhythm Respiratory: Yes: WNL, Regular, CTA Bilaterally Gastrointestinal: Yes: WNL, Normal Bowel Sounds, Soft ...Rectal Exam: Yes: Deferred Genitourinary: Yes: WNL Breast(s): Yes: WNL Musculoskeletal: Yes: WNL Extremities: Yes: WNL Edema: No Peripheral Pulses WNL: Yes Neurological: Yes: WNL ...Motor Strength: WNL Psychiatric: Yes: WNL Labs: CBC, BMP 07/11/19 06:36 07/14/19 05:30 INR, PTT INR 1.19 (0.83-1.09) H 07/11/19 06:36 Assessment/Plan 64 yo M with CAD, DM, and HfPEF. Ho AF sp ablation Adm with new exertional angina. Has chronically elevated TP. Also elevated CPK- MB. Echo showed normal LV function without valvulopathy and mild Pulm HTN the patient'snuclear stress test showed a fixed inferior defectconsistent with diaphragmatic attenuation. CHF improved. May switch to oral Lasix 40 mg by mouth tomorrow. Continue the other medications as currently. No need for further cardiac workup at this point. Please do not hesitate to call us PRN
[2019-07-14] MEDS: traMADol HCL 50 MG TABLET PO PRN (16:29)
[2019-07-14] MEDS: RIVAROXABAN 20 MG TABLET PO SCH (17:04)
[2019-07-14] MEDS: ATORVASTATIN CA 40 MG TABLET (FP) PO SCH (21:34)
[2019-07-15] MEDS: INSULIN SLIDING SCALE (NOVOLOG) 1 VIAL SQ SCH ×4 (06:54→22:02)
[2019-07-15] MEDS: INSULIN (LEVEMIR) 100 UNITS/ML UNITS SQ SCH (06:55)
[2019-07-15 07:06] LABS: BASO % 0.7 % (0-2.0); EOS % 3.2 % (0-4.5); HEMATOCRIT 30.6 % (35.4-49); HEMOGLOBIN 10.1 GM/dL (11.7-16.9); LYMPH % 18.7 % (8-40); MCH 26.3 pg (25.7-33.7); MCHC 32.9 g/dl (32.0-35.9); MEAN CELL VOLUME 79.9 fl (80-96); MEAN PLT VOLUME 9.6 fl (7.5-11.1); MONO % 8.9 % (3.8-10.2); NEUT % 68.5 % (42.8-82.8); PLATELET COUNT 248 K/MM3 (134-434); RBC 3.83 M/mm3 (4.00-5.60); RDW 15.6 % (11.9-15.9); WHITE BLOOD COUNT 8.4 K/mm3 (4.0-10.0)
[2019-07-15 07:31] LABS: ALBUMIN 2.5 g/dl (3.4-5.0); BILIRUBIN,TOTAL 2.4 mg/dL (0.2-1); BLOOD UREA NITROGEN 31.5 mg/dL (7-18); CALCIUM 8.2 mg/dL (8.5-10.1); CREATININE 1.4 mg/dL (0.55-1.3); MAGNESIUM 1.7 mg/dL (1.8-2.4); POTASSIUM 3.7 mmol/L (3.5-5.1); TOT PROT 5.4 g/dl (6.4-8.2)
[2019-07-15] MEDS: ISOSORBIDE MONONITRATE 30 MG TAB.SR.24H (FP) PO SCH (09:05)
[2019-07-15] MEDS: TAMSULOSIN HCL 0.4 MG CAP PO SCH (09:06)
[2019-07-15] MEDS: hydrALAZINE HCL 10 MG TABLET PO SCH (09:06)
[2019-07-15] MEDS: ASPIRIN 81 MG CHEWABLE TABLETS PO SCH (09:06)
[2019-07-15] MEDS: FUROSEMIDE 40 MG/4 ML INJECTABLE VIAL IVPUSH SCH (09:07)
--- NOTE | 2019-07-15 09:11 | PN ---
Progress Note, Physician - Current Medication List Current Medications: Active Medications Aspirin (Asa -) 81 mg PO DAILY [facility] Last Admin: 07/15/19 09:06 Dose: 81 mg Atorvastatin Calcium (Lipitor -) 40 mg PO HS [facility] Last Admin: 07/14/19 21:34 Dose: 40 mg Furosemide (Lasix Injection -) 40 mg IVPUSH DAILY [facility] Last Admin: 07/15/19 09:07 Dose: 40 mg Hydralazine HCl (Apresoline -) 10 mg PO BID [facility] Last Admin: 07/15/19 09:06 Dose: 10 mg Insulin Aspart (Novolog Vial Sliding Scale -) 1 vial SQ ACHS [facility]; Protocol Last Admin: 07/15/19 06:54 Dose: 8 units Insulin Detemir (Levemir Vial) 15 units SQ AM [facility] Last Admin: 07/15/19 06:55 Dose: 15 unit Isosorbide Mononitrate (Imdur -) 30 mg PO DAILY [facility] Last Admin: 07/15/19 09:05 Dose: 30 mg Metoprolol Succinate (Toprol Xl -) 100 mg PO DAILY [facility] Last Admin: 07/15/19 09:06 Dose: 100 mg Rivaroxaban (Xarelto) 20 mg PO DAILY@1800 [facility] Last Admin: 07/14/19 17:04 Dose: 20 mg Tamsulosin HCl (Flomax -) 0.4 mg PO DAILY@0830 [facility] Last Admin: 07/15/19 09:06 Dose: 0.4 mg - Objective Vital Signs: Vital Signs Temperature 97.7 F 07/15/19 06:00 Pulse Rate 72 07/15/19 06:00 Respiratory Rate 20 07/15/19 06:00 Blood Pressure 182/99 H 07/15/19 06:00 O2 Sat by Pulse Oximetry (%) 95 07/14/19 20:41 Cardiovascular: Yes: S1, S2 Respiratory: Yes: Regular, CTA Bilaterally Gastrointestinal: Yes: Normal Bowel Sounds, Soft Edema: Yes Edema: LLE: 1+, RLE: 1+ Wound/Incision: Yes: Excoriated Labs: CBC, BMP 07/15/19 06:30 07/15/19 06:30 INR, PTT INR 1.19 (0.83-1.09) H 07/11/19 06:36 Assessment/Plan - Problems (1) Acute on chronic systolic heart failure Assessment/Plan: iv lasix--to demadex 40 qd weights monitor lytes-replace mag echo and scan 34% EF cardio consult noted bp control Code(s): I50.23 - ACUTE ON CHRONIC SYSTOLIC (CONGESTIVE) HEART FAILURE (2) Atrial fibrillation Assessment/Plan: toprol xarelto Code(s): I48.91 - UNSPECIFIED ATRIAL FIBRILLATION (3) Diabetes mellitus Assessment/Plan: hypoglycemia resolved endocrine consult noted on levemir 15 units Code(s): E11.9 - TYPE 2 DIABETES MELLITUS WITHOUT COMPLICATIONS Qualifiers: Diabetes mellitus type: type 2 (4) HLD (hyperlipidemia) Assessment/Plan: statin Code(s): E78.5 - HYPERLIPIDEMIA, UNSPECIFIED (5) Peripheral vascular disease of lower extremity with ulceration Assessment/Plan: apprecite vasculr consult wound care--Silvedine (6) Proteinuria Assessment/Plan: renal work up as oupatient Code(s): R80.9 - PROTEINURIA, UNSPECIFIED (7) Dyspnea Assessment/Plan: stress test result--lv dysfuntion fixed defect increase imdur Code(s): R06.00 - DYSPNEA, UNSPECIFIED Qualifiers: Dyspnea type: orthopnea Qualified Code(s): R06.01 - Orthopnea
[2019-07-15] MEDS: TORSEMIDE 20 MG TABLET (FP) PO SCH (10:34)
[2019-07-15] MEDS ORDERED: hydrALAZINE HCL 25 MG TABLET (FP) PO ONE (10:45)
[2019-07-15] MEDS: MAGNESIUM OXIDE 400 MG TABLET (FP) PO SCH ×2 (11:07→22:02)
[2019-07-15] MEDS: ISOSORBIDE MONONITRATE 60 MG TAB.SR.24H (FP) PO SCH (11:07)
[2019-07-15] MEDS: traMADol HCL 50 MG TABLET PO PRN (11:10)
[2019-07-15] MEDS: SILVER SULFADIAZINE 1% TOP CREAM 50 GM JAR TP SCH ×2 (11:15→22:03)
[2019-07-15] MEDS: hydrALAZINE HCL 25 MG TABLET (FP) PO SCH ×2 (11:33→22:02)
--- NOTE | 2019-07-15 12:02 | PN ---
Progress Note, Physician History of Present Illness: pulmonary alert,,feeling better,less dyspneic. lexiscan negative - Current Medication List Current Medications: Active Medications Aspirin (Asa -) 81 mg PO DAILY [facility] Last Admin: 07/15/19 09:06 Dose: 81 mg Atorvastatin Calcium (Lipitor -) 40 mg PO HS [facility] Last Admin: 07/14/19 21:34 Dose: 40 mg Hydralazine HCl (Apresoline -) 25 mg PO BID [facility] Last Admin: 07/15/19 11:33 Dose: 25 mg Insulin Aspart (Novolog Vial Sliding Scale -) 1 vial SQ ACHS [facility]; Protocol Last Admin: 07/15/19 11:38 Dose: 2 units Insulin Detemir (Levemir Vial) 15 units SQ AM [facility] Last Admin: 07/15/19 06:55 Dose: 15 unit Isosorbide Mononitrate (Imdur -) 60 mg PO DAILY [facility] Last Admin: 07/15/19 11:07 Dose: 60 mg Magnesium Oxide (Mag-Ox -) 400 mg PO BID [facility] Last Admin: 07/15/19 11:07 Dose: 400 mg Metoprolol Succinate (Toprol Xl -) 100 mg PO DAILY [facility] Last Admin: 07/15/19 09:06 Dose: 100 mg Rivaroxaban (Xarelto) 20 mg PO DAILY@1800 [facility] Last Admin: 07/14/19 17:04 Dose: 20 mg Silver Sulfadiazine (Silvadene -) 1 applic TP BID [facility] Last Admin: 07/15/19 11:15 Dose: 1 applic Tamsulosin HCl (Flomax -) 0.4 mg PO DAILY@0830 [facility] Last Admin: 07/15/19 09:06 Dose: 0.4 mg Torsemide (Demadex -) 40 mg PO DAILY [facility] Last Admin: 07/15/19 10:34 Dose: Not Given Tramadol HCl (Ultram -) 50 mg PO BID PRN PRN Reason: PAIN- Last Admin: 07/15/19 11:10 Dose: 50 mg - Objective Vital Signs: Vital Signs Temperature 98.0 F 07/15/19 08:15 Pulse Rate 68 07/15/19 11:05 Respiratory Rate 18 07/15/19 11:05 Blood Pressure 178/86 H 07/15/19 11:05 O2 Sat by Pulse Oximetry (%) 95 07/14/19 20:41 Constitutional: Yes: Well Nourished, Calm Eyes: Yes: WNL HENT: Yes: WNL Neck: Yes: WNL Cardiovascular: Yes: Pulse Irregular, S1, S2 Respiratory: Yes: Rales (BIBASILAR CRACKLES) Gastrointestinal: Yes: Normal Bowel Sounds, Soft Extremities: Yes: WNL Edema: No Labs: CBC, BMP 07/15/19 06:30 07/15/19 06:30 INR, PTT INR 1.19 (0.83-1.09) H 07/11/19 06:36 Problem List - Problems (1) Pulmonary HTN Code(s): I27.20 - PULMONARY HYPERTENSION, UNSPECIFIED (2) CHF (congestive heart failure) Code(s): I50.9 - HEART FAILURE, UNSPECIFIED Qualifiers: Heart failure type: unspecified Heart failure chronicity: unspecified Qualified Code(s): I50.9 - Heart failure, unspecified (3) Dyspnea Code(s): R06.00 - DYSPNEA, UNSPECIFIED Qualifiers: Dyspnea type: orthopnea Qualified Code(s): R06.01 - Orthopnea (4) Acute exacerbation of chronic obstructive pulmonary disease (COPD) Code(s): J44.1 - CHRONIC OBSTRUCTIVE PULMONARY DISEASE W (ACUTE) EXACERBATION (5) Anemia Code(s): D64.9 - ANEMIA, UNSPECIFIED (6) Atrial fibrillation Code(s): I48.91 - UNSPECIFIED ATRIAL FIBRILLATION (7) COPD (chronic obstructive pulmonary disease) Code(s): J44.9 - CHRONIC OBSTRUCTIVE PULMONARY DISEASE, UNSPECIFIED (8) H/O heart artery stent Code(s): Z95.5 - PRESENCE OF CORONARY ANGIOPLASTY IMPLANT AND GRAFT (9) PAF (paroxysmal atrial fibrillation) Code(s): I48.0 - PAROXYSMAL ATRIAL FIBRILLATION (10) ASHD (arteriosclerotic heart disease) Code(s): I25.10 - ATHSCL HEART DISEASE OF [place] CORONARY ARTERY W/O ANG PCTRS Assessment/Plan IMP DYSPNEA IMPROVING DIASTOLIC CHF COPD ASHD S/P STENT ANEMIA PULMONARY HTN AFIB S/P ABLATION DM HTN HLD PLAN LASIX O2 NEEDED ELIQUIS INHALED BRONCHODILATORS STRICT I+OS DR GOMEZ Problem List - Problems (1) Pulmonary HTN Code(s): I27.20 - PULMONARY HYPERTENSION, UNSPECIFIED (2) CHF (congestive heart failure) Code(s): I50.9 - HEART FAILURE, UNSPECIFIED Qualifiers: Heart failure type: unspecified Heart failure chronicity: unspecified Qualified Code(s): I50.9 - Heart failure, unspecified (3) Dyspnea Code(s): R06.00 - DYSPNEA, UNSPECIFIED Qualifiers: Dyspnea type: orthopnea Qualified Code(s): R06.01 - Orthopnea (4) Acute exacerbation of chronic obstructive pulmonary disease (COPD) Code(s): J44.1 - CHRONIC OBSTRUCTIVE PULMONARY DISEASE W (ACUTE) EXACERBATION (5) Anemia Code(s): D64.9 - ANEMIA, UNSPECIFIED (6) Atrial fibrillation Code(s): I48.91 - UNSPECIFIED ATRIAL FIBRILLATION (7) COPD (chronic obstructive pulmonary disease) Code(s): J44.9 - CHRONIC OBSTRUCTIVE PULMONARY DISEASE, UNSPECIFIED (8) H/O heart artery stent Code(s): Z95.5 - PRESENCE OF CORONARY ANGIOPLASTY IMPLANT AND GRAFT (9) PAF (paroxysmal atrial fibrillation) Code(s): I48.0 - PAROXYSMAL ATRIAL FIBRILLATION (10) ASHD (arteriosclerotic heart disease) Code(s): I25.10 - ATHSCL HEART DISEASE OF [place] CORONARY ARTERY W/O ANG PCTRS
--- NOTE | 2019-07-15 12:27 | PN ---
Progress Note, Physician History of Present Illness: Pt seen and examined at bedside. He is awake and alert. He feels that his edema is improving and his shortness of breath is improving. - Current Medication List Current Medications: Active Medications Aspirin (Asa -) 81 mg PO DAILY [facility] Last Admin: 07/15/19 09:06 Dose: 81 mg Atorvastatin Calcium (Lipitor -) 40 mg PO HS [facility] Last Admin: 07/14/19 21:34 Dose: 40 mg Hydralazine HCl (Apresoline -) 25 mg PO BID [facility] Last Admin: 07/15/19 11:33 Dose: 25 mg Insulin Aspart (Novolog Vial Sliding Scale -) 1 vial SQ ACHS [facility]; Protocol Last Admin: 07/15/19 11:38 Dose: 2 units Insulin Detemir (Levemir Vial) 15 units SQ AM [facility] Last Admin: 07/15/19 06:55 Dose: 15 unit Isosorbide Mononitrate (Imdur -) 60 mg PO DAILY [facility] Last Admin: 07/15/19 11:07 Dose: 60 mg Magnesium Oxide (Mag-Ox -) 400 mg PO BID [facility] Last Admin: 07/15/19 11:07 Dose: 400 mg Metoprolol Succinate (Toprol Xl -) 100 mg PO DAILY [facility] Last Admin: 07/15/19 09:06 Dose: 100 mg Rivaroxaban (Xarelto) 20 mg PO DAILY@1800 [facility] Last Admin: 07/14/19 17:04 Dose: 20 mg Silver Sulfadiazine (Silvadene -) 1 applic TP BID [facility] Last Admin: 07/15/19 11:15 Dose: 1 applic Tamsulosin HCl (Flomax -) 0.4 mg PO DAILY@0830 [facility] Last Admin: 07/15/19 09:06 Dose: 0.4 mg Torsemide (Demadex -) 40 mg PO DAILY [facility] Last Admin: 07/15/19 10:34 Dose: Not Given Tramadol HCl (Ultram -) 50 mg PO BID PRN PRN Reason: PAIN- Last Admin: 07/15/19 11:10 Dose: 50 mg - Objective Vital Signs: Vital Signs Temperature 98.0 F 07/15/19 08:15 Pulse Rate 68 07/15/19 11:05 Respiratory Rate 18 07/15/19 11:05 Blood Pressure 178/86 H 07/15/19 11:05 O2 Sat by Pulse Oximetry (%) 95 09/23/19 20:41 Constitutional: Yes: Calm Eyes: Yes: Conjunctiva Clear HENT: Yes: Atraumatic Neck: Yes: Supple Cardiovascular: Yes: S1, S2 Respiratory: Yes: CTA Bilaterally Gastrointestinal: Yes: Soft Genitourinary: Yes: WNL Musculoskeletal: Yes: WNL Edema: Yes Edema: LLE: 1+, RLE: 1+ Integumentary: Yes: Venous Stasis Changes Neurological: Yes: Oriented Psychiatric: Yes: Oriented Labs: CBC, BMP 07/15/19 06:30 07/15/19 06:30 INR, PTT INR 1.19 (0.83-1.09) H 07/11/19 06:36 Problem List - Problems (1) Proteinuria Code(s): R80.9 - PROTEINURIA, UNSPECIFIED (2) CAD S/P percutaneous coronary angioplasty Code(s): I25.10 - ATHSCL HEART DISEASE OF [place] CORONARY ARTERY W/O ANG PCTRS; Z98.61 - CORONARY ANGIOPLASTY STATUS (3) CHF (congestive heart failure) Code(s): I50.9 - HEART FAILURE, UNSPECIFIED Qualifiers: Qualified Code(s): I50.9 - Heart failure, unspecified (4) HLD (hyperlipidemia) Code(s): E78.5 - HYPERLIPIDEMIA, UNSPECIFIED (5) Pulmonary HTN Code(s): I27.20 - PULMONARY HYPERTENSION, UNSPECIFIED Assessment/Plan Current Medications Generic Name Dose Route Start Last Admin Trade Name Freq PRN Reason Stop Dose Admin Aspirin 81 mg 07/11/19 10:00 07/15/19 09:06 Asa - PO 81 mg DAILY [facility] Administration Atorvastatin Calcium 40 mg 07/10/19 22:00 07/14/19 21:34 Lipitor - PO 40 mg HS [facility] Administration Hydralazine HCl 25 mg 07/15/19 10:00 07/15/19 11:33 Apresoline - PO 25 mg BID [facility] Administration Insulin Aspart 1 vial 07/12/19 19:39 07/15/19 11:38 Novolog Vial Sliding Scale - SQ 2 units ACHS [facility] Administration Protocol Insulin Detemir 15 units 07/13/19 20:46 07/15/19 06:55 Levemir Vial SQ 15 unit AM [facility] Administration Isosorbide Mononitrate 60 mg 07/15/19 09:10 07/15/19 11:07 Imdur - PO 60 mg DAILY [facility] Administration Magnesium Oxide 400 mg 07/15/19 10:00 07/15/19 11:07 Mag-Ox - PO 400 mg BID [facility] Administration Metoprolol Succinate 100 mg 07/11/19 10:00 07/15/19 09:06 Toprol Xl - PO 100 mg DAILY [facility] Administration Rivaroxaban 20 mg 07/10/19 18:00 07/14/19 17:04 Xarelto PO 20 mg DAILY@1800 [facility] Administration Silver Sulfadiazine 1 applic 07/15/19 10:00 07/15/19 11:15 Silvadene - TP 1 applic BID [facility] Administration Tamsulosin HCl 0.4 mg 07/11/19 08:30 07/15/19 09:06 Flomax - PO 0.4 mg DAILY@0830 [facility] Administration Torsemide 40 mg 07/15/19 10:00 07/15/19 10:34 Demadex - PO Not Given DAILY [facility] Tramadol HCl 50 mg 07/15/19 10:30 07/15/19 11:10 Ultram - PO 50 mg BID PRN Administration PAIN- Impression 1. ckd 2. proteinuria - nephrotic 3. chf 4. fluid overload 5. a-fib 6. htn 7. copd 8. dm Plan - cont diuretics, agree with transition to PO - will need outpt follow up - will need proteinuria workup - low sodium diet - cardiac input appreciated
[2019-07-15] MEDS: RIVAROXABAN 20 MG TABLET PO SCH (17:02)
[2019-07-15] MEDS: ATORVASTATIN CA 40 MG TABLET (FP) PO SCH (22:02)
[2019-07-16] MEDS: traMADol HCL 50 MG TABLET PO PRN ×2 (04:32→18:17)
[2019-07-16] MEDS: INSULIN (LEVEMIR) 100 UNITS/ML UNITS SQ SCH (06:23)
[2019-07-16] MEDS: INSULIN SLIDING SCALE (NOVOLOG) 1 VIAL SQ SCH ×4 (06:23→21:30)
[2019-07-16] MEDS ORDERED: PT OWN MED DRAWER 7, Y5N ONE (06:39)
[2019-07-16] MEDS: MAGNESIUM OXIDE 400 MG TABLET (FP) PO SCH ×2 (09:33→21:30)
[2019-07-16] MEDS: ISOSORBIDE MONONITRATE 60 MG TAB.SR.24H (FP) PO SCH (09:33)
[2019-07-16] MEDS: TORSEMIDE 20 MG TABLET (FP) PO SCH (09:34)
[2019-07-16] MEDS: hydrALAZINE HCL 25 MG TABLET (FP) PO SCH (09:34)
[2019-07-16] MEDS: TAMSULOSIN HCL 0.4 MG CAP PO SCH (09:34)
[2019-07-16] MEDS: ASPIRIN 81 MG CHEWABLE TABLETS PO SCH (09:34)
[2019-07-16] MEDS: SILVER SULFADIAZINE 1% TOP CREAM 50 GM JAR TP SCH ×2 (09:35→21:25)
--- NOTE | 2019-07-16 10:02 | PN ---
Progress Note, Physician - Current Medication List Current Medications: Active Medications Aspirin (Asa -) 81 mg PO DAILY [facility] Last Admin: 07/16/19 09:34 Dose: 81 mg Atorvastatin Calcium (Lipitor -) 40 mg PO HS [facility] Last Admin: 07/15/19 22:02 Dose: 40 mg Hydralazine HCl (Apresoline -) 25 mg PO BID [facility] Last Admin: 07/16/19 09:34 Dose: 25 mg Insulin Aspart (Novolog Vial Sliding Scale -) 1 vial SQ ACHS [facility]; Protocol Last Admin: 07/16/19 06:23 Dose: 2 units Insulin Detemir (Levemir Vial) 20 units SQ AM [facility] Last Admin: 07/16/19 06:23 Dose: 20 units Isosorbide Mononitrate (Imdur -) 60 mg PO DAILY [facility] Last Admin: 07/16/19 09:33 Dose: 60 mg Magnesium Oxide (Mag-Ox -) 400 mg PO BID [facility] Last Admin: 07/16/19 09:33 Dose: 400 mg Metoprolol Succinate (Toprol Xl -) 100 mg PO DAILY [facility] Last Admin: 07/16/19 09:35 Dose: 100 mg Rivaroxaban (Xarelto) 20 mg PO DAILY@1800 [facility] Last Admin: 07/15/19 17:02 Dose: 20 mg Silver Sulfadiazine (Silvadene -) 1 applic TP BID [facility] Last Admin: 07/16/19 09:35 Dose: 1 applic Tamsulosin HCl (Flomax -) 0.4 mg PO DAILY@0830 [facility] Last Admin: 07/16/19 09:34 Dose: 0.4 mg Torsemide (Demadex -) 40 mg PO DAILY [facility] Last Admin: 07/16/19 09:34 Dose: 40 mg Tramadol HCl (Ultram -) 50 mg PO BID PRN PRN Reason: PAIN- Last Admin: 07/16/19 04:32 Dose: 50 mg - Objective Vital Signs: Vital Signs Temperature 98.8 F 07/16/19 08:15 Pulse Rate 71 07/16/19 08:15 Respiratory Rate 18 07/16/19 08:15 Blood Pressure 172/95 H 07/16/19 08:15 O2 Sat by Pulse Oximetry (%) 97 07/15/19 21:00 Cardiovascular: Yes: S1, S2 Respiratory: Yes: Regular, CTA Bilaterally Gastrointestinal: Yes: Normal Bowel Sounds, Soft Edema: Yes Labs: CBC, BMP 07/15/19 06:30 07/15/19 06:30 INR, PTT INR 1.19 (0.83-1.09) H 07/11/19 06:36 Assessment/Plan - Problems (1) Acute on chronic systolic heart failure Assessment/Plan: iv lasix--to demadex 40 qd weights monitor lytes-replace mag echo and scan 34% EF cardio consult noted bp control Code(s): I50.23 - ACUTE ON CHRONIC SYSTOLIC (CONGESTIVE) HEART FAILURE (2) Atrial fibrillation Assessment/Plan: toprol xarelto Code(s): I48.91 - UNSPECIFIED ATRIAL FIBRILLATION (3) Diabetes mellitus Assessment/Plan: hypoglycemia resolved endocrine consult noted on levemir 15 units Code(s): E11.9 - TYPE 2 DIABETES MELLITUS WITHOUT COMPLICATIONS Qualifiers: Diabetes mellitus type: type 2 (4) HLD (hyperlipidemia) Assessment/Plan: statin Code(s): E78.5 - HYPERLIPIDEMIA, UNSPECIFIED (5) Peripheral vascular disease of lower extremity with ulceration Assessment/Plan: apprecite vasculr consult wound care--Silvedine (6) Proteinuria Assessment/Plan: renal work up as oupatient Code(s): R80.9 - PROTEINURIA, UNSPECIFIED (7) Dyspnea Assessment/Plan: stress test result--lv dysfuntion fixed defect increase imdur Code(s): R06.00 - DYSPNEA, UNSPECIFIED Qualifiers: Dyspnea type: orthopnea Qualified Code(s): R06.01 - Orthopnea (8) HTN Assessment/Plan: elevated Increase hydralazine to 50 bid Metoprolol succ 100 qd Add NOrvasc 5 qd once bp better controlled will dc home
[2019-07-16] MEDS ORDERED: hydrALAZINE HCL 50 MG TABLET (FP) PO ONE (10:30)
[2019-07-16] MEDS: amLODIPine BESYLATE 5 MG TABLET (FP) PO SCH (10:57)
--- NOTE | 2019-07-16 11:38 | PN ---
Progress Note, Physician History of Present Illness: pulmonary alert,comfortable,-cp,occ chest tightness - Current Medication List Current Medications: Active Medications Amlodipine Besylate (Norvasc -) 5 mg PO DAILY [facility] Last Admin: 07/16/19 10:57 Dose: 5 mg Aspirin (Asa -) 81 mg PO DAILY [facility] Last Admin: 07/16/19 09:34 Dose: 81 mg Atorvastatin Calcium (Lipitor -) 40 mg PO HS [facility] Last Admin: 07/15/19 22:02 Dose: 40 mg Hydralazine HCl (Apresoline -) 50 mg PO BID [facility] Insulin Aspart (Novolog Vial Sliding Scale -) 1 vial SQ ACHS [facility]; Protocol Last Admin: 07/16/19 11:06 Dose: 4 units Insulin Detemir (Levemir Vial) 20 units SQ AM [facility] Last Admin: 07/16/19 06:23 Dose: 20 units Isosorbide Mononitrate (Imdur -) 60 mg PO DAILY [facility] Last Admin: 07/16/19 09:33 Dose: 60 mg Magnesium Oxide (Mag-Ox -) 400 mg PO BID [facility] Last Admin: 07/16/19 09:33 Dose: 400 mg Metoprolol Succinate (Toprol Xl -) 100 mg PO DAILY [facility] Last Admin: 07/16/19 09:35 Dose: 100 mg Rivaroxaban (Xarelto) 20 mg PO DAILY@1800 [facility] Last Admin: 07/15/19 17:02 Dose: 20 mg Silver Sulfadiazine (Silvadene -) 1 applic TP BID [facility] Last Admin: 07/16/19 09:35 Dose: 1 applic Tamsulosin HCl (Flomax -) 0.4 mg PO DAILY@0830 [facility] Last Admin: 07/16/19 09:34 Dose: 0.4 mg Torsemide (Demadex -) 40 mg PO DAILY [facility] Last Admin: 07/16/19 09:34 Dose: 40 mg Tramadol HCl (Ultram -) 50 mg PO BID PRN PRN Reason: PAIN- Last Admin: 07/16/19 04:32 Dose: 50 mg - Objective Vital Signs: Vital Signs Temperature 98.8 F 07/16/19 08:15 Pulse Rate 71 07/16/19 08:15 Respiratory Rate 18 07/16/19 08:15 Blood Pressure 172/95 H 07/16/19 08:15 O2 Sat by Pulse Oximetry (%) 97 07/15/19 21:00 Constitutional: Yes: Well Nourished, Calm Eyes: Yes: WNL HENT: Yes: WNL Neck: Yes: WNL Cardiovascular: Yes: Pulse Irregular, S1, S2 Respiratory: Yes: CTA Bilaterally Gastrointestinal: Yes: Normal Bowel Sounds, Soft Extremities: Yes: WNL Edema: Yes Edema: LLE: Trace, RLE: Trace Labs: Problem List - Problems (1) Pulmonary HTN Code(s): I27.20 - PULMONARY HYPERTENSION, UNSPECIFIED (2) CHF (congestive heart failure) Code(s): I50.9 - HEART FAILURE, UNSPECIFIED Qualifiers: Heart failure type: unspecified Heart failure chronicity: unspecified Qualified Code(s): I50.9 - Heart failure, unspecified (3) Dyspnea Code(s): R06.00 - DYSPNEA, UNSPECIFIED Qualifiers: Dyspnea type: orthopnea Qualified Code(s): R06.01 - Orthopnea (4) Acute exacerbation of chronic obstructive pulmonary disease (COPD) Code(s): J44.1 - CHRONIC OBSTRUCTIVE PULMONARY DISEASE W (ACUTE) EXACERBATION (5) Anemia Code(s): D64.9 - ANEMIA, UNSPECIFIED (6) Atrial fibrillation Code(s): I48.91 - UNSPECIFIED ATRIAL FIBRILLATION (7) COPD (chronic obstructive pulmonary disease) Code(s): J44.9 - CHRONIC OBSTRUCTIVE PULMONARY DISEASE, UNSPECIFIED (8) H/O heart artery stent Code(s): Z95.5 - PRESENCE OF CORONARY ANGIOPLASTY IMPLANT AND GRAFT (9) PAF (paroxysmal atrial fibrillation) Code(s): I48.0 - PAROXYSMAL ATRIAL FIBRILLATION (10) ASHD (arteriosclerotic heart disease) Code(s): I25.10 - ATHSCL HEART DISEASE OF [place] CORONARY ARTERY W/O ANG PCTRS Assessment/Plan IMP DYSPNEA IMPROVING DIASTOLIC CHF COPD ASHD S/P STENT ANEMIA PULMONARY HTN AFIB S/P ABLATION DM HTN HLD PLAN DIURETICS O2 NEEDED ELIQUIS INHALED BRONCHODILATORS STRICT I+OS DR GOMEZ Problem List - Problems (1) Pulmonary HTN Code(s): I27.20 - PULMONARY HYPERTENSION, UNSPECIFIED (2) CHF (congestive heart failure) Code(s): I50.9 - HEART FAILURE, UNSPECIFIED Qualifiers: Heart failure type: unspecified Heart failure chronicity: unspecified Qualified Code(s): I50.9 - Heart failure, unspecified (3) Dyspnea Code(s): R06.00 - DYSPNEA, UNSPECIFIED Qualifiers: Dyspnea type: orthopnea Qualified Code(s): R06.01 - Orthopnea (4) Acute exacerbation of chronic obstructive pulmonary disease (COPD) Code(s): J44.1 - CHRONIC OBSTRUCTIVE PULMONARY DISEASE W (ACUTE) EXACERBATION (5) Anemia Code(s): D64.9 - ANEMIA, UNSPECIFIED (6) Atrial fibrillation Code(s): I48.91 - UNSPECIFIED ATRIAL FIBRILLATION (7) COPD (chronic obstructive pulmonary disease) Code(s): J44.9 - CHRONIC OBSTRUCTIVE PULMONARY DISEASE, UNSPECIFIED (8) H/O heart artery stent Code(s): Z95.5 - PRESENCE OF CORONARY ANGIOPLASTY IMPLANT AND GRAFT (9) PAF (paroxysmal atrial fibrillation) Code(s): I48.0 - PAROXYSMAL ATRIAL FIBRILLATION (10) ASHD (arteriosclerotic heart disease) Code(s): I25.10 - ATHSCL HEART DISEASE OF [place] CORONARY ARTERY W/O ANG PCTRS
[2019-07-16 11:40] LABS: BLOOD UREA NITROGEN 30.3 mg/dL (7-18); CALCIUM 8.7 mg/dL (8.5-10.1); CREATININE 1.3 mg/dL (0.55-1.3); MAGNESIUM 1.8 mg/dL (1.8-2.4); POTASSIUM 3.5 mmol/L (3.5-5.1)
--- NOTE | 2019-07-16 12:53 | PN ---
Progress Note, Physician History of Present Illness: Pt seen and examined at bedside. He is awake and alert. he denies shortness of breath. - Current Medication List Current Medications: Active Medications Amlodipine Besylate (Norvasc -) 5 mg PO DAILY [facility] Last Admin: 07/16/19 10:57 Dose: 5 mg Aspirin (Asa -) 81 mg PO DAILY [facility] Last Admin: 07/16/19 09:34 Dose: 81 mg Atorvastatin Calcium (Lipitor -) 40 mg PO HS [facility] Last Admin: 07/15/19 22:02 Dose: 40 mg Hydralazine HCl (Apresoline -) 50 mg PO BID [facility] Insulin Aspart (Novolog Vial Sliding Scale -) 1 vial SQ ACHS [facility]; Protocol Last Admin: 07/16/19 11:06 Dose: 4 units Insulin Detemir (Levemir Vial) 20 units SQ AM [facility] Last Admin: 07/16/19 06:23 Dose: 20 units Isosorbide Mononitrate (Imdur -) 60 mg PO DAILY [facility] Last Admin: 07/16/19 09:33 Dose: 60 mg Magnesium Oxide (Mag-Ox -) 400 mg PO BID [facility] Last Admin: 07/16/19 09:33 Dose: 400 mg Metoprolol Succinate (Toprol Xl -) 100 mg PO DAILY [facility] Last Admin: 07/16/19 09:35 Dose: 100 mg Rivaroxaban (Xarelto) 20 mg PO DAILY@1800 [facility] Last Admin: 07/15/19 17:02 Dose: 20 mg Silver Sulfadiazine (Silvadene -) 1 applic TP BID [facility] Last Admin: 07/16/19 09:35 Dose: 1 applic Tamsulosin HCl (Flomax -) 0.4 mg PO DAILY@0830 [facility] Last Admin: 07/16/19 09:34 Dose: 0.4 mg Torsemide (Demadex -) 40 mg PO DAILY [facility] Last Admin: 07/16/19 09:34 Dose: 40 mg Tramadol HCl (Ultram -) 50 mg PO BID PRN PRN Reason: PAIN- Last Admin: 07/16/19 04:32 Dose: 50 mg - Objective Vital Signs: Vital Signs Temperature 98.8 F 07/16/19 08:15 Pulse Rate 71 07/16/19 08:15 Respiratory Rate 18 07/16/19 08:15 Blood Pressure 172/95 H 07/16/19 08:15 O2 Sat by Pulse Oximetry (%) 97 07/15/19 21:00 Constitutional: Yes: Calm Eyes: Yes: Conjunctiva Clear HENT: Yes: Atraumatic Neck: Yes: Supple Cardiovascular: Yes: S1, S2 Respiratory: Yes: CTA Bilaterally Gastrointestinal: Yes: Normal Bowel Sounds, Soft Genitourinary: Yes: WNL Musculoskeletal: Yes: WNL Edema: Yes Edema: LLE: 1+, RLE: 1+ Integumentary: Yes: WNL Neurological: Yes: Oriented Psychiatric: Yes: Oriented Labs: CBC, BMP 07/15/19 06:30 07/16/19 10:42 INR, PTT INR 1.19 (0.83-1.09) H 07/11/19 06:36 Problem List - Problems (1) Proteinuria Code(s): R80.9 - PROTEINURIA, UNSPECIFIED (2) CAD S/P percutaneous coronary angioplasty Code(s): I25.10 - ATHSCL HEART DISEASE OF [place] CORONARY ARTERY W/O ANG PCTRS; Z98.61 - CORONARY ANGIOPLASTY STATUS (3) CHF (congestive heart failure) Code(s): I50.9 - HEART FAILURE, UNSPECIFIED Qualifiers: Heart failure type: unspecified Heart failure chronicity: unspecified Qualified Code(s): I50.9 - Heart failure, unspecified (4) HLD (hyperlipidemia) Code(s): E78.5 - HYPERLIPIDEMIA, UNSPECIFIED (5) Pulmonary HTN Code(s): I27.20 - PULMONARY HYPERTENSION, UNSPECIFIED Assessment/Plan Current Medications Generic Name Dose Route Start Last Admin Trade Name Freq PRN Reason Stop Dose Admin Amlodipine Besylate 5 mg 07/16/19 10:00 07/16/19 10:57 Norvasc - PO 5 mg DAILY [facility] Administration Aspirin 81 mg 07/11/19 10:00 07/16/19 09:34 Asa - PO 81 mg DAILY [facility] Administration Atorvastatin Calcium 40 mg 07/10/19 22:00 07/15/19 22:02 Lipitor - PO 40 mg HS [facility] Administration Hydralazine HCl 50 mg 07/16/19 22:00 Apresoline - PO BID [facility] Insulin Aspart 1 vial 07/12/19 19:39 07/16/19 11:06 Novolog Vial Sliding Scale - SQ 4 units ACHS [facility] Administration Protocol Insulin Detemir 20 units 07/16/19 00:33 07/16/19 06:23 Levemir Vial SQ 20 units AM [facility] Administration Isosorbide Mononitrate 60 mg 07/15/19 09:10 07/16/19 09:33 Imdur - PO 60 mg DAILY [facility] Administration Magnesium Oxide 400 mg 07/15/19 10:00 07/16/19 09:33 Mag-Ox - PO 400 mg BID [facility] Administration Metoprolol Succinate 100 mg 07/11/19 10:00 07/16/19 09:35 Toprol Xl - PO 100 mg DAILY [facility] Administration Rivaroxaban 20 mg 07/10/19 18:00 07/15/19 17:02 Xarelto PO 20 mg DAILY@1800 [facility] Administration Silver Sulfadiazine 1 applic 07/15/19 10:00 07/16/19 09:35 Silvadene - TP 1 applic BID [facility] Administration Tamsulosin HCl 0.4 mg 07/11/19 08:30 07/16/19 09:34 Flomax - PO 0.4 mg DAILY@0830 [facility] Administration Torsemide 40 mg 07/15/19 10:00 07/16/19 09:34 Demadex - PO 40 mg DAILY [facility] Administration Tramadol HCl 50 mg 07/15/19 10:30 07/16/19 04:32 Ultram - PO 50 mg BID PRN Administration PAIN- Impression 1. ckd 2. proteinuria - nephrotic 3. chf 4. fluid overload 5. a-fib 6. htn 7. copd 8. dm Plan - renal function stable - outpt proteinuria workup - monitor bp on current meds - titrate hydralazine as tolerated - low sodium diet - cardiac input appreciated
[2019-07-16] MEDS: RIVAROXABAN 20 MG TABLET PO SCH (17:00)
[2019-07-16] MEDS ORDERED: POTASSIUM CHLORIDE TABS 10 MEQ TABLET.ER (FP) PO ONE (18:45)
[2019-07-16] MEDS: ATORVASTATIN CA 40 MG TABLET (FP) PO SCH (21:30)
[2019-07-16] MEDS: hydrALAZINE HCL 50 MG TABLET (FP) PO SCH (21:30)
[2019-07-17] MEDS: INSULIN SLIDING SCALE (NOVOLOG) 1 VIAL SQ SCH ×4 (06:00→21:04)
[2019-07-17] MEDS: INSULIN (LEVEMIR) 100 UNITS/ML UNITS SQ SCH (06:53)
[2019-07-17] MEDS: traMADol HCL 50 MG TABLET PO PRN (08:35)
[2019-07-17] MEDS: TAMSULOSIN HCL 0.4 MG CAP PO SCH (08:35)
[2019-07-17] MEDS: ISOSORBIDE MONONITRATE 60 MG TAB.SR.24H (FP) PO SCH (09:20)
[2019-07-17] MEDS: POTASSIUM CHLORIDE TABS 10 MEQ TABLET.ER (FP) PO SCH (09:20)
[2019-07-17] MEDS: amLODIPine BESYLATE 5 MG TABLET (FP) PO SCH (09:20)
[2019-07-17] MEDS: ASPIRIN 81 MG CHEWABLE TABLETS PO SCH (09:20)
[2019-07-17] MEDS: hydrALAZINE HCL 50 MG TABLET (FP) PO SCH ×3 (09:20→21:06)
[2019-07-17] MEDS: MAGNESIUM OXIDE 400 MG TABLET (FP) PO SCH ×2 (09:21→21:05)
[2019-07-17] MEDS: TORSEMIDE 20 MG TABLET (FP) PO SCH (09:21)
[2019-07-17] MEDS: SILVER SULFADIAZINE 1% TOP CREAM 50 GM JAR TP SCH ×2 (11:01→21:04)
[2019-07-17] MEDS ORDERED: AMMONIUM LACTATE 12% LOTION 225 GM BOTTLE TP PRN (12:31)
--- NOTE | 2019-07-17 12:37 | DS ---
Physical Examination Vital Signs: Vital Signs Temperature 98.8 F 07/17/19 10:00 Pulse Rate 74 07/17/19 10:00 Respiratory Rate 20 07/17/19 10:00 Blood Pressure 176/84 H 07/17/19 10:00 O2 Sat by Pulse Oximetry (%) 95 07/17/19 09:00 Constitutional: Yes: Calm Cardiovascular: Yes: Regular Rate and Rhythm, S1, S2 Respiratory: Yes: CTA Bilaterally Gastrointestinal: Yes: Normal Bowel Sounds, Soft Edema: Yes (improved) Neurological: Yes: Alert, Oriented Labs: CBC, BMP 07/15/19 06:30 07/16/19 10:42 Discharge Summary Problems reviewed: Yes Reason For Visit: CHF Current Active Problems ASHD (arteriosclerotic heart disease) (Acute) CAD S/P percutaneous coronary angioplasty (Acute) CHF (congestive heart failure) (Acute) Dyspnea (Acute) HLD (hyperlipidemia) (Acute) Proteinuria (Acute) Pulmonary HTN (Acute) Type 2 diabetes mellitus with diabetic nephropathy (Acute) Hospital Course: Admission Chief Complaint: came in for shortness ofbreath History of Present Illness: Pt is a 64 yo M, with PMH of Emily-Js syndrome, HTN, HLD, DM (with chronic venous insufficiency in b/l LE and MRSA in the past), COPD (on albuterol), dCHF (last EF 55%), CAD (s/p stent), AFib (post ablation on xarelto), and anemia, who is presenting with complaints of LE edema, chest "tightness" and worsening SOB from baseline. PT states he took his albuterol with minimal relief. PT states the SOB is worse at night "I have to turn the fan on" and on exertion ( he can now only swim "half a lap at the pool" from his usual 20). Pt denies any recent URI symptoms. PT denies any recent fevers/chills, headache, vision changes, syncope, chest pain, palpitations, nausea/vomiting, abdominal pain, urinary symptoms, or diarrhea/constipation. in ER got iv lasix admitted to telemetry got iv lasix -symptoms improved now on oral torsemide BP started on hydralazine dose increased to TID patient also became hypogylcemic adn was given dextrose and bgm watched then improved- seen by endocrine and insulin regimen changed Condition: Stable - Instructions Disposition: HOME - Home Medications Comprehensive Discharge Medication List: Ambulatory Orders Simvastatin [Zocor -] 20 mg PO DAILY #0 tab 07/11/17 Metoprolol Succinate [Toprol XL -] 100 mg PO DAILY 10/26/17 Rivaroxaban [Xarelto -] 20 mg PO DAILY 10/26/17 Tamsulosin HCl [Flomax -] 0.4 mg PO DAILY 10/26/17 Furosemide [Lasix] 40 mg PO DAILY #30 tab 08/30/18 Acetaminophen [Tylenol .Regular Strength -] 650 mg PO Q6H PRN tablet 10/02/18 Aspirin Coated [Ecotrin -] 81 mg PO DAILY tablet.ec 10/02/18 Glimepiride [Amaryl -] 4 mg PO DAILY@0700 tablet 10/02/18 Isosorbide Mononitrate [Imdur -] 30 mg PO DAILY #30 tab.sr.24h 10/02/18 Sacubitril/Valsartan [Entresto 49 mg-51 mg Tablet] 1 tab PO BID tablet Insulin (Novolog 70/30) [Novolog Mix 70/30 Vial] 0 ml SQ ASDIR 07/10/19 Insulin Glargine,Hum.rec.anlog [Lantus Solostar PEN (NF)] 0 units SQ ASDIR 07/10 Insulin Lispro Protamin/Lispro [Humalog Mix 75-25 Kwikpen] 0 unit SQ [facility]IR 07/10 Nystatin/Triamcin [Nystatin-Triamcinolone Cream] 15 gm TP ASDIR 07/10/19 Oxybutynin Chloride [Oxybutynin Chloride ER] 10 mg PO DAILY 07/10/19 Tramadol HCl 50 mg PO BID 07/10/19
[2019-07-17 12:51] VITALS: BMI 25.6
[2019-07-17] MEDS ORDERED: ALBUTEROL SO4 0.042% IH SOL 1.25 MG/3 ML VIAL.NEB NEB PRN (13:37)
--- NOTE | 2019-07-17 13:37 | PN ---
Progress Note (short form) - Note Progress Note: PULMONARY c/o chest tightness. No cough or wheezing. Vital Signs Period Temp Pulse Resp BP Sys/Cohen Pulse Ox Last 24 Hr 98.0 F-98.8 F 70-74 16-20 146-176/81-85 95-98 Gen: NAD at rest Heart: RRR Lung: decreased breath sounds at the bases Abd: soft, nontender Ext: + edema CBC, BMP 07/15/19 06:30 Active Medications Amlodipine Besylate (Norvasc -) 5 mg PO DAILY [facility] Last Admin: 07/17/19 09:20 Dose: 5 mg Aspirin (Asa -) 81 mg PO DAILY [facility] Last Admin: 07/17/19 09:20 Dose: 81 mg Atorvastatin Calcium (Lipitor -) 40 mg PO HS [facility] Last Admin: 07/16/19 21:30 Dose: 40 mg Hydralazine HCl (Apresoline -) 50 mg PO TID [facility] Insulin Aspart (Novolog Vial Sliding Scale -) 1 vial SQ ACHS [facility]; Protocol Last Admin: 07/17/19 10:59 Dose: 6 units Insulin Detemir (Levemir Vial) 20 units SQ AM [facility] Last Admin: 07/17/19 06:53 Dose: 20 units Isosorbide Mononitrate (Imdur -) 60 mg PO DAILY [facility] Last Admin: 07/17/19 09:20 Dose: 60 mg Lactic Acid (Lac-Hydrin 12) 1 applic TP BID PRN PRN Reason: DRY SKIN Magnesium Oxide (Mag-Ox -) 400 mg PO BID [facility] Last Admin: 07/17/19 09:21 Dose: 400 mg Metoprolol Succinate (Toprol Xl -) 100 mg PO DAILY [facility] Last Admin: 07/17/19 09:21 Dose: 100 mg Potassium Chloride (K-Dur -) 10 meq PO DAILY [facility] Last Admin: 07/17/19 09:20 Dose: 10 meq Rivaroxaban (Xarelto) 20 mg PO DAILY@1800 [facility] Last Admin: 07/16/19 17:00 Dose: 20 mg Silver Sulfadiazine (Silvadene -) 1 applic TP BID [facility] Last Admin: 07/17/19 11:01 Dose: Not Given Tamsulosin HCl (Flomax -) 0.4 mg PO DAILY@0830 [facility] Last Admin: 07/17/19 08:35 Dose: 0.4 mg Torsemide (Demadex -) 40 mg PO DAILY [facility] Last Admin: 07/17/19 09:21 Dose: 40 mg Tramadol HCl (Ultram -) 50 mg PO BID PRN PRN Reason: PAIN- Last Admin: 07/17/19 08:35 Dose: 50 mg A/P Acute on Chronic Diastolic Heart Failure COPD CAD Pulmonary HTN Atrial Fibrillation HTN DM Hyperlipidemia Anemia - continue torsemide - inhaled bronchodilators standing and PRN - O2 to keep spo2 >90% - rate controlled - continue anticoagulation
[2019-07-17 13:42] LABS: ALBUMIN 3.2 g/dl (3.4-5.0); BILIRUBIN,TOTAL 3.1 mg/dL (0.2-1); BLOOD UREA NITROGEN 33.6 mg/dL (7-18); CALCIUM 9.3 mg/dL (8.5-10.1); CREATININE 1.4 mg/dL (0.55-1.3); MAGNESIUM 1.8 mg/dL (1.8-2.4); POTASSIUM 3.6 mmol/L (3.5-5.1); TOT PROT 6.8 g/dl (6.4-8.2)
[2019-07-17] MEDS ORDERED: ALBUTEROL SO4 2.5/IPRATROPIUM 0.5 INH SOL 3 ML VIAL.NEB. NEB SCH (16:00)
--- NOTE | 2019-07-17 16:05 | PN ---
Progress Note, Physician History of Present Illness: Pt seen and examined at bedside. He is awake and alert. He denies shortness of breath. - Current Medication List Current Medications: Active Medications Albuterol Sulfate (Ventolin 0.042trength) -) 1 amp NEB Q4H PRN PRN Reason: SHORT OF BREATH/WHEEZING Albuterol/Ipratropium (Duoneb -) 1 amp NEB RQID [facility] Amlodipine Besylate (Norvasc -) 5 mg PO DAILY [facility] Last Admin: 07/17/19 09:20 Dose: 5 mg Aspirin (Asa -) 81 mg PO DAILY [facility] Last Admin: 07/17/19 09:20 Dose: 81 mg Atorvastatin Calcium (Lipitor -) 40 mg PO HS [facility] Last Admin: 07/16/19 21:30 Dose: 40 mg Hydralazine HCl (Apresoline -) 50 mg PO TID [facility] Last Admin: 07/17/19 14:20 Dose: 50 mg Insulin Aspart (Novolog Vial Sliding Scale -) 1 vial SQ ACHS [facility]; Protocol Last Admin: 07/17/19 10:59 Dose: 6 units Insulin Detemir (Levemir Vial) 20 units SQ AM [facility] Last Admin: 07/17/19 06:53 Dose: 20 units Isosorbide Mononitrate (Imdur -) 60 mg PO DAILY [facility] Last Admin: 07/17/19 09:20 Dose: 60 mg Lactic Acid (Lac-Hydrin 12) 1 applic TP BID PRN PRN Reason: DRY SKIN Last Admin: 07/17/19 15:34 Dose: 1 applic Magnesium Oxide (Mag-Ox -) 400 mg PO BID [facility] Last Admin: 07/17/19 09:21 Dose: 400 mg Metoprolol Succinate (Toprol Xl -) 100 mg PO DAILY [facility] Last Admin: 07/17/19 09:21 Dose: 100 mg Potassium Chloride (K-Dur -) 10 meq PO DAILY [facility] Last Admin: 07/17/19 09:20 Dose: 10 meq Rivaroxaban (Xarelto) 20 mg PO DAILY@1800 [facility] Last Admin: 07/16/19 17:00 Dose: 20 mg Silver Sulfadiazine (Silvadene -) 1 applic TP BID [facility] Last Admin: 07/17/19 11:01 Dose: Not Given Tamsulosin HCl (Flomax -) 0.4 mg PO DAILY@0830 [facility] Last Admin: 07/17/19 08:35 Dose: 0.4 mg Torsemide (Demadex -) 40 mg PO DAILY [facility] Last Admin: 07/17/19 09:21 Dose: 40 mg Tramadol HCl (Ultram -) 50 mg PO BID PRN PRN Reason: PAIN- Last Admin: 07/17/19 08:35 Dose: 50 mg - Objective Vital Signs: Vital Signs Temperature 98.9 F 07/17/19 13:46 Pulse Rate 79 07/17/19 13:46 Respiratory Rate 16 07/17/19 13:46 Blood Pressure 140/75 07/17/19 13:46 O2 Sat by Pulse Oximetry (%) 95 07/17/19 09:00 Constitutional: Yes: Calm Eyes: Yes: Conjunctiva Clear HENT: Yes: Atraumatic Neck: Yes: Supple Cardiovascular: Yes: S1, S2 Respiratory: Yes: CTA Bilaterally Gastrointestinal: Yes: Soft Genitourinary: Yes: WNL Musculoskeletal: Yes: WNL Edema: Yes Edema: LLE: 1+, RLE: 1+ Neurological: Yes: Oriented Psychiatric: Yes: Oriented Labs: CBC, BMP 07/15/19 06:30 07/17/19 12:55 INR, PTT INR 1.19 (0.83-1.09) H 07/11/19 06:36 Problem List - Problems (1) Proteinuria Code(s): R80.9 - PROTEINURIA, UNSPECIFIED (2) CAD S/P percutaneous coronary angioplasty Code(s): I25.10 - ATHSCL HEART DISEASE OF [place] CORONARY ARTERY W/O ANG PCTRS; Z98.61 - CORONARY ANGIOPLASTY STATUS (3) CHF (congestive heart failure) Code(s): I50.9 - HEART FAILURE, UNSPECIFIED Qualifiers: Heart failure type: unspecified Heart failure chronicity: unspecified Qualified Code(s): I50.9 - Heart failure, unspecified (4) HLD (hyperlipidemia) Code(s): E78.5 - HYPERLIPIDEMIA, UNSPECIFIED (5) Pulmonary HTN Code(s): I27.20 - PULMONARY HYPERTENSION, UNSPECIFIED Assessment/Plan Current Medications Generic Name Dose Route Start Last Admin Trade Name Freq PRN Reason Stop Dose Admin Albuterol Sulfate 1 amp 07/17/19 13:37 Ventolin 0.042trength) - NEB Q4H PRN SHORT OF BREATH/WHEEZING Albuterol/Ipratropium 1 amp 07/17/19 16:00 Duoneb - NEB RQID [facility] Amlodipine Besylate 5 mg 07/16/19 10:00 07/17/19 09:20 Norvasc - PO 5 mg DAILY [facility] Administration Aspirin 81 mg 07/11/19 10:00 07/17/19 09:20 Asa - PO 81 mg DAILY [facility] Administration Atorvastatin Calcium 40 mg 07/10/19 22:00 07/16/19 21:30 Lipitor - PO 40 mg HS [facility] Administration Hydralazine HCl 50 mg 07/17/19 14:00 07/17/19 14:20 Apresoline - PO 50 mg TID [facility] Administration Insulin Aspart 1 vial 07/12/19 19:39 07/17/19 10:59 Novolog Vial Sliding Scale - SQ 6 units ACHS [facility] Administration Protocol Insulin Detemir 20 units 07/16/19 00:33 07/17/19 06:53 Levemir Vial SQ 20 units AM [facility] Administration Isosorbide Mononitrate 60 mg 07/15/19 09:10 07/17/19 09:20 Imdur - PO 60 mg DAILY [facility] Administration Lactic Acid 1 applic 07/17/19 12:31 07/17/19 15:34 Lac-Hydrin 12 TP 1 applic BID PRN Administration DRY SKIN Magnesium Oxide 400 mg 07/15/19 10:00 07/17/19 09:21 Mag-Ox - PO 400 mg BID [facility] Administration Metoprolol Succinate 100 mg 07/11/19 10:00 07/17/19 09:21 Toprol Xl - PO 100 mg DAILY [facility] Administration Potassium Chloride 10 meq 07/17/19 10:00 07/17/19 09:20 K-Dur - PO 10 meq DAILY [facility] Administration Rivaroxaban 20 mg 07/10/19 18:00 07/16/19 17:00 Xarelto PO 20 mg DAILY@1800 [place] Administration Silver Sulfadiazine 1 applic 07/15/19 10:00 07/17/19 11:01 Silvadene - TP Not Given BID [place] Tamsulosin HCl 0.4 mg 07/11/19 08:30 07/17/19 08:35 Flomax - PO 0.4 mg DAILY@0830 [place] Administration Torsemide 40 mg 07/15/19 10:00 07/17/19 09:21 Demadex - PO 40 mg DAILY [place] Administration Tramadol HCl 50 mg 07/15/19 10:30 07/17/19 08:35 Ultram - PO 50 mg BID PRN Administration PAIN- Impression 1. ckd 2. proteinuria - nephrotic 3. chf 4. fluid overload 5. a-fib 6. htn 7. copd 8. dm Plan - monitor bp - titrate dose of hydralazine - outpt proteinuria workup - low sodium diet - discussed with medical team
[2019-07-17] MEDS: RIVAROXABAN 20 MG TABLET PO SCH (17:01)
[2019-07-17] MEDS: ATORVASTATIN CA 40 MG TABLET (FP) PO SCH (21:05)
[2019-07-18] MEDS: INSULIN (LEVEMIR) 100 UNITS/ML UNITS SQ SCH (06:17)
[2019-07-18] MEDS: INSULIN SLIDING SCALE (NOVOLOG) 1 VIAL SQ SCH ×2 (06:17→11:37)
[2019-07-18] MEDS: hydrALAZINE HCL 50 MG TABLET (FP) PO SCH ×2 (06:17→13:18)
[2019-07-18] MEDS: ASPIRIN 81 MG CHEWABLE TABLETS PO SCH (09:17)
[2019-07-18] MEDS: TAMSULOSIN HCL 0.4 MG CAP PO SCH (09:17)
[2019-07-18] MEDS: MAGNESIUM OXIDE 400 MG TABLET (FP) PO SCH (09:17)
[2019-07-18] MEDS: amLODIPine BESYLATE 5 MG TABLET (FP) PO SCH (09:17)
[2019-07-18] MEDS: ISOSORBIDE MONONITRATE 60 MG TAB.SR.24H (FP) PO SCH (09:17)
[2019-07-18] MEDS: POTASSIUM CHLORIDE TABS 10 MEQ TABLET.ER (FP) PO SCH (09:17)
[2019-07-18] MEDS: TORSEMIDE 20 MG TABLET (FP) PO SCH (09:17)
[2019-07-18] MEDS: traMADol HCL 50 MG TABLET PO PRN (09:21)
[2019-07-18] MEDS: SILVER SULFADIAZINE 1% TOP CREAM 50 GM JAR TP SCH (09:51)
--- NOTE | 2019-07-18 11:59 | PN ---
Progress Note, Physician Chief Complaint: patient seen and examined awake alert feeling better no shortness of breath BP is better - Current Medication List Current Medications: Active Medications Albuterol Sulfate (Ventolin 0.042trength) -) 1 amp NEB Q4H PRN PRN Reason: SHORT OF BREATH/WHEEZING Albuterol/Ipratropium (Duoneb -) 1 amp NEB RQID [facility] Last Admin: 07/17/19 19:35 Dose: 1 amp Amlodipine Besylate (Norvasc -) 5 mg PO DAILY [facility] Last Admin: 07/18/19 09:17 Dose: 5 mg Aspirin (Asa -) 81 mg PO DAILY [facility] Last Admin: 07/18/19 09:17 Dose: 81 mg Atorvastatin Calcium (Lipitor -) 40 mg PO HS [facility] Last Admin: 07/17/19 21:05 Dose: 40 mg Hydralazine HCl (Apresoline -) 50 mg PO TID [facility] Last Admin: 07/18/19 06:17 Dose: 50 mg Insulin Aspart (Novolog Vial Sliding Scale -) 1 vial SQ [facility]; Protocol Last Admin: 07/18/19 11:37 Dose: Not Given Insulin Detemir (Levemir Vial) 20 units SQ AM [facility] Last Admin: 07/18/19 06:17 Dose: 20 units Isosorbide Mononitrate (Imdur -) 60 mg PO DAILY [facility] Last Admin: 07/18/19 09:17 Dose: 60 mg Lactic Acid (Lac-Hydrin 12) 1 applic TP BID PRN PRN Reason: DRY SKIN Last Admin: 07/17/19 15:34 Dose: 1 applic Magnesium Oxide (Mag-Ox -) 400 mg PO BID [facility] Last Admin: 07/18/19 09:17 Dose: 400 mg Metoprolol Succinate (Toprol Xl -) 100 mg PO DAILY [facility] Last Admin: 07/18/19 09:17 Dose: 100 mg Potassium Chloride (K-Dur -) 10 meq PO DAILY [facility] Last Admin: 07/18/19 09:17 Dose: 10 meq Rivaroxaban (Xarelto) 20 mg PO DAILY@1800 [facility] Last Admin: 07/17/19 17:01 Dose: 20 mg Silver Sulfadiazine (Silvadene -) 1 applic TP BID [facility] Last Admin: 07/18/19 09:51 Dose: Not Given Tamsulosin HCl (Flomax -) 0.4 mg PO DAILY@0830 [facility] Last Admin: 07/18/19 09:17 Dose: 0.4 mg Torsemide (Demadex -) 40 mg PO DAILY [facility] Last Admin: 07/18/19 09:17 Dose: 40 mg - Objective Vital Signs: Vital Signs Temperature 98.9 F 07/18/19 09:16 Pulse Rate 71 07/18/19 09:16 Respiratory Rate 20 07/18/19 09:16 Blood Pressure 159/77 07/18/19 09:16 O2 Sat by Pulse Oximetry (%) 97 07/18/19 09:00 Constitutional: Yes: Calm Cardiovascular: Yes: Regular Rate and Rhythm, S1, S2 Respiratory: Yes: CTA Bilaterally Gastrointestinal: Yes: Normal Bowel Sounds, Soft Edema: Yes Neurological: Yes: Alert, Oriented Labs: CBC, BMP 07/15/19 06:30 07/17/19 12:55 INR, PTT INR 1.19 (0.83-1.09) H 07/11/19 06:36 Problem List - Problems (1) HTN (hypertension) Assessment/Plan: hydralazine imdur toprol Code(s): I10 - ESSENTIAL (PRIMARY) HYPERTENSION (2) Acute on chronic systolic heart failure Assessment/Plan: iv lasix changed to torsemide weights monitor lytes echo noted cardiology on board Code(s): I50.23 - ACUTE ON CHRONIC SYSTOLIC (CONGESTIVE) HEART FAILURE (3) Atrial fibrillation Assessment/Plan: toprol xarelto Code(s): I48.91 - UNSPECIFIED ATRIAL FIBRILLATION (4) Diabetes mellitus Assessment/Plan: hypoglycemia resolved endocrine consult noted on levemir 15 units Code(s): E11.9 - TYPE 2 DIABETES MELLITUS WITHOUT COMPLICATIONS Qualifiers: Diabetes mellitus type: type 2 (5) HLD (hyperlipidemia) Assessment/Plan: statin Code(s): E78.5 - HYPERLIPIDEMIA, UNSPECIFIED (6) Proteinuria Code(s): R80.9 - PROTEINURIA, UNSPECIFIED (7) Dyspnea Assessment/Plan: stress test done and on torsemide Code(s): R06.00 - DYSPNEA, UNSPECIFIED Qualifiers: Dyspnea type: orthopnea Qualified Code(s): R06.01 - Orthopnea
[2019-07-18 13:36] VITALS: BP 162/89; PULSE 75; TEMP 98.4
== END 2019-07-18 14:09 | disposition home or self-care (01) | DRG 291 ==
LOC: JER 12:42 → JERBED 15:50 → J4S 20:08
PROVIDERS: ADMIT Family Medicine; ATTEND Family Medicine
DX: I13.0 Hypertensive heart and chronic kidney disease with heart failure and stage 1 through stage 4 chronic kidney disease, or unspecified chronic kidney disease (principal); I50.33 Acute on chronic diastolic (congestive) heart failure; I47.1 Supraventricular tachycardia; I73.9 Peripheral vascular disease, unspecified; E78.5 Hyperlipidemia, unspecified; I25.10 Atherosclerotic heart disease of native coronary artery without angina pectoris; Z98.61 Coronary angioplasty status; I27.20 Pulmonary hypertension, unspecified; E87.70 Fluid overload, unspecified; J44.9 Chronic obstructive pulmonary disease, unspecified; D64.9 Anemia, unspecified; E11.21 Type 2 diabetes mellitus with diabetic nephropathy; I48.0 Paroxysmal atrial fibrillation; E80.6 Other disorders of bilirubin metabolism; R80.9 Proteinuria, unspecified; N18.9 Chronic kidney disease, unspecified; E11.649 Type 2 diabetes mellitus with hypoglycemia without coma; E11.22 Type 2 diabetes mellitus with diabetic chronic kidney disease; E11.40 Type 2 diabetes mellitus with diabetic neuropathy, unspecified; E11.51 Type 2 diabetes mellitus with diabetic peripheral angiopathy without gangrene
CPT/HCPCS: 36415; 71045-TC-FY; 76775-TC; 78452-TC; 80048; 80053; 80061; 81003; 82550; 82553; 82570; 82962; 83036; 83540; 83550; 83721; 83735; 83880; 84100; 84156; 84443; 84484; 85025; 85027; 85610; 85730; 87077; 87081; 93005; 93010; 93017; 93306-TC; 93970-TC; 94640; 99283-25; A9502; J1756; J2785

== ENCOUNTER 2021-05-14 16:53 | Inpatient (IN) | payer OTHER ==
[2021-05-14 17:18] LABS: BASO % 0.3 % (0-2.0); EOS % 2.6 % (0-4.5); HEMATOCRIT 39.7 % (35.4-49); HEMOGLOBIN 12.9 GM/dL (11.7-16.9); MCH 25.9 pg (25.7-33.7); MCHC 32.6 g/dl (32.0-35.9); MEAN CELL VOLUME 79.2 fl (80-96); MEAN PLT VOLUME 9.3 fl (7.5-11.1); MONO % 8.5 % (3.8-10.2); NEUT % 64.6 % (42.8-82.8); PLATELET COUNT 241 10^3/uL (134-434); RDW 16.5 % (11.9-15.9); WHITE BLOOD COUNT 7.1 K/mm3 (4.0-10.0)
[2021-05-14] MEDS: SODIUM CHLORIDE 1,000 ML IV SCH (17:27)
[2021-05-14 17:31] LABS: INR 1.12 (0.83-1.09); PROTHROMBIN TIME (PATIENT) 13.7 SEC (9.7-13.0)
[2021-05-14 17:34] LABS: ACTIVATED PTT 32.8 SECONDS (25.2-36.5)
[2021-05-14 17:44] LABS: CALCIUM 8.7 mg/dL (8.5-10.1)
[2021-05-14 17:45] LABS: ALBUMIN 3.1 g/dl (3.4-5.0); BLOOD UREA NITROGEN 32.2 mg/dL (7-18)
[2021-05-14 17:49] LABS: BILIRUBIN,TOTAL 2.2 mg/dL (0.2-1); TOT PROT 6.4 g/dl (6.4-8.2)
[2021-05-14] MEDS ORDERED: ASPIRIN 81 MG CHEWABLE TABLETS PO ONE (21:40)
[2021-05-14] MEDS ORDERED: ASPIRIN 81 MG CHEWABLE TABLETS ONE (21:50)
[2021-05-14 22:55] LABS: MAGNESIUM 1.9 mg/dL (1.8-2.4)
[2021-05-14 22:55] LABS: MAGNESIUM 1.9 mg/dL (1.8-2.4)
[2021-05-14] MEDS ORDERED: SODIUM CHLORIDE 500 ML IV STA (23:39)
[2021-05-14] MEDS ORDERED: traMADol HCL 50 MG TABLET PO PRN (23:44)
[2021-05-14] MEDS ORDERED: ALBUTEROL SO4 0.083% IH SOL 2.5 MG/3 ML VIAL.NEB. NEB PRN (23:44)
[2021-05-14] MEDS ORDERED: ALBUTEROL SO4 HFA INHALER IH PRN (23:44)
[2021-05-14] MEDS ORDERED: hydrALAZINE HCL 50 MG TABLET (FP) PO SCH (23:45)
[2021-05-14] MEDS ORDERED: VALSARTAN 80 MG TABLET PO SCH (23:45)
[2021-05-15] MEDS ORDERED: hydrALAZINE HCL 50 MG TABLET (FP) PO SCH (00:18)
[2021-05-15] MEDS ORDERED: hydrALAZINE HCL 20 MG/ML VIAL IVPUSH ONE (00:28)
[2021-05-15 04:15] LABS: BASO % 0.6 % (0-2.0); EOS % 3.7 % (0-4.5); HEMATOCRIT 35.5 % (35.4-49); HEMOGLOBIN 11.7 GM/dL (11.7-16.9); LYMPH % 27.2 % (8-40); MCH 25.8 pg (25.7-33.7); MEAN CELL VOLUME 78.2 fl (80-96); MEAN PLT VOLUME 8.7 fl (7.5-11.1); MONO % 8.2 % (3.8-10.2); NEUT % 60.3 % (42.8-82.8); PLATELET COUNT 209 10^3/uL (134-434); RBC 4.54 M/mm3 (4.00-5.60); RDW 16.5 % (11.9-15.9); WHITE BLOOD COUNT 5.9 K/mm3 (4.0-10.0)
[2021-05-15 04:37] LABS: CALCIUM 8.2 mg/dL (8.5-10.1)
[2021-05-15 04:38] LABS: BLOOD UREA NITROGEN 28.9 mg/dL (7-18)
[2021-05-15 04:41] LABS: CREATININE 1.8 mg/dL (0.55-1.3)
[2021-05-15] MEDS: KCL 10 MEQ IVPB 10 MEQ/100 ML INFUS.BAG IVPB SCH ×2 (06:18→08:12)
[2021-05-15] MEDS: INSULIN SLIDING SCALE (NOVOLOG) 1 VIAL SQ SCH ×4 (06:18→20:59)
[2021-05-15] MEDS ORDERED: DEXTROSE 50%-WATER - 25 GM/50 ML VIAL IVPUSH ONE (06:44)
[2021-05-15] MEDS ORDERED: DEXTROSE 50%-WATER 25 GM/50 ML DISP.SYRIN ONE (06:57)
[2021-05-15] MEDS: TAMSULOSIN HCL 0.4 MG CAP PO SCH (08:12)
[2021-05-15] MEDS: SOLIFENACIN SUCCINATE 5 MG TAB PO SCH (09:36)
[2021-05-15] MEDS: ASPIRIN 81 MG CHEWABLE TABLETS PO SCH (09:36)
[2021-05-15] MEDS: FUROSEMIDE 40 MG TABLET (FP) PO SCH (09:36)
[2021-05-15] MEDS: POTASSIUM CHLORIDE TABS 20 MEQ TABLET.ER (FP) PO SCH (09:36)
[2021-05-15] MEDS ORDERED: amLODIPine BESYLATE 5 MG TABLET (FP) PO SCH (13:00)
[2021-05-15 13:40] LABS: N-TERMINAL BNP 2358.4 pg/ml (5-125)
[2021-05-15] MEDS: RIVAROXABAN 20 MG TABLET PO SCH (17:08)
[2021-05-15] MEDS: SODIUM CHLORIDE 1,000 ML IV SCH (17:11)
[2021-05-15] MEDS ORDERED: amLODIPine BESYLATE 5 MG TABLET (FP) PO ONE (19:43)
[2021-05-15] MEDS: ATORVASTATIN CA 80 MG TABLET (FP) PO SCH (20:59)
[2021-05-15] MEDS ORDERED: ATORVASTATIN CA 10 MG TABLET (FP) PO SCH (22:00)
[2021-05-15] MEDS: INSULIN (LEVEMIR) 100 UNITS/ML UNITS SQ SCH (22:03)
[2021-05-16] MEDS: INSULIN SLIDING SCALE (NOVOLOG) 1 VIAL SQ SCH ×4 (06:37→22:15)
[2021-05-16] MEDS: INSULIN (LEVEMIR) 100 UNITS/ML UNITS SQ SCH ×2 (06:49→22:16)
[2021-05-16 08:16] LABS: BASO % 0.8 % (0-2.0); EOS % 2.8 % (0-4.5); HEMATOCRIT 36.6 % (35.4-49); HEMOGLOBIN 12.1 GM/dL (11.7-16.9); LYMPH % 19.5 % (8-40); MCH 26.3 pg (25.7-33.7); MCHC 33.2 g/dl (32.0-35.9); MEAN CELL VOLUME 79.3 fl (80-96); MEAN PLT VOLUME 9.7 fl (7.5-11.1); NEUT % 67.9 % (42.8-82.8); PLATELET COUNT 228 10^3/uL (134-434); RBC 4.62 M/mm3 (4.00-5.60); RDW 16.8 % (11.9-15.9); WHITE BLOOD COUNT 7.4 K/mm3 (4.0-10.0)
[2021-05-16 08:42] LABS: ALBUMIN 2.6 g/dl (3.4-5.0); BLOOD UREA NITROGEN 26.7 mg/dL (7-18); CALCIUM 8.3 mg/dL (8.5-10.1)
[2021-05-16 08:45] LABS: CREATININE 1.7 mg/dL (0.55-1.3)
[2021-05-16 08:47] LABS: BILIRUBIN,TOTAL 1.8 mg/dL (0.2-1); TOT PROT 5.7 g/dl (6.4-8.2)
[2021-05-16] MEDS: amLODIPine BESYLATE 5 MG TABLET (FP) PO SCH (09:09)
[2021-05-16] MEDS: ASPIRIN 81 MG CHEWABLE TABLETS PO SCH (09:09)
[2021-05-16] MEDS: POTASSIUM CHLORIDE TABS 20 MEQ TABLET.ER (FP) PO SCH (09:10)
[2021-05-16] MEDS: SOLIFENACIN SUCCINATE 5 MG TAB PO SCH (09:10)
[2021-05-16] MEDS: TAMSULOSIN HCL 0.4 MG CAP PO SCH (09:10)
[2021-05-16] MEDS: FUROSEMIDE 40 MG TABLET (FP) PO SCH (09:10)
[2021-05-16] MEDS ORDERED: LOSARTAN POTASSIUM 50 MG TABLET PO SCH (13:30)
[2021-05-16] MEDS: SODIUM CHLORIDE 1,000 ML IV SCH (17:23)
[2021-05-16] MEDS: RIVAROXABAN 20 MG TABLET PO SCH (17:24)
[2021-05-16] MEDS ORDERED: hydrALAZINE HCL 20 MG/ML VIAL IVPUSH PRN (21:19)
[2021-05-16] MEDS: ATORVASTATIN CA 80 MG TABLET (FP) PO SCH (22:16)
[2021-05-17] MEDS: INSULIN (LEVEMIR) 100 UNITS/ML UNITS SQ SCH ×2 (06:30→22:00)
[2021-05-17] MEDS: INSULIN SLIDING SCALE (NOVOLOG) 1 VIAL SQ SCH ×4 (06:31→22:00)
[2021-05-17] MEDS ORDERED: PT OWN MED DRAWER 7, Y5N ONE (09:02)
[2021-05-17] MEDS: LOSARTAN POTASSIUM 50 MG TABLET PO SCH (09:39)
[2021-05-17] MEDS: FUROSEMIDE 40 MG TABLET (FP) PO SCH (09:39)
[2021-05-17] MEDS: SOLIFENACIN SUCCINATE 5 MG TAB PO SCH (09:39)
[2021-05-17] MEDS: TAMSULOSIN HCL 0.4 MG CAP PO SCH (09:40)
[2021-05-17] MEDS: POTASSIUM CHLORIDE TABS 20 MEQ TABLET.ER (FP) PO SCH (09:40)
[2021-05-17] MEDS: amLODIPine BESYLATE 5 MG TABLET (FP) PO SCH (09:40)
[2021-05-17] MEDS: ASPIRIN 81 MG CHEWABLE TABLETS PO SCH (09:40)
[2021-05-17] MEDS: RIVAROXABAN 20 MG TABLET PO SCH (17:55)
[2021-05-17] MEDS: ATORVASTATIN CA 80 MG TABLET (FP) PO SCH (22:00)
[2021-05-17] MEDS ORDERED: hydrALAZINE HCL 50 MG TABLET (FP) PO SCH (23:30)
[2021-05-18] MEDS ORDERED: MELATONIN 1 MG TABLET PO ONE (02:57)
[2021-05-18] MEDS: INSULIN (LEVEMIR) 100 UNITS/ML UNITS SQ SCH ×2 (06:25→21:39)
[2021-05-18] MEDS: INSULIN SLIDING SCALE (NOVOLOG) 1 VIAL SQ SCH ×4 (06:25→21:39)
[2021-05-18 07:20] LABS: BASO % 1.2 % (0-2.0); EOS % 2.7 % (0-4.5); HEMATOCRIT 35.3 % (35.4-49); HEMOGLOBIN 11.6 GM/dL (11.7-16.9); LYMPH % 17.8 % (8-40); MCH 25.8 pg (25.7-33.7); MCHC 32.8 g/dl (32.0-35.9); MEAN CELL VOLUME 78.6 fl (80-96); MEAN PLT VOLUME 9.6 fl (7.5-11.1); MONO % 7.8 % (3.8-10.2); NEUT % 70.5 % (42.8-82.8); PLATELET COUNT 228 10^3/uL (134-434); RBC 4.49 M/mm3 (4.00-5.60); RDW 16.7 % (11.9-15.9); WHITE BLOOD COUNT 7.5 K/mm3 (4.0-10.0)
[2021-05-18 07:38] LABS: CALCIUM 8.5 mg/dL (8.5-10.1)
[2021-05-18 07:39] LABS: BLOOD UREA NITROGEN 28.8 mg/dL (7-18); MAGNESIUM 1.7 mg/dL (1.8-2.4)
[2021-05-18 07:42] LABS: CREATININE 1.6 mg/dL (0.55-1.3)
[2021-05-18 07:43] LABS: PHOSPHOROUS 3.8 mg/dL (2.5-4.9)
[2021-05-18] MEDS: TAMSULOSIN HCL 0.4 MG CAP PO SCH (08:36)
[2021-05-18] MEDS: hydrALAZINE HCL 50 MG TABLET (FP) PO SCH ×2 (10:11→21:35)
[2021-05-18] MEDS: FUROSEMIDE 40 MG TABLET (FP) PO SCH (10:12)
[2021-05-18] MEDS: LOSARTAN POTASSIUM 50 MG TABLET PO SCH (10:12)
[2021-05-18] MEDS: SOLIFENACIN SUCCINATE 5 MG TAB PO SCH (10:12)
[2021-05-18] MEDS: amLODIPine BESYLATE 5 MG TABLET (FP) PO SCH (10:12)
[2021-05-18] MEDS: ASPIRIN 81 MG CHEWABLE TABLETS PO SCH (10:12)
[2021-05-18] MEDS: POTASSIUM CHLORIDE TABS 20 MEQ TABLET.ER (FP) PO SCH (10:14)
[2021-05-18] MEDS: RIVAROXABAN 20 MG TABLET PO SCH (17:45)
[2021-05-18] MEDS: ATORVASTATIN CA 80 MG TABLET (FP) PO SCH (21:35)
[2021-05-18] MEDS: MELATONIN 1 MG TABLET PO SCH (21:35)
[2021-05-19] MEDS: INSULIN SLIDING SCALE (NOVOLOG) 1 VIAL SQ SCH ×4 (06:36→21:27)
[2021-05-19] MEDS: INSULIN (LEVEMIR) 100 UNITS/ML UNITS SQ SCH ×2 (06:37→21:27)
[2021-05-19] MEDS ORDERED: MAGNESIUM SULF 50% (8.12 MEQ/2 ML-1 GM VIAL) IVPB ONE (07:02)
[2021-05-19] MEDS: TAMSULOSIN HCL 0.4 MG CAP PO SCH (08:25)
[2021-05-19] MEDS: ASPIRIN 81 MG CHEWABLE TABLETS PO SCH (09:47)
[2021-05-19] MEDS: POTASSIUM CHLORIDE TABS 20 MEQ TABLET.ER (FP) PO SCH (09:47)
[2021-05-19] MEDS: HYDROCHLOROTHIAZIDE 25 MG TABLET (FP) PO SCH (09:47)
[2021-05-19] MEDS: LOSARTAN POTASSIUM 50 MG TABLET PO SCH (09:47)
[2021-05-19] MEDS: hydrALAZINE HCL 50 MG TABLET (FP) PO SCH ×2 (09:47→21:26)
[2021-05-19] MEDS: SOLIFENACIN SUCCINATE 5 MG TAB PO SCH (09:48)
[2021-05-19] MEDS: amLODIPine BESYLATE 5 MG TABLET (FP) PO SCH (09:48)
[2021-05-19 12:28] VITALS: BMI 23.0
[2021-05-19] MEDS: GABAPENTIN 100 MG CAPSULE PO SCH ×2 (14:26→21:27)
[2021-05-19] MEDS: RIVAROXABAN 20 MG TABLET PO SCH (17:22)
[2021-05-19] MEDS: MELATONIN 1 MG TABLET PO SCH (21:26)
[2021-05-19] MEDS: ATORVASTATIN CA 80 MG TABLET (FP) PO SCH (21:27)
[2021-05-20] MEDS: GABAPENTIN 100 MG CAPSULE PO SCH ×3 (06:00→21:01)
[2021-05-20] MEDS: INSULIN (LEVEMIR) 100 UNITS/ML UNITS SQ SCH ×2 (06:34→21:01)
[2021-05-20] MEDS: INSULIN SLIDING SCALE (NOVOLOG) 1 VIAL SQ SCH ×4 (07:34→21:01)
[2021-05-20 08:45] LABS: HEMATOCRIT 35.1 % (35.4-49); HEMOGLOBIN 11.7 GM/dL (11.7-16.9); LYMPH % 14.5 % (8-40); MCHC 33.3 g/dl (32.0-35.9); MEAN PLT VOLUME 9.4 fl (7.5-11.1); MONO % 9.7 % (3.8-10.2); NEUT % 72.8 % (42.8-82.8); PLATELET COUNT 241 10^3/uL (134-434); RBC 4.51 M/mm3 (4.00-5.60); RDW 16.4 % (11.9-15.9); WHITE BLOOD COUNT 10.3 K/mm3 (4.0-10.0)
[2021-05-20] MEDS: TAMSULOSIN HCL 0.4 MG CAP PO SCH (09:09)
[2021-05-20 09:11] LABS: ALBUMIN 2.8 g/dl (3.4-5.0); CALCIUM 8.5 mg/dL (8.5-10.1)
[2021-05-20 09:12] LABS: BLOOD UREA NITROGEN 43.2 mg/dL (7-18); MAGNESIUM 1.8 mg/dL (1.8-2.4)
[2021-05-20 09:16] LABS: BILIRUBIN,TOTAL 2.7 mg/dL (0.2-1); TOT PROT 6.1 g/dl (6.4-8.2)
[2021-05-20] MEDS: hydrALAZINE HCL 50 MG TABLET (FP) PO SCH ×2 (10:32→21:00)
[2021-05-20] MEDS: ASPIRIN 81 MG CHEWABLE TABLETS PO SCH (10:32)
[2021-05-20] MEDS: SOLIFENACIN SUCCINATE 5 MG TAB PO SCH (10:33)
[2021-05-20] MEDS: POTASSIUM CHLORIDE TABS 20 MEQ TABLET.ER (FP) PO SCH (10:33)
[2021-05-20] MEDS: amLODIPine BESYLATE 5 MG TABLET (FP) PO SCH (10:33)
[2021-05-20] MEDS: LOSARTAN POTASSIUM 50 MG TABLET PO SCH (10:33)
[2021-05-20] MEDS ORDERED: PT OWN MED DRAWER 7, Y5N ONE (10:35)
[2021-05-20] MEDS: HYDROCHLOROTHIAZIDE 25 MG TABLET (FP) PO SCH (10:36)
[2021-05-20] MEDS ORDERED: REGADENOSON 0.4 MG/5 ML PRE-FILLED SYRINGE IVPUSH ONE ×2 (14:26→14:30)
[2021-05-20] MEDS: RIVAROXABAN 20 MG TABLET PO SCH (17:35)
[2021-05-20] MEDS: ATORVASTATIN CA 80 MG TABLET (FP) PO SCH (21:00)
[2021-05-20] MEDS: MELATONIN 1 MG TABLET PO SCH (21:00)
[2021-05-21] MEDS: GABAPENTIN 100 MG CAPSULE PO SCH ×3 (06:16→21:10)
[2021-05-21] MEDS: INSULIN SLIDING SCALE (NOVOLOG) 1 VIAL SQ SCH ×4 (06:17→21:14)
[2021-05-21] MEDS: INSULIN (LEVEMIR) 100 UNITS/ML UNITS SQ SCH ×2 (06:17→21:14)
[2021-05-21] MEDS: TAMSULOSIN HCL 0.4 MG CAP PO SCH (08:22)
[2021-05-21] MEDS: ASPIRIN 81 MG CHEWABLE TABLETS PO SCH (09:51)
[2021-05-21] MEDS: hydrALAZINE HCL 50 MG TABLET (FP) PO SCH ×2 (09:51→21:14)
[2021-05-21] MEDS: amLODIPine BESYLATE 5 MG TABLET (FP) PO SCH (09:53)
[2021-05-21] MEDS: LOSARTAN POTASSIUM 50 MG TABLET PO SCH (09:54)
[2021-05-21] MEDS: POTASSIUM CHLORIDE TABS 20 MEQ TABLET.ER (FP) PO SCH (09:54)
[2021-05-21] MEDS: SOLIFENACIN SUCCINATE 5 MG TAB PO SCH (09:54)
[2021-05-21] MEDS: RIVAROXABAN 20 MG TABLET PO SCH (17:55)
[2021-05-21] MEDS: MELATONIN 1 MG TABLET PO SCH (21:14)
[2021-05-21] MEDS: ATORVASTATIN CA 80 MG TABLET (FP) PO SCH (21:14)
[2021-05-22] MEDS: INSULIN (LEVEMIR) 100 UNITS/ML UNITS SQ SCH ×2 (06:02→21:12)
[2021-05-22] MEDS: GABAPENTIN 100 MG CAPSULE PO SCH ×3 (06:02→21:12)
[2021-05-22] MEDS: INSULIN SLIDING SCALE (NOVOLOG) 1 VIAL SQ SCH ×4 (06:02→21:12)
[2021-05-22 08:13] LABS: CALCIUM 7.8 mg/dL (8.5-10.1)
[2021-05-22 08:14] LABS: BLOOD UREA NITROGEN 51.4 mg/dL (7-18)
[2021-05-22 08:17] LABS: CREATININE 1.9 mg/dL (0.55-1.3)
[2021-05-22] MEDS: TAMSULOSIN HCL 0.4 MG CAP PO SCH (09:07)
[2021-05-22] MEDS: ASPIRIN 81 MG CHEWABLE TABLETS PO SCH (09:07)
[2021-05-22] MEDS: hydrALAZINE HCL 50 MG TABLET (FP) PO SCH ×2 (09:07→21:12)
[2021-05-22] MEDS: POTASSIUM CHLORIDE TABS 20 MEQ TABLET.ER (FP) PO SCH (09:08)
[2021-05-22] MEDS: amLODIPine BESYLATE 5 MG TABLET (FP) PO SCH (09:08)
[2021-05-22] MEDS: MELATONIN 1 MG TABLET PO SCH (21:11)
[2021-05-22] MEDS: ATORVASTATIN CA 80 MG TABLET (FP) PO SCH (21:12)
[2021-05-23] MEDS: INSULIN (LEVEMIR) 100 UNITS/ML UNITS SQ SCH ×2 (06:17→22:17)
[2021-05-23] MEDS: GABAPENTIN 100 MG CAPSULE PO SCH ×3 (06:17→22:17)
[2021-05-23] MEDS: INSULIN SLIDING SCALE (NOVOLOG) 1 VIAL SQ SCH ×4 (06:17→22:17)
[2021-05-23] MEDS ORDERED: PT OWN MED DRAWER 7, Y5N ONE (09:01)
[2021-05-23] MEDS: POTASSIUM CHLORIDE TABS 20 MEQ TABLET.ER (FP) PO SCH (09:12)
[2021-05-23] MEDS: TAMSULOSIN HCL 0.4 MG CAP PO SCH (09:12)
[2021-05-23] MEDS: ASPIRIN 81 MG CHEWABLE TABLETS PO SCH (09:12)
[2021-05-23] MEDS: amLODIPine BESYLATE 5 MG TABLET (FP) PO SCH (09:12)
[2021-05-23] MEDS: hydrALAZINE HCL 50 MG TABLET (FP) PO SCH ×2 (09:12→22:17)
[2021-05-23] MEDS ORDERED: HEPARIN NA (PORCINE) 5,000 UNITS/ML 1ML VIAL IVPUSH PRN ×2 (15:00)
[2021-05-23] MEDS: HEPARIN - 25,000 UNIT in SODIUM CHLORIDE 495 ML IV SCH (16:52)
[2021-05-23 17:32] LABS: BASO % 0.8 % (0-2.0); EOS % 2.6 % (0-4.5); HEMATOCRIT 34.6 % (35.4-49); HEMOGLOBIN 11.5 GM/dL (11.7-16.9); LYMPH % 17.7 % (8-40); MCH 26.3 pg (25.7-33.7); MCHC 33.2 g/dl (32.0-35.9); MEAN PLT VOLUME 9.9 fl (7.5-11.1); MONO % 10.9 % (3.8-10.2); PLATELET COUNT 241 10^3/uL (134-434); RBC 4.38 M/mm3 (4.00-5.60); RDW 16.8 % (11.9-15.9); WHITE BLOOD COUNT 8.7 K/mm3 (4.0-10.0)
[2021-05-23 17:39] LABS: INR 1.03 (0.83-1.09); PROTHROMBIN TIME (PATIENT) 12.5 SEC (9.7-13.0)
[2021-05-23 17:42] LABS: ACTIVATED PTT 35.2 SECONDS (25.2-36.5)
[2021-05-23] MEDS: MELATONIN 1 MG TABLET PO SCH (22:16)
[2021-05-23] MEDS: ATORVASTATIN CA 80 MG TABLET (FP) PO SCH (22:17)
[2021-05-24] MEDS: INSULIN SLIDING SCALE (NOVOLOG) 1 VIAL SQ SCH ×4 (06:21→21:27)
[2021-05-24] MEDS: INSULIN (LEVEMIR) 100 UNITS/ML UNITS SQ SCH ×2 (06:22→21:27)
[2021-05-24] MEDS: GABAPENTIN 100 MG CAPSULE PO SCH ×3 (06:26→21:27)
[2021-05-24 08:01] LABS: CALCIUM 7.3 mg/dL (8.5-10.1)
[2021-05-24 08:02] LABS: ALBUMIN 2.4 g/dl (3.4-5.0); BLOOD UREA NITROGEN 43.1 mg/dL (7-18)
[2021-05-24 08:06] LABS: BILIRUBIN,TOTAL 2.3 mg/dL (0.2-1); TOT PROT 5.3 g/dl (6.4-8.2)
[2021-05-24] MEDS ORDERED: SODIUM CHLORIDE 0.45% 1,000 ML IV SCH (09:30)
[2021-05-24] MEDS: amLODIPine BESYLATE 5 MG TABLET (FP) PO SCH (09:52)
[2021-05-24] MEDS: hydrALAZINE HCL 50 MG TABLET (FP) PO SCH ×2 (09:53→21:27)
[2021-05-24] MEDS: ASPIRIN 81 MG CHEWABLE TABLETS PO SCH (09:53)
[2021-05-24] MEDS: TAMSULOSIN HCL 0.4 MG CAP PO SCH (09:53)
[2021-05-24] MEDS: POTASSIUM CHLORIDE TABS 20 MEQ TABLET.ER (FP) PO SCH (09:53)
[2021-05-24] MEDS: HEPARIN - 25,000 UNIT in SODIUM CHLORIDE 495 ML IV SCH ×2 (18:24→20:38)
[2021-05-24 20:43] LABS: EPI CELLS 10 /uL (0-25.1); HYALINE CASTS 1 /uL (0-3.1); PH,URINE 5.5 (5.0-8.0); URINE APPEARANCE CLEAR; URINE BACTERIA 16 /uL (0-1359); URINE BILIRUBIN 1+ (NEGATIVE); URINE COLOR DK YELLOW; URINE GLUCOSE (UA) TRACE (NEGATIVE); URINE KETONE NEGATIVE (NEGATIVE); URINE LEUK ESTERASE NEGATIVE (NEGATIVE); URINE NITRITE NEGATIVE (NEGATIVE); URINE PROTEIN 4+ (NEGATIVE); URINE RBC 36 /uL (0-23.9); URINE WBC 10 /uL (0-25.8)
[2021-05-24] MEDS: MELATONIN 1 MG TABLET PO SCH (21:27)
[2021-05-24] MEDS: ATORVASTATIN CA 80 MG TABLET (FP) PO SCH (21:27)
[2021-05-25] MEDS: GABAPENTIN 100 MG CAPSULE PO SCH ×3 (05:46→22:49)
[2021-05-25] MEDS: INSULIN (LEVEMIR) 100 UNITS/ML UNITS SQ SCH ×2 (06:16→22:50)
[2021-05-25] MEDS: INSULIN SLIDING SCALE (NOVOLOG) 1 VIAL SQ SCH ×4 (06:16→22:49)
[2021-05-25 07:39] LABS: ALBUMIN 2.5 g/dl (3.4-5.0); CALCIUM 7.6 mg/dL (8.5-10.1)
[2021-05-25 07:40] LABS: BLOOD UREA NITROGEN 35.9 mg/dL (7-18)
[2021-05-25 07:43] LABS: CREATININE 1.8 mg/dL (0.55-1.3)
[2021-05-25 07:44] LABS: BILIRUBIN,TOTAL 2.7 mg/dL (0.2-1); TOT PROT 5.3 g/dl (6.4-8.2)
[2021-05-25] MEDS: TAMSULOSIN HCL 0.4 MG CAP PO SCH (09:07)
[2021-05-25] MEDS: ASPIRIN 81 MG CHEWABLE TABLETS PO SCH (09:08)
[2021-05-25] MEDS: amLODIPine BESYLATE 5 MG TABLET (FP) PO SCH (09:08)
[2021-05-25] MEDS: POTASSIUM CHLORIDE TABS 20 MEQ TABLET.ER (FP) PO SCH (09:08)
[2021-05-25] MEDS: hydrALAZINE HCL 50 MG TABLET (FP) PO SCH ×2 (09:08→22:48)
[2021-05-25] MEDS: HEPARIN - 25,000 UNIT in SODIUM CHLORIDE 495 ML IV SCH (15:00)
[2021-05-25] MEDS: ATORVASTATIN CA 80 MG TABLET (FP) PO SCH (22:48)
[2021-05-25] MEDS: MELATONIN 1 MG TABLET PO SCH (22:49)
[2021-05-26] MEDS: HEPARIN - 25,000 UNIT in SODIUM CHLORIDE 495 ML IV SCH (00:49)
[2021-05-26] MEDS: GABAPENTIN 100 MG CAPSULE PO SCH (06:20)
[2021-05-26] MEDS: INSULIN SLIDING SCALE (NOVOLOG) 1 VIAL SQ SCH ×2 (06:20→11:42)
[2021-05-26] MEDS: INSULIN (LEVEMIR) 100 UNITS/ML UNITS SQ SCH (06:20)
[2021-05-26 08:52] LABS: CALCIUM 8.2 mg/dL (8.5-10.1)
[2021-05-26 08:54] LABS: ALBUMIN 2.5 g/dl (3.4-5.0); BLOOD UREA NITROGEN 41.3 mg/dL (7-18)
[2021-05-26 08:56] LABS: MAGNESIUM 1.7 mg/dL (1.8-2.4)
[2021-05-26 08:57] LABS: CREATININE 1.9 mg/dL (0.55-1.3)
[2021-05-26 08:58] LABS: BILIRUBIN,TOTAL 2.7 mg/dL (0.2-1); TOT PROT 5.5 g/dl (6.4-8.2)
[2021-05-26 09:46] VITALS: BP 142/64; PULSE 64; TEMP 98.6
[2021-05-26] MEDS: hydrALAZINE HCL 50 MG TABLET (FP) PO SCH (09:58)
[2021-05-26] MEDS: ASPIRIN 81 MG CHEWABLE TABLETS PO SCH (09:58)
[2021-05-26] MEDS: TAMSULOSIN HCL 0.4 MG CAP PO SCH (09:58)
[2021-05-26] MEDS: POTASSIUM CHLORIDE TABS 20 MEQ TABLET.ER (FP) PO SCH (10:00)
[2021-05-26] MEDS: amLODIPine BESYLATE 5 MG TABLET (FP) PO SCH (10:01)
[2021-05-26] MEDS ORDERED: MAGNESIUM OXIDE 400 MG TABLET (FP) PO ONE (14:28)
== END 2021-05-26 15:40 | disposition short-term general hospital (02) | DRG 64 ==
LOC: JER 16:53 → JERBED 20:36 → OBSVTOIN 21:37 → J4S 22:55
PROVIDERS: ADMIT Internal Medicine; ATTEND Family Medicine
DX: I63.9 Cerebral infarction, unspecified (principal); I21.4 Non-ST elevation (NSTEMI) myocardial infarction; G12.29 Other motor neuron disease; L97.908 Non-pressure chronic ulcer of unspecified part of unspecified lower leg with other specified severity; N17.9 Acute kidney failure, unspecified; I50.30 Unspecified diastolic (congestive) heart failure; I13.0 Hypertensive heart and chronic kidney disease with heart failure and stage 1 through stage 4 chronic kidney disease, or unspecified chronic kidney disease; I50.32 Chronic diastolic (congestive) heart failure; I48.91 Unspecified atrial fibrillation; I25.10 Atherosclerotic heart disease of native coronary artery without angina pectoris; J44.9 Chronic obstructive pulmonary disease, unspecified; N40.0 Benign prostatic hyperplasia without lower urinary tract symptoms; E80.6 Other disorders of bilirubin metabolism; E78.5 Hyperlipidemia, unspecified; I25.2 Old myocardial infarction; E11.622 Type 2 diabetes mellitus with other skin ulcer; G51.0 Bell's palsy; R94.31 Abnormal electrocardiogram [ECG] [EKG]; I44.0 Atrioventricular block, first degree; D18.00 Hemangioma unspecified site; R74.8 Abnormal levels of other serum enzymes; R29.701 NIHSS score 1; E11.21 Type 2 diabetes mellitus with diabetic nephropathy; E11.42 Type 2 diabetes mellitus with diabetic polyneuropathy; E87.70 Fluid overload, unspecified; N28.1 Cyst of kidney, acquired; G47.00 Insomnia, unspecified; N18.9 Chronic kidney disease, unspecified; E11.65 Type 2 diabetes mellitus with hyperglycemia; E11.22 Type 2 diabetes mellitus with diabetic chronic kidney disease; Z95.5 Presence of coronary angioplasty implant and graft
CPT/HCPCS: 36415; 70450-TC; 70544-TC; 70551-TC; 71045-TC-FY; 71046-TC-FY; 76775-TC; 78452-TC; 80048; 80053; 80061; 81003; 82550; 82553; 82962; 83036; 83721; 83735; 83880; 84100; 84443; 84484; 85025; 85610; 85730; 86850; 86900; 86901; 87081; 93005; 93010; 93017; 93306-TC; 97116-GP; 97161-GP; 99291; A9502; C9803; G0378; J1644; J2785; U0003; U0005

== ENCOUNTER 2022-01-17 08:42 | Emergency (ER) | payer OTHER ==
[2022-01-17 09:22] VITALS: BP 0/0; PULSE 0; BMI 23.0
== END 2022-01-17 11:35 | disposition expired ==
LOC: JER 08:42
DX: I46.9 Cardiac arrest, cause unspecified (principal)
CPT/HCPCS: 99291